=== PATIENT | female | born 1960 | race Caucasian/White ===

== ENCOUNTER 2020-05-30 08:24 | Outpatient (REF) | payer OTHER, SELFPAY ==
[2020-05-30 09:14] LABS: MANUAL DIFF FLAG NO
[2020-05-30 09:27] LABS: Basophils Percent Auto 0.6 % (0-2); Eosinophils Absolute Auto 0.2 X10*3/uL (0.0-0.4); Eosinophils Percent Auto 2.7 % (0-4); Hematocrit 44.3 % (37-47); Hemoglobin 14.8 g/dl (12.0-16.0); Imm Gran Abs Auto 0.02 X10*3/uL (0.00-0.03); Imm Gran Pct Auto 0.3 % (0.0-0.4); Lymphocytes Absolute Auto 2.2 X10*3/uL (1.2-4.9); Lymphocytes Percent Auto 35.1 % (20-40); Mean Corpuscular HGB Conc 33.4 g/dl (31.0-35.0); Mean Corpuscular Hemoglobin 29.7 pg (27.0-33.0); Mean Corpuscular Volume 88.8 fL (80-98); Mean Platelet Volume 10.8 fL (9.4-12.3); Monocytes Absolute Auto 0.4 X10*3/uL (0.1-1.2); Neutrophils Absolute Auto 3.5 X10*3/uL (2.0-8.3); Neutrophils Percent Auto 55.3 % (45-73); Platelet Count 260 X10*3/uL (160-400); Red Blood Count 4.99 X10*6/uL (4.20-5.50); Red Cell Distribution Width 12.2 % (11.0-16.0); White Blood Count 6.3 X10*3/uL (4.8-10.8)
[2020-05-30 09:35] LABS: Alanine Aminotransferase 17 U/L (0-31); Albumin Level 3.8 g/dL (3.5-5.0); Alkaline Phosphatase 121 U/L (39-117); Aspartate Amino Transferase 17 U/L (5-31); Bilirubin Total 0.7 mg/dL (0.0-1.0); Blood Urea Nitrogen 22 mg/dL (9-16); Calcium 9.4 mg/dL (8.4-10.2); Cholesterol 226 mg/dL; Estimated Glomerular Filt Rate > 60; Glucose Fasting 83 mg/dL (60-99); HDL Cholesterol 49 mg/dL; LDL Cholesterol Calculated 157 mg/dl; Total Protein 6.2 g/dL (6.5-8.0); Triglycerides 101 mg/dL
[2020-05-30 09:48] LABS: Anion Gap 9 (12-20); Carbon Dioxide 29 mmol/L (22-29); Chloride 104 mmol/L (96-108); Potassium 3.9 mmol/l (3.3-5.1); Sodium 138 mmol/L (135-145)
[2020-05-30 09:51] LABS: Vitamin D 25-OH Total 22.7 ng/mL (>30)
[2020-05-30 10:09] LABS: Estimated Average Glucose 278 mg/dL; Hemoglobin A1c % 11.3 %
[2020-05-30 10:12] LABS: Creatinine Urine 108.69 mg/dL; Microalbum/Creatinine Ratio Ur 107.6 ug/mg cr
[2020-05-30 13:06] LABS: Reflex LDLD? No
== END 2020-05-30 08:25 | disposition home or self-care (01) ==
LOC: HO.LAB 08:24
PROVIDERS: PCP Internal Medicine; Visit Provider Internal Medicine
DX: Z00.00 Encounter for general adult medical examination without abnormal findings (principal); I10 Essential (primary) hypertension; E78.00 Pure hypercholesterolemia, unspecified; E11.9 Type 2 diabetes mellitus without complications; E55.9 Vitamin D deficiency, unspecified; D72.820 Lymphocytosis (symptomatic); F34.1 Dysthymic disorder; N95.8 Other specified menopausal and perimenopausal disorders
CPT/HCPCS: 36415; 80053; 80061; 82043; 82306; 83036; 85025

== ENCOUNTER 2020-09-05 07:41 | Outpatient (REF) | payer OTHER, SELFPAY ==
[2020-09-05 08:43] LABS: Estimated Average Glucose 341 mg/dL; Hemoglobin A1c % 13.5 %
[2020-09-05 09:05] LABS: Blood Urea Nitrogen 29 mg/dL (9-16); Glucose Fasting 136 mg/dL (60-99)
[2020-09-05 09:15] LABS: Vitamin D 25-OH Total 21.2 ng/mL (>30)
== END 2020-09-05 07:42 | disposition home or self-care (01) ==
LOC: HO.LAB 07:41
PROVIDERS: PCP Internal Medicine; Visit Provider Internal Medicine
DX: E11.9 Type 2 diabetes mellitus without complications (principal); R79.9 Abnormal finding of blood chemistry, unspecified; E55.9 Vitamin D deficiency, unspecified
CPT/HCPCS: 36415; 82306; 82947; 83036; 84520

== ENCOUNTER 2020-10-28 07:07 | Outpatient (REF) | payer OTHER, SELFPAY ==
[2020-10-28 08:16] LABS: Blood Urea Nitrogen 19 mg/dL (9-16); Estimated Glomerular Filt Rate > 60
== END 2020-10-28 07:08 | disposition home or self-care (01) ==
LOC: HO.LAB 07:07
PROVIDERS: PCP Internal Medicine; Visit Provider Internal Medicine
DX: R79.9 Abnormal finding of blood chemistry, unspecified (principal)
CPT/HCPCS: 36415; 82565; 84520

== ENCOUNTER 2020-12-02 11:27 | Outpatient (REF) | payer OTHER, SELFPAY ==
[2020-12-02 11:42] LABS: MANUAL DIFF FLAG NO
[2020-12-02 12:04] LABS: Basophils Absolute Auto 0.1 X10*3/uL (0.0-0.2); Eosinophils Absolute Auto 0.1 X10*3/uL (0.0-0.4); Eosinophils Percent Auto 2.3 % (0-4); Hemoglobin 15.9 g/dl (12.0-16.0); Imm Gran Abs Auto 0.01 X10*3/uL (0.00-0.03); Imm Gran Pct Auto 0.2 % (0.0-0.4); Lymphocytes Percent Auto 37.9 % (20-40); Mean Corpuscular HGB Conc 33.1 g/dl (31.0-35.0); Mean Corpuscular Hemoglobin 29.6 pg (27.0-33.0); Mean Corpuscular Volume 89.4 fL (80-98); Mean Platelet Volume 12.4 fL (9.4-12.3); Monocytes Absolute Auto 0.4 X10*3/uL (0.1-1.2); Monocytes Percent Auto 7.4 % (2-11); Neutrophils Absolute Auto 2.7 X10*3/uL (2.0-8.3); Neutrophils Percent Auto 51.2 % (45-73); Platelet Count 275 X10*3/uL (160-400); Red Blood Count 5.37 X10*6/uL (4.20-5.50); Red Cell Distribution Width 12.5 % (11.0-16.0); White Blood Count 5.2 X10*3/uL (4.8-10.8)
[2020-12-02 12:37] LABS: Glucose Urine UA >=1000 MG/DL (NEG); Leukocyte Esterase Urine NEG (NEG); Nitrite Urine NEG (NEG); PH 5.5 (5.0-8.0); Specific Gravity - Urine 1.025 (1.005-1.025); Urine Blood TRACE (NEG); Urine Ketones 15 MG/DL (NEG); Urine Protein NEG (NEG-TRACE)
[2020-12-02 12:40] LABS: Appearance Urine HAZY; Color Urine YELLOW
[2020-12-02 12:49] LABS: Alanine Aminotransferase 13 U/L (0-31); Albumin Level 4.2 g/dL (3.5-5.0); Alkaline Phosphatase 91 U/L (39-117); Anion Gap 18 (12-20); Aspartate Amino Transferase 14 U/L (5-31); Bilirubin Total 1.6 mg/dL (0.0-1.0); Blood Urea Nitrogen 35 mg/dL (9-16); Calcium 10.2 mg/dL (8.4-10.2); Carbon Dioxide 27 mmol/L (22-29); Chloride 97 mmol/L (96-108); Cholesterol 293 mg/dL; Estimated Glomerular Filt Rate > 60; Glucose Fasting 345 mg/dL (60-99); HDL Cholesterol 49 mg/dL; LDL Cholesterol Calculated 220 mg/dl; Sodium 138 mmol/L (135-145); Triglycerides 121 mg/dL
[2020-12-02 12:53] LABS: Vitamin D 25-OH Total 41.6 ng/mL (>30)
[2020-12-02 13:01] LABS: Microalbum/Creatinine Ratio Ur 79.4 ug/mg cr
[2020-12-02 13:03] LABS: Reflex LDLD? No
[2020-12-02 13:11] LABS: Bacteria Urine 3+ /LPF; RBC Urine 0 /HPF (0); Squamous Epithelial Cell Urine 3+ /LPF
[2020-12-02 13:14] LABS: Estimated Average Glucose 232 mg/dL; Hemoglobin A1c % 9.7 %
== END 2020-12-02 11:28 | disposition home or self-care (01) ==
LOC: HO.LNP 11:27
PROVIDERS: Visit Provider Internal Medicine
DX: Z00.00 Encounter for general adult medical examination without abnormal findings (principal); E11.9 Type 2 diabetes mellitus without complications; I10 Essential (primary) hypertension; E78.00 Pure hypercholesterolemia, unspecified; R79.9 Abnormal finding of blood chemistry, unspecified; E55.9 Vitamin D deficiency, unspecified; D72.820 Lymphocytosis (symptomatic)
CPT/HCPCS: 80053; 80061; 81001; 81003; 82043; 82306; 83036; 85025

== ENCOUNTER 2020-12-11 18:51 | Emergency (ER) | payer OTHER, SELFPAY ==
--- NOTE | ~2020-12-11 | CT_ITS ---
EXAMINATION: CT ABDOMEN AND PELVIS WITHOUT CONTRAST CLINICAL INFORMATION: Left flank pain. COMPARISON: 10/13/2019. TECHNIQUE: Contiguous axial thin section helical images of the abdomen and pelvis were performed without oral or IV contrast. The data set was reformatted in the coronal and sagittal planes and reviewed on an independent workstation. DLP: 616 mGy-cm. FINDINGS: The visualized lung bases are clear. The visualized portions of the heart are unremarkable. The liver is of normal size and attenuation without focal lesions nor intrahepatic biliary ductal dilation. A normal gallbladder is identified. There is no wall thickening or discernible pericholecystic fluid. The spleen, pancreas, adrenal glands are unremarkable. Both kidneys are of normal size and attenuation without hydronephrosis or nephrolithiasis. There is no abdominal free fluid. There is neither mesenteric nor retroperitoneal lymphadenopathy. There is sigmoid diverticulosis without evidence of diverticulitis; otherwise, unremarkable unopacified loops of small and large bowel are identified. A normal appendix is identified. There is no pelvic free fluid. The urinary bladder is unremarkable. There is neither pelvic nor inguinal lymphadenopathy. Bone windows: Neither sclerotic nor lytic bone lesions are identified. CT/CT abdomen pelvis wo con IMPRESSION: Neither hydronephrosis nor nephrolithiasis. No acute abdominal or pelvic inflammatory or infectious processes. Sigmoid diverticulosis without evidence of diverticulitis. Automated exposure control (Care Dose) Adjustment of the mA and/or kv according to patient size (this includes techniques or standardized protocols for targeted exams where dose is matched to indication / reason for exam; i.e. extremities or head).
[2020-12-11 19:54] VITALS: BP 202/76; PULSE 84; RESP 18; O2SAT 96; BMI 32.5
[2020-12-11 20:11] LABS: MANUAL DIFF FLAG NO
[2020-12-11 20:14] LABS: Glucose Urine UA >=1000 MG/DL (NEG); Leukocyte Esterase Urine NEG (NEG); Nitrite Urine NEG (NEG); PH 5.5 (5.0-8.0); Urine Blood NEG (NEG); Urine Ketones 15 MG/DL (NEG); Urine Protein 1+ MG/DL (NEG-TRACE)
[2020-12-11 20:16] LABS: Appearance Urine HAZY; Color Urine YELLOW
[2020-12-11 20:25] LABS: Basophils Absolute Auto 0.1 X10*3/uL (0.0-0.2); Eosinophils Absolute Auto 0.1 X10*3/uL (0.0-0.4); Eosinophils Percent Auto 1.6 % (0-4); Hematocrit 47.4 % (37-47); Hemoglobin 15.7 g/dl (12.0-16.0); Imm Gran Abs Auto 0.03 X10*3/uL (0.00-0.03); Imm Gran Pct Auto 0.5 % (0.0-0.4); Lymphocytes Absolute Auto 1.9 X10*3/uL (1.2-4.9); Lymphocytes Percent Auto 30.8 % (20-40); Mean Corpuscular HGB Conc 33.1 g/dl (31.0-35.0); Mean Corpuscular Hemoglobin 29.1 pg (27.0-33.0); Mean Corpuscular Volume 87.9 fL (80-98); Mean Platelet Volume 11.4 fL (9.4-12.3); Monocytes Absolute Auto 0.4 X10*3/uL (0.1-1.2); Monocytes Percent Auto 7.1 % (2-11); Neutrophils Absolute Auto 3.7 X10*3/uL (2.0-8.3); Platelet Count 273 X10*3/uL (160-400); Red Blood Count 5.39 X10*6/uL (4.20-5.50); Red Cell Distribution Width 12.1 % (11.0-16.0); White Blood Count 6.2 X10*3/uL (4.8-10.8)
[2020-12-11 20:32] LABS: Bacteria Urine TRACE /LPF; Squamous Epithelial Cell Urine 2+ /LPF; UACC CULT YES
[2020-12-11 20:47] LABS: Anion Gap 14 (12-20); Blood Urea Nitrogen 9 mg/dL (9-16); Calcium 9.6 mg/dL (8.4-10.2); Carbon Dioxide 29 mmol/L (22-29); Chloride 101 mmol/L (96-108); Creatinine Clr Calc Pharmacy 79.5; Estimated Glomerular Filt Rate > 60; Glucose Random 302 mg/dL (60-115); Potassium 4.4 mmol/L (3.3-5.1); Sodium 140 mmol/L (135-145)
[2020-12-12] VITALS: RESP 16
--- NOTE | 2020-12-12 00:03 | ED_ITS ---
HPI - General Adult General Chief complaint: Abdominal Pain Stated complaint: Flank Pain Time Seen by Provider: 12/11/20 23:31 Source: patient Mode of arrival: ambulatory Limitations: no limitations History of Present Illness HPI narrative: Patient comes emergency room complaining of left flank pain. Started yesterday, denies any injury. Patient has history of kidney stones, states that usually she is able to pass them. Patient states that the pain is 8/10, radiating towards the groin area, constant mild pain but occasionally gets very painful. Patient denies dysuria or hematuria, no abdominal pain MD complaint: Flank pain Related Data Previous Rx's Medication Instructions Recorded baclofen 10 mg PO BID #10 tab 12/12/20 tramadol 50 mg PO BID PRN #6 tab 12/12/20 Allergies Allergy/AdvReac Type Severity Reaction Status Date / Time Penicillins [PENICILLINS] Allergy Severe RASH Unverified 05/16/20 18:43 Sulfa (Sulfonamide Allergy Severe THROMBOCYTOPENIA, Unverified 05/16/20 18:43 Antibiotics) severe [SULFA (SULFONAMIDE ANTIBIOTICS)] penicillin V Allergy Unknown rash Verified 01/17/20 00:00 Review of Systems Review of Systems: Constitutional : No Weight loss, No Fever, No Chills, No Night Sweats, No Fatigue, No Malaise ENT/Mouth : No Hearing loss, No Ear Pain, No Nasal Congestion, No Sinus Pain, No Hoarseness, No sore throat, No Rhinorrhea, No Swallowing Difficulty Eyes: No Eye Pain, No Swelling, No Redness, No Foreign Body, No Discharge, No Vision Changes Cardiovascular : No Chest Pain, No SOB, No Dyspnea on Exertion, No Orthopnea, No Edema, No Palpitations Respiratory : No Cough, No Sputum, No Wheezing, No Smoke Exposure, No Dyspnea Gastrointestinal : No Nausea, No Vomiting, No Diarrhea, No Constipation, No abdominal Pain, No Hematochezia, No Melena Genitourinary : no irregular bleeding, No Dysuria, No Urinary Frequency, No Hematuria, No Urinary Incontinence, No Urgency, No Flank Pain, No Urinary Flow Changes, No Hesitancy Back: Complaining of left flank pain Musculoskeletal : No joint pain, No Myalgias, No Joint Swelling Skin : No Skin Lesions, No rash Neuro : No Weakness, No Numbness, No Paresthesias, No Loss of Consciousness, No Dizziness, No Headache Psych : No Anxiety/Panic, No Depression, No SI/HI/AH/VH, No Social Issues, Heme/Lymph: No Bruising, No Bleeding,No Lymphadenopathy Endocrine : No Polyuria, No Polydipsia, No Temperature Intolerance [facility] Past Medical History Medical History (Updated 12/12/20 @ 01:56 by Savanah Davis MD) Diabetes Nephrolithiasis Social History Social History Alcohol intake: never Smoking Status: Never smoker Advance Directives: No Physical Exam Vital Signs: Vital Signs: Last Vital Signs Pulse 84 12/11/20 19:54 Resp 16 12/12/20 00:00 BP 202/76 H 12/11/20 19:54 Pulse Ox 96 12/11/20 19:54 Body Mass Index 32.5 Appearance: Alert. Oriented X3. No acute distress. Eyes: Pupils equal, round and reactive to light. ENT: Pharynx normal. Neck: Normal inspection. Neck supple. No lymph nodes noted. No crepitus CVS: Normal heart rate and rhythm. Pulses normal. Normal S1 and S2 Respiratory: No respiratory distress. Breath sounds normal. No Wheezing. No rales Abdomen: Soft and nontender. No rigidity. No distention. Back: Positive flank pain left side Skin: Skin warm and dry. Normal skin color. Normal skin turgor. Extremities: No lower extremity edema. No lower extremity edema. No Lacerations. No Rash Neuro: Oriented X 3. No motor deficit. No sensory deficit. Moving all extermities. No slurred speech. Course Course Course Narrative: I discussed the labs and imaging with the patient, patient does not have nephrolithiasis. Patient states that she feels a lot of muscles reno in the back. Patient will be given 1 dose p.o. Valium and then we will re-evaluate Patient states that she feels much better now, states that she feels a bit sort but the intense pain resolved. Patient's pain likely secondary to muscle spasms Medical Decision Making Lab Data Result diagrams: 12/11/20 20:04 12/11/20 20:04 Labs: Lab Results 12/11/20 12/11/20 12/11/20 Range/Units 20:04 20:04 20:04 WBC 6.2 (4.8-10.8) X10*3/uL RBC 5.39 (4.20-5.50) X10*6/uL Hgb 15.7 (12.0-16.0) g/dl Hct 47.4 H (37-47) % MCV 87.9 (80-98) fL MCH 29.1 (27.0-33.0) pg MCHC 33.1 (31.0-35.0) g/dl RDW 12.1 (11.0-16.0) % Plt Count 273 (160-400) X10*3/uL MPV 11.4 (9.4-12.3) fL Immature Gran % (Auto) 0.5 H (0.0-0.4) % Neut % (Auto) 59.0 (45-73) % Lymph % (Auto) 30.8 (20-40) % [place] % (Auto) 7.1 (2-11) % Eos % (Auto) 1.6 (0-4) % Baso % (Auto) 1.0 (0-2) % Lymph # (Auto) 1.9 (1.2-4.9) X10*3/uL [place] # (Auto) 0.4 (0.1-1.2) X10*3/uL Eos # (Auto) 0.1 (0.0-0.4) X10*3/uL Baso # (Auto) 0.1 (0.0-0.2) X10*3/uL Abs Immat Gran (auto) 0.03 (0.00-0.03) X10*3/uL Absolute Neuts (auto) 3.7 (2.0-8.3) X10*3/uL Absolute Nucleated RBC 0.000 (0.0-0.012) X10*3/uL Nucleated RBC % (auto) 0.0 (0.0-0.2) /100WBC Sodium 140 (135-145) mmol/L Potassium 4.4 (3.3-5.1) mmol/L Chloride 101 (96-108) mmol/L Carbon Dioxide 29 (22-29) mmol/L Anion Gap 14 (12-20) BUN 9 D (9-16) mg/dL Creatinine 0.76 (0.5-1.4) mg/dL Estim Creat Clear Calc 79.5 Estimated GFR > 60 Random Glucose 302 H (60-115) mg/dL Calcium 9.6 (8.4-10.2) mg/dL Urine Color YELLOW Urine Appearance HAZY Urine pH 5.5 (5.0-8.0) Ur Specific [place] 1.020 (1.005-1.025) Urine Protein 1+ H (NEG-TRACE) MG/DL Urine Glucose (UA) >=1000 H (NEG) MG/DL Urine Ketones 15 (NEG) MG/DL Urine Blood NEG (NEG) Urine Nitrite NEG (NEG) Ur Leukocyte Esterase NEG (NEG) Urine RBC 1-4 (0) /HPF Urine WBC 15-29 H (0-4) /HPF Ur Squamous Epith Cells 2+ /LPF Urine Bacteria TRACE /LPF Urine Yeast 1+ /HPF Imaging Data CT scan - abdomen: Radiologist's impression: FINDINGS: The visualized lung bases are clear. The visualized portions of the heart are unremarkable. The liver is of normal size and attenuation without focal lesions nor intrahepatic biliary ductal dilation. A normal gallbladder is identified. There is no wall thickening or discernible pericholecystic fluid. The spleen, pancreas, adrenal glands are unremarkable. Both kidneys are of normal size and attenuation without hydronephrosis or nephrolithiasis. There is no abdominal free fluid. There is neither mesenteric nor retroperitoneal lymphadenopathy. There is sigmoid diverticulosis without evidence of diverticulitis; otherwise, unremarkable unopacified loops of small and large bowel are identified. A normal appendix is identified. There is no pelvic free fluid. The urinary bladder is unremarkable. There is neither pelvic nor inguinal lymphadenopathy. Bone windows: Neither sclerotic nor lytic bone lesions are identified. CT/CT abdomen pelvis wo con IMPRESSION: Neither hydronephrosis nor nephrolithiasis. No acute abdominal or pelvic inflammatory or infectious processes. Sigmoid diverticulosis without evidence of diverticulitis. Automated exposure control (Care Dose) Adjustment of the mA and/or kv according to patient size (this includes techniques or standardized protocols for targeted exams where dose is matched to indication / reason for exam; i.e. extremities or head). Discharge Plan Discharge Clinical Impression: Spasm of back muscles Patient Disposition: Home, Self-Care Instructions: Muscle Spasm (ED) Additional Instructions: Please follow-up with your primary care physician tomorrow. If you have any worsening or new symptoms, please return to the emergency room or call 911 Prescriptions: New baclofen 10 mg tablet 10 mg PO BID Qty: 10 RF: 0 tramadol 50 mg tablet 50 mg PO BID PRN (Reason: pain) Qty: 6 RF: 0
--- NOTE | 2020-12-12 00:06 | PC.NURSE ---
PT OFF FLOOR TO CT.
[2020-12-12] MEDS: 0.9 % Sodium Chloride 1,000 ML 999 ML IVCONT (00:50)
[2020-12-12] MEDS: Ketorolac Tromethamine 30 MG/ML VIAL IVPUSH (00:50)
[2020-12-12] MEDS: ondansetron HCL 4 MG/2 ML VIAL IVPUSH (00:50)
[2020-12-12] MEDS: diazePAM 5 MG TABLET PO (01:01)
[2020-12-12] MEDS: Morphine Sulfate 2 MG/ML CARTRIDGE IVPUSH (01:01)
== END 2020-12-12 02:26 | disposition home or self-care (01) ==
PROVIDERS: Emergency Provider Emergency Medicine; PCP Internal Medicine
DX: M62.830 Muscle spasm of back (principal); R10.9 Unspecified abdominal pain; Z79.899 Other long term (current) drug therapy
CPT/HCPCS: 36415; 74176; 80048; 81001; 85025; 87086; 96365; 96374; 96375; 99284; J1885; J2270; J2405

== ENCOUNTER 2020-12-31 10:32 | Outpatient (REF) | payer OTHER, SELFPAY ==
[2020-12-31 11:50] LABS: Blood Urea Nitrogen 14 mg/dL (9-16)
== END 2020-12-31 10:33 | disposition home or self-care (01) ==
LOC: HO.LNP 10:32
PROVIDERS: Visit Provider Internal Medicine
DX: R79.89 Other specified abnormal findings of blood chemistry (principal)
CPT/HCPCS: 84520

== ENCOUNTER 2021-03-06 10:20 | Outpatient (REF) | payer OTHER, SELFPAY ==
[2021-03-06 11:41] LABS: Alanine Aminotransferase 14 U/L (0-31); Albumin Level 3.8 g/dL (3.5-5.0); Alkaline Phosphatase 91 U/L (39-117); Aspartate Amino Transferase 20 U/L (5-31); Bilirubin Direct 0.5 mg/dL (0.0-0.5); Bilirubin Total 1.6 mg/dL (0.0-1.0); Cholesterol 238 mg/dL; HDL Cholesterol 47 mg/dL; LDL Cholesterol Calculated 163 mg/dl; Total Protein 6.4 g/dL (6.5-8.0); Triglycerides 144 mg/dL
[2021-03-06 11:42] LABS: Reflex LDLD? No
== END 2021-03-06 10:21 | disposition home or self-care (01) ==
LOC: HO.LNP 10:20
PROVIDERS: Visit Provider Internal Medicine
DX: E78.00 Pure hypercholesterolemia, unspecified (principal)
CPT/HCPCS: 80061; 80076

== ENCOUNTER → 2021-06-13 11:21 | Outpatient (BNVA) | payer SELFPAY | PROVIDERS: PCP Internal Medicine | DX: R76.11 Nonspecific reaction to tuberculin skin test without active tuberculosis (principal) ==

== ENCOUNTER 2021-12-05 19:39 | Inpatient (IN) | payer OTHER, SELFPAY ==
--- NOTE | 2021-12-05 | ECG_ITS ---
Test Reason : DYSPNEA Blood Pressure : / mmHG Vent. Rate : 128 BPM Atrial Rate : 128 BPM P-R Int : 192 ms QRS Dur : 066 ms QT Int : 266 ms P-R-T Axes : 074 050 195 degrees QTc Int : 388 ms Sinus tachycardia Left atrial enlargement ST & T wave abnormality, consider inferolateral ischemia Abnormal ECG No previous ECGs available Referred By: Generic ED Physician Electronically Signed By:CHRISTINA MCKEON MD
--- NOTE | ~2021-12-05 | XR_ITS ---
EXAMINATION: XR CHEST CLINICAL INFORMATION: 61-year-old female with shortness of breath COMPARISON: 10/09/2019 TECHNIQUE: Frontal view of the chest was obtained. FINDINGS: Allowing for difference in position and technique. There is no interval change in appearance of clear lungs and normal cardiomediastinal silhouette. XR/XR chest 1V IMPRESSION: No interval change and no acute abnormalities
[2021-12-05 20:02] VITALS: BP 200/104; PULSE 139; RESP 40; TEMP 37.2; O2SAT 98; BMI 23.5
[2021-12-05 20:07] LABS: Glucose, Whole Blood 462 mg/dL (60-115)
[2021-12-05 20:09] LABS: MANUAL DIFF FLAG NO
[2021-12-05 20:11] LABS: Basophils Absolute Auto 0.1 X10*3/uL (0.0-0.2); Basophils Percent Auto 0.7 % (0-2); Eosinophils Percent Auto 0.1 % (0-4); Hematocrit 54.1 % (37.0-47.0); Hemoglobin 17.4 g/dl (12.0-16.0); Imm Gran Abs Auto 0.37 X10*3/uL (0.00-0.03); Imm Gran Pct Auto 2.8 % (0.0-0.4); Lymphocytes Absolute Auto 3.7 X10*3/uL (1.2-4.9); Lymphocytes Percent Auto 27.8 % (20-40); Mean Corpuscular HGB Conc 32.2 g/dl (31.0-35.0); Mean Corpuscular Hemoglobin 29.9 pg (27.0-33.0); Mean Platelet Volume 10.7 fL (9.4-12.3); Monocytes Percent Auto 7.2 % (2-11); Neutrophils Absolute Auto 8.2 x10*3/uL (2.0-8.3); Neutrophils Percent Auto 61.4 % (45-73); Platelet Count 376 X10*3/uL (160-400); Red Blood Count 5.82 X10*6/uL (4.20-5.50); White Blood Count 13.4 X10*3/uL (4.8-10.8)
[2021-12-05 20:12] VITALS: BP 158/93; PULSE 126; RESP 30; O2SAT 99
[2021-12-05 20:17] LABS: Venous Blood Gas Refer to POC result
[2021-12-05 20:18] LABS: VBG Base Excess -28.1 mmol/L; VBG HCO3 3 mmol/L (22-26); VBG pCO2 16 mmHg; VBG pO2 65 mmHg
--- NOTE | 2021-12-05 20:22 | ED.SOB ---
HPI - SOB/Dyspnea General Chief Complaint: Dyspnea Stated Complaint: SoB, general faitgue Time Seen by Provider: 12/05/21 20:16 Source: patient Mode of arrival: ambulatory Limitations: no limitations History of Present Illness HPI Narrative: 61 years old female came in for evaluation of shortness of breath. insulin-dependent diabetes came in for shortness of breath for 1 day, patient has been compliant with her Humalog used as sliding scale and 70/30 insulin take 60 units in the morning, patient declined any fever or chills or sign of infection in particular no urinary symptoms except for polyuria and polydipsia, no abdominal pain. Patient never had complicated diabetes issue in the past. Related Data Home Medications Medication Instructions Recorded Confirmed albuterol sulfate 90 mcg/actuation 2 puff INHALATION Q4H PRN 12/05/21 12/05/21 aerosol inhaler amlodipine 5 mg tablet 1 tab PO DAILY 12/05/21 12/05/21 atorvastatin 80 mg tablet 1 tab PO DAILY 12/05/21 12/05/21 insulin NPH-regular 70-30 U-100 60 unit SUBCUT DAILY 12/05/21 insulin 100 unit/mL subcutaneous pen insulin lispro 100 unit/mL 1 sliding scale dose SUBCUT 12/05/21 12/05/21 subcutaneous pen (Humalog KwikPen USEASDIRECTD (U-100) Insulin) lisinopril 20 1 tab PO DAILY 12/05/21 12/05/21 mg-hydrochlorothiazide 25 mg tablet metformin 1,000 mg tablet 1 tab PO BID 12/05/21 12/05/21 sertraline 100 mg tablet 1 tab PO DAILY 12/05/21 12/05/21 Allergies Allergy/AdvReac Type Severity Reaction Status Date / Time Penicillins [PENICILLINS] Allergy Severe RASH Verified 12/05/21 20:04 Sulfa (Sulfonamide Allergy Severe THROMBOCYTOPENIA, Verified 12/05/21 20:04 Antibiotics) severe [SULFA (SULFONAMIDE ANTIBIOTICS)] penicillin V Allergy Unknown rash Verified 12/05/21 20:04 Review of Systems Review of Systems: All other systems are reviewed and are negative Constitutional: Reports as per HPI and Reports no additional constitutional complaints Eyes: Reports as per HPI and Reports no additional eye complaints Reports system reviewed and no additional complaints, except as documented Cardiovascular: Reports as per HPI and Reports no additional cardiovascular complaints Respiratory: Reports as per HPI and Reports no additional respiratory complaints Gastrointestinal: Reports as per HPI and Reports no additional gastrointestinal complaints Genitourinary: Reports no additional female genitourinary complaints Musculoskeletal: Reports no additional musculoskeletal complaints Skin/Breast: Reports system reviewed and no additional complaints, except as docu Psychiatric: Reports no additional psychiatric complaints Endocrine: Reports no additional endocrine complaints Hematologic/Lymphatic: Reports no additional hematologic/lymphatic complaints Allergic/Immunologic: Reports no additional allergic/immunologic complaints Reports system reviewed and no additional complaints, except as documented and Reports Abnormal speech present [facility] Past Medical History Medical History Diabetes Nephrolithiasis Social History Social History Alcohol intake: never Advance Directives: No Advance Directives Information Provided: No Physical Exam Vital Signs: Vital Signs: Last Vital Signs Temp 99 F 12/05/21 20:02 Pulse 122 H 12/05/21 21:26 Resp 28 H 12/05/21 21:26 BP 192/90 H 12/05/21 21:26 Pulse Ox 97 12/05/21 21:26 BMI result Body Mass Index 23.5 vital signs have been reviewed as appeared to be correct. Blood pressure normal. Heart rate elevated. Respiration rate elevated. Temperature normal. Oxygen saturation normal. Appearance: Alert. appear in acute distress due to tachypnea. Head: Normal external exam. Normocephalic. Atraumatic. No Morton signs noted. No raccoon eyes noted Eyes: PERRLA. EOMI. Conjunctiva and sclera normal. Eyelids normal. ENT: TM's Normal. Pharynx normal. Uvula midline. Dry mucous membranes. No trismus noted. No drooling noted. No muffled voice noted. Neck: Normal inspection. Neck supple. FROM. No adenopathy. Thyroid Normal. No meningeal signs. No neck mass noted. CVS: Normal heart rate and rhythm. Heart sound normal. No murmurs noted. Pulses normal throughout. Respiratory: . Painless inspiration. Breath sounds normal. No wheezes/rales/rhonchi noted. Chest nontender. No accessory muscle usage noted or decreased air movement noted. Abdomen: Soft and nontender. Bowel sounds normal in all 4 quadrants. No distention noted. No organomegaly noted. No visible injury noted. Back: No CVA tenderness. Full range of motion noted. Skin: Diffuse skin mottling. Extremities: No lower extremity edema. Extremities exhibit normal range of motion. Extremities nontender. Neuro: Oriented X 3. Cranial nerve exam: II-XII are grossly intact No motor deficit. No sensory deficit. Reflexes normal. Course Course Course Narrative: Assessment and plan. 61-year-old female in history of insulin diabetes type 1, came in with DKA of unclear underlying etiology, patient is dehydrated, patient is not producing urine yet, patient received 2 L of normal saline and started on insulin drip as per protocol. Reevaluation(s) Reevaluation #1: patient finished the 2 L of normal saline feeling subjectively better, however patient still tachypneic and tachycardic and appear dehydrated, repeat labs showed almost unchanged severe acidosis and very low bicarb. Will replete potassium IV, will give the patient bicarb replacement, continue with the insulin drip, broad-spectrum antibiotic for empirical coverage,cautiously continue IV hydration. Time: 11:00 Reevaluation #2: Patient feeling better, look more hydrated, breathing is feeling better, admit patient to ICU the case discussed with Dr. Rizzo. Time: 23:33 MDM - SOB/Dyspnea Medical Records Attestation: I reviewed the patient's medical records. Lab Data Attestation: I reviewed the patient's lab results. Result diagrams: 12/05/21 20:00 12/05/21 22:29 Labs: Lab Results 12/05/21 12/05/21 12/05/21 Range/Units 19:49 20:00 20:00 WBC 13.4 H (4.8-10.8) X10*3/uL RBC 5.82 H (4.20-5.50) X10*6/uL Hgb 17.4 H (12.0-16.0) g/dl Hct 54.1 H (37.0-47.0) % MCV 93.0 (80.0-98.0) fL MCH 29.9 (27.0-33.0) pg MCHC 32.2 (31.0-35.0) g/dl RDW 12.0 (11.0-16.0) % Plt Count 376 (160-400) X10*3/uL MPV 10.7 (9.4-12.3) fL Immature Gran % (Auto) 2.8 H (0.0-0.4) % Neut % (Auto) 61.4 (45-73) % Lymph % (Auto) 27.8 (20-40) % [place] % (Auto) 7.2 (2-11) % Eos % (Auto) 0.1 (0-4) % Baso % (Auto) 0.7 (0-2) % Lymph # (Auto) 3.7 (1.2-4.9) X10*3/uL [place] # (Auto) 1.0 (0.1-1.2) X10*3/uL Eos # (Auto) 0.0 (0.0-0.4) X10*3/uL Baso # (Auto) 0.1 (0.0-0.2) X10*3/uL Abs Immat Gran (auto) 0.37 H (0.00-0.03) X10*3/uL Absolute Neuts (auto) 8.2 (2.0-8.3) x10*3/uL Absolute Nucleated RBC 0.000 (0.0-0.012) X10*3/uL Nucleated RBC % (auto) 0.0 (0.0-0.2) /100WBC VBG pH (7.32-7.43) VBG pCO2 mmHg VBG pO2 mmHg VBG HCO3 (22-26) mmol/L VBG O2 Saturation % VBG Base Excess mmol/L Sodium 134 L (135-145) mmol/L Potassium 3.8 (3.3-5.1) mmol/L Chloride 101 (96-108) mmol/L Carbon Dioxide 5 L* D (22-29) mmol/L Anion Gap 32 H (12-20) BUN 17 H (9-16) mg/dL Creatinine 1.76 H (0.5-1.4) mg/dL Estim Creat Clear Calc 32.2 Estimated GFR 29 POC Glucose 462 H* (60-115) mg/dL Random Glucose 512 H* (60-115) mg/dL Osmolality (281-305) mosm/kg Lactic Acid (0.5-2.0) mmol/L Lactic Acid F/U @ 2Hr (0.5-2.0) mmol/L Calcium 10.5 H D (8.4-10.2) mg/dL Phosphorus (2.7-4.5) mg/dL Magnesium (1.6-2.6) mg/dL Total Bilirubin 0.4 (0.0-1.0) mg/dL AST 20 (5-31) U/L ALT 20 (0-31) U/L Alkaline Phosphatase 151 H D (39-117) U/L Troponin I High Sens (<3.5-17.0) ng/L Total Protein 7.9 D (6.5-8.0) g/dL Albumin 4.5 (3.5-5.0) g/dL Triglycerides mg/dL Lipase (8-78) U/L Salicylates (15-30) mg/dL Acetaminophen (<30) mcg/mL Ethyl Alcohol mg/dL Acetone, Qual (Negative) COVID-19 ([facility]) (Negative) COVID-19 Clin Com 12/05/21 12/05/21 12/05/21 Range/Units 20:00 20:00 20:07 WBC (4.8-10.8) X10*3/uL RBC (4.20-5.50) X10*6/uL Hgb (12.0-16.0) g/dl Hct (37.0-47.0) % MCV (80.0-98.0) fL MCH (27.0-33.0) pg MCHC (31.0-35.0) g/dl RDW (11.0-16.0) % Plt Count (160-400) X10*3/uL MPV (9.4-12.3) fL Immature Gran % (Auto) (0.0-0.4) % Neut % (Auto) (45-73) % Lymph % (Auto) (20-40) % [place] % (Auto) (2-11) % Eos % (Auto) (0-4) % Baso % (Auto) (0-2) % Lymph # (Auto) (1.2-4.9) X10*3/uL [place] # (Auto) (0.1-1.2) X10*3/uL Eos # (Auto) (0.0-0.4) X10*3/uL Baso # (Auto) (0.0-0.2) X10*3/uL Abs Immat Gran (auto) (0.00-0.03) X10*3/uL Absolute Neuts (auto) (2.0-8.3) x10*3/uL Absolute Nucleated RBC (0.0-0.012) X10*3/uL Nucleated RBC % (auto) (0.0-0.2) /100WBC VBG pH 6.90 L* (7.32-7.43) VBG pCO2 16 mmHg VBG pO2 65 mmHg VBG HCO3 3 L (22-26) mmol/L VBG O2 Saturation 86.0 % VBG Base Excess -28.1 mmol/L Sodium (135-145) mmol/L Potassium (3.3-5.1) mmol/L Chloride (96-108) mmol/L Carbon Dioxide (22-29) mmol/L Anion Gap (12-20) BUN (9-16) mg/dL Creatinine (0.5-1.4) mg/dL Estim Creat Clear Calc Estimated GFR POC Glucose (60-115) mg/dL Random Glucose (60-115) mg/dL Osmolality (281-305) mosm/kg Lactic Acid 2.9 H* (0.5-2.0) mmol/L Lactic Acid F/U @ 2Hr (0.5-2.0) mmol/L Calcium (8.4-10.2) mg/dL Phosphorus (2.7-4.5) mg/dL Magnesium (1.6-2.6) mg/dL Total Bilirubin (0.0-1.0) mg/dL AST (5-31) U/L ALT (0-31) U/L Alkaline Phosphatase (39-117) U/L Troponin I High Sens 13.1 (<3.5-17.0) ng/L Total Protein (6.5-8.0) g/dL Albumin (3.5-5.0) g/dL Triglycerides mg/dL Lipase (8-78) U/L Salicylates (15-30) mg/dL Acetaminophen (<30) mcg/mL Ethyl Alcohol mg/dL Acetone, Qual (Negative) COVID-19 ([facility]) (Negative) COVID-19 Clin Com 12/05/21 12/05/21 12/05/21 Range/Units 22:04 22:08 22:29 WBC (4.8-10.8) X10*3/uL RBC (4.20-5.50) X10*6/uL Hgb (12.0-16.0) g/dl Hct (37.0-47.0) % MCV (80.0-98.0) fL MCH (27.0-33.0) pg MCHC (31.0-35.0) g/dl RDW (11.0-16.0) % Plt Count (160-400) X10*3/uL MPV (9.4-12.3) fL Immature Gran % (Auto) (0.0-0.4) % Neut % (Auto) (45-73) % Lymph % (Auto) (20-40) % [place] % (Auto) (2-11) % Eos % (Auto) (0-4) % Baso % (Auto) (0-2) % Lymph # (Auto) (1.2-4.9) X10*3/uL [place] # (Auto) (0.1-1.2) X10*3/uL Eos # (Auto) (0.0-0.4) X10*3/uL Baso # (Auto) (0.0-0.2) X10*3/uL Abs Immat Gran (auto) (0.00-0.03) X10*3/uL Absolute Neuts (auto) (2.0-8.3) x10*3/uL Absolute Nucleated RBC (0.0-0.012) X10*3/uL Nucleated RBC % (auto) (0.0-0.2) /100WBC VBG pH (7.32-7.43) VBG pCO2 mmHg VBG pO2 mmHg VBG HCO3 (22-26) mmol/L VBG O2 Saturation % VBG Base Excess mmol/L Sodium (135-145) mmol/L Potassium (3.3-5.1) mmol/L Chloride (96-108) mmol/L Carbon Dioxide (22-29) mmol/L Anion Gap (12-20) BUN (9-16) mg/dL Creatinine (0.5-1.4) mg/dL Estim Creat Clear Calc Estimated GFR POC Glucose 398 H* (60-115) mg/dL Random Glucose (60-115) mg/dL Osmolality 325 H (281-305) mosm/kg Lactic Acid (0.5-2.0) mmol/L Lactic Acid F/U @ 2Hr (0.5-2.0) mmol/L Calcium (8.4-10.2) mg/dL Phosphorus (2.7-4.5) mg/dL Magnesium (1.6-2.6) mg/dL Total Bilirubin (0.0-1.0) mg/dL AST (5-31) U/L ALT (0-31) U/L Alkaline Phosphatase (39-117) U/L Troponin I High Sens (<3.5-17.0) ng/L Total Protein (6.5-8.0) g/dL Albumin (3.5-5.0) g/dL Triglycerides mg/dL Lipase (8-78) U/L Salicylates (15-30) mg/dL Acetaminophen (<30) mcg/mL Ethyl Alcohol < 10 mg/dL Acetone, Qual (Negative) COVID-19 ([facility]) (Negative) COVID-19 Clin Com 12/05/21 12/05/21 12/05/21 Range/Units 22:29 22:29 22:29 WBC (4.8-10.8) X10*3/uL RBC (4.20-5.50) X10*6/uL Hgb (12.0-16.0) g/dl Hct (37.0-47.0) % MCV (80.0-98.0) fL MCH (27.0-33.0) pg MCHC (31.0-35.0) g/dl RDW (11.0-16.0) % Plt Count (160-400) X10*3/uL MPV (9.4-12.3) fL Immature Gran % (Auto) (0.0-0.4) % Neut % (Auto) (45-73) % Lymph % (Auto) (20-40) % [place] % (Auto) (2-11) % Eos % (Auto) (0-4) % Baso % (Auto) (0-2) % Lymph # (Auto) (1.2-4.9) X10*3/uL [place] # (Auto) (0.1-1.2) X10*3/uL Eos # (Auto) (0.0-0.4) X10*3/uL Baso # (Auto) (0.0-0.2) X10*3/uL Abs Immat Gran (auto) (0.00-0.03) X10*3/uL Absolute Neuts (auto) (2.0-8.3) x10*3/uL Absolute Nucleated RBC (0.0-0.012) X10*3/uL Nucleated RBC % (auto) (0.0-0.2) /100WBC VBG pH (7.32-7.43) VBG pCO2 mmHg VBG pO2 mmHg VBG HCO3 (22-26) mmol/L VBG O2 Saturation % VBG Base Excess mmol/L Sodium (135-145) mmol/L Potassium (3.3-5.1) mmol/L Chloride (96-108) mmol/L Carbon Dioxide (22-29) mmol/L Anion Gap (12-20) BUN (9-16) mg/dL Creatinine (0.5-1.4) mg/dL Estim Creat Clear Calc Estimated GFR POC Glucose (60-115) mg/dL Random Glucose (60-115) mg/dL Osmolality (281-305) mosm/kg Lactic Acid (0.5-2.0) mmol/L Lactic Acid F/U @ 2Hr 2.9 H* (0.5-2.0) mmol/L Calcium (8.4-10.2) mg/dL Phosphorus (2.7-4.5) mg/dL Magnesium (1.6-2.6) mg/dL Total Bilirubin (0.0-1.0) mg/dL AST (5-31) U/L ALT (0-31) U/L Alkaline Phosphatase (39-117) U/L Troponin I High Sens (<3.5-17.0) ng/L Total Protein (6.5-8.0) g/dL Albumin (3.5-5.0) g/dL Triglycerides 576 mg/dL Lipase 75 (8-78) U/L Salicylates 6.2 L (15-30) mg/dL Acetaminophen < 1 (<30) mcg/mL Ethyl Alcohol mg/dL Acetone, Qual Large H (Negative) COVID-19 ([facility]) (Negative) COVID-19 Clin Com 12/05/21 12/05/21 12/05/21 Range/Units 22:29 22:29 22:30 WBC (4.8-10.8) X10*3/uL RBC (4.20-5.50) X10*6/uL Hgb (12.0-16.0) g/dl Hct (37.0-47.0) % MCV (80.0-98.0) fL MCH (27.0-33.0) pg MCHC (31.0-35.0) g/dl RDW (11.0-16.0) % Plt Count (160-400) X10*3/uL MPV (9.4-12.3) fL Immature Gran % (Auto) (0.0-0.4) % Neut % (Auto) (45-73) % Lymph % (Auto) (20-40) % [place] % (Auto) (2-11) % Eos % (Auto) (0-4) % Baso % (Auto) (0-2) % Lymph # (Auto) (1.2-4.9) X10*3/uL [place] # (Auto) (0.1-1.2) X10*3/uL Eos # (Auto) (0.0-0.4) X10*3/uL Baso # (Auto) (0.0-0.2) X10*3/uL Abs Immat Gran (auto) (0.00-0.03) X10*3/uL Absolute Neuts (auto) (2.0-8.3) x10*3/uL Absolute Nucleated RBC (0.0-0.012) X10*3/uL Nucleated RBC % (auto) (0.0-0.2) /100WBC VBG pH (7.32-7.43) VBG pCO2 mmHg VBG pO2 mmHg VBG HCO3 (22-26) mmol/L VBG O2 Saturation % VBG Base Excess mmol/L Sodium 137 (135-145) mmol/L Potassium 3.8 (3.3-5.1) mmol/L Chloride 107 (96-108) mmol/L Carbon Dioxide < 5 L* (22-29) mmol/L Anion Gap TNP (12-20) BUN 18 H (9-16) mg/dL Creatinine 1.56 H (0.5-1.4) mg/dL Estim Creat Clear Calc 36.3 Estimated GFR 34 POC Glucose (60-115) mg/dL Random Glucose 420 H* (60-115) mg/dL Osmolality (281-305) mosm/kg Lactic Acid (0.5-2.0) mmol/L Lactic Acid F/U @ 2Hr (0.5-2.0) mmol/L Calcium 9.6 D 9.7 (8.4-10.2) mg/dL Phosphorus 4.4 (2.7-4.5) mg/dL Magnesium 2.2 (1.6-2.6) mg/dL Total Bilirubin (0.0-1.0) mg/dL AST (5-31) U/L ALT (0-31) U/L Alkaline Phosphatase (39-117) U/L Troponin I High Sens (<3.5-17.0) ng/L Total Protein (6.5-8.0) g/dL Albumin (3.5-5.0) g/dL Triglycerides mg/dL Lipase (8-78) U/L Salicylates (15-30) mg/dL Acetaminophen (<30) mcg/mL Ethyl Alcohol mg/dL Acetone, Qual (Negative) COVID-19 ([facility]) Negative (Negative) COVID-19 Clin Com See Note 12/05/21 Range/Units 22:33 WBC (4.8-10.8) X10*3/uL RBC (4.20-5.50) X10*6/uL Hgb (12.0-16.0) g/dl Hct (37.0-47.0) % MCV (80.0-98.0) fL MCH (27.0-33.0) pg MCHC (31.0-35.0) g/dl RDW (11.0-16.0) % Plt Count (160-400) X10*3/uL MPV (9.4-12.3) fL Immature Gran % (Auto) (0.0-0.4) % Neut % (Auto) (45-73) % Lymph % (Auto) (20-40) % [place] % (Auto) (2-11) % Eos % (Auto) (0-4) % Baso % (Auto) (0-2) % Lymph # (Auto) (1.2-4.9) X10*3/uL [place] # (Auto) (0.1-1.2) X10*3/uL Eos # (Auto) (0.0-0.4) X10*3/uL Baso # (Auto) (0.0-0.2) X10*3/uL Abs Immat Gran (auto) (0.00-0.03) X10*3/uL Absolute Neuts (auto) (2.0-8.3) x10*3/uL Absolute Nucleated RBC (0.0-0.012) X10*3/uL Nucleated RBC % (auto) (0.0-0.2) /100WBC VBG pH 6.88 L* (7.32-7.43) VBG pCO2 19 mmHg VBG pO2 51 mmHg VBG HCO3 4 L (22-26) mmol/L VBG O2 Saturation 76.0 % VBG Base Excess -28.2 mmol/L Sodium (135-145) mmol/L Potassium (3.3-5.1) mmol/L Chloride (96-108) mmol/L Carbon Dioxide (22-29) mmol/L Anion Gap (12-20) BUN (9-16) mg/dL Creatinine (0.5-1.4) mg/dL Estim Creat Clear Calc Estimated GFR POC Glucose (60-115) mg/dL Random Glucose (60-115) mg/dL Osmolality (281-305) mosm/kg Lactic Acid (0.5-2.0) mmol/L Lactic Acid F/U @ 2Hr (0.5-2.0) mmol/L Calcium (8.4-10.2) mg/dL Phosphorus (2.7-4.5) mg/dL Magnesium (1.6-2.6) mg/dL Total Bilirubin (0.0-1.0) mg/dL AST (5-31) U/L ALT (0-31) U/L Alkaline Phosphatase (39-117) U/L Troponin I High Sens (<3.5-17.0) ng/L Total Protein (6.5-8.0) g/dL Albumin (3.5-5.0) g/dL Triglycerides mg/dL Lipase (8-78) U/L Salicylates (15-30) mg/dL Acetaminophen (<30) mcg/mL Ethyl Alcohol mg/dL Acetone, Qual (Negative) COVID-19 ([facility]) (Negative) COVID-19 Clin Com Critical Care Time Critical Care Time Critical Care Time: Yes Total Critical Care Time: 60 Attestation: I spent 60 minutes providing critical care service to the patient, this including time spent at the bedside to evaluate the patient, reassess the patient, monitoring vital signs, review labs, and radiographic studies, counseling the patient/family, discussing the case with consultants, disposition the patient. Discharge Plan Discharge Clinical Impression: DKA (diabetic ketoacidosis) Patient Disposition: Admitted As Inpatient
[2021-12-05] MEDS: 0.9 % Sodium Chloride 1,000 ML 999 ML IV ×2 (20:28→22:07)
[2021-12-05 20:29] LABS: Lactic Acid 2.9 mmol/L (0.5-2.0)
[2021-12-05 20:35] LABS: Troponin-I High Sensitivity 13.1 ng/L (<3.5-17.0)
[2021-12-05 20:38] LABS: Glucose Random 512 mg/dL (60-115)
[2021-12-05 20:47] LABS: Alanine Aminotransferase 20 U/L (0-31); Albumin Level 4.5 g/dL (3.5-5.0); Alkaline Phosphatase 151 U/L (39-117); Aspartate Amino Transferase 20 U/L (5-31); Bilirubin Total 0.4 mg/dL (0.0-1.0); Blood Urea Nitrogen 17 mg/dL (9-16); Calcium 10.5 mg/dL (8.4-10.2); Carbon Dioxide 5 mmol/L (22-29); Chloride 101 mmol/L (96-108); Creatinine Clr Calc Pharmacy 32.2; Estimated Glomerular Filt Rate 29; Potassium 3.8 mmol/L (3.3-5.1); Sodium 134 mmol/L (135-145); Total Protein 7.9 g/dL (6.5-8.0)
[2021-12-05 20:48] LABS: Anion Gap 32 (12-20)
[2021-12-05] MEDS: Insulin Regular/NS 100 UNIT/100 ML PLAST..BAG IVCONT ×3 (21:07→23:15)
--- NOTE | 2021-12-05 21:11 | PC.NURSE ---
Pt bolus with 10u insulin per protocol with edward quiros rn at bedside for verification before beginning gtt at 5u/hr
[2021-12-05 21:26] VITALS: BP 192/90; PULSE 122; RESP 28; O2SAT 97
[2021-12-05 22:05] LABS: Reflex Lactate? Lactic Acid Added
[2021-12-05 22:09] LABS: Glucose, Whole Blood 398 mg/dL (60-115)
--- NOTE | 2021-12-05 22:13 | PC.NURSE ---
Georgina BALTAZAR to bedside, aware of difficulty with lab draw. Pt with mottling to arms and legs. Pt remains on bedside radiation monitor. This RN asks Dr Kern and then Georgina BALTAZAR if they would like potassium repletion which they say no to at this time. K pending repeat BMP.
--- NOTE | 2021-12-05 22:23 | PHA.MEDREC ---
Pharmacy Consult ? Medication Reconciliation Pharmacy has completed the medication reconciliation. Pt states she takes humalog sliding scale and 70/30 60 units daily She also states taking metformin, lisinopril/hctz, atorvastatin, sertraline, amlodipine, and albuterol. Her last fill for these was 06/10/2021. There is no recent fill history for insulins and the pharmacy she uses is closed for the night. Will leave a note for [facility] to follow up with Lisa
[2021-12-05 22:29] LABS: Ethanol < 10 mg/dL
[2021-12-05 22:40] LABS: Venous Blood Gas Refer to POC result
[2021-12-05 22:41] LABS: VBG Base Excess -28.2 mmol/L; VBG HCO3 4 mmol/L (22-26); VBG pCO2 19 mmHg; VBG pH 6.88 (7.32-7.43); VBG pO2 51 mmHg
[2021-12-05 22:46] LABS: Acetone, serum QL Large (Negative)
[2021-12-05 22:51] LABS: Osmolality, Serum 325 mosm/kg (281-305)
[2021-12-05 22:53] LABS: COVID-19 Test Negative (Negative); IDNOW Serial# 55D5AD1C
[2021-12-05 22:54] LABS: Calcium 9.7 mg/dL (8.4-10.2); Magnesium 2.2 mg/dL (1.6-2.6); Phosphorus 4.4 mg/dL (2.7-4.5)
--- NOTE | 2021-12-05 22:54 | P.HPCC_ITS ---
History of Present Illness Date of Service: 12/05/21 <Demetria Rose PA-C - Last Filed: 12/06/21 05:55> Attending physician on admission: Jim Rizzo <Demetria Rose PA-C - Last Filed: 12/06/21 05:55> Chief Complaint: DKA <Demetria Rose PA-C - Last Filed: 12/06/21 05:55> Patient is a 61-year-old female with a past medical history of type 1 diabetes, HTN, HLD, kidney stones and asthma who came into the emergency department earlier today stating she was short of breath since yesterday. Patient states she last used her 60U of 70-30 insulin yesterday morning but did not take it this morning. Patient traveled by plane from [place] this morning and waited to go to the ED until she was back home. Patient denies any nausea, vomiting, chest pain, cough, abdominal pain, fever or chills. She does admit to excessive thirst and not eating for the past 2 days. Patient states this is never happened to her before and she has had Type 1 diabetes since she was 29 years old. Patient's vital signs during my exam were as follows, temp 99 degrees F, sinus tach 128BPM, respirations 28, blood pressure 192/90, pulse X 97% on room air. PE remarkable for Kussmaul breathing and olayinka mottling on bilateral upper and lowe r extremities. Labs in the ED were remarkable for WBC 13.4, serum bicarb 5, anion gap 32, BUN 17, creatinine 1.76, glucose 512, pH 6.9, pCO2 16, PO2 65, bicarb 3, O2 sat 86%, base excess -28.1, lactic acid 2.9. Chest x-ray negative for acute processes, CT of the abdomen and pelvis negative for acute process. Patient was started on insulin drip and given 2 L of normal saline in the ED. UA pending, COVID pending, U tox pending, sed rate pending, lupus panel pending, VARUN pending, Anca pending, 2nd set of VBG and BMP as well as acetaminophen, triglycerides, salicylate, calcium, magnesium, phosphorus, lipase all pending. Spoke with Dr. Rizzo, he agreed with assessment and plan, patient will be brought to the ICU for monitoring and treatment of her DKA. <Demetria Rose PA-C - Last Filed: 12/06/21 05:55> Review of Systems Review of Systems: Yes all other systems are reviewed and are negative <Demetria Rose PA-C - Last Filed: 12/06/21 05:55> [facility], LAT[facility] Past Medical History Medical History: Medical History (Updated 12/06/21 @ 10:21 by Jim Rizzo MD) Asthma Diabetes HLD (hyperlipidemia) Hypertension Nephrolithiasis <Demetria Rose PA-C - Last Filed: 12/06/21 05:55> Social History Social History: Social History Household Members: Spouse Housing: House Do you presently have visiting nurse or other home services: No Unable to assess alcohol history related to: Unknown Alcohol intake: never Patient Tobacco Use Status: Tobacco use Unknown Currently Displaying Signs/Symptoms of Drug Intoxication Withdrawal: No Advance Directives: No Advance Directives Information Provided: No Do you have thoughts of harming others: None Recently lost weight without trying: Unsure Patient : No : No Poor oral hygiene: No <Demetria Rose PA-C - Last Filed: 12/06/21 05:55> Meds Allergies/Adverse reactions: Allergies Allergy/AdvReac Type Severity Reaction Status Date / Time Penicillins [PENICILLINS] Allergy Severe RASH Verified 12/05/21 20:04 Sulfa (Sulfonamide Allergy Severe THROMBOCYTOPENIA, Verified 12/05/21 20:04 Antibiotics) severe [SULFA (SULFONAMIDE ANTIBIOTICS)] penicillin V Allergy Unknown rash Verified 12/05/21 20:04 <Demetria Rose PA-C - Last Filed: 12/06/21 05:55> Active Medications: Current Medications Dextrose (Dextrose 50 % 25 Gm/50 Ml Syringe) 25 gm IVPUSH Q30M PRN PRN Reason: Nursing Actions in Insulin Infusion Protocol Heparin Sodium (Porcine) (Heparin Sodium,Porcine 5,000 Unit/Ml Vial) 5,000 unit SUBCUT Q8H [facility] Insulin Human Regular (Myxredlin) 100 unit in 100 mls @ 0 mls/hr IVCONT .Q0M JUANITA; Protocol Last Admin: 12/05/21 22:13 Dose: 4 unit/hr, 4 mls/hr Documented by: Doxycycline Hyclate 100 mg/ (Sodium Chloride) 250 mls @ 166.67 mls/hr IV ONCE ONE Stop: 12/06/21 00:16 Vancomycin HCl 1,000 mg/ (Sodium Chloride) 270 mls @ 270 mls/hr IV ONCE ONE Stop: 12/05/21 23:46 Pharmacy Consult (Consult Rx Perform Med Rec) 1 each MISCELLANE ONCE PRN PRN Reason: Consult order <Demetria Rose PA-C - Last Filed: 12/06/21 05:55> Home medications: Home Medications Medication Instructions Recorded Confirmed Last Taken Type albuterol sulfate 90 mcg/actuation 2 puff INHALATION Q4H PRN 12/05/21 12/05/21 Unknown History aerosol inhaler amlodipine 5 mg tablet 1 tab PO DAILY 12/05/21 12/05/21 Unknown History atorvastatin 80 mg tablet 1 tab PO DAILY 12/05/21 12/05/21 Unknown History insulin NPH-regular 70-30 U-100 60 unit SUBCUT DAILY 12/05/21 Unknown History insulin 100 unit/mL subcutaneous pen insulin lispro 100 unit/mL 1 sliding scale dose SUBCUT 12/05/21 12/05/21 Unknown History subcutaneous pen (Humalog KwikPen USEASDIRECTD (U-100) Insulin) lisinopril 20 1 tab PO DAILY 12/05/21 12/05/21 Unknown History mg-hydrochlorothiazide 25 mg tablet metformin 1,000 mg tablet 1 tab PO BID 12/05/21 12/05/21 Unknown History sertraline 100 mg tablet 1 tab PO DAILY 12/05/21 12/05/21 Unknown History <Demetria Rose PA-C - Last Filed: 12/06/21 05:55> Physical Exam Vital Signs: Vital Signs: Last Vital Signs Temp 99 F 12/05/21 20:02 Pulse 122 H 12/05/21 21:26 Resp 28 H 12/05/21 21:26 BP 192/90 H 12/05/21 21:26 Pulse Ox 97 12/05/21 21:26 BMI result Body Mass Index 23.5 <STACIE Conner Last Filed: 12/06/21 05:55> Const: General: cooperative, acute distress respiratory (tachypneic) and tired appearing <Demetria Rose PA-C - Last Filed: 12/06/21 05:55> Nutritional Appearance: average body habitus <Demetria Rose PA-C - Last Filed: 12/06/21 05:55> Orientation/consciousness: patient oriented x3 <Demetria Rose PA-C - Last Filed: 12/06/21 05:55> HEENT: Head: Yes normal to inspection, Yes No palpable skull fracture present, Yes normocephalic and Yes atraumatic <Demetria Rose PA-C - Last Filed: 12/06/21 05:55> Face and sinus: Yes normal facial exam <Demetria Rose PA-C - Last Filed: 12/06/21 05:55> Eyes: General: appearance normal, both eyes and all related structures <Demetria Rose PA-C - Last Filed: 12/06/21 05:55> Pupils: Equal, round and reactive pupils present <Demetria Rose PA-C - Last Filed: 12/06/21 05:55> EOM: EOMs intact bilaterally <Demetria Rose PA-C - Last Filed: 12/06/21 05:55> Neck: Neck: Yes normal visual inspection, Yes full ROM, Yes trachea midline and Yes supple <Demetria Rose PA-C - Last Filed: 12/06/21 05:55> Resp: Effort & Inspection: tachypneic <Demetria Rose PA-C - Last Filed: 12/06/21 05:55> Auscultation: clear to auscultation bilaterally <Demetria Rose PA-C Keaton Row Last Filed: 12/06/21 05:55> Cardio: Jugular venous distension: no JVD <Demetria Rose PA-C Keaton Row Last Filed: 12/06/21 05:55> Rate: tachycardic <Demetria Rose PA-C Keaton Row Last Filed: 12/06/21 05:55> Rhythm: regular rhythm <Demetria Rose PA-C Keaton Row Last Filed: 12/06/21 05:55> Heart sounds: normal S1 and S2 <Demetria Rose PA-C - Last Filed: 12/06/21 05:55> GI: Inspection: Yes normal to inspection <Demetria Rose PA-C - Last Filed: 12/06/21 05:55> Palpation (GI): Soft to palpation and nontender <Demetria Rose PA-C - Last Filed: 12/06/21 05:55> Skin: General skin exam: mottling ( bilateral upper and lower extremities, olayinka pattern) <Demetria Rose PA-C - Last Filed: 12/06/21 05:55> Neuro: General: patient oriented x3 <Demetria Rose PA-C - Last Filed: 12/06/21 05:55> Cranial nerves: Yes Equal, round and reactive pupils present <Demetria Rose PA-C - Last Filed: 12/06/21 05:55> Cognition (Neuro): normal cognition <Demetria Rose PA-C - Last Filed: 12/06/21 05:55> Extrem: General: Yes full ROM and Yes no pedal edema <Demetria Rose PA-C - Last Filed: 12/06/21 05:55> Results Labs CBC and Chem 7: : 12/06/21 04:18 12/06/21 06:53 <Demetria Rose PA-C - Last Filed: 12/06/21 05:55> Labs: Laboratory Results - last 24 hr 12/05/21 12/05/21 12/05/21 19:49 20:00 20:00 MCV 93.0 MCH 29.9 MCHC 32.2 RDW 12.0 Plt Count 376 MPV 10.7 Immature Gran % (Auto) 2.8 H Neut % (Auto) 61.4 Lymph % (Auto) 27.8 Gila % (Auto) 7.2 Eos % (Auto) 0.1 Baso % (Auto) 0.7 Lymph # (Auto) 3.7 Gila # (Auto) 1.0 Eos # (Auto) 0.0 Baso # (Auto) 0.1 Abs Immat Gran (auto) 0.37 H Absolute Neuts (auto) 8.2 Absolute Nucleated RBC 0.000 Nucleated RBC % (auto) 0.0 VBG pH VBG pCO2 VBG pO2 VBG HCO3 VBG O2 Saturation VBG Base Excess Anion Gap 32 H Estim Creat Clear Calc 32.2 Estimated GFR 29 POC Glucose 462 H* Random Glucose 512 H* Osmolality Lactic Acid Calcium 10.5 H D Phosphorus Magnesium Total Bilirubin 0.4 AST 20 ALT 20 Alkaline Phosphatase 151 H D Troponin I High Sens Total Protein 7.9 D Albumin 4.5 Ethyl Alcohol Acetone, Qual COVID-19 ([facility]) COVID-19 [place] 12/05/21 12/05/21 12/05/21 20:00 20:00 20:07 MCV MCH MCHC RDW Plt Count MPV Immature Gran % (Auto) Neut % (Auto) Lymph % (Auto) Gila % (Auto) Eos % (Auto) Baso % (Auto) Lymph # (Auto) Gila # (Auto) Eos # (Auto) Baso # (Auto) Abs Immat Gran (auto) Absolute Neuts (auto) Absolute Nucleated RBC Nucleated RBC % (auto) VBG pH 6.90 L* VBG pCO2 16 VBG pO2 65 VBG HCO3 3 L VBG O2 Saturation 86.0 VBG Base Excess -28.1 Anion Gap Estim Creat Clear Calc Estimated GFR POC Glucose Random Glucose Osmolality Lactic Acid 2.9 H* Calcium Phosphorus Magnesium Total Bilirubin AST ALT Alkaline Phosphatase Troponin I High Sens 13.1 Total Protein Albumin Ethyl Alcohol Acetone, Qual COVID-19 ([facility]) COVID-Beep 12/05/21 12/05/21 12/05/21 22:04 22:08 22:29 MCV MCH MCHC RDW Plt Count MPV Immature Gran % (Auto) Neut % (Auto) Lymph % (Auto) Gila % (Auto) Eos % (Auto) Baso % (Auto) Lymph # (Auto) Gila # (Auto) Eos # (Auto) Baso # (Auto) Abs Immat Gran (auto) Absolute Neuts (auto) Absolute Nucleated RBC Nucleated RBC % (auto) VBG pH VBG pCO2 VBG pO2 VBG HCO3 VBG O2 Saturation VBG Base Excess Anion Gap Estim Creat Clear Calc Estimated GFR POC Glucose 398 H* Random Glucose Osmolality 325 H Lactic Acid Calcium Phosphorus Magnesium Total Bilirubin AST ALT Alkaline Phosphatase Troponin I High Sens Total Protein Albumin Ethyl Alcohol < 10 Acetone, Qual COVID-19 ([facility]) COVID-19 Jamalon 12/05/21 12/05/21 12/05/21 22:29 22:29 22:30 MCV MCH MCHC RDW Plt Count MPV Immature Gran % (Auto) Neut % (Auto) Lymph % (Auto) Gila % (Auto) Eos % (Auto) Baso % (Auto) Lymph # (Auto) Gila # (Auto) Eos # (Auto) Baso # (Auto) Abs Immat Gran (auto) Absolute Neuts (auto) Absolute Nucleated RBC Nucleated RBC % (auto) VBG pH VBG pCO2 VBG pO2 VBG HCO3 VBG O2 Saturation VBG Base Excess Anion Gap Estim Creat Clear Calc Estimated GFR POC Glucose Random Glucose Osmolality Lactic Acid Calcium 9.7 D Phosphorus 4.4 Magnesium 2.2 Total Bilirubin AST ALT Alkaline Phosphatase Troponin I High Sens Total Protein Albumin Ethyl Alcohol Acetone, Qual Large H COVID-19 ([facility]) Negative COVID-19 Clin Com See Note 12/05/21 22:33 MCV MCH MCHC RDW Plt Count MPV Immature Gran % (Auto) Neut % (Auto) Lymph % (Auto) Gila % (Auto) Eos % (Auto) Baso % (Auto) Lymph # (Auto) Gila # (Auto) Eos # (Auto) Baso # (Auto) Abs Immat Gran (auto) Absolute Neuts (auto) Absolute Nucleated RBC Nucleated RBC % (auto) VBG pH 6.88 L* VBG pCO2 19 VBG pO2 51 VBG HCO3 4 L VBG O2 Saturation 76.0 VBG Base Excess -28.2 Anion Gap Estim Creat Clear Calc Estimated GFR POC Glucose Random Glucose Osmolality Lactic Acid Calcium Phosphorus Magnesium Total Bilirubin AST ALT Alkaline Phosphatase Troponin I High Sens Total Protein Albumin Ethyl Alcohol Acetone, Qual COVID-19 ([facility]) COVID-19 Clin Com <Demetria Rose PA-C - Last Filed: 12/06/21 05:55> Imaging Radiologist's Impressions: Impressions Chest X-Ray 12/05/21 20:33 IMPRESSION: No interval change and no acute abnormalities CT/CT abdomen pelvis wo con IMPRESSION: ? Neither hydronephrosis nor nephrolithiasis. No acute abdominal or pelvic inflammatory or infectious processes. ? Sigmoid diverticulosis without evidence of diverticulitis. <STACIE Conner Last Filed: 12/06/21 05:55> Assessment and Plan (1) DKA (diabetic ketoacidosis): Status: Acute <Demetria Rose PA-C - Last Filed: 12/06/21 05:55> Continue IVF, insulin gtt, POC hourly, BMP & VBG Q3H and follow LA, replete electrolytes as needed, monitor breathing <Demetria Rose PA-C - Last Filed: 12/06/21 05:55> (2) High triglycerides: Status: Acute <Demetria Rose PA-C - Last Filed: 12/06/21 05:55> (3) BART (acute kidney injury): Status: Acute <Demetria Rose PA-C - Last Filed: 12/06/21 05:55> 2/2 dehydration, IVF and follow renal indices <Demetria Rose PA-C - Last Filed: 12/06/21 05:55> Plan History and physical reviewed and discussed with mid level and agree with the plan fluid management clearly needs to be more aggressive in addition to being tailored for electrolyte repletion and and a further exhaustive look into precipitating reason namely infection versus unstable hemodynamic issue etc. <Jim Rizzo MD - Last Filed: 12/06/21 10:52> Critical Care Time Critical Care Time (minutes): 60 <Demetria Rose PA-C - Last Filed: 12/06/21 05:55>
[2021-12-05 22:56] LABS: Acetaminophen LAB < 1 mcg/mL (<30); Blood Urea Nitrogen 18 mg/dL (9-16); Calcium 9.6 mg/dL (8.4-10.2); Carbon Dioxide < 5 mmol/L (22-29); Chloride 107 mmol/L (96-108); Creatinine Clr Calc Pharmacy 36.3; Estimated Glomerular Filt Rate 34; Glucose Random 420 mg/dL (60-115); Lipase 75 U/L (8-78); Potassium 3.8 mmol/L (3.3-5.1); Salicylate 6.2 mg/dL (15-30); Sodium 137 mmol/L (135-145); Triglycerides 576 mg/dL; ~Lactic Acid-LAB USE ONLY 2.9 mmol/L (0.5-2.0)
--- NOTE | 2021-12-05 22:58 | PC.NURSE ---
Dr Kern aware of pt's critical labs (glucose, lactic, and bicarb) This RN asks Dr Kern if he would like to give bicarb and potassium. Erlin states he will add orders.
--- NOTE | 2021-12-05 23:06 | PC.NURSE ---
this rn called pharmacy to verify the cefepime dosing as two orders are active; 1 for 1g and 1 for 2g. Per pharmacy, pharm to cancel 1g cefepime and keep 2g cefepime as ordered.
[2021-12-05 23:09] LABS: Glucose, Whole Blood 384 mg/dL (60-115)
[2021-12-05] MEDS: Sodium Bicarbonate 8.4% 50 MEQ/50 ML SYRINGE IVPUSH (23:18)
[2021-12-05] MEDS: Potassium Chloride/H20 10 MEQ/100 ML PIGGYBACK 100 MEQ IV (23:26)
[2021-12-05] MEDS: Heparin Sodium,Porcine 5,000 UNIT/ML VIAL 5000 UNIT SUBCUT (23:30)
[2021-12-05] MEDS: Lactated Ringers 1,000 ML 999 ML IV (23:35)
[2021-12-05 23:39] VITALS: BP 157/79; PULSE 122; RESP 24; O2SAT 100
[2021-12-05 23:49] LABS: Appearance Urine HAZY; Color Urine YELLOW; Glucose Urine UA 500 MG/DL (NEG); Leukocyte Esterase Urine NEG (NEG); Nitrite Urine NEG (NEG); PH 5.5 (5.0-8.0); Specific Gravity - Urine >= 1.030 (1.005-1.025); UACC Culture Trigger NO; Urine Blood 2+ (NEG); Urine Ketones >=80 MG/DL (NEG); Urine Protein 2+ MG/DL (NEG-TRACE)
[2021-12-05 23:58] LABS: Erythrocyte Sedimentation Rate 18 MM/HR (0-20)
[2021-12-05 23:58] LABS: Bacteria Urine TRACE /LPF; WBC Urine 0 /HPF (0-4)
[2021-12-06] VITALS (24 sets, daily range): BP systolic 95–166; BP diastolic 56–89; PULSE 97–121; RESP 15–28; TEMP 36.7–38.2; O2SAT 93–100; BMI 24.3
[2021-12-06 00:02] LABS: Amphetamine Screen Urine Not Detected (Not Detect); Barbiturates, Urine Not Detected (Not Detect); Benzodiazepines Screen Urine Not Detected (Not Detect); Cannabinoid Screen Urine Not Detected (Not Detect); Cocaine Screen Urine Not Detected (Not Detect); Fentanyl, urine Not Detected (Not Detect); Opiate Screen Urine Not Detected (Not Detect); Phencyclidine Screen Urine Not Detected (Not Detect)
[2021-12-06 00:23] LABS: Glucose, Whole Blood 310 mg/dL (60-115)
[2021-12-06 00:37] LABS: Reflex Lactate? 2 Y
[2021-12-06] MEDS: Doxycycline Hyclate 100 MG in 0.9 % Sodium Chloride 250 ML 166.67 MG IV (00:38)
[2021-12-06] MEDS: 0.9 % Sodium Chloride 1,000 ML 999 ML IV ×2 (00:39→01:39)
[2021-12-06 01:02] LABS: Glucose, Whole Blood 268 mg/dL (60-115)
[2021-12-06] MEDS: Sodium Bicarbonate 8.4% 50 MEQ/50 ML SYRINGE IVPUSH (01:11)
[2021-12-06 01:19] LABS: VBG Base Excess -22.8 mmol/L; VBG HCO3 4 mmol/L (22-26); VBG pCO2 14 mmHg; VBG pH 7.08 (7.32-7.43); VBG pO2 39 mmHg
[2021-12-06 01:33] LABS: Venous Blood Gas Refer to POC result
[2021-12-06] MEDS: Labetalol HCL 100 MG/20 ML VIAL 10 MG IVPUSH (01:41)
[2021-12-06 01:44] LABS: Anion Gap 24 (12-20); Blood Urea Nitrogen 17 mg/dL (9-16); Calcium 9.1 mg/dL (8.4-10.2); Carbon Dioxide 6 mmol/L (22-29); Chloride 111 mmol/L (96-108); Creatinine Clr Calc Pharmacy 45.7; Estimated Glomerular Filt Rate 44; Glucose Random 301 mg/dL (60-115); Potassium 3.3 mmol/L (3.3-5.1); Sodium 138 mmol/L (135-145); ~Lactic Acid-LAB USE ONLY 2.2 mmol/L (0.5-2.0)
[2021-12-06 01:58] LABS: Glucose, Whole Blood 217 mg/dL (60-115)
[2021-12-06] MEDS: Potassium Chloride/H20 10 MEQ/100 ML PIGGYBACK 100 MEQ IV ×8 (02:13→18:20)
[2021-12-06] MEDS: Dextrose 5 % and Lactated Ring 1,000 ML 999 ML IVCONT (02:20)
[2021-12-06 03:05] LABS: Glucose, Whole Blood 251 mg/dL (60-115)
[2021-12-06] MEDS: Dextrose 5 % and Lactated Ring 1,000 ML 125 ML IVCONT (03:44)
[2021-12-06 03:56] LABS: Glucose, Whole Blood 345 mg/dL (60-115)
[2021-12-06 04:26] LABS: VBG Base Excess -15.9 mmol/L; VBG HCO3 9 mmol/L (22-26); VBG pCO2 20 mmHg; VBG pH 7.23 (7.32-7.43); VBG pO2 32 mmHg
[2021-12-06 04:27] LABS: MANUAL DIFF FLAG NO
[2021-12-06 04:33] LABS: Basophils Percent Auto 0.5 % (0-2); Eosinophils Absolute Auto 0.1 X10*3/uL (0.0-0.4); Eosinophils Percent Auto 1.1 % (0-4); Hematocrit 48.2 % (37.0-47.0); Hemoglobin 16.4 g/dl (12.0-16.0); Imm Gran Abs Auto 0.11 X10*3/uL (0.00-0.03); Imm Gran Pct Auto 1.4 % (0.0-0.4); Mean Corpuscular Hemoglobin 29.9 pg (27.0-33.0); Mean Platelet Volume 10.1 fL (9.4-12.3); Monocytes Absolute Auto 0.7 X10*3/uL (0.1-1.2); Monocytes Percent Auto 8.7 % (2-11); Neutrophils Absolute Auto 5.1 x10*3/uL (2.0-8.3); Neutrophils Percent Auto 63.3 % (45-73); Platelet Count 262 X10*3/uL (160-400); Red Blood Count 5.48 X10*6/uL (4.20-5.50); Red Cell Distribution Width 11.8 % (11.0-16.0)
[2021-12-06 04:51] LABS: Venous Blood Gas Refer to POC result
[2021-12-06 04:59] LABS: Anion Gap 22 (12-20); Blood Urea Nitrogen 15 mg/dL (9-16); Calcium 8.8 mg/dL (8.4-10.2); Carbon Dioxide 9 mmol/L (22-29); Chloride 112 mmol/L (96-108); Creatinine Clr Calc Pharmacy 50.2; Estimated Glomerular Filt Rate 49; Glucose Random 329 mg/dL (60-115); Magnesium 1.5 mg/dL (1.6-2.6); Phosphorus 1.4 mg/dL (2.7-4.5); Potassium 3.1 mmol/L (3.3-5.1); Sodium 140 mmol/L (135-145)
[2021-12-06 05:33] LABS: Glucose, Whole Blood 289 mg/dL (60-115)
[2021-12-06] MEDS: ondansetron HCL 4 MG/2 ML VIAL IVPUSH (05:33)
[2021-12-06] MEDS: Potassium Phosphate/NS 15 MMOL/250 ML PLAST..BAG 62.5 MMOL IV ×3 (05:37→22:50)
[2021-12-06] MEDS: Magnesium Sulfate/D5W 1 GM/100 ML PIGGYBACK IV ×2 (05:37→16:16)
[2021-12-06 06:04] LABS: Glucose, Whole Blood 278 mg/dL (60-115)
--- NOTE | 2021-12-06 06:11 | PC.NURSE ---
upon intial contact time 0000 pt was alert and oriented, sinus tach, LS clear, no SOB, ABD soft non-tender. Mix placed at approximately 0030. Pt has had out put of dilute urine 400-600 an hour. Lower ext mottled with slight mottling on the upper ext. At approximately 0500 pt had an episode of N/V/D. It was noted mottling had improved and skin returned to normal. Pt remains alert and oriented with improvement in skin and urine is slowly becoming more concentrated. PT is on insulin drip for DKA protocol currently @ 5 units an hour.
--- NOTE | 2021-12-06 06:28 | ECG_ITS ---
Test Reason : cp Blood Pressure : / mmHG Vent. Rate : 108 BPM Atrial Rate : 108 BPM P-R Int : 244 ms QRS Dur : 066 ms QT Int : 338 ms P-R-T Axes : 053 023 219 degrees QTc Int : 452 ms Sinus tachycardia with 1st degree A-V block Possible Left atrial enlargement Septal infarct , age undetermined T wave abnormality, consider inferolateral ischemia Abnormal ECG When compared with ECG of 05-DEC-2021 19:52, VA interval has increased Inverted T waves have replaced nonspecific T wave abnormality in Inferior leads Inverted T waves have replaced nonspecific T wave abnormality in Lateral leads Referred By: Demetria Rose Electronically Signed By:Boogie Pickett
[2021-12-06 07:00] LABS: VBG Base Excess -10.2 mmol/L; VBG HCO3 12 mmol/L (22-26); VBG pCO2 21 mmHg; VBG pH 7.37 (7.32-7.43); VBG pO2 68 mmHg
[2021-12-06 07:02] LABS: Glucose, Whole Blood 271 mg/dL (60-115)
[2021-12-06 07:22] LABS: Lactic Acid 1.1 mmol/L (0.5-2.0)
[2021-12-06 07:38] LABS: Blood Urea Nitrogen 13 mg/dL (9-16); Calcium 8.3 mg/dL (8.4-10.2); Creatinine Clr Calc Pharmacy 57.3; Estimated Glomerular Filt Rate 57; Glucose Random 286 mg/dL (60-115)
[2021-12-06 07:47] LABS: Anion Gap 14 (12-20); Carbon Dioxide 12 mmol/L (22-29); Chloride 116 mmol/L (96-108); Potassium 2.8 mmol/L (3.3-5.1); Sodium 139 mmol/L (135-145)
[2021-12-06 07:50] LABS: Troponin-I High Sensitivity 57.4 ng/L (<3.5-17.0)
[2021-12-06 08:08] LABS: Glucose, Whole Blood 254 mg/dL (60-115)
[2021-12-06] MEDS: Heparin Sodium,Porcine 5,000 UNIT/ML VIAL 5000 UNIT SUBCUT ×3 (08:10→22:49)
[2021-12-06] MEDS: Sertraline HCL 100 MG TABLET PO (08:11)
[2021-12-06] MEDS: lisinopriL 20 MG TABLET PO (08:11)
[2021-12-06] MEDS: amLODIPine Besylate 5 MG TABLET PO (08:11)
[2021-12-06] MEDS: Atorvastatin Calcium 80 MG TABLET PO (08:11)
[2021-12-06 09:02] LABS: Glucose, Whole Blood 227 mg/dL (60-115)
[2021-12-06] MEDS: Insulin Regular/NS 100 UNIT/100 ML PLAST..BAG 6 UNIT IVCONT (09:42)
[2021-12-06 10:01] LABS: Glucose, Whole Blood 205 mg/dL (60-115)
--- NOTE | 2021-12-06 10:15 | P.PNCC_ITS ---
Subjective Subjective Date of Service: 12/06/21 Interval History: 61-year-old female type 2 diabetic presents with profound diabetic ketoacidosis without an apparent precipitating reason and pH of 6.9 and serum bicarb is low is 3 and obviously the nope pretty profound hypophosphatemia hypokalemia as expected but no evidence of pancreatitis no bleed no acute cardiovascular issue no apparent infectious source and no evidence of apparent medication contribution either She is insulin dependent and also takes metformin and she is a hyperlipidemic and hypertensive by history as well with no history of cardiac issues Bedside echo reveals normal LV in our V function without wall motion abnormality despite the EKG that shows normal sinus rhythm and diffuse nonspecific ST-T changes but the potentially some pro a progression of T-wave inversion noticed almost globally but again troponins negative and there is no wall motion abnormality so most likely to be metabolic in origin Also hypomagnesemic Currently awake and able to talk with gradually repairing negative base excess as well as pH and the secondary symptoms of abdominal discomfort etc. oral subsiding Critical Care Time (minutes): 60 Physical Exam Vital Signs: Vital Signs: Last Vital Signs Temp 99.7 F 12/06/21 09:00 Pulse 109 H 12/06/21 09:00 Resp 15 12/06/21 09:00 BP 157/83 H 12/06/21 09:00 Pulse Ox 99 12/06/21 09:00 BMI result Body Mass Index 24.3 Good cognitive function and nonfocal neurologically Bedside echo with normal cardiac function and normal on IVC diameter with good inspiratory collapse so she is euvolemic Chest is clear to chest x-ray and exam Abdomen benign no again a megaly Skin intact with no edema no acrocyanosis Objective Data Labs CBC & Chem 7: 12/06/21 04:18 12/06/21 06:53 Labs: Laboratory Results - last 24 hr 12/05/21 12/05/21 12/05/21 19:49 20:00 20:00 WBC 13.4 H RBC 5.82 H Hgb 17.4 H Hct 54.1 H MCV 93.0 MCH 29.9 MCHC 32.2 RDW 12.0 Plt Count 376 MPV 10.7 Immature Gran % (Auto) 2.8 H Neut % (Auto) 61.4 Lymph % (Auto) 27.8 Patrick % (Auto) 7.2 Eos % (Auto) 0.1 Baso % (Auto) 0.7 Lymph # (Auto) 3.7 Patrick # (Auto) 1.0 Eos # (Auto) 0.0 Baso # (Auto) 0.1 Abs Immat Gran (auto) 0.37 H Absolute Neuts (auto) 8.2 Absolute Nucleated RBC 0.000 Nucleated RBC % (auto) 0.0 ESR VBG pH VBG pCO2 VBG pO2 VBG HCO3 VBG O2 Saturation VBG Base Excess Sodium 134 L Potassium 3.8 Chloride 101 Carbon Dioxide 5 L* D Anion Gap 32 H BUN 17 H Creatinine 1.76 H Estim Creat Clear Calc 32.2 Estimated GFR 29 POC Glucose 462 H* Random Glucose 512 H* Osmolality Lactic Acid Lactic Acid F/U @ 2Hr Lactic Acid F/U @ 4Hr Calcium 10.5 H D Phosphorus Magnesium Total Bilirubin 0.4 AST 20 ALT 20 Alkaline Phosphatase 151 H D Troponin I High Sens Total Protein 7.9 D Albumin 4.5 Triglycerides Lipase Urine Color Urine Appearance Urine pH Ur Specific [place] Urine Protein Urine Glucose (UA) Urine Ketones Urine Blood Urine Nitrite Ur Leukocyte Esterase Urine RBC Urine WBC Ur Squamous Epith Cells Urine Bacteria Granular Casts Salicylates Urine Opiates Screen Urine Fentanyl Screen Acetaminophen Ur Barbiturates Screen Ur Phencyclidine Scrn Ur Amphetamines Screen U Benzodiazepines Scrn Urine Cocaine Screen U Marijuana (THC) Screen Ethyl Alcohol Acetone, Qual COVID-19 ([facility]) COVID-19 Clin Com 12/05/21 12/05/21 12/05/21 20:00 20:00 20:00 WBC RBC Hgb Hct MCV MCH MCHC RDW Plt Count MPV Immature Gran % (Auto) Neut % (Auto) Lymph % (Auto) Patrick % (Auto) Eos % (Auto) Baso % (Auto) Lymph # (Auto) Patrick # (Auto) Eos # (Auto) Baso # (Auto) Abs Immat Gran (auto) Absolute Neuts (auto) Absolute Nucleated RBC Nucleated RBC % (auto) ESR 18 VBG pH VBG pCO2 VBG pO2 VBG HCO3 VBG O2 Saturation VBG Base Excess Sodium Potassium Chloride Carbon Dioxide Anion Gap BUN Creatinine Estim Creat Clear Calc Estimated GFR POC Glucose Random Glucose Osmolality Lactic Acid 2.9 H* Lactic Acid F/U @ 2Hr Lactic Acid F/U @ 4Hr Calcium Phosphorus Magnesium Total Bilirubin AST ALT Alkaline Phosphatase Troponin I High Sens 13.1 Total Protein Albumin Triglycerides Lipase Urine Color Urine Appearance Urine pH Ur Specific [place] Urine Protein Urine Glucose (UA) Urine Ketones Urine Blood Urine Nitrite Ur Leukocyte Esterase Urine RBC Urine WBC Ur Squamous Epith Cells Urine Bacteria Granular Casts Salicylates Urine Opiates Screen Urine Fentanyl Screen Acetaminophen Ur Barbiturates Screen Ur Phencyclidine Scrn Ur Amphetamines Screen U Benzodiazepines Scrn Urine Cocaine Screen U Marijuana (THC) Screen Ethyl Alcohol Acetone, Qual COVID-19 ([facility]) COVID-19 [facility] Com 12/05/21 12/05/21 12/05/21 20:07 22:04 22:08 WBC RBC Hgb Hct MCV MCH MCHC RDW Plt Count MPV Immature Gran % (Auto) Neut % (Auto) Lymph % (Auto) Patrick % (Auto) Eos % (Auto) Baso % (Auto) Lymph # (Auto) Patrick # (Auto) Eos # (Auto) Baso # (Auto) Abs Immat Gran (auto) Absolute Neuts (auto) Absolute Nucleated RBC Nucleated RBC % (auto) ESR VBG pH 6.90 L* VBG pCO2 16 VBG pO2 65 VBG HCO3 3 L VBG O2 Saturation 86.0 VBG Base Excess -28.1 Sodium Potassium Chloride Carbon Dioxide Anion Gap BUN Creatinine Estim Creat Clear Calc Estimated GFR POC Glucose 398 H* Random Glucose Osmolality Lactic Acid Lactic Acid F/U @ 2Hr Lactic Acid F/U @ 4Hr Calcium Phosphorus Magnesium Total Bilirubin AST ALT Alkaline Phosphatase Troponin I High Sens Total Protein Albumin Triglycerides Lipase Urine Color Urine Appearance Urine pH Ur Specific [place] Urine Protein Urine Glucose (UA) Urine Ketones Urine Blood Urine Nitrite Ur Leukocyte Esterase Urine RBC Urine WBC Ur Squamous Epith Cells Urine Bacteria Granular Casts Salicylates Urine Opiates Screen Urine Fentanyl Screen Acetaminophen Ur Barbiturates Screen Ur Phencyclidine Scrn Ur Amphetamines Screen U Benzodiazepines Scrn Urine Cocaine Screen U Marijuana (THC) Screen Ethyl Alcohol < 10 Acetone, Qual COVID-19 ([facility]) COVID-19 Clin Com 12/05/21 12/05/21 12/05/21 22:29 22:29 22:29 WBC RBC Hgb Hct MCV MCH MCHC RDW Plt Count MPV Immature Gran % (Auto) Neut % (Auto) Lymph % (Auto) Patrick % (Auto) Eos % (Auto) Baso % (Auto) Lymph # (Auto) Patrick # (Auto) Eos # (Auto) Baso # (Auto) Abs Immat Gran (auto) Absolute Neuts (auto) Absolute Nucleated RBC Nucleated RBC % (auto) ESR VBG pH VBG pCO2 VBG pO2 VBG HCO3 VBG O2 Saturation VBG Base Excess Sodium Potassium Chloride Carbon Dioxide Anion Gap BUN Creatinine Estim Creat Clear Calc Estimated GFR POC Glucose Random Glucose Osmolality 325 H Lactic Acid Lactic Acid F/U @ 2Hr Lactic Acid F/U @ 4Hr Calcium Phosphorus Magnesium Total Bilirubin AST ALT Alkaline Phosphatase Troponin I High Sens Total Protein Albumin Triglycerides 576 Lipase 75 Urine Color Urine Appearance Urine pH Ur Specific [place] Urine Protein Urine Glucose (UA) Urine Ketones Urine Blood Urine Nitrite Ur Leukocyte Esterase Urine RBC Urine WBC Ur Squamous Epith Cells Urine Bacteria Granular Casts Salicylates 6.2 L Urine Opiates Screen Urine Fentanyl Screen Acetaminophen < 1 Ur Barbiturates Screen Ur Phencyclidine Scrn Ur Amphetamines Screen U Benzodiazepines Scrn Urine Cocaine Screen U Marijuana (THC) Screen Ethyl Alcohol Acetone, Qual Large H COVID-19 ([facility]) COVID-19 Clin [facility] 12/05/21 12/05/21 12/05/21 22:29 22:29 22:29 WBC RBC Hgb Hct MCV MCH MCHC RDW Plt Count MPV Immature Gran % (Auto) Neut % (Auto) Lymph % (Auto) Patrick % (Auto) Eos % (Auto) Baso % (Auto) Lymph # (Auto) Patrick # (Auto) Eos # (Auto) Baso # (Auto) Abs Immat Gran (auto) Absolute Neuts (auto) Absolute Nucleated RBC Nucleated RBC % (auto) ESR VBG pH VBG pCO2 VBG pO2 VBG HCO3 VBG O2 Saturation VBG Base Excess Sodium 137 Potassium 3.8 Chloride 107 Carbon Dioxide < 5 L* Anion Gap TNP BUN 18 H Creatinine 1.56 H Estim Creat Clear Calc 36.3 Estimated GFR 34 POC Glucose Random Glucose 420 H* Osmolality Lactic Acid Lactic Acid F/U @ 2Hr 2.9 H* Lactic Acid F/U @ 4Hr Calcium 9.6 D Phosphorus Magnesium Total Bilirubin AST ALT Alkaline Phosphatase Troponin I High Sens Total Protein Albumin Triglycerides Lipase Urine Color Urine Appearance Urine pH Ur Specific [place] Urine Protein Urine Glucose (UA) Urine Ketones Urine Blood Urine Nitrite Ur Leukocyte Esterase Urine RBC Urine WBC Ur Squamous Epith Cells Urine Bacteria Granular Casts Salicylates Urine Opiates Screen Urine Fentanyl Screen Acetaminophen Ur Barbiturates Screen Ur Phencyclidine Scrn Ur Amphetamines Screen U Benzodiazepines Scrn Urine Cocaine Screen U Marijuana (THC) Screen Ethyl Alcohol Acetone, Qual COVID-19 ([facility]) Negative COVID-19 [facility] Com See Note 12/05/21 12/05/21 12/05/21 22:30 22:33 23:05 WBC RBC Hgb Hct MCV MCH MCHC RDW Plt Count MPV Immature Gran % (Auto) Neut % (Auto) Lymph % (Auto) Patrick % (Auto) Eos % (Auto) Baso % (Auto) Lymph # (Auto) Patrick # (Auto) Eos # (Auto) Baso # (Auto) Abs Immat Gran (auto) Absolute Neuts (auto) Absolute Nucleated RBC Nucleated RBC % (auto) ESR VBG pH 6.88 L* VBG pCO2 19 VBG pO2 51 VBG HCO3 4 L VBG O2 Saturation 76.0 VBG Base Excess -28.2 Sodium Potassium Chloride Carbon Dioxide Anion Gap BUN Creatinine Estim Creat Clear Calc Estimated GFR POC Glucose 384 H* Random Glucose Osmolality Lactic Acid Lactic Acid F/U @ 2Hr Lactic Acid F/U @ 4Hr Calcium 9.7 Phosphorus 4.4 Magnesium 2.2 Total Bilirubin AST ALT Alkaline Phosphatase Troponin I High Sens Total Protein Albumin Triglycerides Lipase Urine Color Urine Appearance Urine pH Ur Specific [place] Urine Protein Urine Glucose (UA) Urine Ketones Urine Blood Urine Nitrite Ur Leukocyte Esterase Urine RBC Urine WBC Ur Squamous Epith Cells Urine Bacteria Granular Casts Salicylates Urine Opiates Screen Urine Fentanyl Screen Acetaminophen Ur Barbiturates Screen Ur Phencyclidine Scrn Ur Amphetamines Screen U Benzodiazepines Scrn Urine Cocaine Screen U Marijuana (THC) Screen Ethyl Alcohol Acetone, Qual COVID-19 ([facility]) COVID-19 [facility] 12/05/21 12/05/21 12/06/21 23:42 23:42 00:19 WBC RBC Hgb Hct MCV MCH MCHC RDW Plt Count MPV Immature Gran % (Auto) Neut % (Auto) Lymph % (Auto) Patrick % (Auto) Eos % (Auto) Baso % (Auto) Lymph # (Auto) Patrick # (Auto) Eos # (Auto) Baso # (Auto) Abs Immat Gran (auto) Absolute Neuts (auto) Absolute Nucleated RBC Nucleated RBC % (auto) ESR VBG pH VBG pCO2 VBG pO2 VBG HCO3 VBG O2 Saturation VBG Base Excess Sodium Potassium Chloride Carbon Dioxide Anion Gap BUN Creatinine Estim Creat Clear Calc Estimated GFR POC Glucose 310 H Random Glucose Osmolality Lactic Acid Lactic Acid F/U @ 2Hr Lactic Acid F/U @ 4Hr Calcium Phosphorus Magnesium Total Bilirubin AST ALT Alkaline Phosphatase Troponin I High Sens Total Protein Albumin Triglycerides Lipase Urine Color YELLOW Urine Appearance HAZY Urine pH 5.5 Ur Specific [place] >= 1.030 H Urine Protein 2+ H Urine Glucose (UA) 500 H Urine Ketones >=80 Urine Blood 2+ H Urine Nitrite NEG Ur Leukocyte Esterase NEG Urine RBC 10-14 H Urine WBC 0 Ur Squamous Epith Cells NONE Urine Bacteria TRACE Granular Casts 1-4 Salicylates Urine Opiates Screen Not Detected Urine Fentanyl Screen Not Detected Acetaminophen Ur Barbiturates Screen Not Detected Ur Phencyclidine Scrn Not Detected Ur Amphetamines Screen Not Detected U Benzodiazepines Scrn Not Detected Urine Cocaine Screen Not Detected U Marijuana (THC) Screen Not Detected Ethyl Alcohol Acetone, Qual COVID-19 ([facility]) COVID-19 [facility] Com 12/06/21 12/06/21 12/06/21 00:53 01:08 01:21 WBC RBC Hgb Hct MCV MCH MCHC RDW Plt Count MPV Immature Gran % (Auto) Neut % (Auto) Lymph % (Auto) Patrick % (Auto) Eos % (Auto) Baso % (Auto) Lymph # (Auto) Patrick # (Auto) Eos # (Auto) Baso # (Auto) Abs Immat Gran (auto) Absolute Neuts (auto) Absolute Nucleated RBC Nucleated RBC % (auto) ESR VBG pH 7.08 L* VBG pCO2 14 VBG pO2 39 VBG HCO3 4 L VBG O2 Saturation 74.0 VBG Base Excess -22.8 Sodium Potassium Chloride Carbon Dioxide Anion Gap BUN Creatinine Estim Creat Clear Calc Estimated GFR POC Glucose 268 H Random Glucose Osmolality Lactic Acid Lactic Acid F/U @ 2Hr Lactic Acid F/U @ 4Hr 2.2 H* Calcium Phosphorus Magnesium Total Bilirubin AST ALT Alkaline Phosphatase Troponin I High Sens Total Protein Albumin Triglycerides Lipase Urine Color Urine Appearance Urine pH Ur Specific [place] Urine Protein Urine Glucose (UA) Urine Ketones Urine Blood Urine Nitrite Ur Leukocyte Esterase Urine RBC Urine WBC Ur Squamous Epith Cells Urine Bacteria Granular Casts Salicylates Urine Opiates Screen Urine Fentanyl Screen Acetaminophen Ur Barbiturates Screen Ur Phencyclidine Scrn Ur Amphetamines Screen U Benzodiazepines Scrn Urine Cocaine Screen U Marijuana (THC) Screen Ethyl Alcohol Acetone, Qual COVID-19 ([facility]) COVID-19 Clin Com 12/06/21 12/06/21 12/06/21 01:21 01:54 03:00 WBC RBC Hgb Hct MCV MCH MCHC RDW Plt Count MPV Immature Gran % (Auto) Neut % (Auto) Lymph % (Auto) Patrick % (Auto) Eos % (Auto) Baso % (Auto) Lymph # (Auto) Patrick # (Auto) Eos # (Auto) Baso # (Auto) Abs Immat Gran (auto) Absolute Neuts (auto) Absolute Nucleated RBC Nucleated RBC % (auto) ESR VBG pH VBG pCO2 VBG pO2 VBG HCO3 VBG O2 Saturation VBG Base Excess Sodium 138 Potassium 3.3 Chloride 111 H Carbon Dioxide 6 L* D Anion Gap 24 H BUN 17 H Creatinine 1.24 Estim Creat Clear Calc 45.7 Estimated GFR 44 POC Glucose 217 H 251 H Random Glucose 301 H Osmolality Lactic Acid Lactic Acid F/U @ 2Hr Lactic Acid F/U @ 4Hr Calcium 9.1 D Phosphorus Magnesium Total Bilirubin AST ALT Alkaline Phosphatase Troponin I High Sens Total Protein Albumin Triglycerides Lipase Urine Color Urine Appearance Urine pH Ur Specific [place] Urine Protein Urine Glucose (UA) Urine Ketones Urine Blood Urine Nitrite Ur Leukocyte Esterase Urine RBC Urine WBC Ur Squamous Epith Cells Urine Bacteria Granular Casts Salicylates Urine Opiates Screen Urine Fentanyl Screen Acetaminophen Ur Barbiturates Screen Ur Phencyclidine Scrn Ur Amphetamines Screen U Benzodiazepines Scrn Urine Cocaine Screen U Marijuana (THC) Screen Ethyl Alcohol Acetone, Qual COVID-19 ([facility]) COVID-19 Clin Com 12/06/21 12/06/21 12/06/21 03:52 04:18 04:18 WBC 8.0 RBC 5.48 Hgb 16.4 H Hct 48.2 H MCV 88.0 D MCH 29.9 MCHC 34.0 RDW 11.8 Plt Count 262 D MPV 10.1 Immature Gran % (Auto) 1.4 H Neut % (Auto) 63.3 Lymph % (Auto) 25.0 Patrick % (Auto) 8.7 Eos % (Auto) 1.1 Baso % (Auto) 0.5 Lymph # (Auto) 2.0 Patrick # (Auto) 0.7 Eos # (Auto) 0.1 Baso # (Auto) 0.0 Abs Immat Gran (auto) 0.11 H Absolute Neuts (auto) 5.1 Absolute Nucleated RBC 0.000 Nucleated RBC % (auto) 0.0 ESR VBG pH VBG pCO2 VBG pO2 VBG HCO3 VBG O2 Saturation VBG Base Excess Sodium 140 Potassium 3.1 L Chloride 112 H Carbon Dioxide 9 L* D Anion Gap 22 H BUN 15 Creatinine 1.13 Estim Creat Clear Calc 50.2 Estimated GFR 49 POC Glucose 345 H Random Glucose 329 H Osmolality Lactic Acid Lactic Acid F/U @ 2Hr Lactic Acid F/U @ 4Hr Calcium 8.8 Phosphorus 1.4 L Magnesium 1.5 L Total Bilirubin AST ALT Alkaline Phosphatase Troponin I High Sens Total Protein Albumin Triglycerides Lipase Urine Color Urine Appearance Urine pH Ur Specific [place] Urine Protein Urine Glucose (UA) Urine Ketones Urine Blood Urine Nitrite Ur Leukocyte Esterase Urine RBC Urine WBC Ur Squamous Epith Cells Urine Bacteria Granular Casts Salicylates Urine Opiates Screen Urine Fentanyl Screen Acetaminophen Ur Barbiturates Screen Ur Phencyclidine Scrn Ur Amphetamines Screen U Benzodiazepines Scrn Urine Cocaine Screen U Marijuana (THC) Screen Ethyl Alcohol Acetone, Qual COVID-19 ([facility]) COVID-19 Clin Com 12/06/21 12/06/21 12/06/21 04:18 04:57 06:00 WBC RBC Hgb Hct MCV MCH MCHC RDW Plt Count MPV Immature Gran % (Auto) Neut % (Auto) Lymph % (Auto) Patrick % (Auto) Eos % (Auto) Baso % (Auto) Lymph # (Auto) Patrick # (Auto) Eos # (Auto) Baso # (Auto) Abs Immat Gran (auto) Absolute Neuts (auto) Absolute Nucleated RBC Nucleated RBC % (auto) ESR VBG pH 7.23 L VBG pCO2 20 VBG pO2 32 VBG HCO3 9 L VBG O2 Saturation 64.0 VBG Base Excess -15.9 Sodium Potassium Chloride Carbon Dioxide Anion Gap BUN Creatinine Estim Creat Clear Calc Estimated GFR POC Glucose 289 H 278 H Random Glucose Osmolality Lactic Acid Lactic Acid F/U @ 2Hr Lactic Acid F/U @ 4Hr Calcium Phosphorus Magnesium Total Bilirubin AST ALT Alkaline Phosphatase Troponin I High Sens Total Protein Albumin Triglycerides Lipase Urine Color Urine Appearance Urine pH Ur Specific [place] Urine Protein Urine Glucose (UA) Urine Ketones Urine Blood Urine Nitrite Ur Leukocyte Esterase Urine RBC Urine WBC Ur Squamous Epith Cells Urine Bacteria Granular Casts Salicylates Urine Opiates Screen Urine Fentanyl Screen Acetaminophen Ur Barbiturates Screen Ur Phencyclidine Scrn Ur Amphetamines Screen U Benzodiazepines Scrn Urine Cocaine Screen U Marijuana (THC) Screen Ethyl Alcohol Acetone, Qual COVID-19 ([facility]) COVID-19 [facility] 12/06/21 12/06/21 12/06/21 06:51 06:53 06:53 WBC RBC Hgb Hct MCV MCH MCHC RDW Plt Count MPV Immature Gran % (Auto) Neut % (Auto) Lymph % (Auto) Patrick % (Auto) Eos % (Auto) Baso % (Auto) Lymph # (Auto) Patrick # (Auto) Eos # (Auto) Baso # (Auto) Abs Immat Gran (auto) Absolute Neuts (auto) Absolute Nucleated RBC Nucleated RBC % (auto) ESR VBG pH 7.37 VBG pCO2 21 VBG pO2 68 VBG HCO3 12 L VBG O2 Saturation 96.0 VBG Base Excess -10.2 Sodium 139 Potassium 2.8 L Chloride 116 H Carbon Dioxide 12 L Anion Gap 14 BUN 13 Creatinine 0.99 Estim Creat Clear Calc 57.3 Estimated GFR 57 POC Glucose Random Glucose 286 H Osmolality Lactic Acid 1.1 Lactic Acid F/U @ 2Hr Lactic Acid F/U @ 4Hr Calcium 8.3 L Phosphorus Magnesium Total Bilirubin AST ALT Alkaline Phosphatase Troponin I High Sens Total Protein Albumin Triglycerides Lipase Urine Color Urine Appearance Urine pH Ur Specific [place] Urine Protein Urine Glucose (UA) Urine Ketones Urine Blood Urine Nitrite Ur Leukocyte Esterase Urine RBC Urine WBC Ur Squamous Epith Cells Urine Bacteria Granular Casts Salicylates Urine Opiates Screen Urine Fentanyl Screen Acetaminophen Ur Barbiturates Screen Ur Phencyclidine Scrn Ur Amphetamines Screen U Benzodiazepines Scrn Urine Cocaine Screen U Marijuana (THC) Screen Ethyl Alcohol Acetone, Qual COVID-19 ([facility]) COVID-19 [facility] 12/06/21 12/06/21 12/06/21 06:53 06:57 08:04 WBC RBC Hgb Hct MCV MCH MCHC RDW Plt Count MPV Immature Gran % (Auto) Neut % (Auto) Lymph % (Auto) Patrick % (Auto) Eos % (Auto) Baso % (Auto) Lymph # (Auto) Patrick # (Auto) Eos # (Auto) Baso # (Auto) Abs Immat Gran (auto) Absolute Neuts (auto) Absolute Nucleated RBC Nucleated RBC % (auto) ESR VBG pH VBG pCO2 VBG pO2 VBG HCO3 VBG O2 Saturation VBG Base Excess Sodium Potassium Chloride Carbon Dioxide Anion Gap BUN Creatinine Estim Creat Clear Calc Estimated GFR POC Glucose 271 H 254 H Random Glucose Osmolality Lactic Acid Lactic Acid F/U @ 2Hr Lactic Acid F/U @ 4Hr Calcium Phosphorus Magnesium Total Bilirubin AST ALT Alkaline Phosphatase Troponin I High Sens 57.4 H* D Total Protein Albumin Triglycerides Lipase Urine Color Urine Appearance Urine pH Ur Specific [place] Urine Protein Urine Glucose (UA) Urine Ketones Urine Blood Urine Nitrite Ur Leukocyte Esterase Urine RBC Urine WBC Ur Squamous Epith Cells Urine Bacteria Granular Casts Salicylates Urine Opiates Screen Urine Fentanyl Screen Acetaminophen Ur Barbiturates Screen Ur Phencyclidine Scrn Ur Amphetamines Screen U Benzodiazepines Scrn Urine Cocaine Screen U Marijuana (THC) Screen Ethyl Alcohol Acetone, Qual COVID-19 ([facility]) [facility]-[employer] 12/06/21 12/06/21 08:56 09:56 WBC RBC Hgb Hct MCV MCH MCHC RDW Plt Count MPV Immature Gran % (Auto) Neut % (Auto) Lymph % (Auto) Patrick % (Auto) Eos % (Auto) Baso % (Auto) Lymph # (Auto) Patrick # (Auto) Eos # (Auto) Baso # (Auto) Abs Immat Gran (auto) Absolute Neuts (auto) Absolute Nucleated RBC Nucleated RBC % (auto) ESR VBG pH VBG pCO2 VBG pO2 VBG HCO3 VBG O2 Saturation VBG Base Excess Sodium Potassium Chloride Carbon Dioxide Anion Gap BUN Creatinine Estim Creat Clear Calc Estimated GFR POC Glucose 227 H 205 H Random Glucose Osmolality Lactic Acid Lactic Acid F/U @ 2Hr Lactic Acid F/U @ 4Hr Calcium Phosphorus Magnesium Total Bilirubin AST ALT Alkaline Phosphatase Troponin I High Sens Total Protein Albumin Triglycerides Lipase Urine Color Urine Appearance Urine pH Ur Specific [place] Urine Protein Urine Glucose (UA) Urine Ketones Urine Blood Urine Nitrite Ur Leukocyte Esterase Urine RBC Urine WBC Ur Squamous Epith Cells Urine Bacteria Granular Casts Salicylates Urine Opiates Screen Urine Fentanyl Screen Acetaminophen Ur Barbiturates Screen Ur Phencyclidine Scrn Ur Amphetamines Screen U Benzodiazepines Scrn Urine Cocaine Screen U Marijuana (THC) Screen Ethyl Alcohol Acetone, Qual COVID-19 ([facility]) COVID-19 [facility] Progress Note: A&P Assessment and plan (1) Hypokalemia with shifts of fluid from extracellular to intracellular space: Status: Acute (2) Hypomagnesemia syndrome: Status: Acute (3) Hypophosphatemia: Status: Acute (4) BART (acute kidney injury): Status: Acute (5) High triglycerides: Status: Acute (6) DKA (diabetic ketoacidosis): Status: Acute Plan So the plan at this point is to change fluid to a lower chloride level from Ringer's lactate half normal with potassium repletion and separately magnesium and phosphorus repletion continue IV insulin Quality Stroke Does the patient have a stroke diagnosis?: No VTE Prior VTE?: No VTE Risk Level:: Medical - low VTE Device Contraindication: N/A - Device Ordered VTE Drug Contraindication: N/A - Med Ordered
[2021-12-06] MEDS: KCl 40 mEq in 5% Dex/0.45% Sod 40 MEQ/1,000 ML IV.SOLN 100 MEQ IVCONT ×2 (10:46→19:43)
[2021-12-06 11:07] LABS: Anion Gap 12 (12-20); Blood Urea Nitrogen 11 mg/dL (9-16); Calcium 8.4 mg/dL (8.4-10.2); Carbon Dioxide 14 mmol/L (22-29); Chloride 117 mmol/L (96-108); Creatinine Clr Calc Pharmacy 59.1; Estimated Glomerular Filt Rate 59; Glucose Random 226 mg/dL (60-115); Potassium 2.7 mmol/L (3.3-5.1); Sodium 140 mmol/L (135-145)
[2021-12-06 11:07] LABS: Glucose, Whole Blood 223 mg/dL (60-115)
--- NOTE | 2021-12-06 11:52 | HE.PHANOTE ---
RE Insulin Called [facility]. Patient has never filled any insulin with them, and the refill history suggests poor adherence. Spoke to patient in the ICU this AM. She endorses sliding scale insulin and 70/30 mixed insulin @ 60 units a day, but admits she has not taken it in a while. She could have been buying them OTC (hence no records), but patient is adament she has a prescription.
[2021-12-06 12:04] LABS: Glucose, Whole Blood 185 mg/dL (60-115)
[2021-12-06 13:00] LABS: Glucose, Whole Blood 194 mg/dL (60-115)
[2021-12-06 13:25] LABS: Venous Blood Gas Refer to POC result
--- NOTE | 2021-12-06 13:26 | MHC.CM.PN ---
Met with pt to review d/c planning: pt resides alone, is independent with all care needs and has no services: Pt has working diabetic equipment, drives and will call her son for transportation home. Vax x 3 with Jese
[2021-12-06 13:58] LABS: Anion Gap 12 (12-20); Blood Urea Nitrogen 11 mg/dL (9-16); Calcium 8.7 mg/dL (8.4-10.2); Carbon Dioxide 15 mmol/L (22-29); Chloride 117 mmol/L (96-108); Creatinine Clr Calc Pharmacy 63.7; Estimated Glomerular Filt Rate > 60; Glucose Random 198 mg/dL (60-115); Potassium 2.8 mmol/L (3.3-5.1); Sodium 141 mmol/L (135-145)
[2021-12-06 14:14] LABS: Glucose, Whole Blood 158 mg/dL (60-115)
[2021-12-06 15:04] LABS: Glucose, Whole Blood 146 mg/dL (60-115)
[2021-12-06] MEDS: Potassium Chloride Packet 20 MEQ PACKET 40 MEQ PO (15:05)
[2021-12-06 15:33] LABS: Venous Blood Gas Refer to POC result
[2021-12-06 15:33] LABS: Venous Blood Gas Refer to POC result
[2021-12-06 15:52] LABS: Magnesium 1.6 mg/dL (1.6-2.6)
[2021-12-06 16:04] LABS: VBG Base Excess -10.7 mmol/L; VBG HCO3 12 mmol/L (22-26); VBG pCO2 20 mmHg; VBG pH 7.36 (7.32-7.43); VBG pO2 59 mmHg
[2021-12-06 16:04] LABS: Glucose, Whole Blood 146 mg/dL (60-115)
[2021-12-06 16:06] LABS: VBG Base Excess -10.6 mmol/L; VBG HCO3 11 mmol/L (22-26); VBG pCO2 19 mmHg; VBG pH 7.38 (7.32-7.43); VBG pO2 51 mmHg
[2021-12-06 17:06] LABS: Glucose, Whole Blood 165 mg/dL (60-115)
[2021-12-06 18:02] LABS: Glucose, Whole Blood 147 mg/dL (60-115)
[2021-12-06 18:06] LABS: VBG HCO3 12 mmol/L (22-26); VBG pCO2 19 mmHg; VBG pO2 57 mmHg
[2021-12-06 18:39] LABS: Anion Gap 13 (12-20); Blood Urea Nitrogen 9 mg/dL (9-16); Calcium 8.8 mg/dL (8.4-10.2); Carbon Dioxide 15 mmol/L (22-29); Chloride 116 mmol/L (96-108); Creatinine Clr Calc Pharmacy 70.9; Estimated Glomerular Filt Rate > 60; Glucose Random 168 mg/dL (60-115); Magnesium 1.9 mg/dL (1.6-2.6); Potassium 3.5 mmol/L (3.3-5.1); Sodium 140 mmol/L (135-145)
[2021-12-06 18:55] LABS: Glucose, Whole Blood 148 mg/dL (60-115)
[2021-12-06] MEDS: Acetaminophen 325 MG TABLET 975 MG PO (19:56)
[2021-12-06 19:59] LABS: Glucose, Whole Blood 135 mg/dL (60-115)
[2021-12-06 20:19] LABS: Appearance Urine CLOUDY; Color Urine YELLOW; Glucose Urine UA 250 MG/DL (NEG); Leukocyte Esterase Urine NEG (NEG); Nitrite Urine NEG (NEG); Specific Gravity - Urine >= 1.030 (1.005-1.025); UACC Culture Trigger NO; Urine Blood 2+ (NEG); Urine Ketones 5 MG/DL (NEG); Urine Protein 2+ MG/DL (NEG-TRACE)
[2021-12-06 20:30] LABS: Amorphous Sediment Urine 2+ /LPF; Bacteria Urine TRACE /LPF; Squamous Epithelial Cell Urine TRACE /LPF; WBC Urine 0-2 /HPF (0-4)
[2021-12-06 20:57] LABS: Glucose, Whole Blood 137 mg/dL (60-115)
[2021-12-06 21:53] LABS: Glucose, Whole Blood 134 mg/dL (60-115)
[2021-12-06 21:53] LABS: Venous Blood Gas Refer to POC result
[2021-12-06 21:56] LABS: VBG HCO3 15 mmol/L (22-26); VBG pCO2 23 mmHg; VBG pH 7.41 (7.32-7.43); VBG pO2 104 mmHg
[2021-12-06 22:18] LABS: Anion Gap 9 (12-20); Blood Urea Nitrogen 9 mg/dL (9-16); Calcium 8.5 mg/dL (8.4-10.2); Carbon Dioxide 15 mmol/L (22-29); Chloride 118 mmol/L (96-108); Creatinine Clr Calc Pharmacy 76.6; Estimated Glomerular Filt Rate > 60; Glucose Random 146 mg/dL (60-115); Magnesium 1.9 mg/dL (1.6-2.6); Phosphorus 0.9 mg/dL (2.7-4.5); Potassium 3.3 mmol/L (3.3-5.1); Sodium 139 mmol/L (135-145)
[2021-12-06 22:54] LABS: Glucose, Whole Blood 121 mg/dL (60-115)
[2021-12-06 23:58] LABS: Glucose, Whole Blood 140 mg/dL (60-115)
[2021-12-07] VITALS (25 sets, daily range): BP systolic 145–199; BP diastolic 71–116; PULSE 101–117; RESP 17–26; TEMP 37.2–38.1; O2SAT 94–98; BMI 24.4
[2021-12-07 00:58] LABS: Glucose, Whole Blood 140 mg/dL (60-115)
[2021-12-07 02:02] LABS: Glucose, Whole Blood 141 mg/dL (60-115)
[2021-12-07 02:29] LABS: Anion Gap 13 (12-20); Blood Urea Nitrogen 9 mg/dL (9-16); Calcium 8.8 mg/dL (8.4-10.2); Carbon Dioxide 14 mmol/L (22-29); Chloride 117 mmol/L (96-108); Creatinine Clr Calc Pharmacy 78.7; Estimated Glomerular Filt Rate > 60; Glucose Random 147 mg/dL (60-115); Magnesium 1.9 mg/dL (1.6-2.6); Potassium 3.5 mmol/L (3.3-5.1); Sodium 140 mmol/L (135-145)
[2021-12-07 02:40] LABS: Phosphorus 1.9 mg/dL (2.7-4.5)
[2021-12-07] MEDS: Potassium Phosphate/NS 15 MMOL/250 ML PLAST..BAG 62.5 MMOL IV ×4 (03:02→21:36)
[2021-12-07 03:11] LABS: Glucose, Whole Blood 145 mg/dL (60-115)
[2021-12-07 04:01] LABS: Glucose, Whole Blood 145 mg/dL (60-115)
[2021-12-07 05:04] LABS: Venous Blood Gas Refer to POC result
--- NOTE | 2021-12-07 05:05 | PC.NURSE ---
Initial contact: pt main complaints are weakness and tiredness. denies pain. LS clear, no edema skin is good. Pt abd soft non-tender. Pt did have one episode of N/V. pt was on insulin and was titrated according to protocol until pt was 121 POC. PA stated to cut units in half to 2 per hour. Pt recheck was then 140, PA advised to give 3 units/hr and as long as sugars remain stable she can stay at that rate. Pt sugars have maintained in the 140s since.
[2021-12-07 05:06] LABS: Glucose, Whole Blood 148 mg/dL (60-115)
[2021-12-07] MEDS: KCl 40 mEq in 5% Dex/0.45% Sod 40 MEQ/1,000 ML IV.SOLN 100 MEQ IVCONT (05:11)
[2021-12-07 05:12] LABS: VBG Base Excess -11.6 mmol/L; VBG HCO3 9 mmol/L (22-26); VBG pCO2 14 mmHg; VBG pH 7.41 (7.32-7.43); VBG pO2 67 mmHg
[2021-12-07] MEDS: ondansetron HCL 4 MG/2 ML VIAL IVPUSH (05:15)
[2021-12-07 05:47] LABS: Phosphorus 2.5 mg/dL (2.7-4.5)
[2021-12-07 05:53] LABS: Anion Gap 11 (12-20); Blood Urea Nitrogen 8 mg/dL (9-16); Calcium 8.7 mg/dL (8.4-10.2); Carbon Dioxide 15 mmol/L (22-29); Chloride 118 mmol/L (96-108); Creatinine Clr Calc Pharmacy 85.9; Estimated Glomerular Filt Rate > 60; Glucose Random 151 mg/dL (60-115); Magnesium 1.9 mg/dL (1.6-2.6); Potassium 3.7 mmol/L (3.3-5.1); Sodium 140 mmol/L (135-145)
[2021-12-07 06:06] LABS: Glucose, Whole Blood 128 mg/dL (60-115)
[2021-12-07 06:11] LABS: Venous Blood Gas Refer to POC result
--- NOTE | 2021-12-07 06:26 | PC.NURSE ---
MD and PA aware of high BP's
[2021-12-07 07:07] LABS: Glucose, Whole Blood 157 mg/dL (60-115)
[2021-12-07] MEDS: Heparin Sodium,Porcine 5,000 UNIT/ML VIAL 5000 UNIT SUBCUT ×3 (07:32→22:08)
[2021-12-07] MEDS: lisinopriL 20 MG TABLET PO (07:32)
[2021-12-07 08:03] LABS: VBG Base Excess -10.4 mmol/L; VBG HCO3 11 mmol/L (22-26); VBG pCO2 17 mmHg; VBG pH 7.41 (7.32-7.43); VBG pO2 124 mmHg
[2021-12-07 08:05] LABS: Glucose, Whole Blood 165 mg/dL (60-115)
[2021-12-07] MEDS: Sodium Bicarbonate 8.4% 100 MEQ in Dextrose 5 % 900 ML 50 MEQ IV (08:14)
[2021-12-07 08:16] LABS: Venous Blood Gas Refer to POC result
[2021-12-07 08:47] LABS: Phosphorus 2.3 mg/dL (2.7-4.5)
[2021-12-07 09:01] LABS: Glucose, Whole Blood 159 mg/dL (60-115)
[2021-12-07] MEDS: Insulin Regular/NS 100 UNIT/100 ML PLAST..BAG IVCONT (10:00)
[2021-12-07 10:31] LABS: Glucose, Whole Blood 143 mg/dL (60-115)
[2021-12-07 11:06] LABS: VBG Base Excess -6.6 mmol/L; VBG HCO3 15 mmol/L (22-26); VBG pCO2 23 mmHg; VBG pH 7.42 (7.32-7.43); VBG pO2 119 mmHg
[2021-12-07 11:06] LABS: Venous Blood Gas Refer to POC result
[2021-12-07 11:25] LABS: Anion Gap 9 (12-20); Blood Urea Nitrogen 7 mg/dL (9-16); Calcium 8.3 mg/dL (8.4-10.2); Carbon Dioxide 16 mmol/L (22-29); Chloride 118 mmol/L (96-108); Creatinine Clr Calc Pharmacy 96.1; Estimated Glomerular Filt Rate > 60; Glucose Random 122 mg/dL (60-115); Magnesium 1.8 mg/dL (1.6-2.6); Phosphorus 1.8 mg/dL (2.7-4.5); Potassium 3.3 mmol/L (3.3-5.1); Sodium 140 mmol/L (135-145)
[2021-12-07 11:36] LABS: Glucose, Whole Blood 115 mg/dL (60-115)
--- NOTE | 2021-12-07 12:59 | P.PNCC_ITS ---
Subjective Subjective Date of Service: 12/07/21 Interval History: 61-year-old female who in talking further has a an acute component of her presentation as well as a maybe 2 phase subacute component she presented feeling very sick right from the airport where she flew in from [place] which she had driven down in dropped off a car and the no the nausea abdominal discomfort etc. who was very significant and this was the presentation diabetic ketoacidosis even though she is at a type 2 diabetic although and insulin-dependent clearly had been either diminishing or stopping the insulin intermittently because she realized her appetite and intake was poor and she notes that she has lost 80 lb at least in this last 6 months to year and there was a time back in the fall when she thought she had a tick that she had picked off nothing was really done about that she never had a rash no distinct arthralgias are any specific symptoms at that time and all of her issues began a year ago when she had shingles and was treated with acyclovir and that is when the weight loss seems to have started currently the anion gap metabolic acidosis seems to have repaired but her serum bicarb is still very low in intractable but apparently she has had significant diarrhea with frequent stooling in the last 24 hours and with a low-grade temperature and persistent nausea and at this point she has a hyperchloremic non-anion gap metabolic acidosis and so I have switch my fluids once again and now at a bicarb drip so as to repair this hyperchloremia. In terms of her needs for potassium magnesium and phosphorus she is almost behaving like a re-feed Ng syndrome with fairly large requirements that we continue to satisfy and I sent off of the workup veno for tick-borne disease all of which is outstanding and pending in her sed rate is within normal limits Critical Care Time (minutes): 60 Physical Exam Vital Signs: Vital Signs: Last Vital Signs Temp 99.7 F 12/07/21 12:00 Pulse 110 H 12/07/21 12:00 Resp 21 H 12/07/21 12:00 BP 163/93 H 12/07/21 12:00 Pulse Ox 98 12/07/21 12:00 BMI result Body Mass Index 24.4 awake alert oriented and nonfocal neurologically she seems to have had a low-grade temperature last night today just persistent sinus tachycardia and increasing hypertension and based upon that constellation of findings in knowing that there was no unusual ingestion of anything in given the entire history I so sent off a chemical workup to rule out the pheochromocytoma to rule out carcinoid the no syndrome etc. all that is outstanding and pending and tomorrow when the 24 hour collections are complete in a we might be able to treat her with a gentle introduction of a combined alpha beta judy abdomen is soft no organomegaly chest is clear cardiovascular normal by bedside echo no skin lesions Objective Data Labs CBC & Chem 7: 12/06/21 04:18 12/07/21 10:53 Labs: Laboratory Results - last 24 hr 12/06/21 12/06/21 12/06/21 10:21 12:56 13:05 VBG pH 7.36 7.38 VBG pCO2 20 19 VBG pO2 59 51 VBG HCO3 12 L 11 L VBG O2 Saturation 93.0 89.0 VBG Base Excess -10.7 -10.6 Sodium Potassium Chloride Carbon Dioxide Anion Gap BUN Creatinine Estim Creat Clear Calc Estimated GFR POC Glucose 194 H Random Glucose Calcium Phosphorus Magnesium Carcinoembryonic Ag Urine Color Urine Appearance Urine pH Ur Specific [place] Urine Protein Urine Glucose (UA) Urine Ketones Urine Blood Urine Nitrite Ur Leukocyte Esterase Urine RBC Urine WBC Ur Squamous Epith Cells Amorphous Sediment Urine Bacteria 12/06/21 12/06/21 12/06/21 13:06 14:10 14:59 VBG pH VBG pCO2 VBG pO2 VBG HCO3 VBG O2 Saturation VBG Base Excess Sodium 141 Potassium 2.8 L Chloride 117 H Carbon Dioxide 15 L Anion Gap 12 BUN 11 Creatinine 0.89 Estim Creat Clear Calc 63.7 Estimated GFR > 60 POC Glucose 158 H 146 H Random Glucose 198 H Calcium 8.7 Phosphorus Magnesium 1.6 Carcinoembryonic Ag Urine Color Urine Appearance Urine pH Ur Specific [place] Urine Protein Urine Glucose (UA) Urine Ketones Urine Blood Urine Nitrite Ur Leukocyte Esterase Urine RBC Urine WBC Ur Squamous Epith Cells Amorphous Sediment Urine Bacteria 12/06/21 12/06/21 12/06/21 16:01 17:01 17:58 VBG pH VBG pCO2 VBG pO2 VBG HCO3 VBG O2 Saturation VBG Base Excess Sodium Potassium Chloride Carbon Dioxide Anion Gap BUN Creatinine Estim Creat Clear Calc Estimated GFR POC Glucose 146 H 165 H 147 H Random Glucose Calcium Phosphorus Magnesium Carcinoembryonic Ag Urine Color Urine Appearance Urine pH Ur Specific [place] Urine Protein Urine Glucose (UA) Urine Ketones Urine Blood Urine Nitrite Ur Leukocyte Esterase Urine RBC Urine WBC Ur Squamous Epith Cells Amorphous Sediment Urine Bacteria 12/06/21 12/06/21 12/06/21 17:59 18:01 18:51 VBG pH 7.40 VBG pCO2 19 VBG pO2 57 VBG HCO3 12 L VBG O2 Saturation 91.0 VBG Base Excess -10.0 Sodium 140 Potassium 3.5 D Chloride 116 H Carbon Dioxide 15 L Anion Gap 13 BUN 9 Creatinine 0.80 Estim Creat Clear Calc 70.9 Estimated GFR > 60 POC Glucose 148 H Random Glucose 168 H Calcium 8.8 Phosphorus Magnesium 1.9 Carcinoembryonic Ag Urine Color Urine Appearance Urine pH Ur Specific [place] Urine Protein Urine Glucose (UA) Urine Ketones Urine Blood Urine Nitrite Ur Leukocyte Esterase Urine RBC Urine WBC Ur Squamous Epith Cells Amorphous Sediment Urine Bacteria 12/06/21 12/06/21 12/06/21 19:55 20:09 20:53 VBG pH VBG pCO2 VBG pO2 VBG HCO3 VBG O2 Saturation VBG Base Excess Sodium Potassium Chloride Carbon Dioxide Anion Gap BUN Creatinine Estim Creat Clear Calc Estimated GFR POC Glucose 135 H 137 H Random Glucose Calcium Phosphorus Magnesium Carcinoembryonic Ag Urine Color YELLOW Urine Appearance CLOUDY Urine pH 6.0 Ur Specific [place] >= 1.030 H Urine Protein 2+ H Urine Glucose (UA) 250 H Urine Ketones 5 Urine Blood 2+ H Urine Nitrite NEG Ur Leukocyte Esterase NEG Urine RBC 1-4 Urine WBC 0-2 Ur Squamous Epith Cells TRACE Amorphous Sediment 2+ Urine Bacteria TRACE 12/06/21 12/06/21 12/06/21 21:47 21:49 21:50 VBG pH 7.41 VBG pCO2 23 VBG pO2 104 VBG HCO3 15 L VBG O2 Saturation 99.0 VBG Base Excess -7.0 Sodium 139 Potassium 3.3 Chloride 118 H Carbon Dioxide 15 L Anion Gap 9 L BUN 9 Creatinine 0.74 Estim Creat Clear Calc 76.6 Estimated GFR > 60 POC Glucose 134 H Random Glucose 146 H Calcium 8.5 Phosphorus 0.9 L* Magnesium 1.9 Carcinoembryonic Ag Urine Color Urine Appearance Urine pH Ur Specific [place] Urine Protein Urine Glucose (UA) Urine Ketones Urine Blood Urine Nitrite Ur Leukocyte Esterase Urine RBC Urine WBC Ur Squamous Epith Cells Amorphous Sediment Urine Bacteria 12/06/21 12/06/21 12/07/21 22:50 23:54 00:54 VBG pH VBG pCO2 VBG pO2 VBG HCO3 VBG O2 Saturation VBG Base Excess Sodium Potassium Chloride Carbon Dioxide Anion Gap BUN Creatinine Estim Creat Clear Calc Estimated GFR POC Glucose 121 H 140 H 140 H Random Glucose Calcium Phosphorus Magnesium Carcinoembryonic Ag Urine Color Urine Appearance Urine pH Ur Specific [place] Urine Protein Urine Glucose (UA) Urine Ketones Urine Blood Urine Nitrite Ur Leukocyte Esterase Urine RBC Urine WBC Ur Squamous Epith Cells Amorphous Sediment Urine Bacteria 12/07/21 12/07/21 12/07/21 01:41 01:59 03:07 VBG pH VBG pCO2 VBG pO2 VBG HCO3 VBG O2 Saturation VBG Base Excess Sodium 140 Potassium 3.5 Chloride 117 H Carbon Dioxide 14 L Anion Gap 13 BUN 9 Creatinine 0.72 Estim Creat Clear Calc 78.7 Estimated GFR > 60 POC Glucose 141 H 145 H Random Glucose 147 H Calcium 8.8 Phosphorus 1.9 L Magnesium 1.9 Carcinoembryonic Ag Urine Color Urine Appearance Urine pH Ur Specific [place] Urine Protein Urine Glucose (UA) Urine Ketones Urine Blood Urine Nitrite Ur Leukocyte Esterase Urine RBC Urine WBC Ur Squamous Epith Cells Amorphous Sediment Urine Bacteria 12/07/21 12/07/21 12/07/21 03:56 05:02 05:04 VBG pH VBG pCO2 VBG pO2 VBG HCO3 VBG O2 Saturation VBG Base Excess Sodium 140 Potassium 3.7 Chloride 118 H Carbon Dioxide 15 L Anion Gap 11 L BUN 8 L Creatinine 0.66 Estim Creat Clear Calc 85.9 Estimated GFR > 60 POC Glucose 145 H 148 H Random Glucose 151 H Calcium 8.7 Phosphorus Magnesium 1.9 Carcinoembryonic Ag Urine Color Urine Appearance Urine pH Ur Specific [place] Urine Protein Urine Glucose (UA) Urine Ketones Urine Blood Urine Nitrite Ur Leukocyte Esterase Urine RBC Urine WBC Ur Squamous Epith Cells Amorphous Sediment Urine Bacteria 12/07/21 12/07/21 12/07/21 05:04 05:05 06:01 VBG pH 7.41 VBG pCO2 14 VBG pO2 67 VBG HCO3 9 L VBG O2 Saturation 94.0 VBG Base Excess -11.6 Sodium Potassium Chloride Carbon Dioxide Anion Gap BUN Creatinine Estim Creat Clear Calc Estimated GFR POC Glucose 128 H Random Glucose Calcium Phosphorus 2.5 L Magnesium Carcinoembryonic Ag Urine Color Urine Appearance Urine pH Ur Specific [place] Urine Protein Urine Glucose (UA) Urine Ketones Urine Blood Urine Nitrite Ur Leukocyte Esterase Urine RBC Urine WBC Ur Squamous Epith Cells Amorphous Sediment Urine Bacteria 12/07/21 12/07/21 12/07/21 07:02 07:53 07:56 VBG pH 7.41 VBG pCO2 17 VBG pO2 124 VBG HCO3 11 L VBG O2 Saturation 99.0 VBG Base Excess -10.4 Sodium Potassium Chloride Carbon Dioxide Anion Gap BUN Creatinine Estim Creat Clear Calc Estimated GFR POC Glucose 157 H Random Glucose Calcium Phosphorus 2.3 L Magnesium Carcinoembryonic Ag Urine Color Urine Appearance Urine pH Ur Specific [place] Urine Protein Urine Glucose (UA) Urine Ketones Urine Blood Urine Nitrite Ur Leukocyte Esterase Urine RBC Urine WBC Ur Squamous Epith Cells Amorphous Sediment Urine Bacteria 12/07/21 12/07/21 12/07/21 08:01 08:56 10:00 VBG pH VBG pCO2 VBG pO2 VBG HCO3 VBG O2 Saturation VBG Base Excess Sodium Potassium Chloride Carbon Dioxide Anion Gap BUN Creatinine Estim Creat Clear Calc Estimated GFR POC Glucose 165 H 159 H 143 H Random Glucose Calcium Phosphorus Magnesium Carcinoembryonic Ag Urine Color Urine Appearance Urine pH Ur Specific [place] Urine Protein Urine Glucose (UA) Urine Ketones Urine Blood Urine Nitrite Ur Leukocyte Esterase Urine RBC Urine WBC Ur Squamous Epith Cells Amorphous Sediment Urine Bacteria 12/07/21 12/07/21 12/07/21 10:53 10:53 11:00 VBG pH 7.42 VBG pCO2 23 VBG pO2 119 VBG HCO3 15 L VBG O2 Saturation 99.0 VBG Base Excess -6.6 Sodium 140 Potassium 3.3 Chloride 118 H Carbon Dioxide 16 L Anion Gap 9 L BUN 7 L Creatinine 0.59 Estim Creat Clear Calc 96.1 Estimated GFR > 60 POC Glucose Random Glucose 122 H Calcium 8.3 L Phosphorus 1.8 L Magnesium 1.8 Carcinoembryonic Ag 4.00 Urine Color Urine Appearance Urine pH Ur Specific [place] Urine Protein Urine Glucose (UA) Urine Ketones Urine Blood Urine Nitrite Ur Leukocyte Esterase Urine RBC Urine WBC Ur Squamous Epith Cells Amorphous Sediment Urine Bacteria 12/07/21 11:08 VBG pH VBG pCO2 VBG pO2 VBG HCO3 VBG O2 Saturation VBG Base Excess Sodium Potassium Chloride Carbon Dioxide Anion Gap BUN Creatinine Estim Creat Clear Calc Estimated GFR POC Glucose 115 Random Glucose Calcium Phosphorus Magnesium Carcinoembryonic Ag Urine Color Urine Appearance Urine pH Ur Specific [place] Urine Protein Urine Glucose (UA) Urine Ketones Urine Blood Urine Nitrite Ur Leukocyte Esterase Urine RBC Urine WBC Ur Squamous Epith Cells Amorphous Sediment Urine Bacteria Microbiology Microbiology Results: Microbiology 12/05/21 23:42 Urine clean catch - Clean Catch Midstream Urine Culture - Final 12/05/21 22:08 Blood - Venous Blood Culture - Preliminary No growth after 24 hours. 12/05/21 21:57 Blood - Venous Blood Culture - Preliminary No growth after 24 hours. Progress Note: A&P Assessment and plan (1) Hypophosphatemia: Status: Acute (2) Hypomagnesemia syndrome: Status: Acute (3) Hypokalemia with shifts of fluid from extracellular to intracellular space: Status: Acute (4) BART (acute kidney injury): Status: Acute (5) High triglycerides: Status: Acute (6) DKA (diabetic ketoacidosis): Status: Acute Plan so the plan is to workup as we see dimension for tick-borne disease ruling out entity such as pheochromocytoma and carcinoid syndrome etc. she will probably need more extensive imaging now that she is more stable and in addition I am hoping that she will have and and improvement in her serum bicarb and reduction in her current chloride elevation and and now that her volume is replaced and once the 24 hour collections are complete we we could start her on an alpha beta judy like labetalol more Coreg just gently the no to control the hypertension did when tachycardia symptoms Quality Stroke Does the patient have a stroke diagnosis?: No VTE Prior VTE?: No VTE Risk Level:: Medical - low VTE Device Contraindication: N/A - Device Ordered VTE Drug Contraindication: N/A - Med Ordered
[2021-12-07 13:06] LABS: Glucose, Whole Blood 185 mg/dL (60-115)
[2021-12-07] MEDS: Doxycycline Hyclate 100 MG in 0.9 % Sodium Chloride 250 ML 166.67 MG IV (13:30)
[2021-12-07 14:11] LABS: Glucose, Whole Blood 193 mg/dL (60-115)
[2021-12-07 15:08] LABS: Glucose, Whole Blood 166 mg/dL (60-115)
[2021-12-07 16:31] LABS: Glucose, Whole Blood 155 mg/dL (60-115)
[2021-12-07 17:06] LABS: Glucose, Whole Blood 154 mg/dL (60-115)
[2021-12-07 18:15] LABS: Glucose, Whole Blood 120 mg/dL (60-115)
[2021-12-07 19:11] LABS: Glucose, Whole Blood 160 mg/dL (60-115)
[2021-12-07 19:23] LABS: VBG Base Excess -4.1 mmol/L; VBG HCO3 18 mmol/L (22-26); VBG pCO2 26 mmHg; VBG pH 7.44 (7.32-7.43); VBG pO2 61 mmHg
[2021-12-07 19:27] LABS: Venous Blood Gas Refer to POC result
[2021-12-07 19:37] LABS: Anion Gap 12 (12-20); Blood Urea Nitrogen 5 mg/dL (9-16); Calcium 8.1 mg/dL (8.4-10.2); Carbon Dioxide 18 mmol/L (22-29); Chloride 113 mmol/L (96-108); Creatinine Clr Calc Pharmacy 96.1; Estimated Glomerular Filt Rate > 60; Glucose Random 166 mg/dL (60-115); Magnesium 1.7 mg/dL (1.6-2.6); Phosphorus 2.6 mg/dL (2.7-4.5); Potassium 3.3 mmol/L (3.3-5.1); Sodium 140 mmol/L (135-145)
[2021-12-07 20:08] LABS: Glucose, Whole Blood 150 mg/dL (60-115)
[2021-12-07] MEDS: Acetaminophen 325 MG TABLET 975 MG PO (20:22)
[2021-12-07 21:07] LABS: Glucose, Whole Blood 153 mg/dL (60-115)
[2021-12-07 21:36] LABS: Leukocytes Stool Qualitative NEGATIVE (NEGATIVE)
[2021-12-07 21:45] LABS: CDiff Gene PCR NEGATIVE (Negative)
[2021-12-07 22:15] LABS: Glucose, Whole Blood 195 mg/dL (60-115)
[2021-12-07 23:22] LABS: VBG Base Excess -7.3 mmol/L; VBG HCO3 13 mmol/L (22-26); VBG pCO2 17 mmHg; VBG pH 7.49 (7.32-7.43); VBG pO2 88 mmHg
[2021-12-07 23:49] LABS: Anion Gap 11 (12-20); Blood Urea Nitrogen 4 mg/dL (9-16); Carbon Dioxide 20 mmol/L (22-29); Chloride 112 mmol/L (96-108); Creatinine Clr Calc Pharmacy 99.5; Estimated Glomerular Filt Rate > 60; Glucose Random 180 mg/dL (60-115); Magnesium 1.6 mg/dL (1.6-2.6); Phosphorus 3.2 mg/dL (2.7-4.5); Potassium 3.2 mmol/L (3.3-5.1); Sodium 140 mmol/L (135-145)
[2021-12-08] VITALS (17 sets, daily range): BP systolic 139–192; BP diastolic 70–112; PULSE 82–108; RESP 14–22; TEMP 36.6–37.7; O2SAT 93–98; BMI 24.3
[2021-12-08] MEDS: Doxycycline Hyclate 100 MG in 0.9 % Sodium Chloride 250 ML 166.67 MG IV (00:03)
[2021-12-08 00:12] LABS: Glucose, Whole Blood 166 mg/dL (60-115)
[2021-12-08 00:52] LABS: Venous Blood Gas Refer to POC result
[2021-12-08] MEDS: Potassium Phosphate/NS 15 MMOL/250 ML PLAST..BAG 62.5 MMOL IV (01:46)
[2021-12-08 02:04] LABS: Glucose, Whole Blood 164 mg/dL (60-115)
[2021-12-08 03:20] LABS: VBG Base Excess -3.5 mmol/L; VBG HCO3 14 mmol/L (22-26); VBG pCO2 13 mmHg; VBG pH 7.63 (7.32-7.43); VBG pO2 138 mmHg
[2021-12-08 03:21] LABS: Venous Blood Gas Refer to POC result
[2021-12-08 03:32] LABS: Anion Gap 10 (12-20); Blood Urea Nitrogen 3 mg/dL (9-16); Calcium 7.7 mg/dL (8.4-10.2); Carbon Dioxide 20 mmol/L (22-29); Chloride 113 mmol/L (96-108); Creatinine Clr Calc Pharmacy 103.1; Estimated Glomerular Filt Rate > 60; Glucose Random 153 mg/dL (60-115); Magnesium 1.5 mg/dL (1.6-2.6); Phosphorus 3.3 mg/dL (2.7-4.5); Potassium 3.4 mmol/L (3.3-5.1); Sodium 140 mmol/L (135-145)
[2021-12-08] MEDS: Sodium Bicarbonate 8.4% 100 MEQ in Dextrose 5 % 900 ML 50 MEQ IV (03:37)
[2021-12-08 04:06] LABS: Glucose, Whole Blood 163 mg/dL (60-115)
[2021-12-08] MEDS: Labetalol HCL 100 MG/20 ML VIAL 10 MG IVPUSH (05:20)
[2021-12-08 05:52] LABS: Glucose, Whole Blood 182 mg/dL (60-115)
[2021-12-08] MEDS: Heparin Sodium,Porcine 5,000 UNIT/ML VIAL 5000 UNIT SUBCUT ×3 (06:41→23:09)
[2021-12-08 07:04] LABS: Glucose, Whole Blood 198 mg/dL (60-115)
[2021-12-08 07:40] LABS: VBG Base Excess -1.1 mmol/L; VBG HCO3 19 mmol/L (22-26); VBG pCO2 24 mmHg; VBG pH 7.52 (7.32-7.43); VBG pO2 73 mmHg
[2021-12-08 07:46] LABS: Venous Blood Gas Refer to POC result
[2021-12-08 07:55] LABS: Anion Gap 10 (12-20); Blood Urea Nitrogen 4 mg/dL (9-16); Calcium 7.9 mg/dL (8.4-10.2); Carbon Dioxide 23 mmol/L (22-29); Chloride 110 mmol/L (96-108); Creatinine Clr Calc Pharmacy 101.2; Estimated Glomerular Filt Rate > 60; Glucose Random 191 mg/dL (60-115); Magnesium 1.5 mg/dL (1.6-2.6); Phosphorus 2.7 mg/dL (2.7-4.5); Sodium 140 mmol/L (135-145)
[2021-12-08 07:55] LABS: Glucose, Whole Blood 168 mg/dL (60-115)
[2021-12-08] MEDS: Potassium Chloride Packet 20 MEQ PACKET 60 MEQ PO (08:34)
[2021-12-08] MEDS: Magnesium Sulfate/H2O 2 GM/50 ML PIGGYBACK IV (08:34)
[2021-12-08] MEDS: Insulin Glargine,Hum.rec.anlog 100 UNIT/ML 10 ML VIAL 40 UNIT SUBCUT (08:34)
[2021-12-08] MEDS: lisinopriL 20 MG TABLET PO ×2 (08:34→11:22)
[2021-12-08 09:03] LABS: Glucose, Whole Blood 243 mg/dL (60-115)
--- NOTE | 2021-12-08 10:45 | PM.CCPN ---
Subjective Subjective Date of Service: 12/08/21 Interval History: 61-year-old lady with underlying history of type 1 diabetes mellitus, hypertension, kidney stones, asthma, poor medication compliance admitted on 12/05/2021 with diabetic ketoacidosis. Patient has been started on insulin drip and IV fluid resuscitation and admitted to intensive care unit. No events overnight. Titrated off insulin drip. Critical Care Time (minutes): 0 Physical Exam Vital Signs: Vital Signs: Last Vital Signs Temp 99.7 F 12/08/21 09:00 Pulse 105 H 12/08/21 10:00 Resp 19 12/08/21 10:00 BP 159/85 H 12/08/21 10:00 Pulse Ox 98 12/08/21 10:00 BMI result Body Mass Index 24.3 Const: General: no acute distress, alert and awake Eyes: Sclerae: sclerae normal EOM: EOMs intact bilaterally Neck: Neck: Yes no lymphadenopathy, Yes trachea midline and Yes supple Resp: Effort & Inspection: normal respiratory effort and no respiratory distress Auscultation: clear to auscultation bilaterally Cardio: Rate: tachycardic Rhythm: regular rhythm Heart sounds: no gallops, no murmurs and no rubs GI: Palpation (GI): Soft to palpation and Other GI palpation findings present ( Nontender) Auscultation: normal bowel sounds Extrem: General: Yes no pedal edema, No clubbing and No cyanosis Objective Data Labs CBC & Chem 7: 12/06/21 04:18 12/08/21 12:00 Labs: Laboratory Results - last 24 hr 12/07/21 12/07/21 12/07/21 10:53 10:53 11:00 VBG pH 7.42 VBG pCO2 23 VBG pO2 119 VBG HCO3 15 L VBG O2 Saturation 99.0 VBG Base Excess -6.6 Sodium 140 Potassium 3.3 Chloride 118 H Carbon Dioxide 16 L Anion Gap 9 L BUN 7 L Creatinine 0.59 Estim Creat Clear Calc 96.1 Estimated GFR > 60 POC Glucose Random Glucose 122 H Calcium 8.3 L Phosphorus 1.8 L Magnesium 1.8 Carcinoembryonic Ag 4.00 Stool Leukocytes, Qual C. difficile Tox B Gene 12/07/21 12/07/21 12/07/21 11:08 13:01 14:06 VBG pH VBG pCO2 VBG pO2 VBG HCO3 VBG O2 Saturation VBG Base Excess Sodium Potassium Chloride Carbon Dioxide Anion Gap BUN Creatinine Estim Creat Clear Calc Estimated GFR POC Glucose 115 185 H 193 H Random Glucose Calcium Phosphorus Magnesium Carcinoembryonic Ag Stool Leukocytes, Qual C. difficile Tox B Gene 12/07/21 12/07/21 12/07/21 15:04 16:09 17:02 VBG pH VBG pCO2 VBG pO2 VBG HCO3 VBG O2 Saturation VBG Base Excess Sodium Potassium Chloride Carbon Dioxide Anion Gap BUN Creatinine Estim Creat Clear Calc Estimated GFR POC Glucose 166 H 155 H 154 H Random Glucose Calcium Phosphorus Magnesium Carcinoembryonic Ag Stool Leukocytes, Qual C. difficile Tox B Gene 12/07/21 12/07/21 12/07/21 18:06 19:06 19:13 VBG pH VBG pCO2 VBG pO2 VBG HCO3 VBG O2 Saturation VBG Base Excess Sodium 140 Potassium 3.3 Chloride 113 H Carbon Dioxide 18 L Anion Gap 12 BUN 5 L Creatinine 0.59 Estim Creat Clear Calc 96.1 Estimated GFR > 60 POC Glucose 120 H 160 H Random Glucose 166 H Calcium 8.1 L Phosphorus 2.6 L Magnesium 1.7 Carcinoembryonic Ag Stool Leukocytes, Qual C. difficile Tox B Gene 12/07/21 12/07/21 12/07/21 19:15 20:05 20:31 VBG pH 7.44 H VBG pCO2 26 VBG pO2 61 VBG HCO3 18 L VBG O2 Saturation 92.0 VBG Base Excess -4.1 Sodium Potassium Chloride Carbon Dioxide Anion Gap BUN Creatinine Estim Creat Clear Calc Estimated GFR POC Glucose 150 H Random Glucose Calcium Phosphorus Magnesium Carcinoembryonic Ag Stool Leukocytes, Qual NEGATIVE C. difficile Tox B Gene 12/07/21 12/07/21 12/07/21 20:31 21:04 22:07 VBG pH VBG pCO2 VBG pO2 VBG HCO3 VBG O2 Saturation VBG Base Excess Sodium Potassium Chloride Carbon Dioxide Anion Gap BUN Creatinine Estim Creat Clear Calc Estimated GFR POC Glucose 153 H 195 H Random Glucose Calcium Phosphorus Magnesium Carcinoembryonic Ag Stool Leukocytes, Qual C. difficile Tox B Gene NEGATIVE 12/07/21 12/07/21 12/08/21 23:13 23:14 00:03 VBG pH 7.49 H VBG pCO2 17 VBG pO2 88 VBG HCO3 13 L VBG O2 Saturation 98.0 VBG Base Excess -7.3 Sodium 140 Potassium 3.2 L Chloride 112 H Carbon Dioxide 20 L Anion Gap 11 L BUN 4 L Creatinine 0.57 Estim Creat Clear Calc 99.5 Estimated GFR > 60 POC Glucose 166 H Random Glucose 180 H Calcium 8.0 L Phosphorus 3.2 Magnesium 1.6 Carcinoembryonic Ag Stool Leukocytes, Qual C. difficile Tox B Gene 12/08/21 12/08/21 12/08/21 01:59 03:01 03:05 VBG pH 7.63 H* VBG pCO2 13 VBG pO2 138 VBG HCO3 14 L VBG O2 Saturation 99.0 VBG Base Excess -3.5 Sodium 140 Potassium 3.4 Chloride 113 H Carbon Dioxide 20 L Anion Gap 10 L BUN 3 L Creatinine 0.55 Estim Creat Clear Calc 103.1 Estimated GFR > 60 POC Glucose 164 H Random Glucose 153 H Calcium 7.7 L Phosphorus 3.3 Magnesium 1.5 L Carcinoembryonic Ag Stool Leukocytes, Qual C. difficile Tox B Gene 12/08/21 12/08/21 12/08/21 04:02 05:48 07:00 VBG pH VBG pCO2 VBG pO2 VBG HCO3 VBG O2 Saturation VBG Base Excess Sodium Potassium Chloride Carbon Dioxide Anion Gap BUN Creatinine Estim Creat Clear Calc Estimated GFR POC Glucose 163 H 182 H 198 H Random Glucose Calcium Phosphorus Magnesium Carcinoembryonic Ag Stool Leukocytes, Qual C. difficile Tox B Gene 12/08/21 12/08/21 12/08/21 07:29 07:32 07:51 VBG pH 7.52 H VBG pCO2 24 VBG pO2 73 VBG HCO3 19 L VBG O2 Saturation 96.0 VBG Base Excess -1.1 Sodium 140 Potassium 3.0 L Chloride 110 H Carbon Dioxide 23 Anion Gap 10 L BUN 4 L Creatinine 0.56 Estim Creat Clear Calc 101.2 Estimated GFR > 60 POC Glucose 168 H Random Glucose 191 H Calcium 7.9 L Phosphorus 2.7 Magnesium 1.5 L Carcinoembryonic Ag Stool Leukocytes, Qual C. difficile Tox B Gene 12/08/21 08:59 VBG pH VBG pCO2 VBG pO2 VBG HCO3 VBG O2 Saturation VBG Base Excess Sodium Potassium Chloride Carbon Dioxide Anion Gap BUN Creatinine Estim Creat Clear Calc Estimated GFR POC Glucose 243 H Random Glucose Calcium Phosphorus Magnesium Carcinoembryonic Ag Stool Leukocytes, Qual C. difficile Tox B Gene Microbiology Microbiology Results: Microbiology 12/07/21 20:31 Stool Stool Culture - Preliminary Normal so far. 12/05/21 22:08 Blood - Venous Blood Culture - Preliminary No growth after 48 hours. 12/05/21 21:57 Blood - Venous Blood Culture - Preliminary No growth after 48 hours. 12/05/21 23:42 Urine clean catch - Clean Catch Midstream Urine Culture - Final Progress Note: A&P Assessment and plan (1) DKA (diabetic ketoacidosis): Status: Acute Plan Assessment: 61-year-old lady with underlying type 1 diabetes mellitus and supposed poor compliance with treatment admitted with diabetic ketoacidosis Plan: Neuro: No acute issues. Cardiac: No acute issues. Underlying hypertension. Continue antihypertensive regimen. Pulmonary: No acute issues. Renal: acute renal failure, secondary to DKA, resolved. Endo: Diabetic ketoacidosis, resolved, titrated off insulin drip. Continue subcutaneous insulin. GI: No acute issues. ID: No acute issues Heme/Onc: No acute issues. Psych: No acute issues. Miscellaneous: No acute issues. Prophylaxis: Heparin Diet: diabetic Quality Stroke Does the patient have a stroke diagnosis?: No VTE Prior VTE?: No VTE Risk Level:: Medical - low VTE Device Contraindication: N/A - Device Ordered VTE Drug Contraindication: N/A - Med Ordered
[2021-12-08 11:36] LABS: Glucose, Whole Blood 227 mg/dL (60-115)
[2021-12-08] MEDS: Insulin Lispro 100 UNIT/ML 3 ML VIAL SUBCUT ×2 (12:08→21:30)
[2021-12-08 12:26] LABS: Anion Gap 11 (12-20); Blood Urea Nitrogen 4 mg/dL (9-16); Calcium 8.4 mg/dL (8.4-10.2); Carbon Dioxide 23 mmol/L (22-29); Chloride 108 mmol/L (96-108); Creatinine Clr Calc Pharmacy 96.1; Estimated Glomerular Filt Rate > 60; Glucose Random 223 mg/dL (60-115); Potassium 3.4 mmol/L (3.3-5.1); Sodium 139 mmol/L (135-145)
[2021-12-08 12:37] LABS: Myeloperoxidase Antibody <1.0 AI; Proteinase 3 PR3 Antibodies <1.0 AI
[2021-12-08 13:20] LABS: PTT (LAC) Screen 25 sec (< OR = 40)
--- NOTE | 2021-12-08 16:40 | PM.EVENT ---
Event Note Date of Service: 12/09/21 Event Note: patient admitted to ICU because of DKA, receiving IV insulin and hydration seems improving physio: see ICU note from today unchanged assessment and plan coordinated in the ICU today discussed with ICU attending in detail. Patient is probably DKA due to non compliance withdm meds
[2021-12-08] MEDS: ondansetron HCL 4 MG/2 ML VIAL IVPUSH (16:44)
[2021-12-08 16:47] LABS: Glucose, Whole Blood 124 mg/dL (60-115)
--- NOTE | 2021-12-08 17:00 | PC.NURSE ---
Assumed care at 15:00. Patient alert and oriented. Breathing easy and regular on room air. No signs or symptoms of hypo or hyperglycemia. POC 124, no coverage for 16:30. Patient is hungry, and dinner order taken by kitchen staff. Patient was mildly nauseous with standing OOB and transferring to wheelchair in preparation for transfer to [facility], room 369, and IV zofran 4 mg was given PRN with good effect. Patient is otherwise largely wighout complaint. Mild headache, refused tylanol at this time. Patient with Clear lung sounds, dim bases to auscultation. Breathing easily on room air. Sinus tachycardia on monitor with no ectopy, S1, S2, no murmurs. No appreciable edema. Skin intact. Rash on left lower back apparently a scar from history of shingles. Bruising to left hand dorsum associated with a history of infiltrated IV. Patient is voiding without incident since removal of sorenson catheter, and purewick external urinary catheter also removed, as patient is not incontinent,
--- NOTE | 2021-12-08 17:56 | PC.NURSE ---
Pt arrived to the unit via wheelchair. A/O. Offers no complaints at this time. Tolerating dinner well.
[2021-12-08 20:52] LABS: Glucose, Whole Blood 178 mg/dL (60-115)
[2021-12-08 21:12] LABS: Lyme Abs Screen <0.90 index
[2021-12-08 22:26] LABS: A. Phagocytphilium DNA,RT-PCR NOT DETECTED (NOT DETECTED); Babesia Microti DNA, RT-PCR NOT DETECTED (NOT DETECTED); Borrelia Miyamotoi,DNA RT-PCR NOT DETECTED (NOT DETECTED); E.Chaffeensis DNA RT-PCR NOT DETECTED (NOT DETECTED); Lyme(Borrelia ssp)DNA RT-PCR NOT DETECTED (NOT DETECTED); Source-Tick borne disease NOT GIVEN
[2021-12-09 02:59] VITALS: BP 176/82; PULSE 89; RESP 16; TEMP 37.2; O2SAT 97
[2021-12-09 06:02] LABS: MANUAL DIFF FLAG NO
[2021-12-09 06:05] LABS: Basophils Percent Auto 0.5 % (0-2); Eosinophils Absolute Auto 0.1 X10*3/uL (0.0-0.4); Eosinophils Percent Auto 1.2 % (0-4); Hematocrit 39.1 % (37.0-47.0); Hemoglobin 13.6 g/dl (12.0-16.0); Imm Gran Abs Auto 0.02 X10*3/uL (0.00-0.03); Imm Gran Pct Auto 0.3 % (0.0-0.4); Lymphocytes Absolute Auto 2.3 X10*3/uL (1.2-4.9); Lymphocytes Percent Auto 39.6 % (20-40); Mean Corpuscular HGB Conc 34.8 g/dl (31.0-35.0); Mean Corpuscular Hemoglobin 30.3 pg (27.0-33.0); Mean Corpuscular Volume 87.1 fL (80.0-98.0); Mean Platelet Volume 10.2 fL (9.4-12.3); Monocytes Absolute Auto 0.5 X10*3/uL (0.1-1.2); Monocytes Percent Auto 8.6 % (2-11); Neutrophils Absolute Auto 2.9 x10*3/uL (2.0-8.3); Neutrophils Percent Auto 49.8 % (45-73); Platelet Count 219 X10*3/uL (160-400); Red Blood Count 4.49 X10*6/uL (4.20-5.50); Red Cell Distribution Width 12.8 % (11.0-16.0); White Blood Count 5.7 X10*3/uL (4.8-10.8)
[2021-12-09 06:28] LABS: Albumin Level 2.6 g/dL (3.5-5.0); Anion Gap 12 (12-20); Blood Urea Nitrogen 6 mg/dL (9-16); Calcium 8.5 mg/dL (8.4-10.2); Carbon Dioxide 25 mmol/L (22-29); Chloride 107 mmol/L (96-108); Creatinine Clr Calc Pharmacy 97.8; Estimated Glomerular Filt Rate > 60; Glucose Random 182 mg/dL (60-115); Phosphorus 2.5 mg/dL (2.7-4.5); Potassium 3.5 mmol/L (3.3-5.1); Sodium 140 mmol/L (135-145)
[2021-12-09 07:23] VITALS: BP 165/88; PULSE 90; RESP 17; TEMP 36.7; O2SAT 95
[2021-12-09 07:29] LABS: Glucose, Whole Blood 180 mg/dL (60-115)
[2021-12-09] MEDS: Atorvastatin Calcium 80 MG TABLET PO (07:42)
[2021-12-09] MEDS: Sertraline HCL 100 MG TABLET PO (07:42)
[2021-12-09] MEDS: Insulin Glargine,Hum.rec.anlog 100 UNIT/ML 10 ML VIAL 40 UNIT SUBCUT (07:42)
[2021-12-09] MEDS: Insulin Lispro 100 UNIT/ML 3 ML VIAL SUBCUT ×2 (07:42→11:33)
[2021-12-09] MEDS: lisinopriL 40 MG TABLET PO (07:42)
[2021-12-09] MEDS: Heparin Sodium,Porcine 5,000 UNIT/ML VIAL 5000 UNIT SUBCUT ×2 (07:43→14:45)
[2021-12-09] MEDS: Sodium,Potassium Phosphates POWD.PACK 1 PACKET PO ×2 (07:43→12:17)
[2021-12-09 11:14] VITALS: BP 172/85; PULSE 94; RESP 18; TEMP 36.9; O2SAT 96
[2021-12-09 11:31] LABS: Glucose, Whole Blood 268 mg/dL (60-115)
--- NOTE | 2021-12-09 11:47 | P.PNIM_ITS ---
Subjective Subjective Date of Service: 12/09/21 Interval History: dka , tick bite , dirrhae Physical Exam Vital Signs: Vital Signs: Last Vital Signs Temp 98.5 F 12/09/21 11:14 Pulse 94 12/09/21 11:14 Resp 18 12/09/21 11:14 BP 172/85 H 12/09/21 11:14 Pulse Ox 96 12/09/21 11:14 BMI result Body Mass Index 24.3 Objective Data Active Medications Albuterol Sulfate (Albuterol Sulfate 90 Mcg 8 Gm Inhaler) 2 puff INHALE Q4H PRN PRN Reason: Shortness Of Breath Amlodipine Besylate (Amlodipine Besylate 2.5 Mg Tablet) 2.5 mg PO ONCE ONE; Protocol Stop: 12/09/21 11:47 Atorvastatin Calcium (Atorvastatin Calcium 80 Mg Tablet) 80 mg PO DAILY [facility] Last Admin: 12/09/21 07:42 Dose: 80 mg Documented by: JUANJO Dextrose (Dextrose 50 % 25 Gm/50 Ml Syringe) 25 gm IVPUSH Q30M PRN PRN Reason: Nursing Actions in Insulin Infusion Protocol Heparin Sodium (Porcine) (Heparin Sodium,Porcine 5,000 Unit/Ml Vial) 5,000 unit SUBCUT Q8H [facility] Last Admin: 12/09/21 07:43 Dose: 5,000 unit Documented by: JUANJO Insulin Glargine (Insulin Glargine,Hum.Rec.Anlog 100 Unit/Ml 10 Ml Vial) 40 unit SUBCUT DAILY [facility] Last Admin: 12/09/21 07:42 Dose: 40 unit Documented by: JUANJO Insulin Human Lispro (Insulin Lispro 100 Unit/Ml 3 Ml Vial) 0 unit SUBCUT QIDACHS [facility]; Protocol Last Admin: 12/09/21 11:33 Dose: 6 unit Documented by: JUANJO Lisinopril (Lisinopril 40 Mg Tablet) 40 mg PO DAILY [facility]; Protocol Last Admin: 12/09/21 07:42 Dose: 40 mg Documented by: JUANJO Ondansetron HCl (Ondansetron Hcl 4 Mg/2 Ml Vial) 4 mg IVPUSH Q4H PRN PRN Reason: nausea Last Admin: 12/08/21 16:44 Dose: 4 mg Documented by: ELIZABETH Pharmacy Consult (Consult Rx Perform Med Rec) 1 each MISCELLANE ONCE PRN PRN Reason: Consult order Potassium Phos/Sodium Phos (Sodium,Potassium Phosphates Powd.Pack) 1 packet PO QID [facility] Last Admin: 12/09/21 07:43 Dose: 1 packet Documented by: JUANJO Sertraline HCl (Sertraline Hcl 100 Mg Tablet) 100 mg PO DAILY [facility] Last Admin: 12/09/21 07:42 Dose: 100 mg Documented by: JUANJO Labs CBC & Chem 7: 12/09/21 05:34 12/09/21 05:34 Labs: Laboratory Results - last 24 hr 12/05/21 12/05/21 12/07/21 23:53 23:53 07:53 MCV MCH MCHC RDW Plt Count MPV Immature Gran % (Auto) Neut % (Auto) Lymph % (Auto) [place] % (Auto) Eos % (Auto) Baso % (Auto) Lymph # (Auto) [place] # (Auto) Eos # (Auto) Baso # (Auto) Abs Immat Gran (auto) Absolute Neuts (auto) Absolute Nucleated RBC Nucleated RBC % (auto) LA PTT Screen 25 LA Thrombin Time TNP dRVV Screen 30 dRVVT Confirm Interp TNP dRVVT Mixing Study TNP dRVVT Mix Interpret TNP Hexagon Phase Neutraliz TNP Lupus Anticoag Interp SEE NOTE Anion Gap Estim Creat Clear Calc Estimated GFR POC Glucose Random Glucose Calcium Phosphorus Magnesium Albumin Proteinase 3 (PR3) Ab <1.0 Myeloperoxidase Ab <1.0 A.phagocytophil DNA PCR Babesia microti DNA PCR Borrelia sp DNA (PCR) Lyme Screen IgG & IgM <0.90 Borrelia miyamotoi (PCR) E.chaffeensis DNA (PCR) Tick-borne Disease PCR 12/07/21 12/08/21 12/08/21 07:53 12:00 16:43 MCV MCH MCHC RDW Plt Count MPV Immature Gran % (Auto) Neut % (Auto) Lymph % (Auto) Hardeman % (Auto) Eos % (Auto) Baso % (Auto) Lymph # (Auto) [place]eman # (Auto) Eos # (Auto) Baso # (Auto) Abs Immat Gran (auto) Absolute Neuts (auto) Absolute Nucleated RBC Nucleated RBC % (auto) LA PTT Screen LA Thrombin Time dRVV Screen dRVVT Confirm Interp dRVVT Mixing Study dRVVT Mix Interpret Hexagon Phase Neutraliz Lupus Anticoag Interp Anion Gap 11 L Estim Creat Clear Calc 96.1 Estimated GFR > 60 POC Glucose 124 H Random Glucose 223 H Calcium 8.4 D Phosphorus Magnesium Albumin Proteinase 3 (PR3) Ab Myeloperoxidase Ab A.phagocytophil DNA PCR NOT DETECTED Babesia microti DNA PCR NOT DETECTED Borrelia sp DNA (PCR) NOT DETECTED Lyme Screen IgG & IgM Borrelia miyamotoi (PCR) NOT DETECTED E.chaffeensis DNA (PCR) NOT DETECTED Tick-borne Disease PCR NOT GIVEN 12/08/21 12/09/21 12/09/21 20:45 05:34 05:34 MCV 87.1 MCH 30.3 MCHC 34.8 RDW 12.8 Plt Count 219 MPV 10.2 Immature Gran % (Auto) 0.3 Neut % (Auto) 49.8 Lymph % (Auto) 39.6 Hardeman % (Auto) 8.6 Eos % (Auto) 1.2 Baso % (Auto) 0.5 Lymph # (Auto) 2.3 Hardeman # (Auto) 0.5 Eos # (Auto) 0.1 Baso # (Auto) 0.0 Abs Immat Gran (auto) 0.02 Absolute Neuts (auto) 2.9 Absolute Nucleated RBC 0.000 Nucleated RBC % (auto) 0.0 LA PTT Screen LA Thrombin Time dRVV Screen dRVVT Confirm Interp dRVVT Mixing Study dRVVT Mix Interpret Hexagon Phase Neutraliz Lupus Anticoag Interp Anion Gap 12 Estim Creat Clear Calc 97.8 Estimated GFR > 60 POC Glucose 178 H Random Glucose 182 H Calcium 8.5 Phosphorus 2.5 L Magnesium 2.0 Albumin 2.6 L D Proteinase 3 (PR3) Ab Myeloperoxidase Ab A.phagocytophil DNA PCR Babesia microti DNA PCR Borrelia sp DNA (PCR) Lyme Screen IgG & IgM Borrelia miyamotoi (PCR) E.chaffeensis DNA (PCR) Tick-borne Disease PCR 12/09/21 12/09/21 07:16 11:13 MCV MCH MCHC RDW Plt Count MPV Immature Gran % (Auto) Neut % (Auto) Lymph % (Auto) Hardeman % (Auto) Eos % (Auto) Baso % (Auto) Lymph # (Auto) Hardeman # (Auto) Eos # (Auto) Baso # (Auto) Abs Immat Gran (auto) Absolute Neuts (auto) Absolute Nucleated RBC Nucleated RBC % (auto) LA PTT Screen LA Thrombin Time dRVV Screen dRVVT Confirm Interp dRVVT Mixing Study dRVVT Mix Interpret Hexagon Phase Neutraliz Lupus Anticoag Interp Anion Gap Estim Creat Clear Calc Estimated GFR POC Glucose 180 H 268 H Random Glucose Calcium Phosphorus Magnesium Albumin Proteinase 3 (PR3) Ab Myeloperoxidase Ab A.phagocytophil DNA PCR Babesia microti DNA PCR Borrelia sp DNA (PCR) Lyme Screen IgG & IgM Borrelia miyamotoi (PCR) E.chaffeensis DNA (PCR) Tick-borne Disease PCR Microbiology Microbiology Results: Microbiology 12/07/21 20:31 Stool Culture - Preliminary Stool Normal so far. Quality Stroke Does the patient have a stroke diagnosis?: No VTE Prior VTE?: No VTE Risk Level:: Medical - low VTE Device Contraindication: N/A - Device Ordered VTE Drug Contraindication: N/A - Med Ordered
[2021-12-09] MEDS: amLODIPine Besylate 2.5 MG TABLET PO (12:17)
[2021-12-09 13:47] LABS: Anti Nuclear Antibody Pattern Nuclear, Nucleolar; Anti Nuclear Antibody Screen POSITIVE (NEGATIVE); Anti Nuclear Antibody Titer 1:40 titer
[2021-12-09 13:49] LABS: Leukocytes Stool Qualitative NEGATIVE (NEGATIVE)
--- NOTE | 2021-12-09 14:27 | MHC.CM.PN ---
Addendum entered by Erinn Chamberlain 12/09/21 14:39: PATIENT HAS A FAMILY MEMBER (IN ROOM) WHO STATES THAT THEY ARE GOING TO STAY AROUND THE AREA AND HELP TO TAKE CARE OF PATIENT. Original Note: PATIENT IS DISCHARGED HOME - SELF CARE. SHE WILL NEED DM MEDICATION ADMINISTRATION TEACHING PRIOR TO DC
--- NOTE | 2021-12-09 14:42 | PM.DS ---
DS: Providers Provider Date of Service: 12/09/21 Date of admission: 12/05/21 22:44 Primary care physician: Unknown Physician Consults: 12/09/21 11:15 Consult to Infectious Diseases Routine Consulting Provider: Rehana Mace Reason for consultation: ? tick bite , chronic diarrahe ,multiple nonspecific symptoms Has provider been notified: No DS: Diagnosis Discharge Diagnosis (1) DKA (diabetic ketoacidosis): Status: Acute DS: Summary Hospital Course Hospital Course: 61-year-old female with a past medical history of type 1 diabetes, HTN, HLD, kidney stones and asthma? who came into the emergency department earlier today stating she was short of breath since yesterday.? Patient states she last used her 60U of 70-30 insulin yesterday morning but did not take it this morning. Patient traveled by plane from [place] this morning and waited to go to the ED until she was back home.? Patient denies any nausea, vomiting, chest pain, cough,? abdominal pain, fever or chills.? She does admit to excessive thirst and not eating for the past 2 days. Patient states this is never happened to her before and she has had Type 1 diabetes since she was 29 years old. Patient's vital signs during my exam were as follows, temp 99 degrees F, sinus tach 128BPM, respirations 28, blood pressure 192/90, pulse X 97% on room air. PE remarkable for Kussmaul breathing and olayinka mottling on bilateral upper and lower extremities. Labs in the ED were remarkable for WBC 13.4, serum bicarb 5, anion gap 32, BUN 17, creatinine 1.76, glucose 512,? pH 6.9, pCO2 16, PO2 65, bicarb 3, O2 sat 86%,? base excess -28.1, lactic acid 2.9. Chest x-ray negative for acute processes, CT of the abdomen and pelvis negative for acute process. Patient was started on insulin drip and given 2 L of normal saline in the ED. UA pending, COVID pending, U tox pending,? sed rate pending, lupus panel pending, VARUN pending, Anca pending,? 2nd set of VBG and BMP as well as acetaminophen, triglycerides, salicylate, calcium, magnesium, phosphorus, lipase all pending. Hospital course: Patient came to hospital because of DKA: probably related to medication noncompliance: Started on IV insulin and hydration seems to be improved, electrolytes repleted, also had l low phosphate currently near normal levels, added p.o. replacement upon discharge. Patient was started on Lantus which she is tolerating well at this is admission. advise strongly for diabetic medication compliance and diabetic diet, diabetic education was given. patient has chronic diarrhea: no abdominal pain, tolerating diet fine, C diff earlier and stool for WBC negative repeat C diff ordered but less likely to be infectious diarrhea. discussed with the staff had to bowel movement since yesterday so improving diarrhea - further management out patiently with PCP. History of tick bites 6 months ago: Lyme screen IgG and IgM is fine, multiple serologies including A phagocytophilum ,E . chaffeensis and immunologies (VARUN) in addition urine metanephrine , normetanephrine, catecholamine are pending patient currently denies any new symptoms or fever or elevated WBC. discussed with infectious disease - no antibiotic currently, follow-up above workup with PCP outpatient and further management outpatient as per PCP. Above management discussed with the patient in detail length she understand and in agreement with above plan. Time Spent with Patient Time attestation: Total time spent providing and/or coordinating discharge services: Discharge coordination time: Greater than 30 minutes Quality: Safe Use of Opioids Does Pt have an Active Cancer Diagnosis on the Problem List?: No Quality: Stroke Does the patient have a stroke diagnosis?: No Physical Exam Vital Signs: Vital Signs: Last Vital Signs Temp 98.5 F 12/09/21 11:14 Pulse 94 12/09/21 11:14 Resp 18 12/09/21 11:14 BP 172/85 H 12/09/21 11:14 Pulse Ox 96 12/09/21 11:14 BMI result Body Mass Index 24.3 Appearance: Alert.? Oriented X3.? not in distress.? Eyes: Pupils equal, round and reactive to light.? Sclera nonicteric.? ENT: Pharynx normal.? Moist mucous membranes. cvs: rrr, [id number] , no murmur res: clear to auscultation ,no rhonchii or wheezing abd: no rebound or guarding ,nt, bs present. ext pulses present , no cyanosis . neuro: axo3 , nonfocal. DS: Data Data Completed and Pending Labs on day of discharge: Laboratory Results - last 24 hr 12/05/21 12/05/21 12/07/21 23:53 23:53 07:53 WBC RBC Hgb Hct MCV MCH MCHC RDW Plt Count MPV Immature Gran % (Auto) Neut % (Auto) Lymph % (Auto) [place]eson % (Auto) Eos % (Auto) Baso % (Auto) Lymph # (Auto) [place] # (Auto) Eos # (Auto) Baso # (Auto) Abs Immat Gran (auto) Absolute Neuts (auto) Absolute Nucleated RBC Nucleated RBC % (auto) LA Thrombin Time TNP dRVVT Confirm Interp TNP dRVVT Mixing Study TNP dRVVT Mix Interpret TNP Hexagon Phase Neutraliz TNP Sodium Potassium Chloride Carbon Dioxide Anion Gap BUN Creatinine Estim Creat Clear Calc Estimated GFR POC Glucose Random Glucose Calcium Phosphorus Magnesium Albumin Stool Leukocytes, Qual VARUN Screen POSITIVE A VARUN Titer 1:40 H VARUN Titer 2 1:80 H VARUN Pattern Nuclear, Nucleolar A VARUN Pattern 2 A A.phagocytophil DNA PCR Babesia microti DNA PCR Borrelia sp DNA (PCR) Lyme Screen IgG & IgM <0.90 Borrelia miyamotoi (PCR) E.chaffeensis DNA (PCR) Tick-borne Disease PCR 12/07/21 12/08/21 12/08/21 07:53 16:43 20:45 WBC RBC Hgb Hct MCV MCH MCHC RDW Plt Count MPV Immature Gran % (Auto) Neut % (Auto) Lymph % (Auto) Robeson % (Auto) Eos % (Auto) Baso % (Auto) Lymph # (Auto) [place]eson # (Auto) Eos # (Auto) Baso # (Auto) Abs Immat Gran (auto) Absolute Neuts (auto) Absolute Nucleated RBC Nucleated RBC % (auto) LA Thrombin Time dRVVT Confirm Interp dRVVT Mixing Study dRVVT Mix Interpret Hexagon Phase Neutraliz Sodium Potassium Chloride Carbon Dioxide Anion Gap BUN Creatinine Estim Creat Clear Calc Estimated GFR POC Glucose 124 H 178 H Random Glucose Calcium Phosphorus Magnesium Albumin Stool Leukocytes, Qual VARUN Screen VARUN Titer VARUN Titer 2 VARUN Pattern VARUN Pattern 2 A.phagocytophil DNA PCR NOT DETECTED Babesia microti DNA PCR NOT DETECTED Borrelia sp DNA (PCR) NOT DETECTED Lyme Screen IgG & IgM Borrelia miyamotoi (PCR) NOT DETECTED E.chaffeensis DNA (PCR) NOT DETECTED Tick-borne Disease PCR NOT GIVEN 12/09/21 12/09/21 12/09/21 05:34 05:34 07:16 WBC 5.7 RBC 4.49 Hgb 13.6 Hct 39.1 MCV 87.1 MCH 30.3 MCHC 34.8 RDW 12.8 Plt Count 219 MPV 10.2 Immature Gran % (Auto) 0.3 Neut % (Auto) 49.8 Lymph % (Auto) 39.6 Robeson % (Auto) 8.6 Eos % (Auto) 1.2 Baso % (Auto) 0.5 Lymph # (Auto) 2.3 Robeson # (Auto) 0.5 Eos # (Auto) 0.1 Baso # (Auto) 0.0 Abs Immat Gran (auto) 0.02 Absolute Neuts (auto) 2.9 Absolute Nucleated RBC 0.000 Nucleated RBC % (auto) 0.0 LA Thrombin Time dRVVT Confirm Interp dRVVT Mixing Study dRVVT Mix Interpret Hexagon Phase Neutraliz Sodium 140 Potassium 3.5 Chloride 107 Carbon Dioxide 25 Anion Gap 12 BUN 6 L Creatinine 0.58 Estim Creat Clear Calc 97.8 Estimated GFR > 60 POC Glucose 180 H Random Glucose 182 H Calcium 8.5 Phosphorus 2.5 L Magnesium 2.0 Albumin 2.6 L D Stool Leukocytes, Qual VARUN Screen VARUN Titer VARUN Titer 2 VARUN Pattern VARUN Pattern 2 A.phagocytophil DNA PCR Babesia microti DNA PCR Borrelia sp DNA (PCR) Lyme Screen IgG & IgM Borrelia miyamotoi (PCR) E.chaffeensis DNA (PCR) Tick-borne Disease PCR 12/09/21 12/09/21 11:13 12:45 WBC RBC Hgb Hct MCV MCH MCHC RDW Plt Count MPV Immature Gran % (Auto) Neut % (Auto) Lymph % (Auto) Robeson % (Auto) Eos % (Auto) Baso % (Auto) Lymph # (Auto) [place]eson # (Auto) Eos # (Auto) Baso # (Auto) Abs Immat Gran (auto) Absolute Neuts (auto) Absolute Nucleated RBC Nucleated RBC % (auto) LA Thrombin Time dRVVT Confirm Interp dRVVT Mixing Study dRVVT Mix Interpret Hexagon Phase Neutraliz Sodium Potassium Chloride Carbon Dioxide Anion Gap BUN Creatinine Estim Creat Clear Calc Estimated GFR POC Glucose 268 H Random Glucose Calcium Phosphorus Magnesium Albumin Stool Leukocytes, Qual NEGATIVE VARUN Screen VARUN Titer VARUN Titer 2 VARUN Pattern VARUN Pattern 2 A.phagocytophil DNA PCR Babesia microti DNA PCR Borrelia sp DNA (PCR) Lyme Screen IgG & IgM Borrelia miyamotoi (PCR) E.chaffeensis DNA (PCR) Tick-borne Disease PCR Preliminary micro results at discharge 12/07/21 20:31 Stool Culture - Preliminary Stool Normal so far. 12/05/21 22:08 Blood Culture - Preliminary Blood - Venous No growth after 48 hours. 12/05/21 21:57 Blood Culture - Preliminary Blood - Venous No growth after 48 hours. Discharge Plan Discharge Patient Disposition: Home, Self-Care Discharge Diagnosis: DKA, hypophosphatemia, chronic diarrhea. Referrals: Ilir Hodge MD [Physician] - 1 Week Physician,Radha Garcia [Primary Care Provider] - 1 Week Discharge Medications: New Lantus U-100 Insulin 100 unit/mL Solution 40 unit subcut DAILY Qty: 10 0RF potassium, sodium phosphates [Phos-NaK] 280-160-250 mg Powder In Packet 1 packet PO QID Qty: 10 0RF Continued atorvastatin 80 mg tablet 1 tab PO DAILY 0RF sertraline 100 mg tablet 1 tab PO DAILY 0RF amlodipine 5 mg tablet 1 tab PO DAILY 0RF metformin 1,000 mg tablet 1 tab PO BID 0RF lisinopril-hydrochlorothiazide 20-25 mg tablet 1 tab PO DAILY 0RF albuterol sulfate 90 mcg/actuation HFA aerosol inhaler 2 puff inhalation Q4H PRN (Reason: Shortness Of Breath) 0RF insulin lispro [Humalog KwikPen Insulin] 100 unit/mL Insulin Pen 1 sliding scale dose SUBCUT USEASDIRECTD 0RF Discontinued insulin NPH and regular human 100 unit/mL (70-30) Insulin Pen 60 unit SUBCUT DAILY 0RF Discharge Orders: Discharge Order (Routine); Ordered 12/09/21 Ordered By: Diego Jung Diet: advance to usual diet Activity on Discharge: As tolerated Stand Alone Forms: Patient Portal Discharge page Care Plan Goals: Patient came to hospital because of DKA: probably related to medication noncompliance: Started on IV insulin and hydration seems to be improved, electrolytes repleted, also had l low phosphate currently near normal levels, added p.o. replacement upon discharge. Patient was started on Lantus which she is tolerating well at this is admission. advise strongly for diabetic medication compliance and diabetic diet, diabetic education was given. patient has chronic diarrhea: no abdominal pain, tolerating diet fine, C diff earlier and stool for WBC negative repeat C diff ordered but less likely to be infectious diarrhea. discussed with the staff had to bowel movement since yesterday so improving diarrhea - further management out patiently with PCP. History of tick bites 6 months ago: Lyme screen IgG and IgM is fine, multiple serologies including A phagocytophilum ,E . chaffeensis and immunologies (VARUN) in addition urine metanephrine , normetanephrine, catecholamine are pending please follow up bmp and above labs with Pcp. patient currently denies any new symptoms or fever or elevated WBC. discussed with infectious disease - no antibiotic currently, follow-up above workup with PCP outpatient and further management outpatient as per PCP. Above management discussed with the patient in detail length she understand and in agreement with above plan. Health Concerns: As above. Plan of Treatment: As above. Assessment: As above.
[2021-12-09] MEDS: ondansetron HCL 4 MG/2 ML VIAL IVPUSH (14:59)
--- NOTE | 2021-12-09 15:26 | P.CNID_ITS ---
History of Present Illness Data of Consult Service Date: 12/09/21 Requesting physician: Diego Jung Primary Care Provider: Unknown Physician HPI Reason for consult: possible infection She presents with fatigue and weakness. She has not taken insulin for a month. She has no fever or chills. She has old scab on left shoulder she says from tick bite six months ago. Review of Systems Review of Systems: Yes all other systems are reviewed and are negative [facility] Past Medical History Medical History Asthma Diabetes HLD (hyperlipidemia) Hypertension Nephrolithiasis Family History Family history: reviewed and not pertinent Social History Social History Household Members: Spouse Housing: House Do you presently have visiting nurse or other home services: No Unable to assess alcohol history related to: Unknown Alcohol intake: never Patient Tobacco Use Status: Tobacco use Unknown service: No Current occupational status: disabled Meds Allergies Allergy/AdvReac Type Severity Reaction Status Date / Time Penicillins [PENICILLINS] Allergy Severe RASH Verified 12/05/21 20:04 Sulfa (Sulfonamide Allergy Severe THROMBOCYTOPENIA, Verified 12/05/21 20:04 Antibiotics) severe [SULFA (SULFONAMIDE ANTIBIOTICS)] penicillin V Allergy Unknown rash Verified 12/05/21 20:04 Active Medications: Current Medications Albuterol Sulfate (Albuterol Sulfate 90 Mcg 8 Gm Inhaler) 2 puff INHALE Q4H PRN PRN Reason: Shortness Of Breath Atorvastatin Calcium (Atorvastatin Calcium 80 Mg Tablet) 80 mg PO DAILY [facility] Last Admin: 12/09/21 07:42 Dose: 80 mg Documented by: Dextrose (Dextrose 50 % 25 Gm/50 Ml Syringe) 25 gm IVPUSH Q30M PRN PRN Reason: Nursing Actions in Insulin Infusion Protocol Heparin Sodium (Porcine) (Heparin Sodium,Porcine 5,000 Unit/Ml Vial) 5,000 unit SUBCUT Q8H [facility] Last Admin: 12/09/21 14:45 Dose: 5,000 unit Documented by: Insulin Glargine (Insulin Glargine,Hum.Rec.Anlog 100 Unit/Ml 10 Ml Vial) 40 unit SUBCUT DAILY [facility] Last Admin: 12/09/21 07:42 Dose: 40 unit Documented by: Insulin Human Lispro (Insulin Lispro 100 Unit/Ml 3 Ml Vial) 0 unit SUBCUT QIDACHS [facility]; Protocol Last Admin: 12/09/21 11:33 Dose: 6 unit Documented by: Lisinopril (Lisinopril 40 Mg Tablet) 40 mg PO DAILY [facility]; Protocol Last Admin: 12/09/21 07:42 Dose: 40 mg Documented by: Ondansetron HCl (Ondansetron Hcl 4 Mg/2 Ml Vial) 4 mg IVPUSH Q4H PRN PRN Reason: nausea Last Admin: 12/09/21 14:59 Dose: 4 mg Documented by: Pharmacy Consult (Consult Rx Perform Med Rec) 1 each MISCELLANE ONCE PRN PRN Reason: Consult order Potassium Phos/Sodium Phos (Sodium,Potassium Phosphates Powd.Pack) 1 packet PO QID [facility] Last Admin: 12/09/21 12:17 Dose: 1 packet Documented by: Sertraline HCl (Sertraline Hcl 100 Mg Tablet) 100 mg PO DAILY [facility] Last Admin: 12/09/21 07:42 Dose: 100 mg Documented by: Home Medications Medication Instructions Recorded Confirmed Last Taken Type albuterol sulfate 90 mcg/actuation 2 puff INHALATION Q4H PRN 12/05/21 12/05/21 Unknown History aerosol inhaler amlodipine 5 mg tablet 1 tab PO DAILY 12/05/21 12/05/21 Unknown History atorvastatin 80 mg tablet 1 tab PO DAILY 12/05/21 12/05/21 Unknown History insulin lispro 100 unit/mL 1 sliding scale dose SUBCUT 12/05/21 12/05/21 Unknown History subcutaneous pen (Humalog KwikPen USEASDIRECTD (U-100) Insulin) lisinopril 20 1 tab PO DAILY 12/05/21 12/05/21 Unknown History mg-hydrochlorothiazide 25 mg tablet metformin 1,000 mg tablet 1 tab PO BID 12/05/21 12/05/21 Unknown History sertraline 100 mg tablet 1 tab PO DAILY 12/05/21 12/05/21 Unknown History Physical Exam Vital Signs: Vital Signs: Last Vital Signs Temp 98.5 F 12/09/21 11:14 Pulse 94 12/09/21 11:14 Resp 18 12/09/21 11:14 BP 172/85 H 12/09/21 11:14 Pulse Ox 96 12/09/21 11:14 BMI result Body Mass Index 24.3 Const: General: cooperative HEENT: Head: Yes normal to inspection Mouth: Normal oral and palatal mucosa present Resp: Effort & Inspection: normal respiratory effort Cardio: Rate: regular rate Rhythm: regular rhythm GI: Palpation (GI): Soft to palpation and nontender Skin: Other: scab with no cellulitis right shoulder Results Labs CBC & Chem 7: 12/09/21 05:34 12/09/21 05:34 Labs: Short CBC 12/09/21 Range/Units 05:34 WBC 5.7 (4.8-10.8) X10*3/uL Hgb 13.6 (12.0-16.0) g/dl Hct 39.1 (37.0-47.0) % Plt Count 219 (160-400) X10*3/uL BMP 12/09/21 05:34 Sodium 140 Potassium 3.5 Chloride 107 Carbon Dioxide 25 BUN 6 L Creatinine 0.58 Calcium 8.5 Liver Function 12/09/21 Range/Units 05:34 Albumin 2.6 L D (3.5-5.0) g/dL Microbiology Microbiology Results: Microbiology 12/07/21 20:31 Stool Stool Culture - Preliminary Normal so far. 12/05/21 22:08 Blood - Venous Blood Culture - Preliminary No growth after 48 hours. 12/05/21 21:57 Blood - Venous Blood Culture - Preliminary No growth after 48 hours. 12/05/21 23:42 Urine clean catch - Clean Catch Midstream Urine Culture - Final Assessment and Plan (1) DKA (diabetic ketoacidosis): Status: Acute There are no signs of infection seen leading to DKA. Tick bite was six months ago and not leading to infection now and patient no fever or rash DKA likely due to patient not taking diabetic medications for a month as she says Plan No antibiotics at this time
[2021-12-09 15:31] LABS: CDiff Gene PCR NEGATIVE (Negative)
[2021-12-11 12:47] LABS: Creatinine Random Urine 45 mg/dL (20-275); Metanephrine, Free Rand Ur 140 mcg/g cr (21-153); Normetanephrine, Free Rand Ur 602 mcg/g cr (108-524); Total Metanephrine, Free RU 742 mcg/g cr (149-603)
[2021-12-11 15:31] LABS: A. Phagocytophilum Ab IgG <1:64 (<1:64); A. Phagocytophilum Ab IgM <1:20 (<1:20); E. Chaffeensis Ab IgG <1:64 (<1:64); E. Chaffeensis Ab IgM <1:20 (<1:20)
[2021-12-12 12:42] LABS: Serotonin - Serum 207 ng/mL (56-244)
[2021-12-12 18:21] LABS: Catecholamine,Calc Tot.(E+NE) 64 mcg/g cr (9-74); Creatinine, Random Urine 44 mg/dL (20-275); Dopamine, Random Urine 143 mcg/g cr (40-390); Norepinephrine, Random Urine 64 mcg/g cr (7-65)
[2021-12-13 12:17] LABS: Histamine Plasma <1.5 ng/mL (< OR = 1.8)
[2021-12-14 11:57] LABS: Metanephrine, Free 24U 101 mcg/24 h (90-315); Normetanephrine, Free 24U 391 mcg/24 h (122-676); Total Metanephrine, Free 24U 492 mcg/24 h (224-832); Total Volume 24U 2625 mL
[2021-12-15 11:11] LABS: CATF, 24 Ur Volume 2625 mL; CATF-24Ur Creatinine 0.77 g/24 h (0.50-2.15); Catecholamines,Tot. (E+NE) 24U 55 mcg/24 h (26-121); Dopamine, 24 Ur 139 mcg/24 h (52-480); Norepinephrine, 24 Ur 55 mcg/24 h (15-100)
== END 2021-12-09 15:31 | disposition home or self-care (01) | DRG 420 ==
LOC: HO.ED 20:16 → HO.EDOVER 23:26 → HO.ICU 23:29 → HO.S3 12-08 15:30
PROVIDERS: Internal Medicine Cardiovascular Disease; Internal Medicine Pulmonary Disease; Admitting Provider Physician Assistant; Emergency Provider Emergency Medicine; Visit Provider Internal Medicine
DX: E10.10 Type 1 diabetes mellitus with ketoacidosis without coma (principal); N17.9 Acute kidney failure, unspecified; E83.39 Other disorders of phosphorus metabolism; E78.5 Hyperlipidemia, unspecified; E87.6 Hypokalemia; J45.909 Unspecified asthma, uncomplicated; E78.1 Pure hyperglyceridemia; E83.42 Hypomagnesemia; Z87.442 Personal history of urinary calculi; Z20.822 Contact with and (suspected) exposure to COVID-19; Z91.19 Patient's noncompliance with other medical treatment and regimen; Z88.0 Allergy status to penicillin; Z88.2 Allergy status to sulfonamides; Z79.4 Long term (current) use of insulin; Z79.84 Long term (current) use of oral hypoglycemic drugs; Z79.899 Other long term (current) drug therapy
CPT/HCPCS: 36415; 71045; 80048; 80053; 80143; 80179; 80307; 81001; 82009; 82040; 82077; 82310; 82378; 82384; 82803; 82947; 83088; 83605; 83690; 83735; 83835; 83930; 84100; 84260; 84478; 84484; 85025; 85597; 85613; 85652; 85730; 86021; 86038; 86039; 86617; 86618; 86666; 87040; 87045; 87046; 87086; 87493; 87635; 87798; 87801; 89055; 93005; 96361; 96365; 96375; 99285; 99291; C1758; J2405; J3475

== ENCOUNTER → 2021-12-24 09:53 | Outpatient (BNVA) | payer OTHER, SELFPAY | PROVIDERS: PCP Internal Medicine; Visit Provider Nurse Practitioner Gerontology | DX: E11.9 Type 2 diabetes mellitus without complications (principal); E78.5 Hyperlipidemia, unspecified; I10 Essential (primary) hypertension; Z79.4 Long term (current) use of insulin; Z79.84 Long term (current) use of oral hypoglycemic drugs | CPT/HCPCS: 82947; 96372 ==

== ENCOUNTER 2021-12-26 10:22 | Outpatient (REF) | payer OTHER, SELFPAY ==
[2021-12-26 10:29] LABS: MANUAL DIFF FLAG NO
[2021-12-26 10:56] LABS: Appearance Urine CLEAR; Basophils Absolute Auto 0.1 X10*3/uL (0.0-0.2); Basophils Percent Auto 1.3 % (0-2); Color Urine YELLOW; Eosinophils Absolute Auto 0.1 X10*3/uL (0.0-0.4); Eosinophils Percent Auto 1.8 % (0-4); Glucose Urine UA 250 MG/DL (NEG); Hematocrit 40.6 % (37.0-47.0); Hemoglobin 13.2 g/dl (12.0-16.0); Imm Gran Abs Auto 0.01 X10*3/uL (0.00-0.03); Imm Gran Pct Auto 0.2 % (0.0-0.4); Leukocyte Esterase Urine NEG (NEG); Lymphocytes Absolute Auto 1.9 X10*3/uL (1.2-4.9); Lymphocytes Percent Auto 41.2 % (20-40); Mean Corpuscular HGB Conc 32.5 g/dl (31.0-35.0); Mean Corpuscular Hemoglobin 29.9 pg (27.0-33.0); Mean Corpuscular Volume 92.1 fL (80.0-98.0); Mean Platelet Volume 10.5 fL (9.4-12.3); Monocytes Absolute Auto 0.4 X10*3/uL (0.1-1.2); Monocytes Percent Auto 7.7 % (2-11); Neutrophils Absolute Auto 2.2 x10*3/uL (2.0-8.3); Neutrophils Percent Auto 47.8 % (45-73); Nitrite Urine NEG (NEG); Platelet Count 304 X10*3/uL (160-400); Red Blood Count 4.41 X10*6/uL (4.20-5.50); Red Cell Distribution Width 12.5 % (11.0-16.0); Specific Gravity - Urine >= 1.030 (1.005-1.025); Urine Blood NEG (NEG); Urine Ketones NEG (NEG); Urine Protein 1+ MG/DL (NEG-TRACE); White Blood Count 4.5 X10*3/uL (4.8-10.8)
[2021-12-26 11:10] LABS: Renal Epithelial Cells Urine TRACE /LPF; Squamous Epithelial Cell Urine 1+ /LPF
[2021-12-26 11:11] LABS: Bacteria Urine TRACE /LPF; RBC Urine 0-2 /HPF (0)
[2021-12-26 11:14] LABS: Alanine Aminotransferase 14 U/L (0-31); Albumin Level 3.5 g/dL (3.5-5.0); Alkaline Phosphatase 88 U/L (39-117); Anion Gap 9 (12-20); Aspartate Amino Transferase 19 U/L (5-31); Bilirubin Total 1.3 mg/dL (0.0-1.0); Blood Urea Nitrogen 9 mg/dL (9-16); Calcium 9.6 mg/dL (8.4-10.2); Carbon Dioxide 30 mmol/L (22-29); Chloride 102 mmol/L (96-108); Cholesterol 242 mg/dL; Estimated Glomerular Filt Rate > 60; Glucose Fasting 181 mg/dL (60-99); HDL Cholesterol 47 mg/dL; LDL Cholesterol Calculated 160 mg/dl; Potassium 4.2 mmol/L (3.3-5.1); Sodium 137 mmol/L (135-145); Triglycerides 177 mg/dL
[2021-12-26 11:16] LABS: Creatinine Urine 95.59 mg/dL
[2021-12-26 11:19] LABS: Vitamin D 25-OH Total 22.5 ng/mL (>30)
[2021-12-26 11:31] LABS: Estimated Average Glucose 341 mg/dL; Hemoglobin A1c % 13.5 %
== END 2021-12-26 10:23 | disposition home or self-care (01) ==
LOC: HO.LNP 10:22
PROVIDERS: Visit Provider Internal Medicine
DX: Z00.00 Encounter for general adult medical examination without abnormal findings (principal); I10 Essential (primary) hypertension; E78.00 Pure hypercholesterolemia, unspecified; E11.9 Type 2 diabetes mellitus without complications; E55.9 Vitamin D deficiency, unspecified; D72.820 Lymphocytosis (symptomatic)
CPT/HCPCS: 80053; 80061; 81001; 82043; 82306; 83036; 85025

== ENCOUNTER 2021-12-29 07:27 | Outpatient (REF) | payer OTHER, SELFPAY ==
[2021-12-29 08:29] LABS: Creatinine Urine 100.23 mg/dL; Microalbum/Creatinine Ratio Ur 373.1 ug/mg cr
[2021-12-29 08:35] LABS: Alanine Aminotransferase 21 U/L (0-31); Albumin Level 3.5 g/dL (3.5-5.0); Alkaline Phosphatase 79 U/L (39-117); Anion Gap 12 (12-20); Aspartate Amino Transferase 23 U/L (5-31); Bilirubin Total 1.2 mg/dL (0.0-1.0); Blood Urea Nitrogen 12 mg/dL (9-16); Calcium 9.4 mg/dL (8.4-10.2); Carbon Dioxide 27 mmol/L (22-29); Chloride 106 mmol/L (96-108); Cholesterol 207 mg/dL; Estimated Glomerular Filt Rate > 60; Glucose Random 128 mg/dL (60-115); HDL Cholesterol 44 mg/dL; LDL Cholesterol Calculated 135 mg/dl; Potassium 4.3 mmol/L (3.3-5.1); Sodium 141 mmol/L (135-145); Triglycerides 143 mg/dL
[2021-12-31 07:32] LABS: LDL Cholesterol Direct 128 mg/dL (<100)
[2022-01-02 21:15] LABS: Glutamic acid decarboxylase Ab <5 IU/mL (<5)
[2022-01-09 00:32] LABS: Islet Cell Antibody Screen NEGATIVE (NEGATIVE)
== END 2021-12-29 07:28 | disposition home or self-care (01) ==
LOC: HO.LAB 07:27
PROVIDERS: PCP Internal Medicine; Visit Provider Nurse Practitioner Gerontology
DX: E11.9 Type 2 diabetes mellitus without complications (principal)
CPT/HCPCS: 36415; 80053; 80061; 82043; 83721; 86255; 86341

== ENCOUNTER 2022-02-05 07:24 | Outpatient (REF) | payer OTHER, SELFPAY ==
--- NOTE | ~2022-02-05 | XR_ITS ---
EXAMINATION: XR SHOULDER, LEFT CLINICAL INFORMATION: Pain in the left shoulder. COMPARISON: No similar prior. TECHNIQUE: Three views of the left shoulder. FINDINGS: No evidence of acute fracture or malalignment. The humeral head is well-seated in the glenoid. Mild degenerative osteoarthritis of the acromioclavicular joint with osteophytes. No abnormal soft tissue calcification. The imaged left lung is within normal limits. XR/XR shoulder LT min 2V IMPRESSION: No acute fracture or malalignment. 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
== END 2022-02-05 07:25 | disposition home or self-care (01) ==
LOC: HO.HOSX 07:24
PROVIDERS: Visit Provider Physician Assistant
DX: M19.012 Primary osteoarthritis, left shoulder (principal); M75.42 Impingement syndrome of left shoulder
CPT/HCPCS: 20610; 73030; J1020

== ENCOUNTER → 2022-02-24 08:19 | Outpatient (BNVA) | payer OTHER, SELFPAY | PROVIDERS: PCP Internal Medicine; Visit Provider Nurse Practitioner Gerontology | DX: E10.29 Type 1 diabetes mellitus with other diabetic kidney complication (principal); E16.2 Hypoglycemia, unspecified; E78.5 Hyperlipidemia, unspecified; I10 Essential (primary) hypertension; Z79.4 Long term (current) use of insulin | CPT/HCPCS: 82947 ==

== ENCOUNTER 2022-02-25 06:55 | Outpatient (REF) | payer OTHER, SELFPAY ==
[2022-02-25 08:44] LABS: Anion Gap 12 (12-20); Blood Urea Nitrogen 12 mg/dL (9-16); Calcium 9.7 mg/dL (8.4-10.2); Carbon Dioxide 32 mmol/L (22-29); Chloride 103 mmol/L (96-108); Estimated Glomerular Filt Rate > 60; Glucose Fasting 95 mg/dL (60-99); Potassium 4.3 mmol/L (3.3-5.1); Sodium 143 mmol/L (135-145)
[2022-02-27 01:52] LABS: C Peptide 0.26 ng/mL (0.80-3.85)
== END 2022-02-25 06:56 | disposition home or self-care (01) ==
LOC: HO.LAB 06:55
PROVIDERS: PCP Internal Medicine; Visit Provider Nurse Practitioner Gerontology
DX: E10.9 Type 1 diabetes mellitus without complications (principal)
CPT/HCPCS: 36415; 80048; 84681

== ENCOUNTER → 2022-05-27 07:57 | Outpatient (BNVA) | payer OTHER, SELFPAY | PROVIDERS: PCP Internal Medicine; Visit Provider Internal Medicine Endocrinology, Diabetes & Metabolism | DX: E13.9 Other specified diabetes mellitus without complications (principal); S36.209S Unspecified injury of unspecified part of pancreas, sequela | CPT/HCPCS: 82947 ==

== ENCOUNTER 2022-08-26 10:11 | Outpatient (REF) | payer OTHER, SELFPAY ==
[2022-08-26 12:20] LABS: Cholesterol 188 mg/dL; Ferritin 232 ng/mL (10-250); HDL Cholesterol 43 mg/dL; LDL Cholesterol Calculated 114 mg/dl; Triglycerides 159 mg/dL
== END 2022-08-26 10:12 | disposition home or self-care (01) ==
LOC: HO.LAB 10:11
PROVIDERS: PCP Internal Medicine; Visit Provider Internal Medicine Endocrinology, Diabetes & Metabolism
DX: S36.209S Unspecified injury of unspecified part of pancreas, sequela (principal); E13.9 Other specified diabetes mellitus without complications
CPT/HCPCS: 36415; 80061; 82728

== ENCOUNTER → 2022-08-27 07:51 | Outpatient (BNVA) | payer OTHER, SELFPAY | PROVIDERS: PCP Internal Medicine; Visit Provider Internal Medicine Endocrinology, Diabetes & Metabolism | DX: K85.90 Acute pancreatitis without necrosis or infection, unspecified (principal); E08.9 Diabetes mellitus due to underlying condition without complications; I10 Essential (primary) hypertension; E78.5 Hyperlipidemia, unspecified; Z79.4 Long term (current) use of insulin; Z96.41 Presence of insulin pump (external) (internal) | CPT/HCPCS: 82947; 83036 ==

== ENCOUNTER → 2022-09-02 08:53 | Outpatient (BNVA) | payer OTHER, SELFPAY | PROVIDERS: PCP Internal Medicine; Visit Provider Dietitian, Registered | DX: E13.9 Other specified diabetes mellitus without complications (principal); S36.209S Unspecified injury of unspecified part of pancreas, sequela | CPT/HCPCS: 97802 ==

== ENCOUNTER → 2022-09-18 08:40 | Outpatient (BNVA) | payer OTHER, SELFPAY | PROVIDERS: PCP Internal Medicine; Visit Provider Registered Nurse Diabetes Educator | DX: Z13.89 Encounter for screening for other disorder (principal) ==

== ENCOUNTER 2022-10-12 10:27 | Outpatient (REF) | payer OTHER, SELFPAY ==
[2022-10-12 10:52] LABS: Estimated Average Glucose 169 mg/dL; Hemoglobin A1c % 7.5 %
[2022-10-12 10:55] LABS: Alanine Aminotransferase 16 U/L (0-31); Albumin Level 3.8 g/dL (3.5-5.0); Alkaline Phosphatase 81 U/L (39-117); Aspartate Amino Transferase 20 U/L (5-31); Bilirubin Direct 0.4 mg/dL (0.0-0.5); Bilirubin Total 1.7 mg/dL (0.0-1.0); Cholesterol 139 mg/dL; Glucose Fasting 119 mg/dL (60-99); HDL Cholesterol 50 mg/dL; LDL Cholesterol Calculated 74 mg/dl; Total Protein 5.9 g/dL (6.5-8.0); Triglycerides 77 mg/dL
[2022-10-12 15:00] LABS: Reflex LDLD? No
== END 2022-10-12 10:28 | disposition home or self-care (01) ==
LOC: HO.LNP 10:27
PROVIDERS: Visit Provider Internal Medicine
DX: E78.00 Pure hypercholesterolemia, unspecified (principal); E11.9 Type 2 diabetes mellitus without complications
CPT/HCPCS: 80061; 80076; 82947; 83036

== ENCOUNTER → 2022-10-26 09:49 | Outpatient (BNVA) | payer OTHER, SELFPAY | PROVIDERS: PCP Internal Medicine; Visit Provider Physician Assistant | DX: M75.42 Impingement syndrome of left shoulder (principal); M19.019 Primary osteoarthritis, unspecified shoulder | CPT/HCPCS: 20610; J1020 ==

== ENCOUNTER 2022-10-30 11:21 | Outpatient (REF) | payer OTHER, SELFPAY ==
--- NOTE | ~2022-10-30 | CT_ITS ---
EXAMINATION: CT ABDOMEN AND PELVIS WITHOUT CONTRAST CLINICAL INFORMATION: Left flank pain COMPARISON: 12/12/2020 TECHNIQUE: Multidetector volumetric imaging was performed from the superior aspect of the liver through the pubic symphysis. Sagittal and coronal reformatted images were obtained on the technologist's workstation. This CT examination was performed using dose optimization techniques as appropriate, variously including the following: *Automated exposure control *Adjustment of mA and/or kV according to patient size (this includes techniques or standardized protocols for targeted exams where dose is matched to indication/reason for exam; i.e. extremities or head) *Use of iterative reconstruction technique DLP: 594 mGy-cm FINDINGS: LUNG BASES: The visualized lung bases are unremarkable. LIVER, GALLBLADDER, AND BILIARY TREE: The liver is normal in size, shape, and attenuation. No focal hepatic lesion or biliary ductal dilatation is present. The gallbladder is unremarkable with no evidence of radiopaque gallstones, gallbladder wall thickening, or obvious pericholecystic inflammatory changes. PANCREAS: Unremarkable. SPLEEN: Unremarkable. ADRENAL GLANDS: Unremarkable. KIDNEYS AND URETERS: The kidneys are normal in size, shape, and attenuation. No hydronephrosis, hydroureter, or calculi seen. No perinephric stranding. Bilateral simple renal cysts. No specific follow-up recommended. The largest is seen at the left lower pole measuring 4.4 cm. BLADDER: Unremarkable. GASTROINTESTINAL TRACT: The stomach is unremarkable. Normal caliber small bowel. No obstruction. Normal appendix. There is diverticulosis which is greatest at the sigmoid colon. There is mild inflammation seen adjacent to the sigmoid colon, series 6 image 49. This could represent very mild diverticulitis. No additional colonic wall thickening.. ABDOMINAL WALL: No significant hernia is appreciated. LYMPH NODES: Normal. VASCULAR: Normal caliber aorta with mild atherosclerotic calcification. PELVIC VISCERA: The uterus and adnexa are unremarkable. OSSEOUS STRUCTURES: No acute or suspicious osseous abnormality. Mild degenerative change throughout the spine and of both hips. CT/CT abdomen pelvis wo IV con IMPRESSION: 1. Colonic diverticulosis. Mild inflammation adjacent to the sigmoid colon could represent very mild diverticulitis. 2. No hydronephrosis or nephrolithiasis. Fleischner guidelines were followed.
[2022-10-30 16:32] LABS: Appearance Urine Turbid; Color Urine Yellow; Glucose Urine UA Negative (Negative); Leukocyte Esterase Urine Moderate (2+) (Negative); Nitrite Urine Negative (Negative); PH 5.5 (5.0-9.0); Specific Gravity - Urine 1.025 (1.005-1.025); UMIC TRIGGER UACC YES; Urine Blood Negative (Negative); Urine Ketones Trace mg/dL (Negative); Urine Protein 100 (2+) mg/dL (Neg-Trace)
[2022-10-30 16:47] LABS: Bacteria Urine None Seen (None Seen); Squamous Epithelial Cell Urine >20 /HPF (0-2); UACC Culture Trigger YES; WBC Urine >50 /HPF (0-5)
== END 2022-10-30 11:22 | disposition home or self-care (01) ==
LOC: HO.CT 11:21
PROVIDERS: PCP Internal Medicine; Visit Provider Internal Medicine
DX: N20.0 Calculus of kidney (principal)
CPT/HCPCS: 74176; 81001; 87086; 87088; 87186

== ENCOUNTER 2022-11-13 10:52 | Outpatient (REF) | payer OTHER, SELFPAY ==
[2022-11-13 11:37] LABS: Appearance Urine Clear; Color Urine Yellow; Glucose Urine UA >=1000 mg/dL (Negative); Leukocyte Esterase Urine Negative (Negative); Nitrite Urine Negative (Negative); PH 5.5 (5.0-9.0); Specific Gravity - Urine >= 1.030 (1.005-1.025); UMIC TRIGGER UACC YES; Urine Blood Negative (Negative); Urine Ketones 15 mg/dL (Negative); Urine Protein Trace mg/dL (Neg-Trace)
[2022-11-13 11:42] LABS: Bacteria Urine None Seen (None Seen); Hyaline Casts Urine 0-2 /LPF (0-2); RBC Urine 0-2 /HPF (0-2); Squamous Epithelial Cell Urine 0-2 /HPF (0-2); WBC Urine 0-5 /HPF (0-5)
== END 2022-11-13 10:53 | disposition home or self-care (01) ==
LOC: HO.LNP 10:52
PROVIDERS: Visit Provider Internal Medicine
DX: N39.0 Urinary tract infection, site not specified (principal)
CPT/HCPCS: 81001

== ENCOUNTER 2022-12-29 11:45 | Outpatient (REF) | payer OTHER, SELFPAY ==
[2022-12-29 11:50] LABS: MANUAL DIFF FLAG NO
[2022-12-29 12:17] LABS: Basophils Absolute Auto 0.1 X10*3/uL (0.0-0.2); Basophils Percent Auto 0.8 % (0-2); Eosinophils Absolute Auto 0.1 X10*3/uL (0.0-0.4); Eosinophils Percent Auto 2.2 % (0-4); Hemoglobin 14.7 g/dl (12.0-16.0); Imm Gran Abs Auto 0.02 X10*3/uL (0.00-0.03); Imm Gran Pct Auto 0.3 % (0.0-0.4); Lymphocytes Absolute Auto 2.2 X10*3/uL (1.2-4.9); Lymphocytes Percent Auto 35.3 % (20-40); Mean Corpuscular HGB Conc 32.7 g/dl (31.0-35.0); Mean Corpuscular Hemoglobin 28.8 pg (27.0-33.0); Mean Corpuscular Volume 88.1 fL (80.0-98.0); Mean Platelet Volume 10.5 fL (9.4-12.3); Monocytes Absolute Auto 0.3 X10*3/uL (0.1-1.2); Monocytes Percent Auto 5.2 % (2-11); Neutrophils Absolute Auto 3.6 x10*3/uL (2.0-8.3); Neutrophils Percent Auto 56.2 % (45-73); Platelet Count 324 X10*3/uL (160-400); Red Blood Count 5.11 X10*6/uL (4.20-5.50); Red Cell Distribution Width 12.4 % (11.0-16.0); White Blood Count 6.4 X10*3/uL (4.8-10.8)
[2022-12-29 12:25] LABS: Appearance Urine Cloudy; Color Urine Yellow; Glucose Urine UA 100 mg/dL (Negative); Leukocyte Esterase Urine Small (1+) (Negative); Nitrite Urine Negative (Negative); Specific Gravity - Urine 1.025 (1.005-1.025); UMIC TRIGGER UACC YES; Urine Blood Negative (Negative); Urine Ketones Negative (Negative); Urine Protein 100 (2+) mg/dL (Neg-Trace)
[2022-12-29 12:36] LABS: Estimated Average Glucose 200 mg/dL; Hemoglobin A1c % 8.6 %
[2022-12-29 12:44] LABS: Bacteria Urine 1+ (None Seen); Calcium Oxalate Crystals Urine Present; Hyaline Casts Urine 0-2 /LPF (0-2); Squamous Epithelial Cell Urine >20 /HPF (0-2); UACC Culture Trigger YES; WBC Clumps Urine Present; WBC Urine 21-50 /HPF (0-5)
[2022-12-29 12:57] LABS: Alanine Aminotransferase 16 U/L (0-31); Albumin Level 3.9 g/dL (3.5-5.0); Alkaline Phosphatase 95 U/L (39-117); Anion Gap 12 (12-20); Aspartate Amino Transferase 20 U/L (5-31); Bilirubin Total 1.3 mg/dL (0.0-1.0); Blood Urea Nitrogen 18 mg/dL (9-16); Calcium 9.7 mg/dL (8.4-10.2); Carbon Dioxide 27 mmol/L (22-29); Chloride 106 mmol/L (96-108); Cholesterol 193 mg/dL; Estimated Glomerular Filt Rate > 60; Glucose Fasting 173 mg/dL (60-99); HDL Cholesterol 56 mg/dL; LDL Cholesterol Calculated 125 mg/dl; Potassium 4.6 mmol/L (3.3-5.1); Sodium 140 mmol/L (135-145); Total Protein 6.4 g/dL (6.5-8.0); Triglycerides 64 mg/dL; Vitamin D 25-OH Total 22.8 ng/mL (>30)
[2022-12-29 13:08] LABS: Microalbum/Creatinine Ratio Ur 340.1 ug/mg cr
== END 2022-12-29 11:46 | disposition home or self-care (01) ==
LOC: HO.LNP 11:45
PROVIDERS: Visit Provider Internal Medicine
DX: Z00.00 Encounter for general adult medical examination without abnormal findings (principal); I10 Essential (primary) hypertension; E78.00 Pure hypercholesterolemia, unspecified; E11.9 Type 2 diabetes mellitus without complications; E55.9 Vitamin D deficiency, unspecified; D72.820 Lymphocytosis (symptomatic); R82.90 Unspecified abnormal findings in urine
CPT/HCPCS: 80053; 80061; 81001; 82043; 82306; 83036; 85025; 87086

== ENCOUNTER 2023-01-11 10:58 | Emergency (ER) | payer OTHER, SELFPAY ==
--- NOTE | ~2023-01-11 | XR_ITS ---
EXAMINATION: XR SACRUM AND COCCYX CLINICAL INFORMATION: Fall, pain COMPARISON: None available. TECHNIQUE: 2 views of the sacrum and 2 views of the coccyx were obtained. FINDINGS: There are no fractures. No bone, joint or soft tissue abnormality is demonstrated. XR/XR sacrum coccyx min 2V IMPRESSION: Unremarkable examination.
--- NOTE | 2023-01-11 12:29 | ED.FALL ---
HPI - Fall General Chief Complaint: Fall <Sejal Marinelli NP - Last Filed: 01/11/23 12:36> Stated Complaint: Fall/Fx tailbone? <Sejal Marinelli NP - Last Filed: 01/11/23 12:36> Time Seen by Provider: 01/11/23 12:41 <Sejal Marinelli NP - Last Filed: 01/11/23 12:36> Source: patient <GIOVANNY Brewster - Last Filed: 01/11/23 13:50> Mode of arrival: ambulatory <GIOVANNY Brewster - Last Filed: 01/11/23 13:50> Limitations: no limitations <GIOVANNY Brewster Last Filed: 01/11/23 13:50> History of Present Illness HPI Narrative: Patient is a 62 year old assigned female at with a history of diabetes presenting to the emergency department today with low back pain. Patient states that she had a mechanical fall yesterday landing on her buttocks. Patient denies any loss of consciousness, head strike, dizziness, lightheadedness, abdominal pain, nausea, vomiting, fever, chills, blurry vision, double vision, loss of vision, chest pain, difficulty breathing, shortness of breath, back pain, night sweats, pain with urination, increased urinary frequency, increased urinary urgency, blood in her urine or stool, syncope or a near syncopal episode, bowel incontinence, bladder incontinence, bowel retention, bladder retention, or any other complaints at this time. <GIOVANNY Brewster - Last Filed: 01/11/23 13:50> MD complaint: fall <GIOVANNY Brewster Last Filed: 01/11/23 13:50> Onset (ago): day(s) (1) <GIOVANNY Brewster - Last Filed: 01/11/23 13:50> Fall from: standing <GIOVANNY Brewster Last Filed: 01/11/23 13:50> Place fall occurred: home <GIOVANNY Brewster Last Filed: 01/11/23 13:50> Loss of consciousness: none <GIOVANNY Brewster Last Filed: 01/11/23 13:50> Location of injury: buttocks <GIOVANNY Brewster Last Filed: 01/11/23 13:50> Related Data Home Medications: Home Medications Medication Instructions Recorded Confirmed albuterol sulfate 90 mcg/actuation 2 puff inhalation Q4H PRN 12/05/21 12/24/21 aerosol inhaler Shortness Of Breath amlodipine 5 mg tablet 1 tab PO DAILY 12/05/21 02/24/22 sertraline 100 mg tablet 1 tab PO DAILY 12/05/21 12/24/21 blood sugar diagnostic (Contour 05/27/22 Next Test Strips) blood-glucose meter (Contour Next 05/27/22 Meter) insulin glargine 100 unit/mL (3 40 unit subcut QPM 05/27/22 mL) subcutaneous pen (Lantus Solostar U-100 Insulin) Previous Rx's Medication Instructions Recorded pen needle, diabetic 32 gauge x #125 ea 12/24/21 532 (BD Ultra-Fine Tammy Pen Needle) pen needle, diabetic 32 gauge x #150 ea 12/25/21 532 (BD Ultra-Fine Tammy Pen Needle) glucagon 3 mg/actuation nasal 3 mg intranasal ONCE severe 02/24/22 spray (Baqsimi) hypoglycemia 30 days #2 ea lisinopril 20 1 tab PO BID 90 days #180 tabs 02/24/22 mg-hydrochlorothiazide 25 mg tablet pen needle, diabetic 31 gauge x #150 ea 02/24/22 3/16 (BD Ultra-Fine Mini Pen Needle) rosuvastatin 40 mg tablet 40 mg PO DAILY #90 tabs 02/24/22 Humalog KwikPen Insulin 100 10 - 22 unit (0.1 - 0.22 mL) 06/01/22 unit/mL subcutaneous (insulin subcut TID 25 days #15 mL lispro) insulin pump cartridge,automated #1 ea 06/29/22 dose,BT with controller subcutaneous (Omnipod 5 G6 Intro Kit (Gen 5) subcutaneous cartridge with controller) insulin pump cartridge,automated #1 ea 07/08/22 dose,BT with controller subcutaneous (Omnipod 5 G6 Intro Kit (Gen 5) subcutaneous cartridge with controller) blood-glucose sensor (Dexcom G6 #3 ea 07/13/22 Sensor device) blood-glucose transmitter (Dexcom #1 ea 07/13/22 G6 Transmitter device) ezetimibe 10 mg tablet (Zetia) 10 mg PO DAILY #30 tabs 08/26/22 <Sejal Marinelli NP - Last Filed: 01/11/23 12:36> Allergies/Adverse Reactions: Allergies Allergy/AdvReac Type Severity Reaction Status Date / Time Penicillins [PENICILLINS] Allergy Severe RASH Verified 01/11/23 12:30 Sulfa (Sulfonamide Allergy Severe THROMBOCYTOPENIA, Verified 08/27/22 08:02 Antibiotics) severe [SULFA (SULFONAMIDE ANTIBIOTICS)] penicillin V Allergy Unknown rash Verified 01/11/23 12:30 <Sejal Marinelli NP - Last Filed: 01/11/23 12:36> Review of Systems Constitutional: Constitutional: Reports no additional constitutional complaints, Denies chills, Denies fever(s) and Denies night sweats <GIOVANNY Brewster - Last Filed: 01/11/23 13:50> Eyes: Eyes: Reports no additional eye complaints, Denies blurry vision, Denies change in vision, Denies diplopia, Denies eye discharge, Denies loss of vision and Denies eye pain <GIOVANNY Brewster - Last Filed: 01/11/23 13:50> ENT: Denies dizziness <GIOVANNY Brewster - Last Filed: 01/11/23 13:50> Cardiovascular: Cardiovascular: Reports no additional cardiovascular complaints, Denies chest pain, Denies lightheadedness, Denies Loss of Consciousness and Denies dyspnea <GIOVANNY Brewster - Last Filed: 01/11/23 13:50> Respiratory: Respiratory: Reports no additional respiratory complaints and Denies dyspnea <GIOVANNY Brewster - Last Filed: 01/11/23 13:50> Gastrointestinal: Gastrointestinal: Reports no additional gastrointestinal complaints, Denies abdominal pain, Denies melena, Denies hematochezia, Denies change in bowel habits and Denies change in stool character <GIOVANNY Brewster - Last Filed: 01/11/23 13:50> Genitourinary: Genitourinary: Denies hematuria, Denies urinary frequency, Denies dysuria, Denies urinary incontinence, Denies urinary hesitancy and Denies urinary urgency <GIOVANNY Brewster Last Filed: 01/11/23 13:50> Musculoskeletal: Musculoskeletal: Reports no additional musculoskeletal complaints, Denies numbness and Denies tingling <GIOVANNY Brewster - Last Filed: 01/11/23 13:50> Comments: buttock pain <GIOVANNY Brewster - Last Filed: 01/11/23 13:50> Neurologic: Denies dizziness, Denies loss of vision, Denies numbness and Denies tingling <GIOVANNY Brewster - Last Filed: 01/11/23 13:50> Psychiatric: Psychiatric: Reports no additional psychiatric complaints <GIOVANNY Brewster - Last Filed: 01/11/23 13:50> Endocrine: Endocrine: Reports no additional endocrine complaints <GIOVANNY Brewster - Last Filed: 01/11/23 13:50> Hematologic/Lymphatic: Hematologic/Lymphatic: Reports no additional hematologic/lymphatic complaints <GIOVANNY Brewster - Last Filed: 01/11/23 13:50> Allergic/Immunologic: Allergic/Immunologic: Reports no additional allergic/immunologic complaints <GIOVANNY Brewster - Last Filed: 01/11/23 13:50> PMFSH Past Medical History Attestation statement: The following information was validated with the patient. 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 HLD (hyperlipidemia) Hypertension Nephrolithiasis <Sejal Marinelli NP - Last Filed: 01/11/23 12:36> Surgical History: Surgical History History of knee replacement <Sejal Marinelli NP - Last Filed: 01/11/23 12:36> Family History Family History: Family History Family/Other No known health problems <Sejal Marinelli NP - Last Filed: 01/11/23 12:36> Social History Social History: Social History Household Members: Spouse Housing: House Do you presently have visiting nurse or other home services: No Unable to assess alcohol history related to: Unknown Alcohol intake: never Patient Tobacco Use Status: Never used Tobacco Advance Directives: No Advance Directives Information Provided: Yes service: No Current occupational status: disabled <Sejal Marinelli NP - Last Filed: 01/11/23 12:36> Physical Exam Vital Signs: Vital Signs: Last Vital Signs Temp 98.0 F 01/11/23 12:30 Pulse 94 01/11/23 12:30 Resp 18 01/11/23 12:30 BP 190/110 H 01/11/23 12:30 Pulse Ox 99 01/11/23 12:30 O2 Del Method Room Air 01/11/23 12:30 BMI result Body Mass Index 34.8 <Sejal Marinelli NP - Last Filed: 01/11/23 12:36> Vital Signs: Last Vital Signs Temp 98.0 F 01/11/23 12:30 Pulse 94 01/11/23 12:30 Resp 18 01/11/23 12:30 BP 190/110 H 01/11/23 12:30 Pulse Ox 99 01/11/23 12:30 O2 Del Method Room Air 01/11/23 12:30 BMI result Body Mass Index 34.8 <GIOVANNY Brewster - Last Filed: 01/11/23 13:50> Const: General: cooperative, no acute distress, alert and awake <GIOVANNY Brewster - Last Filed: 01/11/23 13:50> Nutritional Appearance: well nourished <GIOVANNY Brewster - Last Filed: 01/11/23 13:50> Orientation/consciousness: patient oriented x3 <GIOVANNY Brewster - Last Filed: 01/11/23 13:50> Limitations: no limitations <GIOVANNY Brewster - Last Filed: 01/11/23 13:50> HEENT: Head: Yes normal to inspection and Yes atraumatic <GIOVANNY Brewster - Last Filed: 01/11/23 13:50> Ears: hearing grossly normal bilaterally and external ears normal <GIOVANNY Brewster Last Filed: 01/11/23 13:50> General nose exam: Normal external nose present, no nasal discharge noted and no epistaxis <Shanta Osorio [facility] Last Filed: 01/11/23 13:50> Face and sinus: Yes normal facial exam, No abrasion and No laceration <Shanta Chamberlaintara [facility] Last Filed: 01/11/23 13:50> Mouth: Normal oral and palatal mucosa present, no drooling and no muffled voice <Shanta Chamberlaintara [place] - Last Filed: 01/11/23 13:50> Eyes: General: appearance normal, both eyes and all related structures <Shanta Osorio [facility] Last Filed: 01/11/23 13:50> Periorbital: periorbital findings normal <Shanta Chamberlaintara [place] - Last Filed: 01/11/23 13:50> Eyelids: Yes eyelids normal <Shanta Chamberlaintara [facility] Last Filed: 01/11/23 13:50> Conjunctivae: conjunctivae normal <Shanta Chamberlaintara [place] - Last Filed: 01/11/23 13:50> Pupils: Equal, round and reactive pupils present <Shanta Chamberlaintara [facility] Last Filed: 01/11/23 13:50> EOM: EOMs intact bilaterally <Shanta Chamberlaintara [facility] Last Filed: 01/11/23 13:50> Neck: Neck: Yes normal visual inspection, Yes full ROM and Yes no lymphadenopathy <Shanta Chamberlaintara [facility] Last Filed: 01/11/23 13:50> Chest: Chest palpation & inspection: normal inspection of the chest <Shantaabdirizak Chamberlaintara [facility] Last Filed: 01/11/23 13:50> Resp: Effort & Inspection: normal respiratory effort and able to speak in complete sentences <Shanta Chamberlaintara [facility] Last Filed: 01/11/23 13:50> Auscultation: clear to auscultation bilaterally <Shantaabdirizak Chamberlaintara [facility] Last Filed: 01/11/23 13:50> Cardio: Rate: regular rate <Shantaabdirizak Chamberlaintara [facility] Last Filed: 01/11/23 13:50> Rhythm: regular rhythm <Shantaabdirizak Chamberlaintara [facility] Last Filed: 01/11/23 13:50> GI: Inspection: Yes normal to inspection <Shanta Osorio [place] - Last Filed: 01/11/23 13:50> : General: Yes no CVA tenderness <Shanta Osorio [place] - Last Filed: 01/11/23 13:50> Back/Spine/Pelvis: Back: no CVA tenderness <Shanta Osorio [place] - Last Filed: 01/11/23 13:50> Cervical Spine: normal cervical lordosis and cervical ROM normal <Shanta Osorio [place] - Last Filed: 01/11/23 13:50> Thoracic/Lumbar Spine: thoracic and lumbar spine normal to inspection and thoraco-lumbar ROM normal <Shanta Osorio [place] - Last Filed: 01/11/23 13:50> Pelvis: no pain with anterior-posterior compression <Shanta Chamberlaintara [place] - Last Filed: 01/11/23 13:50> Neuro: General: patient oriented x3 and moves all extremities <Shanta Osorio [place] - Last Filed: 01/11/23 13:50> Cranial nerves: Yes Equal, round and reactive pupils present <Shanta Chamberlaintara [place] - Last Filed: 01/11/23 13:50> Cognition (Neuro): normal cognition <Shanta Osorio [place] - Last Filed: 01/11/23 13:50> Motor exam (neuro): 5/5 motor strength present throughout <Shanta Chamberlaintara [place] - Last Filed: 01/11/23 13:50> Sensory Exam: Normal double simultaneous stimulation for sensation <Shanta Osorio [place] - Last Filed: 01/11/23 13:50> Coordination: oxzdsr-[id number] test normal <Shanta Chamberlaintara [place] - Last Filed: 01/11/23 13:50> Extrem: General: Yes normal to inspection, Yes full ROM and Yes capillary refill normal <Shanta Chamberlaintara [place] - Last Filed: 01/11/23 13:50> Psych: Appearance: grossly normal <Shantaabdirizak Chamberlaintara [place] - Last Filed: 01/11/23 13:50> Mental Status: mental status grossly normal <Shanta ChamberlainGIOVANNY pacheco - Last Filed: 01/11/23 13:50> Affect: normal affect <Shanta ChamberlainGIOVANNY pacheco - Last Filed: 01/11/23 13:50> Attitude: cooperative <Shantaabdirizak Chamberlaintara [place] - Last Filed: 01/11/23 13:50> Thought process: Normal thought process present <GIOVANNY Brewster - Last Filed: 01/11/23 13:50> Thought content: Normal thought content present <GIOVANNY Brewster - Last Filed: 01/11/23 13:50> Insight: Good insight present (Psych) <GIOVANNY Brewster - Last Filed: 01/11/23 13:50> Course Course Course Narrative: This is a rapid medical exam. Deferred additional HPI, ROS, PE to primary provider. 62 yo female with history of DM, HTN here with mechanical fall landing on her buttocks here with pain in her coccyx. No hitting of the head or LOC. Will check x-ray. Hypertensive in triage. Did not take any of her home medications this morning <Sejal Marinelli NP - Last Filed: 01/11/23 12:36> Medical Decision Making Medical Decision Making MDM Narrative: Patient is a 62 year old assigned female at with a history of DM presenting to the emergency department today with buttock pain. Patient's physical exam was unremarkable. Patient's sacrum/coccyx x-ray showed no acute process. I explained my physical exam findings as well as all test results to the patient. I answered all questions asked by the patient. I stressed the importance of the patient taking her medication as prescribed. I stressed the importance of the patient following up with her primary care provider. I stressed the importance of the patient returning to the emergency department immediately if her symptoms were to worsen or if she were to develop any dizziness, shortness of breath, difficulty breathing, chest pain, blurry vision, loss of vision, nausea, vomiting, abdominal pain, fever, chills, back pain, or any other complaints. Patient verbalized agreement and understanding with this treatment plan and discharge. <GIOVANNY Brewster - Last Filed: 01/11/23 13:50> Differential Diagnosis Differential Diagnoses: The differential diagnosis associated with the presentation includes <GIOVANNY Brewster - Last Filed: 01/11/23 13:50> contusion of the coccyx <GIOVANNY Brewster - Last Filed: 01/11/23 13:50> Independent Interpretation I performed an independent interpretation of an: Plain X-Ray <GIOVANNY Brewster - Last Filed: 01/11/23 13:50> Interpretation: My interpretation is in agreement with the radiologist's impression of this imaging study. EXAMINATION: XR SACRUM AND COCCYX CLINICAL INFORMATION: Fall, pain COMPARISON: None available. TECHNIQUE: 2 views of the sacrum and 2 views of the coccyx were obtained. FINDINGS: There are no fractures. No bone, joint or soft tissue abnormality is demonstrated. XR/XR sacrum coccyx min 2V IMPRESSION: Unremarkable examination. Dictated By: Chon Garcia MD Signed By: Electronically signed by Chon Garcia MD 01/11/23 8502 <GIOVANNY Brewster - Last Filed: 01/11/23 13:50> Discharge Plan Discharge Clinical Impression: Coccyx contusion <Sejal Marinelli NP - Last Filed: 01/11/23 12:36> Patient Disposition: Home, Self-Care <Sejal Marinelli NP - Last Filed: 01/11/23 12:36> Instructions: Contusion in Adults (ED) <Sejal Marinelli NP - Last Filed: 01/11/23 12:36> Additional Instructions: Follow up with your primary care provider. Return to the emergency department immediately if your symptoms worsen or if you develop any dizziness, shortness of breath, difficulty breathing, chest pain, blurry vision, loss of vision, nausea, vomiting, abdominal pain, fever, chills, back pain, or any other complaints. <Sejal Marinelli NP - Last Filed: 01/11/23 12:36> Prescriptions: No Action (DME) pen needle, diabetic [BD Ultra-Fine Tammy Pen Needle] 32 gauge x 5/32 needle See Rx Instructions .ROUTE .MEDSUPPLY Qty: 150 11RF Rx Instructions: As directed five times a day insulin lispro [Humalog KwikPen Insulin] 100 unit/mL insulin pen 10 - 22 unit SUBCUT TID 25 Days Qty: 15 6RF (DME) Omnipod 5 G6 Intro Kit (Gen 5) Cartridge See Rx Instructions .Route Qty: 1 4RF Rx Instructions: As directed (DME) Omnipod 5 G6 Intro Kit (Gen 5) Cartridge See Rx Instructions .Route Qty: 1 0RF Rx Instructions: As directed (DME) Dexcom G6 Sensor Device See Rx Instructions .Route Qty: 3 4RF Rx Instructions: As directed (DME) Dexcom G6 Transmitter Device See Rx Instructions .Route Qty: 1 4RF Rx Instructions: As directed ezetimibe [Zetia] 10 mg tablet 10 mg PO DAILY Qty: 30 4RF sertraline 100 mg tablet 1 tab PO DAILY amlodipine 5 mg tablet 1 tab PO DAILY albuterol sulfate 90 mcg/actuation HFA aerosol inhaler 2 puff inhalation Q4H PRN (Reason: Shortness Of Breath) (DME) pen needle, diabetic [BD Ultra-Fine Tammy Pen Needle] 32 gauge x 5/32 needle See Rx Instructions .ROUTE .MEDSUPPLY Qty: 125 12RF Rx Instructions: As directed four times a day Baqsimi 3 mg/actuation spray,non-aerosol 3 mg intranasal ONCE 30 Days Qty: 2 6RF Rx Instructions: [place] once for severe hypoglycemia when patient cannot self-treat with glucose. Afterwards turn on side. May repeat after 15 minutes if patient does not respond. (DME) pen needle, diabetic [BD Ultra-Fine Mini Pen Needle] 31 gauge x 3/16 needle See Rx Instructions .Route Qty: 150 3RF Rx Instructions: As directed 4 times a day lisinopril-hydrochlorothiazide 20-25 mg tablet 1 tab PO BID 90 Days Qty: 180 1RF rosuvastatin 40 mg tablet 40 mg PO DAILY Qty: 90 1RF Lantus Solostar U-100 Insulin 100 unit/mL (3 mL) insulin pen 40 unit subcut QPM Rx Instructions: (give in 2 injections of 25 units) (DME) blood-glucose meter [Contour Next Meter] Misc See Rx Instructions .Route Rx Instructions: As directed (DME) Contour Next Test Strips Strip See Rx Instructions .Route Rx Instructions: As directed <Sejal Marinelli NP - Last Filed: 01/11/23 12:36> Referrals: Ilir Hodge MD [Primary Care Provider] - <Sejal Marinelli NP - Last Filed: 01/11/23 12:36> Print Language: Egyptian <Sejal Marinelli NP - Last Filed: 01/11/23 12:36>
[2023-01-11 12:30] VITALS: BP 190/110; PULSE 94; RESP 18; TEMP 36.7; O2SAT 99; BMI 34.8
== END 2023-01-11 13:52 | disposition home or self-care (01) ==
PROVIDERS: Emergency Provider Student in an Organized Health Care Education/Training Program; PCP Internal Medicine
DX: S30.0XXA Contusion of lower back and pelvis, initial encounter (principal); M54.50 Low back pain, unspecified; M53.3 Sacrococcygeal disorders, not elsewhere classified; W01.0XXA Fall on same level from slipping, tripping and stumbling without subsequent striking against object, initial encounter; Y93.9 Activity, unspecified; Y92.9 Unspecified place or not applicable; Y99.9 Unspecified external cause status; Z79.899 Other long term (current) drug therapy
CPT/HCPCS: 72220; 99282; 99283

== ENCOUNTER → 2023-01-20 09:35 | Outpatient (BNVA) | payer OTHER, SELFPAY | PROVIDERS: PCP Internal Medicine; Visit Provider Physician Assistant ==

== ENCOUNTER 2023-02-22 19:11 | Outpatient (REF) | payer OTHER, SELFPAY ==
--- NOTE | ~2023-02-22 | MR_ITS ---
EXAMINATION: MRI RIGHT SHOULDER WITHOUT CONTRAST CLINICAL INFORMATION: Injury. COMPARISON: X-ray the left shoulder 01/2022. TECHNIQUE: MRI of the left shoulder was performed on a high-field 1.5 Chantelle MRI scanner. FINDINGS: ROTATOR CUFF: SUPRASPINATUS: There is a focal insertional partial tear of the anterior supraspinatus tendon. The tear involves over 50% of tendon thickness either intrasubstance or bursal-sided. This measures 6 mm transverse and 5 mm AP. There is some additional heterogeneity throughout the remaining tendon, compatible with tendinosis and perhaps additional small areas of partial tearing, but no measurable defect or tendon retraction. Minimal cystic change is also present at the musculotendinous junction, likely a consequence of minimal partial tearing. There is no atrophy or fatty infiltration of the muscle. The remaining rotator cuff muscles and tendons are normal. BICEPS TENDON: Normal. CORACOACROMIAL ARCH: There is ropt-vm-afozfyus hypertrophic osteoarthritis of the acromioclavicular joint. BURSA: Trace fluid in subacromial subdeltoid bursa. LABRUM/CAPSULE: Normal. GLENOHUMERAL JOINT: There are marginal osteophytes along the inferior aspect of the humeral head and glenoid. There is subchondral cystic change along the posterior lower quadrant of the glenoid. Mild scattered cartilage heterogeneity in the glenoid. There is a focal area of up to high-grade cartilage loss in the superior medial aspect of the humeral head extending over 2 cm transverse and at least 1 cm AP. Overall [id number] arthrosis. There is a mild joint effusion and synovitis. MR/MR shoulder LT wo con IMPRESSION: 1. Small insertional partial tear of the anterior supraspinatus tendon. Additional scattered supraspinatus tendinosis and perhaps additional small areas of partial tearing but no measurable defect or tendon retraction. 2. Ylnl-pf-zotfzuya arthrosis of the acromioclavicular joint. 3. Qqmt-yq-ltzwwgok arthrosis of the glenohumeral joint. Mild joint effusion and synovitis.
== END 2023-02-22 19:12 | disposition home or self-care (01) ==
LOC: HO.MRI 19:11
PROVIDERS: PCP Internal Medicine; Visit Provider Physician Assistant
DX: S46.002A Unspecified injury of muscle(s) and tendon(s) of the rotator cuff of left shoulder, initial encounter (principal)
CPT/HCPCS: 73221

== ENCOUNTER 2023-03-16 09:07 | Emergency (ER) | payer OTHER, SELFPAY ==
--- NOTE | ~2023-03-16 | CT_ITS ---
EXAMINATION: CT CERVICAL SPINE WITHOUT CONTRAST CLINICAL INFORMATION: Posterior neck pain. COMPARISON: None. TECHNIQUE: Contiguous helical images of the cervical spine were obtained without IV contrast. Multiplanar reconstructions were performed. This CT examination was performed using dose optimization techniques as appropriate, variously including the following: *Automated exposure control *Adjustment of mA and/or kV according to patient size (this includes techniques or standardized protocols for targeted exams where dose is matched to indication/reason for exam; i.e. extremities or head) *Use of iterative reconstruction technique DLP: 534 mGy-cm FINDINGS: There is anatomic alignment of the vertebral bodies and posterior elements. The atlantoaxial and atlantooccipital articulations are intact. Vertebral body heights are maintained. There is multilevel intervertebral disc space narrowing with endplate osteophyte formation and facet arthropathy. Ossification along the posterior longitudinal ligament. There is also calcification of the ligamentum flavum diffusely. Bilateral bony neuroforaminal narrowing at the C5-C6 level. No evidence of acute fracture. No prevertebral soft tissue swelling. There is no cervical lymphadenopathy. The visualized thyroid gland is unremarkable. The visualized base of the brain is unremarkable. The visualized lung apices are clear. CT/CT cervical spine wo IV con IMPRESSION: No evidence for acute injury to the cervical spine. Moderate degenerative changes throughout the cervical spine.
[2023-03-16 09:18] VITALS: BP 194/114; PULSE 89; RESP 18; TEMP 36.3; O2SAT 94; BMI 33.7
[2023-03-16] MEDS: predniSONE 20 MG TABLET 60 MG PO (12:38)
[2023-03-16] MEDS: Ketorolac Tromethamine 30 MG/ML VIAL IM (12:38)
--- NOTE | 2023-03-16 12:38 | ED_ITS ---
HPI - General Adult General Chief complaint: Neck Pain/Injury Stated complaint: Back pain Time Seen by Provider: 03/16/23 12:13 Source: patient Mode of arrival: ambulatory Limitations: no limitations History of Present Illness HPI narrative: 62 yold female presents to the ED for posterior neck pain for the past 3 weeks. Patient states posterior neck pain is worse on movement. patient denies any headache, fever, chills, nausea, vomtting, photophobia, or recent trauma. patient denies any IV drug use or urinary/bowel incontience. patient denies any upper extremities paralysis. patient did not take her blood pressure meds this morning. patient denies any recent chiropractor work on neck. Denies any slurred speech, loss of vision, facial droop, paralysis of extremity, dizziness, nausea, or vomiting. Related Data Home Medications Medication Instructions Recorded Confirmed albuterol sulfate 90 mcg/actuation 2 puff inhalation Q4H PRN 12/05/21 01/20/23 aerosol inhaler Shortness Of Breath amlodipine 5 mg tablet 1 tab PO DAILY 12/05/21 01/20/23 sertraline 100 mg tablet 1 tab PO DAILY 12/05/21 01/20/23 blood sugar diagnostic (Contour 05/27/22 01/20/23 Next Test Strips) blood-glucose meter (Contour Next 05/27/22 01/20/23 Meter) insulin glargine 100 unit/mL (3 40 unit subcut QPM 05/27/22 01/20/23 mL) subcutaneous pen (Lantus Solostar U-100 Insulin) Previous Rx's Medication Instructions Recorded pen needle, diabetic 32 gauge x #125 ea 12/24/21 (BD Ultra-Fine Tammy Pen Needle) pen needle, diabetic 32 gauge x #150 ea 12/25/21 (BD Ultra-Fine Tammy Pen Needle) glucagon 3 mg/actuation nasal 3 mg intranasal ONCE severe 02/24/22 spray (Baqsimi) hypoglycemia 30 days #2 ea lisinopril 20 1 tab PO BID 90 days #180 tabs 02/24/22 mg-hydrochlorothiazide 25 mg tablet pen needle, diabetic 31 gauge x #150 ea 02/24/22 3/16 (BD Ultra-Fine Mini Pen Needle) rosuvastatin 40 mg tablet 40 mg PO DAILY #90 tabs 02/24/22 Humalog KwikPen Insulin 100 10 - 22 unit (0.1 - 0.22 mL) 06/01/22 unit/mL subcutaneous (insulin subcut TID 25 days #15 mL lispro) insulin pump cartridge,automated #1 ea 06/29/22 dose,BT with controller subcutaneous (Omnipod 5 G6 Intro Kit (Gen 5) subcutaneous cartridge with controller) insulin pump cartridge,automated #1 ea 07/08/22 dose,BT with controller subcutaneous (Omnipod 5 G6 Intro Kit (Gen 5) subcutaneous cartridge with controller) ezetimibe 10 mg tablet (Zetia) 10 mg PO DAILY #30 tabs 08/26/22 blood-glucose sensor (Dexcom G6 #3 ea 01/28/23 Sensor device) blood-glucose transmitter (Dexcom #1 ea 01/28/23 G6 Transmitter device) ketorolac 10 mg tablet 10 mg PO QID PRN pain 5 days #20 03/16/23 tabs prednisone 20 mg tablet 40 mg PO DAILY 5 days #10 tabs 03/16/23 Allergies Allergy/AdvReac Type Severity Reaction Status Date / Time Penicillins [PENICILLINS] Allergy Severe RASH Verified 01/20/23 09:42 Sulfa (Sulfonamide Allergy Severe THROMBOCYTOPENIA, Verified 01/20/23 09:42 Antibiotics) severe [SULFA (SULFONAMIDE ANTIBIOTICS)] penicillin V Allergy Unknown rash Verified 01/20/23 09:42 Review of Systems Review of Systems: posterior neck pain Yes all other systems are reviewed and are negative [facility] Past Medical History Medical History Asthma Diabetes 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 HLD (hyperlipidemia) Hypertension Nephrolithiasis Surgical History History of knee replacement Family History Family History Family/Other No known health problems Social History Social History Household Members: Spouse Housing: House Do you presently have visiting nurse or other home services: No Unable to assess alcohol history related to: Unknown Alcohol intake: never Patient Tobacco Use Status: Never used Tobacco Advance Directives: No Advance Directives Information Provided: Yes service: No Current occupational status: disabled Physical Exam ED Vital Signs: Vital Signs - 24 hr 03/16/23 09:18 03/16/23 14:27 03/16/23 14:31 Temperature 97.4 F 98.7 F Pulse Rate 89 120 H 121 H Respiratory Rate 18 16 Blood Pressure 194/114 H 208/89 H 198/82 H Pulse Oximetry 94 95 Oxygen Delivery Method Room Air Room Air 03/16/23 15:33 03/16/23 17:38 Temperature Pulse Rate 74 Respiratory Rate 16 Blood Pressure 218/107 H 149/74 H Pulse Oximetry 98 Oxygen Delivery Method Room Air BMI result Body Mass Index 33.7 Const General: cooperative, healthy appearing, comfortable, no acute distress, well developed, alert, awake and Physically active Orientation/consciousness: oriented to person, oriented to place, oriented to time and patient oriented x3 HENMT Head: Yes normal to inspection, Yes No palpable skull fracture present, Yes normocephalic and Yes atraumatic Ears: hearing grossly normal bilaterally, external ears normal, TM's normal bilaterally, TM normal on the right, TM normal on the left, EAC's normal, mastoids normal and no periauricular adenopathy Eyes General: appearance normal, both eyes and all related structures Neck Neck: Yes normal visual inspection, Yes full ROM, Yes no lymphadenopathy, Yes no meningeal signs, Yes trachea midline, Yes supple, No anterior neck swelling and Yes tender (posterior cervical spine tenderness.) Chest Chest palpation & inspection: normal inspection of the chest and normal palpation of entire chest wall Resp Effort & Inspection: normal respiratory effort and able to speak in complete sentences Auscultation: clear to auscultation bilaterally Cardio Jugular venous distension: no JVD Heart sounds: S1 normal heart sound present and S2 normal heart sound present GI Inspection: Yes normal to inspection and No abdominal wall ecchymosis Palpation (GI): Soft to palpation, not firm, nontender, no guarding and not rigid General: No CVA tenderness and Yes no CVA tenderness Back/Spine/Pelvis Back: no CVA tenderness, No CVA tenderness and No back tenderness Skin General skin exam: no rashes or lesions noted and elasticity normal Neuro General: oriented to person, oriented to place, oriented to time, patient oriented x3, gait normal, tone normal, moves all extremities, Normal light touch and pain sensation, no meningeal signs, no focal motor deficits and CN's II-XI intact bilaterally Extrem General: Yes normal to inspection and Yes full ROM Psych Appearance: grossly normal, well kempt and not disheveled Medications Administered Discontinued Medications Generic Name Dose Route Start Last Admin Trade Name Vicente PRN Reason Stop Dose Admin Clonidine HCl 0.1 mg 03/16/23 14:35 03/16/23 14:39 Clonidine Hcl 0.1 Mg Tablet PO 03/16/23 14:36 0.1 mg ONCE ONE Administration Protocol Ketorolac Tromethamine 30 mg 03/16/23 12:29 03/16/23 12:38 Ketorolac Tromethamine 30 Mg/Ml Vial IM 03/16/23 12:30 30 mg ONCE ONE Administration Labetalol HCl 20 mg 03/16/23 15:46 03/16/23 15:58 Labetalol Hcl 100 Mg/20 Ml Vial IVPUSH 03/16/23 15:47 20 mg ONCE ONE Administration Lisinopril 40 mg 03/16/23 12:30 03/16/23 12:39 Lisinopril 40 Mg Tablet PO 03/16/23 12:31 40 mg ONCE ONE Administration Protocol Morphine Sulfate 4 mg 03/16/23 15:46 03/16/23 15:57 Morphine Sulfate 4 Mg/Ml Cartridge IVPUSH 03/16/23 15:47 4 mg ONCE ONE Administration Protocol Prednisone 60 mg 03/16/23 12:29 03/16/23 12:38 Prednisone 20 Mg Tablet PO 03/16/23 12:30 60 mg ONCE ONE Administration Medical Decision Making Medical Decision Making MDM Narrative: 61-year-old female presents to ED for posterior neck pain for 3 weeks worse on movement. Patient denies any trauma, photophobia, headache, nausea vomiting, fever, or chills. Patient denies any paralysis of extremities, slurred speech, facial droop, or visual changes. patient did not take her blood pressure meds this morning. O2 saturation before discharge 96%. 6:36pm: Patient still had elevated BLood pressure due to neck pain and non- compliance with HTN meds. After being given morphine and labetolol, patient's blood pressure and posterior neck pain improved. Negative for any neuro deficits. patient denies any headache. Patient denies ever having lateral neck pain. patient denies visual changes. Head CT scan not ordered. patient educated to be complaint with HTN meds and explained risks of stroke, [place], and Renal Failure. Differential Diagnosis Differential Diagnoses: The differential diagnosis associated with the presentation includes ( Meningitis, cervical fracture, cervical spine dislocation, spinal epidural abscess, cord compression, carotid dissection/occlussion) Admission/Observation Consideration of admission/observation: Escalation of care including admission/observation considered Lab Data 03/16/23 15:53 03/16/23 15:53 Labs: Lab Results 03/16/23 03/16/23 03/16/23 Range/Units 15:53 15:53 15:53 WBC 7.3 (4.8-10.8) X10*3/uL RBC 5.29 (4.20-5.50) X10*6/uL Hgb 15.4 (12.0-16.0) g/dl Hct 47.0 (37.0-47.0) % MCV 88.8 (80.0-98.0) fL MCH 29.1 (27.0-33.0) pg MCHC 32.8 (31.0-35.0) g/dl RDW 12.5 (11.0-16.0) % Plt Count 291 (160-400) X10*3/uL MPV 10.1 (9.4-12.3) fL Immature Gran % (Auto) 0.3 (0.0-0.4) % Neut % (Auto) 79.3 H (45-73) % Lymph % (Auto) 16.9 L (20-40) % [place] % (Auto) 2.5 (2-11) % Eos % (Auto) 0.5 (0-4) % Baso % (Auto) 0.5 (0-2) % Lymph # (Auto) 1.2 (1.2-4.9) X10*3/uL [place] # (Auto) 0.2 (0.1-1.2) X10*3/uL Eos # (Auto) 0.0 (0.0-0.4) X10*3/uL Baso # (Auto) 0.0 (0.0-0.2) X10*3/uL Abs Immat Gran (auto) 0.02 (0.00-0.03) X10*3/uL Absolute Neuts (auto) 5.8 (2.0-8.3) x10*3/uL Absolute Nucleated RBC 0.000 (0.0-0.012) X10*3/uL Nucleated RBC % (auto) 0.0 (0.0-0.2) /100WBC PT 9.9 L (10.0-13.1) SEC INR 0.9 (0.9-1.1) APTT 26.2 (26.0-36.4) SEC Sodium 139 (135-145) mmol/L Potassium 4.4 (3.3-5.1) mmol/L Chloride 101 (96-108) mmol/L Carbon Dioxide 29 (22-29) mmol/L Anion Gap 13 (12-20) BUN 13 (9-16) mg/dL Creatinine 0.77 (0.5-1.4) mg/dL Estim Creat Clear Calc 77.8 Estimated GFR > 60 Random Glucose 195 H (60-115) mg/dL Calcium 10.2 (8.4-10.2) mg/dL Total Bilirubin 1.3 H (0.0-1.0) mg/dL AST 26 (5-31) U/L ALT 18 (0-31) U/L Alkaline Phosphatase 94 (39-117) U/L Troponin I High Sens (<3.5-17.0) ng/L Total Protein 7.4 (6.5-8.0) g/dL Albumin 4.1 (3.5-5.0) g/dL 03/16/23 03/16/23 Range/Units 15:53 17:52 WBC (4.8-10.8) X10*3/uL RBC (4.20-5.50) X10*6/uL Hgb (12.0-16.0) g/dl Hct (37.0-47.0) % MCV (80.0-98.0) fL MCH (27.0-33.0) pg MCHC (31.0-35.0) g/dl RDW (11.0-16.0) % Plt Count (160-400) X10*3/uL MPV (9.4-12.3) fL Immature Gran % (Auto) (0.0-0.4) % Neut % (Auto) (45-73) % Lymph % (Auto) (20-40) % [place] % (Auto) (2-11) % Eos % (Auto) (0-4) % Baso % (Auto) (0-2) % Lymph # (Auto) (1.2-4.9) X10*3/uL [place] # (Auto) (0.1-1.2) X10*3/uL Eos # (Auto) (0.0-0.4) X10*3/uL Baso # (Auto) (0.0-0.2) X10*3/uL Abs Immat Gran (auto) (0.00-0.03) X10*3/uL Absolute Neuts (auto) (2.0-8.3) x10*3/uL Absolute Nucleated RBC (0.0-0.012) X10*3/uL Nucleated RBC % (auto) (0.0-0.2) /100WBC PT (10.0-13.1) SEC INR (0.9-1.1) APTT (26.0-36.4) SEC Sodium (135-145) mmol/L Potassium (3.3-5.1) mmol/L Chloride (96-108) mmol/L Carbon Dioxide (22-29) mmol/L Anion Gap (12-20) BUN (9-16) mg/dL Creatinine (0.5-1.4) mg/dL Estim Creat Clear Calc Estimated GFR Random Glucose (60-115) mg/dL Calcium (8.4-10.2) mg/dL Total Bilirubin (0.0-1.0) mg/dL AST (5-31) U/L ALT (0-31) U/L Alkaline Phosphatase (39-117) U/L Troponin I High Sens 8.6 8.2 (<3.5-17.0) ng/L Total Protein (6.5-8.0) g/dL Albumin (3.5-5.0) g/dL Independent Interpretation I performed an independent interpretation of an: EKG ( normal sinus rhythm. Ventricular rate 67. [place] interval 182. QRS 70. QTC 414. Negative STEMI) and CT Scan Radiology Impression Discussion of test interpretation with radiology: I have reviewed the radiologist's reading. External Record Review External record reviewed: Other (Prior ED visits) Tests considered The following testing was considered but not selected: head CT, LP Discharge Plan Discharge Clinical Impression: Cervical radiculopathy, Hypertension Patient Disposition: Home, Self-Care Instructions: Cervical Radiculopathy (ED), Hypertension (ED) Additional Instructions: please follow-up with the primary care provider for cervical radiculopathy. You may need MRI as follow-up. Return to the ED for any paralysis of extremities, severe neck pain, headache, photophobia, fever, chills, rash, nausea, vomiting, facial droop, slurred speech, loss of vision, or any other concerning symptoms. Please compliant with your HTN meds. Prescriptions: New prednisone 20 mg tablet 40 mg PO DAILY 5 Days Qty: 10 0RF ketorolac 10 mg tablet 10 mg PO QID PRN (Reason: pain) 5 Days Qty: 20 0RF Rx Instructions: Received 30mg IM toradol in the ED No Action (DME) pen needle, diabetic [BD Ultra-Fine Tammy Pen Needle] 32 gauge x 5/32 needle See Rx Instructions .ROUTE .MEDSUPPLY Qty: 150 11RF Rx Instructions: As directed five times a day insulin lispro [Humalog KwikPen Insulin] 100 unit/mL insulin pen 10 - 22 unit SUBCUT TID 25 Days Qty: 15 6RF (DME) Omnipod 5 G6 Intro Kit (Gen 5) Cartridge See Rx Instructions .Route Qty: 1 4RF Rx Instructions: As directed (DME) Omnipod 5 G6 Intro Kit (Gen 5) Cartridge See Rx Instructions .Route Qty: 1 0RF Rx Instructions: As directed ezetimibe [Zetia] 10 mg tablet 10 mg PO DAILY Qty: 30 4RF (DME) Dexcom G6 Sensor Device See Rx Instructions .Route Qty: 3 4RF Rx Instructions: As directed (DME) Dexcom G6 Transmitter Device See Rx Instructions .Route Qty: 1 4RF Rx Instructions: As directed sertraline 100 mg tablet 1 tab PO DAILY amlodipine 5 mg tablet 1 tab PO DAILY albuterol sulfate 90 mcg/actuation HFA aerosol inhaler 2 puff inhalation Q4H PRN (Reason: Shortness Of Breath) (DME) pen needle, diabetic [BD Ultra-Fine Tammy Pen Needle] 32 gauge x 5/32 needle See Rx Instructions .ROUTE .MEDSUPPLY Qty: 125 12RF Rx Instructions: As directed four times a day Baqsimi 3 mg/actuation spray,non-aerosol 3 mg intranasal ONCE 30 Days Qty: 2 6RF Rx Instructions: [place] once for severe hypoglycemia when patient cannot self-treat with glucose. Afterwards turn on side. May repeat after 15 minutes if patient does not respond. (DME) pen needle, diabetic [BD Ultra-Fine Mini Pen Needle] 31 gauge x 3/16 needle See Rx Instructions .Route Qty: 150 3RF Rx Instructions: As directed 4 times a day lisinopril-hydrochlorothiazide 20-25 mg tablet 1 tab PO BID 90 Days Qty: 180 1RF rosuvastatin 40 mg tablet 40 mg PO DAILY Qty: 90 1RF Lantus Solostar U-100 Insulin 100 unit/mL (3 mL) insulin pen 40 unit subcut QPM Rx Instructions: (give in 2 injections of 25 units) (DME) blood-glucose meter [Contour Next Meter] Misc See Rx Instructions .Route Rx Instructions: As directed (DME) Contour Next Test Strips Strip See Rx Instructions .Route Rx Instructions: As directed Stand Alone Forms: Work/School Release Interventions: ED Discharge Assessment Last Done: 03/16/23 18:58 Discharge Date/Time: 03/16/23 18:59 Print Language: Kazakh
[2023-03-16] MEDS: lisinopriL 40 MG TABLET PO (12:39)
[2023-03-16 14:27] VITALS: BP 208/89; PULSE 120; RESP 16; TEMP 37.1; O2SAT 95
[2023-03-16 14:31] VITALS: BP 198/82; PULSE 121
[2023-03-16] MEDS: cloNIDine HCL 0.1 MG TABLET PO (14:39)
[2023-03-16 15:33] VITALS: BP 218/107
--- NOTE | 2023-03-16 15:45 | ECG_ITS ---
Test Reason : HYPERTENTION Blood Pressure : / mmHG Vent. Rate : 067 BPM Atrial Rate : 067 BPM P-R Int : 182 ms QRS Dur : 070 ms QT Int : 392 ms P-R-T Axes : 052 -01 079 degrees QTc Int : 414 ms Normal sinus rhythm Possible Left atrial enlargement Low voltage QRS Septal infarct (cited on or before 06-DEC-2021) Abnormal ECG When compared with ECG of 06-DEC-2021 06:31, MO interval has decreased Vent. rate has decreased BY 41 BPM T wave inversion no longer evident in Inferior leads T wave inversion less evident in Anterolateral leads Referred By: Riley Cummings Electronically Signed By:Boogie Pickett
[2023-03-16] MEDS: Morphine Sulfate 4 MG/ML CARTRIDGE IVPUSH (15:57)
[2023-03-16 15:58] LABS: MANUAL DIFF FLAG NO
[2023-03-16] MEDS: Labetalol HCL 100 MG/20 ML VIAL 20 MG IVPUSH (15:58)
[2023-03-16 16:01] LABS: Basophils Percent Auto 0.5 % (0-2); Eosinophils Percent Auto 0.5 % (0-4); Hemoglobin 15.4 g/dl (12.0-16.0); Imm Gran Abs Auto 0.02 X10*3/uL (0.00-0.03); Imm Gran Pct Auto 0.3 % (0.0-0.4); Lymphocytes Absolute Auto 1.2 X10*3/uL (1.2-4.9); Lymphocytes Percent Auto 16.9 % (20-40); Mean Corpuscular HGB Conc 32.8 g/dl (31.0-35.0); Mean Corpuscular Hemoglobin 29.1 pg (27.0-33.0); Mean Corpuscular Volume 88.8 fL (80.0-98.0); Mean Platelet Volume 10.1 fL (9.4-12.3); Monocytes Absolute Auto 0.2 X10*3/uL (0.1-1.2); Monocytes Percent Auto 2.5 % (2-11); Neutrophils Absolute Auto 5.8 x10*3/uL (2.0-8.3); Neutrophils Percent Auto 79.3 % (45-73); Platelet Count 291 X10*3/uL (160-400); Red Blood Count 5.29 X10*6/uL (4.20-5.50); Red Cell Distribution Width 12.5 % (11.0-16.0); White Blood Count 7.3 X10*3/uL (4.8-10.8)
--- NOTE | 2023-03-16 16:02 | PC.NURSE ---
pt continues to be hypertensive, iv established labs drawn and sent. medicated per the mar for neck pain and htn. ekg obtained
[2023-03-16 16:10] LABS: INTERNATIONAL NORM RATIO 0.9 (0.9-1.1); Prothrombin Time 9.9 SEC (10.0-13.1)
[2023-03-16 16:13] LABS: Partial Thromboplastin Time 26.2 SEC (26.0-36.4)
[2023-03-16 16:19] LABS: Alanine Aminotransferase 18 U/L (0-31); Albumin Level 4.1 g/dL (3.5-5.0); Alkaline Phosphatase 94 U/L (39-117); Anion Gap 13 (12-20); Aspartate Amino Transferase 26 U/L (5-31); Bilirubin Total 1.3 mg/dL (0.0-1.0); Blood Urea Nitrogen 13 mg/dL (9-16); Calcium 10.2 mg/dL (8.4-10.2); Carbon Dioxide 29 mmol/L (22-29); Chloride 101 mmol/L (96-108); Creatinine Clr Calc Pharmacy 77.8; Estimated Glomerular Filt Rate > 60; Glucose Random 195 mg/dL (60-115); Potassium 4.4 mmol/L (3.3-5.1); Sodium 139 mmol/L (135-145); Total Protein 7.4 g/dL (6.5-8.0)
[2023-03-16 16:26] LABS: Troponin-I High Sensitivity 8.6 ng/L (<3.5-17.0)
[2023-03-16 17:38] VITALS: BP 149/74; PULSE 74; RESP 16; O2SAT 98
[2023-03-16 18:16] LABS: Troponin-I High Sensitivity 8.2 ng/L (<3.5-17.0)
== END 2023-03-16 18:59 | disposition home or self-care (01) ==
PROVIDERS: Physician Assistant; Emergency Provider Emergency Medicine; PCP Internal Medicine
DX: M54.12 Radiculopathy, cervical region (principal); I10 Essential (primary) hypertension; R94.31 Abnormal electrocardiogram [ECG] [EKG]; Z79.899 Other long term (current) drug therapy
CPT/HCPCS: 36415; 72125; 80053; 84484; 85025; 85610; 85730; 93005; 96372; 96374; 96375; 99284; J1885; J2270

== ENCOUNTER → 2023-03-16 15:45 | Outpatient (BNV) | payer OTHER, SELFPAY | PROVIDERS: Emergency Provider Emergency Medicine; PCP Internal Medicine; Visit Provider Internal Medicine Cardiovascular Disease | DX: R94.31 Abnormal electrocardiogram [ECG] [EKG] (principal) | CPT/HCPCS: 93010 ==

== ENCOUNTER 2023-03-25 09:29 | Outpatient (AMB) | payer OTHER, SELFPAY ==
--- NOTE | 2023-03-25 09:52 | MHC.OFFVIS ---
Intake Intake Visit Reasons: ov-INJURY OF LEFT SHOULDER MRI follow up Intake Note: Radha is a 62 year old right hand dominant female who presents today for a follow up of her left shoulder s/p MRI. Allergies Penicillins [PENICILLINS] Allergy (Severe, Verified 01/20/23 09:42) RASH Sulfa (Sulfonamide Antibiotics) [SULFA (SULFONAMIDE ANTIBIOTICS)] Allergy (Severe, Verified 01/20/23 09:42) THROMBOCYTOPENIA, severe penicillin V Allergy (Unknown, Verified 01/20/23 09:42) rash HPI ov-INJURY OF LEFT SHOULDER MRI follow up HPI Details Radha is a 62 year old Diabetic woman who presents for an MRI review for her left shoulder pain. She complains of pain with daily activity. She says this also occurs when she is at rest, without provocation. She also complains of clicking and popping sensations in her shoulder. 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 She reports good relief from her first shoulder injection, but no relief from her second injection. She says PT has not been helpful at all. She says she experienced some claustrophobia when getting her MRI. She thinks she injured her neck and has had ~1 month of pain in the posterior of her neck. She was seen in the ED on 03/16/23 and given a 5-day course of Prednisone, which gave her some relief, but her pain has returned. She says her Diabetes is well-controlled and she has been monitoring her levels since she took the Prednisone. 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 HLD (hyperlipidemia) Hypertension Nephrolithiasis Surgical History History of knee replacement Family History Family/Other No known health problems Social History Household Members: Spouse Housing: House Do you presently have visiting nurse or other home services: No Unable to assess alcohol history related to: Unknown Alcohol intake: never Patient Tobacco Use Status: Never used Tobacco service: No Current occupational status: disabled Review of Systems Const All systems reviewed & are unremarkable except as noted in HPI and below Physical Exam Const General: no acute distress, alert and awake Orientation/consciousness: patient oriented x3 HEENT Head: Yes normocephalic and Yes atraumatic Eyes EOM: EOMs intact bilaterally Resp Effort & Inspection: normal respiratory effort and able to speak in complete sentences Cardio Jugular venous distension: no JVD Skin General skin exam: turgor normal Rashes: no rashes Neuro General: patient oriented x3 Extrem Other: Left Shoulder: 5/5 strength with empty can testing + H&N Full ROM Psych Appearance: grossly normal Affect: normal affect Attitude: cooperative Office Procedures Joint Injection/Drain Joint Injection/Drain Details: Injected 1 mL of Decadron and 3 mL 1% lidocaine and 3 mL of 0.25% Marcaine. Site was prepped using aseptic technique. Patient tolerated the procedure well. Primary Site: left shoulder Approach Used: posterolateral Coding 12556 - Glenohumeral/Tronchanteric Bursa/Intraarticular Procedure code (CPT) selection complete Results Reviewed Results Reviewed: 03/25/23 10:09 BUPivacaine MPF 0.25 % [Sensorcaine-MPF 0.25% 10 ML] 10 ml .ROUTE .STK-MED ONE Lidocaine HCl 2 % MPF [Xylocaine 2 % MPF] 5 ml .ROUTE .STK-MED ONE dexAMETHasone sod phosphate [Decadron] 4 mg .ROUTE .STK-MED ONE I personally reviewed relevant MR images 1.? Small insertional partial tear of the anterior supraspinatus tendon. Additional scattered supraspinatus tendinosis and perhaps additional small areas of partial tearing but no measurable defect or tendon retraction. ? 2.? [id number] arthrosis of the acromioclavicular joint. ? 3.? [id number]-[id number] arthrosis of the glenohumeral joint. Mild joint effusion and synovitis. Assessment & Plan Assessment & Plan (1) Impingement syndrome of left shoulder region: Code(s): M75.42 - Impingement syndrome of left shoulder Plan: This is a 62 year old woman with left shoulder impingement and ~1 month of cervicalgia. She has pain with daily activity, and when at rest, with no provocative actions. She had mixed relief from steroid injections, and PT has not helped her. I discussed her diagnosis and treatment options. No surgical intervention indicated at this time. I injected her left shoulder today, which she tolerated well, and referred her to Dr. Machado in Pain Management. She can follow up prn. (2) DM2 (diabetes mellitus, type 2): Code(s): E11.9 - Type 2 diabetes mellitus without complications Plan: I discussed the hyperglycemic effects of steroid injections. (3) Cervicalgia: Code(s): M54.2 - Cervicalgia (4) Partial tear of left rotator cuff: Code(s): M75.112 - Incomplete rotator cuff tear or rupture of left shoulder, not specified as traumatic Plan: Small partial thickness tear anterior supraspinatus with good motion and strength. Surgery not indicated Plan Scribed for Moises Toledo MD by Luis Alberto Pruett, pediatrician/medical doctor, on 03/25/23 at 10:05 AM, EST. Orders: Referrals Pain Management Referral M54.2 - Cervicalgia, M75.42 - Impingement syndrome of left shoulder Coding Level of Care Code Est Pt Level 4 (18461) Diagnoses Impingement syndrome of left shoulder region M75.42 DM2 (diabetes mellitus, type 2) E11.9 Cervicalgia M54.2 Partial tear of left rotator cuff M75.112 CPT Codes Coding - Joint 7: 50972 - Glenohumeral/Tronchanteric Bursa/Intraarticular ([id number])
== END 2023-03-25 10:31 | disposition home or self-care (01) ==
PROVIDERS: PCP Internal Medicine; Visit Provider Orthopaedic Surgery
DX: M75.42 Impingement syndrome of left shoulder (principal); M75.112 Incomplete rotator cuff tear or rupture of left shoulder, not specified as traumatic; E11.9 Type 2 diabetes mellitus without complications; M54.2 Cervicalgia
CPT/HCPCS: 20610; 99214

== ENCOUNTER → 2023-03-25 09:29 | Outpatient (BNVA) | payer OTHER, SELFPAY | PROVIDERS: PCP Internal Medicine; Visit Provider Orthopaedic Surgery | DX: M75.42 Impingement syndrome of left shoulder (principal); E11.9 Type 2 diabetes mellitus without complications; M54.2 Cervicalgia; M75.112 Incomplete rotator cuff tear or rupture of left shoulder, not specified as traumatic | CPT/HCPCS: 20610; J1100 ==

== ENCOUNTER 2023-04-05 08:49 | Outpatient (AMB) | payer OTHER, SELFPAY ==
--- NOTE | 2023-04-05 08:50 | A.OFFVIS_ITS ---
Intake Vital Signs 04/05/23 08:57 Height 5 ft 3.5 in Weight 202 lb 8 oz BMI 35.3 BP 161/99 H Blood Pressure Location Rt brachial Position Sitting Pulse 78 Pulse Source Pulse Oximeter Pulse Oximetry (%) 98 Oxygen Delivery Method Room Air Intake Visit Reasons: LEFT SHOULDER AND NECK PAIN Intake Note: Pain today 11/06. Supplier Quality Specialist Required: No Accompanied by: Self / Same As Patient Allergies Penicillins [PENICILLINS] Allergy (Severe, Verified 04/05/23 08:55) RASH Sulfa (Sulfonamide Antibiotics) [SULFA (SULFONAMIDE ANTIBIOTICS)] Allergy (Severe, Verified 04/05/23 08:55) THROMBOCYTOPENIA, severe penicillin V Allergy (Unknown, Verified 04/05/23 08:55) rash HPI LEFT SHOULDER AND NECK PAIN HPI Details Patient is a pleasant 62 years old female with a history of diabetes, neck pain, partial tear of left rotator cuff, cervical degenerative disc disease and left shoulder arthritis presents today for initial evaluation of neck pain. Patient reports onset of neck pain in January while anxiously undergoing MRI and has experienced claustrophobia while getting MRI and was very stiff and thinks she injures her posterior neck. Pain was so unbearable that she seeked medical evaluation in the ED on 03/16/23 and was given a 5-day course of Prednisone with partial and temporary pain relief. She has been sent to us by Dr. Toledo who is managing her left shoulder pain. Patient is right hand dominant and works on the computer. Neck pain is mostly axial, easily reproducible with extension and left lateral bending or rotation. Stretching feels like a relief to her. Denies any weakness, numbness or tingling in left upper extremity but increased pain and fatigue with left arm use or putting on a bra causes her significant left shoulder pain. Denies significant pain with overhead reaches. Pain interferes with her daily activities and functions, mood, social interactions and sleep as she cannot find comfortable position for her neck and left shoulder. She has completed PT and received left shoulder cortisone injection with partial results. Her diabetes is well controlled with most recent A1C 7.5 per patient. Cervical pain is consistent with musculoskeletal and axial components. Cervical CT scan is noted for moderate degenerative changes throughout the cervical spine. She is interested in obtaining her own TENS unit and undergo a course of physical therapy. Denies any fever, dizziness, shortness of breaths, headaches, blurred vision, gait imbalance, bladder or bowel incontinence or saddle anesthesia. 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 HLD (hyperlipidemia) Hypertension Nephrolithiasis Surgical History History of knee replacement Family History Family/Other No known health problems Social History Household Members: Spouse Housing: House Do you presently have visiting nurse or other home services: No Alcohol intake: never Patient Tobacco Use Status: Never used Tobacco service: No Current occupational status: disabled Review of Systems Const All systems reviewed & are unremarkable except as noted in HPI and below ENT Reports Normal hearing present Neuro Reports Normal hearing present and Denies confusion Psych Denies confusion Physical Exam Vital Signs: Last Vital Signs Pulse 78 04/05/23 08:57 BP 161/99 H 04/05/23 08:57 Pulse Ox 98 04/05/23 08:57 Oxygen Delivery Method Room Air 04/05/23 08:57 BMI result Body Mass Index 35.3 Const General: cooperative, no acute distress, alert and awake; No confusion Nutritional Appearance: well nourished Orientation/consciousness: patient oriented x3 and No confusion Limitations: no limitations HEENT Head: Yes normal to inspection, Yes normocephalic and Yes atraumatic Ears: hearing grossly normal bilaterally and external ears normal General nose exam: Normal external nose present and No nasal discharge present Face and sinus: Yes normal facial exam Eyes General: appearance normal, both eyes and all related structures Visual Trammell: normal visual trammell by confrontation Pupils: Equal, round and reactive pupils present EOM: EOMs intact bilaterally Neck Other: Patient with decreased cervical ROM with left lateral rotation and bending. Reports increased pain with cervical extension and mild pain with flexion. Spurling compression test is negative. Pain is unchanged by Spurling maneuver with retraction. Elvey's tension test negative bilaterally. Lhermitte's test was negative. DTR intact, +2 and symmetrical. Patient demonstrated 5/5 right and 4/5 left motor strength of bilateral upper extremities. 2 + radial pulses. Significant tightness throughout left upper trapezius as well as TTP throughout bilateral upper trapezius muscles. Neck: Yes normal visual inspection, Yes full ROM, Yes no lymphadenopathy, Yes supple, No anterior neck swelling and Yes no JVD Resp Effort & Inspection: normal respiratory effort, no cough and no respiratory distress Cardio Jugular venous distension: no JVD Rate: regular rate Peripheral pulses: Peripheral pulses 2+ throughout and radial pulses present Back/Spine/Pelvis Cervical Spine: cervical muscular tenderness, pain with cervical ROM, No Cervical spine scars present, cervical spasm, No Cervical spine tenderness and No step off deformity Thoracic/Lumbar Spine: thoracic and lumbar spine normal to inspection, No Thoracic/lumbar spine scar(s), paraspinal muscle tenderness, No thoracic spinal tenderness and No lumbar spinal tenderness Skin General skin exam: no rashes or lesions noted Wounds: no wounds Neuro General: patient oriented x3, gait normal, moves all extremities, CN's II-XI intact bilaterally and No confusion Cranial nerves: Yes Equal, round and reactive pupils present and Yes Normal hearing present Coordination: Romberg test negative Extrem General: Yes capillary refill normal and Yes no clubbing, cyanosis or edema Left upper extremity: shoulder/upper arm (Limited pain with backside pocket reaches) Details: inspection abnormal and tenderness Location: of the A-C joint and over the subacromial bursa; no swelling, no ecchymosis, no crepitus and no unsual warmth Psych Appearance: grossly normal and well kempt Mental Status: mental status grossly normal Speech and movement: Normal speech and movement present and Clear speech present Affect: normal affect Attitude: cooperative Thought process: Normal thought process present Thought content: Normal thought content present Insight: Good insight present (Psych) Judgement: Good judgement present (Psych) Results Reviewed Results Reviewed: CT CERVICAL SPINE WITHOUT CONTRAST 03/16/23 CLINICAL INFORMATION: Posterior neck pain. FINDINGS: There is anatomic alignment of the vertebral bodies and posterior elements. The atlantoaxial and atlantooccipital articulations are intact. Vertebral body heights are maintained. There is multilevel intervertebral disc space narrowing with endplate osteophyte formation and facet arthropathy. Ossification along the posterior longitudinal ligament. There is also calcification of the ligamentum flavum diffusely. Bilateral bony neuroforaminal narrowing at the C5-C6 level. No evidence of acute fracture. No prevertebral soft tissue swelling. There is no cervical lymphadenopathy. The visualized thyroid gland is unremarkable. The visualized base of the brain is unremarkable. The visualized lung apices are clear. IMPRESSION: No evidence for acute injury to the cervical spine. Moderate degenerative changes throughout the cervical spine. Assessment & Plan Assessment & Plan (1) Cervical spondylosis: Code(s): M47.812 - Spondylosis without myelopathy or radiculopathy, cervical region (2) Disc disease, degenerative, cervical: Code(s): M50.30 - Other cervical disc degeneration, unspecified cervical region (3) Muscle spasm: Code(s): M62.838 - Other muscle spasm (4) Partial tear of left rotator cuff: Code(s): M75.112 - Incomplete rotator cuff tear or rupture of left shoulder, not specified as traumatic (5) Left shoulder pain: Code(s): M25.512 - Pain in left shoulder Plan 1. Continue follow up with [facility] for left shoulder pain as planned. 2. Recommend course of physical therapy for axial cervical pain with muscle spasms and tenderness. Script provided. 3. Script provided for cyclobenzaprine, side effects and precautions reviewed with patient. 4. Patient is interested in obtaining her own TENS unit, script faxed to [facility]. Informational pamphlet on TENS unit use and application provided. All questions and concerns have been answered and patient agreed with the plan. Follow up after PT and sooner if needed. Orders: Orders PT Evaluation and Treatment 04/05/23 M47.812 - Spondylosis without myelopathy or radiculopathy, cervical region, M50.30 - Other cervical disc degeneration, unspecified cervical region, M62.838 - Other muscle spasm Medications: New cyclobenzaprine 10 mg (2 x 5 mg) PO BEDTIME PRN 60 tabs 1RF muscle spasm M47.812 - Spondylosis without myelopathy or radiculopathy, cervical region, M62.838 - Other muscle spasm Coding Level of Care Code New Pt Level 4 (75636) Diagnoses Cervical spondylosis M47.812 Disc disease, degenerative, cervical M50.30 Muscle spasm M62.838 Partial tear of left rotator cuff M75.112 Left shoulder pain M25.512
[2023-04-05 08:57] VITALS: BP 161/99; PULSE 78; O2SAT 98; BMI 35.3
== END 2023-04-05 09:24 | disposition home or self-care (01) ==
PROVIDERS: PCP Internal Medicine; Visit Provider Nurse Practitioner Family
DX: M47.812 Spondylosis without myelopathy or radiculopathy, cervical region (principal); M50.30 Other cervical disc degeneration, unspecified cervical region; M62.838 Other muscle spasm; M75.112 Incomplete rotator cuff tear or rupture of left shoulder, not specified as traumatic; M25.512 Pain in left shoulder
CPT/HCPCS: 99204

== ENCOUNTER → 2023-04-05 08:49 | Outpatient (BNVA) | payer OTHER, SELFPAY | PROVIDERS: PCP Internal Medicine; Visit Provider Nurse Practitioner Family ==

== ENCOUNTER 2023-05-14 07:00 | Outpatient (RCR) | payer OTHER, SELFPAY ==
--- NOTE | 2023-04-30 08:59 | MHC.PT.EP ---
[facility] [place] Office [place] Office [place] Office [address] Eloy Cruz [address] [phone] F: [phone] F: [phone] F: [phone] F: [phone] Physical Therapy Plan of Care Date of Evaluation: Date of Surgery: Diagnosis: CERVICAL SPONDYLOSIS, MUSCLE SPASM Assessment: 62 YO FEMALE REF TO PT WITH EXACERBATION OF CERVICAL PAIN IN 01/2023 -> SHE HAS A H/O SARMAD SH PAIN/ RTC INVOLVEMENT. HER RECENT CERV CT SCAN 03/16/23 IN PART: There is multilevel intervertebral disc space narrowing with endplate osteophyte formation and facet arthropathy. Ossification along the posterior longitudinal ligament. There is also calcification of the ligamentum flavum diffusely. Bilateral bony neuroforaminal narrowing at the C5-C6 level. THE Pt HAS LIMITED ROM IN HER C-SPINE AND SARMAD SH; STRENGTH DEFICITS IN SARMAD POST RC/ SCAP/ MID BACK; DECR POSTURAL AWARENESS AITH MILD Rt THOR CURVE, NUMBNESS Rt THUMB TIP, AND (+) SOFT TISSUE IRRITABILITY IN SARMAD CERV-> UPPER/MID TRAPS. FUNCTIONALLY, THE Pt HAS DECR CAIO TO PROLONGED SITTING AT HER COMPUTER, SLEEPING, AND MORE PHYSICALLY DEMANDING ADLs. SHE WOULD BENEFIT FROM PT TO ADDRESS THE ABOVE SXS, DEV A HEP, IMPROVE POSTURAL/ POSITIONING TO REDUCE CERV STRESS, AND EDUC Pt RE SKILLS FOR FUTURE SX MGMT. Frequency and Duration: The patient will be seen 2 x WK x 4 WKS Short Term Goals: *EDUC Pt RE HOME TENS USAGE (PROVIDED THRU HER PAIN MGMT PROGRAM) *Pt INDEP W SELF-CORRECT OF HER POSTURE IN VARIED POSES/ TASKS *DECR CERV PAIN TO 2-3/10 AND Rt THUMB SXS REDUCED BY 75% * REDUCE TISSUE TENSION IN POST CERV INCREASE CERV ROTAT AND LAT FLEX SARMAD *INITIATE HEP-> POST RC/ SCAP/ MID BACK Wig Maker Goals: *Pt INDEP W HEP AND SELF-SX MGMT TECHN *IMPROVED SLEEP, ENHANCED SLEEPING POSTURES *Pt RESUME REG ADLs AND FITNESS EVIDENT WITH IMPROVED NPDI (1850 AT EVAL) *MID BACK/ SCAP STRENGTH IMPROVED BY 1/2-1 GRADE Treatment Plan: Modalities to reduce pain, spasms and effusion. Manual therapy to restore motion and function. Therapeutic exercise to improve strength and flexibility. Neuromuscular re-education for posture and balance. Therapeutic activities to return to functional activities of daily living. Electronically signed by: HAI BIRD PT Please sign and return to therapist. Thank you for your referral.
--- NOTE | 2023-06-08 07:11 | MHC.PT.DC ---
[facility] [place] Office [place] Office [place] Office [address] Eloy rCuz 140 [facility] [phone] F: [phone] F: [phone] F: [phone] F: [phone] Physical Therapy Discharge Report Diagnosis: CERVICAL SPONDYLOSIS, MUSCLE SPASM Date of Surgery: Date of Evaluation: 04/30/23 Date of Discharge: 06/08/23 Treatments to Date: 2 Cancellations to Date: 2 No Shows to Date: 2 Discharge Status: Improved Function Patient Elected to Stop Discharge Summary: AT LAST ATTENDED PT APPT THE Pt WAS PROGRESSING WELL WITH HER HEP AND HAD DECREASED FREQUENCY AND INTENSITY OF HER CERVICAL PAIN. SHE HAD CANC HER LAST FEW SCHED PT APPTS DUE TO OTHER MEDICAL CONCERNS AND, THEREFORE, A FORMAL REASSESSMENT WAS NOT PERFORMED. 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 SHE HAS MET SOME OF HER PT GOALS. Electronically signed by: HAI BIRD,PT Please sign and return to therapist. Thank you for your referral.
== END 2023-06-08 07:12 | disposition home or self-care (01) ==
LOC: HO.PT 07:00
PROVIDERS: PCP Internal Medicine; Visit Provider Nurse Practitioner Family
DX: M47.812 Spondylosis without myelopathy or radiculopathy, cervical region (principal); M50.30 Other cervical disc degeneration, unspecified cervical region; M62.838 Other muscle spasm
CPT/HCPCS: 97110; 97140; 97162; 97530

== ENCOUNTER 2023-05-22 09:17 | Outpatient (AMB) | payer OTHER, SELFPAY ==
[2023-05-22 09:24] VITALS: BP 142/90; PULSE 82; TEMP 37.1; O2SAT 97; BMI 35.2
--- NOTE | 2023-05-22 09:24 | MHC.OFFWIV ---
Intake Vital Signs 05/22/23 09:24 Height 5 ft 3.5 in Weight 202 lb BMI 35.2 BP 142/90 H Blood Pressure Location Lt brachial Position Sitting Pulse 82 Pulse Source Pulse Oximeter Temp 98.8 F Temp Source Temporal Artery Scan Pulse Oximetry (%) 97 Intake Visit Reasons: EST/sore throat headache/kiamni Intake Note: pt is here for c/o sore throat, headache, congestion. patient states she tested postive for covid yesterday Patient Tobacco Use Status: Never used Tobacco Allergies Penicillins [PENICILLINS] Allergy (Severe, Verified 05/22/23 09:25) RASH Sulfa (Sulfonamide Antibiotics) [SULFA (SULFONAMIDE ANTIBIOTICS)] Allergy (Severe, Verified 05/22/23 09:25) THROMBOCYTOPENIA, severe penicillin V Allergy (Unknown, Verified 05/22/23 09:25) rash Do you need a note to return to daycare/school/sports/work: Yes HPI EST/sore throat headache/kimani HPI Details pt is here for c/o sore throat, headache, congestion. 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 HLD (hyperlipidemia) Hypertension Asthma Nephrolithiasis Diabetes Surgical History History of knee replacement Family History Family/Other No known health problems Social History Household Members: Spouse Housing: House Do you presently have visiting nurse or other home services: No Alcohol intake: never Patient Tobacco Use Status: Never used Tobacco service: No Current occupational status: disabled Review of Systems Const All systems reviewed & are unremarkable except as noted in HPI and below Physical Exam Vital Signs: Last Vital Signs Temp 98.8 F 05/22/23 09:24 Pulse 82 05/22/23 09:24 BP 142/90 H 05/22/23 09:24 Pulse Ox 97 05/22/23 09:24 BMI result Body Mass Index 35.2 Const General: cooperative, comfortable, no acute distress, alert, awake, Physically active and well groomed; No anxious, diaphoretic, intoxicated appearing or poor hygiene Nutritional Appearance: average body habitus Orientation/consciousness: oriented to person Limitations: no limitations HEENT Head: Yes normal to inspection, Yes normocephalic and Yes atraumatic Ears: hearing grossly normal bilaterally, external ears normal, TM's normal bilaterally and EAC's normal General nose exam: Normal external nose present, Normal nares present, No nasal polyps present, Normal nasal mucous membranes and turbinates present, Normal septum present and No nasal discharge present Face and sinus: Yes normal facial exam, Yes sinuses nontender and Yes face symmetric Mouth: Normal oral and palatal mucosa present, lip normal and tongue normal Throat: Yes uvula midline, Yes abnormal tonsil (mildly erythematous bilaterally), No peritonsillar mass, Yes postnasal drainage (Clear), No uvular edema and No cobblestoning Eyes General: appearance normal, both eyes and all related structures Neck Neck: Yes normal visual inspection, Yes full ROM, Yes no lymphadenopathy, Yes trachea midline, Yes supple and No anterior neck swelling Chest Chest palpation & inspection: normal palpation of entire chest wall Resp Effort & Inspection: normal respiratory effort, able to speak in complete sentences, normal respiratory pattern, no audible wheezes, Actively coughing (Rare) Quality: dry, respiratory effort not decreased, no grunting, not labored, no nasal flaring, no pursed lip breathing, no retractions, not tachypneic, no tripod positioning, no use of accessory muscles and symmetric chest movement Auscultation: clear to auscultation bilaterally, no crackles, no rales, no rhonchi, no wheezes, lung sounds not diminished and No rub present Cardio Palpation: normal PMI Rate: regular rate Rhythm: regular rhythm Heart sounds: S1 normal heart sound present and S2 normal heart sound present Skin Other: Good color, warm and dry Neuro General: oriented to person Psych Appearance: grossly normal Mental Status: mental status grossly normal Speech and movement: Normal speech and movement present Affect: normal affect Attitude: cooperative Thought process: Normal thought process present Insight: Good insight present (Psych) Judgement: Good judgement present (Psych) Assessment & Plan Assessment & Plan (1) COVID: Code(s): U07.1 - COVID-19 Plan Patient is a 62-year-old female with a history of controlled insulin-dependent diabetes, who is a few days in with COVID. She has symptoms consistent with upper respiratory infection, and is overall stable, with only a mildly ill appearance. She requests Paxlovid, which is reasonable treatment option for her due to her immunosuppressed condition. She declined chest x-ray today, but she does not have any chest discomfort or significant cough or difficulty breathing. We discussed the possible side effects, and she was prescribed the antiviral today. She knows to follow up if symptoms persist or worsen, or go to the emergency department with any worrisome symptoms Medications: New nirmatrelvir-ritonavir 300 mg (150 mg x 2)-100 mg take TWO 150 mg tablets of nirmatrelvir with ONE 100 mg tablet of ritonavir twice daily for 5 days PO. 30 ea 0RF Coding Level of Care Code Est Pt Level 4 (98088) Diagnoses COVID U07.1
== END 2023-05-22 09:53 | disposition home or self-care (01) ==
PROVIDERS: PCP Internal Medicine; Visit Provider Physician Assistant Medical
DX: U07.1 COVID-19 (principal)
CPT/HCPCS: 99051; 99214

== ENCOUNTER 2023-06-10 14:26 | Outpatient (AMB) | payer OTHER, SELFPAY ==
--- NOTE | 2023-06-10 14:28 | A.OFFVIS_ITS ---
Intake Vital Signs 06/10/23 14:32 Weight 210 lb 15.718 oz BP 144/80 H Blood Pressure Location Lt brachial Position Sitting Pulse 84 Pulse Source Pulse Oximeter Intake Visit Reasons: f/u Pancreolytic diabetes Intake Note: Patient presents today to follow up on pancreolytic diabetes. Last Diabetic Eye exam: 02/2023 Last Podiatry Visit: None Random Glucose: 122 mg/dl HgA1C:7.6% Rehabilitation Engineer Required: No Accompanied by: Self / Same As Patient Allergies Penicillins [PENICILLINS] Allergy (Severe, Verified 06/10/23 14:42) RASH Sulfa (Sulfonamide Antibiotics) [SULFA (SULFONAMIDE ANTIBIOTICS)] Allergy (Severe, Verified 06/10/23 14:42) THROMBOCYTOPENIA, severe penicillin V Allergy (Unknown, Verified 06/10/23 14:42) rash HPI HPI Comments History of Present Illness Details Patient is 63 yo female with insulin deficent DM diagnosed about 30 years ago, who presents for management of diabetes. . . She did have negative antibodies. Past medical history: HTN, HLD, pancreatitis Micro and macrovascular complications: no known complications Diabetes medications: Lantus 30 units. She will also use Humalog 10 units for breakfast, and 14 units for lunch and dinner. She may add plus 2 units for blood sugar over 200 and for every 50 mg above 200 to a max of +8 units. She had pancreatitis with GLP-1 in past. Blood glucose monitoring: Dexcom download shows she is using the sensor 100% of the time. Average glucose is 179 with G mi of 7.6% in standard deviations 63. 54% range with 45% hyperglycemia and 1% hypoglycemia. And shows rise after lunch. Symptoms reported: denies numbness, tingling, cramping in lower extremities Hypoglycemia: rare Hyperglycemia: denies urinary frequency Blood glucose monitoring: Unfortunately did not bring logbook or glucometer to appt Exercise: . 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 Last optho: couple of mos ago has retinopathy Laboratory Tests she had been waiting to get it an Omnipod pump and Dexcom sensor 12/26/21 12/26/21 12/29/21 08:15 08:15 07:40 Creatinine Estimated GFR Hemoglobin A1c % 13.5 Triglycerides Cholesterol LDL Cholesterol Di rect LDL Cholesterol, C alc HDL Cholesterol 25-OH Vitamin D To florencio 22.5 Microalb/Creat Rat io 373.1 DORA Antibody 05/02/22 05/02/22 07:45 07:45 Creatinine 0.63 Estimated GFR > 60 Hemoglobin A1c % Triglycerides 143 Cholesterol 207 LDL Cholesterol Di rect 128 H LDL Cholesterol, C alc 135 HDL Cholesterol 44 25-OH Vitamin D To florencio Microalb/Creat Rat io DORA Antibody <5 12/29/21 07:45 Islet Cell Ab Scre en NEGATIVE Islet Cell Ab Tite r TNP [facility] Medical History 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 HLD (hyperlipidemia) Hypertension Asthma Nephrolithiasis Diabetes Surgical History History of knee replacement Family History Family/Other No known health problems Social History Household Members: Spouse Housing: House Do you presently have visiting nurse or other home services: No Alcohol intake: never Patient Tobacco Use Status: Never used Tobacco service: No Current occupational status: disabled Physical Exam Vital Signs: Last Vital Signs Pulse 84 06/10/23 14:32 BP 144/80 H 06/10/23 14:32 Results AMB Hemoglobin A1c AMB Hemoglobin A1c 7.6 % Last Edit by Ashley Miller on 06/10/23 15:08 Assessment & Plan Assessment & Plan (1) 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 macrovascular complications . Plan is increase the Humalog to 18 units particularly of high carbohydrate. 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 Told patient to decrease Lantus 26 units of experienced hypoglycemia overnight (2) HLD (hyperlipidemia): Code(s): E78.5 - Hyperlipidemia, unspecified Plan: Will recheck lipid profile Orders: Orders AMB Hemoglobin A1c Today E13.9 - Other specified diabetes mellitus without complications, S36.209S - Unspecified injury of unspecified part of pancreas, sequela Lipid Panel Today E13.9 - Other specified diabetes mellitus without complications, S36.209S - Unspecified injury of unspecified part of pancreas, sequela Referrals Nutrition/Dietitian Referral E13.9 - Other specified diabetes mellitus without complications, S36.209S - Unspecified injury of unspecified part of pancreas, sequela Medications: New insulin glargine (Lantus Solostar U-100 Insulin) (give in 2 injections of 25 units) 40 units (0.4 mL) subcut QPM 45 mL 4RF E10.29 - Type 1 diabetes mellitus with other diabetic kidney complication Refilled Humalog KwikPen Insulin (insulin lispro) 10 - 22 units (0.1 - 0.22 mL) subcut TI D 25 days 15 mL 6RF NS Coding Level of Care Code Est Pt Level 4 (77573) Diagnoses 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
[2023-06-10 14:32] VITALS: BP 144/80; PULSE 84
[2023-06-10 14:44] LABS: Glucose, Whole Blood 122 mg/dL (60-115)
== END 2023-06-10 15:00 | disposition home or self-care (01) ==
LOC: HO.ENCR 14:26
PROVIDERS: PCP Internal Medicine; Visit Provider Internal Medicine Endocrinology, Diabetes & Metabolism
DX: E13.9 Other specified diabetes mellitus without complications (principal); S36.209S Unspecified injury of unspecified part of pancreas, sequela; E78.5 Hyperlipidemia, unspecified
CPT/HCPCS: 99214

== ENCOUNTER → 2023-06-10 14:26 | Outpatient (BNVA) | payer OTHER, SELFPAY | PROVIDERS: PCP Internal Medicine; Visit Provider Internal Medicine Endocrinology, Diabetes & Metabolism | DX: E13.9 Other specified diabetes mellitus without complications (principal); S36.209S Unspecified injury of unspecified part of pancreas, sequela; E78.5 Hyperlipidemia, unspecified | CPT/HCPCS: 82947; 83036 ==

== ENCOUNTER 2023-07-08 11:49 | Outpatient (REF) | payer OTHER, SELFPAY ==
[2023-07-08 12:48] LABS: Alanine Aminotransferase 21 U/L (0-31); Albumin Level 3.9 g/dL (3.5-5.0); Alkaline Phosphatase 90 U/L (39-117); Aspartate Amino Transferase 24 U/L (5-31); Bilirubin Direct 0.3 mg/dL (0.0-0.5); Glucose Fasting 191 mg/dL (60-99); Total Protein 6.7 g/dL (6.5-8.0)
[2023-07-08 12:49] LABS: Cholesterol 145 mg/dL (<200); HDL Cholesterol 47 mg/dL (>40); LDL Cholesterol Calculated 82 mg/dL (<100); Triglycerides 81 mg/dL (<150)
[2023-07-08 13:09] LABS: Reflex LDLD? No
[2023-07-08 13:18] LABS: Estimated Average Glucose 157 mg/dL; Hemoglobin A1c % 7.1 % (<6.0)
== END 2023-07-08 11:50 | disposition home or self-care (01) ==
LOC: HO.LNP 11:49
PROVIDERS: Visit Provider Internal Medicine
DX: E78.00 Pure hypercholesterolemia, unspecified (principal); E11.9 Type 2 diabetes mellitus without complications
CPT/HCPCS: 80061; 80076; 82947; 83036

== ENCOUNTER 2023-09-14 10:25 | Outpatient (REF) | payer OTHER, SELFPAY ==
--- NOTE | ~2023-09-14 | MM_ITS ---
EXAMINATION: MM SCREENING DIGITAL BREAST TOMOSYNTHESIS, BILATERAL CLINICAL INFORMATION: Screening. Asymptomatic. COMPARISON: Mammography: This study is compared with prior exams dating back to 2016. There are no interval mammograms between 2018 and 2022, inclusive. TECHNIQUE: Digital breast tomosynthesis is performed in both the craniocaudal and mediolateral oblique views along with computer-aided detection (CAD). Synthesized 2D images are generated from the tomosynthesis. FINDINGS: There are scattered areas of fibroglandular density (ACR BI-RADS breast composition Category b). There are no significant masses, abnormal calcifications, or other abnormalities. There are a few, bilateral, small, coarse calcifications in each breast. These are benign. MM/MM tomosynthesis screening BI IMPRESSION: No mammographic evidence of malignancy. ASSESSMENT: BI-RADS BI-RADS 2 - Benign Findings RECOMMENDATION: Routine annual mammography screening. 1 year F/U This examination should not preclude the clinical evaluation of a suspicious palpable abnormality. This patient's information was entered into a reminder system with a target due date for their next mammogram.
--- NOTE | ~2023-09-14 | MM_ITS ---
EXAMINATION: BONE DENSITOMETRY CLINICAL INDICATION: Asymptomatic menopausal state. COMPARISON: Previous BD dated 08/01/2019 and baseline BD dated 07/19/2015. TECHNIQUE: Using a [employer] DXA System (software version: 13.1) manufactured by [employer], dual-energy x-ray absorptiometry was performed of the lumbar spine and left hip. The images are of good technical quality. Summary results are attached. FINDINGS: LEFT FEMUR, NECK: Current: BMD 0.771 g/cm2, Z-score -1.1, T-score -1.9, osteopenia. Prior: BMD 0.868 g/cm2. Baseline: BMD 0.917 g/cm2. LEFT FEMUR, TOTAL: Current: BMD 0.886 g/cm2, Z-score -0.4, T-score -1.0, normal, 10.6% decrease from previous, 13.7% decrease from baseline (<5% change is not significant). Prior: BMD 0.991 g/cm2. Baseline: BMD 1.027 g/cm2. AP SPINE L1-L4: Current: BMD 1.129 g/cm2, Z-score 0.2, T-score -0.4, normal, 2.6% increase from previous, 3.3% increase from baseline (<5% change is not significant). Prior: BMD 1.100 g/cm2. Baseline: BMD 1.093 g/cm2. IDENTIFIED RISK FACTORS: Menopause, secondary osteoporosis. HISTORY OF FRACTURE: None listed. MEDICATIONS: Calcium supplements or multivitamin, vitamin D. MM/XR DEXA axial skeleton IMPRESSION: 1. DIAGNOSIS: Osteopenia based on the lowest T-score value of -1.9 in the femoral neck applying World Health Organization criteria. 2. 10-YEAR FRACTURE RISK PREDICTION, FRAX: Major osteoporotic fracture (clinical spine, forearm, hip or shoulder) 9.5%. Hip fracture 1.3%. 3. Treatment Recommendations: NOF guidelines recommend consideration for treatment in postmenopausal women and men age 50 and older presenting with the following: -A hip or vertebral (clinical or morphometric) fracture. -T-score less than or equal to -2.5 at the femoral neck or spine after appropriate evaluation to exclude secondary causes. -Low bone mass at the hip or spine and a 10-year fracture probability by FRAX of greater than or equal to 3% for hip fracture or greater than or equal to 20% for major osteoporotic fracture based on the [place] adapted WHO algorithm. 4. Other Recommendations: All treatment decisions require clinical judgment and consideration of individual patient factors, including patient preferences, comorbidities, previous drug use, risk factors not captured in the FRAX model (e.g. frailty, falls, vitamin D deficiency, increased bone turnover, interval significant decline in bone density) and possible under or overestimation of fracture risk by FRAX. Additional medical evaluation for secondary cause of low bone mineral density may be appropriate. FUTURE SCAN RECOMMENDATION: People with diagnosed cases of osteoporosis or at high risk for fracture should have regular bone mineral density tests. For patients eligible for Medicare, routine testing is allowed once every 2 years. The testing frequency can be increased to one year for patients who have rapidly progressing disease, those who are receiving or discontinuing medical therapy to restore bone mass, or have additional risk factors.
== END 2023-09-14 10:26 | disposition home or self-care (01) ==
LOC: HO.MAMMO 10:25
PROVIDERS: PCP Internal Medicine; Visit Provider Internal Medicine
DX: Z12.31 Encounter for screening mammogram for malignant neoplasm of breast (principal); Z13.820 Encounter for screening for osteoporosis; Z78.0 Asymptomatic menopausal state
CPT/HCPCS: 77063; 77067; 77080

== ENCOUNTER → 2023-09-14 11:00 | Outpatient (BNV) | payer OTHER, SELFPAY | PROVIDERS: PCP Internal Medicine; Visit Provider Radiology Diagnostic Radiology | DX: Z12.31 Encounter for screening mammogram for malignant neoplasm of breast (principal) | CPT/HCPCS: 77063; 77067 ==

== ENCOUNTER 2023-10-11 15:20 | Outpatient (AMB) | payer OTHER, SELFPAY ==
[2023-10-11 15:39] VITALS: BP 160/80; PULSE 89; BMI 38.5
--- NOTE | 2023-10-11 15:39 | MHC.OFFVIS ---
Intake Vital Signs 10/11/23 15:39 Height 5 ft 3.5 in Weight 220 lb 10.923 oz BMI 38.5 BP 160/80 H Blood Pressure Location Lt brachial Position Sitting Pulse 89 Pulse Source Pulse Oximeter Intake Visit Reasons: f/u pancreolytic diabetes-lvm Intake Note: Patient presents today to follow up on Pancreolytic Diabetes. Last Diabetic Eye exam: 10/2022 Last Podiatry Visit: None Random Glucose: 173 mg/dl HgA1C: 8.0% Feed Inspection Supervisor Required: No Accompanied by: Self / Same As Patient Allergies Penicillins [PENICILLINS] Allergy (Severe, Verified 10/11/23 15:51) RASH Sulfa (Sulfonamide Antibiotics) [SULFA (SULFONAMIDE ANTIBIOTICS)] Allergy (Severe, Verified 10/11/23 15:51) THROMBOCYTOPENIA, severe penicillin V Allergy (Unknown, Verified 10/11/23 15:51) rash HPI HPI Comments History of Present Illness Details Patient is 63 yo female with insulin deficent DM diagnosed about 30 years ago, who presents for management of diabetes. . . She did have negative antibodies. Past medical history: HTN, HLD, pancreatitis Micro and macrovascular complications: no known complications Diabetes medications: Lantus 26 units. She will also use Humalog 10 units for breakfast, and 14 units for lunch and dinner. She may add plus 2 units for blood sugar over 200 and for every 50 mg above 200 to a max of +8 units. She had pancreatitis with GLP-1 in past. Blood glucose monitoring: Dexcom download shows she is using the sensor 100% of the time. Average glucose is 194 with G mi of 8.0% in standard deviations 64. 46% range with 53% hyperglycemia and 1% hypoglycemia. And shows rise after lunch. Symptoms reported: denies numbness, tingling, cramping in lower extremities Hypoglycemia: rare Hyperglycemia: denies urinary frequency Blood glucose monitoring: Unfortunately did not bring logbook or glucometer to appt Exercise: . 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 Last optho: 10/2023 has retinopathy - appt 11/2023 Laboratory Tests she had been waiting to get it an Omnipod pump and Dexcom sensor. Omnipod was denied by insurance 12/26/21 12/26/21 12/29/21 08:15 08:15 07:40 Creatinine Estimated GFR Hemoglobin A1c % 13.5 Triglycerides Cholesterol LDL Cholesterol Di rect LDL Cholesterol, C alc HDL Cholesterol 25-OH Vitamin D To florencio 22.5 Microalb/Creat Rat io 373.1 DORA Antibody 12/29/21 12/29/21 07:45 07:45 Creatinine 0.63 Estimated GFR > 60 Hemoglobin A1c % Triglycerides 143 Cholesterol 207 LDL Cholesterol Di rect 128 H LDL Cholesterol, C alc 135 HDL Cholesterol 44 25-OH Vitamin D To florencio Microalb/Creat Rat io DORA Antibody <5 12/29/21 07:45 Islet Cell Ab Scre en NEGATIVE Islet Cell Ab Tite r TNP [facility] Medical History 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 Absence of acromegalic features. Neck exam reveals nl size thyroid about 15 gms. No thyroid nodules palpable. No carotid bruits present. Lungs CTA. Heart S1 S2, Reg R/R. No M/R/ G. Skin exam reveals absence of vitiligo or acanthosis nigricans. Abdominal exam reveals Soft NT/ND with NA BS. No organomegaly present. skin is tanned around the lower extremity. Neck Other: . Extrem Other: Visual exam of foot performed. No ulcerations or open lesions. No onchomycosis, no callouses.Pulses 2 + distally Sensation intact to monofilament exam. 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 macrovascular complications . Plan is increase the Humalog by 4 units prior to breakfast and lunch. Will send patient to medication administration professional for learn carbohydrate counting. 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
[2023-10-11 15:52] LABS: Glucose, Whole Blood 173 mg/dL (60-115)
== END 2023-10-11 16:01 | disposition home or self-care (01) ==
PROVIDERS: PCP Internal Medicine; Visit Provider Internal Medicine Endocrinology, Diabetes & Metabolism
DX: E13.9 Other specified diabetes mellitus without complications (principal); S36.209S Unspecified injury of unspecified part of pancreas, sequela
CPT/HCPCS: 99214

== ENCOUNTER → 2023-10-11 15:20 | Outpatient (BNVA) | payer OTHER, SELFPAY | PROVIDERS: PCP Internal Medicine; Visit Provider Internal Medicine Endocrinology, Diabetes & Metabolism | DX: E13.9 Other specified diabetes mellitus without complications (principal); S36.209S Unspecified injury of unspecified part of pancreas, sequela | CPT/HCPCS: 82947; 83036 ==

== ENCOUNTER 2023-10-18 08:03 | Outpatient (AMB) | payer OTHER, SELFPAY ==
[2023-10-18 08:10] VITALS: BP 138/90; PULSE 97; TEMP 36.7; O2SAT 97; BMI 38.7
--- NOTE | 2023-10-18 08:10 | MHC.OFFWIV ---
Intake Vital Signs 10/18/23 08:10 Height 5 ft 3.5 in Weight 222 lb BMI 38.7 BP 138/90 H Blood Pressure Location Lt brachial Position Sitting Pulse 97 Pulse Source Pulse Oximeter Temp 98.0 F Temp Source Oral Pulse Oximetry (%) 97 Intake Visit Reasons: EP RT eye ?Infection Patient Tobacco Use Status: Current everyday Tobacco user Allergies Penicillins [PENICILLINS] Allergy (Severe, Verified 10/18/23 08:10) RASH Sulfa (Sulfonamide Antibiotics) [SULFA (SULFONAMIDE ANTIBIOTICS)] Allergy (Severe, Verified 10/18/23 08:10) THROMBOCYTOPENIA, severe penicillin V Allergy (Unknown, Verified 10/18/23 08:10) rash HPI HPI Comments History of Present Illness Details presents to the walkin today for irritation to the right eye for last 2 days. Patient states eye was crusted shut when she awoke this morning. Coworker had same last week Denies pain to the eye, denies vision changes, headache. Patient denies pain with eye movement. Denies fever, cough, sinus congestion, sore throat or ear ache. Denies trauma to the eye or foreign body sensation. 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 HLD (hyperlipidemia) Hypertension Asthma Nephrolithiasis Diabetes Surgical History History of knee replacement Family History Family/Other No known health problems Social History Household Members: Spouse Housing: House Do you presently have visiting nurse or other home services: No Alcohol intake: never Patient Tobacco Use Status: Current everyday Tobacco user service: No Current occupational status: disabled Review of Systems Const All systems reviewed & are unremarkable except as noted in HPI and below Physical Exam Vital Signs: Last Vital Signs Temp 98.0 F 10/18/23 08:10 Pulse 97 10/18/23 08:10 BP 138/90 H 10/18/23 08:10 Pulse Ox 97 10/18/23 08:10 BMI result Body Mass Index 38.7 General: awake, alert, oriented. Answers questions appropriately. Fully engaged in examination. Skin: warm, dry, intact HEENT: Normocephalic. Hearing intact. TMs intact bilaterally, without redness. posterior pharynx without erythema or exudate. right eye: + mucoid discharge, conjunctival injection Cardiac: External chest normal in appearance. Respiratory: No cough, audible wheezing or stridor. LSCTAB Abdomen: without gross distension. MS: No obvious swelling or deformities. Neurological: Oriented to person, place, time and situation. Thought process intact. Psychiatric: Appropriate mood and affect. Good judgment and insight. Assessment & Plan Assessment & Plan (1) Conjunctivitis: Code(s): H10.9 - Unspecified conjunctivitis Plan Patient presents to the [facility] for right eye irritation +mucoid discharge and conjunctival injection noted to right eye consistent with conjunctivitis. polymyxin B sulf-trimethoprim 10,000 unit- 1 mg/mL, 1 drop to eye four times daily. Avoid touching, rubbing the eyes. Do not use same area of facecloth to clean both eyes. Wash hands often. All questions and concerns were answered during the visit. Patient agrees with the plan. Follow up with pcp or return to [facility] for any new or worsening symptoms. Medications: New polymyxin B sulf-trimethoprim 10,000 unit- 1 mg/mL while awake; do not exceed 6 doses in 24 hours 1 drp ophthalmic (eye) QID 7 days 10 mL 0RF Coding Level of Care Code Est Pt Level 3 (85513) Diagnoses Conjunctivitis H10.9
== END 2023-10-18 10:35 | disposition home or self-care (01) ==
PROVIDERS: PCP Internal Medicine; Visit Provider Registered Nurse Emergency
DX: H10.9 Unspecified conjunctivitis (principal)
CPT/HCPCS: 99213

== ENCOUNTER 2023-10-25 15:23 | Outpatient (AMB) | payer OTHER, SELFPAY ==
--- NOTE | 2023-10-25 15:44 | A.OFFVIS_ITS ---
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 Required: No Accompanied by: Self / Same As Patient Allergies Penicillins [PENICILLINS] Allergy (Severe, Verified 10/18/23 08:10) RASH Sulfa (Sulfonamide Antibiotics) [SULFA (SULFONAMIDE ANTIBIOTICS)] Allergy (Severe, Verified 10/18/23 08:10) THROMBOCYTOPENIA, severe penicillin V Allergy (Unknown, Verified 10/18/23 08:10) rash HPI Comprehensive Diabetes Asmnt Most Recent Diabetes Results: Hemoglobin A1c > 14.0 % 05/22/19 Microalb/Creat Ratio 340.1 ug/mg cr 12/29/22 Cholesterol 145 mg/dL (<200) 07/08/23 HDL Cholesterol 47 mg/dL (>40) 07/08/23 Triglycerides 81 mg/dL (<150) 07/08/23 Creatinine 0.77 mg/dL (0.5-1.4) 03/16/23 Blood Urea Nitrogen 13 mg/dL (9-16) 03/16/23 Sodium 139 mmol/L (135-145) 03/16/23 Potassium 4.4 mmol/L (3.3-5.1) 03/16/23 Chloride 101 mmol/L (96-108) 03/16/23 Carbon Dioxide 29 mmol/L (22-29) 03/16/23 Calcium 10.2 mg/dL (8.4-10.2) 03/16/23 AST 24 U/L (5-31) 07/08/23 ALT 21 U/L (0-31) 07/08/23 Total Protein 6.7 g/dL (6.5-8.0) 07/08/23 Albumin 3.9 g/dL (3.5-5.0) 07/08/23 [facility] Medical History 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 HLD (hyperlipidemia) Hypertension Asthma Nephrolithiasis Diabetes Surgical History History of knee replacement Family History Family/Other No known health problems Social History Household Members: Spouse Housing: House Do you presently have visiting nurse or other home services: No Alcohol intake: never Patient Tobacco Use Status: Current everyday Tobacco user service: No Current occupational status: disabled Assessment & Plan Assessment & Plan (1) 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 Yes Patient's average glucose for the past 2 weeks to 252 mg/dL Patient above target 77% Patient at target 23% Patient below target 1% Patient? reports glycemic control as: Poor Most recent Hgb A1C: 8.0% 09/2023 Frequency of low B-3 times a week Frequency of high BG: daily Has pt been on a pump in the past? no Reviewed insulin pump basics today with Patient . Explained pros and cons of insulin pumps. Showed pt various pumps, infusion sets, and cgms currently available. Reviewed need to wear pump 24/ and need to change infusion set every 3 days. Also stressed importance of frequent BG checks, 4x daily minimum or use of CGM Patient demonstrated motivation for continued insulin pump education and understands the need to complete education prior to starting insulin pump for best outcome. 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
== END 2023-10-25 15:44 | disposition home or self-care (01) ==
LOC: HO.ENCR 15:30
PROVIDERS: PCP Internal Medicine; Visit Provider Registered Nurse Diabetes Educator
DX: E13.9 Other specified diabetes mellitus without complications (principal); S36.209S Unspecified injury of unspecified part of pancreas, sequela

== ENCOUNTER → 2023-10-25 15:23 | Outpatient (BNVA) | payer OTHER, SELFPAY | PROVIDERS: PCP Internal Medicine; Visit Provider Registered Nurse Diabetes Educator | DX: E13.9 Other specified diabetes mellitus without complications (principal); S36.209S Unspecified injury of unspecified part of pancreas, sequela | CPT/HCPCS: 99211 ==

== ENCOUNTER 2023-12-03 13:53 | Outpatient (AMB) | payer OTHER, SELFPAY ==
--- NOTE | 2023-12-03 13:55 | MHC.OFFWIV ---
Intake Vital Signs 12/03/23 13:56 Height 5 ft 3.5 in BP 160/94 H Blood Pressure Location Rt brachial Position Sitting Pulse 97 Pulse Source Pulse Oximeter Temp 98.4 F Temp Source Oral Pulse Oximetry (%) 99 Oxygen Delivery Method Room Air Intake Visit Reasons: EP bronchial cough (lobby) Intake Note: pt is here for a wheezing cough and has a headache and body ache pt says she has had the cough for about a week she denies congestion or fever Patient Tobacco Use Status: Current everyday Tobacco user Allergies Penicillins [PENICILLINS] Allergy (Severe, Verified 12/03/23 14:00) RASH Sulfa (Sulfonamide Antibiotics) [SULFA (SULFONAMIDE ANTIBIOTICS)] Allergy (Severe, Verified 12/03/23 14:00) THROMBOCYTOPENIA, severe penicillin V Allergy (Unknown, Verified 12/03/23 14:00) rash HPI HPI Comments History of Present Illness Details This is a 63-year-old female with past medical history significant for essential hypertension, hyperlipidemia, insulin-dependent diabetes mellitus who presented to the walk-in clinic complaining of a persistent dry cough x1 week. Patient states she has had a nagging/hacking dry cough for the past 1 week without sputum production and without fever/chills. She she has had some wheezing with the cough as well. She denies any chest pain or shortness of breath but does report some mild muscle soreness due to the cough. She otherwise denies any nasal/sinus congestion/rhinorrhea, sore throat, or other viral URI symptoms. 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 HLD (hyperlipidemia) Hypertension Asthma Nephrolithiasis Diabetes Surgical History History of knee replacement Family History Family/Other No known health problems Social History Household Members: Spouse Housing: House Do you presently have visiting nurse or other home services: No Alcohol intake: never Patient Tobacco Use Status: Current everyday Tobacco user service: No Current occupational status: disabled Review of Systems Const All systems reviewed & are unremarkable except as noted in HPI and below Reports no additional complaints Eyes Reports no additional complaints ENT Reports no additional complaints Card Reports no additional complaints Resp Reports no additional complaints GI Reports no additional complaints Reports no additional complaints Musc Reports no additional complaints Skin/Breast Reports system reviewed and no additional complaints, except as documented Neuro Reports no additional complaints Psych Reports no additional complaints Endo Reports no additional complaints Wero/Lymph Reports no additional complaints Aller/Immun Reports no additional complaints Physical Exam Const Other: Vital signs reviewed. Constitutional: Non-toxic appearing. No acute distress. Well-developed and well-nourished. HEENT: Normocephalic and atraumatic. Skin: Warm and dry. No rashes or lesions noted. Neck: Full and painless range of motion. No cervical lymphadenopathy. Cardio: Regular rate and rhythm. No murmurs, gallops, or rubs. No lower extremity edema. No JVD. Pulmonary: No respiratory distress. No accessory muscle usage. Clear to auscultation bilaterally without wheezing, crackles, or rhonchi although she does have some mild wheezing with coughing. Gastrointestinal: Soft, nontender, and nondistended in all 4 quadrants. Musculoskeletal: Normal range of motion in joints throughout the body. No deformity or other signs of injury. Neuro: Alert and oriented x4. Cranial nerves 2-12 grossly intact. No focal deficits appreciated. Psych: Normal mood and affect. Assessment & Plan Assessment & Plan (1) Acute cough: Code(s): R05.1 - Acute cough Plan: This is a 63-year-old female who presents to the office complaining of persistent dry cough x1 week. On physical examination, she has occasional wheezing with the cough. History physical appears to be most consistent with an acute bronchitis. Patient was given a prescription for p.o. prednisone 40 mg daily x5 days, p.o. azithromycin 500 mg today followed by 250 mg daily x4 days, and PO benzonatate 100 mg 3 times daily as needed for cough. Patient was advised to follow-up here or proceed to the emergency room if she were to develop any fever/chills, sputum production, or chest pain/shortness of breath. Patient verbalized understanding and she is in agreement with the plan. Patient was also made aware that steroids may increase her blood sugar so patient will continue to monitor her blood sugars closely. Medications: New prednisone 40 mg (2 x 20 mg) PO DAILY 10 tabs 0RF benzonatate 100 mg PO TID PRN 20 caps 0RF cough azithromycin For 250 mg dose pack: take 500 mg today (day 1), then 250 mg for 4 days (days 2-5) PO 6 tabs 0RF Coding Level of Care Code Est Pt Level 3 (45873) Diagnoses Acute cough R05.1
[2023-12-03 13:56] VITALS: BP 160/94; PULSE 97; TEMP 36.9; O2SAT 99
== END 2023-12-03 14:17 | disposition home or self-care (01) ==
PROVIDERS: PCP Internal Medicine; Visit Provider Physician Assistant Medical
DX: R05.1 Acute cough (principal)
CPT/HCPCS: 99213

== ENCOUNTER 2024-01-04 11:16 | Outpatient (REF) | payer OTHER, SELFPAY ==
[2024-01-04 11:41] LABS: MANUAL DIFF FLAG NO
[2024-01-04 11:56] LABS: Appearance Urine Cloudy; Color Urine Yellow; Glucose Urine UA Negative (Negative); Leukocyte Esterase Urine Moderate (2+) (Negative); Nitrite Urine Negative (Negative); UMIC TRIGGER UACC YES; Urine Blood Negative (Negative); Urine Ketones Negative (Negative); Urine Protein 300 (3+) mg/dL (Neg-Trace)
[2024-01-04 11:58] LABS: Basophils Percent Auto 0.7 % (0-2); Eosinophils Absolute Auto 0.2 X10*3/uL (0.0-0.4); Eosinophils Percent Auto 2.5 % (0-4); Hematocrit 46.9 % (37.0-47.0); Hemoglobin 15.2 g/dl (12.0-16.0); Imm Gran Abs Auto 0.02 X10*3/uL (0.00-0.03); Imm Gran Pct Auto 0.3 % (0.0-0.4); Lymphocytes Absolute Auto 1.9 X10*3/uL (1.2-4.9); Lymphocytes Percent Auto 31.3 % (20-40); Mean Corpuscular HGB Conc 32.4 g/dl (31.0-35.0); Mean Corpuscular Hemoglobin 28.8 pg (27.0-33.0); Mean Platelet Volume 11.1 fL (9.4-12.3); Monocytes Absolute Auto 0.3 X10*3/uL (0.1-1.2); Monocytes Percent Auto 5.4 % (2-11); Neutrophils Absolute Auto 3.6 x10*3/uL (2.0-8.3); Neutrophils Percent Auto 59.8 % (45-73); Platelet Count 314 X10*3/uL (160-400); Red Blood Count 5.27 X10*6/uL (4.20-5.50); Red Cell Distribution Width 12.6 % (11.0-16.0); White Blood Count 5.9 X10*3/uL (4.8-10.8)
[2024-01-04 11:59] LABS: Bacteria Urine 3+ (None Seen); Hyaline Casts Urine 0-2 /LPF (0-2); RBC Urine 0-2 /HPF (0-2)
[2024-01-04 12:03] LABS: UACC Culture Trigger YES
[2024-01-04 12:09] LABS: Estimated Average Glucose 229 mg/dL; Hemoglobin A1c % 9.6 % (<6.0)
[2024-01-04 12:16] LABS: Alanine Aminotransferase 20 U/L (0-31); Albumin Level 3.8 g/dL (3.5-5.0); Alkaline Phosphatase 97 U/L (39-117); Anion Gap 14 (12-20); Aspartate Amino Transferase 28 U/L (5-31); Bilirubin Total 1.2 mg/dL (0.0-1.0); Blood Urea Nitrogen 19 mg/dL (9-16); Calcium 9.6 mg/dL (8.4-10.2); Carbon Dioxide 28 mmol/L (22-29); Chloride 104 mmol/L (96-108); Cholesterol 212 mg/dL (<200); Estimated Glomerular Filt Rate > 60; Glucose Fasting 128 mg/dL (60-99); HDL Cholesterol 60 mg/dL (>40); LDL Cholesterol Calculated 131 mg/dL (<100); Potassium 4.2 mmol/L (3.3-5.1); Sodium 142 mmol/L (135-145); Total Protein 6.7 g/dL (6.5-8.0); Triglycerides 109 mg/dL (<150)
[2024-01-04 12:18] LABS: Vitamin D 25-OH Total 25.2 ng/mL (>30)
[2024-01-04 12:34] LABS: Creatinine Urine 113.61 mg/dL
[2024-01-04 12:58] LABS: Microalbum/Creatinine Ratio Ur 1356.3 ug/mg cr (<30)
== END 2024-01-04 11:17 | disposition home or self-care (01) ==
LOC: HO.LNP 11:16
PROVIDERS: Visit Provider Internal Medicine
DX: Z00.00 Encounter for general adult medical examination without abnormal findings (principal); E78.00 Pure hypercholesterolemia, unspecified; I10 Essential (primary) hypertension; E55.9 Vitamin D deficiency, unspecified; E11.9 Type 2 diabetes mellitus without complications; R82.90 Unspecified abnormal findings in urine
CPT/HCPCS: 80053; 80061; 81001; 82043; 82306; 82570; 83036; 85025; 87086

== ENCOUNTER 2024-02-09 14:14 | Outpatient (AMB) | payer OTHER, SELFPAY ==
--- NOTE | 2024-02-09 14:18 | A.OFFVIS_ITS ---
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 Required: No Accompanied by: Self / Same As Patient Allergies Penicillins [PENICILLINS] Allergy (Severe, Verified 02/09/24 14:24) RASH Sulfa (Sulfonamide Antibiotics) [SULFA (SULFONAMIDE ANTIBIOTICS)] Allergy (Severe, Verified 02/09/24 14:24) THROMBOCYTOPENIA, severe penicillin V Allergy (Unknown, Verified 02/09/24 14:24) rash Medication List - Last Reconciled 02/09/24 by Brandon Gomez MD albuterol sulfate 90 mcg/actuation 2 puffs inhalation Q4H PRN amlodipine 1 tab PO DAILY azithromycin For 250 mg dose pack: take 500 mg today (day 1), then 250 mg for 4 days (days 2-5) PO benzonatate 100 mg PO TID PRN blood sugar diagnostic (Contour Next Test Strips) As directed blood-glucose meter (Contour Next Meter) As directed blood-glucose sensor (Dexcom G7 Sensor device) As directed glucagon 3 mg/actuation (Baqsimi) 3 mg intranasal ONCE 30 days Humalog KwikPen Insulin (insulin lispro) 10 - 22 units (0.1 - 0.22 mL) subcut TID 25 days NS insulin glargine (Lantus Solostar U-100 Insulin) 26 units (0.26 mL) subcut QPM insulin pump cart,auto,BT-cntr (Omnipod 5 G6 Intro Kit (Gen 5) subcutaneous cartridge with controller) As directed insulin pump cart,auto,BT-cntr (Omnipod 5 G6 Intro Kit (Gen 5) subcutaneous cartridge with controller) As directed lisinopril-hydrochlorothiazide 20-25 mg 1 tab PO BID 90 days pen needle, diabetic (BD Ultra-Fine Tammy Pen Needle) As directed four times a day pen needle, diabetic (BD Ultra-Fine Mini Pen Needle) As directed 4 times a day pen needle, diabetic (BD Ultra-Fine Tammy Pen Needle) As directed five times a day prednisone 40 mg (2 x 20 mg) PO DAILY rosuvastatin 40 mg PO DAILY sertraline 1 tab PO DAILY HPI Comments Details: Patient is 63 yo female with insulin deficent DM diagnosed about 30 years ago, who presents for management of diabetes. . . She did have negative antibodies. Past medical history: HTN, HLD, pancreatitis Micro and macrovascular complications: no known complications Diabetes medications: Lantus 28 units. She will also use Humalog 14 units for breakfast, and 18 units for lunch and dinner. She may add plus 2 units for blood sugar over 200 and for every 50 mg above 200 to a max of +8 units. She had pancreatitis with GLP-1 in past. Blood glucose monitoring: Dexcom download shows she is using the sensor 64% of the time. Average glucose is 251 standard deviations 78. 19% range with 80% hyperglycemia and 1% hypoglycemia. And shows persistent hyperglycemia throughout the day with a post-breakfast rising glucose Symptoms reported: denies numbness, tingling, cramping in lower extremities Hypoglycemia: rare Hyperglycemia: denies urinary frequency Exercise: . 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 Last optho: has retinopathy - appt 11/2022 Laboratory Tests she had been waiting to get it an Omnipod pump and Dexcom sensor. Omnipod was denied by insurance 12/26/21 12/26/21 12/29/21 08:15 08:15 07:40 Creatinine Estimated GFR Hemoglobin A1c % 13.5 Triglycerides Cholesterol LDL Cholesterol Direct LDL Cholesterol, Calc HDL Cholesterol 25-OH Vitamin D Total 22.5 Microalb/Creat Ratio 373.1 DORA Antibody 12/29/21 12/29/21 07:45 07:45 Creatinine 0.63 Estimated GFR > 60 Hemoglobin A1c % Triglycerides 143 Cholesterol 207 LDL Cholesterol Direct 128 H LDL Cholesterol, Calc 135 HDL Cholesterol 44 25-OH Vitamin D Total Microalb/Creat Ratio DORA Antibody <5 12/29/21 07:45 Islet Cell Ab Screen NEGATIVE Islet Cell Ab Titer TNP [facility] Medical History 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 Absence of acromegalic features. Neck exam reveals nl size thyroid about 15 gms. No thyroid nodules palpable. No carotid bruits present. Lungs CTA. Heart S1 S2, Reg R/R. No M/R/ G. Skin exam reveals absence of vitiligo or acanthosis nigricans. Abdominal exam reveals Soft NT/ND with NA BS. No organomegaly present. skin is tanned around the lower extremity. Neck Other: . Extrem Other: Visual exam of foot performed. No ulcerations or open lesions. No onchomycosis, no callouses.Pulses 2 + distally Sensation intact to monofilament exam. 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 macrovascular complications . Plan is increase the Lantus to 30 units and possibly 32 units if continued a.m. hyperglycemia would also increase the a.m. Humalog to 16 units . She would also be a good candidate if not for the Omnipod for the iLet pump as she has frequent fluctuations in blood sugar and his insulin deficient due to pancreolytic diabetes. She is going to investigate further getting the iLet pump and will speak to the disability representative from the company again. She might be willing to pay [id number] of insurance does not cover (2) HLD (hyperlipidemia): Code(s): E78.5 - Hyperlipidemia, unspecified Category: Medical Plan: LDL not at goal at maximal doses of rosuvastatin . 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
[2024-02-09 14:19] VITALS: BP 168/90; PULSE 79; BMI 37.6
[2024-02-09 14:31] LABS: Glucose, Whole Blood 144 mg/dL (60-115)
== END 2024-02-09 15:02 | disposition home or self-care (01) ==
PROVIDERS: PCP Internal Medicine; Visit Provider Internal Medicine Endocrinology, Diabetes & Metabolism
DX: E13.9 Other specified diabetes mellitus without complications (principal); S36.209S Unspecified injury of unspecified part of pancreas, sequela; E78.5 Hyperlipidemia, unspecified
CPT/HCPCS: 99214

== ENCOUNTER → 2024-02-09 14:14 | Outpatient (BNVA) | payer OTHER, SELFPAY | PROVIDERS: PCP Internal Medicine; Visit Provider Internal Medicine Endocrinology, Diabetes & Metabolism | DX: E13.9 Other specified diabetes mellitus without complications (principal); S36.209S Unspecified injury of unspecified part of pancreas, sequela; E78.5 Hyperlipidemia, unspecified | CPT/HCPCS: 82947 ==

== ENCOUNTER 2024-02-17 07:20 | Outpatient (AMB) | payer OTHER, SELFPAY ==
--- NOTE | 2024-02-17 07:45 | A.OFFVIS_ITS ---
Intake Intake Visit Reasons: f/u pancreolytic diabetes/LVM Weld Inspector Required: No Accompanied by: Self / Same As Patient Allergies Penicillins [PENICILLINS] Allergy (Severe, Verified 02/09/24 14:24) RASH Sulfa (Sulfonamide Antibiotics) [SULFA (SULFONAMIDE ANTIBIOTICS)] Allergy (Severe, Verified 02/09/24 14:24) THROMBOCYTOPENIA, severe penicillin V Allergy (Unknown, Verified 02/09/24 14:24) rash HPI Comprehensive Diabetes Asmnt Most Recent Diabetes Results: Hemoglobin A1c > 14.0 % 05/22/19 Microalb/Creat Ratio 1356.3 ug/mg cr (<30) H 01/04/24 Cholesterol 212 mg/dL (<200) H 01/04/24 HDL Cholesterol 60 mg/dL (>40) 01/04/24 Triglycerides 109 mg/dL (<150) 01/04/24 Creatinine 0.76 mg/dL (0.5-1.4) 01/04/24 Blood Urea Nitrogen 19 mg/dL (9-16) H 01/04/24 Sodium 142 mmol/L (135-145) 01/04/24 Potassium 4.2 mmol/L (3.3-5.1) 01/04/24 Chloride 104 mmol/L (96-108) 01/04/24 Carbon Dioxide 28 mmol/L (22-29) 01/04/24 Calcium 9.6 mg/dL (8.4-10.2) 01/04/24 AST 28 U/L (5-31) 01/04/24 ALT 20 U/L (0-31) 01/04/24 Total Protein 6.7 g/dL (6.5-8.0) 01/04/24 Albumin 3.8 g/dL (3.5-5.0) 01/04/24 [facility] Medical History 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 HLD (hyperlipidemia) Hypertension Asthma Nephrolithiasis Diabetes Surgical History History of knee replacement Family History Family/Other No known health problems Social History Household Members: Spouse Housing: House Do you presently have visiting nurse or other home services: No Alcohol intake: never Patient Tobacco Use Status: Current everyday Tobacco user service: No Current occupational status: disabled Assessment & Plan Assessment & Plan (1) 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 0% Hyperglycemia:? 76% Time in Range:? 24% Average glucose for the last 2 weeks 251? mg/dL Patient's last A1c on 01/04/2024 9.6% Patient reports being frustrated with glucose control. At this time she has decided that she would like to submit order for iLet insulin pump to see if her insurance will cover it. In the meantime recommended patient change insulin to carb ratio from 1-6 to 1-5 Correction factor from 1-20 to 1-15 At last visit with Dr. Gomez he increased Lantus to 32 units, would not recommend increasing Lantus at this time patient has downward trend overnight put her greater risk for hypoglycemia Calculated patient's total daily dose at 68 units Reviewed how to interpret trend arrows Reminded patient that to check finger sticks if symptoms do not match sensor r eading. Discussed lag time between finger stick and sensor data.? Patient able to insert sensor independently at home without issue.? Portions of this note were created using voice recognition software, please excuse any words or phrases that may have been misinterpreted. Patient Instructions: If insulin pump is approved. 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
== END 2024-02-17 07:47 | disposition home or self-care (01) ==
PROVIDERS: PCP Internal Medicine; Visit Provider Registered Nurse Diabetes Educator
DX: E13.9 Other specified diabetes mellitus without complications (principal); S36.209S Unspecified injury of unspecified part of pancreas, sequela

== ENCOUNTER → 2024-02-17 07:20 | Outpatient (BNVA) | payer OTHER, SELFPAY | PROVIDERS: PCP Internal Medicine; Visit Provider Registered Nurse Diabetes Educator | DX: E13.9 Other specified diabetes mellitus without complications (principal); S36.209S Unspecified injury of unspecified part of pancreas, sequela | CPT/HCPCS: 99211 ==

== ENCOUNTER 2024-04-13 06:56 | Outpatient (AMB) | payer OTHER, SELFPAY ==
--- NOTE | 2024-04-13 08:12 | MHC.AMDMED ---
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 Required: No Accompanied by: Self / Same As Patient Allergies Penicillins [PENICILLINS] Allergy (Severe, Verified 02/09/24 14:24) RASH Sulfa (Sulfonamide Antibiotics) [SULFA (SULFONAMIDE ANTIBIOTICS)] Allergy (Severe, Verified 02/09/24 14:24) THROMBOCYTOPENIA, severe penicillin V Allergy (Unknown, Verified 02/09/24 14:24) rash HPI Comprehensive Diabetes Asmnt Most Recent Diabetes Results: Microalb/Creat Ratio 1356.3 ug/mg cr (<30) H 01/04/24 Cholesterol 212 mg/dL (<200) H 01/04/24 HDL Cholesterol 60 mg/dL (>40) 01/04/24 Triglycerides 109 mg/dL (<150) 01/04/24 Creatinine 0.76 mg/dL (0.5-1.4) 01/04/24 Blood Urea Nitrogen 19 mg/dL (9-16) H 01/04/24 Sodium 142 mmol/L (135-145) 01/04/24 Potassium 4.2 mmol/L (3.3-5.1) 01/04/24 Chloride 104 mmol/L (96-108) 01/04/24 Carbon Dioxide 28 mmol/L (22-29) 01/04/24 Calcium 9.6 mg/dL (8.4-10.2) 01/04/24 AST 28 U/L (5-31) 01/04/24 ALT 20 U/L (0-31) 01/04/24 Total Protein 6.7 g/dL (6.5-8.0) 01/04/24 Albumin 3.8 g/dL (3.5-5.0) 01/04/24 [facility] Medical History 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 HLD (hyperlipidemia) Hypertension Asthma Nephrolithiasis Diabetes Surgical History History of knee replacement Family History Family/Other No known health problems Social History Household Members: Spouse Housing: House Do you presently have visiting nurse or other home services: No Alcohol intake: never Patient Tobacco Use Status: Current everyday Tobacco user service: No Current occupational status: disabled Assessment & Plan Assessment & Plan (1) 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 The following topics were reviewed today: -Pump therapy basic concepts: Basal/bolus -Device settings: Bluetooth/mobile connection (if applicable), correct date and time, sound volume -CGM settings(if integrated system): CGM graft views and trend arrows, alerts and alarms, Start new sensor Insulin delivery settings Instructed patient to only use room temperature insulin, how to load cartridge or fill pod, with insulin. Fill tubing and cannula (if applicable) Inserting infusion set or starting pod Troubleshooting after starting new pod or inserting new insulin set: Occlusion, adhesive tape sensitivity, redness Check BG 2 hours after site change Safety information: Importance of a backup plan, for manual injections, proper prescriptions and emergency supplies ketone strips, and rules for testing for ketones Patient was able to insert insulin set today without difficulty. Patient understands the basic concepts of pump therapy, how to give insulin for meals and snacks, how to troubleshoot for hyper and hypoglycemia. Patient will follow up with [facility] as instructed Patient will contact [facility] with questions or concerns, patient given IT number to support in any technical issues related to insulin pump Portions of this note were created using voice recognition software, please excuse any words or phrases that may have been misinterpreted. 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
== END 2024-04-13 08:56 | disposition home or self-care (01) ==
PROVIDERS: PCP Internal Medicine; Visit Provider Registered Nurse Diabetes Educator
DX: E13.9 Other specified diabetes mellitus without complications (principal); S36.209S Unspecified injury of unspecified part of pancreas, sequela

== ENCOUNTER → 2024-04-13 06:56 | Outpatient (BNVA) | payer OTHER, SELFPAY | PROVIDERS: PCP Internal Medicine; Visit Provider Registered Nurse Diabetes Educator | DX: Z46.81 Encounter for fitting and adjustment of insulin pump (principal); E13.9 Other specified diabetes mellitus without complications; S36.209S Unspecified injury of unspecified part of pancreas, sequela | CPT/HCPCS: 99211 ==

== ENCOUNTER 2024-04-19 07:22 | Outpatient (AMB) | payer OTHER, SELFPAY ==
--- NOTE | 2024-04-19 07:45 | MHC.AMDMED ---
Intake Intake Visit Reasons: 30 min Holistic Specialist Required: No Accompanied by: Self / Same As Patient Allergies Penicillins [PENICILLINS] Allergy (Severe, Verified 02/09/24 14:24) RASH Sulfa (Sulfonamide Antibiotics) [SULFA (SULFONAMIDE ANTIBIOTICS)] Allergy (Severe, Verified 02/09/24 14:24) THROMBOCYTOPENIA, severe penicillin V Allergy (Unknown, Verified 02/09/24 14:24) rash HPI Comprehensive Diabetes Asmnt Most Recent Diabetes Results: Hemoglobin A1c > 14.0 % 05/22/19 Microalb/Creat Ratio 1356.3 ug/mg cr (<30) H 01/04/24 Cholesterol 212 mg/dL (<200) H 01/04/24 HDL Cholesterol 60 mg/dL (>40) 01/04/24 Triglycerides 109 mg/dL (<150) 01/04/24 Creatinine 0.76 mg/dL (0.5-1.4) 01/04/24 Blood Urea Nitrogen 19 mg/dL (9-16) H 01/04/24 Sodium 142 mmol/L (135-145) 01/04/24 Potassium 4.2 mmol/L (3.3-5.1) 01/04/24 Chloride 104 mmol/L (96-108) 01/04/24 Carbon Dioxide 28 mmol/L (22-29) 01/04/24 Calcium 9.6 mg/dL (8.4-10.2) 01/04/24 AST 28 U/L (5-31) 01/04/24 ALT 20 U/L (0-31) 01/04/24 Total Protein 6.7 g/dL (6.5-8.0) 01/04/24 Albumin 3.8 g/dL (3.5-5.0) 01/04/24 [facility] Medical History 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 HLD (hyperlipidemia) Hypertension Asthma Nephrolithiasis Diabetes Surgical History History of knee replacement Family History Family/Other No known health problems Social History Household Members: Spouse Housing: House Do you presently have visiting nurse or other home services: No Alcohol intake: never Patient Tobacco Use Status: Current everyday Tobacco user service: No Current occupational status: disabled Assessment & Plan Assessment & Plan (1) 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 The following topics were reviewed today: -Pump therapy basic concepts: Basal/bolus -Always dose 15 minutes prior to meals - Off pump backup insulin plan ??? High Alert: 300 mg/dl ??? Low Alert: 75 mg/dl CGM: Patient above target 22.6% Patient at target 69.4% Patient below target 0.4% Patient's average glucose for the past 7 days 159 mg/dL TDD:67.8 units Basal:36.6 units Patient reports she is started getting hives, for the last 3 days asked if could be related to insulin. Patient has been using Humalog via insulin pump, suggested to patient it may be infusion set. If she would like to try different infusion set I could get her a sample. Patient reports she will continue to use the same infusion set but if hives do not resolve within a few days she will contact life skills educator for different infusion sets Instructed patient to only use room temperature insulin, how to load cartridge or fill pod, with insulin. Fill tubing and cannula (if applicable) Troubleshooting after starting new pod or inserting new insulin set: Occlusion, adhesive tape sensitivity, redness Check BG 2 hours after site change Reviewed Safety information: Importance of a backup plan, for manual injections, proper prescriptions and emergency supplies ketone strips, and rules for testing for ketones Patient understands the basic concepts of pump therapy, how to give insulin for meals and snacks, how to troubleshoot for hyper and hypoglycemia. Patient will follow [facility] with [facility] as instructed Patient will contact [facility] with questions or concerns, patient given IT number to support in any technical issues related to insulin pump Portions of this note were created using voice recognition software, please excuse any words or phrases that may have been misinterpreted. 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
== END 2024-04-19 08:25 | disposition home or self-care (01) ==
PROVIDERS: PCP Internal Medicine; Visit Provider Registered Nurse Diabetes Educator
DX: E13.9 Other specified diabetes mellitus without complications (principal); S36.209S Unspecified injury of unspecified part of pancreas, sequela

== ENCOUNTER → 2024-04-19 07:22 | Outpatient (BNVA) | payer OTHER, SELFPAY | PROVIDERS: PCP Internal Medicine; Visit Provider Registered Nurse Diabetes Educator | DX: Z46.81 Encounter for fitting and adjustment of insulin pump (principal); E13.9 Other specified diabetes mellitus without complications; S36.209S Unspecified injury of unspecified part of pancreas, sequela | CPT/HCPCS: 99211 ==

== ENCOUNTER 2024-04-27 07:00 | Outpatient (AMB) | payer OTHER, SELFPAY ==
--- NOTE | 2024-04-27 07:14 | MHC.AMDMED ---
Intake Intake Visit Reasons: 60 min/LVM Deputy Attorney General Required: No Accompanied by: Self / Same As Patient Allergies Penicillins [PENICILLINS] Allergy (Severe, Verified 02/09/24 14:24) RASH Sulfa (Sulfonamide Antibiotics) [SULFA (SULFONAMIDE ANTIBIOTICS)] Allergy (Severe, Verified 02/09/24 14:24) THROMBOCYTOPENIA, severe penicillin V Allergy (Unknown, Verified 02/09/24 14:24) rash HPI Comprehensive Diabetes Asmnt Most Recent Diabetes Results: Microalb/Creat Ratio 1356.3 ug/mg cr (<30) H 01/04/24 Cholesterol 212 mg/dL (<200) H 01/04/24 HDL Cholesterol 60 mg/dL (>40) 01/04/24 Triglycerides 109 mg/dL (<150) 01/04/24 Creatinine 0.76 mg/dL (0.5-1.4) 01/04/24 Blood Urea Nitrogen 19 mg/dL (9-16) H 01/04/24 Sodium 142 mmol/L (135-145) 01/04/24 Potassium 4.2 mmol/L (3.3-5.1) 01/04/24 Chloride 104 mmol/L (96-108) 01/04/24 Carbon Dioxide 28 mmol/L (22-29) 01/04/24 Calcium 9.6 mg/dL (8.4-10.2) 01/04/24 AST 28 U/L (5-31) 01/04/24 ALT 20 U/L (0-31) 01/04/24 Total Protein 6.7 g/dL (6.5-8.0) 01/04/24 Albumin 3.8 g/dL (3.5-5.0) 01/04/24 [facility] Medical History 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 HLD (hyperlipidemia) Hypertension Asthma Nephrolithiasis Diabetes Surgical History History of knee replacement Family History Family/Other No known health problems Social History Household Members: Spouse Housing: House Do you presently have visiting nurse or other home services: No Alcohol intake: never Patient Tobacco Use Status: Current everyday Tobacco user service: No Current occupational status: disabled Assessment & Plan Assessment & Plan (1) 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 The following topics were reviewed today: -Pump therapy basic concepts: Basal/bolus -Always dose 15 minutes prior to meals iLet Alerts: ??? High Alert: 300 mg/dl ??? Low Alert: 75 mg/dl CGM: Above target:21.5% At target: 78.3% Below target: 0.2% Patient's average glucose for the past 14 days 153 mg/dL TDD: 67.5 units Basal: 33.6 units Since the initiation of pump therapy patient has been getting hives, that itch and are raised from her skin in turn red. She has been taking antihistamine to control the symptoms. Today we trialed an alternative insulin delivery set. With today's visit instructed patient how to use the Inset. Patient given 4 samples. If hives resolve patient will contact reliable Diabetes to switch over to the Inset. Patient stated she is very happy with glucose levels since initiating pump therapy, and would like to continue. Instructed patient to only use room temperature insulin, how to load cartridge or fill pod, with insulin. Fill tubing and cannula (if applicable) Troubleshooting after starting new pod or inserting new insulin set: Occlusion, adhesive tape sensitivity, redness Check BG 2 hours after site change Reviewed Safety information: Importance of a backup plan, for manual injections, proper prescriptions and emergency supplies ketone strips, and rules for testing for ketones Patient understands the basic concepts of pump therapy, how to give insulin for meals and snacks, how to troubleshoot for hyper and hypoglycemia. Patient will follow up with [facility] as instructed Patient will contact [facility] with questions or concerns, patient given IT number to support in any technical issues related to insulin pump Portions of this note were created using voice recognition software, please excuse any words or phrases that may have been misinterpreted. 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
== END 2024-04-27 08:18 | disposition home or self-care (01) ==
PROVIDERS: PCP Internal Medicine; Visit Provider Registered Nurse Diabetes Educator
DX: E13.9 Other specified diabetes mellitus without complications (principal); S36.209S Unspecified injury of unspecified part of pancreas, sequela

== ENCOUNTER → 2024-04-27 07:00 | Outpatient (BNVA) | payer OTHER, SELFPAY | PROVIDERS: PCP Internal Medicine; Visit Provider Registered Nurse Diabetes Educator | DX: Z46.81 Encounter for fitting and adjustment of insulin pump (principal); E13.9 Other specified diabetes mellitus without complications; S36.209S Unspecified injury of unspecified part of pancreas, sequela | CPT/HCPCS: 99211 ==

== ENCOUNTER 2024-06-13 07:38 | Outpatient (AMB) | payer OTHER, SELFPAY ==
--- NOTE | 2024-06-13 07:43 | MHC.OFFVIS ---
Vital Signs 06/13/24 07:44 Height 5 ft 3.5 in Weight 220 lb 3.869 oz BMI 38.4 BP 154/90 H Blood Pressure Location Lt brachial Position Sitting Pulse 86 Pulse Source Pulse Oximeter Intake Visit Reasons: f/u pancreolytic diabetes-lvm Intake Note: Patient presents today for Pancreolytic diabetes follow up visit. Last Diabetic Eye exam: 03/2024 Last Podiatry Visit: Doesn't have one Random Glucose: 139 mg/dl HgA1c: 7.6% Hydroelectric Operator Required: No Accompanied by: Self / Same As Patient Allergies Penicillins [PENICILLINS] Allergy (Severe, Verified 06/13/24 07:53) RASH Sulfa (Sulfonamide Antibiotics) [SULFA (SULFONAMIDE ANTIBIOTICS)] Allergy (Severe, Verified 06/13/24 07:53) THROMBOCYTOPENIA, severe penicillin V Allergy (Unknown, Verified 06/13/24 07:53) rash Medication List - Last Reconciled 06/13/24 by Brandon Gomez MD acetone (urine) test (Ketostix strips) As directed albuterol sulfate 90 mcg/actuation 2 puffs inhalation Q4H PRN amlodipine 1 tab PO DAILY azithromycin For 250 mg dose pack: take 500 mg today (day 1), then 250 mg for 4 days (days 2-5) PO benzonatate 100 mg PO TID PRN blood sugar diagnostic (Contour Next Test Strips) As directed blood-glucose meter (Contour Next Meter) As directed blood-glucose sensor (Dexcom G7 Sensor device) As directed ezetimibe (Zetia) 10 mg PO DAILY glucagon 3 mg/actuation (Baqsimi) 3 mg intranasal ONCE 30 days Humalog KwikPen Insulin (insulin lispro) 10 - 22 units (0.1 - 0.22 mL) subcut TID 25 days NS insulin glargine (Lantus Solostar U-100 Insulin) 26 units (0.26 mL) subcut QPM insulin lispro (Humalog U-100 Insulin) Infuse up to 110 units per day by insulin pump subcutaneously; insulin pump cart,auto,BT-cntr (Omnipod 5 G6 Intro Kit (Gen 5) subcutaneous cartridge with controller) As directed insulin pump cart,auto,BT-cntr (Omnipod 5 G6 Intro Kit (Gen 5) subcutaneous cartridge with controller) As directed lisinopril-hydrochlorothiazide 20-25 mg 1 tab PO BID 90 days pen needle, diabetic (BD Ultra-Fine Tammy Pen Needle) As directed four times a day pen needle, diabetic (BD Ultra-Fine Mini Pen Needle) As directed 4 times a day pen needle, diabetic (BD Ultra-Fine Tammy Pen Needle) As directed five times a day prednisone 40 mg (2 x 20 mg) PO DAILY rosuvastatin 40 mg PO DAILY sertraline 1 tab PO DAILY HPI Comments Details: Patient is 64 yo female with insulin deficent DM diagnosed about 30 years ago, who presents for management of diabetes. . . She did have negative antibodies. Past medical history: HTN, HLD, pancreatitis Micro and macrovascular complications: no known complications Diabetes medications: On an iLet pump . Meal announcements were 100% for breakfast, 89% usual for lunch and 91% usual for dinner with 11% less for lunch and 9% less for dinner. Total daily dose of insulin was 29.4 units for basal the total dose was 58.1. Dexcom download shows the sensor is being used 94.8% of the time. 75.4% range with 21.7% high and 1.6% very high and 1.3% very low. Average glucose is 148 with G mi of 6.9% and stent deviation 43.5 Rare hypoglycemia She had pancreatitis with GLP-1 in past. Blood glucose monitoring: Dexcom download shows she is using the sensor 64% of the time. Average glucose is 251 standard deviations 78. 19% range with 80% hyperglycemia and 1% hypoglycemia. And shows persistent hyperglycemia throughout the day with a post-breakfast rising glucose Symptoms reported: denies numbness, tingling, cramping in lower extremities Hypoglycemia: rare Hyperglycemia: denies urinary frequency Exercise: . 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 Last optho: has retinopathy - saw optho 2 mos ago Laboratory Tests Omnipod was denied by insurance 12/26/21 12/26/21 12/29/21 08:15 08:15 07:40 Creatinine Estimated GFR Hemoglobin A1c % 13.5 Triglycerides Cholesterol LDL Cholesterol Direct LDL Cholesterol, Calc HDL Cholesterol 25-OH Vitamin D Total 22.5 Microalb/Creat Ratio 373.1 DORA Antibody 12/29/21 12/29/21 07:45 07:45 Creatinine 0.63 Estimated GFR > 60 Hemoglobin A1c % Triglycerides 143 Cholesterol 207 LDL Cholesterol Direct 128 H LDL Cholesterol, Calc 135 HDL Cholesterol 44 25-OH Vitamin D Total Microalb/Creat Ratio DORA Antibody <5 12/29/21 07:45 Islet Cell Ab Screen NEGATIVE Islet Cell Ab Titer TNP Has uticaria since starting iLet . 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 Absence of acromegalic features. Neck exam reveals nl size thyroid about 15 gms. No thyroid nodules palpable. No carotid bruits present. Lungs CTA. Heart S1 S2, Reg R/R. No M/R/ G. Skin exam reveals absence of vitiligo or acanthosis nigricans. Abdominal exam reveals Soft NT/ND with NA BS. No organomegaly present. skin is tanned around the lower extremity. Neck Other: . Extrem Other: Visual exam of foot performed. No ulcerations or open lesions. No onchomycosis, no callouses.Pulses 2 + distally Sensation intact to monofilament exam. 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 macrovascular complications . Plan is continue the current management. We will check lipid profile microalbumin to creatinine ratio. Will have patient follow up with Mili Hart NP in 1 mos. Told patient to contact pump marine mammal trainer regarding the hives which could be a result of the infusion set. Continue with the antihistamine. If she experiences any anaphylactic symptoms which she has not up to now should go to the emergency room. Otherwise if we can not find a solution to the urticaria, patient referred to an tabular typist by her primary care provider (2) HLD (hyperlipidemia): Code(s): E78.5 - Hyperlipidemia, unspecified Category: Medical Plan: LDL not at goal at maximal doses of rosuvastatin . Will add ezetimibe 10 mg recheck lipid profile in 2 months Orders: Orders AMB Hemoglobin A1c Today E13.9 - Other specified diabetes mellitus without complications, S36.209S - Unspecified injury of unspecified part of pancreas, sequela, Z13.9 - Encounter for screening, unspecified Thyroid Stimulating Hormone Today E13.9 - Other specified diabetes mellitus without complications, S36.209S - Unspecified injury of unspecified part of pancreas, sequela Free T4 (Free Thyroxine) Today E13.9 - Other specified diabetes mellitus without complications, S36.209S - Unspecified injury of unspecified part of pancreas, sequela Coding Level of Care Code Est Pt Level 4 (87761) Complex EM visit Add On G2211 Diagnoses 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
[2024-06-13 07:44] VITALS: BP 154/90; PULSE 86; BMI 38.4
[2024-06-13 08:01] LABS: Glucose, Whole Blood 139 mg/dL (60-115)
== END 2024-06-13 08:21 | disposition home or self-care (01) ==
PROVIDERS: PCP Internal Medicine; Visit Provider Internal Medicine Endocrinology, Diabetes & Metabolism
DX: E13.9 Other specified diabetes mellitus without complications (principal); S36.209S Unspecified injury of unspecified part of pancreas, sequela; E78.5 Hyperlipidemia, unspecified; Z13.9 Encounter for screening, unspecified
CPT/HCPCS: 99214

== ENCOUNTER → 2024-06-13 07:38 | Outpatient (BNVA) | payer OTHER, SELFPAY | PROVIDERS: PCP Internal Medicine; Visit Provider Internal Medicine Endocrinology, Diabetes & Metabolism | DX: E13.9 Other specified diabetes mellitus without complications (principal); S36.209S Unspecified injury of unspecified part of pancreas, sequela; E78.5 Hyperlipidemia, unspecified | CPT/HCPCS: 82947; 83036 ==

== ENCOUNTER 2024-07-03 07:03 | Outpatient (REF) | payer MEDICARE, SELFPAY ==
[2024-07-03 08:41] LABS: Creatinine Urine 155.38 mg/dL; Microalbum/Creatinine Ratio Ur 297.3 ug/mg cr (<30)
[2024-07-03 08:49] LABS: Cholesterol 133 mg/dL (<200); HDL Cholesterol 45 mg/dL (>40); LDL Cholesterol Calculated 65 mg/dL (<100); Triglycerides 117 mg/dL (<150)
[2024-07-03 08:54] LABS: Free T4 (Free Thyroxine) 1.14 ng/dL (0.71-1.85)
== END 2024-07-03 07:04 | disposition home or self-care (01) ==
LOC: HO.LAB 07:03
PROVIDERS: PCP Internal Medicine; Visit Provider Internal Medicine Endocrinology, Diabetes & Metabolism
DX: E13.9 Other specified diabetes mellitus without complications (principal); S36.209S Unspecified injury of unspecified part of pancreas, sequela; E78.5 Hyperlipidemia, unspecified
CPT/HCPCS: 36415; 80061; 82043; 82570; 84439; 84443

== ENCOUNTER 2024-07-06 11:43 | Outpatient (REF) | payer MEDICARE, SELFPAY ==
[2024-07-06 12:24] LABS: Estimated Average Glucose 146 mg/dL; Hemoglobin A1C 189.0419 umol/L; Hemoglobin A1c % 6.7 % (<6.0); Total Hemoglobin (HGBA1C) 3786.7158 umol/L
[2024-07-06 12:32] LABS: Alanine Aminotransferase 23 U/L (0-31); Alkaline Phosphatase 80 U/L (39-117); Aspartate Amino Transferase 34 U/L (5-31); Bilirubin Direct 0.3 mg/dL (0.0-0.5); Cholesterol 173 mg/dL (<200); Glucose Fasting 103 mg/dL (60-99); HDL Cholesterol 51 mg/dL (>40); LDL Cholesterol Calculated 101 mg/dL (<100); Total Protein 7.1 g/dL (6.5-8.0); Triglycerides 105 mg/dL (<150)
[2024-07-06 14:07] LABS: Reflex LDLD? No
== END 2024-07-06 11:44 | disposition home or self-care (01) ==
LOC: HO.LNP 11:43
PROVIDERS: Visit Provider Internal Medicine
DX: E78.00 Pure hypercholesterolemia, unspecified (principal); E11.9 Type 2 diabetes mellitus without complications
CPT/HCPCS: 80061; 80076; 82947; 83036

== ENCOUNTER 2024-07-17 08:19 | Outpatient (AMB) | payer OTHER, SELFPAY ==
--- NOTE | 2024-07-17 08:38 | MHC.AMDMED ---
Intake Intake Visit Reasons: DM-confirmed Social Services Counselor Required: No Accompanied by: Self / Same As Patient Allergies Penicillins [PENICILLINS] Allergy (Severe, Verified 06/13/24 07:53) RASH Sulfa (Sulfonamide Antibiotics) [SULFA (SULFONAMIDE ANTIBIOTICS)] Allergy (Severe, Verified 06/13/24 07:53) THROMBOCYTOPENIA, severe penicillin V Allergy (Unknown, Verified 06/13/24 07:53) rash HPI Comprehensive Diabetes Asmnt Most Recent Diabetes Results: Hemoglobin A1c > 14.0 % 05/22/19 Microalb/Creat Ratio 297.3 ug/mg cr (<30) H 07/03/24 Cholesterol 173 mg/dL (<200) 07/06/24 HDL Cholesterol 51 mg/dL (>40) 07/06/24 Triglycerides 105 mg/dL (<150) 07/06/24 Creatinine 0.76 mg/dL (0.5-1.4) 01/04/24 Blood Urea Nitrogen 19 mg/dL (9-16) H 01/04/24 Sodium 142 mmol/L (135-145) 01/04/24 Potassium 4.2 mmol/L (3.3-5.1) 01/04/24 Chloride 104 mmol/L (96-108) 01/04/24 Carbon Dioxide 28 mmol/L (22-29) 01/04/24 Calcium 9.6 mg/dL (8.4-10.2) 01/04/24 AST 34 U/L (5-31) H 07/06/24 ALT 23 U/L (0-31) 07/06/24 Total Protein 7.1 g/dL (6.5-8.0) 07/06/24 Albumin 4.0 g/dL (3.5-5.0) 07/06/24 [facility] Medical History 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 HLD (hyperlipidemia) Hypertension Asthma Nephrolithiasis Diabetes Surgical History History of knee replacement Family History Family/Other No known health problems Social History Household Members: Spouse Housing: House Do you presently have visiting nurse or other home services: No Alcohol intake: never Patient Tobacco Use Status: Current everyday Tobacco user service: No Current occupational status: disabled Assessment & Plan Assessment & Plan (1) 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 The following topics were reviewed today: -Pump therapy basic concepts: Basal/bolus -For most effective glucose control bolus prior to meals - Off pump backup insulin plan iLet Alerts: ??? High Alert: 300 mg/dl ??? Low Alert: 75 mg/dl CGM: Above target:39.2% At target:59.1% Below target:1.1% Patient's average glucose for the past 14 days 170 mg/dL TDD:89.1 units Basal:37.8 units Patient's last A1c on 07/06/2024 6.7%, A1c down from 9.6% 12/2023. Discussed with patient the importance of bolusing to meals, and not taking extra mealtime bolus to try an resolve hyperglycemia, as this can lead to hypoglycemia. Patient is still experiencing reaction to contact detach surgical steel infusion sets. Patient does report that when she used the Rafael cannula infusion set symptoms resolved. Patient reports she is currently waiting on delivery for new infusion sets. Patient has follow-up appointment with BULL CHAIN OPERATOR 07/21/2024 Patient does report concern about weight gain since initiating insulin pump therapy. Encourage patient to increase physical activity. Reviewed with patient how insulin helps her body be more efficient at controlling glucose levels, however if there is excess intake this can lead to weight gain as body will store extra energy as fat. Denies overeating, does report decrease in physical activity Recommended to patient to discuss BULL CHAIN OPERATOR at next visit, consider setting up appointment registered dietitian Troubleshooting after starting new pod or inserting new insulin set: Occlusion, adhesive tape sensitivity, redness Check BG 2 hours after site change Patient understands the basic concepts of pump therapy, how to give insulin for meals and snacks, how to troubleshoot for hyper and hypoglycemia. Patient will follow up with [facility] as instructed Patient will contact [facility] with questions or concerns, patient given IT number to support in any technical issues related to insulin pump Portions of this note were created using voice recognition software, please excuse any words or phrases that may have been misinterpreted. 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
== END 2024-07-17 08:39 | disposition home or self-care (01) ==
PROVIDERS: PCP Internal Medicine; Visit Provider Registered Nurse Diabetes Educator
DX: E13.9 Other specified diabetes mellitus without complications (principal); S36.209S Unspecified injury of unspecified part of pancreas, sequela

== ENCOUNTER → 2024-07-17 08:19 | Outpatient (BNVA) | payer OTHER, SELFPAY | PROVIDERS: PCP Internal Medicine; Visit Provider Registered Nurse Diabetes Educator | DX: Z46.81 Encounter for fitting and adjustment of insulin pump (principal); E13.9 Other specified diabetes mellitus without complications; S36.209S Unspecified injury of unspecified part of pancreas, sequela | CPT/HCPCS: 99211 ==

== ENCOUNTER 2024-07-26 12:01 | Outpatient (AMB) | payer MEDICARE, SELFPAY ==
[2024-07-26 12:20] VITALS: PULSE 107; O2SAT 95; BMI 38.4
--- NOTE | 2024-07-26 12:20 | AM.OFFWIN_ITS ---
Intake Vital Signs 07/26/24 12:20 Height 5 ft 3.5 in Weight 220 lb BMI 38.4 Pulse 107 H Pulse Source Pulse Oximeter Pulse Oximetry (%) 95 Oxygen Delivery Method Room Air Intake Visit Reasons: EP Hives all over body(no sob/allergic reaction) Intake Note: Pt states she been having on going hives/ rashes for a few months now. Pt mentions she may be allergic to her insulin pump. Pt is unable to sleep and sugar levels been in the high 200s. Patient Tobacco Use Status: Current everyday Tobacco user Allergies Penicillins [PENICILLINS] Allergy (Severe, Verified 07/26/24 12:20) RASH Sulfa (Sulfonamide Antibiotics) [SULFA (SULFONAMIDE ANTIBIOTICS)] Allergy (Severe, Verified 07/26/24 12:20) THROMBOCYTOPENIA, severe penicillin V Allergy (Unknown, Verified 07/26/24 12:20) rash Do you need a note to return to daycare/school/sports/work: No HPI EP Hives all over body(no sob/allergic reaction) HPI Details This note is constructed using voice recognition software. While every effort has been made to ensure accuracy, tray drier errors may have been included. The patient is a 64 year old female who presents to the clinic today with hives for the past several months. She reports that she started having hives after starting her insulin pump. Her insulin pump has done a great job at controlling her glucose, however the hives started fairly soon after. She has carefully looked at all things that she is exposed to, and between her and her primary care provider they have identified that the needle source for the pump may be the culprit. She has a new needle type pending delivery to her home, and in the interim over the last few days she stopped using her pump, and instead has been injecting her insulin to help control her glucose. She has been taking Nury, which initially was helping the hives, however it has stopped being as effective. She has tried cool shower which has helped some. She denies fever, chills, shortness of breath, or any tightening sensation in her throat. She has tried Benadryl occasionally which has also helped the symptoms. 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 HLD (hyperlipidemia) Hypertension Asthma Nephrolithiasis Diabetes Surgical History History of knee replacement Family History Family/Other No known health problems Social History Household Members: Spouse Housing: House Do you presently have visiting nurse or other home services: No Alcohol intake: never Patient Tobacco Use Status: Current everyday Tobacco user service: No Current occupational status: disabled Review of Systems Const All systems reviewed & are unremarkable except as noted in HPI and below Physical Exam Vital Signs: Last Vital Signs Pulse 107 H 07/26/24 12:20 Pulse Ox 95 07/26/24 12:20 Oxygen Delivery Method Room Air 07/26/24 12:20 BMI result Body Mass Index 38.4 Const General: cooperative, healthy appearing, comfortable, no acute distress and well developed Orientation/consciousness: patient oriented x3 Limitations: no limitations Neck Neck: Yes normal visual inspection and Yes full ROM Resp Effort & Inspection: normal respiratory effort and able to speak in complete sentences Auscultation: clear to auscultation bilaterally Cardio Rate: regular rate Rhythm: regular rhythm Heart sounds: normal S1 and S2 Skin Other: Your urticarial rash over all extremities, chest and back. No signs of secondary bacterial infection. Neuro General: patient oriented x3 Assessment & Plan Assessment & Plan (1) Hives: Code(s): L50.9 - Urticaria, unspecified Plan: Reportedly related to insulin pump needles, where she is pending new type needle type. Advised 50 mg Benadryl daily, she may continue her Nury twice daily, and add famotidine 20 mg daily for the next 2 weeks. Advised to continue to follow with her primary care provider for identifying source. Advised ER with any dyspnea, or throat tightening. Discussed consideration of prednisone for itch, however given her diabetes and the potential to increase her glucose, declined at this time. She may require referral to academic program specialist with ongoing symptoms. Plan See above for full details and plan. Coding Level of Care Code Est Pt Level 3 (67722) Diagnoses Hives L50.9
== END 2024-07-26 13:25 | disposition home or self-care (01) ==
PROVIDERS: PCP Internal Medicine; Visit Provider Registered Nurse
DX: L50.9 Urticaria, unspecified (principal)

== ENCOUNTER → 2024-07-26 12:01 | Outpatient (BNVA) | payer MEDICARE, SELFPAY | PROVIDERS: PCP Internal Medicine; Visit Provider Registered Nurse | DX: L50.9 Urticaria, unspecified (principal) | CPT/HCPCS: 99212 ==

== ENCOUNTER 2024-08-14 12:08 | Emergency (ER) | payer MEDICARE, SELFPAY ==
--- NOTE | ~2024-08-14 | CT_ITS ---
EXAMINATION: CT HEAD WITHOUT CONTRAST CLINICAL INFORMATION: Hypertension COMPARISON: None available. TECHNIQUE: Contiguous axial imaging was performed from the skull base to vertex without intravenous administration of contrast. This CT examination was performed using dose optimization techniques as appropriate, variously including the following: *Automated exposure control *Adjustment of mA and/or kV according to patient size (this includes techniques or standardized protocols for targeted exams where dose is matched to indication/reason for exam; i.e. extremities or head) *Use of iterative reconstruction technique DLP: 542 mGy-cm FINDINGS: There is no evidence of acute intracranial hemorrhage or edematous large vessel territorial infarction. No abnormal mass effect or midline shift is seen. Tavarez to white matter differentiation is well preserved. No abnormal extra-axial fluid collections are identified. The ventricles are normal in size. No abnormal attenuation in the brain parenchyma. No acute calvarial fracture.. Paranasal sinuses and mastoid air cells are well-aerated. CT/CT head/brain wo IV con IMPRESSION: No CT evidence of acute intracranial hemorrhage or edematous territorial infarction.. Electronically signed by: Carlos Huitron MD 08/14/2024 05:48 PM [facility]
[2024-08-14 12:24] VITALS: BP 217/108; PULSE 91; RESP 16; TEMP 36; O2SAT 96; BMI 39.0
--- NOTE | 2024-08-14 12:26 | ED_ITS ---
HPI - General Adult General Chief complaint: General Medical Stated complaint: high bp sent in by pcp Time Seen by Provider: 08/14/24 15:13 Source: patient Mode of arrival: ambulatory Limitations: no limitations History of Present Illness ED Provider: Trev Cummings HPI narrative: 64 yold female with pmh of HTN presents to the ED asymptomatic elevated high blood pressure. Patient but follow-up by primary care provider for recurrent allergic rash since March and her blood pressure was elevated with systolics of 200s. Patient admits to not taking high blood pressure medications today. Patient denies any chest pain, shortness of breath, slurred speech, facial droop, dizziness, vomiting, headache, blurry vision, or paralysis of extremities. Related Data Home Medications ?Medication ?Instructions ?Recorded ?Confirmed albuterol sulfate 90 mcg/actuation 2 puff inhalation Q4H PRN 12/05/21 06/13/24 aerosol inhaler Shortness Of Breath amlodipine 5 mg tablet 1 tab PO DAILY 12/05/21 08/14/24 sertraline 100 mg tablet 1 tab PO DAILY 12/05/21 06/13/24 blood sugar diagnostic (Contour 05/27/22 06/13/24 Next Test Strips) blood-glucose meter (Contour Next 05/27/22 06/13/24 Meter) Previous Rx's ?Medication ?Instructions ?Recorded pen needle, diabetic 32 gauge x #125 ea 12/24/21 (BD Ultra-Fine Tammy Pen Needle) pen needle, diabetic 32 gauge x #150 ea 12/25/21 (BD Ultra-Fine Tammy Pen Needle) glucagon 3 mg/actuation nasal 3 mg intranasal ONCE severe 02/24/22 spray (Baqsimi) hypoglycemia 30 days #2 ea lisinopril 20 1 tab PO BID 90 days #180 tabs 02/24/22 mg-hydrochlorothiazide 25 mg tablet pen needle, diabetic 31 gauge x #150 ea 02/24/22 3/16 (BD Ultra-Fine Mini Pen Needle) rosuvastatin 40 mg tablet 40 mg PO DAILY #90 tabs 02/24/22 insulin pump cartridge,automated #1 ea 06/29/22 dose,BT with controller subcutaneous (Omnipod 5 G6 Intro Kit (Gen 5) subcutaneous cartridge with controller) insulin pump cartridge,automated #1 ea 07/08/22 dose,BT with controller subcutaneous (Omnipod 5 G6 Intro Kit (Gen 5) subcutaneous cartridge with controller) Humalog KwikPen Insulin 100 10 - 22 unit (0.1 - 0.22 mL) 06/10/23 unit/mL subcutaneous (insulin subcut TID 25 days #15 mL lispro) blood-glucose sensor (Dexcom G7 #3 ea 10/11/23 Sensor device) ezetimibe 10 mg tablet (Zetia) 10 mg PO DAILY #30 tabs 02/09/24 acetone (urine) test (Ketostix #100 ea 04/12/24 strips) insulin glargine 100 unit/mL (3 26 unit (0.26 mL) subcut QPM #45 mL 04/19/24 mL) subcutaneous pen (Lantus Solostar U-100 Insulin) insulin lispro 100 unit/mL See Rx Instructions subcut 04/19/24 subcutaneous solution (Humalog .COMPLEX #30 mL U-100 Insulin) prednisone 20 mg tablet 40 mg (2 x 20 mg) PO DAILY 5 days 08/14/24 #10 tabs Allergies Allergy/AdvReac Type Severity Reaction Status Date / Time Penicillins [PENICILLINS] Allergy Severe RASH Verified 08/14/24 12:27 Sulfa (Sulfonamide Allergy Severe THROMBOCYTOPENIA, Verified 08/14/24 12:27 Antibiotics) severe [SULFA (SULFONAMIDE ANTIBIOTICS)] penicillin V Allergy Unknown rash Verified 08/14/24 12:27 Review of Systems 2 Review of Systems: Allergic rash since March. 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 HLD (hyperlipidemia) Hypertension Asthma Nephrolithiasis Diabetes Surgical History History of knee replacement Family History Family History Family/Other No known health problems Social History Social History Household Members: Spouse Housing: House Do you presently have visiting nurse or other home services: No Alcohol intake: never Patient Tobacco Use Status: Current everyday Tobacco user Advance Directives: No Advance Directives Information Provided: Yes Do you have a plan to hurt others: No Plan service: No Current occupational status: disabled Physical Exam ED Vital Signs: Vital Signs - 24 hr 08/14/24 12:24 08/14/24 15:01 08/14/24 15:57 Temperature 96.8 F 98.8 F 98.8 F Pulse Rate 91 98 89 Respiratory Rate 16 18 20 Blood Pressure 217/108 H 228/100 H 193/91 H Pulse Oximetry 96 98 98 Oxygen Delivery Method Room Air Room Air Room Air 08/14/24 16:58 08/14/24 18:07 08/14/24 19:06 Temperature 97.2 F 97.9 F 97.9 F Pulse Rate 96 88 88 Respiratory Rate 16 18 18 Blood Pressure 184/84 H 164/82 H 164/82 H Pulse Oximetry 94 99 99 Oxygen Delivery Method Room Air Room Air Room Air BMI result Body Mass Index 39.0 Const General: cooperative, healthy appearing, comfortable, no acute distress, well developed, alert and awake Orientation/consciousness: patient oriented x3 HENMT Head: Yes normal to inspection, Yes No palpable skull fracture present, Yes normocephalic and Yes atraumatic Eyes General: appearance normal, both eyes and all related structures Neck Neck: Yes normal visual inspection, Yes full ROM, Yes no lymphadenopathy, Yes no meningeal signs, Yes trachea midline, Yes supple, No anterior neck swelling and No tender Chest Chest palpation & inspection: normal inspection of the chest and normal palpation of entire chest wall Resp Effort & Inspection: normal respiratory effort and able to speak in complete sentences Auscultation: clear to auscultation bilaterally Cardio Jugular venous distension: no JVD Heart sounds: S1 normal heart sound present and S2 normal heart sound present GI Inspection: Yes normal to inspection Palpation (GI): Soft to palpation, not firm, nontender, no guarding and not rigid General: Yes no CVA tenderness Back/Spine/Pelvis Back: no CVA tenderness and No back tenderness Skin Other: Positive for hives on extremities and torso Neuro General: patient oriented x3, gait normal, tone normal, moves all extremities, Normal light touch and pain sensation, no meningeal signs, no focal motor deficits, CN's II-XI intact bilaterally and normal sensation to monofilament Extrem General: Yes normal to inspection, Yes full ROM and Yes capillary refill normal Psych Appearance: grossly normal, well kempt and not disheveled NIH Stroke Scale Internal: Initial- Upon Arrival Level of Consciousness: Alert Level of Consciousness Questions: Answers both questions correctly Level of Consciousness Commands: Performs both tasks correctly Best Gaze: Normal Visual: No visual loss Facial Palsy: Normal Motor Arm (Right): No drift Motor Arm (Left): No drift Motor Leg (Right): No drift Motor Leg (Left): No drift Limb Ataxia: Absent Sensory: Normal Best Language: No aphasia Dysarthia: Normal Extinction and Inattention: No abnormality Score: 0 Course Course Course Narrative: This is an RME: Additional HPI, ROS, PE not included below will be deferred to primary provider. RME assessment and note performed by: Rhianna Grove PA-C This is a 18-fqac-eho-female, with a hx of HLD, HTN, asthma, diabetes, who presents to the ER with complaints of high blood pressure. Reports that she has had ongoing rash for the last several weeks ago. BP 217/108. No headache/dizziness. NO chest pain, endorsing feeling panicky . Did not take her BP meds this am. advised charge nurse to bring pt back [facility] Plan: labs, furth er eval needed Medications Administered Discontinued Medications Generic Name Dose Route Start Last Admin Trade Name Freq PRN Reason Stop Dose Admin Amlodipine Besylate 5 mg 08/14/24 15:14 08/14/24 15:19 Amlodipine Besylate 5 Mg Tablet PO 08/14/24 15:15 5 mg ONCE ONE Administration Protocol Hydrochlorothiazide 25 mg 08/14/24 15:14 08/14/24 15:19 Hydrochlorothiazide 25 Mg Tablet PO 08/14/24 15:15 25 mg ONCE ONE Administration Protocol Lisinopril 20 mg 08/14/24 15:14 08/14/24 15:19 Lisinopril 20 Mg Tablet PO 08/14/24 15:15 20 mg ONCE ONE Administration Protocol Medical Decision Making Medical Decision Making MDM Narrative: 64-year-old female presents to the ED for asymptomatic high blood pressure with systolic over 220. Patient also states allergic reaction off and on since March. NIH score is 0. Labs EKG head CT scan ordered 6:56pm: Blood pressure improved. Negative for any signs of stroke per head CT scan normal to troponin negative. EKG neck STEMI. Negative for signs of hypertensive emergency. Patient is not in anaphylaxis. Patient is already on Benadryl Pepcid and Nury. Patient will be discharged with prednisone. Patient explained worrisome signs and informed to return to the ED immediately. Differential Diagnosis Differential Diagnoses: The differential diagnosis associated with the presentation includes (Hypertension allergic reaction) Admission/Observation Consideration of admission/observation: Escalation of care including admission/observation considered Lab Data MDM Lab Attestation statement: I reviewed the patient's lab results. 08/14/24 12:53 08/14/24 12:53 Labs: Lab Results 08/14/24 08/14/24 Range/Units 12:53 15:53 WBC 7.2 (4.8-10.8) X10*3/uL RBC 4.79 (4.20-5.50) X10*6/uL Hgb 13.9 (12.0-16.0) g/dl Hct 41.8 (37.0-47.0) % MCV 87.3 (80.0-98.0) fL MCH 29.0 (27.0-33.0) pg MCHC 33.3 (31.0-35.0) g/dl RDW 12.1 (11.0-16.0) % Plt Count 324 (160-400) X10*3/uL MPV 9.9 (9.4-12.3) fL Immature Gran % (Auto) 0.4 (0.0-0.4) % Neut % (Auto) 63.4 (45-73) % Lymph % (Auto) 29.6 (20-40) % Nelson % (Auto) 5.2 (2-11) % Eos % (Auto) 1.3 (0-4) % Baso % (Auto) 0.1 (0-2) % Lymph # (Auto) 2.1 (1.2-4.9) X10*3/uL Nelson # (Auto) 0.4 (0.1-1.2) X10*3/uL Eos # (Auto) 0.1 (0.0-0.4) X10*3/uL Baso # (Auto) 0.0 (0.0-0.2) X10*3/uL Abs Immat Gran (auto) 0.03 (0.00-0.03) X10*3/uL Absolute Neuts (auto) 4.5 (2.0-8.3) x10*3/uL Absolute Nucleated RBC 0.000 (0.0-0.012) X10*3/uL Nucleated RBC % (auto) 0.0 (0.0-0.2) /100WBC Sodium 142 (135-145) mmol/L Potassium 4.3 (3.3-5.1) mmol/L Chloride 102 (96-108) mmol/L Carbon Dioxide 30 H (22-29) mmol/L Anion Gap 14 (12-20) BUN 21 H (9-16) mg/dL Creatinine 0.88 (0.5-1.4) mg/dL Estim Creat Clear Calc 71.7 Estimated GFR > 60 Random Glucose 137 H (60-115) mg/dL Calcium 9.3 (8.4-10.2) mg/dL Total Bilirubin 0.7 (0.0-1.0) mg/dL Direct Bilirubin 0.2 (0.0-0.5) mg/dL AST 27 (5-31) U/L ALT 25 (0-31) U/L Alkaline Phosphatase 110 (39-117) U/L Troponin I High Sens 6.1 8.8 (<3.5-17.0) ng/L Total Protein 7.1 (6.5-8.0) g/dL Albumin 4.0 (3.5-5.0) g/dL Independent Interpretation I performed an independent interpretation of an: EKG (Negative STEMI) and CT Scan Radiology Impression Discussion of test interpretation with radiology: I have reviewed the radiologist's reading. Independent Historian Clinical information obtained from an independent historian. History obtained from or confirmed by: Other (patient) External Record Review External record reviewed: Other (prior visits) Prescription Management I considered prescription management with: Other Discharge Plan Discharge Clinical Impression: Hypertension, Allergic reaction Patient Disposition: Home, Self-Care Instructions: Hypertension (ED), General Allergic Reaction (ED) Additional Instructions: Recommend follow-up with primary care provider. You will need referral to chronic condition nurse or primary care provider should recommend patch test. Continue using Benadryl Nury and Pepcid for itchiness or hives. You will be discharged with prednisone. Recommend being compliant with a hypertension medications. Uncontrolled high blood pressure can lead to stroke, kidney failure, and heart attack. Return to the ED immediately for any swelling of lips, swelling of tongue, shortness of breath, fever, chills, worsening rash, slurred speech, facial droop, paralysis of extremities, loss of vision, nausea, vomiting, or any other concerning symptoms. Prescriptions: New prednisone 20 mg tablet 40 mg PO DAILY 5 Days Qty: 10 0RF No Action (DME) pen needle, diabetic [BD Ultra-Fine Tammy Pen Needle] 32 gauge x 5/32 needle See Rx Instructions .ROUTE .MEDSUPPLY Qty: 150 11RF Rx Instructions: As directed five times a day (DME) Omnipod 5 G6 Intro Kit (Gen 5) Cartridge See Rx Instructions .Route Qty: 1 4RF Rx Instructions: As directed (DME) Omnipod 5 G6 Intro Kit (Gen 5) Cartridge See Rx Instructions .Route Qty: 1 0RF Rx Instructions: As directed (DME) Ketostix Strip See Rx Instructions .Route Qty: 100 4RF Rx Instructions: As directed insulin lispro [Humalog U-100 Insulin] 100 unit/mL solution See Rx Instructions subcut .COMPLEX Qty: 30 4RF Rx Instructions: Infuse up to 110 units per day by insulin pump subcutaneously; insulin glargine [Lantus Solostar U-100 Insulin] 100 unit/mL (3 mL) insulin pen 26 unit subcut QPM Qty: 45 4RF sertraline 100 mg tablet 1 tab PO DAILY amlodipine 5 mg tablet 1 tab PO DAILY albuterol sulfate 90 mcg/actuation HFA aerosol inhaler 2 puff inhalation Q4H PRN (Reason: Shortness Of Breath) (DME) pen needle, diabetic [BD Ultra-Fine Tammy Pen Needle] 32 gauge x 5/32 needle See Rx Instructions .ROUTE .MEDSUPPLY Qty: 125 12RF Rx Instructions: As directed four times a day Baqsimi 3 mg/actuation spray,non-aerosol 3 mg intranasal ONCE 30 Days Qty: 2 6RF Rx Instructions: [place] once for severe hypoglycemia when patient cannot self-treat with glucose. Afterwards turn on side. May repeat after 15 minutes if patient does not respond. (DME) pen needle, diabetic [BD Ultra-Fine Mini Pen Needle] 31 gauge x 3/16 needle See Rx Instructions .Route Qty: 150 3RF Rx Instructions: As directed 4 times a day lisinopril-hydrochlorothiazide 20-25 mg tablet 1 tab PO BID 90 Days Qty: 180 1RF rosuvastatin 40 mg tablet 40 mg PO DAILY Qty: 90 1RF (DME) blood-glucose meter [Contour Next Meter] Misc See Rx Instructions .Route Rx Instructions: As directed (DME) Contour Next Test Strips Strip See Rx Instructions .Route Rx Instructions: As directed insulin lispro [Humalog KwikPen Insulin] 100 unit/mL insulin pen 10 - 22 unit SUBCUT TID 25 Days Qty: 15 6RF (DME) Dexcom G7 Sensor Device See Rx Instructions .Route Qty: 3 5RF Rx Instructions: As directed ezetimibe [Zetia] 10 mg tablet 10 mg PO DAILY Qty: 30 4RF Stand Alone Forms: Work/School Release Interventions: ED Discharge Assessment Last Done: 08/14/24 19:06 Discharge Date/Time: 08/14/24 19:07 Print Language: French
--- NOTE | 2024-08-14 12:31 | ECG_ITS ---
Test Reason : high bp Blood Pressure : / mmHG Vent. Rate : 084 BPM Atrial Rate : 084 BPM P-R Int : 182 ms QRS Dur : 070 ms QT Int : 356 ms P-R-T Axes : 041 -15 014 degrees QTc Int : 420 ms Normal sinus rhythm Minimal voltage criteria for LVH, may be normal variant ( R in aVL ) Inferior infarct , age undetermined Anterior infarct (cited on or before 06-DEC-2021) Abnormal ECG When compared with ECG of 16-MAR-2023 15:52, No significant changes seen Referred By: Rhianna Grove Electronically Signed By:JT WINSLOW
[2024-08-14 12:57] LABS: MANUAL DIFF FLAG NO
[2024-08-14 13:01] LABS: Basophils Percent Auto 0.1 % (0-2); Eosinophils Absolute Auto 0.1 X10*3/uL (0.0-0.4); Eosinophils Percent Auto 1.3 % (0-4); Hematocrit 41.8 % (37.0-47.0); Hemoglobin 13.9 g/dl (12.0-16.0); Imm Gran Abs Auto 0.03 X10*3/uL (0.00-0.03); Imm Gran Pct Auto 0.4 % (0.0-0.4); Lymphocytes Absolute Auto 2.1 X10*3/uL (1.2-4.9); Lymphocytes Percent Auto 29.6 % (20-40); Mean Corpuscular HGB Conc 33.3 g/dl (31.0-35.0); Mean Corpuscular Volume 87.3 fL (80.0-98.0); Mean Platelet Volume 9.9 fL (9.4-12.3); Monocytes Absolute Auto 0.4 X10*3/uL (0.1-1.2); Monocytes Percent Auto 5.2 % (2-11); Neutrophils Absolute Auto 4.5 x10*3/uL (2.0-8.3); Neutrophils Percent Auto 63.4 % (45-73); Platelet Count 324 X10*3/uL (160-400); Red Blood Count 4.79 X10*6/uL (4.20-5.50); Red Cell Distribution Width 12.1 % (11.0-16.0); White Blood Count 7.2 X10*3/uL (4.8-10.8)
[2024-08-14 13:19] LABS: Troponin-I High Sensitivity 6.1 ng/L (<3.5-17.0)
[2024-08-14 13:22] LABS: Alanine Aminotransferase 25 U/L (0-31); Anion Gap 14 (12-20); Aspartate Amino Transferase 27 U/L (5-31); Blood Urea Nitrogen 21 mg/dL (9-16); Calcium 9.3 mg/dL (8.4-10.2); Carbon Dioxide 30 mmol/L (22-29); Chloride 102 mmol/L (96-108); Glucose Random 137 mg/dL (60-115); Potassium 4.3 mmol/L (3.3-5.1); Sodium 142 mmol/L (135-145); Total Protein 7.1 g/dL (6.5-8.0)
[2024-08-14 13:39] LABS: Alkaline Phosphatase 110 U/L (39-117); Bilirubin Direct 0.2 mg/dL (0.0-0.5); Bilirubin Total 0.7 mg/dL (0.0-1.0); Creatinine Clr Calc Pharmacy 71.7; Estimated Glomerular Filt Rate > 60
--- NOTE | 2024-08-14 15:00 | PC.NURSE ---
a&ox4. vss and up to date aside from being hypertensive. pt presents to the ED after being sent by PCP d/t hypertension. pt reports going to PCP d/t constant rash throughout entire body x march. pt reports sx have been worsening. rx antihistamines at last pcp visit a few weeks ago - represented to PCP today d/t increase in sx. upon PCP arrival - pt noted to be hypertensive - pt states she did not take her rx of amlodipine or lisinopril/hydrochlorothiazide this morning. pt denies any headache/dizziness/lightheadedness/change in vision. provider notified/aware of BP. on RA w/o difficulty - no sob/wob noted. respirations even/unlabored. plan of care ongoing. call magdaleno placed within reach.
[2024-08-14 15:01] VITALS: BP 228/100; PULSE 98; RESP 18; TEMP 37.1; O2SAT 98
[2024-08-14] MEDS: hydroCHLOROthiazide 25 MG TABLET PO (15:19)
[2024-08-14] MEDS: amLODIPine Besylate 5 MG TABLET PO (15:19)
[2024-08-14] MEDS: lisinopriL 20 MG TABLET PO (15:19)
--- NOTE | 2024-08-14 15:20 | PC.NURSE ---
pt remains hypertensive at this time. medication administered per provider order. effectiveness pending. will reassess.
[2024-08-14 15:57] VITALS: BP 193/91; PULSE 89; RESP 20; TEMP 37.1; O2SAT 98
[2024-08-14 16:31] LABS: Troponin-I High Sensitivity 8.8 ng/L (<3.5-17.0)
[2024-08-14 16:58] VITALS: BP 184/84; PULSE 96; RESP 16; TEMP 36.2; O2SAT 94
[2024-08-14 18:07] VITALS: BP 164/82; PULSE 88; RESP 18; TEMP 36.6; O2SAT 99
[2024-08-14 19:06] VITALS: BP 164/82; PULSE 88; RESP 18; TEMP 36.6; O2SAT 99
== END 2024-08-14 19:07 | disposition home or self-care (01) ==
PROVIDERS: Physician Assistant; Physician Assistant Medical; Emergency Provider Internal Medicine; PCP Internal Medicine
DX: L50.0 Allergic urticaria (principal); I10 Essential (primary) hypertension; R51.9 Headache, unspecified; E11.9 Type 2 diabetes mellitus without complications; R94.31 Abnormal electrocardiogram [ECG] [EKG]; Z79.4 Long term (current) use of insulin; Z79.899 Other long term (current) drug therapy
CPT/HCPCS: 36415; 70450; 80048; 80076; 84484; 85025; 93005; 99284

== ENCOUNTER → 2024-08-14 12:31 | Outpatient (BNV) | payer MEDICARE, SELFPAY | PROVIDERS: PCP Internal Medicine; Visit Provider Internal Medicine | DX: R94.31 Abnormal electrocardiogram [ECG] [EKG] (principal) | CPT/HCPCS: 93010 ==

== ENCOUNTER 2024-09-11 09:49 | Outpatient (AMB) | payer MEDICARE, SELFPAY ==
--- NOTE | 2024-09-11 09:51 | A.OFFVIS_ITS ---
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 Last Diabetic Eye exam: within 6 months Last Podiatry Visit: Does not see a Grain Elevator Agent Random Glucose: 139 mg/dl HgA1C: 6.7% 07/06/2024 Knotter Hand Required: No Accompanied by: Self / Same As Patient Allergies Penicillins [PENICILLINS] Allergy (Severe, Verified 09/11/24 09:58) RASH Sulfa (Sulfonamide Antibiotics) [SULFA (SULFONAMIDE ANTIBIOTICS)] Allergy (Severe, Verified 09/11/24 09:58) THROMBOCYTOPENIA, severe penicillin V Allergy (Unknown, Verified 09/11/24 09:58) rash HPI Comments Details: Patient is 64 yo female with insulin deficent DM diagnosed about 30 years ago, who presents for management of diabetes. . . She did have negative antibodies. Past medical history: HTN, HLD, pancreatitis Micro and macrovascular complications: no known complications Diabetes medications: On an iLet pump . Meal announcements were 100% for breakfast, 100% usual for lunch and 100% usual for dinner Total daily dose of insulin was 46.8 units for basal the total dose was 98.3. Dexcom download shows the sensor is being used 94.8% of the time. 75.4% range with 21.7% high and 1.6% very high and 1.3% very low. Average glucose is 148 with G mi of 6.9% and stent deviation 43.5 Rare hypoglycemia She had pancreatitis with GLP-1 in past. Blood glucose monitoring: Dexcom download shows she is using the sensor 64% of the time. Average glucose is 178 standard deviations 44. 59% range with 39% hyperglycemia and 1.7% hypoglycemia. And shows post-lunch and post-dinner hyperglycemia. It appears as though patient is announcing that meal after she starts eating Symptoms reported: denies numbness, tingling, cramping in lower extremities Hypoglycemia: rare Hyperglycemia: denies urinary frequency Exercise: . 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 Last optho: has retinopathy - saw optho 6 mo ago Laboratory Tests 12/26/21 12/26/21 12/29/21 08:15 08:15 07:40 Creatinine Estimated GFR Hemoglobin A1c % 13.5 Triglycerides Cholesterol LDL Cholesterol Direct LDL Cholesterol, Calc HDL Cholesterol 25-OH Vitamin D Total 22.5 Microalb/Creat Ratio 373.1 DORA Antibody 12/29/21 12/29/21 07:45 07:45 Creatinine 0.63 Estimated GFR > 60 Hemoglobin A1c % Triglycerides 143 Cholesterol 207 LDL Cholesterol Direct 128 H LDL Cholesterol, Calc 135 HDL Cholesterol 44 25-OH Vitamin D Total Microalb/Creat Ratio DORA Antibody <5 12/29/21 07:45 Islet Cell Ab Screen NEGATIVE Islet Cell Ab Titer TNP Was on predisone and caused hyperglycemia . 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 Absence of acromegalic features. Neck exam reveals nl size thyroid about 15 gms. No thyroid nodules palpable. No carotid bruits present. Lungs CTA. Heart S1 S2, Reg R/R. No M/R/ G. Skin exam reveals absence of vitiligo or acanthosis nigricans. Abdominal exam reveals Soft NT/ND with NA BS. No organomegaly present. skin is tanned around the lower extremity. Neck Other: . Extrem Other: Visual exam of foot performed. No ulcerations or open lesions. No onchomycosis, no callouses.Pulses 2 + distally Sensation intact to monofilament exam. 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 macrovascular complications . Plan is have the patient announced the meals prior to eating. Will have her follow up with Mili Hart NP in 3-4 wks . I also [facility] of urticaria (2) HLD (hyperlipidemia): Code(s): E78.5 - Hyperlipidemia, unspecified Category: Medical Plan: LDL not at goal at maximal doses of rosuvastatin . 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
[2024-09-11 09:53] VITALS: BP 128/74; PULSE 92; BMI 40.1
[2024-09-11 10:08] LABS: Glucose, Whole Blood 139 mg/dL (60-115)
== END 2024-09-11 10:32 | disposition home or self-care (01) ==
PROVIDERS: PCP Internal Medicine; Visit Provider Internal Medicine Endocrinology, Diabetes & Metabolism
DX: E13.9 Other specified diabetes mellitus without complications (principal); S36.209S Unspecified injury of unspecified part of pancreas, sequela; E78.5 Hyperlipidemia, unspecified
CPT/HCPCS: 99214; G2211

== ENCOUNTER → 2024-09-11 09:49 | Outpatient (BNVA) | payer MEDICARE, SELFPAY | PROVIDERS: PCP Internal Medicine; Visit Provider Internal Medicine Endocrinology, Diabetes & Metabolism | DX: E13.9 Other specified diabetes mellitus without complications (principal); E78.5 Hyperlipidemia, unspecified; S36.209S Unspecified injury of unspecified part of pancreas, sequela | CPT/HCPCS: 82947; 99212 ==

== ENCOUNTER 2024-09-20 10:17 | Outpatient (REF) | payer MEDICARE, OTHER, SELFPAY ==
--- OUTSIDE RECORDS SUMMARY | 2024-09-20 11:17 | XMS_ITS ---
Author Organization Ilir Hodge MD Address [address] [place] [phone] Care Team Providers Care Parquet Floor Layer Name Role Phone Ilir Hodge Primary Care Provider [phone] ALLERGIES Allergen (clinical drug ingredient) Drug/Non Drug Allergy documented on EMR Reaction Allergy Type Onset Date Status dulaglutide Trulicity pancreatitis Drug Allergy Ac tive Penicillin G Benzathine hives Drug Allergy Active sulfamethoxazole / trimethoprim Bactrim low platelets Drug Allergy Active REASON FOR VISIT 2 week MEDICATIONS Medication SIG (Take, Route, Frequency, Duration) Notes Start Date End Date Status Lisinopril-hydroCHLOROth iazide 20-12.5 MG take 2 tablet by mouth once daily for 90 days Orally Once a day Active HumaLOG KwikPen 100 UNIT/ML 60 units Subcutaneous Active Vitamin D3 50 MCG (2000 UT) 1 capsule Orally Once a day for 30 day(s) 01/01/2022 Not-Taking Paxlovid (300/100) 20 x 150 MG & 10 x 100MG 2 tabs of nirm and 1 tab sukhjinder Orally twice for 5 days 05/15/2022 Not-Taking amLODIPine Besylate 10 MG 1 tablet Orally Once a day for 90 days 10/24/2019 Active Rosuvastatin Calcium 40 MG 1 tablet Orally Once a day Active Vitamin D3 125 MCG (5000 UT) 1 tablet Orally Once a day 11/05/2017 Active Sertraline HCl 100MG take 1 tablet by [facility] once daily for 90 days Orally Once a day for 90 days Active Albuterol Sulfate HFA 108 (90 Base) MCG/ACT 2 puffs as needed Inhalation every 4 hrs for 30 days Active Ibuprofen 800 MG 1 tablet with food o r milk as needed Orally Three times a day 09/01/2019 Not-Taking Valtrex 1 GM 1 tablet Orally 3 ti mes a day for 7 days 12/17/2020 Not-Taking Clobetasol Propionate 0.05 % 1 application Externally Twice a day for 10 day(s) 03/10/2021 Active Aspir-Low 81 MG 1 tablet Orally Once a day for 30 day(s) Active VITAL SIGNS BMI 39.3 kg/m2 09/07/2024 Blood pressure systolic 138 mm Hg 09/07/19 25 Blood pressure diastolic 80 mm Hg 025 Height 64 in 09/07/2024 Weight 229 lbs 09/07/2024 Encounters Encounter Location Date Provider Diagnosis Ilir Hodge MD [address] [place] [address] [place] [phone] 09/07/2024 Ilir Hodge Type 2 diabetes mellitus without complications E11.9 and Hives of unknown origin L50.9 ASSESSMENTS Encounter Date Diagnosis Assessment Notes Treatment Notes Treatment Clinical Notes 09/07/2024 Type 2 diabetes mellitus without complications (ICD-10 - E11.9) stable, will continue current regiment 09/07/2024 Hives of unknown origin (ICD-10 - L50.9) is going to see vice president planning in one month. PLAN OF TREATMENT Medication Medication Name Sig Start Date Stop Date Notes HumaLOG KwikPen 100 UNIT/ML 60 units Subcutaneous Treatment Notes Assessment Notes Type 2 diabetes mellitus wit hout complications stable, will continue current regiment Hives of unknown origin is going to see vice president planning in one month. Next Appt Details Follow Up: 2 Months, Reason: Provider Name:Ilir alford, 11/06/2024 09:00:00 AM, [address] [place] [address], Suite [facility], [place], [place], [phone], Provider Name:Ilir alford, 01/08/2025 07:30:00 AM, [address] [place] [address], Suite [facility], [place], [place], [phone], Provider Name:Ilir alford, 01/15/2025 09:30:00 AM, [address] [place] [address], Suite [facility], [place], [place], [phone], Progress Notes * Examination Category Sub-Category Detail Notes General Examination GENERAL APPEARANCE: abnormal small hives on forearms. HEAD: normocephalic HEART: no murmurs, rubs, ga llops LUNGS: clear to auscultatio n bilaterally , good air movement , no wheezes, rales, rhonchi SKIN: good turgor
--- OUTSIDE RECORDS SUMMARY | 2024-09-20 11:18 | XMS_ITS ---
Author Organization Ilir Hodge MD Address [address] [place] [phone] Care Team Providers Care Configuration Management Specialist Name Role Phone Ilir Hodge Primary Care Provider ALLERGIES Allergen (clinical drug ingredient) Drug/Non Drug Allergy documented on EMR Reaction Allergy Type Onset Date Status dulaglutide Trulicity pancreatitis Drug Allergy Ac tive Penicillin G Benzathine hives Drug Allergy Active sulfamethoxazole / trimethoprim Bactrim low platelets Drug Allergy Active REASON FOR VISIT hives all over since March getting worse, BS is 86 MEDICATIONS Medication SIG (Take, Route, Frequency, Duration) Notes Start Date End Date Status amLODIPine Besylate 5 MG 1 tablet Orally Once a day 10/24/2019 Active Sertraline HCl 100MG take 1 tablet by mo ut once daily for 90 days Orally Once a day for 90 days Active predniSONE 20 MG 1 tablet Orally Once a day for 30 day(s) 08/14/2024 Active Lisinopril-hydroCHLOROth iazide 20-12.5 MG take 2 tablet by mouth once daily for 90 days Orally Once a day Active Vitamin D3 125 MCG (5000 UT) 1 tablet Orally Once a day 11/05/2017 Active Aspir-Low 81 MG 1 tablet Orally Once a day for 30 day(s) Active Clobetasol Propionate 0.05 % 1 application Externally Twice a day for 10 day(s) 03/10/2021 Active Valtrex 1 GM 1 tablet Orally 3 ti mes a day for 7 days 12/17/2020 Not-Taking Albuterol Sulfate HFA 108 (90 Base) MCG/ACT 2 puffs as needed Inhalation every 4 hrs for 30 days Active Ibuprofen 800 MG 1 tablet with food o r milk as needed Orally Three times a day 09/01/2019 Not-Taking HumaLOG KwikPen 100 UNIT/ML 60 units Subcutaneous Active Rosuvastatin Calcium 40 MG 1 tablet Orally Once a day Active Paxlovid (300/100) 20 x 150 MG & 10 x 100MG 2 tabs of nirm and 1 tab sukhjinder Orally twice for 5 days 05/15/2022 Not-Taking Vitamin D3 50 MCG (2000 UT) 1 capsule Orally Once a day for 30 day(s) 01/01/2022 Not-Taking PROBLEMS Problem Type ICD Code Onset Dates Problem Status W/U Status Risk SNOMED Code Notes Problem Hypertensive crisis (I16.9) Active confirmed [id number] VITAL SIGNS BMI 38.10 kg/m2 08/14/2024 Blood pressure systolic 212 mm Hg 08/14/20 24 Blood pressure diastolic 116 mm Hg 024 Height 64 in 08/14/2024 Weight 222 lbs 08/14/2024 Encounters Encounter Location Date Provider Diagnosis Ilir Hodge MD [address] [place] [address] [address] [place], [place] [phone] 08/14/2024 Ilir Hodge Type 2 diabetes mellitus without complications E11.9 ; Hypertensive crisis I16.9 and Hives of unknown origin L50.9 ASSESSMENTS Encounter Date Diagnosis Assessment Notes Treatment Notes Treatment Clinical Notes 08/14/2024 Type 2 diabetes mellitus without complications (ICD-10 - E11.9) doing well, will continue current regiment 08/14/2024 Hypertensive crisis (ICD-10 - I16.9) will send to the er 08/14/2024 Hives of unknown origin (ICD-10 - L50.9) will try a low dose of prednisone and watch sugars closely, patient verbalized understanding od medication and directions for use PLAN OF TREATMENT Medication Medication Name Sig Start Date Stop Date Notes amLODIPine Besylate 5 MG 1 tablet Orally Once a day 2019 predniSONE 20 MG 1 tablet Orally Once a day for 30 day(s) 08/14/2024 Lisinopril-hydroCHLOROthiazi de 20-12.5 MG take 2 tablet by mouth once daily for 90 days Orally Once a day HumaLOG KwikPen 100 UNIT/ML 60 units Subcutaneous Treatment Notes Assessment Notes Type 2 diabetes mellitus wit hout complications doing well, will continue current regime nt Hypertensive crisis will send to the er Hives of unknown origin will try a low d ose of prednisone and watch sugars closely, patient verbalized understanding od medication and directions for use Next Appt Details Provider Name:Ilir alford, 11/06/2024 09:00:00 AM, [address] [place] [address], [address], [phone], Provider Name:Ilir alford, 01/08/2025 07:30:00 AM, [address] [place] [address], [address], [phone], Provider Name:Ilir alford, 01/15/2025 09:30:00 AM, [address] [place] [address], [address], [phone], Progress Notes * Examination Category Sub-Category Detail Notes General Examination GENERAL APPEARANCE: well dev eloped, well nourished HEAD: normocephalic HEART: no murmurs, rubs, ga llops , regular rate and rhythm LUNGS: no wheezes, rales, r honchi , good air movement , clear to auscultation bilaterally SKIN: abnormal covered in hives a nd with sores on legs
--- OUTSIDE RECORDS SUMMARY | 2024-09-20 11:18 | XMS_ITS ---
Author Organization Ilir Hodge MD Address [address] [place] [phone] Care Team Providers Care Lpc Name Role Phone Ilir Hodge Primary Care Provider [phone] ALLERGIES Allergen (clinical drug ingredient) Drug/Non Drug Allergy documented on EMR Reaction Allergy Type Onset Date Status dulaglutide Trulicity pancreatitis Drug Allergy Ac tive Penicillin G Benzathine hives Drug Allergy Active sulfamethoxazole / trimethoprim Bactrim low platelets Drug Allergy Active REASON FOR REFERRAL Reason Hives of unknow orig in Diagnosis 1 Hives of unknown gregg gin (L50.9) Referral Organization Ilir Hodge MD Referring Provider First Name Ilir Referring Provider Last Name Ayesha Referring Provider Speciality Internal M edicine Referred Provider COREY CHAND Referred Provider Specialty Allergy/Immu nology General Notes Letty,Penny 11:58:48 AM EST > info faxed to the [facility] office [phone] they will call patient with an appt, Letty Penny 09/15/2024 02:42:20 PM > referral info mailed to patient Referral Priority Routine Referral Appointment Date 11/13/2024 REASON FOR VISIT 1 week, Blood sugar is 90 MEDICATIONS Medication SIG (Take, Route, Frequency, Duration) Notes Start Date End Date Status amLODIPine Besylate 10 MG 1 tablet Orally Once a day for 90 days 10/24/2019 Active Albuterol Sulfate HFA 108 (90 Base) MCG/ACT 2 puffs as needed Inhalation every 4 hrs for 30 days Active Ibuprofen 800 MG 1 tablet with food o r milk as needed Orally Three times a day 09/01/2019 Not-Taking Aspir-Low 81 MG 1 tablet Orally Once a day for 30 day(s) Active Clobetasol Propionate 0.05 % 1 application Externally Twice a day for 10 day(s) 03/10/2021 Active Lisinopril-hydroCHLOROth iazide 20-12.5 MG take 2 tablet by mouth once daily for 90 days Orally Once a day Active HumaLOG KwikPen 100 UNIT/ML 60 units Subcutaneous Active Paxlovid (300/100) 20 x 150 MG & 10 x 100MG 2 tabs of nirm and 1 tab sukhjinder Orally twice for 5 days 05/15/2022 Not-Taking Vitamin D3 50 MCG (2000 UT) 1 capsule Orally Once a day for 30 day(s) 01/01/2022 Not-Taking Valtrex 1 GM 1 tablet Orally 3 ti mes a day for 7 days 12/17/2020 Not-Taking predniSONE 20 MG 1 tablet Orally Once a day for 30 day(s) 08/14/2024 Active Vitamin D3 125 MCG (5000 UT) 1 tablet Orally Once a day 11/05/2017 Active Rosuvastatin Calcium 40 MG 1 tablet Orally Once a day Active Sertraline HCl 100MG take 1 tablet by mo ut once daily for 90 days Orally Once a day for 90 days Active VITAL SIGNS BMI 39.30 kg/m2 08/25/2024 Blood pressure systolic 192 mm Hg 08/25/20 24 Blood pressure diastolic 98 mm Hg 024 Height 64 in 08/25/2024 Weight 229 lbs 08/25/2024 weight is up 7 pounds since 08-14-24 Encounters Encounter Location Date Provider Diagnosis Ilir Hodge MD [address] [place] [address] Drive [address] [place] [phone] 08/25/2024 Ilir Hodge Type 2 diabetes mellitus without complications E11.9 ; Hives of unknown origin L50.9 and Essential hypertension I10 ASSESSMENTS Encounter Date Diagnosis Assessment Notes Treatment Notes Treatment Clinical Notes 08/25/2024 Type 2 diabetes mellitus without complications (ICD-10 - E11.9) doing well with the pump and even on the steroids 08/25/2024 Hives of unknown origin (ICD-10 - L50.9) referral to allergy 08/25/2024 Essential hypertension (ICD-10 - I10) running too high/ has been gaining a lot of weight. will increase her amlodipine to 10 mg and recheck bp in couple weeks PLAN OF TREATMENT Medication Medication Name Sig Start Date Stop Date Notes amLODIPine Besylate 10 MG 1 tablet Orall y Once a day for 90 days 10/24/2019 Treatment Notes Assessment Notes Type 2 diabetes mellitus wit hout complications doing well with the pump and even on the steroids Hives of unknown origin referral to [facility] Essential hypertension running too high/ has been gaining a lot of weight. will increase her amlodipine to 10 mg and recheck bp in couple weeks Referrals Referral Date Details 11/13/2024 11/13/2024, Hives of unknow origin , COREY CHAND Next Appt Details Follow Up: 2 Weeks, Reason: Provider Name:Ilir alford, 11/06/2024 09:00:00 AM, [address] [place] [address], Suite [facility], [place], [place], [phone], Provider Name:Ilir alford, 01/08/2025 07:30:00 AM, [address] [place] [address], Suite [facility], [place], [place], [phone], Provider Name:Ilir alford, 01/15/2025 09:30:00 AM, [address] [place] [address], Suite [facility], [place], [place], [phone], Progress Notes * Examination Category Sub-Category Detail Notes General Examination GENERAL APPEARANCE: well dev eloped, well nourished HEAD: normocephalic HEART: no murmurs, rubs, ga llops , regular rate and rhythm LUNGS: no wheezes, rales, r honchi , good air movement , clear to auscultation bilaterally SKIN: few hives on arms Consultation Request Notes Referral Date Referring Provider Referred Provider Not german 08/25/2024 Ilir Hodge JONATHAN Hives of unknow origin
== END 2024-09-20 10:18 | disposition home or self-care (01) ==
LOC: HO.MAMMO 10:17
PROVIDERS: PCP Internal Medicine; Visit Provider Internal Medicine
DX: Z12.31 Encounter for screening mammogram for malignant neoplasm of breast (principal)
CPT/HCPCS: 77063; 77067

== ENCOUNTER → 2024-09-20 10:30 | Outpatient (BNV) | payer MEDICARE, OTHER, SELFPAY | PROVIDERS: PCP Internal Medicine; Visit Provider Internal Medicine | DX: Z12.31 Encounter for screening mammogram for malignant neoplasm of breast (principal) | CPT/HCPCS: 77063; 77067 ==

== ENCOUNTER 2024-09-28 08:12 | Outpatient (AMB) | payer MEDICARE, OTHER, SELFPAY ==
--- NOTE | 2024-09-28 08:19 | AM.OFFWIN_ITS ---
Intake Vital Signs 09/28/24 08:20 Weight 219 lb BP 112/74 Blood Pressure Location Lt brachial Position Sitting Pulse 107 H Pulse Source Pulse Oximeter Temp 98.5 F Temp Source Oral Pulse Oximetry (%) 97 Oxygen Delivery Method Room Air Intake Visit Reasons: EP Hives Intake Note: Patient here for hives all over body that has been present for a while now. Patient Tobacco Use Status: Current everyday Tobacco user Allergies Penicillins [PENICILLINS] Allergy (Severe, Verified 09/28/24 08:20) RASH Sulfa (Sulfonamide Antibiotics) [SULFA (SULFONAMIDE ANTIBIOTICS)] Allergy (Severe, Verified 09/28/24 08:20) THROMBOCYTOPENIA, severe penicillin V Allergy (Unknown, Verified 09/28/24 08:20) rash Do you need a note to return to daycare/school/sports/work: No HPI HPI Comments History of Present Illness Details 64 y/o female patient who presents to [facility] walk in clinic with c/o whole body Hives. This is a chronic ongoing on issue that does not go away. She does have an appointment with an life insurance sales agent in October. 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 HLD (hyperlipidemia) Hypertension Asthma Nephrolithiasis Diabetes Surgical History History of knee replacement Family History Family/Other No known health problems Social History Household Members: Spouse Housing: House Do you presently have visiting nurse or other home services: No Alcohol intake: never Patient Tobacco Use Status: Current everyday Tobacco user service: No Current occupational status: disabled Review of Systems Const All systems reviewed & are unremarkable except as noted in HPI and below Physical Exam Vital Signs: Last Vital Signs Temp 98.5 F 09/28/24 08:20 Pulse 107 H 09/28/24 08:20 BP 112/74 09/28/24 08:20 Pulse Ox 97 09/28/24 08:20 Oxygen Delivery Method Room Air 09/28/24 08:20 Const General: comfortable Orientation/consciousness: patient oriented x3 Resp Effort & Inspection: normal respiratory effort Auscultation: clear to auscultation bilaterally Cardio Heart sounds: S1 normal heart sound present and S2 normal heart sound present Skin Other: Hives upper extremities, torso and lower extremities. Neuro General: patient oriented x3 Assessment & Plan Assessment & Plan (1) Hives: Code(s): L50.9 - Urticaria, unspecified Plan: Ordered Prednisone, Pt reports this usually works for her. F/U with Alergist as scheduled. Medications: New prednisone 20 mg PO DAILY 10 tabs 0RF L50.9 - Urticaria, unspecified Discontinued prednisone Discontinued Reason: Patient Completed Course 40 mg (2 x 20 mg) PO DAILY 5 days 10 tabs 0RF Coding Level of Care Code Est Pt Level 3 (57579) Diagnoses Hives L50.9 Time Spent (min) 15
[2024-09-28 08:20] VITALS: BP 112/74; PULSE 107; TEMP 36.9; O2SAT 97
--- OUTSIDE RECORDS SUMMARY | 2024-09-28 11:02 | XMS_ITS ---
Author Organization Ilir Hodge MD Address [address] [place] [phone] Care Team Providers Care Legger Press Operator Name Role Phone Ilir Hodge Primary Care Provider Allergies Allergen (clinical drug ingredient) Drug/Non Drug Allergy documented on EMR Reaction Allergy Type Onset Date Status dulaglutide Trulicity pancreatitis Drug Allergy Ac tive Penicillin G Benzathine hives Drug Allergy Active sulfamethoxazole / trimethoprim Bactrim low platelets Drug Allergy Active REASON FOR VISIT hives all over since March getting worse, BS is 86 Medications Medication SIG (Take, Route, Frequency, Duration) Notes [...] a day for 30 day(s) 01/01/2022 Not-Taking Problems Problem Type SNOMED Code ICD Code Onset Dates Problem Status W/U Status Risk Notes Problem [id number] Hypertensive crisis (I16.9) Active confirmed Vital Signs Blood pressure systolic 212 mm Hg 08/14/20 24 Blood pressure diastolic 116 mm Hg 024 Height 64 in 08/14/2024 Weight 222 lbs 08/14/2024 BMI 38.10 kg/m2 08/14/2024 Encounters Encounter Location Date Provider Diagnosis Ilir Hodge MD [address] [place] [address] [address] [place], [place] [phone] 08/14/2024 Ilir Hodge Type 2 diabetes mellitus without complications E11.9 ; Hypertensive crisis I16.9 and Hives of unknown origin L50.9 Assessments Encounter Date Diagnosis (ICD Code) Assessment Notes Treatment Notes Treatment Clinical Notes Section Notes 08/14/2024 Type 2 diabetes mellitus without complications (ICD-10 - E11.9) doing well, will continue current regiment 08/14/2024 Hypertensive crisis (ICD-10 - I16.9) will send to the er 08/14/2024 Hives of unknown origin (ICD-10 - L50.9) will try a low dose of prednisone and watch sugars closely, patient verbalized understanding od medication and directions for use Plan Of Treatment Medication Medication Name Sig Start Date Stop [...] Details Provider Name:Ilir alford, 11/06/2024 09:00:00 AM, [address] [place] [address], [address], [phone], Provider Name:Ilir alford, 01/08/2025 07:30:00 AM, [address] [place] [address], [address], [phone], Provider Name:Ilir alford, 01/15/2025 09:30:00 AM, [address] [place] [address], [address], [phone], Progress Notes * SAVANNAH SIFUENTES EDOB: (64 yo F)Acc No.[id number]:08/14/2024 Progress Notes Patient:?SAVANNAH SIFUENTES Provider:?Ilir Hodge MD :1960???Age:64 Y???Sex:Female D ate:08/14/2024 Address:[address] [place], [place] [address]jeremy ERNESTINE [id number] Subjective: * Chief Complaints: * ???hives all over since st getting worseBS is 86 * HPI: ???Symptom(s):? patient is a 64 yo female here with complaint of hives all over since March, has pump off for 2 weeks and no change. took cherelle and 20 minutes later is all gone. has dry cough so starting taking omeprazole and it calmed the cough. taking omeprazole daily for one week. * ROS:?General/Constitutional:?Denies?Chills.?Denies?Fatigue.?Denies?Fever.?Denies?Headache.?ENT:?Patient denies?decreased sense of smell , any loss of taste , sore throat.?Denies?Sore throat.?Respiratory:?Denies?Cough.?Denies?Shortness of breath at rest.?Denies?Shortness of breath with exertion.?Gastrointestinal:?Denies?Diarrhea.?Denies?Nausea.?Musculoskeletal:?Patient denies?muscle aches.?Peripheral Vascular:?Patient denies?red and blue toes.? * Medical History:? * Surgical History:? * Hospitalization/Major Diagno stic Procedure:? * Medications:?TakingAspir-Low 81 MG Tablet Delayed Release 1 tablet Orally Once a dayClobetasol Propionate 0.05 % Cream 1 application Externally Twice a dayAlbuterol Sulfate HFA 108 (90 Base) MCG/ACT Aerosol Solution 2 puffs as needed Inhalation every 4 hrsSertraline HCl 100MG Tablet take 1 tablet by mouth once daily for 90 days Orally Once a dayLisinopril-hydroCHLOROthiazide 20-12.5 MG Tablet take 2 tablet by mouth once daily for 90 days Orally Once a dayamLODIPine Besylate 5 MG Tablet 1 tablet Orally Once a dayVitamin D3 125 MCG (5000 UT) Capsule 1 tablet Orally Once a dayHumaLOG KwikPen 100 UNIT/ML Solution Pen-injector 60 units Subcutaneous Rosuvastatin Calcium 40 MG Tablet 1 tablet Orally Once a dayTaking Aspir-Low 81 MG Tablet Delayed Release 1 tablet Orally Once a dayTaking Clobetasol Propionate 0.05 % Cream 1 application Externally Twice a dayTaking Albuterol Sulfate HFA 108 (90 Base) MCG/ACT Aerosol Solution 2 puffs as needed Inhalation every 4 hrsTaking Sertraline HCl 100MG Tablet take 1 tablet by mouth once daily for 90 days Orally Once a dayTaking Lisinopril-hydroCHLOROthiazide 20-12.5 MG Tablet take 2 tablet by mouth once daily for 90 days Orally Once a dayTaking amLODIPine Besylate 5 MG Tablet 1 tablet Orally Once a dayTaking Vitamin D3 125 MCG (5000 UT) Capsule 1 tablet Orally Once a dayTaking HumaLOG KwikPen 100 UNIT/ML Solution Pen-injector 60 units Subcutaneous Taking Rosuvastatin Calcium 40 MG Tablet 1 tablet Orally Once a dayNot-Taking/PRNPaxlovid (300/100) 20 x 150 MG & 10 x 100MG Tablet Therapy Pack 2 tabs of nirm and 1 tab sukhjinder Orally twiceVitamin D3 50 MCG (2000 UT) Capsule 1 capsule Orally Once a dayValtrex 1 GM Tablet 1 tablet Orally 3 times a dayIbuprofen 800 MG Tablet 1 tablet with food or milk as needed Orally Three times a dayNot- Taking/PRN Paxlovid (300/100) 20 x 150 MG & 10 x 100MG Tablet Therapy Pack 2 tabs of nirm and 1 tab sukhjinder Orally twiceNot-Taking/PRN Vitamin D3 50 MCG (2000 UT) Capsule 1 capsule Orally Once a dayNot-Taking/PRN Valtrex 1 GM Tablet 1 tablet Orally 3 times a dayNot-Taking/PRN Ibuprofen 800 MG Tablet 1 tablet with food or milk as needed Orally Three times a dayDiscontinuedLantus SoloStar 100 UNIT/ML Solution Pen-injector 30 units once a day Medication List reviewed and reconciled with the patientDiscontinued Lantus SoloStar 100 UNIT/ML Solution Pen-injector 30 units once a day Medication List reviewed and reconciled with the patient * Allergies:?Bactrim: low plat eletsPenicillin G Benzathine: hivesTrulicity: pancreatitisyes[Allergies Verified] Objective: * Vitals:?Ht: 64, Wt:222, BMI: 38.10, BP:212/116, Repeat BP:230/115. * Examination: ???General Examination: ?GENERAL APPEARANCE:?well developed, well nourished.?HEAD:?normocephalic.?SKIN:?abnormal covered in hives a nd with sores on legs.?HEART:?no murmurs, rubs, gallops , regular rate and rhythm.?LUNGS:?no wheezes, rales, rhonchi , good air movement , clear to auscultation bilaterally.? Assessment: * Assessment: 1.?Type 2 diabetes mellitus without complications - E11.9 (Primary)?2.?Hypertensive crisis - I16.9?3.?Hives of unknown origin - L50.9? Plan: * Treatment: 2.?Hypertensive crisis? Continue Lisinopril-hydroCHLOROthiazide Tablet, 20-12.5 MG, take 2 tablet by mouth once daily for 90 days, Orally, Once a day;?Continue amLODIPine Besylate Tablet, 5 MG, 1 tablet, Orally, Once a day.?? Notes: will send to the er?? 3.?Hives of unknown origin? Start predniSONE Tablet, 20 MG, 1 tablet, Orally, Once a day, 30 day(s), 30.?? Notes: will try a low dose of prednisone and watch sugars closely, patient verbalized understanding od medication and directions for use?? * Procedure Codes:?G2211 Compl ex e/m visit add on * * Sign off status: Completed true * Provider:?Ilir Hodge MD Date:?1 10/15/2023 Generated for Valentin medina/Alexia/Amberitting on:?09/28/2024 11:02 AM EST History and Physical Notes * HPI (History of Present Illness) Category Sub-Category Detail Notes Category Not es Symptom(s) patient is a 64 yo female here with complaint of hives all over since March, has pump off for 2 weeks and no change. took cherelle and 20 minutes later is all gone. has dry cough so starting taking omeprazole and it calmed the cough. taking omeprazole daily for one week Examination Category Sub-Category Detail Notes Category Not es General Examination GENERAL APPEARANCE: well developed , well nourished HEAD: normocephalic HEART: no murmurs, rubs, ga llops , regular rate and rhythm LUNGS: no wheezes, rales, r honchi , good air movement , clear to auscultation bilaterally SKIN: abnormal covered in hives a nd with sores on legs
--- OUTSIDE RECORDS SUMMARY | 2024-09-28 11:02 | XMS_ITS ---
Author Organization Ilir Hodge MD Address [address] [place] [phone] Care Team Providers Care Mgmt Analyst Name Role Phone Ilir Hodge Primary Care Provider Allergies Allergen (clinical drug ingredient) Drug/Non Drug Allergy documented on EMR Reaction Allergy Type Onset Date Status dulaglutide Trulicity pancreatitis Drug Allergy Ac tive Penicillin G Benzathine hives Drug Allergy Active sulfamethoxazole / trimethoprim Bactrim low platelets Drug Allergy Active Reason For Referral Reason Hives of unknow orig in Diagnosis 1 Hives of unknown gregg gin (L50.9) Referral Organization Ilir Hodge MD Referring Provider First Name Ilir Referring Provider Last Name Ayesha Referring Provider Speciality Internal M edicine Referred Provider COREY CHAND Referred Provider Specialty Allergy/Immu nology General Notes Letty,Penny 11:58:48 AM EST > info faxed to the [facility] office [phone] they will call patient with an appt, Letty Penny 09/15/2024 02:42:20 PM > referral info mailed to patient Referral Priority Routine Referral Appointment Date 11/13/2024 REASON FOR VISIT 1 week, Blood sugar is 90 Medications Medication SIG (Take, Route, Frequency, Duration) [...] Once a day for 90 days Active Vital Signs Blood pressure systolic 192 mm Hg 08/25/20 24 Blood pressure diastolic 98 mm Hg 024 Height 64 in 08/25/2024 Weight 229 lbs 08/25/2024 BMI 39.30 kg/m2 08/25/2024 weight is up 7 pounds since 08-14-24 Encounters Encounter Location Date Provider Diagnosis Ilir Hodge MD [address] [place] [address] [place] [phone] 08/25/2024 Ilir Hodge Type 2 diabetes mellitus without complications E11.9 ; Hives of unknown origin L50.9 and Essential hypertension I10 Assessments Encounter Date Diagnosis (ICD Code) Assessment Notes Treatment Notes Treatment Clinical Notes Section Notes 08/25/2024 Type 2 diabetes mellitus without complications (ICD-10 - E11.9) doing well with the pump and even on the steroids 08/25/2024 Hives of unknown origin (ICD-10 - L50.9) referral to allergy 08/25/2024 Essential hypertension (ICD-10 - I10) running too high/ has been gaining a lot of weight. will increase her amlodipine to 10 mg and recheck bp in couple weeks Plan Of Treatment Medication Medication Name Sig Start Date Stop Date Notes amLODIPine Besylate 10 MG 1 tablet Orall y Once a day for 90 days 10/24/2019 Treatment Notes Assessment Notes Type 2 diabetes mellitus wit hout complications doing well with the pump and even on the steroids Hives of unknown origin referral to [facility] Essential hypertension running too high/ has been gaining a lot of weight. will increase her amlodipine to 10 mg and recheck bp in couple weeks Referrals Referral Date Details 08/25/2024 08/25/2024, Hives of unknow origin , COREY MANNIE Next Appt Details Follow Up: 2 Weeks, Reason: Provider Name:Ilir alford, 11/06/2024 09:00:00 AM, [address] [place] [address], Suite [facility], [place], [place], [phone], Provider Name:Ilir alford, 01/08/2025 07:30:00 AM, [address] [place] [address], [address] [place] [address], [phone], Provider Name:Ilir alford, 01/15/2025 09:30:00 AM, [address] [place] [address], [place] [address], [place], [place], [phone], Progress Notes * SAVANNAH SIFUENTES EDOB: (64 yo F)Acc No.[id number]:08/25/2024 Progress Notes Patient:?SAVANNAH SIFUENTES Provider:?Ilir Hodge MD :1960???Age:64 Y???Sex:Female D ate:08/25/2024 Address:[address] [place], [place] [id number] Subjective: * Chief Complaints: * ???1 weekBlood sugar is 90 * HPI: ???Symptom(s):? patient is a 64 yo female here for follow up visit, was seen in ER, bp was taken care of in er in 10 mins., treated for hives with prednisone 20 mg per day and still getting some. * ROS:?General/Constitutional:?Denies?Chills.?Denies?Fatigue.?Denies?Fever.?Denies?Headache.?ENT:?Patient denies?decreased sense of smell , any loss of taste , sore throat.?Denies?Sore throat.?Respiratory:?Denies?Cough.?Denies?Shortness of breath at rest.?Denies?Shortness of breath with exertion.?Gastrointestinal:?Denies?Diarrhea.?Denies?Nausea.?Musculoskeletal:?Patient denies?muscle aches.?Peripheral Vascular:?Patient denies?red and blue toes.?Skin:?Admits?Hives.? * Medical History:? * Surgical History:? * [...] daily for 90 days Orally Once a dayVitamin D3 125 MCG (5000 UT) Capsule 1 tablet Orally Once a dayRosuvastatin Calcium 40 MG Tablet 1 tablet Orally Once a daypredniSONE 20 MG Tablet 1 tablet Orally Once a dayLisinopril-hydroCHLOROthiazide 20-12.5 MG Tablet take 2 tablet by mouth once daily for 90 days Orally Once a dayamLODIPine Besylate 5 MG Tablet 1 tablet Orally Once a dayHumaLOG KwikPen 100 UNIT/ML Solution Pen-injector 60 units Subcutaneous Taking Aspir-Low 81 MG Tablet Delayed Release 1 tablet Orally Once a dayTaking Clobetasol Propionate 0.05 % Cream 1 application Externally Twice a dayTaking Albuterol Sulfate HFA 108 (90 Base) MCG/ACT Aerosol Solution 2 puffs as needed Inhalation every 4 hrsTaking Sertraline HCl 100MG Tablet take 1 tablet by mouth once daily for 90 days Orally Once a dayTaking Vitamin D3 125 MCG (5000 UT) Capsule 1 tablet Orally Once a dayTaking Rosuvastatin Calcium 40 MG Tablet 1 tablet Orally Once a dayTaking predniSONE 20 MG Tablet 1 tablet Orally Once a dayTaking Lisinopril-hydroCHLOROthiazide 20-12.5 MG Tablet take 2 tablet by mouth once daily for 90 days Orally Once a dayTaking amLODIPine Besylate 5 MG Tablet 1 tablet Orally Once a dayTaking HumaLOG KwikPen 100 UNIT/ML Solution Pen-injector 60 units Subcutaneous Not-Taking/PRNPaxlovid (300/100) 20 x 150 MG & 10 x 100MG Tablet Therapy Pack 2 tabs of nirm and 1 tab sukhjinder Orally twiceVitamin D3 50 MCG (2000 UT) Capsule 1 capsule Orally Once a dayValtrex 1 GM Tablet 1 tablet Orally 3 times a dayIbuprofen 800 MG Tablet 1 tablet with food or milk as needed Orally Three times a dayMedication List reviewed and reconciled with the patientNot-Taking/PRN Paxlovid (300/100) 20 x 150 MG & 10 x 100MG Tablet Therapy Pack 2 tabs of nirm and 1 tab sukhjinder Orally twiceNot-Taking/PRN Vitamin D3 50 MCG (2000 UT) Capsule 1 capsule Orally Once a dayNot-Taking/PRN Valtrex 1 GM Tablet 1 tablet Orally 3 times a dayNot- Taking/PRN Ibuprofen 800 MG Tablet 1 tablet with food or milk as needed Orally Three times a dayMedication List reviewed and reconciled with the patient * Allergies:?Bactrim: low plat eletsPenicillin G Benzathine: hivesTrulicity: pancreatitisyes[Allergies Verified] Objective: * Vitals:?Ht: 64, Wt:229, BMI: 39.30, BP:192/98, Repeat BP:185/100 weight is up 7 pounds since 08-14-24. * Examination: ???General Examination: ?GENERAL APPEARANCE:?well developed, well nourished.?HEAD:?normocephalic.?SKIN:?few hives on arms.?HEART:?no murmurs, rubs, gallops , regular rate and rhythm.?LUNGS:?no wheezes, rales, rhonchi , good air movement , clear to auscultation bilaterally.? Assessment: * Assessment: 1.?Type 2 diabetes mellitus without complications - E11.9?2.?Hives of unknown origin - L50.9?3.?Essential hypertension - I10? Plan: * Treatment: 2.?Hives of unknown origin? Notes: referral to allergy? Referral To:COREY CHAND??Allergy/Immunology ?Reason:Hives of unknow origin 3.?Essential hypertension? Notes: running too high/ has been gaining a lot of weight. will increase her amlodipine to 10 mg and recheck bp in couple weeks?? * Procedure Codes:? * Follow Up:?2 Weeks * * Sign off status: Completed true * Provider:?Ilir Hodge MD Date:?1 10/26/2023 Generated for Valentin medina/Alexia/eTyunielsmitting on:?09/28/2024 11:01 AM EST History and Physical Notes * HPI (History of Present Illness) Category Sub-Category Detail Notes Category Not es Symptom(s) patient is a 64 yo female here for follow up visit, was seen in ER, bp was taken care of in er in 10 mins., treated for hives with prednisone 20 mg per day and still getting some. Examination Category Sub-Category Detail Notes Category Not es General Examination GENERAL APPEARANCE: well developed , well nourished HEAD: normocephalic HEART: no murmurs, rubs, ga llops , regular rate and rhythm LUNGS: no wheezes, rales, r honchi , good air movement , clear to auscultation bilaterally SKIN: few hives on arms Consultation Request Notes Referral Date Referring Provider Referred Provider Not es 08/25/2024 Ilir Hodge JONATHAN Hives of unknow origin
--- OUTSIDE RECORDS SUMMARY | 2024-09-28 11:02 | XMS_ITS ---
Author Organization Ilir Hodge MD Address [address] [place] [phone] Care Team Providers Care Vp Genetic Name Role Phone Ilir Hodge Primary Care Provider Allergies Allergen (clinical drug ingredient) Drug/Non Drug Allergy documented on EMR Reaction Allergy Type Onset Date Status dulaglutide Trulicity pancreatitis Drug Allergy Ac tive Penicillin G Benzathine hives Drug Allergy Active sulfamethoxazole / trimethoprim Bactrim low platelets Drug Allergy Active REASON FOR VISIT 2 week Medications Medication SIG (Take, Route, Frequency, Duration) [...] Sertraline HCl 100MG take 1 tablet by [place] [facility] once daily for 90 days Orally Once [...] Once a day for 30 day(s) Active Vital Signs Blood pressure systolic 138 mm Hg 09/07/19 25 Blood pressure diastolic 80 mm Hg 025 Height 64 in 09/07/2024 Weight 229 lbs 09/07/2024 BMI 39.3 kg/m2 09/07/2024 Encounters Encounter Location Date Provider Diagnosis Ilir Hodge MD [address] [place] [address] [place] [phone] 09/07/2024 Ilir Hodge Type 2 diabetes mellitus without complications E11.9 and Hives of unknown origin L50.9 Assessments Encounter Date Diagnosis (ICD Code) Assessment Notes Treatment Notes Treatment Clinical Notes Section Notes 09/07/2024 Type 2 diabetes mellitus without complications (ICD-10 - E11.9) stable, will continue current regiment 09/07/2024 Hives of unknown origin (ICD-10 - L50.9) is going to see manager garage in one month. Plan Of Treatment Medication Medication Name Sig Start Date Stop Date Notes HumaLOG KwikPen 100 UNIT/ML 60 units Subcutaneous Treatment Notes Assessment Notes Type 2 diabetes mellitus wit hout complications stable, will continue current regiment Hives of unknown origin is going to see manager [facility] in one month. Next Appt Details Follow Up: 2 Months, Reason: Provider Name:Ilir Forrester ier, 11/06/2024 09:00:00 AM, [address] [facility], [address], [place], [place], [phone], Provider Name:Ilir Forrester ier, 01/08/2025 07:30:00 AM, [address] [place] [address], [address], [place], [place], [phone], Provider Name:Ilir Forrester ier, 01/15/2025 09:30:00 AM, [address] [place] [address], [address], [place], [place], [phone], Progress Notes * SAVANNAH SIFUENTES EDOB: (64 yo F)Acc No.[id number]:09/07/2024 Patient:?SAVANNAH SIFUENTES Provider:?Ilir Hodge MD :1960???Age:64 Y???Sex:Female D ate:09/07/2024 Address:[address] [place] [address] Subjective: * Chief Complaints: * ???2 week * HPI: ???Symptom(s):? patient is a 64 yo female here for 2 week follow upvisit, hives still presnt. has some this morning. off prednisone completely now. was on it for 35 days. sugar is fine. * ROS:?General/Constitutional:?Denies?Chills.?Denies?Fatigue.?Denies?Fever.?Denies?Headache.?ENT:?Patient denies?decreased sense of smell , any loss of taste , sore throat.?Denies?Sore throat.?Respiratory:?Denies?Cough.?Denies?Shortness of breath at rest.?Denies?Shortness of breath with exertion.?Cardiovascular:?Denies?Chest pain at rest.?Denies?Chest pain with exertion.?Denies?Dizziness.?Denies?Fluid accumulation in the legs.?Denies?Palpitations.?Denies?Shortness of breath.?Gastrointestinal:?Denies?Diarrhea.?Denies?Nausea.?Musculoskeletal:?Patient denies?muscle aches.?Peripheral Vascular:?Patient denies?red and blue toes.? [...] daily for 90 days Orally Once a dayHumaLOG KwikPen 100 UNIT/ML Solution Pen-injector 60 units Subcutaneous amLODIPine Besylate 10 MG Tablet 1 tablet Orally Once a [...] for 90 days Orally Once a dayTaking HumaLOG KwikPen 100 UNIT/ML Solution Pen-injector 60 units Subcutaneous Taking amLODIPine Besylate 10 MG Tablet 1 tablet Orally Once a [...] milk as needed Orally Three times a dayNot-Taking/PRN Paxlovid (300/100) 20 x 150 MG & [...] milk as needed Orally Three times a dayDiscontinuedpredniSONE 20 MG Tablet 1 tablet Orally Once a dayDiscontinued predniSONE 20 MG Tablet 1 tablet Orally Once a day * Allergies:?Bactrim: low plat eletsPenicillin G Benzathine: hivesTrulicity: pancreatitisyes[Allergies Verified] Objective: * Vitals:?Ht: 64, Wt: 229, BMI :39.3, BP:138/80, Wt-k.87. * Examination: ???General Examination: ?GENERAL APPEARANCE:?abnormal small hives on forearms..?HEAD:?normocephalic.?SKIN:?good turgor.?HEART:?no murmurs, rubs, gallops.?LUNGS:?clear to auscultation bilaterally , good air movement , no wheezes, rales, rhonchi.? Assessment: * Assessment: 1.?Type 2 diabetes mellitus without complications - E11.9?2.?Hives of unknown origin - L50.9? Plan: * Treatment: 2.?Hives of unknown origin? Notes: is going to see manager garage in one month. ?? * Procedure Codes:? * Follow Up:?2 Months * * Sign off status: Completed true * Provider:?Ilir oHdge MD Date:?0 09/07/2024 Generated for Valentin medina/Alexia/Amberitting on:?09/28/2024 11:02 AM EST History and Physical Notes * HPI (History of Present Illness) Category Sub-Category Detail Notes Category Not es Symptom(s) patient is a 64 yo female here for 2 week follow upvisit, hives still presnt. has some this morning. off prednisone completely now. was on it for 35 days. sugar is fine Examination Category Sub-Category Detail Notes Category Not es General Examination GENERAL APPEARANCE: abnormal small hives on forearms. HEAD: normocephalic HEART: no murmurs, rubs, ga llops LUNGS: clear to auscultatio n bilaterally , good air movement , no wheezes, rales, rhonchi SKIN: good turgor
== END 2024-09-28 08:45 | disposition home or self-care (01) ==
PROVIDERS: PCP Internal Medicine; Visit Provider Nurse Practitioner Family
DX: L50.9 Urticaria, unspecified (principal)

== ENCOUNTER 2024-10-12 12:02 | Outpatient (AMB) | payer MEDICARE, SELFPAY ==
--- NOTE | 2024-10-12 09:13 | A.OFFVIS_ITS ---
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 Intake Note: Patient presents today for a follow-up on Type 2 Diabetes Mellitus: Last Diabetic eye exam was on: Nilda the last year Last Podiatry exam was on: Patient does not see a Instructional Technology Instructor Most recent HbA1c: 10.5%, 10/12/2024 Random Glucose- 104 mg/dL, Today Locksmith Apprentice Required: No Accompanied by: Self / Same As Patient Allergies Penicillins [PENICILLINS] Allergy (Severe, Verified 10/12/24 12:37) RASH Sulfa (Sulfonamide Antibiotics) [SULFA (SULFONAMIDE ANTIBIOTICS)] Allergy (Severe, Verified 10/12/24 12:37) THROMBOCYTOPENIA, severe penicillin V Allergy (Unknown, Verified 10/12/24 12:37) rash HPI Comments Details: Patient is 64 yo female with insulin deficent DM diagnosed about 30 years ago who presents for management of diabetes. She was last seen 07/06/24. Hgb A1C 10/12/24 %, 07/06/24 6.7%. Down from pre pump of 9.7%. C-peptide 2021 0.26 negative esau D and negative islet cell antibody Diabetes medications: On an iLet pump . Meal announcements were 100% for breakfast, 100% usual for lunch and 100% usual for dinner Total daily dose of insulin was:. Dexcom average glucose: 188 14 day continuous glucose monitor report reviewed Glucose Managment indicator [ ] % Days with CGM data [ ] % TIme in ranges: Twenty % very high (above 250) 26.4 % high ?(181-250) 51.6 % in range ?(70-180] 2 % low (69-55) 0.2 % ?very low (below 54) Total daily dose of insulin 124 units basal 48 units weight in pump changed today Interpretation [in a 14 day. She entered in only 15 meals. She is having substantial postprandial excursions because of this ] Retinopathy: last eye exam Deniies neuropathy: Symptoms reported: denies numbness, tingling, cramping in lower extremities Has nephropathy: 08/14/2024 eGFR>60 07/03/24 462 Has HLD on statin and Zetia with most recent LDL 128 2021 Has hives with appointment with chestnut tanner coming up Exercise: Walks dogs for 1/2 hour on most days. 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 Absence of acromegalic features. Neck exam reveals nl size thyroid about 15 gms. No thyroid nodules palpable. No carotid bruits present. Lungs CTA. Heart S1 S2, Reg R/R. No M/R G. Skin exam reveals absence of vitiligo or acanthosis nigricans. No edema Visual exam of foot performed. No ulcerations or open lesions. No inter digit maceration or fissuring. No onychomycosis, no callouses. Sensation intact to monofilament exam. Vibratory sensation is normal with 128 Hz tuning fork. 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 Her numbers have declined because she is again stopped entering in her meals. Over 14 day. She entered in only 14 meals and she was advised that she will continue to have postprandial highs and higher A1c until she starts putting in her meals and announcing them with each meal. Her weight was change in the pump and this should give her slightly more insulin as well. She has been sick with a URI and plans to go to urgent care today She is aware that if she does not have a sensor pared with her pump that she needs to test her glucose every 4 hours with a glucometer in order to keep the pump functioning. The patient had an opportunity to ask questions regarding treatment plan. The patient expressed understanding and agreement with the above treatment plan. The patient is aware they should contact our office by phone for worsening glucose readings or for any low blood sugars which may warrant a change in di abetes medication. Compliance is encouraged with medications and any followup testing/consults which may have been ordered. Orders: Orders AMB Hemoglobin A1c Today E13.9 - Other specified diabetes mellitus without complications, S36.209S - Unspecified injury of unspecified part of pancreas, sequela AMB Glucose Monitoring Today E13.9 - Other specified diabetes mellitus without complications, S36.209S - Unspecified injury of unspecified part of pancreas, sequela Patient Instructions: Take 15 carb carbohydrate grams to treat a low sugar (3-4 glucose tablets, half a glass of juice or 15 carbohydrate grams of soft candy such as gummie snacks). Recheck your sugar in 15 minutes and re-treat again with 15 carbohydrate grams if low or still with symptoms. Do not drive a car or operate machinery if you do not know what your blood sugar is, if it is low or in excess of 300. Symptoms of DKA (diabetic ketoacidosis): early: frequent urination, dry mouth, fatigue, feeling ill, severe symptoms: ketones in the urine, abdominal pain, nausea, vomiting and weakness. It is important to hydrate with sugar free liquids every 15-30 minutes and bring the sugars down to normal levels. If you are moderate or severe with ketones or unable to bring glucose to less than 200, go to the emergency room. Troubleshooting after starting new pod or inserting new insulin set: Occlusion, adhesive tape sensitivity, redness Check BG 2 hours after site change Safety information: Importance of a backup plan, for manual injections, proper prescriptions and emergency supplies ketone strips, and rules for testing for ketones. Check your feet daily looking for any signs of infection, drainage, redness, ulceration and seek medical attention if this occurs. Break in shoes gradually and do not wear open-toed shoes or walk stocking footed or barefooted. The patient was counseled to achieve a target A1C of 7% (154 avg). Fasting blood sugars should be 90-130 in the morning and less than 180 two hours after meals. Reviewed the relationship between poor diabetic control and the development of complications. 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
[2024-10-12 12:35] VITALS: BP 180/100; PULSE 96; BMI 40.7
[2024-10-12 12:45] LABS: Glucose, Whole Blood 104 mg/dL (60-115)
== END 2024-10-12 13:49 | disposition home or self-care (01) ==
PROVIDERS: PCP Internal Medicine; Visit Provider Nurse Practitioner Adult Health
DX: E13.9 Other specified diabetes mellitus without complications (principal); S36.209S Unspecified injury of unspecified part of pancreas, sequela
CPT/HCPCS: 95251; 99215; G2211

== ENCOUNTER → 2024-10-12 12:02 | Outpatient (BNVA) | payer MEDICARE, SELFPAY | PROVIDERS: PCP Internal Medicine; Visit Provider Nurse Practitioner Adult Health | DX: E13.69 Other specified diabetes mellitus with other specified complication (principal); S36.209S Unspecified injury of unspecified part of pancreas, sequela; Z79.4 Long term (current) use of insulin; Z96.41 Presence of insulin pump (external) (internal) | CPT/HCPCS: 82947; 83036; 99212 ==

== ENCOUNTER 2024-11-06 09:21 | Outpatient (REF) | payer MEDICARE, SELFPAY ==
--- NOTE | ~2024-11-06 | XR_ITS ---
EXAMINATION: XR CHEST 2 VIEWS HISTORY: Asthma COMPARISON: Comparison is made with the prior examination dated 12/05/2021. FINDINGS: PA and lateral views of the chest are submitted. The lungs are expanded and clear. There is no pleural effusion, pneumothorax, or pulmonary vascular congestion. The heart is normal in size. There is mild degenerative disc disease of the spine. XR/XR chest 2V IMPRESSION: No acute cardiopulmonary abnormality. Electronically signed by: Brandon Parra MD 11/06/2024 03:57 PM EDT
--- OUTSIDE RECORDS SUMMARY | 2024-11-06 10:02 | XMS_ITS ---
Author Organization Ilir Hodge MD Address [address] [place] [phone] Care Team Providers Care Concrete Panel Installer Name Role Phone Ilir Hodge Primary Care Provider [phone] Allergies Allergen (clinical drug ingredient) Drug/Non Drug Allergy documented on EMR Reaction Allergy Type Onset Date Status dulaglutide Trulicity pancreatitis Drug Allergy Ac tive Penicillin G Benzathine hives Drug Allergy Active sulfamethoxazole / trimethoprim Bactrim low platelets Drug Allergy Active Results Component Value Reference Range Notes Hemoglobin A1c Reviewed date:11/06/2024 09:04:49 AM Interpretation: Performing Lab: Notes/Report: Hemoglobin A1c 8.9 Glucose, finger stick Reviewed date:11/06/2024 09:00:09 AM Interpretation: Performing Lab: Notes/Report: Value 90 REASON FOR VISIT 2 MO F/U c/o cough x 4 weeks Medications Medication SIG (Take, Route, Frequency, Duration) Notes Start Date End Date Status HumaLOG KwikPen 100 UNIT/ML 60 units Subcutaneous Active Albuterol Sulfate HFA 108 (90 Base) MCG/ACT 2 puffs as needed Inhalation every 4 hrs for 30 days Active Paxlovid (300/100) 20 x 150 MG & 10 x 100MG 2 tabs of nirm and 1 tab sukhjinder Orally twice for 5 days 05/15/2022 Not-Taking predniSONE 10 MG 1 tablet with food o r milk Orally 4 tabs for 3 days,3tabs for 3 days, 2 tabs for 3 days, and 1 tab for 3 days for 14 days 11/06/2024 Active Vitamin D3 50 MCG (1999 UT) 1 capsule Orally Once a day for 30 day(s) 01/01/2022 Not-Taking amLODIPine Besylate 10 MG 1 tablet Orally Once a day for 90 days 10/24/2019 Active Rosuvastatin Calcium 40 MG 1 tablet Orally Once a day Active Lisinopril-hydroCHLOROth iazide 20-12.5 MG take 2 tablet by mouth once daily for 90 days Orally Once a day Active Sertraline HCl 100MG take 1 tablet by fl ut once daily for 90 days Orally Once a day for 90 days Active Vitamin D3 125 MCG (5000 UT) 1 tablet Orally Once a day 11/05/2017 Active Aspir-Low 81 MG 1 tablet Orally Once a day for 30 day(s) Active Valtrex 1 GM 1 tablet Orally 3 ti mes a day for 7 days 12/17/2020 Not-Taking Clobetasol Propionate 0.05 % 1 application Externally Twice a day for 10 day(s) 03/10/2021 Active Ibuprofen 800 MG 1 tablet with food o r milk as needed Orally Three times a day 09/01/2019 Not-Taking Vital Signs Blood pressure systolic 132 mm Hg 11/07/19 25 Blood pressure diastolic 78 mm Hg 025 Height 64 in 11/06/2024 Weight 231 lbs 11/06/2024 BMI 39.65 kg/m2 11/06/2024 weight is up 2 pounds since 09-07-24 Encounters Encounter Location Date Provider Diagnosis Ilir Hodge MD [address] [place] [address] [place] [phone] 11/06/2024 Ilirana Hodge Type 2 diabetes mellitus without complications E11.9 and Mild intermittent asthma, uncomplicated J45.20 Assessments Encounter Date Diagnosis (ICD Code) Assessment Notes Treatment Notes Treatment Clinical Notes Section Notes 11/06/2024 Type 2 diabetes mellitus without complications (ICD-10 - E11.9) order given to patient/ is aware that the prednisone will effect her sugars but hopefully the pump will make the necessary adjustments, will conointue current regiment but will also monitor blood sugars 11/06/2024 Mild intermittent asthma, uncomplicated (ICD-10 - J45.20) patient verbalized understanding of medication and directions for use Plan Of Treatment Medication Medication Name Sig Start Date Stop Date Notes Albuterol Sulfate HFA 108 (9 0 Base) MCG/ACT 2 puffs as needed Inhalation every 4 hrs for 30 days predniSONE 10 MG 1 tablet with food o r milk Orally 4 tabs for 3 days,3tabs for 3 days, 2 tabs for 3 days, and 1 tab for 3 days for 14 days 11/06/2024 Treatment Notes Assessment Notes Type 2 diabetes mellitus wit hout complications order given to patient/ is aware that th e prednisone will effect her sugars but hopefully the pump will make the necessary adjustments, will conointue current regiment but will also monitor blood sugars Mild intermittent asthma, uncomplicated patient verbalized understanding of medication and directions for use Pending Test Test Name Order Date XR CHEST 2 VIEW PA & LAT 11/06/2024 Next Appt Details Follow Up: 1 Week, Reason: Provider Name:Ilir alford, 11/13/2024 08:15:00 AM, [address] [place] [address], [address] [place] [address], [phone], Provider Name:Ilir alford, 01/08/2025 07:30:00 AM, [address] [place] [address], [address] [place] [address], [phone], Provider Name:Ilir alford, 01/15/2025 09:30:00 AM, [address] [place] [address], [address] [place] [address], [phone], Progress Notes * SAVANNAH SIFUENTES EDOB: [birth year] (64 yo F)Acc No.[id number]:11/06/2024 Progress Notes Patient:SAVANNAH RODNEY Provider:?Ilir Hodge MD :1960???Age:64 Y???Sex:Female D ate:11/06/2024 Address:[address] [place], [place] [id number] Subjective: * Chief Complaints: * ???1. 2 MO F/U c/o cough x 4 weeks. * HPI: ???Symptom(s):?patient is a 64 yo female here for 2 month follow up visit, also complaining has cough for 4 weeks / ever since she had the flu. hears wheezing at night. * ROS:?General/Constitutional:?Denies?Chills.?Denies?Fatigue.?Denies?Fever.?Denies?Headache.?ENT:?Patient denies?decreased sense of smell, any loss of taste, sore throat.?Denies?Sore throat.?Endocrine:?Denies?Difficulty sleeping.?Denies?Dizziness.?Denies?Excessive sweating.?Denies?Excessive thirst.?Admits?Frequent urination.?Respiratory:?Admits?Cough.?Denies?Shortness of breath at rest.?Denies?Shortness of breath with exertion.?Denies?Sputum production.?Admits?Wheezing.?Gastrointestinal:?Denies?Diarrhea.?Denies?Nausea.?Musculoskeletal:?Patient denies?muscle aches.?Peripheral Vascular:?Patient denies?red and blue toes.? * Medical History:?colonoscopy 2010 due in 5 years; colonoscopy 04/13/[address] Georgina Philippe in 2027. * Medications:?Taking Aspir-Lo w 81 MG Tablet Delayed Release 1 tablet Orally Once a day , Taking Clobetasol Propionate 0.05 % Cream 1 application Externally Twice a day , Taking Albuterol Sulfate HFA 108 (90 Base) MCG/ACT Aerosol Solution 2 puffs as needed Inhalation every 4 hrs , Taking Sertraline HCl 100MG Tablet take 1 tablet by mouth once daily for 90 days Orally Once a day , Taking Vitamin D3 125 MCG (5000 UT) Capsule 1 tablet Orally Once a day , Taking Rosuvastatin Calcium 40 MG Tablet 1 tablet Orally Once a day , Taking Lisinopril-hydroCHLOROthiazide 20-12.5 MG Tablet take 2 tablet by mouth once daily for 90 days Orally Once a day , Taking amLODIPine Besylate 10 MG Tablet 1 tablet Orally Once a day , Taking HumaLOG KwikPen 100 UNIT/ML Solution Pen-injector 60 units Subcutaneous , Not-Taking/PRN Paxlovid (300/100) 20 x 150 MG & 10 x 100MG Tablet Therapy Pack 2 tabs of nirm and 1 tab sukhjinder Orally twice , Not-Taking/PRN Vitamin D3 50 MCG (2000 UT) Capsule 1 capsule Orally Once a day , Not-Taking/PRN Valtrex 1 GM Tablet 1 tablet Orally 3 times a day , Not- Taking/PRN Ibuprofen 800 MG Tablet 1 tablet with food or milk as needed Orally Three times a day , Medication List reviewed and reconciled with the patient * Allergies:?Bactrim: low plat elets, Penicillin G Benzathine: hives, Trulicity: pancreatitis. Objective: * Vitals:?Ht: 64, Wt: 231, BMI :39.65, BP:132/78, Wt-k.78. weight is up 2 pounds since 09-07-24. * Examination: ???General Examination: ?GENERAL APPEARANCE:?patient unable to stop coughing.?SKIN:?good turgor.?LUNGS:?no wheezes, rales, rhonchi, good air movement, clear to auscultation bilaterally, abnormal with repetive coughing.? Assessment: * Assessment: 1.?Type 2 diabetes mellitus without complications - E11.9 (Primary)???2.?Mild intermittent asthma, uncomplicated - J45.20??? Plan: * Treatment: ? Value Reference Range ?Hemoglobin A1c 8.9 ?LAB: Glucose, finger stick (Collection Date & Time - 11/06/2024)* ? Value Reference Range ?Value 90 Notes: order given to patient/ is aware that the prednisone will effect her sugars but hopefully the pump will make the necessary adjustments, will conointue current regiment but will also monitor blood sugars??2.?Mild intermittent asthma, uncomplicated? Start predniSONE Tablet, 10 MG, 1 tablet with food or milk, Orally, 4 tabs for 3 days,3tabs for 3 days, 2 tabs for 3 days, and 1 tab for 3 days, 14 days, 30, Refills 0;?Refill Albuterol Sulfate HFA Aerosol Solution, 108 (90 Base) MCG/ACT, 2 puffs as needed, Inhalation, every 4 hrs, 30 days, 1,Refills 3.?Imaging: XR CHEST 2 VIEW PA & LAT Notes: patient verbalized understanding of medication and directions for use?? * Procedure Codes:?75046 ASSAY , GLUCOSE, BLOOD QUANT, Modifiers: QW , 51822 GLYCATED HEMOGLOBIN TEST, Modifiers: QW * Follow Up:?1 Week * * The named appointment provid er may or may not be the originator of this progress note, and it is not deemed complete until electronically signed by the appointment provider. Sign off status: Pending * Provider:?Ilir Hodge MD Date:?0 11/06/2024 Generated for Valentin medina/Alexia/Majorsmitting on:?11/06/2024 10:02 AM EDT History and Physical Notes * HPI (History of Present Illness) Category Sub-Category Detail Notes Category Not es Symptom(s) patient is a 64 yo female here for 2 month follow up visit, also complaining has cough for 4 weeks / ever since she had the flu. hears wheezing at night Examination Category Sub-Category Detail Notes Category Not es General Examination GENERAL APPEARANCE: patient unable to stop coughing LUNGS: no wheezes, rales, r honchi, good air movement, clear to auscultation bilaterally, abnormal with repetive coughing SKIN: good turgor
--- OUTSIDE RECORDS SUMMARY | 2024-11-06 10:02 | XMS_ITS ---
Author Organization Ilir Hodge MD Address [address] [place] [phone] Care Team Providers Care Aquaculture Worker Name Role Phone Ilir Hodge Primary Care [...] AM EST > info faxed to the [facility] office [phone] they will call patient with an appt, [...] Location Date Provider Diagnosis Ilir Hodge MD [address] [place] [address] [place] [phone] 08/25/2024 Ilir Hodge Type 2 diabetes mellitus [...] Up: 2 Weeks, Reason: Provider Name:Ilir alford, 11/13/2024 08:15:00 AM, [address] [place] [address], Suite [facility], [place], [place], [phone], Provider Name:Ilir alford, 01/08/2025 07:30:00 AM, [address] [place] [address], [address] [place] [address], [phone], Provider Name:Ilir alford, 01/15/2025 09:30:00 AM, [address] [place] [address], [place] [address], [place], [place], [phone], Progress Notes * SAVANNAH SIFUENTES EDOB: (64 yo F)Acc No.[id number]:08/25/2024 Progress Notes Patient:?SAVANNAH SIFUENTES Provider:?Ilir Hodge MD :1960???Age:64 Y???Sex:Female D ate:08/25/2024 Address:[address] [place], [place] [address] Subjective: * Chief Complaints: * ???1 weekBlood [...] MD Date:?1 10/26/2023 Generated for Valentin medina/Alexia/eTyunielsmitting on:?11/06/2024 10:02 AM EDT History and Physical [...]
== END 2024-11-06 09:22 | disposition home or self-care (01) ==
LOC: HO.XRAY 09:21
PROVIDERS: PCP Internal Medicine; Visit Provider Internal Medicine
DX: J45.20 Mild intermittent asthma, uncomplicated (principal)
CPT/HCPCS: 71046

== ENCOUNTER → 2024-11-06 09:30 | Outpatient (BNV) | payer MEDICARE, SELFPAY | PROVIDERS: PCP Internal Medicine; Visit Provider Radiology Diagnostic Radiology | DX: J45.909 Unspecified asthma, uncomplicated (principal) | CPT/HCPCS: 71046 ==

== ENCOUNTER 2024-11-16 09:17 | Outpatient (AMB) | payer MEDICARE, SELFPAY ==
--- NOTE | 2024-11-16 07:40 | A.OFFVIS_ITS ---
Vital Signs 11/16/24 09:19 11/16/24 09:56 11/16/24 09:57 Height 5 ft 3.5 in Weight 233 lb 12.4 oz BMI 40.8 BP 218/105 H 182/82 H 182/84 H Blood Pressure Location Rt brachial Lt brachial Rt brachial Position Sitting Sitting Sitting Pulse 93 Pulse Source Pulse Oximeter Pulse Oximetry (%) 96 Oxygen Delivery Method Room Air Intake Visit Reasons: 4 wk f/u DM Intake Note: Patient presents today for a follow-up on Type 2 Diabetes Mellitus: Last Diabetic eye exam was on: Within the year Last Podiatry exam was on: Patient does not see a Tile Layer Supervisor Most recent HbA1c: 10.5%, 10/12/2024 Random Glucose : 53 mg/dL, Critical Low 09:23 AM RE-CHECKED Random Glucose: 93 mg/dL 09:44 AM Set Off Blocker Required: No Accompanied by: Self / Same As Patient Allergies Penicillins [PENICILLINS] Allergy (Severe, Verified 11/16/24 09:19) RASH Sulfa (Sulfonamide Antibiotics) [SULFA (SULFONAMIDE ANTIBIOTICS)] Allergy (Severe, Verified 11/16/24 09:19) THROMBOCYTOPENIA, severe penicillin V Allergy (Unknown, Verified 11/16/24 09:19) rash HPI Comments Details: Patient is 64 yo female with insulin deficent DM diagnosed about 30 years ago who presents for management of diabetes. She was last seen 10/12/24. Hgb A1C 10/12/24 10.5%, up from previous 7.6%. She is on an islet pump and had been doing well since her last visit with [facility]. At her last of her last visit she was not announcing all of her meals to the pump which is required in order to have good glycemic control. The current 2 week download shows that she is entering her meals more consistently C-peptide 2021 0.26 negative esau D and negative islet cell antibody Today on arrival to the clinic she is 53 in his treated with 3 glucose tablets totaling 15 carbohydrate g. Glucose alireza to 93 Total daily dose of insulin: 105.3 Basal 49.2 Breakfast 12.2 Lunch 20.2 Supper 11.6 Over the past 14 days she has announced 12 breakfast is, 10 lunches at 11 dinners average meal announce spent per day 2.5 as usual meals Dexcom average glucose: 162.2 14 day continuous glucose monitor report reviewed Glucose Managment indicator 7.2 % Days with CGM data 92.2 % TIme in ranges: 10.4 % very high (above 250) 21.1 % high ?(181-250) 66.4 % in range ?(70-180] 1.7 % low (69-55) 0.4 % ?very low (below 54) 66.6 Standard Deviation Interpretation [patient is having postprandial highs after lunch, during this 2 week timeframe she announce 10 lunch meals ] Retinopathy: last eye exam Deniies neuropathy: Symptoms reported: denies numbness, tingling, cramping in lower extremities Has nephropathy: 08/14/2024 eGFR>60 07/03/24 462 Has HLD on statin and Zetia with most recent LDL 128 2021 Denies dyspnea, chest pain or symptoms of claudication Has hives appointment with physical laboratory assistant was cancelled by provider She has an appointment with the lens shaper grinder. She is currently on prednisone daily which has increased her insulin requirements which the pump has been able to accommodate. She notes that she feels like her cough initially started after an increase in her lisinopril and it was a dry cough. The cough worsened after she had a flu-like illness. Exercise: Walks dogs for 1/2 hour on most days. 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 HLD (hyperlipidemia) Hypertension Asthma Nephrolithiasis Diabetes Surgical History History of knee replacement Family History Family/Other No known health problems Social History Household Members: Spouse Housing: House Do you presently have visiting nurse or other home services: No Alcohol intake: never Patient Tobacco Use Status: Current everyday Tobacco user service: No Current occupational status: disabled Physical Exam Vital Signs: Last Vital Signs Pulse 93 11/16/24 09:19 BP 218/105 H 11/16/24 09:19 Pulse Ox 96 11/16/24 09:19 Oxygen Delivery Method Room Air 11/16/24 09:19 BMI result Body Mass Index 40.8 Const Other: Absence of Cushingoid features. Absence of acromegalic features. Neck exam reveals nl size thyroid about 15 gms. No thyroid nodules palpable. Lungs CTA. No areas of diminished lung sounds, wheeze or rales. Heart S1 S2, Reg R/R. No M/R G. Skin exam reveals absence of vitiligo or acanthosis nigricans. No edema Visual exam of foot performed. No ulcerations or open lesions. No inter digit maceration or fissuring. No onychomycosis, no callouses. Sensation intact to monofilament exam. Vibratory sensation is normal with 128 Hz tuning fork. 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 She is doing much better and her current GME my is 7.2%. She was encouraged to notes lunch meals. If her meals are less than 20 carbs for breakfast when she tends to have some lows she can announce as a less than usual meal. Patient was counseled that if she did not have an active sensor paired to the pump that she would need to test her glucose every 4 hours in order for the pump to keep operating. The patient had an opportunity to ask questions regarding treatment plan. The patient expressed understanding and agreement with the above treatment plan. The patient is aware they should contact our office by phone for worsening glucose readings or for any low blood sugars which may warrant a change in diabetes medication. Compliance is encouraged with medications and any followup testing/consults which may have been ordered. (2) Hypertension: Code(s): I10 - Essential (primary) hypertension Category: Medical Plan: The patient has normal renal function with proteinuria over the past 4 years. She does report that she had several relatives that did not have diabetes that had kidney disease. I recommend that she see a care program director but she is hesitant at this point in time as she we will be seeing both an physical laboratory assistant for hives and lens shaper grinder for cough. She reports she did develop a dry cough prior to having a flu-like illness in some consideration could be made to switching her to an Arb instead of the an Santos inhibitor. I will work load message her PCP concerning this. She made need additional medication for blood pressure control in would recommend no beta blockers as this may mask her hypoglycemia and worsen her cough. She has agreed to reconsider seeing a care program director at her follow up visit in 3 months. I did advise her that there are some hereditary syndromes that can contribute to chronic kidney disease outside of diabetes and that it might be worth her while to see a specialist in this area. Orders: Orders AMB Glucose Monitoring Today I10 - Essential (primary) hypertension Patient Instructions: Symptoms of DKA (diabetic ketoacidosis): early: frequent urination, dry mouth, fatigue, feeling ill, severe symptoms: ketones in the urine, abdominal pain, nausea, vomiting and weakness. It is important to hydrate with sugar free liquids every 15-30 minutes and bring the sugars down to normal levels. If you are moderate or severe with ketones or unable to bring glucose to less than 200, go to the emergency room. Troubleshooting after starting new pod or inserting new insulin set: Occlusion, adhesive tape sensitivity, redness Check BG 2 hours after site change Safety information: Importance of a backup plan, for manual injections, proper prescriptions and emergency supplies ketone strips, and rules for testing for ketones. Take 15 carb carbohydrate grams to treat a low sugar (3-4 glucose tablets, half a glass of juice or 15 carbohydrate grams of soft candy such as gummie snacks). Recheck your sugar in 15 minutes and re-treat again with 15 carbohydrate grams if low or still with symptoms. Do not drive a car or operate machinery if you do not know what your blood sugar is, if it is low or in excess of 300. If she finds her glucoses rising too much after a 15 carb treatment, the islet protocol does indicate that she could start with last such as 10 carbohydrate g Check your feet daily looking for any signs of infection, drainage, redness, ulceration and seek medical attention if this occurs. Break in shoes gradually and do not wear open-toed shoes or walk stocking footed or barefooted. 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
[2024-11-16 09:19] VITALS: BP 218/105; PULSE 93; O2SAT 96; BMI 40.8
[2024-11-16 09:34] LABS: Glucose, Whole Blood 53 mg/dL (60-115)
[2024-11-16 09:47] LABS: Glucose, Whole Blood 93 mg/dL (60-115)
[2024-11-16 09:56] VITALS: BP 182/82
[2024-11-16 09:57] VITALS: BP 182/84
== END 2024-11-16 09:55 | disposition home or self-care (01) ==
LOC: HO.ENCR 09:18
PROVIDERS: PCP Internal Medicine; Visit Provider Nurse Practitioner Adult Health
DX: E13.9 Other specified diabetes mellitus without complications (principal); S36.209S Unspecified injury of unspecified part of pancreas, sequela; I10 Essential (primary) hypertension
CPT/HCPCS: 95251; 99215; G2211

== ENCOUNTER → 2024-11-16 09:17 | Outpatient (BNVA) | payer MEDICARE, SELFPAY | PROVIDERS: PCP Internal Medicine; Visit Provider Nurse Practitioner Adult Health | DX: E13.9 Other specified diabetes mellitus without complications (principal); I10 Essential (primary) hypertension; S36.209S Unspecified injury of unspecified part of pancreas, sequela; X58.XXXS Exposure to other specified factors, sequela | CPT/HCPCS: 82947; 99212 ==

== ENCOUNTER 2024-12-13 09:11 | Outpatient (AMB) | payer MEDICARE, SELFPAY ==
--- NOTE | 2024-12-13 09:14 | MHC.OFFVIS ---
Vital Signs 12/13/24 09:17 Height 5 ft 3.5 in Weight 234 lb BMI 40.8 BP 160/80 H Blood Pressure Location Rt brachial Position Sitting Pulse 98 Pulse Source Pulse Oximeter Pulse Oximetry (%) 98 Oxygen Delivery Method Room Air Intake Visit Reasons: bronchitis Net Lead Architect Required: No Assistant Cook: Assistant Cook offered & declined Accompanied by: Self / Same As Patient Allergies Penicillins [PENICILLINS] Allergy (Severe, Verified 12/13/24 09:24) RASH Sulfa (Sulfonamide Antibiotics) [SULFA (SULFONAMIDE ANTIBIOTICS)] Allergy (Severe, Verified 12/13/24 09:24) THROMBOCYTOPENIA, severe penicillin V Allergy (Unknown, Verified 12/13/24 09:24) rash Medication List - Last Reconciled 12/13/24 by Kelli Galeana LPN acetone (urine) test (Ketostix strips) As directed albuterol sulfate 90 mcg/actuation 2 puffs inhalation Q4H PRN amlodipine 1 tab PO DAILY blood sugar diagnostic (Contour Next Test Strips) As directed blood-glucose meter (Contour Next Meter) As directed blood-glucose sensor (DexPrepair G7 Sensor device) As directed every ten days ezetimibe (Zetia) 10 mg PO DAILY glucagon 3 mg/actuation (Baqsimi) 3 mg intranasal ONCE 30 days Humalog KwikPen Insulin (insulin lispro) 10 - 22 units (0.1 - 0.22 mL) subcut TID 25 days NS insulin glargine (Lantus Solostar U-100 Insulin) 26 units (0.26 mL) subcut QPM insulin lispro (Humalog U-100 Insulin) Infuse up to 110 units per day by insulin pump subcutaneously; insulin lispro (Humalog U-100 Insulin) infuse up to 110 units via insulin pump subcutaneously; insulin pump cart,auto,BT-cntr (Omnipod 5 G6 Intro Kit (Gen 5) subcutaneous cartridge with controller) As directed insulin pump cart,auto,BT-cntr (Omnipod 5 G6 Intro Kit (Gen 5) subcutaneous cartridge with controller) As directed lisinopril-hydrochlorothiazide 20-25 mg 1 tab PO BID 90 days pen needle, diabetic (BD Ultra-Fine Tammy Pen Needle) As directed four times a day pen needle, diabetic (BD Ultra-Fine Mini Pen Needle) As directed 4 times a day pen needle, diabetic (BD Ultra-Fine Tammy Pen Needle) As directed five times a day rosuvastatin 40 mg PO DAILY sertraline 1 tab PO DAILY HPI HPI bronchitis: Details: Radha is a pleasant 64 year old female, never smoker, with underlying DMII h/o DKA, HTN and HLD. She was referred by PCP for pulmonary evaluation for chronic cough. She reports bronchitic symptoms started about 4 months ago without associated chest congestion, fevers, chills or sick contacts. She does report some time in September she was +flu. She was treated with prednisone on 11/06 and placed on azithromycin on 11/13. She reports prior short course of prednisone prior, none have provided significant improvement. She was also prescribed Symbicort/Breyna for several weeks, for possible underlying asthma, however no improvement. She continues with harsh dry hacking cough with associated wheezing in supine position and endorses dyspnea only after prolonged coughing. She reports prolonged talking worsens cough otherwise no known triggers. She also notes new onset of idiopathic urticaria since February, thought to be related to the metal needle used for her insulin pump which was switched to plasitc however minimal change in intermittent hives. She also reports lip swelling two days ago, provided picture, with unknown trigger that resolved with Nury. She had an appt with allergy however had to be canceled due to provider schedule with no return call to reschedule. She has been using prednisone off and on for this as well as OTC antihistamines with moderate effect. She denies prior h/o asthma although reports recurrent URI in the past and second hand smoke exposure as a child. She endorses seasonal allergies, has a cat and multiple dogs at home. No carpeting and using air purifier in home. Denies recent allergy testing. 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 She reports mother, smoker, with h/o lung cancer otherwise denies any pertinent family history. 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 HLD (hyperlipidemia) Hypertension Asthma Nephrolithiasis Diabetes Surgical History History of knee replacement Family History Family/Other No known health problems Social History (Updated 12/13/24 @ 09:29 by Kelli Galeana LPN) Household Members: Spouse Housing: House Do you presently have visiting nurse or other home services: No Alcohol intake: never Patient Tobacco Use Status: Never used Tobacco service: No Current occupational status: disabled Review of Systems Const Denies chills, Denies excessive sweating, Denies fever(s), Denies headache(s) and Denies night sweats Eyes Denies dry eyes, Denies irritation and Denies itchy eyes ENT Reports Normal hearing present, Denies headache(s), Denies nasal congestion, Denies nasal discharge, Denies post nasal drip and Denies sore throat Card Denies chest pain, Denies chest pain at rest, Denies chest pain with activity, Denies claudication, Denies leg edema, Denies orthopnea and Denies paroxysmal nocturnal dyspnea Resp Denies chest congestion, Denies excessive phlegm production, Denies pain on inspiration, Denies pain with cough and Denies stridor Musc Denies myalgias Neuro Reports Normal hearing present and Denies headache(s) Endo Denies excessive sweating Wero/Lymph Denies lymphadenopathy Aller/Immun Denies itchy eyes and Denies seasonal rhinorrhea Physical Exam Vital Signs: Last Vital Signs Pulse 98 12/13/24 09:17 BP 160/80 H 12/13/24 09:17 Pulse Ox 98 12/13/24 09:17 Oxygen Delivery Method Room Air 12/13/24 09:17 BMI result Body Mass Index 40.8 Const General: cooperative, healthy appearing, comfortable, no acute distress, well developed and alert Nutritional Appearance: obese Orientation/consciousness: patient oriented x3 Limitations: no limitations HEENT Head: Yes normal to inspection, Yes normocephalic and Yes atraumatic Ears: hearing grossly normal bilaterally and external ears normal Eyes General: appearance normal, both eyes and all related structures Eyelids: Yes eyelids normal Sclerae: sclerae normal EOM: EOMs intact bilaterally Neck Neck: Yes normal visual inspection and Yes no lymphadenopathy Lymphatic: no lymphadenopathy noted Chest Chest palpation & inspection: normal inspection of the chest Resp Other: persistent dry cough throughout visit, increasing during respiratory exam with postexhalation cough, faint inspiratory LLL crackles Effort & Inspection: normal respiratory effort, able to speak in complete sentences, no audible wheezes, Actively coughing, no stridor, not tachypneic, no tripod positioning and no use of accessory muscles Cardio Jugular venous distension: no JVD Rate: regular rate Rhythm: regular rhythm Skin Other: warm, dry General skin exam: no rashes or lesions noted Neuro General: patient oriented x3 Cranial nerves: Yes Normal hearing present Cognition (Neuro): normal cognition Gait exam (Neuro): Normal gait present Extrem General: Yes normal to inspection, Yes capillary refill normal, Yes no clubbing, cyanosis or edema and Yes no pedal edema Psych Appearance: grossly normal and well kempt Speech and movement: Normal speech and movement present and Clear speech present Affect: normal affect Attitude: cooperative Thought process: Normal thought process present Thought content: Normal thought content present Insight: Good insight present (Psych) Judgement: Good judgement present (Psych) Results Reviewed Results Reviewed: [address] [address] XRay Report Signed Patient: Radha Piña MR#: [id number] : 1960 Acct:[id number] Age/Sex: 64 / F ADM Date: 11/06/24 Loc: [facility] Attending Dr: Ilir Hodge MD Ordering Physician: Ilir Hodge MD Date of Service: 11/06/24 Procedure(s): XR chest 2V Accession Number(s): [id number] cc: Ilir Hodge MD~ EXAMINATION: XR CHEST 2 VIEWS HISTORY: Asthma COMPARISON: Comparison is made with the prior examination dated 12/05/2021. FINDINGS: PA and lateral views of the chest are submitted. The lungs are expanded and clear. There is no pleural effusion, pneumothorax, or pulmonary vascular congestion. The heart is normal in size. There is mild degenerative disc disease of the spine. XR/XR chest 2V IMPRESSION: No acute cardiopulmonary abnormality. Electronically signed by: Brandon Parra MD 11/06/2024 03:57 PM EDT Dictated By: Brandon Parra MD Signed By: <Electronically signed by Brandon Parra MD in OV> 11/06/24 1557 DD/ 9 TD/TT: 11/06/24937 Director Of Group Counseling Program: Assessment & Plan Assessment & Plan (1) Asthma: Code(s): J45.909 - Unspecified asthma, uncomplicated Category: Medical (2) Chronic cough: Code(s): R05.3 - Chronic cough Category: Medical (3) Environmental allergies: Code(s): Z91.09 - Other allergy status, other than to drugs and biological substances Category: Medical (4) Idiopathic urticaria: Code(s): L50.1 - Idiopathic urticaria Category: Medical Plan Radha presents with chronic dry hacking persistent cough since August that has been minimally responsive to prior treatment. Reviewed CT chest which report states unremarkable however note of evolving inflammatory/infectious process in the RLL. Will treat with vantin and prednisone as well as cough syrup with codeine. Reviewed sedating effects. She reports possible environmental factors contributing to symptoms, will send for RAST. She also reports ongoing idiopathic urticaria and angioedema of face, will enter referral to Dr. Cast. Will consider PFT in the future, unlikely she would be able to complete with symptoms, clinical symptoms suggestive of asthma. All questions were answered and patient is in agreement of plan. Will follow up in 4 weeks or sooner if needed. Orders: Orders Complete Blood Count Auto Diff Today Z91.09 - Other allergy status, other than to drugs and biological substances Resp Allergy Profile Region I Today Z91.09 - Other allergy status, other than to drugs and biological substances Immunoglobulin E Today Z91.09 - Other allergy status, other than to drugs and biological substances Medications: New prednisone see taper instructions; 40 mg Daily x3 days, 30 mg daily x3 days, 20 mg daily x3 days, 10 mg daily x3 days 10 mg PO DIRECTED 30 tabs 0RF codeine-guaifenesin 10-100 mg/5 mL 10 mL Q6 hours (maximum: 60 mL per 24 hours) 10 mL PO Q6H PRN 200 mL 0RF cough cefpodoxime must administer with a meal/food 200 mg PO BID 20 tabs 0RF Coding Level of Care Code New Pt Level 4 (87863) Diagnoses Asthma J45.909 Chronic cough R05.3 Environmental allergies Z91.09 Idiopathic urticaria L50.1
[2024-12-13 09:17] VITALS: BP 160/80; PULSE 98; O2SAT 98; BMI 40.8
--- OUTSIDE RECORDS SUMMARY | 2024-12-13 09:59 | XMS_ITS | Patient Health Record ---
Author Organization Ilir Hodge MD Address [address] [place] [phone] Care Team Providers Care Documentation Clerk Name Role Phone Ilir Hodge Primary Care [...] Interpretation: Performing Lab: Notes/Report: Hemoglobin A1c 8.9 Complete Blood Count Auto Di ff Reviewed date:01/04/2024 12:36:25 PM Interpretation: Performing Lab:[facility], [address] [place] [phone] Notes/Report: White Blood Count 5.9 4.8-10.8 X10*3/uL Red Blood Count 5.27 4.20-5.50 X10*6/uL Hemoglobin 15.2 12.0-16.0 g/dl Hematocrit 46.9 37.0-47.0 % Mean Corpuscular Volume 89.0 80.0-98.0 fL Mean Corpuscular Hemoglobin 28.8 27.0-33.0 pg Mean Corpuscular HGB Conc 32.4 31.0-35.0 g/dl Red Cell Distribution Width 12.6 11.0-16.0 % Platelet Count 314 160-400 X10*3/uL Mean Platelet Volume 11.1 9.4-12.3 fL Neutrophils Percent Auto 59.8 45-73 % Imm Gran Pct Auto 0.3 0.0-0.4 % Lymphocytes Percent Auto 31.3 20-40 % Monocytes Percent Auto 5.4 2-11 % Eosinophils Percent Auto 2.5 0-4 % Basophils Percent Auto 0.7 0-2 % NRBC Pct Auto 0.0 0.0-0.2 /100WBC Neutrophils Absolute Auto 3.6 2.0-8.3 x10*3/uL Imm Gran Abs Auto 0.02 0.00-0.03 X10*3/uL Lymphocytes Absolute Auto 1.9 1.2-4.9 X10*3/uL Monocytes Absolute Auto 0.3 0.1-1.2 X10*3/uL Eosinophils Absolute Auto 0.2 0.0-0.4 X10*3/uL Basophils Absolute Auto 0.0 0.0-0.2 X10*3/uL NRBC Abs Auto 0.000 0.0-0.012 X10*3/uL Comprehensive [place]. Panel Fa st Reviewed date:01/04/2024 06:40:20 PM Interpretation: Performing Lab:[facility], [address] [place] [phone] Notes/Report: Sodium 142 135-145 mmol/L Potassium 4.2 3.3-5.1 mmol/L Chloride 104 96-108 mmol/L Carbon Dioxide 28 22-29 mmol/L Anion Gap 14 12-20 Blood Urea Nitrogen 19 9-16 mg/dL Creatinine 0.76 0.5-1.4 mg/dL Estimated Glomerular Filt Rate > 60 NOTE: For [place] individuals, multiply the result by 1.210. Chronic Kidney Disease: Estimated GFR < 60 mL/min/1.73m2 Severe Kidney Disease: Estimated GFR < 15 mL/min/1.73m2 Glucose Fasting 128 60-99 mg/dL A fasting glucose of 126 mg/dl or greater on more than one occasion is considered diagnostic of diabetes. Calcium 9.6 8.4-10.2 mg/dL Bilirubin Total 1.2 0.0-1.0 mg/dL Aspartate Amino Transferase 28 5-31 U/L Alanine Aminotransferase 20 0-31 U/L Total Protein 6.7 6.5-8.0 g/dL Albumin Level 3.8 3.5-5.0 g/dL Alkaline Phosphatase 97 39-117 U/L Lipid Panel Reviewed date:01/04/2024 12:35:29 PM Interpretation: Performing Lab:[address] [phone] Notes/Report: Triglycerides 109 <150 mg/dL Desirable Triglyceride: less than 150 mg/dL Borderline High Triglyceride 150-199 mg/dL High Triglyceride: 200-499 mg/dL Very High Triglyceride: greater than or equal to 5OO mg/dL Cholesterol 212 <200 mg/dL Desirable Cholesterol: less than 200 mg/dL Borderline High Cholesterol: 200-239 mg/dL High Cholesterol: greater than 239 mg/dL LDL Cholesterol Calculated 131 <100 mg/dL Desirable LDL: less than 100 mg/dL Near Optimal/Above Optimal LDL: 110-129 mg/dL Borderline High LDL: 130-159 mg/dL High LDL: 160-189 mg/dL Very High LDL: greater than or equal to 190 mg/dL HDL Cholesterol 60 >40 mg/dL Desirable HDL: greater than 40 mg/dL Note: This HDL assay may give artificially low results in patients with liver disease. Vitamin D 25-OH Total Reviewed date:01/04/2024 12:36:06 PM Interpretation: Performing Lab:[address] [phone] Notes/Report: Vitamin D 25-OH Total 25.2 >30 ng/mL Health Based Reference Values* < 20 ng/mL Deficient 20-30 ng/mL Insufficient > 30 ng/mL Sufficient *Lois VIDAL. N Engl J Med. 2007;357:266-280 Care must be taken in interpreting Vitamin D results from different laboratories and methodologies. Published data demonstrated that results from patients undergoing hemodialysis may show a negative bias when tested with various automated 25-OH vitamin D assays when compared to LC-MS/MS. When testing samples from patients whose predominant form of Vitamin D is Vitamin D2, such as patients receiving Vitamin D2 supplementation, results that are subtherapeutic should be confirmed with another method such as LC-MS/MS. Microalbumin, Random Reviewed date:01/04/2024 06:39:24 PM Interpretation: Performing Lab:[address] [phone] Notes/Report: Creatinine Urine 113.61 Microalbumin Urine 1541.0 Microalbum/Creatinine Ratio Ur 1356.3 <30 ug/mg cr Albumin/Creatinine Ratio Reference Ranges: Normal: < 30 ug/mg creatinine Microalbuminuria: 30 - 300 ug/mg creatinine Clinical Albuminuria: > 300 ug/mg creatinine Hemoglobin A1c Reviewed date:01/04/2024 12:35:20 PM Interpretation: Performing Lab:[address] [phone] Notes/Report: Hemoglobin A1c % 9.6 <6.0 % Hemoglobin A1C Reference Range Adults: 4.8 - 6.0 % Non diabetic: < 6.0 % Goal: < 7.0 % Additional Action Suggested: > 8.0 % Note: Hemoglobin A1c results are invalid for patients with abnormal amounts of HbF. Blood transfusions may impact the HbA1c concentration in the patient sample. Estimated Average Glucose 229 eAG = Estimated average glucose which is %A1C expressed as average glucose, using the formula of the S8A-Vtpkdwr Average Glucose study (ADAG), Diabetes Care, Vol.31,#8, 2007 UA ClnCatch+Micro w/rflx Cul t Reviewed date:01/04/2024 12:49:14 PM Interpretation: Performing Lab:[facility], [address] [place] [phone] Notes/Report: Urine, Clean Catch Color Urine Yellow Appearance Urine Cloudy PH 7.0 5.0-9.0 Glucose Urine UA Negative Negative mg/dL Urine Blood Negative Negative Specific Rake - Urine 1.020 1.005-1.025 Urine Protein 300 (3+) Neg-Trace mg/dL Urine Ketones Negative Negative mg/dL Nitrite Urine Negative Negative Leukocyte Esterase Urine Moderate (2+) Negative RBC Urine 0-2 0-2 /HPF WBC Urine 11-20 0-5 /HPF Squamous Epithelial Cell Urine 11-20 0-2 /HPF Bacteria Urine 3+ None Seen Hyaline Casts Urine 0-2 0-2 /LPF Liver Panel Reviewed date:07/06/2024 04:44:07 PM Interpretation: Performing Lab:[facility], [address] [place] [phone] Notes/Report: Bilirubin Total 1.0 0.0-1.0 mg/dL Bilirubin Direct 0.3 0.0-0.5 mg/dL Aspartate Amino Transferase 34 5-31 U/L Alanine Aminotransferase 23 0-31 U/L Total Protein 7.1 6.5-8.0 g/dL Albumin Level 4.0 3.5-5.0 g/dL Alkaline Phosphatase 80 39-117 U/L Glucose Fasting Reviewed date:07/06/2024 04:39:33 PM Interpretation: Performing Lab:[facility], [address] [place] [phone] Notes/Report: Glucose Fasting 103 60-99 mg/dL A fasting glucose from 100-125 mg/dl is considered impaired (pre-diabetes). Lipid Panel with Reflex Reviewed date:07/06/2024 04:43:47 PM Interpretation: Performing Lab:[facility], [address] [place] [phone] Notes/Report: Triglycerides 105 <150 mg/dL Desirable Triglyceride: less than 150 mg/dL Borderline High Triglyceride 150-199 mg/dL High Triglyceride: 200-499 mg/dL Very High Triglyceride: greater than or equal to 5OO mg/dL Cholesterol 173 <200 mg/dL Desirable Cholesterol: less than 200 mg/dL Borderline High Cholesterol: 200-239 mg/dL High Cholesterol: greater than 239 mg/dL LDL Cholesterol Calculated 101 <100 mg/dL Desirable LDL: less than 100 mg/dL Near Optimal/Above Optimal LDL: 110-129 mg/dL Borderline High LDL: 130-159 mg/dL High LDL: 160-189 mg/dL Very High LDL: greater than or equal to 190 mg/dL HDL Cholesterol 51 >40 mg/dL Desirable HDL: greater than 40 mg/dL Note: This HDL assay may give artificially low results in patients with liver disease. Hemoglobin A1c Reviewed date:07/06/2024 12:27:15 PM Interpretation: Performing Lab:[facility], [address] [place] [phone] Notes/Report: Hemoglobin A1c % 6.7 <6.0 % Hemoglobin A1C Reference Range Adults: 4.8 - 6.0 % Non diabetic: < 6.0 % Goal: < 7.0 % Additional Action Suggested: > 8.0 % Note: Hemoglobin A1c results are invalid for patients with abnormal amounts of HbF. Blood transfusions may impact the HbA1c concentration in the patient sample. Estimated Average Glucose 146 eAG = Estimated average glucose which is %A1C expressed as average glucose, using the formula of the G3T-Llxmwhq Average Glucose study (ADAG), Diabetes Care, Vol.31,#8, 2007 Glucose, finger stick Reviewed date:11/06/2024 09:00:09 AM Interpretation: Performing Lab: Notes/Report: Value 90 Hold Gold Reviewed date:01/04/2024 12:34:39 PM Interpretation: Performing Lab:[facility], [address] [place] [phone] Notes/Report: Hold Gold See Note Specimen held untested for 24 hours; Call to request Chemistry testing. Urine Culture Reviewed date:01/06/2024 07:10:38 PM Interpretation: Performing Lab:[facility], [address] [place] [phone] Notes/Report: Urine Culture Report Result Urine Culture > 100,000 cfu/ml Urine Culture Mixed bacterial magi a characteristic of Urine Culture urogenital contamination. Glucose, Whole Blood Reviewed date:02/09/2024 08:35:24 PM Interpretation: Performing Lab:[address] [phone] Notes/Report: Glucose, Whole Blood 144 60-115 mg/dL METER #: [id number] Testing performed in the [facility] Rosalia Horta [address], [facility]. Glucose, Whole Blood Reviewed date:06/14/2024 02:17:33 PM Interpretation: Performing Lab:[facility], [address] [place] [phone] Notes/Report: Glucose, Whole Blood 139 60-115 mg/dL METER #: [id number] Testing performed in the [facility] Rosalia Horta, [facility]. Lipid Panel Reviewed date:07/03/2024 11:07:17 AM Interpretation: Performing Lab:[facility], [address] [place] [phone] Notes/Report: Triglycerides 117 <150 mg/dL Desirable Triglyceride: less than 150 mg/dL Borderline High Triglyceride 150-199 mg/dL High Triglyceride: 200-499 mg/dL Very High Triglyceride: greater than or equal to 5OO mg/dL Cholesterol 133 <200 mg/dL Desirable Cholesterol: less than 200 mg/dL Borderline High Cholesterol: 200-239 mg/dL High Cholesterol: greater than 239 mg/dL LDL Cholesterol Calculated 65 <100 mg/dL Desirable LDL: less than 100 mg/dL Near Optimal/Above Optimal LDL: 110-129 mg/dL Borderline High LDL: 130-159 mg/dL High LDL: 160-189 mg/dL Very High LDL: greater than or equal to 190 mg/dL HDL Cholesterol 45 >40 mg/dL Desirable HDL: greater than 40 mg/dL Note: This HDL assay may give artificially low results in patients with liver disease. Free T4 (Free Thyroxine) Reviewed date:07/03/2024 11:15:23 AM Interpretation: Performing Lab:[facility], [address] [place] [phone] Notes/Report: Free T4 (Free Thyroxine) 1.14 0.71-1.85 ng/dL Thyroid Stimulating Hormone Reviewed date:07/03/2024 11:15:32 AM Interpretation: Performing Lab:[facility], [address] [place] [phone] Notes/Report: Thyroid Stimulating Hormone 1.60 0.32-4.0 uIU/mL TSH 3rd Generation ([facility]) Microalbumin, Random Reviewed date:07/03/2024 11:15:50 AM Interpretation: Performing Lab:[facility], [address] [place] [phone] Notes/Report: Creatinine Urine 155.38 Microalbumin Urine 462.0 Microalbum/Creatinine Ratio Ur 297.3 <30 ug/mg cr Albumin/Creatinine Ratio Reference Ranges: Normal: < 30 ug/mg creatinine Microalbuminuria: 30 - 300 ug/mg creatinine Clinical Albuminuria: > 300 ug/mg creatinine Luis A Garza Reviewed date:07/06/2024 12:26:46 PM Interpretation: Performing Lab:[facility], [address] [place] [phone] Notes/Report: Luis A Garza See Note Specimen held untested for 24 hours; Call to request Chemistry testing. Complete Blood Count Auto Di ff Reviewed date:08/14/2024 02:07:47 PM Interpretation: Performing Lab:[facility], [address] [place] [phone] Notes/Report: White Blood Count 7.2 4.8-10.8 X10*3/uL Red Blood Count 4.79 4.20-5.50 X10*6/uL Hemoglobin 13.9 12.0-16.0 g/dl Hematocrit 41.8 37.0-47.0 % Mean Corpuscular Volume 87.3 80.0-98.0 fL Mean Corpuscular Hemoglobin 29.0 27.0-33.0 pg Mean Corpuscular HGB Conc 33.3 31.0-35.0 g/dl Red Cell Distribution Width 12.1 11.0-16.0 % Platelet Count 324 160-400 X10*3/uL Mean Platelet Volume 9.9 9.4-12.3 fL Neutrophils Percent Auto 63.4 45-73 % Imm Gran Pct Auto 0.4 0.0-0.4 % Lymphocytes Percent Auto 29.6 20-40 % Monocytes Percent Auto 5.2 2-11 % Eosinophils Percent Auto 1.3 0-4 % Basophils Percent Auto 0.1 0-2 % NRBC Pct Auto 0.0 0.0-0.2 /100WBC Neutrophils Absolute Auto 4.5 2.0-8.3 x10*3/uL Imm Gran Abs Auto 0.03 0.00-0.03 X10*3/uL Lymphocytes Absolute Auto 2.1 1.2-4.9 X10*3/uL Monocytes Absolute Auto 0.4 0.1-1.2 X10*3/uL Eosinophils Absolute Auto 0.1 0.0-0.4 X10*3/uL Basophils Absolute Auto 0.0 0.0-0.2 X10*3/uL NRBC Abs Auto 0.000 0.0-0.012 X10*3/uL Liver Panel Reviewed date:08/14/2024 02:07:32 PM Interpretation: Performing Lab:[facility], [address] [place] [phone] Notes/Report: Bilirubin Total 0.7 0.0-1.0 mg/dL Bilirubin Direct 0.2 0.0-0.5 mg/dL Aspartate Amino Transferase 27 5-31 U/L Alanine Aminotransferase 25 0-31 U/L Total Protein 7.1 6.5-8.0 g/dL Albumin Level 4.0 3.5-5.0 g/dL Alkaline Phosphatase 110 39-117 U/L Basic Metabolic Panel Reviewed date:08/14/2024 02:07:16 PM Interpretation: Performing Lab:[facility], [address] [place] [phone] Notes/Report: Sodium 142 135-145 mmol/L Potassium 4.3 3.3-5.1 mmol/L Chloride 102 96-108 mmol/L Carbon Dioxide 30 22-29 mmol/L Anion Gap 14 12-20 Blood Urea Nitrogen 21 9-16 mg/dL Creatinine 0.88 0.5-1.4 mg/dL Creatinine Clr Calc Pharmacy 71.7 Provided height and weight: 160.02 cm, 99.79 kg. eGFR (calculated from the MDRD study equation) and eCrCl (calculated from the Cockcroft-Gault equation) are based on different parameters and may not yield comparable results. If eCrCl result is absurd, please check patient's height/weight. Estimated Glomerular Filt Rate > 60 Chronic Kidney Disease: Estimated GFR < 60 mL/min/1.73m2 Severe Kidney Disease: Estimated GFR < 15 mL/min/1.73m2 Glucose Random 137 60-115 mg/dL Calcium 9.3 8.4-10.2 mg/dL Troponin-I High Sensitivity Reviewed date:08/14/2024 02:07:24 PM Interpretation: Performing Lab:[facility], [address] [place] [phone] Notes/Report: Troponin-I High Sensitivity 6.1 <3.5-17.0 ng/L The [place] high sensitivity Troponin-I results should be used in conjunction with other diagnostic information such as ECG, clinical observations and information, and patient symptoms to aid in the diagnosis of FL. CT head/brain wo con Reviewed date:08/15/2024 12:24:33 PM Interpretation: Performing Lab: Notes/Report: [address] [address] [address] Scan Report Signed Patient: Radha Sifuentes MR#: [id number] 93 : 1960 Acct:[id number] Age/Sex: 64 / F ADM Date: 08/14/24 Loc: .ED Attending Dr: Ordering Physician: Riley Cummings Date of Service: 08/14/24 Procedure(s): CT head/brain wo IV con Accession Number(s): [id number] cc: Riley Cummings; Ilir Hodge MD EXAMINATION: CT HEAD WITHOUT CONTRAST CLINICAL INFORMATION: Hypertension COMPARISON: None available. TECHNIQUE: Contiguous axial imaging was performed from the skull base to vertex without intravenous administration of contrast. This CT examination was performed using dose optimization techniques as appropriate, variously including the following: *Automated exposure control *Adjustment of mA and/or kV according to patient size (this includes techniques or standardized protocols for targeted exams where dose is matched to indication/reason for exam; i.e. extremities or head) *Use of iterative reconstruction technique DLP: 542 mGy-cm FINDINGS: There is no evidence of acute intracranial hemorrhage or edematous large vessel territorial infarction. No abnormal mass effect or midline shift is seen. [place] to white matter differentiation is well preserved. No abnormal extra-axial fluid collections are identified. The ventricles are normal in size. No abnormal attenuation in the brain parenchyma. No acute calvarial fracture.. Paranasal sinuses and mastoid air cells are well-aerated. CT/CT head/brain wo IV con IMPRESSION: No CT evidence of acute intracranial hemorrhage or edematous territorial infarction.. Electronically signed by: Carlos Huitron MD 08/14/2024 05:48 PM [facility] Dictated By: Carlos Huitron MD Signed By: <Electronically signed by Carlos Huitron MD in OV> 08/14/241747 DD/ 1516 TD/TT: 08/14/24 1617 Wire Saw Operator: [address] [address] [address] Scan Report Signed Patient: Sandra Sifuentes MR#: [id number] 93 : 1960 Acct:[id number] Age/Sex: 64 / F ADM Date: 08/14/24 Loc: HO.ED Attending Dr: Ordering Physician: Riley Cummings Date of Service: 08/14/24 Procedure(s): CT head/brain wo IV con Accession Number(s): [id number] cc: Riley Cummings; Ilir Hodge MD EXAMINATION: CT HEAD WITHOUT CONTRAST CLINICAL INFORMATION: Hypertension COMPARISON: None available. TECHNIQUE: Contiguous axial imaging was performed from the skull base to vertex without intravenous administration of contrast. This CT examination was performed using dose optimization techniques as appropriate, various ly including the following: *Automated exposure control *Adjustment of mA and/or kV according to patient size (this includes techniques or standardized protocols for targeted exams where dose is matched to indication/reason for exam; i.e. extremities or head) *Use of iterative reconstruction technique DLP: 542 mGy-cm FINDINGS: There is no evidence of acute intracranial hemorrhage or edematous large vessel territorial infarction. No abnormal mass effect or midline shift is seen. Tavarez to white matter differentiation is well preserved. No abnormal extra-ax ial fluid collections are identified. The ventricles are normal in size. No abnormal attenuation in the brain parenchyma. No acute calvarial fracture.. Paranasal sinuses and mastoid air cells are well-aerated. CT/CT head/brain wo IV con IMPRESSION: No CT evidence of ac [place] intracranial hemorrhage or edematous territorial infarction.. Electronically raad d by: Carlos Huitron MD 08/14/2024 05:48 PM [facility] Dictated By: Carlos Huitron MD Signed By: <Electronically signed by Carlos Huitron MD in OV> 08/14/241747 DD/ 1516 TD/TT: 08/14/24 1617 Wire Saw Operator: HEATH Troponin-I High Sensitivity Reviewed date:08/14/2024 04:57:01 PM Interpretation: Performing Lab:[facility], [address] [place] [phone] Notes/Report: Troponin-I High Sensitivity 8.8 <3.5-17.0 ng/L The Romo high sensitivity Troponin-I results should be used in conjunction with other diagnostic information such as ECG, clinical observations and information, and patient symptoms to aid in the diagnosis of FL. Glucose, Whole Blood Reviewed date:09/11/2024 12:40:04 PM Interpretation: Performing Lab:[facility], [address] [place] [phone] Notes/Report: Glucose, Whole Blood 139 60-115 mg/dL METER #: [id number] Testing performed in the [facility]in[facility], [address] [place] [address] [facility] H[facility] MM tomosynthesis screening B I Reviewed date:09/28/2024 04:55:24 PM Interpretation: Performing Lab: Notes/Report: [facility] [place] [address] Mammography Report Signed Patient: Radha Sifuentes MR#: [id number] 93 : 1960 Acct:[id number] Age/Sex: 64 / F ADM Date: 09/20/24 Loc: HO.MAMMO Attending Dr: Ilir Hodge MD Ordering Physician: Ilir Hodge MD Results: 2Be nign Findings Date of Service: 09/20/24 Follow Up: 1 Year From [facility] Mammogram Procedure(s): MM tomosynthesis screening BI Accession Number(s): [id number] cc: Ilir Hodge MD EXAMINATION: MM SCREENING DIGITAL BREAST TOMOSYNTHESIS, BILATERAL CLINICAL INFORMATION: Screening. Asymptomatic. COMPARISON: Mammography: Comparison is made with available priors TECHNIQUE: Digital breast mammography with tomosynthesis is performed in both the craniocaudal and mediolateral oblique views along with computer-aided detection (CAD). FINDINGS: There are scattered areas of fibroglandular density (ACR BI-RADS breast composition Category b). Bilateral scattered calcifications are stable. There are no significant masses, abnormal calcifications, or other abnormalities. MM/MM tomosynthesis screening BI IMPRESSION: No mammographic evidence of malignancy. ASSESSMENT: BI-RADS BI-RADS 2 - Benign Findings RECOMMENDATION: Routine annual mammography screening. 1 year F/U This examination should not preclude the clinical evaluation of a suspicious palpable abnormality. This patient's information was entered into a reminder system with a target due date for their next mammogram. Electronically signed by: Kateryna Quevedo DO 09/28/2024 02:51 PM EST Dictated By: Kateryna Quevedo DO Signed By: <Electronically signed by Kateryna Quevedo DO in OV> 09/28/24 1451 DD/ 1045 TD/TT: 09/20/24 1108 Wire Saw Operator: [place] [facility] [address] [place] [address] Mammography Report Signed Patient: Sandra Sifuentes MR#: [id number] 93 : 1960 Acct:[id number] Age/Sex: 64 / F ADM Date: 09/20/24 Loc: HO.MAMMO Attending Dr: Ilir Hodge MD Ordering Physician: Ilir Hodge MD Results: 2Be nign Findings Date of Service: 09/20/24 Follow Up: 1 Year From [facility] Mammogram Procedure(s): MM tomosynthesis screening BI Accession Number(s): [id number] cc: Ilir Hodge MD EXAMINATION: MM SCREENING DIGITAL BREAST TOMOSYNTHESIS, BILATERAL CLINICAL INFORMATION: Screening. Asymptomatic. COMPARISON: Mammography: Compari son is made with available priors TECHNIQUE: Digital breast mammography with tomosynthesis is performed in both the craniocaudal and mediolateral oblique views along with computer-aided detection (CAD). FINDINGS: There are scattered areas of fibroglandular density (ACR BI-RADS breast composition Category b). Bilateral scattered calcifications are stable. There are no significant masses, abnormal calcifications, or other abnormalities. MM/MM tomosynthesis screening BI IMPRESSION: No mammographic evidence of malignancy. ASSESSMENT: BI-RADS BI-RADS 2 - Benign Findings RECOMMENDATION: Routine annual mammography screening. 1 year F/U This examination shakeel uld not preclude the clinical evaluation of a suspicious palpable abnormality. This patient's information was entered into a reminder system with a target due date for their next mammogram. Electronically raad d by: Kateryna Quevedo DO 09/28/2024 02:51 PM EST RP Dictated By: Kateryna Quevedo DO Signed By: <Electronically signed by Kateryna Quevedo DO in OV> 09/28/24 1451 DD/ 1045 TD/TT: 09/20/24 1108 Wire Saw Operator: XR chest 2V Reviewed date:11/06/2024 05:58:04 PM Interpretation: Performing Lab: Notes/Report: [address] [address] XRay Report Signed Patient: Radha Sifuentes MR#: [id number] 93 : 1960 Acct:[id number] Age/Sex: 64 / F ADM Date: 11/06/24 Loc: HOYOHAN Attending Dr: Ilir Hodge MD Ordering Physician: Ilir Hodge MD Date of Service: 11/06/24 Procedure(s): XR chest 2V Accession Number(s): [id number] cc: Ilir Hodge MD EXAMINATION: XR CHEST 2 VIEWS HISTORY: Asthma COMPARISON: Comparison is made with the prior examination dated 12/05/2021. FINDINGS: PA and lateral views of the chest are submitted. The lungs are expanded and clear. There is no pleural effusion, pneumothorax, or pulmonary vascular congestion. The heart is normal in size. There is mild degenerative disc disease of the spine. XR/XR chest 2V IMPRESSION: No acute cardiopulmonary abnormality. Electronically signed by: Brandon Parra MD 11/06/2024 03:57 PM EDT RP Dictated By: Brandon Parra MD Signed By: <Electronically signed by Brandon Parra MD in OV> 11/06/24 1557 DD/ 0930 TD/TT: 11/06/24 0938 Wire Saw Operator: [address] [place] [address] XRay Report Signed Patient: Sandra Sifuentes MR#: [id number] 93 : 1960 Acct:[id number] Age/Sex: 64 / F ADM Date: 11/06/24 Loc: HO.NAE Attending Dr: Ilir Hodge MD Ordering Physician: Ilir Hodge MD Date of Service: 11/06/24 Procedure(s): XR mar[address] st 2V Accession Number(s): [id number] cc: Ilir Hodge MD EXAMINATION: XR CHES T 2 VIEWS HISTORY: Asthma COMPARISON: Comparis on is made with the prior examination dated 12/05/2021. FINDINGS: PA and lateral views of the chest are submitted. The lungs are expanded and destin ar. There is no pleural effusion, pneumothorax, or pulmonary vascular congestion. The heart is normal in size. There is mild degenerative di sc disease of the spine. XR/XR chest 2V IMPRESSION: No acute cardiopulmonary abnormality. Electronically raad d by: Brandon Parra MD 11/06/2024 03:57 PM EDT Dictated By: Brandon Parra MD Signed By: <Electronically signed by Brandon Parra MD in [place]> 11/06/24 1557 DD/ 0930 TD/TT: 11/06/24 0938 Wire Saw Operator: Glucose, Whole Blood Reviewed date:11/16/2024 12:16:53 PM Interpretation: Performing Lab:[facility], [address] [place] [phone] Notes/Report: Glucose, Whole Blood 53 60-115 mg/dL METER #: [id number] Testing performed in the Endocrinology Department and Diabetes [address], [place]. Glucose, Whole Blood Reviewed date:11/16/2024 12:16:39 PM Interpretation: Performing Lab:[facility], [address] [place] [id number] Notes/Report: Glucose, Whole Blood 93 60-115 mg/dL METER #: [id number] Testing performed in the [facility]ocrin[facility], [place]. Reason For Referral Reason Hives of unknow orig in Diagnosis 1 Hives of unknown gregg gin (L50.9) Referral Organization Ilir Hodge MD Referring Provider First Name Ilir Referring Provider Last Name Ayesha Referring Provider Speciality Internal edicine Referred Provider COREY CHAND Referred Provider Specialty Allergy/Immu nology General Notes Penny Saenz 11:58:48 AM EST > info faxed to the [facility] office p f they will call patient with an appt, Penny Saenz 09/15/2024 02:42:20 PM > referral info mailed to patient Referral Priority Routine Referral Appointment Date 11/13/2024 Reason Bronchitis Diagnosis 1 Bronchitis (J40) Referral Organization Ilir Hodge MD Referring Provider First Name Ilir Referring Provider Last Name Ayesha Referring Provider Speciality Internal edicine Referred Provider BETH RUSSELL Referred Provider Specialty Pulmonary Di seases General Notes Penny Saenz 0 11/13/2024 08:31:51 AM > referral info faxed, Penny Saenz 12/07/2024 03:03:49 PM > appt is in the [place] office, patient is aware of appointment Referral Priority Routine Referral Appointment Date 12/13/2024 Medications Medication SIG (Take, Route, Frequency, Duration) Notes Start Date End Date Status Sertraline HCl 100MG take 1 tablet by [facility] once daily for 90 days Orally Once a day for 90 days Active Aspir-Low 81 MG 1 tablet Orally Once a day for 30 day(s) Active Clobetasol Propionate 0.05 % 1 application Externally Twice a day for 10 day(s) 03/10/2021 Active Paxlovid (300/100) 20 x 150 MG & 10 x 100MG 2 tabs of nirm and 1 tab sukhjinder Orally twice for 5 days 05/15/2022 Not-Taking Albuterol Sulfate HFA 108 (90 Base) MCG/ACT 2 puffs as needed Inhalation every 4 hrs for 30 days Active Symbicort 160-4.5 MCG/ACT 2 puffs Inhalation twice a day for 30 days 11/13/2024 Active HumaLOG KwikPen 100 UNIT/ML 60 units Subcutaneous Active Lisinopril-hydroCHLOROth iazide 20-12.5 MG take 2 tablet by mouth once daily for 90 days Orally Once a day Active Vitamin D3 125 MCG (5000 UT) 1 tablet Orally Once a day 11/05/2017 Active Valtrex 1 GM 1 tablet Orally 3 ti mes a day for 7 days 12/17/2020 Not-Taking amLODIPine Besylate 10 MG 1 tablet Orally Once a day 10/24/2019 Active Rosuvastatin Calcium 40 MG 1 tablet Orally Once a day Active Ibuprofen 800 MG 1 tablet with food o r milk as needed Orally Three times a day 09/01/2019 Not-Taking Vitamin D3 50 MCG (2000 UT) 1 capsule Orally Once a day for 30 day(s) 01/01/2022 Not-Taking Immunizations Vaccine Route Administration Date Status Comme nts Fluarix Quadrivalent IM Intramuscular 05/28/2014 [facility] red Flu Vaccine IM Intramuscular 05/24/2015 Administered PPSV23 (Pnemovax) IM Intramuscular 11/22/2015 Administered Fluarix Quadrivalent IM Intramuscular 05/22/2016 [facility] red Fluarix Quadrivalent IM Intramuscular 05/10/2017 [facility] red Fluarix [facility] 13 IM Intramuscular 11/22/2018 Administered Fluarix Quadrivalent IM Intramuscular 05/22/2019 [facility] Cov[facility]ine Unknown 10/04/2020 Administered Moderna A t work Covid Vaccine Unknown 11/01/2020 Administered Moderna TDaP Unknown 12/05/2020 Administered [facility] PPSV23 (Pnemovax) IM Intramuscular 03/10/2021 Administered Fluarix Quadrivalent IM Intramuscular 06/10/2021 [facility] adelaida SARS-COV-2 Moderna Unknown 07/17/2021 Administered Flu Vaccine Unknown 05/28/2014 Pending Social History Tobacco Use: Social History Observation Description Date Details (start date - stop date) Never Smoker NA - NA Tobacco Use/Smoking Question Answer Notes Patient is a nonsmoker Additional Findings: Tobacco Non-User Cu rrent non-smoker, currently using no form of tobacco Alcohol Screen Question Answer Notes Did you have a drink contain ing alcohol in the past year? Yes How often did you have a dri nk containing alcohol in the past year? Monthly or less (1 point) How many drinks did you have on a typical day when you were drinking in the past year? 1 or 2 drinks (0 point) How often did you have 6 or more drinks on one occasion in the past year? Never (0 point) Points 1 Interpretation Negative Problems Problem Type SNOMED Code ICD Code Onset Dates Problem Status W/U Status Risk Notes Problem 916148326 Type 2 diabetes mellitus without complications (E11.9) Active confirmed Problem 54778010 Lymphocytosis (D72.820) Active confirm ed Problem 57856415 Depression (F32.9) Active confirmed Problem 56690568 Vitamin D defici ency (E55.9) Active confirmed Problem 212236251 Diverticulitis (K57.92) Active confir med Problem 969314538 Mild intermitten t asthma, uncomplicated (J45.20) Active confirmed Problem 433525849 Other specified menopausal and perimenopausal disorders (N95.8) Active confirmed Problem 482401447 Encounter for sc reening for other protozoal diseases and helminthiases (Z11.6) Active confirmed Problem 110105501 Asymptomatic men opausal state (Z78.0) Active confirmed Problem 90426088 Essential hypert ension (I10) Active confirmed Problem 00056397 Dysthymia (F34.1) Active confirmed Problem 28941542 Sciatica of righ t side (M54.31) Active confirmed Problem 735976616 Pure hypercholesterolemia (E78.00) Active confirmed Problem 586402896 Hypertensive cri sis (I16.9) Active confirmed Problem 90981039 Kidney stone on left side (N20.0) Active confirmed Problem 592134736 Screening mammog osiris for breast cancer (Z12.31) Active confirmed Vital Signs Blood pressure diastolic 80 mm Hg 11/27/2024 timothy ght is up 2 pounds since 11-13-24 Height 64 in 11/27/2024 weight is up 2 pounds since 11-13-24 Blood pressure systolic 168 mm Hg 11/27/2024 weig ht is up 2 pounds since 11-13-24 Weight 235 lbs 11/27/2024 weight is up 2 pounds since 11-13-24 BMI 40.33 kg/m2 11/27/2024 weight is up 2 pounds since 11-13-24 Encounters Encounter Location Date Provider Diagnosis Ilir Hodge MD [address] [place] [address] Drive [address] [place] [id number] 01/04/2024 Ilir Hodge Blood tests for rout ine general physical examination Z00.00 ; Essential hypertension I10 ; Pure hypercholesterolemia E78.00 ; Vitamin D deficiency E55.9 and Type 2 diabetes mellitus without complications E11.9 Ilir Hodge MD [address] [place] [id number] 07/06/2024 Ilir Hodge Pure hypercholestero lemia E78.00 and Type 2 diabetes mellitus without complications E11.9 Ilir Hodge MD [address] [place] [id number] 01/11/2024 Ilir Hodge Essential hypertensi on I10 ; Annual physical exam Z00.00 ; Pure hypercholesterolemia E78.00 ; Type 2 diabetes mellitus without complications E11.9 ; Vitamin D deficiency E55.9 and Depression screening Z13.31 Ilir Hodge MD [address] [place] [id number] 07/14/2024 Ilir Hodge Type 2 diabetes piter itus without complications E11.9 ; Cardiac murmur R01.1 and Pure hypercholesterolemia E78.00 Ilir Hodge MD [address] [place] [id number] 08/14/2024 Ilir Hodge Type 2 diabetes piter itus without complications E11.9 ; Hypertensive crisis I16.9 and Hives of unknown origin L50.9 Ilir Hodge MD [address] [place] [id number] 08/25/2024 Ilir Hodge Type 2 diabetes piter itus without complications E11.9 ; Hives of unknown origin L50.9 and Essential hypertension I10 Ilir Hodge MD [address] [place] [id number] 09/07/2024 Ilir Hodge Type 2 diabetes piter itus without complications E11.9 and Hives of unknown origin L50.9 Ilir Hodge MD [address] [place] [address] [id number] 11/06/2024 Ilir Hodge Type 2 diabetes piter itus without complications E11.9 and Mild intermittent asthma, uncomplicated J45.20 Ilir Hodge MD [address] [place] [id number] 11/13/2024 Ilir Hodge Bronchitis J40 Ilir Hodge MD [address] [place], [place] [id number] 11/27/2024 Ilir Hodge Persistent cough for 3 weeks or longer R05.3 ; Type 2 diabetes mellitus without complications E11.9 and Essential hypertension I10 Assessments Encounter Date Diagnosis (ICD Code) Assessment Notes Treatment Notes Treatment Clinical Notes Section Notes 01/04/2024 [address] tests [address] ine general physical examination (ICD-10 - Z00.00) 01/04/2024 Essential hypertensi on (ICD-10 - I10) 07/06/2024 Pure hypercholesterolemia (ICD-10 - E78.00) 07/06/2024 Type 2 diabetes mellitus without complications (ICD-10 - E11.9) 01/11/2024 Essential hypertensi on (ICD-10 - I10) doing well on meds, will continue current regiment 01/11/2024 Annual physical exam (ICD-10 - Z00.00) labs reviewed and discussed with patient 07/14/2024 Type 2 diabetes mellitus without complications (ICD-10 - E11.9) doing great with the new pump, will continue current regiment 07/14/2024 Cardiac murmur (ICD- 10 - R01.1) had echo 4 years ago normal, will continue to monitor 08/14/2024 Type 2 diabetes mellitus without complications (ICD-10 - E11.9) doing well, will continue current regiment 08/14/2024 Hypertensive crisis (ICD-10 - I16.9) will send to the er 08/25/2024 Type 2 diabetes mellitus without complications (ICD-10 - E11.9) doing well with the pump and even on the steroids 08/25/2024 Hives of unknown gregg gin (ICD-10 - L50.9) referral to allergy 09/07/2024 Type 2 diabetes mellitus without complications (ICD-10 - E11.9) stable, will continue current regiment 09/07/2024 Hives of unknown gregg gin (ICD-10 - L50.9) is going to see mat worker in one month. 11/06/2024 Type 2 diabetes mellitus without complications (ICD-10 - E11.9) order given to patient/ is aware that the prednisone will effect her sugars but hopefully the pump will make the necessary adjustments, will conointue current regiment but will also monitor blood sugars 11/13/2024 Bronchitis (ICD-10 - J40) patient verba;ized understanding of medication and dirctions for use 11/27/2024 Persistent cough for 3 weeks or longer (ICD-10 - R05.3) going to see pulmonary in 2 weeks will try to get ct before that visit/ order faxed to [facility] 01/04/2024 Pure hypercholesterolemia (ICD-10 - E78.00) 01/11/2024 Pure hypercholesterolemia (ICD-10 - E78.00) running high but is on maximum dose of rosuvatatin, will continue current regiment 07/14/2024 Pure hypercholesterolemia (ICD-10 - E78.00) stable, will contiue current regiment 08/14/2024 Hives of unknown gregg gin (ICD-10 - L50.9) will try a low dose of prednisone and watch sugars closely, patient verbalized understanding od medication and directions for use 08/25/2024 Essential hypertensi on (ICD-10 - I10) running too high/ has been gaining a lot of weight. will increase her amlodipine to 10 mg and recheck bp in couple weeks 11/06/2024 Mild intermittent asthma, uncomplicated (ICD-10 - J45.20) patient verbalized understanding of medication and directions for use 11/27/2024 Type 2 diabetes mellitus without complications (ICD-10 - E11.9) doing well but with the increasing weight may be a candidate for ozempic, will continue current regiment in the meantime 01/04/2024 Vitamin D deficiency (ICD-10 - E55.9) 01/11/2024 Type 2 diabetes mellitus without complications (ICD-10 - E11.9) followed by dr shannon, will continue current regiment 11/27/2024 Essential hypertensi on (ICD-10 - I10) running a little high today, will contiue curent regiment and will contiue to monitor 01/04/2024 Type 2 diabetes mellitus without complications (ICD-10 - E11.9) 01/11/2024 Vitamin D deficiency (ICD-10 - E55.9) going to take vit d 01/11/2024 Depression screening (ICD-10 - Z13.31) negative screen Plan Of Treatment Pending Test Test Name Order Date Electrocardiogram (EKG) 09/17/2016 Electrocardiogram (EKG) 11/05/2017 Electrocardiogram (EKG) 10/09/2019 CT ABD & PELVIS NO CONTRAST 11/17/2022 XR CHEST 2 VIEW PA & LAT 11/06/2024 BONE DENSITY DEXA 09/09/2020 BONE DENSITY DEXA 12/09/2020 MAMMOGRAM DIGITAL BILATERAL SCREEN 09/09 ECHO 10/09/2019 CT chest wo con 11/27/2024 MM screening mammo BI 01/05/2023 XR DEXA axial skeleton 01/05/2023 Next Appt Details Provider Name:Ilir Hamilton Usama ier, 12/28/2024 07:45:00 AM, [address] [place] [address], [address], [place], [place], [id number], Provider Name:Ilir Hamilton Usama ier, 01/08/2025 07:30:00 AM, [address] [place] [address], [address], [place], [place], [id number], Provider Name:Ilir Alfonso Usama ier, 01/15/2025 09:30:00 AM, [address] [place] [address], [address], [place], [place], [phone], Insurance Providers Payer Name Payer Address Payer Phone Subscriber Number Group Number Insured Name Patient Relationship to Insured Coverage Start Date Coverage End Date [facility] [employer] [address] [address] [place] [address] [id number] RADHA SIFUENTES Self - patient is the insured MEDICARE [employer] [address] [place] [id number] BEAR RADHA Self - patient is the insured Medical (General) History Medical History History ICD Code colonoscopy 2010 due in 5 ye ars; colonoscopy 04/13/[address] Georgina Philippe in 2027
--- OUTSIDE RECORDS SUMMARY | 2024-12-13 09:59 | XMS_ITS ---
Author Organization Ilir Hodge MD Address [address] [place] [phone] Care Team Providers Care Greeting Card Maker Name Role Phone Ilir Hodge Primary Care Provider [phone] Allergies Allergen (clinical drug ingredient) Drug/Non Drug Allergy documented on EMR Reaction Allergy Type Onset Date Status dulaglutide Trulicity pancreatitis Drug Allergy Ac tive Penicillin G Benzathine hives Drug Allergy Active sulfamethoxazole / trimethoprim Bactrim low platelets Drug Allergy Active REASON FOR VISIT 2 WEEK Medications Medication SIG (Take, Route, Frequency, Duration) Notes Start Date End Date Status Sertraline HCl 100MG take 1 tablet by [facility] once daily for 90 days Orally Once a day for 90 days Active HumaLOG KwikPen 100 UNIT/ML 60 units Subcutaneous Active Vitamin D3 125 MCG (5000 UT) 1 tablet Orally Once a day 11/05/2017 Active Rosuvastatin Calcium 40 MG 1 tablet Orally Once a day Active Aspir-Low 81 MG 1 tablet Orally Once a day for 30 day(s) Active Clobetasol Propionate 0.05 % 1 application Externally Twice a day for 10 day(s) 03/10/2021 Active Lisinopril-hydroCHLOROth iazide 20-12.5 MG take 2 tablet by mouth once daily for 90 days Orally Once a day Active amLODIPine Besylate 10 MG 1 tablet Orally Once a day 10/24/2019 Active Ibuprofen 800 MG 1 tablet with food o r milk as needed Orally Three times a day 09/01/2019 Not-Taking Paxlovid (300/100) 20 x 150 MG & 10 x 100MG 2 tabs of nirm and 1 tab sukhjinder Orally twice for 5 days 05/15/2022 Not-Taking Symbicort 160-4.5 MCG/ACT 2 puffs Inhalation twice a day for 30 days 11/13/2024 Active Valtrex 1 GM 1 tablet Orally 3 ti mes a day for 7 days 12/17/2020 Not-Taking Vitamin D3 50 MCG (2000 UT) 1 capsule Orally Once a day for 30 day(s) 01/01/2022 Not-Taking Albuterol Sulfate HFA 108 (90 Base) MCG/ACT 2 puffs as needed Inhalation every 4 hrs for 30 days Active Vital Signs Blood pressure systolic 168 mm Hg 11/28/19 25 Blood pressure diastolic 80 mm Hg 025 Height 64 in 11/27/2024 Weight 235 lbs 11/27/2024 BMI 40.33 kg/m2 11/27/2024 weight is up 2 pounds since 11-13-24 Encounters Encounter Location Date Provider Diagnosis Ilir Hodge MD [address] [place] [address] Drive [address] [place], [place] [phone] 11/27/2024 Ilir Hodge Persistent cough for 3 weeks or longer R05.3 ; Type 2 diabetes mellitus without complications E11.9 and Essential hypertension I10 Assessments Encounter Date Diagnosis (ICD Code) Assessment Notes Treatment Notes Treatment Clinical Notes Section Notes 11/27/2024 Persistent cough for 3 weeks or longer (ICD-10 - R05.3) going to see pulmonary in 2 weeks will try to get ct before that visit/ order faxed to [facility] 11/27/2024 Type 2 diabetes mellitus without complications (ICD-10 - E11.9) doing well but with the increasing weight may be a candidate for ozempic, will continue current regiment in the meantime 11/27/2024 Essential hypertension (ICD-10 - I10) running a little high today, will contiue curent regiment and will contiue to monitor Plan Of Treatment Medication Medication Name Sig Start Date Stop Date Notes HumaLOG KwikPen 100 UNIT/ML 60 units Subcutaneous Lisinopril-hydroCHLOROthiazi de 20-12.5 MG take 2 tablet by mouth once daily for 90 days Orally Once a day amLODIPine Besylate 10 MG 1 tablet Orally Once a day 10/24 Treatment Notes Assessment Notes Persistent cough for 3 weeks or longer g oing to see pulmonary in 2 weeks will try to get ct before that visit/ order faxed to [facility] Type 2 diabetes mellitus wit hout complications doing well but with the increasing weigh t may be a candidate for ozempic, will continue current regiment in the meantime Essential hypertension running a little high today, will contiue curent regiment and will contiue to monitor Pending Test Test Name Order Date CT chest wo con 11/27/2024 Next Appt Details Follow Up: 4 Weeks, Reason: Provider Name:Ilir alford, 12/28/2024 07:45:00 AM, [address] [place] [address], [address], [phone], Provider Name:Ilir alford, 01/08/2025 07:30:00 AM, [address] [place] [address], [address] [place] [address], [phone], Provider Name:Ilir alford, 01/15/2025 09:30:00 AM, [address] [place] [address], [address] [place] [address], [phone], Progress Notes * SAVANNAH SIFUENTES EDOB: (64 yo F)Acc No.[id number]:11/27/2024 Progress Notes Patient:?SAVANNAH SIFUENTES Provider:?Ilir Hodge MD :1960???Age:64 Y???Sex:Female D ate:11/27/2024 Address:[facility] [id number] Subjective: * Chief Complaints: * ???2 WEEK * HPI: ???Symptom(s):?patient is a 64 yo female here for 2 week follow up visit/ still with cough; prednisone and z pack didn't work. * ROS:?General/Constitutional:?Denies?Chills.?Denies?Fatigue.?Denies?Fever.?Denies?Headache.?ENT:?Denies?Sore throat.?Respiratory:?Admits?Cough.?Denies?Shortness of breath at rest.?Denies?Shortness of breath with exertion.?Denies?Sputum production.?Denies?Wheezing.?Gastrointestinal:?Denies?Diarrhea.?Denies?Nausea.? * Medical History:? * Surgical History:? * Hospitalization/Major Diagno stic Procedure:? * Medications:?TakingAspir-Low 81 MG Tablet Delayed Release 1 tablet Orally Once a day Clobetasol Propionate 0.05 % Cream 1 application Externally Twice a day Sertraline HCl 100MG Tablet take 1 tablet by mouth once daily for 90 days Orally Once a day Vitamin D3 125 MCG (5000 UT) Capsule 1 tablet Orally Once a day Rosuvastatin Calcium 40 MG Tablet 1 tablet Orally Once a day Lisinopril-hydroCHLOROthiazide 20-12.5 MG Tablet take 2 tablet by mouth once daily for 90 days Orally Once a day amLODIPine Besylate 10 MG Tablet 1 tablet Orally Once a day HumaLOG KwikPen 100 UNIT/ML Solution Pen-injector 60 units Subcutaneous Albuterol Sulfate HFA 108 (90 Base) MCG/ACT Aerosol Solution 2 puffs as needed Inhalation every 4 hrs Symbicort 160-4.5 MCG/ACT Aerosol 2 puffs Inhalation twice a day Taking Aspir-Low 81 MG Tablet Delayed Release 1 tablet Orally Once a day Taking Clobetasol Propionate 0.05 % Cream 1 application Externally Twice a day Taking Sertraline HCl 100MG Tablet take 1 tablet by mouth once daily for 90 days Orally Once a day Taking Vitamin D3 125 MCG (5000 UT) Capsule 1 tablet Orally Once a day Taking Rosuvastatin Calcium 40 MG Tablet 1 tablet Orally Once a day Taking Lisinopril-hydroCHLOROthiazide 20-12.5 MG Tablet take 2 tablet by mouth once daily for 90 days Orally Once a day Taking amLODIPine Besylate 10 MG Tablet 1 tablet Orally Once a day Taking HumaLOG KwikPen 100 UNIT/ML Solution Pen-injector 60 units Subcutaneous Taking Albuterol Sulfate HFA 108 (90 Base) MCG/ACT Aerosol Solution 2 puffs as needed Inhalation every 4 hrs Taking Symbicort 160- 4.5 MCG/ACT Aerosol 2 puffs Inhalation twice a day Not-Taking/PRNPaxlovid (300/100) 20 x 150 MG & 10 x 100MG Tablet Therapy Pack 2 tabs of nirm and 1 tab sukhjinder Orally twice Vitamin D3 50 MCG (2000 UT) Capsule 1 capsule Orally Once a day Valtrex 1 GM Tablet 1 tablet Orally 3 times a day Ibuprofen 800 MG Tablet 1 tablet with food or milk as needed Orally Three times a day Not-Taking/PRN Paxlovid (300/100) 20 x 150 MG & 10 x 100MG Tablet Therapy Pack 2 tabs of nirm and 1 tab sukhjinder Orally twice Not- Taking/PRN Vitamin D3 50 MCG (2000 UT) Capsule 1 capsule Orally Once a day Not-Taking/PRN Valtrex 1 GM Tablet 1 tablet Orally 3 times a day Not-Taking/PRN Ibuprofen 800 MG Tablet 1 tablet with food or milk as needed Orally Three times a day DiscontinuedpredniSONE 10 MG Tablet 1 tablet with food or milk Orally 4 tabs for 3 days,3tabs for 3 days, 2 tabs for 3 days, and 1 tab for 3 days Zithromax Z-Fred 250 MG Tablet 2 tablet on the first day, then 1 tablet daily for 4 days Orally Once a day Medication List reviewed and reconciled with the patientDiscontinued predniSONE 10 MG Tablet 1 tablet with food or milk Orally 4 tabs for 3 days,3tabs for 3 days, 2 tabs for 3 days, and 1 tab for 3 days Discontinued Zithromax Z-Fred 250 MG Tablet 2 tablet on the first day, then 1 tablet daily for 4 days Orally Once a day Medication List reviewed and reconciled with the patient * Allergies:?Bactrim: low plat eletsPenicillin G Benzathine: hivesTrulicity: pancreatitisyes[Allergies Verified] Objective: * Vitals:?Ht: 64, Wt: 235, BMI :40.33, BP:168/80, Repeat BP:160/80, Wt-k.6. weight is? up 2 pounds since 11-13-24. * Examination: ???General Examination: ?GENERAL APPEARANCE:?alert, well hydrated, in no distress with repetitive coughing.?HEAD:?normocephalic.?SKIN:?good turgor.?HEART:?no murmurs, rubs, gallops, regular rate and rhythm.?LUNGS:?good air movement, no wheezes, rales, rhonchi, clear to auscultation bilaterally.? Assessment: * Assessment: 1.?Persistent cough for 3 we eks or longer - R05.3 (Primary)???2.?Type 2 diabetes mellitus without complications - E11.9???3.?Essential hypertension - I10??? Plan: * Treatment: 2.?Type 2 diabetes mellitus without complications? Continue HumaLOG KwikPen Solution Pen-injector, 100 UNIT/ML, 60 units, Subcutaneous.?? Notes: doing well but with the increasing weight may be a candidate for ozempic, will continue current regiment in the meantime?? 3.?Essential hypertension? Continue Lisinopril-hydroCHLOROthiazide Tablet, 20-12.5 MG, take 2 tablet by mouth once daily for 90 days, Orally, Once a day;?Continue amLODIPine Besylate Tablet, 10 MG, 1 tablet, Orally, Once a day.?? Notes: running a little high today, will contiue curent regiment and will contiue to monitor?? * Procedure Codes:? * Follow Up:?4 Weeks * * Sign off status: Completed true * Provider:?Ilir Hodge MD Date:?0 11/27/2024 Generated for Valentin medina/Alexia/eTransmitting on:?12/13/2024 09:58 AM EDT History and Physical Notes * HPI (History of Present Illness) Category Sub-Category Detail Notes Category Not es Symptom(s) patient is a 64 yo female here for 2 week follow up visit/ still with cough; prednisone and z pack didn't work. Examination Category Sub-Category Detail Notes Category Not es General Examination GENERAL APPEARANCE: alert, w ell hydrated, in no distress with repetitive coughing HEAD: normocephalic HEART: no murmurs, rubs, ga llops, regular rate and rhythm LUNGS: good air movement, n o wheezes, rales, rhonchi, clear to auscultation bilaterally SKIN: good turgor
--- OUTSIDE RECORDS SUMMARY | 2024-12-13 09:59 | XMS_ITS ---
Author Organization Ilir Hodge MD Address [address] [place] [phone] Care Team Providers Care Licensed Optician Name Role Phone Ilir Hodge Primary Care Provider [phone] Allergies Allergen (clinical drug ingredient) Drug/Non Drug Allergy documented on EMR Reaction Allergy Type Onset Date Status dulaglutide Trulicity pancreatitis Drug Allergy Ac tive Penicillin G Benzathine hives Drug Allergy Active sulfamethoxazole / trimethoprim Bactrim low platelets Drug Allergy Active Reason For Referral Reason Bronchitis Diagnosis 1 Bronchitis (J40) Referral Organization Ilir Hodge MD Referring Provider First Name Ilir Referring Provider Last Name Ayesha Referring Provider Speciality Internal M edicine Referred Provider DREW, MOHAMMAD Referred Provider Specialty Pulmonary [facility] Notes Penny Saenz 0 11/13/2024 08:31:51 AM > referral info faxed Penny Saenz 12/07/2024 03:03:49 PM > appt is in the [place] office, patient is aware of appointment Referral Priority Routine Referral Appointment Date 12/13/2024 REASON FOR VISIT 1 week chest x-ray Medications Medication SIG (Take, Route, Frequency, Duration) Notes Start Date End Date Status Valtrex 1 GM 1 tablet Orally 3 [...] Orally Three times a day 09/01/2019 Not-Taking predniSONE 10 MG 1 tablet with food o r milk Orally 4 tabs for 3 days,3tabs for 3 days, 2 tabs for 3 days, and 1 tab for 3 days for 14 days 11/06/2024 Active HumaLOG KwikPen 100 UNIT/ML 60 units Subcutaneous Active amLODIPine Besylate 10 MG 1 tablet Orally Once a day for 90 days 10/24/2019 Active Lisinopril-hydroCHLOROth iazide 20-12.5 MG take 2 tablet by mouth once daily for 90 days Orally Once a day Active Rosuvastatin Calcium 40 MG 1 tablet Orally Once a day Active Clobetasol Propionate 0.05 % 1 application Externally Twice a day for 10 day(s) 03/10/2021 Active Aspir-Low 81 MG 1 tablet Orally Once a day for 30 day(s) Active Vitamin D3 125 MCG (5000 UT) 1 tablet Orally Once a day 11/05/2017 Active Zithromax Z-Fred 250 MG 2 tablet on the irst day, then 1 tablet daily for 4 days Orally Once a day for 5 day(s) 11/13/2024 Active Sertraline HCl 100MG take 1 tablet by tn uth once daily for 90 days Orally Once a day for 90 days Active Symbicort 160-4.5 MCG/ACT 2 puffs Inhalation twice a day for 30 days 11/13/2024 Active Vital Signs Blood pressure systolic 158 mm Hg 11/14/19 25 Blood pressure diastolic 90 mm Hg 025 Height 64 in 11/13/2024 Weight 233 lbs 11/13/2024 BMI 39.99 kg/m2 11/13/2024 Encounters Encounter Location Date Provider Diagnosis Ilir Hodge MD [address] [place] [address] [place] [phone] 11/13/2024 Ilir Hodge Bronchitis J40 Assessments Encounter Date Diagnosis (ICD Code) Assessment Notes Treatment Notes Treatment Clinical Notes Section Notes 11/13/2024 Bronchitis (ICD-10 - J40) patient verba;ized understanding of medication and dirctions for use Plan Of Treatment Medication Medication Name Sig Start Date Stop Date Notes Zithromax Z-Fred 250 MG 2 tablet on the f irst day, then 1 tablet daily for 4 days Orally Once a day for 5 day(s) 11/13/2024 Symbicort 160-4.5 MCG/ACT 2 puffs Inhala tion twice a day for 30 days 11/13/2024 Treatment Notes Assessment Notes Bronchitis patient verba;ized u nderstanding of medication and dirctions for use Referrals Referral Date Details 11/13/2024 11/13/2024, Bronchit is, BETH RUSSELL Next Appt Details Follow Up: 2 Weeks, Reason: Provider Name:Ilir alford, 12/28/2024 07:45:00 AM, [address] [place] [address], [address] [place] [address], [phone], Provider Name:Ilir alford, 01/08/2025 07:30:00 AM, [address] [place] [address], [address] [place] [address], [phone], Provider Name:Ilir alford, 01/15/2025 09:30:00 AM, [address] [place] [address], Suite [facility], [place], [place], [phone], Progress Notes * SAVANNAH SIFUENTES EDOB: [birth year] (64 yo F)Acc No.[id number]:11/13/2024 Patient:?SAVANNAH SIFUENTES Provider:?Ilir Hodge MD :1960???Age:64 Y???Sex:Female D ate:11/13/2024 Address:[address] [place] [address] [id number] Subjective: * Chief Complaints: * ???1 week chest x-ray * HPI: ???Symptom(s):?patientis a 64 yo female here for ne week follow up of? recent chest xray. * ROS:?General/Constitutional:?Denies?Chills.?Denies?Fatigue.?Denies?Fever.?Denies?Headache.?ENT:?Patient denies?decreased sense of smell, any loss of taste, sore throat.?Denies?Sinus pain.?Respiratory:?Admits?Cough.?Denies?Shortness of breath at rest.?Denies?Shortness of breath with [...] 100 UNIT/ML Solution Pen-injector 60 units Subcutaneous predniSONE 10 MG Tablet 1 tablet with food or milk Orally 4 tabs for 3 days,3tabs for 3 days, 2 tabs for 3 days, and 1 tab for 3 days Albuterol Sulfate HFA 108 (90 Base) MCG/ACT Aerosol Solution 2 puffs as needed Inhalation every 4 hrs Taking Aspir-Low 81 MG Tablet Delayed Release [...] UNIT/ML Solution Pen-injector 60 units Subcutaneous Taking predniSONE 10 MG Tablet 1 tablet with food or milk Orally 4 tabs for 3 days,3tabs for 3 days, 2 tabs for 3 days, and 1 tab for 3 days Taking Albuterol Sulfate HFA 108 (90 Base) MCG/ACT Aerosol Solution 2 puffs as needed Inhalation every 4 hrs Not-Taking/PRNPaxlovid (300/100) 20 x 150 MG & [...] as needed Orally Three times a day Medication List reviewed and reconciled with the patientNot-Taking/PRN Paxlovid (300/100) 20 x 150 MG & 10 x 100MG Tablet Therapy Pack 2 tabs of nirm and 1 tab sukhjinder Orally twice Not-Taking/PRN Vitamin D3 50 MCG (2000 UT) Capsule 1 capsule Orally Once a day Not-Taking/PRN Valtrex 1 GM Tablet 1 tablet Orally 3 times a day Not- Taking/PRN Ibuprofen 800 MG Tablet 1 tablet with food or milk as needed Orally Three times a day Medication List reviewed and reconciled with the patient * Allergies:?Bactrim: low plat eletsPenicillin G Benzathine: hivesTrulicity: pancreatitisyes[Allergies Verified] Objective: * Vitals:?Ht: 64, Wt: 233, BMI :39.99, BP:158/90, Wt-k.69. * Examination: ???General Examination: ?GENERAL APPEARANCE:?alert, well hydrated, in no distress.?SKIN:?good turgor.?HEART:?no murmurs, rubs, gallops, regular rate and rhythm.?LUNGS:?clear to auscultation bilaterally, good air movement, no wheezes, rales, rhonchi.?EXTREMITIES:?trace edema.? Assessment: * Assessment: 1.?Bronchitis - J40 (Primary )??? Plan: * Treatment: * Procedure Codes:? * Follow Up:?2 Weeks * * Sign off status: Completed true * Provider:?Ilir Hodge MD Date:?0 11/13/2024 Generated for Valentin medina/Alexia/Amberitting on:?12/13/2024 09:59 AM EDT History and Physical Notes * HPI (History of Present Illness) Category Sub-Category Detail Notes Category Not es Symptom(s) patientis a 64 yo female here for ne week follow up of recent chest xray. Examination Category Sub-Category Detail Notes Category Not es General Examination GENERAL APPEARANCE: alert, w ell hydrated, in no distress HEART: no murmurs, rubs, ga llops, regular rate and rhythm LUNGS: clear to auscultatio n bilaterally, good air movement, no wheezes, rales, rhonchi SKIN: good turgor EXTREMITIES: trace edema Consultation Request Notes Referral Date Referring Provider Referred Provider Not es 11/13/2024 Ilir Hodge MOHAMMAD Bronchit is
--- OUTSIDE RECORDS SUMMARY | 2024-12-13 09:59 | XMS_ITS ---
Author Organization Ilir Hodge MD Address [address] [place] [phone] Care Team Providers Care Whizzer Operator Name Role Phone Ilir Hodge Primary [...] Sertraline HCl 100MG take 1 tablet by mt ut once daily for 90 days Orally [...] Location Date Provider Diagnosis Ilir Hodge MD [address] [place] [address] [place] [phone] 11/06/2024 Ilir Hodge Type 2 diabetes mellitus without [...] Up: 1 Week, Reason: Provider Name:Ilir alford, 12/28/2024 07:45:00 AM, [address] [place] [address], [address] [place] [address], [phone], Provider Name:Ilir alford, 01/08/2025 07:30:00 AM, [address] [place] [address], [address] [place] [address], [phone], Provider Name:Ilir alford, 01/15/2025 09:30:00 AM, [address] [place] [address], [address] [place] [address], [phone], Progress Notes * SAVANNAH SIFUENTES EDOB: [birth year] (64 yo F)Acc No.[id number]:11/06/2024 Progress Notes Patient:SAVANNAH RODNEY Provider:?Ilir Hodge MD :1960???Age:64 Y???Sex:Female D ate:11/06/2024 Address:[address] [place], [place] [address]Beatris [id number] Subjective: * Chief Complaints: * ???2 MO F/U c/o cough x 4 we eks * HPI: ???Symptom(s):?patient is a 64 yo [...] Cream 1 application Externally Twice a day Albuterol Sulfate HFA 108 (90 Base) MCG/ACT Aerosol Solution 2 puffs as needed Inhalation every 4 hrs Sertraline HCl 100MG Tablet take 1 tablet [...] 1 application Externally Twice a day Taking Albuterol Sulfate HFA 108 (90 Base) MCG/ACT Aerosol Solution 2 puffs as needed Inhalation every 4 hrs Taking Sertraline HCl 100MG Tablet take 1 [...] pancreatitisyes[Allergies Verified] Objective: * Vitals:?Ht: 64, Wt: 231, BMI [...] medication and directions for use?? * Procedure Codes:?34394 ASSAY , GLUCOSE, BLOOD QUANT, Modifiers: QW 48658 GLYCATED HEMOGLOBIN TEST, Modifiers: QW * Follow Up:?1 Week * * Sign off status: Completed true * Provider:?Ilir Hodge MD Date:?0 11/06/2024 Generated for Lisai adam/Alexia/eTransmitting on:?12/13/2024 09:58 AM EDT History and Physical [...]
== END 2024-12-13 09:55 | disposition home or self-care (01) ==
PROVIDERS: PCP Internal Medicine; Referring Provider Internal Medicine; Visit Provider Nurse Practitioner Family
DX: J45.909 Unspecified asthma, uncomplicated (principal); R05.3 Chronic cough; Z91.09 Other allergy status, other than to drugs and biological substances; L50.1 Idiopathic urticaria
CPT/HCPCS: 99204

== ENCOUNTER → 2024-12-13 09:11 | Outpatient (BNVA) | payer MEDICARE, SELFPAY | PROVIDERS: PCP Internal Medicine; Referring Provider Internal Medicine; Visit Provider Nurse Practitioner Family | DX: Z13.89 Encounter for screening for other disorder (principal) | CPT/HCPCS: 99202 ==

== ENCOUNTER 2024-12-13 10:13 | Outpatient (REF) | payer MEDICARE, SELFPAY ==
[2024-12-13 11:23] LABS: MANUAL DIFF FLAG NO
[2024-12-13 11:31] LABS: Eosinophils Absolute Auto 0.2 X10*3/uL (0.0-0.4); Eosinophils Percent Auto 2.7 % (0-4); Hemoglobin 14.1 g/dl (12.0-16.0); Imm Gran Abs Auto 0.02 X10*3/uL (0.00-0.03); Imm Gran Pct Auto 0.3 % (0.0-0.4); Lymphocytes Percent Auto 32.2 % (20-40); Mean Corpuscular HGB Conc 32.8 g/dl (31.0-35.0); Mean Corpuscular Hemoglobin 29.4 pg (27.0-33.0); Mean Corpuscular Volume 89.6 fL (80.0-98.0); Mean Platelet Volume 10.2 fL (9.4-12.3); Monocytes Absolute Auto 0.4 X10*3/uL (0.1-1.2); Monocytes Percent Auto 6.3 % (2-11); Neutrophils Absolute Auto 3.6 x10*3/uL (2.0-8.3); Neutrophils Percent Auto 58.5 % (45-73); Platelet Count 354 X10*3/uL (160-400); Red Cell Distribution Width 12.7 % (11.0-16.0); White Blood Count 6.2 X10*3/uL (4.8-10.8)
[2024-12-14 07:28] LABS: Immunoglobulin E 7 kU/L (<OR=114)
[2024-12-19 19:42] LABS: Class Alternaria alternata 0; Class Aspergillus fumigatus 0; Class Bermuda Grass 0; Class Birch 0; Class Cat Dander 0; Class Cladosporium herbarum 0; Class Cockroach 0; Class Common Ragweed 0; Class Cottonwood 0; Class Derm. pterony 0; Class Dermatophagoides farinae 0; Class Dog Dander 0; Class Elm 0; Class Maple Box Elder 0; Class Mountain Cedar 0; Class Mouse Urine Protein 0; Class Mugwort 0; Class Oak 0; Class Penicillium crysogenum 0; Class Rough Pigweed 0; Class Sheep Sorrel 0; Class Sycamore 0; Class Timothy Grass 0; Class Walnut Tree 0; Class White Ash 0; Class White Mulberry 0; D001 IgE D pteronyssinus <0.10 kU/L; D002 - IgE D farinae <0.10 kU/L; E001 - IgE Cat Dander <0.10 kU/L; E005 - IgE Dog Dander <0.10 kU/L; E072-IgE Mouse Urine <0.10 kU/L; G002 IgE Bermuda Grass <0.10 kU/L; G006 - IgE Timothy Grass <0.10 kU/L; I006-IgE Cockroach, German <0.10 kU/L; Immunoglobulin E 10 kU/L (<OR=114); M001 IgE Penicillium chrysogen <0.10 kU/L; M002 - IgE Cladosporium herbar <0.10 kU/L; M003 - IgE Aspergillus fumigat <0.10 kU/L; M006 - IgE Alternaria alternat <0.10 kU/L; T001 IgE Maple/Box Elder <0.10 kU/L; T003 IgE Common Silver Birch <0.10 kU/L; T006 - IgE Cedar, Mountain <0.10 kU/L; T007 - IgE Oak, White <0.10 kU/L; T008 IgE Elm, American <0.10 kU/L; T010 - IgE Walnut <0.10 kU/L; T011 - IgE Maple Leaf Sycamore <0.10 kU/L; T014 - IgE Cottonwood <0.10 kU/L; T015 - IgE Ash, White <0.10 kU/L; T070 - IgE White Mulberry <0.10 kU/L; W001 - IgE Ragweed, Short <0.10 kU/L; W006 - IgE Mugwort <0.10 kU/L; W014 IgE Pigweed, Common <0.10 kU/L; W018 IgE Sheep Sorrel <0.10 kU/L
== END 2024-12-13 10:14 | disposition home or self-care (01) ==
LOC: HO.WFDLDS 10:13
PROVIDERS: Visit Provider Nurse Practitioner Family
DX: Z91.09 Other allergy status, other than to drugs and biological substances (principal)
CPT/HCPCS: 36415; 82785; 85025; 86003; 99202

== ENCOUNTER 2025-01-08 11:55 | Outpatient (REF) | payer MEDICARE, SELFPAY ==
[2025-01-08 11:58] LABS: MANUAL DIFF FLAG NO
[2025-01-08 12:02] LABS: Appearance Urine Hazy; Color Urine Yellow; Glucose Urine UA Negative (Negative); Leukocyte Esterase Urine Negative (Negative); Nitrite Urine Negative (Negative); Specific Gravity - Urine 1.025 (1.005-1.025); UMIC TRIGGER UACC YES; Urine Blood Negative (Negative); Urine Ketones Negative (Negative); Urine Protein 30 (1+) mg/dL (Neg-Trace)
[2025-01-08 12:08] LABS: Eosinophils Absolute Auto 0.3 X10*3/uL (0.0-0.4); Hematocrit 43.7 % (37.0-47.0); Hemoglobin 14.1 g/dl (12.0-16.0); Imm Gran Abs Auto 0.02 X10*3/uL (0.00-0.03); Imm Gran Pct Auto 0.3 % (0.0-0.4); Lymphocytes Absolute Auto 1.8 X10*3/uL (1.2-4.9); Lymphocytes Percent Auto 28.2 % (20-40); Mean Corpuscular HGB Conc 32.3 g/dl (31.0-35.0); Mean Corpuscular Hemoglobin 29.3 pg (27.0-33.0); Mean Corpuscular Volume 90.9 fL (80.0-98.0); Mean Platelet Volume 10.3 fL (9.4-12.3); Monocytes Absolute Auto 0.4 X10*3/uL (0.1-1.2); Monocytes Percent Auto 5.7 % (2-11); Neutrophils Percent Auto 61.8 % (45-73); Platelet Count 319 X10*3/uL (160-400); Red Blood Count 4.81 X10*6/uL (4.20-5.50); Red Cell Distribution Width 12.7 % (11.0-16.0); White Blood Count 6.5 X10*3/uL (4.8-10.8)
[2025-01-08 12:12] LABS: RBC Urine 0-2 /HPF (0-2); Squamous Epithelial Cell Urine 0-2 /HPF (0-2); WBC Urine 0-5 /HPF (0-5)
[2025-01-08 12:13] LABS: Bacteria Urine 1+ (None Seen); Hyaline Casts Urine 0-2 /LPF (0-2)
[2025-01-08 12:30] LABS: Creatinine Urine 177.53 mg/dL
--- OUTSIDE RECORDS SUMMARY | 2025-01-08 12:34 | XMS_ITS ---
Author Organization Ilir Hodge MD Address [address] [place] [phone] Care Team Providers Care Blow Down Operator Name Role Phone Ilir Hodge Primary Care Provider Results Component Value Reference Range Notes Complete Blood Count Auto Di ff (Not yet reviewed by provider) Interpretation: Performing Lab:[facility], [address] [place] [phone] Notes/Report: White Blood Count 6.5 4.8-10.8 X10*3/uL [...] X10*3/uL NRBC Abs Auto 0.000 0.0-0.012 X10*3/uL UA ClnCatch+Micro w/rflx Cul t (Not yet reviewed by provider) Interpretation: Performing Lab:[facility], [address] [place] [phone] Notes/Report: Urine, Clean Catch Color Urine Yellow Appearance Urine Hazy PH 6.0 5.0-9.0 Glucose Urine UA Negative Negative mg/dL Urine Blood Negative Negative Specific [place] - Urine 1.025 1.005-1.025 Urine Protein 30 (1+) Neg-Trace mg/dL Urine Ketones Negative Negative mg/dL Nitrite Urine Negative Negative Leukocyte Esterase Urine Negative Negative RBC Urine 0-2 0-2 /HPF WBC Urine 0-5 0-5 /HPF Squamous Epithelial Cell Urine 0-2 0-2 /HPF Bacteria Urine 1+ None Seen Hyaline Casts Urine 0-2 0-2 /LPF Microalbumin, Random Reviewed date:01/08/2025 12:34:10 PM Interpretation: Performing Lab:[facility], [address] [place] [address], [place] [phone] Notes/Report: Creatinine Urine 177.53 Microalbumin Urine 293.0 Microalbum/Creatinine Ratio Ur 165.0 <30 ug/mg cr Albumin/Creatinine Ratio Reference Ranges: Normal: < 30 ug/mg creatinine Microalbuminuria: 30 - 300 ug/mg creatinine Clinical Albuminuria: > 300 ug/mg creatinine REASON FOR VISIT FASTING LABS Encounters Encounter Location Date Provider Diagnosis Ilir Hodge MD [address] [place] [address] Drive [address] [place] [phone] 01/08/2025 Ilir Hodge Blood tests for rout [...] deficiency (ICD-10 - E55.9) Plan Of Treatment Pending Test Test Name Order Date Complete Blood Count Auto Diff Comprehensive [place]. Panel Fast 5 Lipid Panel 01/08/2025 Vitamin D 25-OH Total 01/08/2025 Hemoglobin A1c 01/08/2025 UA ClnCatch+Micro w/rflx Cult 01/08/2025 Next Appt Details Provider Name:Ilir alford, 01/15/2025 09:30:00 AM, [address] [place] [address] Drive, Suite [facility], [place], [place], [phone], Progress Notes * SAVANNAH SIFUENTES EDOB: 9 (64 yo F)Acc No.[id number]:01/08/2025 Progress Note Patient:?SAVANNAH SIFUENTES Provider:?Ilir Hodge MD :1960???Age:64 Y???Sex:Female D ate:01/08/2025 Address:[facility] [id number] Subjective: * Chief Complaints: * ???1. FASTING LABS. * Medical History:? Objective: * Vitals:? Assessment: * Assessment: 1.?Blood tests for routine g eneral physical examination - Z00.00 (Primary)???2.?Essential hypertension - I10???3.?Pure hypercholesterolemia - E78.00???4.?Type 2 diabetes mellitus without complications - E11.9???5.?Vitamin D deficiency - E55.9??? Plan: * Treatment: 2.?Essential hypertension?LAB: Complete Blood Count Auto Diff (Collection Date & Time - 01/08/2025 07:30 AM) ?LAB: Comprehensive [place]. Panel Fast ?LAB: Lipid Panel ?LAB: Vitamin D 25-OH Total ?LAB: Hemoglobin A1c ?LAB: UA ClnCatch+Micro w/rflx Cult (Collection Date & Time - 01/08/2025 07:30 AM) ?LAB: Microalbumin, Random (Collection Date & Time - 01/08/2025 07:30 AM) 3.?Pure hypercholesterolemia ?LAB: Complete Blood Count Auto Diff (Collection Date & Time - 01/08/2025 07:30 AM) ?LAB: Comprehensive [place]. Panel Fast ?LAB: Lipid Panel ?LAB: Vitamin D 25-OH Total ?LAB: Hemoglobin A1c ?LAB: UA ClnCatch+Micro w/rflx Cult (Collection Date & Time - 01/08/2025 07:30 AM) ?LAB: Microalbumin, Random (Collection Date & Time - 01/08/2025 07:30 AM) 4.?Type 2 diabetes mellitus without complications?LAB: Complete Blood Count Auto Diff (Collection Date & Time - 01/08/2025 07:30 AM) ?LAB: Comprehensive [place]. Panel Fast ?LAB: Lipid Panel ?LAB: Vitamin D 25-OH Total ?LAB: Hemoglobin A1c ?LAB: UA ClnCatch+Micro w/rflx Cult (Collection Date & Time - 01/08/2025 07:30 AM) ?LAB: Microalbumin, Random (Collection Date & Time - 01/08/2025 07:30 AM) 5.?Vitamin D deficiency?LAB: Complete Blood Count Auto Diff (Collection Date & Time - 01/08/2025 07:30 AM) ?LAB: Comprehensive [place]. Panel Fast ?LAB: Lipid Panel ?LAB: Vitamin D 25-OH Total ?LAB: Hemoglobin A1c ?LAB: UA ClnCatch+Micro w/rflx Cult (Collection Date & Time - 01/08/2025 07:30 AM) ?LAB: Microalbumin, Random (Collection Date & Time - 01/08/2025 07:30 AM) * Procedure Codes:?84851 VENIP UNCT, ROUTINE* * * The named appointment provid er may or may not be the originator of this progress note, and it is not deemed complete until electronically signed by the appointment provider. Sign off status: Pending * Provider:?Ilir Hodge MD Date:?0 01/08/2025 Generated for Valentin medina/Alexia/eTjayitting on:?01/08/2025 12:34 PM EDT
--- OUTSIDE RECORDS SUMMARY | 2025-01-08 12:34 | XMS_ITS ---
Author Organization Ilir Hodge MD Address [address] [place] [phone] Care Team Providers Care Concrete Mixing Plant Laborer Name Role Phone Ilir Hodge Primary Care Provider [phone] Allergies Allergen (clinical drug ingredient) Drug/Non Drug [...] Sertraline HCl 100MG take 1 tablet by [facility] once daily for 90 days Orally Once [...] Location Date Provider Diagnosis Ilir Hodge MD [address] [place] [address] Drive [address] [place], [place] [phone] 11/27/2024 Ilir Hodge Persistent cough for 3 [...] Up: 4 Weeks, Reason: Provider Name:Ilir alford, 01/15/2025 09:30:00 AM, [address] [place] [address], [address], [place], [place], [phone], Progress Notes * SAVANNAH SIFUENTES EDOB: (64 yo F)Acc No.[id number]:11/27/2024 Progress Notes Patient:?SAVANNAH SIFUENTES Provider:?Ilir Hodge MD :1960???Age:64 Y???Sex:Female D ate:11/27/2024 Address:[address] [place] [address] Louise[place]y [phone] Subjective: * Chief Complaints: * ???2 WEEK [...] Provider:?Ilir Hodge MD Date:?0 11/27/2024 Generated for Lisai adam/Alexia/eTransmitting on:?01/08/2025 12:34 PM EDT History and Physical Notes * [...]
--- OUTSIDE RECORDS SUMMARY | 2025-01-08 12:35 | XMS_ITS | Patient Health Record ---
Author Organization Ilir Hodge MD Address [address] [place], [place] [id number] Care Team Providers Care Pourer Bull Ladle Name Role Phone Ilir Hodge Primary Care [...] Interpretation: Performing Lab: Notes/Report: Hemoglobin A1c 8.9 Liver Panel Reviewed date:07/06/2024 04:44:07 PM Interpretation: Performing Lab:[facility], [address] [place] [phone] Notes/Report: Bilirubin Total 1.0 0.0-1.0 mg/dL Bilirubin Direct 0.3 0.0-0.5 mg/dL Aspartate Amino Transferase 34 5-31 U/L Alanine Aminotransferase 23 0-31 U/L Total Protein 7.1 6.5-8.0 g/dL Albumin Level 4.0 3.5-5.0 g/dL Alkaline Phosphatase 80 39-117 U/L Glucose Fasting Reviewed date:07/06/2024 04:39:33 PM Interpretation: Performing Lab:[facility], [address] [place] [phone] Notes/Report: Glucose Fasting 103 60-99 mg/dL A fasting glucose from 100-125 mg/dl is considered impaired (pre-diabetes). Lipid Panel with Reflex Reviewed date:07/06/2024 04:43:47 PM Interpretation: Performing Lab:[facility], [address] [place] [phone] Notes/Report: Triglycerides 105 <150 mg/dL Desirable Triglyceride: [...] A1c Reviewed date:07/06/2024 12:27:15 PM Interpretation: Performing Lab:[facility], [address] [place] [phone] Notes/Report: Hemoglobin A1c % 6.7 <6.0 % [...] average glucose, using the formula of the Y8O-Jzluugp Average Glucose study (ADAG), Diabetes Care, Vol.31,#8, Mar. 2007 Complete Blood Count Auto Di ff (Not yet reviewed by provider) Interpretation: Performing Lab:[facility], [address] [place] [phone] Notes/Report: White Blood Count 6.5 4.8-10.8 X10*3/uL [...] 0.0-0.2 /100WBC Neutrophils Absolute Auto 4.0 2.0-8.3 x10*3/uL Imm Gran Abs Auto 0.02 0.00-0.03 X10*3/uL Lymphocytes Absolute Auto 1.8 1.2-4.9 X10*3/uL Monocytes Absolute Auto 0.4 0.1-1.2 X10*3/uL Eosinophils Absolute Auto 0.3 0.0-0.4 X10*3/uL Basophils Absolute Auto 0.0 0.0-0.2 X10*3/uL NRBC Abs Auto 0.000 0.0-0.012 X10*3/uL UA ClnCatch+Micro w/rflx Cul t (Not yet reviewed by provider) Interpretation: Performing Lab:[address] [address] Notes/Report: Urine, Clean Catch Color Urine Yellow Appearance Urine Hazy PH 6.0 5.0-9.0 Glucose Urine UA Negative Negative mg/dL Urine Blood Negative Negative Specific [place] - Urine 1.025 1.005-1.025 Urine Protein 30 (1+) Neg-Trace mg/dL Urine Ketones Negative Negative mg/dL Nitrite Urine Negative Negative Leukocyte Esterase Urine Negative Negative RBC Urine 0-2 0-2 /HPF WBC Urine 0-5 0-5 /HPF Squamous Epithelial Cell Urine 0-2 0-2 /HPF Bacteria Urine 1+ None Seen Hyaline Casts Urine 0-2 0-2 /LPF Microalbumin, Random Reviewed date:01/08/2025 12:34:10 PM Interpretation: Performing Lab:[facility], [address] [place] [phone] Notes/Report: Creatinine Urine 177.53 Microalbumin Urine 293.0 Microalbum/Creatinine Ratio Ur 165.0 <30 ug/mg cr Albumin/Creatinine Ratio Reference Ranges: Normal: < 30 ug/mg creatinine Microalbuminuria: 30 - 300 ug/mg creatinine Clinical Albuminuria: > 300 ug/mg creatinine Glucose, finger stick Reviewed date:11/06/2024 09:00:09 AM Interpretation: Performing Lab: Notes/Report: Value 90 Glucose, Whole Blood Reviewed date:02/09/2024 08:35:24 PM Interpretation: Performing Lab:[facility], [address] [place] [phone] Notes/Report: Glucose, Whole Blood 144 60-115 mg/dL METER #: [id number] Testing performed in the [facility] Rosalia Horta [address] [facility]. Glucose, Whole Blood Reviewed date:06/14/2024 02:17:33 PM Interpretation: Performing Lab:[address] [phone] Notes/Report: Glucose, Whole Blood 139 60-115 mg/dL METER #: [id number] Testing performed in the [facility] , [address], [facility]. Lipid Panel Reviewed date:07/03/2024 11:07:17 AM Interpretation: Performing Lab:[address] [address] Notes/Report: Triglycerides 117 <150 mg/dL Desirable Triglyceride: [...] Thyroxine) Reviewed date:07/03/2024 11:15:23 AM Interpretation: Performing Lab:[address] [address] Notes/Report: Free T4 (Free Thyroxine) 1.14 0.71-1.85 ng/dL Thyroid Stimulating Hormone Reviewed date:07/03/2024 11:15:32 AM Interpretation: Performing Lab:[facility], [address] [place] [phone] Notes/Report: Thyroid Stimulating Hormone 1.60 0.32-4.0 uIU/mL TSH 3rd Generation ([facility]) Microalbumin, Random Reviewed date:07/03/2024 11:15:50 AM Interpretation: Performing Lab:[address] [address] Notes/Report: Creatinine Urine 155.38 Microalbumin Urine 462.0 Microalbum/Creatinine Ratio Ur 297.3 <30 ug/mg cr Albumin/Creatinine Ratio Reference Ranges: Normal: < 30 ug/mg creatinine Microalbuminuria: 30 - 300 ug/mg creatinine Clinical Albuminuria: > 300 ug/mg creatinine Hold Gold Reviewed date:07/06/2024 12:26:46 PM Interpretation: Performing Lab:[facility], [address] [place] [phone] Notes/Report: Luis A Garza See Note Specimen held untested for 24 hours; Call to request Chemistry testing. Complete Blood Count Auto Di ff Reviewed date:08/14/2024 02:07:47 PM Interpretation: Performing Lab:[facility], [address] [place] [phone] Notes/Report: White Blood Count 7.2 4.8-10.8 X10*3/uL [...] Panel Reviewed date:08/14/2024 02:07:32 PM Interpretation: Performing Lab:[facility], [address] [place] [phone] Notes/Report: Bilirubin Total 0.7 0.0-1.0 mg/dL Bilirubin Direct 0.2 0.0-0.5 mg/dL Aspartate Amino Transferase 27 5-31 U/L Alanine Aminotransferase 25 0-31 U/L Total Protein 7.1 6.5-8.0 g/dL Albumin Level 4.0 3.5-5.0 g/dL Alkaline Phosphatase 110 39-117 U/L Basic Metabolic Panel Reviewed date:08/14/2024 02:07:16 PM Interpretation: Performing Lab:[facility], [address] [place] [phone] Notes/Report: Sodium 142 135-145 mmol/L Potassium 4.3 [...] Sensitivity Reviewed date:08/14/2024 02:07:24 PM Interpretation: Performing Lab:[facility], [address] [place] [phone] Notes/Report: Troponin-I High Sensitivity 6.1 <3.5-17.0 ng/L The Romo high sensitivity Troponin-I results should be used in conjunction with other diagnostic information such as ECG, clinical observations and information, and patient symptoms to aid in the diagnosis of DC. CT head/brain wo con Reviewed date:08/15/2024 12:24:33 PM Interpretation: Performing Lab: Notes/Report: [address] [address] [address] Scan Report Signed Patient: Radha Sifuentes MR#: [id number] 93 : 1960 Acct:[id number] Age/Sex: 64 / F ADM Date: 08/14/24 Loc: HO.ED Attending Dr: Ordering Physician: Riley Cummings Date of Service: 08/14/24 Procedure(s): CT head/brain wo IV con Accession Number(s): [id number] cc: Riley Cummings; Ilir Hodge MD EXAMINATION: [...] by: Carlos Huitron MD 08/14/2024 05:48 PM [facility] Dictated By: Carlos Huitron MD Signed By: <Electronically signed by Carlos Huitron MD in OV> 08/14/24 1748 DD/ 1516 TD/TT: 08/14/24 1617 Change Control Manager: HEATH [address] [address] [address] Scan Report Signed Patient: Sandra Sifuentes MR#: [id number] 93 : 1960 Acct:[id number] Age/Sex: 64 / F ADM Date: 08/14/24 Loc: HO.ED Attending Dr: Ordering Physician: Riley Cummings Date of Service: 08/14/24 Procedure(s): CT head/brain wo IV con Accession Number(s): [id number] cc: Riley Cummings; Ilri Hodge MD EXAMINATION: CT HEAD WITHOUT CONTRAST [...] con IMPRESSION: No CT evidence of ac [place] intracranial hemorrhage or edematous territorial infarction.. Electronically raad d by: Carlos Huitron MD 08/14/2024 05:48 PM [facility] Dictated By: Carlos Huitron MD Signed By: <Electronically signed by Carlos Huitron MD in OV> 08/14/24 1748 DD/ 1516 TD/TT: 08/14/24 1617 Change Control Manager: HEATH Troponin-I High Sensitivity Reviewed date:08/14/2024 04:57:01 PM Interpretation: Performing Lab:[facility], [address] [place] [phone] Notes/Report: Troponin-I High Sensitivity 8.8 <3.5-17.0 ng/L The Romo high sensitivity Troponin-I results should be used in conjunction with other diagnostic information such as ECG, clinical observations and information, and patient symptoms to aid in the diagnosis of DC. Glucose, Whole Blood Reviewed date:09/11/2024 12:40:04 PM Interpretation: Performing Lab:[facility], [address] [place] [phone] Notes/Report: Glucose, Whole Blood 139 60-115 mg/dL METER #: [id number] Testing performed in the [facility] [place] [place] tomosynthesis screening B I Reviewed date:09/28/2024 04:55:24 PM Interpretation: Performing Lab: Notes/Report: [address] [place] [address] Mammography Report Signed Patient: Radha Sifuentes MR#: [id number] 93 : 1960 Acct:[id number] Age/Sex: 64 / F ADM Date: 09/20/24 Loc: HO.MAMMO Attending Dr: Ilir Hodge MD Ordering Physician: Ilir Hodge MD Results: 2Be nign Findings Date of Service: 09/20/24 Follow Up: 1 Year From [facility] Mammogram Procedure(s): MM tomosynthesis screening BI Accession Number(s): [id number] cc: Ilir Hodge MD EXAMINATION: MM SCREENING [...] 09/28/24 1451 DD/ 1045 TD/TT: 09/20/24 1108 Change Control Manager: Romelia [facility] [address] [place] [address] [place] [address] Mammography Report Signed Patient: Sandra Sifuentes MR#: [id number] 93 : 1960 Acct:[id number] Age/Sex: 64 / F ADM Date: 09/20/24 Loc: HO.MAMMO Attending Dr: Ilir Hodge MD Ordering Physician: Ilir Hodge MD Results: 2Be nign Findings Date of Service: 09/20/24 Follow Up: 1 Year From Orig ina Mammogram Procedure(s): MM tomosynthesis screening BI Accession Number(s): [id number] cc: Ilir Hodge MD EXAMINATION: MM SCREENING [...] 09/28/24 1451 DD/ 1045 TD/TT: 09/20/24 1108 Change Control Manager: XR chest 2V Reviewed date:11/06/2024 05:58:04 PM Interpretation: Performing Lab: Notes/Report: [address] [address] XRay Report Signed Patient: Radha Sifuentes MR#: [id number] 93 : 1960 Acct:[id number] Age/Sex: 64 / F ADM Date: 11/06/24 Loc: HO.XRAY Attending Dr: Ilir Hodge MD Ordering Physician: Ilir Hodge MD Date of Service: 11/06/24 Procedure(s): XR chest 2V Accession Number(s): [id number] cc: Ilir Hodge MD EXAMINATION: XR CHEST [...] 11/06/24 1557 DD/ 0930 TD/TT: 11/06/24 0938 Change Control Manager: [address] [address] XRay Report Signed Patient: Sandra Sifuentes MR#: [id number] 93 : 1960 Acct:[id number] Age/Sex: 64 / F ADM Date: 11/06/24 Loc: HO.XRAY Attending Dr: Ilir Hodge MD Ordering Physician: Ilir Hodge MD Date of Service: 11/06/24 Procedure(s): XR marjan st 2V Accession Number(s): [id number] cc: Ilir Hodge MD EXAMINATION: XR CHES [...] 11/06/24 1557 DD/ 0930 TD/TT: 11/06/24 0938 Change Control Manager: Glucose, Whole Blood Reviewed date:11/16/2024 12:16:53 PM Interpretation: Performing Lab:[facility], [address] [place] [phone] Notes/Report: Glucose, Whole Blood 53 60-115 mg/dL METER #: [id number] Testing performed in the [facility]inology Department and [facility] , [address], [facility]. Glucose, Whole Blood Reviewed date:11/16/2024 12:16:39 PM Interpretation: Performing Lab:[facility], [address] [place] [address] Notes/Report: Glucose, Whole Blood 93 60-115 mg/dL METER #: [id number] Testing performed in the [facility] , [address], [place]. Reason For Referral Reason Hives of unknow orig in Diagnosis 1 Hives of unknown gregg gin (L50.9) Referral Organization Ilir Hodge MD Referring Provider First Name Ilir Referring Provider Last Name Ayesha Referring Provider Speciality Internal M edicine Referred Provider COREY CHAND Referred Provider Specialty Allergy/Immu nology General Notes Penny Saenz 11:58:48 AM EST > info faxed to the [facility] p [phone] they will call patient with an appt, Penny Saenz 09/15/2024 02:42:20 PM > referral info mailed to patient Referral Priority Routine Referral Appointment Date 11/13/2024 Reason Bronchitis Diagnosis 1 Bronchitis (J40) Referral Organization Ilir Hodge MD Referring Provider First Name Ilir Referring Provider Last Name Ayesha Referring Provider Speciality Internal M edicine Referred Provider BETH RUSSELL Referred Provider Specialty Pulmonary Di seases General Notes Penny Saenz 0 11/13/2024 08:31:51 AM > referral info faxed, Penny Saenz 12/07/2024 03:03:49 PM > appt is in the [place] office, patient is aware of appointment Referral Priority Routine Referral Appointment Date 12/13/2024 Medications Medication SIG (Take, Route, Frequency, Duration) Notes Start Date End Date Status Cefpodoxime Proxetil 200 MG 1 tablet with food Orally every 12 hrs for 10 days 12/28/2024 Active Ipratropium-Albuterol 0.5-2.5 (3) MG/3ML 3 mL as needed Inhalation every 6 hrs for 30 days 12/28/2024 Active Albuterol Sulfate HFA 108 (90 Base) [...] tablet Orally Once a day 10/24/2019 Active Aspir-Low 81 MG 1 tablet Orally Once a day for 30 day(s) Active Vitamin D3 50 MCG (1999 UT) 1 capsule Orally Once a day for 30 day(s) 01/01/2022 Not-Taking Paxlovid (300/100) 20 x 150 MG & 10 x 100MG 2 tabs of nirm and 1 tab sukhjinder Orally twice for 5 days 05/15/2022 Not-Taking Sertraline HCl 100MG take 1 tablet by [facility] once daily for 90 days Orally Once a day for 90 days Active Ibuprofen 800 MG 1 tablet with food o r milk as needed Orally Three times a day 09/01/2019 Not-Taking Clobetasol Propionate 0.05 % 1 application Externally Twice a day for 10 day(s) 03/10/2021 Active Valtrex 1 GM 1 tablet Orally 3 ti mes a day for 7 days 12/17/2020 Not-Taking HumaLOG KwikPen 100 UNIT/ML 60 units Subcutaneous Active Vitamin D3 125 MCG (5000 UT) 1 tablet Orally Once a day 11/05/2017 Active Immunizations Vaccine Route Administration Date Status Comme nts Fluarix Quadrivalent IM Intramuscular 05/28/2014 Administe red Flu Vaccine IM Intramuscular 05/24/2015 Administered PPSV23 (Pnemovax) IM Intramuscular 11/22/2015 Administered Fluarix Quadrivalent IM Intramuscular 05/22/2016 Administe red Fluarix Quadrivalent IM Intramuscular 05/10/2017 Administe red Fluarix Quadrivalent IM Intramuscular 05/10/2018 Administe red Prevnar 13 IM Intramuscular 11/22/2018 Administered Fluarix Quadrivalent IM Intramuscular 05/22/2019 Administe red Covid Vaccine Unknown 10/04/2020 Administered Moderna A t work Covid Vaccine Unknown 11/01/2020 Administered Moderna TDaP Unknown 12/05/2020 Administered [facility]S PPSV23 (Pnemovax) IM Intramuscular 03/10/2021 Administered Fluarix Quadrivalent IM Intramuscular 06/10/2021 Administe red SARS-COV-2 Moderna Unknown 07/17/2021 Administered Flu Vaccine [...] Problem Status W/U Status Risk Notes Problem 498036670 Type 2 diabetes mellitus without complications (E11.9) Active confirmed Problem 11345418 Lymphocytosis (D72.820) Active confirm ed Problem 32364121 Depression (F32.9) Active confirmed Problem 77692389 Vitamin D defici ency (E55.9) Active confirmed Problem 921494409 Diverticulitis (K57.92) Active confir med Problem 696734477 Mild intermitten t asthma, uncomplicated (J45.20) Active confirmed Problem 779203624 Other specified menopausal and perimenopausal disorders (N95.8) Active confirmed Problem 820658553 Encounter for fl reening for other protozoal diseases and helminthiases (Z11.6) Active confirmed Problem 246415700 Asymptomatic men opausal state (Z78.0) Active confirmed Problem 55400901 Essential hypert ension (I10) Active confirmed Problem 50604390 Dysthymia (F34.1) Active confirmed Problem 31907134 Sciatica of righ t side (M54.31) Active confirmed Problem 393182255 Pure hypercholesterolemia (E78.00) Active confirmed Problem 874438774 Hypertensive cri sis (I16.9) Active confirmed Problem 33219205 Kidney stone on left side (N20.0) Active confirmed Problem 010989942 Screening mammog osiris for breast cancer (Z12.31) Active confirmed Vital Signs Blood pressure diastolic 76 mm Hg 12/28/2024 Height 64 in 12/28/2024 Blood pressure systolic 158 mm Hg 12/28/2024 Weight 235 lbs 12/28/2024 BMI 40.33 kg/m2 12/28/2024 Encounters Encounter Location Date Provider Diagnosis Ilir Hodge MD [address] [place] [id number] 07/06/2024 Ilir Hodge Pure hypercholestero lemia E78.00 and Type 2 diabetes mellitus without complications E11.9 Ilir Hodge MD [address] [place] [id number] 01/08/2025 Ilir Hodge Blood tests for rout ine general physical examination Z00.00 ; Essential hypertension I10 ; Pure hypercholesterolemia E78.00 ; Type 2 diabetes mellitus without complications E11.9 and Vitamin D deficiency E55.9 Ilir Hodge MD [address] [place] [id number] 01/11/2024 Ilir Hodge Essential hypertensi on I10 ; Annual physical exam Z00.00 ; Pure hypercholesterolemia E78.00 ; Type 2 diabetes mellitus without complications E11.9 ; Vitamin D deficiency E55.9 and Depression screening Z13.31 Ilir Hodge MD [address] [place] [id number] 07/14/2024 Ilir Hodge Type 2 diabetes piter itus without complications E11.9 ; Cardiac murmur R01.1 and Pure hypercholesterolemia E78.00 Ilir Hodge MD [address] [place] [id number] 08/14/2024 Ilir Hodge Type 2 diabetes piter itus without complications E11.9 ; Hypertensive crisis I16.9 and Hives of unknown origin L50.9 Ilir Hodge MD [address] [place] [id number] 08/25/2024 Ilir Hodge Type 2 diabetes piter itus without complications E11.9 ; Hives of unknown origin L50.9 and Essential hypertension I10 Ilir Hodge MD [address] [place] [id number] 09/07/2024 Ilir Hodge Type 2 diabetes piter itus without complications E11.9 and Hives of unknown origin L50.9 Ilir Hodge MD [address] [place] [id number] 11/06/2024 Ilir Hodge Type 2 diabetes piter itus without complications E11.9 and Mild intermittent asthma, uncomplicated J45.20 Ilir Hodge MD [address] [place] [id number] 11/13/2024 Ilir Hodge Bronchitis J40 Ilir Hodge MD [address] [place] [id number] 11/27/2024 Ilir Bombardier Persistent cough for 3 weeks or longer R05.3 ; Type 2 diabetes mellitus without complications E11.9 and Essential hypertension I10 Ilir Hodge MD [address] [place], [place] [id number] 12/28/2024 Ilir Hodge Type 2 diabetes piter itus without complications E11.9 and Mild intermittent asthma, uncomplicated J45.20 Assessments Encounter Date Diagnosis (ICD Code) Assessment Notes Treatment Notes Treatment Clinical Notes Section Notes 07/06/2024 Pure hypercholesterolemia (ICD-10 - E78.00) 07/06/2024 Type 2 diabetes mellitus without complications (ICD-10 - E11.9) 01/08/[address] ine general physical examination (ICD-10 - Z00.00) 01/11/2024 Essential hypertensi on (ICD-10 - I10) [...] (ICD-10 - L50.9) is going to see ve teacher in one month. 11/06/2024 Type 2 diabetes [...] before that visit/ order faxed to [facility] 12/28/2024 Type 2 diabetes mellitus without complications (ICD-10 - E11.9) 01/08/2025 Essential hypertensi on (ICD-10 - I10) 01/11/2024 Pure hypercholesterolemia (ICD-10 - E78.00) running [...] will continue current regiment in the meantime 12/28/2024 Mild intermittent asthma, uncomplicated (ICD-10 - J45.20) 01/08/2025 Pure hypercholesterolemia (ICD-10 - E78.00) 01/11/2024 Type 2 diabetes mellitus without complications (ICD-10 - E11.9) followed by dr shannon, will continue current regiment 11/27/2024 Essential hypertensi on (ICD-10 - I10) running a little high today, will contiue curent regiment and will contiue to monitor 01/08/2025 Type 2 diabetes mellitus without complications (ICD-10 - E11.9) 01/11/2024 Vitamin D deficiency (ICD-10 - E55.9) going to take vit d 01/08/2025 Vitamin D deficiency (ICD-10 - E55.9) 01/11/2024 Depression screening (ICD-10 - Z13.31) negative screen 12/28/2024 Other feels that the cef made her better and it came back after stopping Plan Of Treatment Pending Test Test Name Order Date Electrocardiogram (EKG) 10/09/2019 Electrocardiogram (EKG) 09/17/2016 Electrocardiogram (EKG) 11/05/2017 CT ABD & PELVIS NO CONTRAST 11/17/2022 XR CHEST 2 VIEW PA & LAT 11/06/2024 BONE DENSITY DEXA 09/09/2020 BONE DENSITY DEXA 12/09/2020 MAMMOGRAM DIGITAL BILATERAL SCREEN 09/09 ECHO 10/09/2019 Complete Blood Count Auto Diff 5 Comprehensive [place]. Panel Fast 5 Lipid Panel 01/08/2025 Vitamin D 25-OH Total 01/08/2025 CT chest wo con 11/27/2024 MM screening mammo BI 01/05/2023 XR DEXA axial skeleton 01/05/2023 Hemoglobin A1c 01/08/2025 UA ClnCatch+Micro w/rflx Cult 01/08/2025 Next Appt Details Provider Name:Ilir Forrester ier, 01/15/2025 09:30:00 AM, [address] [place] [address], [address], [place], [place], [phone], Insurance Providers Payer Name Payer Address Payer Phone Subscriber Number Group Number Insured Name Patient Relationship to Insured Coverage Start Date Coverage End Date [facility] [employer] [address] [address] [place] [address] [id number] RADHA SIFUENTES Self - patient is the insured MEDICARE [address] [place] [address] [id number] BEAR RADHA Self - patient is the insured Medical (General) History Medical History History ICD Code colonoscopy 2010 due in 5 ye ars; colonoscopy 04/13/[address] Georgina Philippe in 2027
--- OUTSIDE RECORDS SUMMARY | 2025-01-08 12:35 | XMS_ITS ---
Author Organization Ilir Hodge MD Address [address] [place] [phone] Care Team Providers Care Yarn Packer Name Role Phone Ilir Hodge Primary Care [...] Sertraline HCl 100MG take 1 tablet [address] [facility] once daily for 90 days Orally Once a day for 90 days Active Vital Signs Blood pressure systolic 158 mm Hg 12/29/19 25 Blood pressure diastolic 76 mm Hg 025 Height 64 in 12/28/2024 Weight 235 lbs 12/28/2024 BMI 40.33 kg/m2 12/28/2024 Encounters Encounter Location Date Provider Diagnosis Ilir Hodge MD [address] [place] [address] [place] [phone] 12/28/2024 Ilir Hodge Type 2 diabetes mellitus [...] Up: 4 Weeks, Reason: asthma Provider Name:Ilir Forrester ier, 01/15/2025 09:30:00 AM, [address] [place] [address], [address], [place], [place], [phone], Progress Notes * SAVANNAH SIFUENTES EDOB: 9 (64 yo F)Acc No.[id number]:12/28/2024 Progress Notes Patient:?SAVANNAH SIFUENTES E Provider:?Ilir Hodge MD :1960???Age:64 Y???Sex:Female D ate:12/28/2024 Address:[address] [place] [address] [id number] Subjective: * Chief Complaints: * ???1 month follow up appt * HPI: ???Symptom(s):?patient is a 64 yo female here for one month follow up visit/ saw pulmoologist and started on prednisone and antibiotics. * ROS:?General/Constitutional:?Denies?Chills.?Denies?Fatigue.?Denies?Fever.?Denies?Headache.?ENT:?Denies?Sore throat.?Respiratory:?Admits?Cough.?Denies?Shortness of breath at rest.?Admits?Shortness of breath with exertion.?Admits?Sputum production.?Admits?Wheezing.?Gastrointestinal:?Denies?Diarrhea.?Denies?Nausea.? * Medical History:? * Surgical History:? * [...] * Vitals:?Ht: 64, Wt: 235, BMI :40.33, BP:158/76, Repeat BP:132/78, Wt-k.6. * Examination: ???General Examination: ?GENERAL APPEARANCE:?coughing non stop.?HEAD:?normocephalic.?SKIN:?good turgor.?HEART:?no murmurs, regular rate and rhythm.?LUNGS:?abnormal with few wheezes.? Assessment: * Assessment: 1.?Type 2 diabetes mellitus without complications - E11.9 (Primary)???2.?Mild intermittent asthma, uncomplicated - J45.20??? Plan: * Treatment: 2.?Mild intermittent asthma, uncomplicated? Start Ipratropium-Albuterol Solution, 0.5-2.5 (3) MG/3ML, 3 mL as needed, Inhalation, every 6 hrs, 30 days, 360 ML, Refills 3;?Start Montelukast Sodium Tablet, 10 MG, 1 tablet, Orally, Once a day, 30 day(s), 30.?? 3.?Others? Notes: feels that the cef made her better and it came back after stopping?? * Procedure Codes:? * Follow Up:?4 Weeks (Reason: asthma) * * Sign off status: Completed true * Provider:?Ilir Hodge MD Date:?0 12/28/2024 Generated for Valentin medina/Alexia/Majorsmitting on:?01/08/2025 12:34 PM EDT History and Physical [...]
[2025-01-08 12:51] LABS: Estimated Average Glucose 154 mg/dL; Hemoglobin A1C 196.3881 umol/L; Total Hemoglobin (HGBA1C) 3701.2538 umol/L
[2025-01-08 13:22] LABS: Vitamin D 25-OH Total 20.3 ng/mL (>30)
[2025-01-08 13:41] LABS: Alanine Aminotransferase 28 U/L (0-31); Albumin Level 3.9 g/dL (3.5-5.0); Anion Gap 14 (12-20); Aspartate Amino Transferase 38 U/L (5-31); Bilirubin Total 0.7 mg/dL (0.0-1.0); Blood Urea Nitrogen 17 mg/dL (9-16); Calcium 9.7 mg/dL (8.4-10.2); Carbon Dioxide 27 mmol/L (22-29); Chloride 108 mmol/L (96-108); Cholesterol 197 mg/dL (<200); Estimated Glomerular Filt Rate > 60; Glucose Fasting 123 mg/dL (60-99); HDL Cholesterol 56 mg/dL (>40); LDL Cholesterol Calculated 122 mg/dL (<100); Potassium 4.7 mmol/L (3.3-5.1); Sodium 144 mmol/L (135-145); Total Protein 6.6 g/dL (6.5-8.0); Triglycerides 96 mg/dL (<150)
[2025-01-08 15:17] LABS: Alkaline Phosphatase 78 U/L (39-117)
== END 2025-01-08 11:56 | disposition home or self-care (01) ==
LOC: HO.LNP 11:55
PROVIDERS: Visit Provider Internal Medicine
DX: Z00.00 Encounter for general adult medical examination without abnormal findings (principal); E78.00 Pure hypercholesterolemia, unspecified; I10 Essential (primary) hypertension; E11.9 Type 2 diabetes mellitus without complications; E55.9 Vitamin D deficiency, unspecified
CPT/HCPCS: 80053; 80061; 81001; 82043; 82306; 82570; 83036; 85025

== ENCOUNTER 2025-01-12 13:49 | Outpatient (AMB) | payer MEDICARE, SELFPAY ==
--- OUTSIDE RECORDS SUMMARY | 2025-01-12 13:53 | XMS_ITS ---
Author Organization Ilir Hodge MD Address [address] [place] [phone] Care Team Providers Care Ballistics Expert Name Role Phone Ilir Hodge Primary Care [...] Sertraline HCl 100MG take 1 tablet by [facility] once daily for 90 days Orally [...] Location Date Provider Diagnosis Ilir Hodge MD [address] [place] [address] Drive [address] [place], [place] [phone] 11/27/2024 Ilir Hodge Persistent cough for 3 [...] Reason: Provider Name:Ilir alford, 01/15/2025 09:30:00 AM, [address] [place] [address], [address], [place], [place], [phone], Progress Notes * SAVANNAH SIFUENTES EDOB: (64 yo F)Acc No.[id number]:11/27/2024 Progress Notes Patient:?SAVANNAH SIFUENTES Provider:?Ilir Hodge MD :1960???Age:64 Y???Sex:Female D ate:11/27/2024 Address:[address] [place] [address] Louisejeremy Hilario [id number] Subjective: * Chief Complaints: * ???2 WEEK [...] MD Date:?0 11/27/2024 Generated for Lisai adam/Alexia/eTransmitting on:?01/12/2025 01:53 PM EDT History and Physical Notes * [...]
--- OUTSIDE RECORDS SUMMARY | 2025-01-12 13:54 | XMS_ITS ---
Author Organization Ilir Hodge MD Address [address] [place] [phone] Care Team Providers Care Physician Extender Name Role Phone Ilir Hodge Primary Care Provider Results Component Value Reference Range Notes Complete Blood Count Auto Di ff Reviewed date:01/08/2025 12:36:23 PM Interpretation: Performing Lab:[facility], [address] [place] [phone] Notes/Report: White Blood Count 6.5 4.8-10.8 X10*3/uL [...] NRBC Abs Auto 0.000 0.0-0.012 X10*3/uL Comprehensive [place]. Panel Fa st Reviewed date:01/10/2025 07:02:22 PM Interpretation: Performing Lab:[facility], [address] [place] [phone] Notes/Report: Sodium 144 135-145 mmol/L Potassium 4.7 [...] Panel Reviewed date:01/08/2025 05:12:45 PM Interpretation: Performing Lab:[facility], [address] [place] [phone] Notes/Report: Triglycerides 96 <150 mg/dL Desirable Triglyceride: [...] Total Reviewed date:01/08/2025 05:13:08 PM Interpretation: Performing Lab:[facility], [address] [place] [phone] Notes/Report: Vitamin D 25-OH Total 20.3 >30 [...] Random Reviewed date:01/08/2025 12:34:10 PM Interpretation: Performing Lab:[address] [phone] Notes/Report: Creatinine Urine 177.53 Microalbumin Urine 293.0 Microalbum/Creatinine Ratio Ur 165.0 <30 ug/mg cr Albumin/Creatinine Ratio Reference Ranges: Normal: < 30 ug/mg creatinine Microalbuminuria: 30 - 300 ug/mg creatinine Clinical Albuminuria: > 300 ug/mg creatinine Hemoglobin A1c Reviewed date:01/08/2025 03:03:50 PM Interpretation: Performing Lab:[address] [phone] Notes/Report: Hemoglobin A1c % 7.0 <6.0 % [...] average glucose, using the formula of the I2N-Dmxwlfi Average Glucose study (ADAG), Diabetes Care, Vol.31,#8, Mar. 2007 UA ClnCatch+Micro w/rflx Cul t Reviewed date:01/08/2025 12:35:06 PM Interpretation: Performing Lab:[address] [phone] Notes/Report: Urine, Clean Catch Color Urine Yellow Appearance Urine Hazy PH 6.0 5.0-9.0 Glucose Urine UA Negative Negative mg/dL Urine Blood Negative Negative Specific [place] - Urine 1.025 1.005-1.025 Urine Protein 30 [...] Location Date Provider Diagnosis Ilir Hodge MD [address] [place] [address] [place] [phone] 01/08/2025 Ilir Hodge Blood tests for rout [...] Treatment Next Appt Details Provider Name:Ilir alford, 01/15/2025 09:30:00 AM, [address] [place] [address], Suite [facility], [place], [place], [phone], Progress Notes * SAVANNAH SIFUENTES EDOB: (64 yo F)Acc No.[id number]:01/08/2025 Progress Note Patient:?SAVANNAH SIFUENTES Provider:?Ilir Hodge MD :1960???Age:64 Y???Sex:Female D ate:01/08/2025 Address:[address] [place] [address] Louise wale Hilario [id number] Subjective: * Chief Complaints: * ???1. FASTING [...] Time - 01/08/2025 07:30 AM) ?LAB: Comprehensive [place]. Panel Fast (Collection Date & Time - 01/08/2025 07:30 AM) ?LAB: Lipid Panel (Collection Date & Time - 01/08/2025 07:30 AM) ?LAB: Vitamin D 25-OH Total (Collection Date & Time - 01/08/2025 07:30 AM) ?LAB: Microalbumin, Random (Collection Date & Time - 01/08/2025 07:30 AM) ?LAB: Hemoglobin A1c (Collection Date & Time - 01/08/2025 07:30 AM) ?LAB: UA ClnCatch+Micro w/rflx Cult (Collection Date & Time - 01/08/2025 07:30 AM) 3.?Pure hypercholesterolemia ?LAB: Complete Blood Count Auto Diff (Collection Date & Time - 01/08/2025 07:30 AM) ?LAB: Comprehensive [place]. Panel Fast (Collection Date & Time - 01/08/2025 07:30 AM) ?LAB: Lipid Panel (Collection Date & Time - 01/08/2025 07:30 AM) ?LAB: Vitamin D 25-OH Total (Collection Date & Time - 01/08/2025 07:30 AM) ?LAB: Microalbumin, Random (Collection Date & Time - 01/08/2025 07:30 AM) ?LAB: Hemoglobin A1c (Collection Date & Time - 01/08/2025 07:30 AM) ?LAB: UA ClnCatch+Micro w/rflx Cult (Collection Date & Time - 01/08/2025 07:30 AM) 4.?Type 2 diabetes mellitus without complications?LAB: Complete Blood Count Auto Diff (Collection Date & Time - 01/08/2025 07:30 AM) ?LAB: Comprehensive [place]. Panel Fast (Collection Date & Time - 01/08/2025 07:30 AM) ?LAB: Lipid Panel (Collection Date & Time - 01/08/2025 07:30 AM) ?LAB: Vitamin D 25-OH Total (Collection Date & Time - 01/08/2025 07:30 AM) ?LAB: Microalbumin, Random (Collection Date & Time - 01/08/2025 07:30 AM) ?LAB: Hemoglobin A1c (Collection Date & Time - 01/08/2025 07:30 AM) ?LAB: UA ClnCatch+Micro w/rflx Cult (Collection Date & Time - 01/08/2025 07:30 AM) 5.?Vitamin D deficiency?LAB: Complete Blood Count Auto Diff (Collection Date & Time - 01/08/2025 07:30 AM) ?LAB: Comprehensive [place]. Panel Fast (Collection Date & Time - 01/08/2025 07:30 AM) ?LAB: Lipid Panel (Collection Date & Time - 01/08/2025 07:30 AM) ?LAB: Vitamin D 25-OH Total (Collection Date & Time - 01/08/2025 07:30 AM) ?LAB: Microalbumin, Random (Collection Date & Time - 01/08/2025 07:30 AM) ?LAB: Hemoglobin A1c (Collection Date & Time - 01/08/2025 07:30 AM) ?LAB: UA ClnCatch+Micro w/rflx Cult (Collection Date & Time - 01/08/2025 07:30 AM) * Procedure Codes:?31485 VENIP UNCT, ROUTINE* * * The named appointment provid er may or may not be the originator of this progress note, and it is not deemed complete until electronically signed by the appointment provider. Sign off status: Pending * Provider:?Ilir Hodge MD Date:?0 01/08/2025 Generated for Valentin medina/Alexia/eTransmitting on:?01/12/2025 01:53 PM EDT
--- OUTSIDE RECORDS SUMMARY | 2025-01-12 13:54 | XMS_ITS | Patient Health Record ---
Author Organization Ilir Hodge MD Address [address] [place], [place] [id number] Care Team Providers Care Orchard Manager Name Role Phone Ilir Hodge Primary Care Provider [phone] Allergies Allergen (clinical drug ingredient) Drug/Non Drug [...] Panel Reviewed date:07/06/2024 04:44:07 PM Interpretation: Performing Lab:[facility], [address] [place] [phone] Notes/Report: Bilirubin Total 1.0 0.0-1.0 mg/dL Bilirubin Direct 0.3 0.0-0.5 mg/dL Aspartate Amino Transferase 34 5-31 U/L Alanine Aminotransferase 23 0-31 U/L Total Protein 7.1 6.5-8.0 g/dL Albumin Level 4.0 3.5-5.0 g/dL Alkaline Phosphatase 80 39-117 U/L Glucose Fasting Reviewed date:07/06/2024 04:39:33 PM Interpretation: Performing Lab:[facility], [address] [place] [phone] Notes/Report: Glucose Fasting 103 60-99 mg/dL A fasting glucose from 100-125 mg/dl is considered impaired (pre-diabetes). Lipid Panel with Reflex Reviewed date:07/06/2024 04:43:47 PM Interpretation: Performing Lab:[facility], [address] [place] [phone] Notes/Report: Triglycerides 105 <150 mg/dL Desirable Triglyceride: [...] A1c Reviewed date:07/06/2024 12:27:15 PM Interpretation: Performing Lab:[facility], [address] [place] [phone] Notes/Report: Hemoglobin A1c % 6.7 <6.0 % [...] average glucose, using the formula of the T2P-Pyvjfei Average Glucose study (ADAG), Diabetes Care, Vol.31,#8, Mar. 2007 Complete Blood Count Auto Di ff Reviewed date:01/08/2025 12:36:23 PM Interpretation: Performing Lab:[facility], [address] [place] [phone] Notes/Report: White Blood Count 6.5 4.8-10.8 X10*3/uL [...] NRBC Abs Auto 0.000 0.0-0.012 X10*3/uL Comprehensive [place]. Panel Fa st Reviewed date:01/10/2025 07:02:22 PM Interpretation: Performing Lab:[facility], [address] [place] [phone] Notes/Report: Sodium 144 135-145 mmol/L Potassium 4.7 [...] Panel Reviewed date:01/08/2025 05:12:45 PM Interpretation: Performing Lab:[facility], [address] [place] [phone] Notes/Report: Triglycerides 96 <150 mg/dL Desirable Triglyceride: [...] Total Reviewed date:01/08/2025 05:13:08 PM Interpretation: Performing Lab:[address] [phone] Notes/Report: Vitamin D 25-OH Total 20.3 >30 [...] Random Reviewed date:01/08/2025 12:34:10 PM Interpretation: Performing Lab:[facility], [address] [place] [phone] Notes/Report: Creatinine Urine 177.53 Microalbumin Urine 293.0 Microalbum/Creatinine Ratio Ur 165.0 <30 ug/mg cr Albumin/Creatinine Ratio Reference Ranges: Normal: < 30 ug/mg creatinine Microalbuminuria: 30 - 300 ug/mg creatinine Clinical Albuminuria: > 300 ug/mg creatinine Hemoglobin A1c Reviewed date:01/08/2025 03:03:50 PM Interpretation: Performing Lab:[facility], [address] [place] [phone] Notes/Report: Hemoglobin A1c % 7.0 <6.0 % [...] average glucose, using the formula of the C8W-Vhekebs Average Glucose study (ADAG), Diabetes Care, Vol.31,#8, Mar. 2007 UA ClnCatch+Micro w/rflx Cul t Reviewed date:01/08/2025 12:35:06 PM Interpretation: Performing Lab:[facility], [address] [place] [phone] Notes/Report: Urine, Clean Catch Color Urine Yellow Appearance Urine Hazy PH 6.0 5.0-9.0 Glucose Urine UA Negative Negative mg/dL Urine Blood Negative Negative Specific Early - Urine 1.025 1.005-1.025 Urine Protein 30 (1+) Neg-Trace mg/dL Urine Ketones Negative Negative mg/dL Nitrite Urine Negative Negative Leukocyte Esterase Urine Negative Negative RBC Urine 0-2 0-2 /HPF WBC Urine 0-5 0-5 /HPF Squamous Epithelial Cell Urine 0-2 0-2 /HPF Bacteria Urine 1+ None Seen Hyaline Casts Urine 0-2 0-2 /LPF Glucose, finger stick Reviewed date:11/06/2024 09:00:09 AM Interpretation: Performing Lab: Notes/Report: Value 90 Glucose, Whole Blood Reviewed date:02/09/2024 08:35:24 PM Interpretation: Performing Lab:[facility], [address] [place] [phone] Notes/Report: Glucose, Whole Blood 144 60-115 mg/dL METER #: [id number] Testing performed [facility] [place] [address]. Glucose, Whole Blood Reviewed date:06/14/2024 02:17:33 PM Interpretation: Performing Lab:[facility], [address] [place] [phone] Notes/Report: Glucose, Whole Blood 139 60-115 mg/dL METER #: [id number] Testing performed [facility] [place] [address], [place]O Lipid Panel Reviewed date:07/03/2024 11:07:17 AM Interpretation: Performing Lab:[facility], [address] [place] [phone] Notes/Report: Triglycerides 117 <150 mg/dL Desirable Triglyceride: [...] Thyroxine) Reviewed date:07/03/2024 11:15:23 AM Interpretation: Performing Lab:[facility], [address] [place] [phone] Notes/Report: Free T4 (Free Thyroxine) 1.14 0.71-1.85 ng/dL Thyroid Stimulating Hormone Reviewed date:07/03/2024 11:15:32 AM Interpretation: Performing Lab:[facility], [address] [place] [phone] Notes/Report: Thyroid Stimulating Hormone 1.60 0.32-4.0 uIU/mL TSH 3rd Generation ([facility]) Microalbumin, Random Reviewed date:07/03/2024 11:15:50 AM Interpretation: Performing Lab:[address] [phone] Notes/Report: Creatinine Urine 155.38 Microalbumin Urine 462.0 Microalbum/Creatinine Ratio Ur 297.3 <30 ug/mg cr Albumin/Creatinine Ratio Reference Ranges: Normal: < 30 ug/mg creatinine Microalbuminuria: 30 - 300 ug/mg creatinine Clinical Albuminuria: > 300 ug/mg creatinine Hold Gold Reviewed date:07/06/2024 12:26:46 PM Interpretation: Performing Lab:[facility], [address] [place] [phone] Notes/Report: Hold Gold See Note Specimen held untested for 24 hours; Call to request Chemistry testing. Complete Blood Count Auto Di ff Reviewed date:08/14/2024 02:07:47 PM Interpretation: Performing Lab:[facility], [address] [place] [phone] Notes/Report: White Blood Count 7.2 4.8-10.8 X10*3/uL [...] Panel Reviewed date:08/14/2024 02:07:32 PM Interpretation: Performing Lab:[facility], [address] [place] [phone] Notes/Report: Bilirubin Total 0.7 0.0-1.0 mg/dL Bilirubin Direct 0.2 0.0-0.5 mg/dL Aspartate Amino Transferase 27 5-31 U/L Alanine Aminotransferase 25 0-31 U/L Total Protein 7.1 6.5-8.0 g/dL Albumin Level 4.0 3.5-5.0 g/dL Alkaline Phosphatase 110 39-117 U/L Basic Metabolic Panel Reviewed date:08/14/2024 02:07:16 PM Interpretation: Performing Lab:[facility], [address] [place] [phone] Notes/Report: Sodium 142 135-145 mmol/L Potassium 4.3 [...] Sensitivity Reviewed date:08/14/2024 02:07:24 PM Interpretation: Performing Lab:[facility], [address] [place] [phone] Notes/Report: Troponin-I High Sensitivity 6.1 <3.5-17.0 ng/L The [place] high sensitivity Troponin-I results should be used in conjunction with other diagnostic information such as ECG, clinical observations and information, and patient symptoms to aid in the diagnosis of NM. CT head/brain wo con Reviewed date:08/15/2024 12:24:33 PM Interpretation: Performing Lab: Notes/Report: [place] [address] [address] [address] Scan Report Signed Patient: Radha Sifuentes MR#: [id number] 93 : 1960 Acct:[id number] Age/Sex: 64 / F ADM Date: 08/14/24 Loc: HO.ED Attending Dr: Ordering Physician: Riley Cummings Date of Service: 08/14/24 Procedure(s): CT head/brain wo IV con Accession Number(s): [id number] cc: Riley Cummings; Ilir Hodge MD EXAMINATION: [...] by: Carlos Huitron MD 08/14/2024 05:48 PM [facility] Dictated By: Carlos Huitron MD Signed By: <Electronically signed by Carlos Huitron MD in OV> 08/14/24 1748 DD/ 1516 TD/TT: 08/14/24 1617 Box Icer: [address] [address] [address] Scan Report Signed Patient: Janee Sifuentes MR#: [id number] 93 : 1960 Acct:[id number] Age/Sex: 64 / F ADM Date: 08/14/24 Loc: HO.ED Attending Dr: Ordering Physician: Riley Cummings Date of Service: 08/14/24 Procedure(s): CT head/brain wo IV con Accession Number(s): [id number] cc: Riley Cummings; Ilir Hodge MD EXAMINATION: [...] con IMPRESSION: No CT evidence of ac [place] intracranial hemorrhage or edematous territorial infarction.. Electronically raad d by: Carlos Huitron MD 08/14/2024 05:48 PM [facility] Dictated By: Carlos Huitron MD Signed By: <Electronically signed by Carlos Huitron MD in OV> 08/14/24 1748 DD/ 1516 TD/TT: 08/14/24 1617 Box Icer: HEATH Troponin-I High Sensitivity Reviewed date:08/14/2024 04:57:01 PM Interpretation: Performing Lab:[facility], [address] [place] [phone] Notes/Report: Troponin-I High Sensitivity 8.8 <3.5-17.0 ng/L The Rom[place] high sensitivity Troponin-I results should be used in conjunction with other diagnostic information such as ECG, clinical observations and information, and patient symptoms to aid in the diagnosis of NM. Glucose, Whole Blood Reviewed date:09/11/2024 12:40:04 PM Interpretation: Performing Lab:[facility], [address] [place] [phone] Notes/Report: Glucose, Whole Blood 139 60-115 mg/dL METER #: [id number] Testing performed in the [facility]ocrinology Department and [facility], [address] [place] [address] [address]. [address], [place]. MM tomosynthesis screening B I Reviewed date:09/28/2024 04:55:24 PM Interpretation: Performing Lab: Notes/Report: [facility] [address] [place] [place] [address] Mammography Report Signed Patient: Radha Sifuentes MR#: [id number] 93 : 1960 Acct:[id number] Age/Sex: 64 / F ADM Date: 09/20/24 Loc: HO.MAMMO Attending Dr: Ilir Hodge MD Ordering Physician: Ilir Hodge MD Results: 2Be nign Findings Date of Service: 09/20/24 Follow Up: 1 Year From [facility] Mammogram Procedure(s): MM tomosynthesis screening BI Accession Number(s): [id number] cc: Ilir Hodge MD EXAMINATION: MM SCREENING [...] 09/28/24 1451 DD/ 1045 TD/TT: 09/20/24 1108 Box Icer: [facility] [address] [place] [address] [place] [address] Mammography Report Signed Patient: Janee Sifuentes MR#: [id number] 93 : 1960 Acct:[id number] Age/Sex: 64 / F ADM Date: 09/20/24 Loc: HO.MAMMO Attending Dr: Ilir Hodge MD Ordering Physician: Ilir Hodge MD Results: 2Be nign Findings Date of Service: 09/20/24 Follow Up: 1 Year From [facility] Mammogram Procedure(s): MM tomosynthesis screening BI Accession Number(s): [id number] cc: Ilir Hodge MD EXAMINATION: MM SCREENING [...] 09/28/24 1451 DD/ 1045 TD/TT: 09/20/24 1108 Box Icer: XR chest 2V Reviewed date:11/06/2024 05:58:04 PM Interpretation: Performing Lab: Notes/Report: [address] [address] XRay Report Signed Patient: Radha Sifuentes MR#: [id number] 93 : 1960 Acct:[id number] Age/Sex: 64 / F ADM Date: 11/06/24 Loc: MERON Attending Dr: Ilir Hodge MD Ordering Physician: Ilir Hodge MD Date of Service: 11/06/24 Procedure(s): XR chest 2V Accession Number(s): [id number] cc: Ilir Hodge MD EXAMINATION: XR CHEST [...] 11/06/24 1557 DD/ 0930 TD/TT: 11/06/24 0938 Box Icer: [address] [address] XRay Report Signed Patient: Janee Sifuentes MR#: [id number] 93 : 1960 Acct:[id number] Age/Sex: 64 / F ADM Date: 11/06/24 Loc: MERON Attending Dr: Ilir Hodge MD Ordering Physician: Ilir Hodge MD Date of Service: 11/06/24 Procedure(s): XR marjan st 2V Accession Number(s): [id number] cc: Ilir Hodge MD EXAMINATION: XR CHES [...] 11/06/24 1557 DD/ 0930 TD/TT: 11/06/24 0938 Box Icer: Glucose, Whole Blood Reviewed date:11/16/2024 12:16:53 PM Interpretation: Performing Lab:[facility], [address] [place] [phone] Notes/Report: Glucose, Whole Blood 53 60-115 mg/dL METER #: [id number] Testing performed in the [facility] , [address], [facility]. Glucose, Whole Blood Reviewed date:11/16/2024 12:16:39 PM Interpretation: Performing Lab:[facility], [address] [place] [address] Notes/Report: Glucose, Whole Blood 93 60-115 mg/dL METER #: [id number] Testing performed in the Endocrinology Department and Diabetes [address] , [address], [facility]. Reason For Referral Reason Hives of unknow orig in Diagnosis 1 Hives of unknown gregg gin (L50.9) Referral Organization Ilir Hodge MD Referring Provider First Name Ilir Referring Provider Last Name Ayesha Referring Provider Speciality Internal M edicine Referred Provider COREY CHAND Referred Provider Specialty Allergy/Immu nology General Notes Penny Saenz 11:58:48 AM EST > info faxed to the [facility] office p [phone] f [phone] they will call patient with an appt, Penny Saenz 09/15/2024 02:42:20 PM > referral info mailed to patient Referral Priority Routine Referral Appointment Date 11/13/2024 Reason Bronchitis Diagnosis 1 Bronchitis (J40) Referral Organization Ilir Hodge MD Referring Provider First Name Ilir Referring Provider Last Name Ayesah Referring Provider Speciality Internal M edicine Referred Provider BETH RUSSELL Referred Provider Specialty Pulmonary [facility] General Notes Penny Saenz 0 11/13/2024 08:31:51 AM > referral info faxed, Penny Saenz 12/07/2024 03:03:49 PM > appt is in the [place] office, patient is aware of appointment Referral [...] Sertraline HCl 100MG take 1 tablet by [facility] once daily for 90 days Orally Once [...] Comme nts Fluarix Quadrivalent IM Intramuscular 05/28/2014 [facility] Flu Vaccine IM Intramuscular 05/24/2015 Administered PPSV23 (Pnemovax) IM Intramuscular 11/22/2015 Administered Fluarix Quadrivalent IM Intramuscular 05/22/2016 [facility] Fluarix Quadrivalent IM Intramuscular 05/10/2017 [facility] Fluarix Quadrivalent IM Intramuscular 05/10/[address] [facility] Prevnar 13 IM Intramuscular 11/22/2018 Administered Fluarix Quadrivalent IM Intramuscular 05/22/[address] [facility] Covid Vaccine Unknown 10/04/2020 Administered Moderna A t work Covid Vaccine Unknown 11/01/2020 Administered Moderna TDaP Unknown 12/05/2020 Administered [facility] PPSV23 (Pnemovax) IM Intramuscular 03/10/2021 Administered Fluarix Quadrivalent IM Intramuscular 06/10/2021 [facility] SARS-COV-2 Moderna Unknown 07/17/2021 Administered Flu [...] Problem Status W/U Status Risk Notes Problem 035380688 Type 2 diabetes mellitus without complications (E11.9) Active confirmed Problem 35365099 Lymphocytosis (D72.820) Active confirm ed Problem 76760639 Depression (F32.9) Active confirmed Problem 63603793 Vitamin D defici ency (E55.9) Active confirmed Problem 020247677 Diverticulitis (K57.92) Active confir med Problem 420901127 Mild intermitten t asthma, uncomplicated (J45.20) Active confirmed Problem 549219533 Other specified menopausal and perimenopausal disorders (N95.8) Active confirmed Problem 883461716 Encounter for la reening for other protozoal diseases and helminthiases (Z11.6) Active confirmed Problem 952741579 Asymptomatic men opausal state (Z78.0) Active confirmed Problem 13849181 Essential hypert ension (I10) Active confirmed Problem 36353821 Dysthymia (F34.1) Active confirmed Problem 37653468 Sciatica of righ t side (M54.31) Active confirmed Problem 079053265 Pure hypercholesterolemia (E78.00) Active confirmed Problem 058996830 Hypertensive cri sis (I16.9) Active confirmed Problem 80236892 Kidney stone on left side (N20.0) Active confirmed Problem 183606972 Screening mammog osiris for breast cancer (Z12.31) Active confirmed Vital Signs Blood pressure diastolic 76 mm Hg 12/28/2024 Height 64 in 12/28/2024 Blood pressure systolic 158 mm Hg 12/28/2024 Weight 235 lbs 12/28/2024 BMI 40.33 kg/m2 12/28/2024 Encounters Encounter Location Date Provider Diagnosis Ilir Hodge MD [address] [place] [id number] 07/06/2024 Ilir Hodge Pure hypercholestero lemia E78.00 and Type 2 diabetes mellitus without complications E11.9 Ilir Hodge MD [address] [place] [id number] 01/08/2025 Ilir Hodge Blood tests for rout ine general physical examination Z00.00 ; Essential hypertension I10 ; Pure hypercholesterolemia E78.00 ; Type 2 diabetes mellitus without complications E11.9 and Vitamin D deficiency E55.9 Ilir Hodge MD [address] [place] [id number] 07/14/2024 Ilir Jeanardier Type 2 diabetes piter itus without complications E11.9 ; Cardiac murmur R01.1 and Pure hypercholesterolemia E78.00 Ilir Hodge MD [address] [facility] [address] [id number] 08/14/2024 Ilir Jeanardier Type 2 diabetes piter itus without complications E11.9 ; Hypertensive crisis I16.9 and Hives of unknown origin L50.9 Ilir Hodge MD [address] [id number] 08/25/2024 Ilir Penaardier Type 2 diabetes piter itus without complications E11.9 ; Hives of unknown origin L50.9 and Essential hypertension I10 Ilir Hodge MD [address] [id number] 09/07/2024 Ilir Penaardier Type 2 diabetes piter itus without complications E11.9 and Hives of unknown origin L50.9 Ilir Hodge MD [address] [id number] 11/06/2024 Ilir Penaardier Type 2 diabetes piter itus without complications E11.9 and Mild intermittent asthma, uncomplicated J45.20 Ilir Hodge MD [address] [id number] 11/13/2024 Ilir Hodge Bronchitis J40 Ilir Hodge MD [address] [place] [id number] 11/27/2024 Ilir Hodge Persistent cough for 3 weeks or longer R05.3 ; Type 2 diabetes mellitus without complications E11.9 and Essential hypertension I10 Ilir Hodge MD [address] [id number] 12/28/2024 Ilir Hodge Type 2 diabetes piter itus without complications E11.9 and Mild intermittent asthma, uncomplicated J45.20 Assessments Encounter Date Diagnosis (ICD Code) Assessment Notes Treatment Notes Treatment Clinical Notes Section Notes 07/06/2024 Pure hypercholesterolemia (ICD-10 - E78.00) 07/06/2024 Type 2 diabetes mellitus without complications (ICD-10 - E11.9) 01/08/[address] ine general physical examination (ICD-10 - Z00.00) 07/14/2024 Type 2 diabetes mellitus without complications [...] (ICD-10 - L50.9) 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 11/06/2024 Type 2 diabetes [...] 01/08/2025 Essential hypertensi on (ICD-10 - I10) 07/14/2024 Pure hypercholesterolemia (ICD-10 - E78.00) stable, [...] J45.20) 01/08/2025 Pure hypercholesterolemia (ICD-10 - E78.00) 11/27/2024 Essential hypertensi on (ICD-10 - I10) running a little high today, will contiue curent regiment and will contiue to monitor 01/08/2025 Type 2 diabetes mellitus without complications (ICD-10 - E11.9) 01/08/2025 Vitamin D deficiency (ICD-10 - E55.9) 12/28/2024 Other feels that the cef made [...] skeleton 01/05/2023 Next Appt Details Provider Name:Ilir alford, 01/15/2025 09:30:00 AM, [address] [place] [address], [address], [place], [place], [id number], Insurance Providers Payer Name Payer Address Payer Phone Subscriber Number Group Number Insured Name Patient Relationship to Insured Coverage Start Date Coverage End Date [employer] [address] [address] [place] [address] [id number] RADHA SIFUENTES Self - patient is the insured [employer] [address] [place] [address] [id number] JANEE SIFUENTESA Self - patient is the insured Medical (General) History Medical History History ICD Code colonoscopy 2010 due in 5 ye ars; colonoscopy 04/13/[address] Georgina Philippe in 2027
--- OUTSIDE RECORDS SUMMARY | 2025-01-12 13:54 | XMS_ITS ---
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 Name Role Phone Ilir Hodge Primary Care Provider [phone] Allergies Allergen (clinical drug ingredient) Drug/Non Drug [...] Sertraline HCl 100MG take 1 tablet by [facility] once daily for 90 days Orally Once a day for 90 days Active Vital Signs Blood pressure systolic 158 mm Hg 12/29/19 25 Blood pressure diastolic 76 mm Hg 025 Height 64 in 12/28/2024 Weight 235 lbs 12/28/2024 BMI 40.33 kg/m2 12/28/2024 Encounters Encounter Location Date Provider Diagnosis Ilir Hodge MD [address] [place] [address] [place] [id number] 12/28/2024 Ilir Hodge Type 2 diabetes mellitus [...] Provider Name:Ilir Forrester ier, 01/15/2025 09:30:00 AM, [address] [place] [address], [address], [place], [place], [phone], Progress Notes * SAVANNAH SIFUENTES EDOB: [birth year] (64 yo F)Acc No.[id number]:12/28/2024 Progress Notes Patient:?SAVANNAH SIFUENTES E Provider:?Ilir Hodge MD :1960???Age:64 Y???Sex:Female D ate:12/28/2024 Address:[address] [place] [address] [id number] Subjective: * Chief Complaints: * ???1 month [...] MD Date:?0 12/28/2024 Generated for Valentin medina/Alexia/Majorsmitting on:?01/12/2025 01:53 PM EDT History and Physical [...]
[2025-01-12 14:23] VITALS: BP 136/84; PULSE 84; O2SAT 95; BMI 41.2
--- NOTE | 2025-01-12 14:23 | A.OFFVIS_ITS ---
Vital Signs 01/12/25 14:23 Height 5 ft 3.5 in Weight 236 lb 8 oz BMI 41.2 BP 136/84 Blood Pressure Location Lt brachial Position Sitting Pulse 84 Pulse Source Pulse Oximeter Pulse Oximetry (%) 95 Oxygen Delivery Method Room Air Intake Visit Reasons: bronchitis Allergies Penicillins [PENICILLINS] Allergy (Severe, Verified 01/12/25 14:26) RASH Sulfa (Sulfonamide Antibiotics) [SULFA (SULFONAMIDE ANTIBIOTICS)] Allergy (Severe, Verified 01/12/25 14:26) THROMBOCYTOPENIA, severe penicillin V Allergy (Unknown, Verified 01/12/25 14:26) rash HPI HPI bronchitis: Details: Radha is a pleasant 64 year old female, never smoker, with underlying DMII h/o DKA, HTN and HLD. She was initially referred by PCP for pulmonary evaluation for chronic cough. She reported bronchitic symptoms started about 4 months ago without associated chest congestion, fevers, chills or sick contacts. She does report some time in September she was +flu. She was treated with prednisone on 11/06 and placed on azithromycin on 11/13, with no significant improvement. She was also prescribed Symbicort/Breyna for several weeks, for possible underlying asthma, however no improvement and has since discontinued. She continued with harsh dry hacking cough with associated wheezing in supine position and endorses dyspnea only after prolonged coughing. At the last visit, she was treated with Vantin and prednisone with complete resolution of symptoms after the second day of medication. Unfortunately after discontinuing symptoms recurred and PCP placed on another course of Vantin. Despite same abx, patient had no improvement, suggesting improvement with prednisone alone. She continues with dry cough and wheezing that has been progressively worsening since discontinuing prednisone. She denies chest congestion, fevers or chills. She denies chest tightness or dyspnea. 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 HLD (hyperlipidemia) Hypertension Asthma Nephrolithiasis Diabetes Surgical History History of knee replacement Family History Family/Other No known health problems Social History Household Members: Spouse Housing: House Do you presently have visiting nurse or other home services: No Alcohol intake: never Patient Tobacco Use Status: Never used Tobacco service: No Current occupational status: disabled Review of Systems Const Denies chills, Denies excessive sweating, Denies fever(s), Denies headache(s) and Denies night sweats Eyes Denies dry eyes, Denies irritation and Denies itchy eyes ENT Reports Normal hearing present, Denies headache(s), Denies nasal congestion, Denies nasal discharge, Denies post nasal drip and Denies sore throat Card Denies chest pain, Denies chest pain at rest, Denies chest pain with activity, Denies claudication, Denies leg edema, Denies dyspnea on exertion, Denies orthopnea and Denies paroxysmal nocturnal dyspnea Resp Denies change in phlegm color, Denies chest congestion, Reports cough, Denies hemoptysis, Denies excessive phlegm production, Denies pain on inspiration, D enies pain with cough, Denies dyspnea on exertion, Denies stridor and Reports wheezing Musc Denies myalgias Neuro Reports Normal hearing present and Denies headache(s) Endo Denies excessive sweating Wero/Lymph Denies lymphadenopathy Aller/Immun Denies itchy eyes, Denies seasonal rhinorrhea and Reports wheezing Physical Exam Vital Signs: Last Vital Signs Pulse 84 01/12/25 14:23 BP 136/84 01/12/25 14:23 Pulse Ox 95 01/12/25 14:23 Oxygen Delivery Method Room Air 01/12/25 14:23 BMI result Body Mass Index 41.2 Const General: cooperative, healthy appearing, comfortable, no acute distress, well developed and alert Nutritional Appearance: obese Orientation/consciousness: patient oriented x3 Limitations: no limitations HEENT Head: Yes normal to inspection, Yes normocephalic and Yes atraumatic Ears: hearing grossly normal bilaterally and external ears normal Eyes General: appearance normal, both eyes and all related structures Eyelids: Yes eyelids normal Sclerae: sclerae normal EOM: EOMs intact bilaterally Neck Neck: Yes normal visual inspection and Yes no lymphadenopathy Lymphatic: no lymphadenopathy noted Chest Chest palpation & inspection: normal inspection of the chest Resp Other: persistent dry cough throughout visit, increasing during respiratory exam with postexhalation cough Effort & Inspection: normal respiratory effort, able to speak in complete sentences, no audible wheezes, Actively coughing, no stridor, not tachypneic, no tripod positioning and no use of accessory muscles Auscultation: diminished lung sounds Cardio Jugular venous distension: no JVD Rate: regular rate Rhythm: regular rhythm Skin Other: warm, dry General skin exam: no rashes or lesions noted Neuro General: patient oriented x3 Cranial nerves: Yes Normal hearing present Cognition (Neuro): normal cognition Gait exam (Neuro): Normal gait present Extrem General: Yes normal to inspection, Yes capillary refill normal, Yes no clubbing, cyanosis or edema and Yes no pedal edema Psych Appearance: grossly normal and well kempt Speech and movement: Normal speech and movement present and Clear speech present Affect: normal affect Attitude: cooperative Thought process: Normal thought process present Thought content: Normal thought content present Insight: Good insight present (Psych) Judgement: Good judgement present (Psych) Assessment & Plan Assessment & Plan (1) Asthma: Code(s): J45.909 - Unspecified asthma, uncomplicated Category: Medical (2) Chronic cough: Code(s): R05.3 - Chronic cough Category: Medical (3) Environmental allergies: Code(s): Z91.09 - Other allergy status, other than to drugs and biological substances Category: Medical (4) Idiopathic urticaria: Code(s): L50.1 - Idiopathic urticaria Category: Medical Plan Radha presents with chronic dry hacking persistent cough since August that had resolved with recent course of Vantin and prednisone, unfortunately once patient discontinued a week later symptoms recurred. Reviewed CT chest which report states unremarkable however note of evolving inflammatory/infectious process in the RLL. Will place patient on prednisone, longer course, and send for autoimmune work up. 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 She also reports ongoing idiopathic urticari a and angioedema of face, will enter referral to Dr. Cast. Will consider PFT in the future, unlikely she would be able to complete with symptoms, clinical symptoms suggestive of asthma. Encouraged patient to restart ICS/LABA. All questions were answered and patient is in agreement of plan. Will follow up in 4 weeks or sooner if needed. Orders: Orders Sjogren's Antibodies 01/12/25 M25.50 - Pain in unspecified joint VARUN Reflex Titer and Pattern 01/12/25 M25.50 - Pain in unspecified joint Anti DNA DS Antibody 01/12/25 M25.50 - Pain in unspecified joint Cyclic Citrullinated Peptide 01/12/25 M25.50 - Pain in unspecified joint Scleroderma 70 Antibody 01/12/25 M25.50 - Pain in unspecified joint Rheumatoid Factor 01/12/25 M25.50 - Pain in unspecified joint Referrals Allergy & Immunology Referral L50.1 - Idiopathic urticaria Medications: New budesonide-formoterol 160-4.5 mcg/actuation (Symbicort) 2 puffs inhalation Q12H 10.2 grams 3RF prednisone see taper instructions Take 4 pills daily for 5 days, then go down by 1 pill every 5 days; 20 days 50 tabs 0RF 10 mg PO DIRECTED 50 tabs 0RF Coding Level of Care Code Est Pt Level 4 (41732) Diagnoses Asthma J45.909 Chronic cough R05.3 Environmental allergies Z91.09 Idiopathic urticaria L50.1
== END 2025-01-12 15:15 | disposition home or self-care (01) ==
LOC: HO.HPSW 13:50
PROVIDERS: PCP Internal Medicine; Visit Provider Nurse Practitioner Family
DX: J45.909 Unspecified asthma, uncomplicated (principal); R05.3 Chronic cough; Z91.09 Other allergy status, other than to drugs and biological substances; L50.1 Idiopathic urticaria
CPT/HCPCS: 99214

== ENCOUNTER → 2025-01-12 13:49 | Outpatient (BNVA) | payer MEDICARE, SELFPAY | PROVIDERS: PCP Internal Medicine; Visit Provider Nurse Practitioner Family | DX: Z13.89 Encounter for screening for other disorder (principal) | CPT/HCPCS: 99212 ==

== ENCOUNTER 2025-01-12 15:19 | Outpatient (REF) | payer MEDICARE, SELFPAY ==
[2025-01-12 18:01] LABS: Rheumatoid Factor < 13.0 IU/mL (<15.0)
[2025-01-16 09:24] LABS: Anti Nuclear Antibody Screen NEGATIVE (NEGATIVE)
[2025-01-16 18:48] LABS: Cyclic Citrullinated Peptide <16 UNITS
[2025-01-16 20:04] LABS: Anti DNA DS Antibody <1 IU/mL; Antibody to SS-A Antigen <1.0 NEG AI (<1.0 NEG); Antibody to SS-B Antigen <1.0 NEG AI (<1.0 NEG); Scleroderma 70 Antibody <1.0 NEG AI (<1.0 NEG)
== END 2025-01-12 15:20 | disposition home or self-care (01) ==
LOC: HO.WFDLDS 15:19
PROVIDERS: Visit Provider Nurse Practitioner Family
DX: M25.50 Pain in unspecified joint (principal); J45.909 Unspecified asthma, uncomplicated; R05.3 Chronic cough; Z91.09 Other allergy status, other than to drugs and biological substances; L50.1 Idiopathic urticaria
CPT/HCPCS: 36415; 86038; 86200; 86225; 86235; 86431; 99212

== ENCOUNTER 2025-02-09 14:36 | Outpatient (AMB) | payer MEDICARE, SELFPAY ==
--- OUTSIDE RECORDS SUMMARY | 2025-02-09 14:40 | XMS_ITS ---
Author Organization Ilir Hodge MD Address [address] [place] [phone] Care Team Providers Care Plate Embosser Name Role Phone Ilir Hodge Primary Care Provider Results Component Value Reference Range Notes Complete Blood Count Auto Di ff Reviewed date:01/08/2025 12:36:23 PM Interpretation: Performing Lab:[facility], [address] [place] [phone] Notes/Report: White Blood Count 6.5 4.8-10.8 X10*3/uL [...] NRBC Abs Auto 0.000 0.0-0.012 X10*3/uL Comprehensive [place]. Panel Fa st Reviewed date:01/10/2025 07:02:22 PM Interpretation: Performing Lab:[facility], [address] [place] [phone] Notes/Report: Sodium 144 135-145 mmol/L Potassium 4.7 [...] [facility], [address] [place] [phone] Notes/Report: Triglycerides 96 <150 mg/dL Desirable Triglyceride: [...] [facility], [address] [place] [phone] Notes/Report: Vitamin D 25-OH Total 20.3 >30 [...] Random Reviewed date:01/08/2025 12:34:10 PM Interpretation: Performing Lab:[address] [phone] Notes/Report: Creatinine Urine 177.53 Microalbumin Urine 293.0 Microalbum/Creatinine Ratio Ur 165.0 <30 ug/mg cr Albumin/Creatinine Ratio Reference Ranges: Normal: < 30 ug/mg creatinine Microalbuminuria: 30 - 300 ug/mg creatinine Clinical Albuminuria: > 300 ug/mg creatinine Hemoglobin A1c Reviewed date:01/08/2025 03:03:50 PM Interpretation: Performing Lab:[address] [phone] Notes/Report: Hemoglobin A1c % 7.0 <6.0 % [...] average glucose, using the formula of the X8S-Lygoyme Average Glucose study (ADAG), Diabetes Care, Vol.31,#8, Mar. 2007 UA ClnCatch+Micro w/rflx Cul t Reviewed date:01/08/2025 12:35:06 PM Interpretation: Performing Lab:[address] [phone] Notes/Report: Urine, Clean Catch Color Urine Yellow Appearance Urine Hazy PH 6.0 5.0-9.0 Glucose Urine UA Negative Negative mg/dL Urine Blood Negative Negative Specific [place] - Urine 1.025 1.005-1.025 Urine Protein 30 [...] Location Date Provider Diagnosis Ilir Hodge MD [address] [place] [phone] 01/08/2025 Ilir Hodge Blood tests for rout [...] Details Provider Name:Ilir alford, 02/19/2025 09:15:00 AM, [address] [place] [address], [address], [phone], Provider Name:Ilir alford, 07/19/2025 07:15:00 AM, [address] [place] [address], [phone], Provider Name:Ilir alford, 01/11/2026 07:15:00 AM, [address] [place] [address], [phone], Provider Name:Ilir alford, 01/18/2026 09:30:00 AM, [address] [place] [address], [phone], Progress Notes * SAVANNAH SIFUENTES EDOB: (64 yo F)Acc No.[id number]:01/08/2025 Progress Note Patient:?SAVANNAH SIFUENTES Provider:?Ilir Hodge MD :1960???Age:64 Y???Sex:Female D ate:01/08/2025 Address:[address] [place], [place] [address] Subjective: * Chief Complaints: * ???1. FASTING [...] Time - 01/08/2025 07:30 AM) ?LAB: Comprehensive [place]. Panel Fast (Collection Date & Time - [...] Time - 01/08/2025 07:30 AM) ?LAB: Comprehensive [place]. Panel Fast (Collection Date & Time - [...] Time - 01/08/2025 07:30 AM) ?LAB: Comprehensive [place]. Panel Fast (Collection Date & Time - 01/08/2025 07:30 AM) ?LAB: Lipid Panel (Collection Date & Time 01/08/2025 07:30 AM) ?LAB: Vitamin D 25-OH Total (Collection Date & Time - 01/08/2025 07:30 AM) ?LAB: Microalbumin, Random (Collection Date & Time 01/08/2025 07:30 AM) ?LAB: Hemoglobin A1c (Collection & Time 01/08/2025 07:30 AM) ?LAB: UA ClnCatch+Micro w/rflx Cult (Collection Date & Time 01/08/2025 07:30 AM) 5.?Vitamin D deficiency?LAB: Complete Blood Count Auto Diff (Collection Date & Time - 01/08/2025 07:30 AM) ?LAB: Comprehensive [place]. Panel Fast (Collection Date & Time - [...] Time - 01/08/2025 07:30 AM) * Procedure Codes:?22306 VENIP UNCT, ROUTINE* * * The named appointment provid er may or may not be the originator of this progress note, and it is not deemed complete until electronically signed by the appointment provider. Sign off status: Pending * Provider:?Ilir Hodge MD Date:?0 01/08/2025 Generated for Valentin medina/Alexia/Amberitting on:?02/09/2025 02:40 PM EDT
--- NOTE | 2025-02-09 14:47 | MHC.OFFVIS ---
Vital Signs 02/09/25 14:50 Height 5 ft 3.5 in Weight 244 lb 2 oz BMI 42.6 BP 136/64 Blood Pressure Location Lt brachial Position Sitting Pulse 97 Pulse Source Pulse Oximeter Pulse Oximetry (%) 97 Oxygen Delivery Method Room Air Intake Visit Reasons: bronchitis Allergies Penicillins (PENICILLINS) Allergy (Severe, Verified 02/16/25 09:20) RASH Sulfa (Sulfonamide Antibiotics) (SULFA (SULFONAMIDE ANTIBIOTICS)) Allergy (Severe, Verified 02/16/25 09:20) THROMBOCYTOPENIA, severe penicillin V Allergy (Unknown, Verified 02/16/25 09:20) rash HPI HPI bronchitis: Details: Radha is a pleasant 64 year old female, never smoker, with underlying DMII h/o DKA, HTN and HLD. She has continued with persistent dry hacking cough for the past 4 months. She does report some time in September she was +flu, ultimately treated with prednisone on 11/06 and placed on azithromycin on 11/13, with no significant improvement. Unfortunately after discontinuing symptoms recurred and PCP placed on another course of Vantin. Despite same abx, patient had no improvement, suggesting improvement with prednisone alone. At the last visit, she was placed on prednisone with complete resolution of cough and a week after discontinuing cough began to recur. Denies chest congestion, fever or chills. Denies any known triggers. Prior CT suggestive of evolving ILD and we had discussed high doses of prednisone x [address] however she would like to hold off on high doses at this time. She denies personal/family history of underlying CTD. 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 No one else in the office has similar symptoms.She continues with dry cough and wheezing that has been progressively worsening since discontinuing prednisone. She denies chest congestion, fevers or chills. She denies chest tightness or dyspnea. 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 HLD (hyperlipidemia) Hypertension Asthma Nephrolithiasis Diabetes Surgical History History of knee replacement Family History Family/Other No known health problems Social History Household Members: Spouse Housing: House Do you presently have visiting nurse or other home services: No Alcohol intake: never Patient Tobacco Use Status: Never used Tobacco service: No Current occupational status: disabled Review of Systems Const Denies chills, Denies excessive sweating, Denies fever(s), Denies headache(s) and Denies night sweats Eyes Denies dry eyes, Denies irritation and Denies itchy eyes ENT Reports Normal hearing present, Denies headache(s), Denies nasal congestion, Denies nasal discharge, Denies post nasal drip and Denies sore throat Card Denies chest pain, Denies chest pain at rest, Denies chest pain with activity, Denies claudication, Denies leg edema, Denies dyspnea on exertion, Denies orthopnea and Denies paroxysmal nocturnal dyspnea Resp Denies change in phlegm color, Denies chest congestion, Reports cough, Denies hemoptysis, Denies excessive phlegm production, Denies pain on inspiration, Denies pain with cough, Denies dyspnea on exertion, Denies stridor and Reports wheezing Musc Denies myalgias Neuro Reports Normal hearing present and Denies headache(s) Endo Denies excessive sweating Wero/Lymph Denies lymphadenopathy Aller/Immun Denies itchy eyes, Denies seasonal rhinorrhea and Reports wheezing Physical Exam Vital Signs: Last Vital Signs Pulse 97 02/09/25 14:50 BP 136/64 02/09/25 14:50 Pulse Ox 97 02/09/25 14:50 Oxygen Delivery Method Room Air 02/09/25 14:50 BMI result Body Mass Index 42.6 Const General: cooperative, healthy appearing, comfortable, no acute distress, well developed and alert Nutritional Appearance: obese Orientation/consciousness: patient oriented x3 Limitations: no limitations HEENT Head: Yes normal to inspection, Yes normocephalic and Yes atraumatic Ears: hearing grossly normal bilaterally and external ears normal Eyes General: appearance normal, both eyes and all related structures Eyelids: Yes eyelids normal Sclerae: sclerae normal EOM: EOMs intact bilaterally Neck Neck: Yes normal visual inspection and Yes no lymphadenopathy Lymphatic: no lymphadenopathy noted Chest Chest palpation & inspection: normal inspection of the chest Resp Other: persistent dry cough throughout visit, increasing during respiratory exam with postexhalation cough Effort & Inspection: normal respiratory effort, able to speak in complete sentences, no audible wheezes, Actively coughing, no stridor, not tachypneic, no tripod positioning and no use of accessory muscles Auscultation: diminished lung sounds Cardio Jugular venous distension: no JVD Rate: regular rate Rhythm: regular rhythm Skin Other: warm, dry General skin exam: no rashes or lesions noted Neuro General: patient oriented x3 Cranial nerves: Yes Normal hearing present Cognition (Neuro): normal cognition Gait exam (Neuro): Normal gait present Extrem General: Yes normal to inspection, Yes capillary refill normal, Yes no clubbing, cyanosis or edema and Yes no pedal edema Psych Appearance: grossly normal and well kempt Speech and movement: Normal speech and movement present and Clear speech present Affect: normal affect Attitude: cooperative Thought process: Normal thought process present Thought content: Normal thought content present Insight: Good insight present (Psych) Judgement: Good judgement present (Psych) Assessment & Plan Assessment & Plan (1) Asthma: Code(s): J45.909 - Unspecified asthma, uncomplicated Category: Medical (2) Chronic cough: Code(s): R05.3 - Chronic cough Category: Medical (3) Idiopathic urticaria: Code(s): L50.1 - Idiopathic urticaria Category: Medical Plan Radha continues with chronic dry hacking persistent cough since August that had resolved completely with prednisone. Again reviewed CT chest which report states unremarkable however note of evolving inflammatory/infectious process in the RLL, suggestive of evolving ILD. Will send for CTD workup. She would like to defer high doses of prednisone and agreeable to lower doses. Will send in. We did review the likelihood of higher doses if her cough persists. Encouraged to continue Symbicort. Will consider PFT in the future, unlikely she would be able to complete with symptoms. Encouraged patient to restart ICS/LABA. All questions were answered and patient is in agreement of plan. Will follow up in 4 weeks or sooner if needed. Medications: New prednisone see taper instructions 10 mg x 5 days, then 5 mg x 5 days 5 mg PO DIRECTED 15 tabs 0RF Coding Level of Care Code Est Pt Level 4 (28511) Diagnoses Asthma J45.909 Chronic cough R05.3 Idiopathic urticaria L50.1
[2025-02-09 14:50] VITALS: BP 136/64; PULSE 97; O2SAT 97; BMI 42.6
== END 2025-02-09 15:27 | disposition home or self-care (01) ==
LOC: HO.HPSW 14:38
PROVIDERS: PCP Internal Medicine; Visit Provider Nurse Practitioner Family
DX: J45.909 Unspecified asthma, uncomplicated (principal); R05.3 Chronic cough; L50.1 Idiopathic urticaria
CPT/HCPCS: 99214

== ENCOUNTER → 2025-02-09 14:36 | Outpatient (BNVA) | payer MEDICARE, SELFPAY | PROVIDERS: PCP Internal Medicine; Visit Provider Nurse Practitioner Family | DX: J45.909 Unspecified asthma, uncomplicated (principal); L50.1 Idiopathic urticaria; R05.3 Chronic cough | CPT/HCPCS: 99212 ==

== ENCOUNTER 2025-02-16 08:59 | Outpatient (AMB) | payer MEDICARE, SELFPAY ==
--- OUTSIDE RECORDS SUMMARY | 2025-01-08 03:30 | XMS_ITS ---
Author Organization Ilir Hodge MD Address [address] [place] [phone] Care Team Providers Care Cemetery Workers Supervisor Name Role Phone Ilir Hodge Primary Care Provider Results Component Value Reference Range Notes Complete Blood Count Auto Di ff Reviewed date:01/08/2025 12:36:23 PM Interpretation: Performing Lab:[facility], [address] [place] [phone] Notes/Report: White Blood Count 6.5 4.8-10.8 X10*3/uL [...] NRBC Abs Auto 0.000 0.0-0.012 X10*3/uL Comprehensive [place]. Panel Fa st Reviewed date:01/10/2025 07:02:22 PM Interpretation: Performing Lab:[facility], [address] [place] [phone] Notes/Report: Sodium 144 135-145 mmol/L Potassium 4.7 [...] Panel Reviewed date:01/08/2025 05:12:45 PM Interpretation: Performing Lab:[facility], [address] [place] [phone] Notes/Report: Triglycerides 96 <150 mg/dL Desirable Triglyceride: [...] Total Reviewed date:01/08/2025 05:13:08 PM Interpretation: Performing Lab:[facility], [address] [place] [phone] Notes/Report: Vitamin D 25-OH Total 20.3 >30 [...] Random Reviewed date:01/08/2025 12:34:10 PM Interpretation: Performing Lab:[address] [phone] Notes/Report: Creatinine Urine 177.53 Microalbumin Urine 293.0 Microalbum/Creatinine Ratio Ur 165.0 <30 ug/mg cr Albumin/Creatinine Ratio Reference Ranges: Normal: < 30 ug/mg creatinine Microalbuminuria: 30 - 300 ug/mg creatinine Clinical Albuminuria: > 300 ug/mg creatinine Hemoglobin A1c Reviewed date:01/08/2025 03:03:50 PM Interpretation: Performing Lab:[address] [phone] Notes/Report: Hemoglobin A1c % 7.0 <6.0 % [...] average glucose, using the formula of the X3K-Poxsvxe Average Glucose study (ADAG), Diabetes Care, Vol.31,#8, Mar. 2007 UA ClnCatch+Micro w/rflx Cul t Reviewed date:01/08/2025 12:35:06 PM Interpretation: Performing Lab:[address] [phone] Notes/Report: Urine, Clean Catch Color Urine Yellow Appearance Urine Hazy PH 6.0 5.0-9.0 Glucose Urine UA Negative Negative mg/dL Urine Blood Negative Negative Specific [place] - Urine 1.025 1.005-1.025 Urine Protein 30 [...] Location Date Provider Diagnosis Ilir Hodge MD [address] [place] [phone] 01/08/2025 Ilir Hodge Blood tests for rout [...] Treatment Next Appt Details Provider Name:Ilir alford, 02/19/2025 09:15:00 AM, [address] [place] [address], [address], [phone], Provider Name:Ilir alford, 07/19/2025 07:15:00 AM, [address] [place] [address], [phone], Provider Name:Ilir alford, 01/11/2026 07:15:00 AM, [address] [place] [address], [phone], Provider Name:Ilir alford, 01/18/2026 09:30:00 AM, [address] [place] [address], [phone], Progress Notes * SAVANNAH SIFUENTES EDOB: (64 yo F)Acc No.[id number]:01/08/2025 Progress Note Patient: SAVANNAH BRAR Provider: Lizbeth Hodge MD :1960 A ge:64 Y S ex:Female Date:01/08/2025 Address:[address] [place], [place] [address]Louise wale [id number] Subjective: * Chief Complaints: * 1 . [...] - 01/08/2025 07:30 AM) L AB: Comprehensive [place]. Panel Fast (Collection Date & Time - [...] - 01/08/2025 07:30 AM) L AB: Comprehensive [place]. Panel Fast (Collection Date & Time - [...] - 01/08/2025 07:30 AM) L AB: Comprehensive [place]. Panel Fast (Collection Date & Time - [...] - 01/08/2025 07:30 AM) L AB: Comprehensive [place]. Panel Fast (Collection Date & Time - [...] MD Date: 0 01/08/2025 Generated for Valentin medina/Alexia/Amberitting on: 0 02/16/2025 09:08 AM EDT
--- NOTE | 2025-02-16 07:57 | A.OFFVIS_ITS ---
Vital Signs 02/16/25 09:19 Height 5 ft 3.5 in Weight 240 lb 4.862 oz BMI 41.9 BP 130/84 Blood Pressure Location Rt brachial Position Sitting Pulse 85 Pulse Source Pulse Oximeter Pulse Oximetry (%) 95 Oxygen Delivery Method Room Air Intake Visit Reasons: DM Intake Note: Patient presents today for a follow-up on Type 2 Diabetes Mellitus: Last Diabetic eye exam was on: DUE, appt coming up Last Podiatry exam was on: Patient does not see a Clinical Documentation Specialist Most recent HbA1c: 7.0%, 01/08/2025 Random Glucose: 175 mg/dL Non Food Receiving Clerk Required: No Accompanied by: Self / Same As Patient Allergies Penicillins (PENICILLINS) Allergy (Severe, Verified 02/16/25 09:20) RASH Sulfa (Sulfonamide Antibiotics) (SULFA (SULFONAMIDE ANTIBIOTICS)) Allergy (Severe, Verified 02/16/25 09:20) THROMBOCYTOPENIA, severe penicillin V Allergy (Unknown, Verified 02/16/25 09:20) rash HPI Comments Details: Patient is 64 yo female with insulin deficent DM diagnosed about 30 years ago who presents for management of diabetes. She was last seen 10/12/24. Hgb A1C 02/16/25 7%, 10/12/24 10.5%.. She is on an ilet pump and had been doing well since her last visit C-peptide 2021 0.26 negative esau D and negative islet cell antibody She is on a jennifer insertion site. Carries extra insertion site. Carries glucometer Retinopathy: last eye exam one year ago february Krishna neuropathy: Symptoms reported: denies numbness, tingling, cramping in lower extremities Has nephropathy: 01/08/25 eGFR>60 07/03/24 462 Has HLD on statin and Zetia with most recent LDL 122 01/08/25 Denies dyspnea, chest pain or symptoms of claudication Hives better She is seeing a starch cooker for interstitial lung disease. She is currently on prednisone 5mg daily which has increased her insulin requirements which the pump has been able to accommodate. Cough has not improved when she is off prednisone. She trialed stopping lisinopril for one month and no change in cough Exercise: Walks dogs for 1/2 hour on most days. 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 HLD (hyperlipidemia) Hypertension Asthma Nephrolithiasis Diabetes Surgical History History of knee replacement Family History Family/Other No known health problems Social History Household Members: Spouse Housing: House Do you presently have visiting nurse or other home services: No Alcohol intake: never Patient Tobacco Use Status: Never used Tobacco service: No Current occupational status: disabled Physical Exam Vital Signs: Last Vital Signs Pulse 85 02/16/25 09:19 BP 130/84 02/16/25 09:19 Pulse Ox 95 02/16/25 09:19 Oxygen Delivery Method Room Air 02/16/25 09:19 BMI result Body Mass Index 41.9 Results Reviewed Results Reviewed: Laboratory Last Values Glucose (Clinic) 175 mg/dL (60-115) H 02/16/25 09:31 Assessment & Plan Assessment & Plan (1) 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 A1c in the office today is 7% and she is doing well. Her insulin requirements have increased she is on prednisone 5 mg daily for interstitial lung disease. She is on an ZION inhibitor for macro albuminuria and has trialed 1 month to come office to see if this improved her cough which it had no effect so she is back on this. She has follow up with pulmonology. She was reminded that if she does not have a sensor actively pair to her pump, that she needs to manually enter blood sugar readings every 4 hours in order for the pump to be operational Medications: New ezetimibe (Zetia) 10 mg PO DAILY 30 tabs 11RF 30 days Changed From insulin lispro (Humalog U-100 Insulin) infuse up to 110 units via insulin pump subcutaneously; 30 mL 3RF E11.9 - Type 2 diabetes mellitus without complications To insulin lispro (Humalog U-100 Insulin) infuse up to 130 units via insulin pump subcutaneously; 40 mL 3RF 30 days E11.9 - Type 2 diabetes mellitus without complications Discontinued pen needle, diabetic (BD Ultra-Fine Tammy Pen Needle) Discontinued Reason: Duplicate As directed four times a day 125 ea 12RF E11.65 - Type 2 diabetes mellitus with hyperglycemia, Z79.4 - [facility] (current) use of insulin pen needle, diabetic (BD Ultra-Fine Mini Pen Needle) Discontinued Reason: Duplicate As directed 4 times a day 150 ea 3RF Patient Instructions: The patient was counseled to achieve a target A1C of 7% (154 avg). Fasting blood sugars should be 90-130 in the morning and less than 180 two hours after meals. Reviewed the relationship between poor diabetic control and the development of complications. Carry a sugar source Symptoms of DKA (diabetic ketoacidosis): early: frequent urination, dry mouth, fatigue, feeling ill, severe symptoms: ketones in the urine, abdominal pain, nausea, vomiting and weakness. It is important to hydrate with sugar free liquids every 15-30 minutes and bring the sugars down to normal levels. If you are moderate or severe with ketones or unable to bring glucose to less than 200, go to the emergency room. Troubleshooting after starting new pod or inserting new insulin set: Occlusion, adhesive tape sensitivity, redness Check BG 2 hours after site change Safety information: Importance of a backup plan, for manual injections, proper prescriptions and emergency supplies ketone strips, and rules for testing for ketones Check your feet daily looking for any signs of infection, drainage, redness, ulceration and seek medical attention if this occurs. Break in shoes gradually and do not wear open-toed shoes or walk stocking footed or barefooted. 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
[2025-02-16 09:19] VITALS: BP 130/84; PULSE 85; O2SAT 95; BMI 41.9
[2025-02-16 09:35] LABS: Glucose, Whole Blood 175 mg/dL (60-115)
== END 2025-02-16 10:05 | disposition home or self-care (01) ==
LOC: HO.ENCR 08:59
PROVIDERS: PCP Internal Medicine; Visit Provider Nurse Practitioner Adult Health
DX: E13.9 Other specified diabetes mellitus without complications (principal); S36.209S Unspecified injury of unspecified part of pancreas, sequela
CPT/HCPCS: 99214

== ENCOUNTER → 2025-02-16 08:59 | Outpatient (BNVA) | payer MEDICARE, SELFPAY | PROVIDERS: PCP Internal Medicine; Visit Provider Nurse Practitioner Adult Health | DX: E13.9 Other specified diabetes mellitus without complications (principal); S36.209D Unspecified injury of unspecified part of pancreas, subsequent encounter; Z96.41 Presence of insulin pump (external) (internal); Z79.4 Long term (current) use of insulin; Z79.52 Long term (current) use of systemic steroids | CPT/HCPCS: 82947; 99212 ==

== ENCOUNTER 2025-02-20 06:51 | Outpatient (REF) | payer MEDICARE, SELFPAY ==
[2025-02-20 07:41] LABS: Rheumatoid Factor < 13.0 IU/mL (<15.0)
[2025-02-21 15:34] LABS: Anti DNA DS Antibody <1 IU/mL; Antibody to SS-A Antigen <1.0 NEG AI (<1.0 NEG); Antibody to SS-B Antigen <1.0 NEG AI (<1.0 NEG); Scleroderma 70 Antibody <1.0 NEG AI (<1.0 NEG)
[2025-02-23 14:38] LABS: Anti Nuclear Antibody Screen POSITIVE (NEGATIVE)
[2025-02-26 20:08] LABS: Cyclic Citrullinated Peptide <16 UNITS
[2025-02-28 14:23] LABS: Asperg fumigatus Precip Abs NEGATIVE (NEGATIVE); Micropoly faeni Abs NEGATIVE (NEGATIVE); Pigeon serum Abs NEGATIVE (NEGATIVE); Saccharo pora viridis Abs NEGATIVE (NEGATIVE); Thermo candidus Abs NEGATIVE (NEGATIVE); Thermoa vulgaris #1 NEGATIVE (NEGATIVE)
== END 2025-02-20 06:52 | disposition home or self-care (01) ==
LOC: HO.LAB 06:51
PROVIDERS: PCP Internal Medicine; Visit Provider Nurse Practitioner Family
DX: J84.9 Interstitial pulmonary disease, unspecified (principal)
CPT/HCPCS: 36415; 86038; 86039; 86200; 86225; 86235; 86331; 86431; 86606; 86609

== ENCOUNTER 2025-02-26 08:18 | Outpatient (REF) | payer MEDICARE, SELFPAY ==
--- OUTSIDE RECORDS SUMMARY | 2025-02-19 05:15 | XMS_ITS ---
Author Organization Ilir Hodge MD Address [address] [place] [phone] Care Team Providers Care Pipe Installer Name Role Phone Ilir Hodge Primary [...] Sertraline HCl 100MG take 1 tablet by wa ut once daily for 90 days Orally [...] Location Date Provider Diagnosis Ilir Hodge MD [address] [place] [address] [place] [phone] 02/19/2025 Ilir Hodge Hives of unknown origin [...] (ICD-10 - R05.3) have suggested going to [place] 02/19/2025 Other need to speak to dr reeves at [facility] about her chest ct/ [...] regiment Persistent cough have suggested going to [facility] Other need to speak to dr reeves at [facility] about her chest ct/ Will call [facility] for request Next Appt Details Follow Up: 4 Weeks, Reason: Provider Name:Ilir alford, 03/22/2025 09:15:00 AM, [address] [place] [address], [address] [place] [address], [phone], Provider Name:Ilir alford, 07/19/2025 07:15:00 AM, [address] [place] [address], Suite [facility], [place], [place], [phone], Provider Name:Ilir alford, 01/11/2026 07:15:00 AM, [address] [place] [address], [address] [place] [address], [phone], Provider Name:Ilir Forrester ier, 01/18/2026 09:30:00 AM, [address], [address], [place], [place], [phone], Progress Notes * SAVANNAH SIFUENTES EDOB: (64 yo F)Acc No.[id number]:02/19/2025 Progress Notes Patient: SAVANNAH BRAR Provider: Lizbeth Hodge MD :1960 A ge:64 Y S ex:Female Date:02/19/2025 Address:[address] [place] [address] Subjective: * Chief Complaints: * 4 WK [...] ersistent cough Notes: have suggested going to [place] 5. O thers Notes: need to speak to dr reeves at [facility] about her chest ct/ Will call [facility] for request ? * Procedure Codes: * Follow Up: 4 Weeks * * Sign off status: Completed true * Provider: Lizbeth Hodge MD Date: 0 02/19/2025 Generated for Valentin medina/Alexia/Amberitting on: 0 02/26/2025 08:22 AM EDT History and Physical Notes * [...]
--- NOTE | ~2025-02-26 | US_ITS ---
CLINICAL HISTORY: ABD MASS US abdomen complete Comparison: None provided Findings: The visualized pancreas is normal. The aorta and inferior vena cava are normal caliber. The liver is increased in size and echotexture, measuring up to 19 cm There is no intrahepatic bile duct dilatation. The common duct is 2.5 mm in diameter. The gallbladder is normal. There is no sonographic Alfaro sign. The main portal vein is antegrade. The right kidney is 11.5 cm in length. The left kidney is 10.9 cm in length. Multiple benign cysts, the largest within the midpole measuring up to 3 cm The spleen is normal. No ascites. IMPRESSION: No acute findings. Mild hepatomegaly and hepatic steatosis. Benign left renal cyst. This document has been electronically signed by: Rell Pack MD on 02/27/2025 11:32:23
== END 2025-02-26 08:19 | disposition home or self-care (01) ==
LOC: HO.HMGCX 08:18
PROVIDERS: PCP Internal Medicine; Visit Provider Internal Medicine
DX: R19.09 Other intra-abdominal and pelvic swelling, mass and lump (principal)
CPT/HCPCS: 76700

== ENCOUNTER → 2025-02-26 08:21 | Outpatient (BNV) | payer MEDICARE, SELFPAY | PROVIDERS: PCP Internal Medicine; Visit Provider Radiology Vascular & Interventional Radiology | DX: D30.01 Benign neoplasm of right kidney (principal) | CPT/HCPCS: 76700 ==

== ENCOUNTER 2025-05-08 15:13 | Outpatient (AMB) | payer MEDICARE, SELFPAY ==
--- OUTSIDE RECORDS SUMMARY | 2025-01-08 03:30 | XMS_ITS ---
Author Organization Ilir Hodge MD Address [address] [place] [phone] Care Team Providers Care Proration Clerk Name Role Phone Ilir Hodge Primary Care Provider [phone] Results Component Value Reference Range Notes Complete Blood Count Auto Di ff Reviewed date:01/08/2025 12:36:23 PM Interpretation: Performing Lab:[facility], [address] [place] [phone] Notes/Report: White Blood Count 6.5 4.8-10.8 X10*3/uL [...] NRBC Abs Auto 0.000 0.0-0.012 X10*3/uL Comprehensive [place]. Panel Fa st Reviewed date:01/10/2025 07:02:22 PM Interpretation: Performing Lab:[facility], [address] [place] [phone] Notes/Report: Sodium 144 135-145 mmol/L Potassium 4.7 [...] Panel Reviewed date:01/08/2025 05:12:45 PM Interpretation: Performing Lab:[facility], [address] [place] [phone] Notes/Report: Triglycerides 96 <150 mg/dL Desirable Triglyceride: [...] Total Reviewed date:01/08/2025 05:13:08 PM Interpretation: Performing Lab:[facility], [address] [place] [phone] Notes/Report: Vitamin D 25-OH Total 20.3 >30 [...] Random Reviewed date:01/08/2025 12:34:10 PM Interpretation: Performing Lab:[address] [phone] Notes/Report: Creatinine Urine 177.53 Microalbumin Urine 293.0 Microalbum/Creatinine Ratio Ur 165.0 <30 ug/mg cr Albumin/Creatinine Ratio Reference Ranges: Normal: < 30 ug/mg creatinine Microalbuminuria: 30 - 300 ug/mg creatinine Clinical Albuminuria: > 300 ug/mg creatinine Hemoglobin A1c Reviewed date:01/08/2025 03:03:50 PM Interpretation: Performing Lab:[address] [phone] Notes/Report: Hemoglobin A1c % 7.0 <6.0 % [...] average glucose, using the formula of the Q8P-Fhfegse Average Glucose study (ADAG), Diabetes Care, Vol.31,#8, Mar. 2007 UA ClnCatch+Micro w/rflx Cul t Reviewed date:01/08/2025 12:35:06 PM Interpretation: Performing Lab:[address] [phone] Notes/Report: Urine, Clean Catch Color Urine Yellow Appearance Urine Hazy PH 6.0 5.0-9.0 Glucose Urine UA Negative Negative mg/dL Urine Blood Negative Negative Specific [place] - Urine 1.025 1.005-1.025 Urine Protein 30 [...] Location Date Provider Diagnosis Ilir Hodge MD [address] [place] [phone] 01/08/2025 Ilir Hodge Blood tests for rout [...] Treatment Next Appt Details Provider Name:Ilir alford, 05/14/2025 09:00:00 AM, [address] [place] [address], [phone], Provider Name:Ilir alford, 07/19/2025 07:15:00 AM, [address] [place] [address], [phone], Provider Name:Ilir alford, 01/11/2026 07:15:00 AM, [address] [place] [address], [phone], Provider Name:Ilir alford, 01/18/2026 09:30:00 AM, [address] [place] [address], [phone], Progress Notes * SAVANNAH SIFUENTES EDOB: (64 yo F)Acc No.[id number]:01/08/2025 Progress Note Patient: SAVANNAH BRAR Provider: Lizbeth Hodge MD :1960 A ge:64 Y S ex:Female Date:01/08/2025 Address:[address] [place], [place] [address]Louise wale [id number] Subjective: * Chief Complaints: * 1 . [...] - 01/08/2025 07:30 AM) L AB: Comprehensive [place]. Panel Fast (Collection Date & Time - [...] - 01/08/2025 07:30 AM) L AB: Comprehensive [place]. Panel Fast (Collection Date & Time - [...] - 01/08/2025 07:30 AM) L AB: Comprehensive [place]. Panel Fast (Collection Date & Time - [...] - 01/08/2025 07:30 AM) L AB: Comprehensive [place]. Panel Fast (Collection Date & Time - [...] 0 01/08/2025 Generated for Valentin medina/Alexia/Aries on: 0 05/08/2025 05:35 PM EDT
--- OUTSIDE RECORDS SUMMARY | 2025-01-15 05:30 | XMS_ITS ---
Author Organization Ilir Hodge MD Address [address] [place] [phone] Care Team Providers Care Application Specialist Name Role Phone Ilir Hodge Primary Care Provider [phone] Allergies Allergen (clinical drug ingredient) Drug/Non Drug [...] Sertraline HCl 100MG take 1 tablet by [facility] once daily for 90 days Orally [...] Status W/U Status Risk Notes Problem Urticaria (998738772) Hives of unknown origin (L50.9) Active confirmed Problem Abdominal mass (finding) (856503662) Abdominal mass of other site (R19.09) Active confirmed Vital Signs Blood pressure systolic 178 mm Hg 01/16/20 25 Blood pressure diastolic 80 mm Hg 025 Height 64 in 01/15/2025 Weight 236 lbs 01/15/2025 BMI 40.5 kg/m2 01/15/2025 Encounters Encounter Location Date Provider Diagnosis Ilir Hodge MD [address] [place] [address] [address] [place], [place] [phone] 01/15/2025 Ilir Hodge Annual physical exam Z00.00 [...] diagnostic testing, THE ORDER WAS FAXED TO [facility], 01/15/2025 Mild intermittent asthma, uncomplicated [...] Sertraline HCl 100MG take 1 tablet by [facility] once daily for 90 days Orally Once a day Albuterol Sulfate HFA 108 (9 0 Base) MCG/ACT 2 puffs as needed Inhalation every 4 hrs Treatment Notes Assessment Notes Annual physical exam labs reviewed and d iscussed with patient Abdominal mass of other site pending josé antonio gnostic testing, THE ORDER WAS FAXED TO [facility], Mild intermittent asthma, uncomplicated followed by pulmonary Hives of unknown origin waiting for mustapha rgy consultt Essential hypertension stable, will cont inue current regiment Depression stable, will continu e current regiment Type 2 diabetes mellitus wit hout complications stable, will continue current regiment Depression screening negative screen Pending Test Test Name Order Date US [facility] 01/15/2025 Next Appt Details Follow Up: 4 Weeks, Reason: Provider Name:Ilir alford, 05/14/2025 09:00:00 AM, [address] [place] [address], [address], [phone], Provider Name:Ilir alford, 07/19/2025 07:15:00 AM, [address] [place] [address], [place] [address], [place], [place], [phone], Provider Name:Ilir alford, 01/11/2026 07:15:00 AM, [address] [place] [address], [place] [address], [place], [place], [phone], Provider Name:Ilir alford, 01/18/2026 09:30:00 AM, [address], [address], [place], [phone], Progress Notes * SAVANNAH SIFUENTES EDOB: (64 yo F)Acc No.[id number]:01/15/2025 Progress Notes Patient: SAVANNAH BRAR Provider: Lizbeth Hodge MD :1960 A ge:64 Y S ex:Female Date:01/15/2025 Address:[address] [place] [address] [address] [id number] Subjective: * Chief Complaints: * A NNUAL [...] full-time. Pets: none. Travel outside of the [place]: no. * Medications: T akingpredniSONE 10 [...] mg/dL Urine Blood Negative Negative - Specific [place] - Urine 1.025 1.005-1.025 - Urine Protein [...] Cholesterol 56 >40 - mg/dL L ab:Comprehensive [place]. Panel Fast (Order Date - 01/08/2025) (Collection [...] upper quadrant. RECTAL EXAM: d one by encoding clerk. FEMALE GENITOURINARY: d one by encoding clerk. EXTREMITIES: n o clubbing, cyanosis, or edema. [...] diagnostic testing, THE ORDER WAS FAXED TO [facility], ?? 3.?Mild intermittent asthma, uncomplicated? [...] provided?Yes, Lokesh salgado Normal BMI Follow-up Lizbeth cruz encouragement to exercise. * Follow Up: 4 Weeks * * Sign off status: Completed true * Provider: Lizbeth Hodge MD Date: 0 01/15/2025 Generated for Valentin medina/Alexia/Majorsmitting on: 0 05/08/2025 05:35 PM EDT History and Physical Notes * [...] mass, no lump RECTAL EXAM: done by encoding clerk FEMALE GENITOURINARY: done by encoding clerk ORAL CAVITY: mucosa moist
--- OUTSIDE RECORDS SUMMARY | 2025-02-19 05:15 | XMS_ITS ---
Author Organization Ilir Hodge MD Address [address] [place] [phone] Care Team Providers Care Rigging Worker Name Role Phone Ilir Hodge Primary Care Provider [phone] Allergies Allergen (clinical drug ingredient) Drug/Non Drug [...] Sertraline HCl 100MG take 1 tablet by co ut once daily for 90 days Orally [...] Location Date Provider Diagnosis Ilir Hodge MD [address] [place] [address] [place] [phone] 02/19/2025 Ilir Hodge Hives of unknown origin [...] (ICD-10 - R05.3) have suggested going to [place] 02/19/2025 Other need to speak to dr reeves at [facility] about her chest ct/ Will [...] regiment Persistent cough have suggested going to [place] Other need to speak to dr reeves at [facility] about her chest ct/ Will call [facility] for request Next Appt Details Follow Up: 4 Weeks, Reason: Provider Name:Ilir alford, 05/14/2025 09:00:00 AM, [address] [place] [address], [address] [place] [address], [phone], Provider Name:Ilir alford, 07/19/2025 07:15:00 AM, [address] [place] [address], [address] [facility], [place], [place], [phone], Provider Name:Ilir alford, 01/11/2026 07:15:00 AM, [address] [place] [address], [address] [place] [address], [phone], Provider Name:Ilir Forrester ier, 01/18/2026 09:30:00 AM, [address], [address], [place], [place], [phone], Progress Notes * SAVANNAH SIFUENTES EDOB: (64 yo F)Acc No.[id number]:02/19/2025 Progress Notes Patient: SAVANNAH BRAR Provider: Lizbeth Hodge MD :1960 A ge:64 Y S ex:Female Date:02/19/2025 Address:[address] [place] [address] Subjective: * Chief Complaints: * 4 WK [...] ersistent cough Notes: have suggested going to [place] 5. O thers Notes: need to speak to dr reeves at [facility] about her chest ct/ Will call [facility] for request ? * Procedure Codes: * Follow Up: 4 Weeks * * Sign off status: Completed true * Provider: Lizbeth Hodge MD Date: 0 02/19/2025 Generated for Valentin medina/Alexia/Amberitting on: 0 05/08/2025 05:35 PM EDT History [...]
--- OUTSIDE RECORDS SUMMARY | 2025-03-05 07:24 | XMS_ITS ---
Author Organization Ilir Hodge MD Address [address] [place] [phone] Care Team Providers Care Education Courses Sales Representative Name Role Phone Ilir Hodge Primary Care Provider [phone] Encounters Encounter Location Date Provider Diagnosis Ilir Hodge MD [address] [place] [phone] 03/05/2025 Ilir Hodge Plan Of Treatment Next Appt Details Provider Name:Ilir alfodr, 05/14/2025 09:00:00 AM, [address], [address], [place], [place], [phone], Provider Name:Ilir alford, 07/19/2025 07:15:00 AM, [address], [address], [place], [place], [phone], Provider Name:Ilir Forrester ier, 01/11/2026 07:15:00 AM, [address], [address], [place], [phone], Provider Name:Ilir Forrester ier, 01/18/2026 09:30:00 AM, [address] [place] [address], [address], [place], [phone], Progress Notes * SAVANNAH SIFUENTES EDOB: (64 yo F)Acc No.[id number]:03/05/2025 Patient: Janine FLORESITAANNETTE SAVANNAH Watson :1960 A ge:64 Y S ex:Female Address:[address] [place] [address] ERNESTINE Hilario, [address] * true * Date: Generated for Valentin medina/Alexia/eTransmitting on: 0 05/08/2025 05:35 PM EDT
--- OUTSIDE RECORDS SUMMARY | 2025-03-22 07:30 | XMS_ITS ---
Author Organization Ilir Hodge MD Address [address] [place] [phone] Care Team Providers Care Calciner Operator Helper Name Role Phone Ilir Hodge Primary Care [...] Risk Notes Problem Computed tomography result abnormal ([id number]) Abnormal CAT scan (R93.89) Active confirmed Vital Signs Blood pressure systolic 132 mm Hg 03/22/20 25 Blood pressure diastolic 86 mm Hg 025 Height 64 in 03/22/2025 Weight 245 lbs 03/22/2025 BMI 42.05 kg/m2 03/22/2025 Encounters Encounter Location Date Provider Diagnosis Ilir Hodge MD [address] [place] [address] [place] [phone] 03/22/2025 Ilir Hodge Abnormal CAT scan R93.89 [...] Up: 2 Months, Reason: Provider Name:Ilir alford, 05/14/2025 09:00:00 AM, [address] [place] [address], [address], [place], [place], [phone], Provider Name:Ilir alford, 07/19/2025 07:15:00 AM, [address] [place] [address], [address], [place], [place], [phone], Provider Name:Ilir alford, 01/11/2026 07:15:00 AM, [address] [place] [address], [address], [place], [place], [phone], Provider Name:Ilir alford, 01/18/2026 09:30:00 AM, [address] [facility], [address], [place], [place], [phone], Progress Notes * SAVANNAH SIFUENTES EDOB: 9 (64 yo F)Acc No.[id number]:03/22/2025 Progress Notes Patient: SAVANNAH BRAR Provider: Lizbeth Hodge MD :1960 A ge:64 Y S ex:Female Date:03/22/2025 Address:[address] [place], [place] [id number] Subjective: * Chief Complaints: * 4 week * HPI: S ymptom(s): patient is a 64 yo female here for 4 weel follow up visit/ still coughing. going to see electrician's helper. * ROS: G eneral/Constitutional: Denies C hills. [...] 03/22/2025 Generated for Valentin medina/Alexia/Amberitting on: 0 05/08/2025 05:35 PM EDT History and Physical Notes * HPI (History of Present Illness) Category Sub-Category Detail Notes Category Not es Symptom(s) patient is a 64 yo female here for 4 weel follow up visit/ still coughing. going to see electrician's helper Examination Category Sub-Category Detail Notes Category Not es General Examination GENERAL APPEARANCE: alert, w ell hydrated, in no distress HEART: regular rate and rhy thm, no murmurs, rubs, gallops LUNGS: clear to auscultatio n bilaterally, good air movement, no wheezes, rales, rhonchi SKIN: good turgor
[2025-05-08 15:24] VITALS: BP 182/110; PULSE 80; O2SAT 96; BMI 43.3
--- NOTE | 2025-05-08 15:24 | MHC.OFFVIS ---
Vital Signs 05/08/25 15:24 Height 5 ft 3.5 in Weight 248 lb 8 oz BMI 43.3 BP 182/110 H Blood Pressure Location Rt brachial Position Sitting Pulse 80 Pulse Source Pulse Oximeter Pulse Oximetry (%) 96 Oxygen Delivery Method Room Air Intake Visit Reasons: bronchitis Allergies Penicillins (PENICILLINS) Allergy (Severe, Verified 05/08/25 15:26) RASH Sulfa (Sulfonamide Antibiotics) (SULFA (SULFONAMIDE ANTIBIOTICS)) Allergy (Severe, Verified 05/08/25 15:26) THROMBOCYTOPENIA, severe penicillin V Allergy (Unknown, Verified 05/08/25 15:26) rash HPI HPI bronchitis: Details: Radha is a pleasant 64 year old female, never smoker, with underlying DMII h/o DKA, HTN and HLD. She has continued with persistent dry hacking cough for the past [address] 11/2024 suggestive of evolving ILD of RLL, initially report read as unremarkable however an addendum made on CT stating subtle areas of peripheral groundglass appearance RIGHT lower lobe. We had previously discussed this finding in addition to elevated VARUN being suggestive of an ILD. She has had resolution of cough with higher doses however recurred shortly after cessation. She continues with persistent coughing and is interested in higher doses of prednisone for an extended period of time as previously discussed. Given elevated VARUN patient was referred to Rheumatology and has an upcoming appt in July. She denies any visits to urgent care or hospitalizations related to respiratory distress since the last visit. Of note, she has been evaluated by senior qualitative researcher with no significant findings on initial SPT. 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 HLD (hyperlipidemia) Hypertension Asthma Nephrolithiasis Diabetes Surgical History History of knee replacement Family History Family/Other No known health problems Social History Household Members: Spouse Housing: House Do you presently have visiting nurse or other home services: No Alcohol intake: never Patient Tobacco Use Status: Never used Tobacco service: No Current occupational status: disabled Review of Systems Const Denies chills, Denies excessive sweating, Denies fever(s), Denies headache(s) and Denies night sweats Eyes Denies dry eyes, Denies irritation and Denies itchy eyes ENT Reports Normal hearing present, Denies headache(s), Denies nasal congestion, Denies nasal discharge, Denies post nasal drip and Denies sore throat Card Denies chest pain, Denies chest pain at rest, Denies chest pain with activity, Denies claudication, Denies leg edema, Denies dyspnea on exertion, Denies orthopnea and Denies paroxysmal nocturnal dyspnea Resp Denies change in phlegm color, Denies chest congestion, Reports cough, Denies hemoptysis, Denies excessive phlegm production, Denies pain on inspiration, Denies pain with cough, Denies dyspnea on exertion, Denies stridor and Reports wheezing Musc Denies myalgias Neuro Reports Normal hearing present and Denies headache(s) Endo Denies excessive sweating Wero/Lymph Denies lymphadenopathy Aller/Immun Denies itchy eyes, Denies seasonal rhinorrhea and Reports wheezing Physical Exam Vital Signs: Last Vital Signs Pulse 80 05/08/25 15:24 BP 182/110 H 05/08/25 15:24 Pulse Ox 96 05/08/25 15:24 Oxygen Delivery Method Room Air 05/08/25 15:24 BMI result Body Mass Index 43.3 Const General: cooperative, healthy appearing, comfortable, no acute distress, well developed and alert Nutritional Appearance: obese Orientation/consciousness: patient oriented x3 Limitations: no limitations HEENT Head: Yes normal to inspection, Yes normocephalic and Yes atraumatic Ears: hearing grossly normal bilaterally and external ears normal Eyes General: appearance normal, both eyes and all related structures Eyelids: Yes eyelids normal Sclerae: sclerae normal EOM: EOMs intact bilaterally Neck Neck: Yes normal visual inspection and Yes no lymphadenopathy Lymphatic: no lymphadenopathy noted Chest Chest palpation & inspection: normal inspection of the chest Resp Other: persistent dry cough throughout visit, increasing during respiratory exam with postexhalation cough Effort & Inspection: normal respiratory effort, able to speak in complete sentences, no audible wheezes, Actively coughing, no stridor, not tachypneic, no tripod positioning and no use of accessory muscles Auscultation: diminished lung sounds Cardio Jugular venous distension: no JVD Rate: regular rate Rhythm: regular rhythm Skin Other: warm, dry General skin exam: no rashes or lesions noted Neuro General: patient oriented x3 Cranial nerves: Yes Normal hearing present Cognition (Neuro): normal cognition Gait exam (Neuro): Normal gait present Extrem General: Yes normal to inspection, Yes capillary refill normal, Yes no clubbing, cyanosis or edema and Yes no pedal edema Psych Appearance: grossly normal and well kempt Speech and movement: Normal speech and movement present and Clear speech present Affect: normal affect Attitude: cooperative Thought process: Normal thought process present Thought content: Normal thought content present Insight: Good insight present (Psych) Judgement: Good judgement present (Psych) Assessment & Plan Assessment & Plan (1) Interstitial lung disease: Code(s): J84.9 - Interstitial pulmonary disease, unspecified Category: Medical (2) Asthma: Code(s): J45.909 - Unspecified asthma, uncomplicated Category: Medical (3) Chronic cough: Code(s): R05.3 - Chronic cough Category: Medical (4) Idiopathic urticaria: Code(s): L50.1 - Idiopathic urticaria Category: Medical Plan Radha continues with chronic dry hacking persistent cough since August that had resolved completely with prednisone. Again reviewed CT chest with likely an evolving ILD of the RLL and significantly elevated VARUN. We discussed treating with high doses of prednisone 40 mg x 1 month then repeat chest CT to assess for improvements. She is requesting this order to be sent to [facility]. Reviewed potential short term and [facility] effects of prednisone. She is aware to call if she can not tolerate doses. Encouraged patient to reach out to endocrinology to inform them of the use of prednisone. Advised to closely monitor blood glucose. Patient's BP significantly elevated initially, repeat 160/90, patient states she was involved in a stressful meeting prior to this appointment and has been compliant with medications. Encouraged patient to monitor BP at home and call PCP if continues to be elevated. Advised to continue Symbicort. Will consider PFT in the future, unlikely she would be able to complete with symptoms. All questions were answered and patient is in agreement of plan. Will follow up to review CT results or sooner if needed. Orders: Orders CT chest wo IV con 4 Weeks J84.9 - Interstitial pulmonary disease, unspecified Medications: New prednisone 40 mg (2 x 20 mg) PO DAILY 60 tabs 1RF Coding Level of Care Code Est Pt Level 4 (52479) Diagnoses Interstitial lung disease J84.9 Asthma J45.909 Chronic cough R05.3 Idiopathic urticaria L50.1
--- OUTSIDE RECORDS SUMMARY | 2025-05-08 17:36 | XMS_ITS | Patient Health Record ---
Author Organization Ilir Hodge MD Address [address] [place], [place] [id number] Care Team Providers Care Hat Braider Name Role Phone Ilir Hodge Primary Care [...] Panel Reviewed date:07/06/2024 04:44:07 PM Interpretation: Performing Lab:[facility], [address] [place] [phone] Notes/Report: Bilirubin Total 1.0 0.0-1.0 mg/dL Bilirubin Direct 0.3 0.0-0.5 mg/dL Aspartate Amino Transferase 34 5-31 U/L Alanine Aminotransferase 23 0-31 U/L Total Protein 7.1 6.5-8.0 g/dL Albumin Level 4.0 3.5-5.0 g/dL Alkaline Phosphatase 80 39-117 U/L Glucose Fasting Reviewed date:07/06/2024 04:39:33 PM Interpretation: Performing Lab:[facility], [address] [place] [phone] Notes/Report: Glucose Fasting 103 60-99 mg/dL A fasting glucose from 100-125 mg/dl is considered impaired (pre-diabetes). Lipid Panel with Reflex Reviewed date:07/06/2024 04:43:47 PM Interpretation: Performing Lab:[facility], [address] [place] [phone] Notes/Report: Triglycerides 105 <150 mg/dL Desirable Triglyceride: [...] A1c Reviewed date:07/06/2024 12:27:15 PM Interpretation: Performing Lab:[facility], [address] [place] [phone] Notes/Report: Hemoglobin A1c % 6.7 <6.0 % [...] average glucose, using the formula of the L9N-Cuwroif Average Glucose study (ADAG), Diabetes Care, Vol.31,#8, Mar. 2007 Complete Blood Count Auto Di ff Reviewed date:01/08/2025 12:36:23 PM Interpretation: Performing Lab:[facility], [address] [place] [phone] Notes/Report: White Blood Count 6.5 4.8-10.8 X10*3/uL [...] NRBC Abs Auto 0.000 0.0-0.012 X10*3/uL Comprehensive [place]. Panel Fa st Reviewed date:01/10/2025 07:02:22 PM Interpretation: Performing Lab:[facility], [address] [place] [phone] Notes/Report: Sodium 144 135-145 mmol/L Potassium 4.7 [...] Panel Reviewed date:01/08/2025 05:12:45 PM Interpretation: Performing Lab:[facility], [address] [place] [phone] Notes/Report: Triglycerides 96 <150 mg/dL Desirable Triglyceride: [...] Total Reviewed date:01/08/2025 05:13:08 PM Interpretation: Performing Lab:[address] [phone] Notes/Report: Vitamin D 25-OH Total 20.3 >30 [...] Random Reviewed date:01/08/2025 12:34:10 PM Interpretation: Performing Lab:[facility], [address] [place] [phone] Notes/Report: Creatinine Urine 177.53 Microalbumin Urine 293.0 Microalbum/Creatinine Ratio Ur 165.0 <30 ug/mg cr Albumin/Creatinine Ratio Reference Ranges: Normal: < 30 ug/mg creatinine Microalbuminuria: 30 - 300 ug/mg creatinine Clinical Albuminuria: > 300 ug/mg creatinine Hemoglobin A1c Reviewed date:01/08/2025 03:03:50 PM Interpretation: Performing Lab:[facility], [address] [place] [phone] Notes/Report: Hemoglobin A1c % 7.0 <6.0 % [...] average glucose, using the formula of the G6L-Ncdmark Average Glucose study (ADAG), Diabetes Care, Vol.31,#8, Mar. 2007 UA ClnCatch+Micro w/rflx Cul t Reviewed date:01/08/2025 12:35:06 PM Interpretation: Performing Lab:[facility], [address] [place] [phone] Notes/Report: Urine, Clean Catch Color Urine Yellow Appearance Urine Hazy PH 6.0 5.0-9.0 Glucose Urine UA Negative Negative mg/dL Urine Blood Negative Negative Specific [place] - Urine 1.025 1.005-1.025 Urine Protein 30 [...] Notes/Report: Value 90 Glucose, Whole Blood Reviewed date:06/14/2024 02:17:33 PM Interpretation: Performing Lab:[facility], [address] [place] [phone] Notes/Report: Glucose, Whole Blood 139 60-115 mg/dL METER #: [id number] Testing performed in the [facility], [facility]. Lipid Panel Reviewed date:07/03/2024 11:07:17 AM Interpretation: Performing Lab:[address] [phone] Notes/Report: Triglycerides 117 <150 mg/dL Desirable Triglyceride: [...] Thyroxine) Reviewed date:07/03/2024 11:15:23 AM Interpretation: Performing Lab:[facility], [address] [place] [phone] Notes/Report: Free T4 (Free Thyroxine) 1.14 0.71-1.85 ng/dL Thyroid Stimulating Hormone Reviewed date:07/03/2024 11:15:32 AM Interpretation: Performing Lab:[facility], [address] [place] [phone] Notes/Report: Thyroid Stimulating Hormone 1.60 0.32-4.0 uIU/mL TSH 3rd Generation ([facility] [employer]) Microalbumin, Random Reviewed date:07/03/2024 11:15:50 AM Interpretation: Performing Lab:[facility], [address] [place] [phone] Notes/Report: Creatinine Urine 155.38 Microalbumin Urine 462.0 Microalbum/Creatinine Ratio Ur 297.3 <30 ug/mg cr Albumin/Creatinine Ratio Reference Ranges: Normal: < 30 ug/mg creatinine Microalbuminuria: 30 - 300 ug/mg creatinine Clinical Albuminuria: > 300 ug/mg creatinine Luis A Garza Reviewed date:07/06/2024 12:26:46 PM Interpretation: Performing Lab:[facility], [address] [place] [phone] Notes/Report: Luis A Garza See Note Specimen held untested for 24 hours; Call to request Chemistry testing. Complete Blood Count Auto Di ff Reviewed date:08/14/2024 02:07:47 PM Interpretation: Performing Lab:[facility], [address] [place] [phone] Notes/Report: White Blood Count 7.2 4.8-10.8 X10*3/uL [...] Panel Reviewed date:08/14/2024 02:07:32 PM Interpretation: Performing Lab:[facility], [address] [place] [phone] Notes/Report: Bilirubin Total 0.7 0.0-1.0 mg/dL Bilirubin Direct 0.2 0.0-0.5 mg/dL Aspartate Amino Transferase 27 5-31 U/L Alanine Aminotransferase 25 0-31 U/L Total Protein 7.1 6.5-8.0 g/dL Albumin Level 4.0 3.5-5.0 g/dL Alkaline Phosphatase 110 39-117 U/L Basic Metabolic Panel Reviewed date:08/14/2024 02:07:16 PM Interpretation: Performing Lab:[facility], [address] [place] [phone] Notes/Report: Sodium 142 135-145 mmol/L Potassium 4.3 [...] Sensitivity Reviewed date:08/14/2024 02:07:24 PM Interpretation: Performing Lab:[facility], [address] [place] [phone] Notes/Report: Troponin-I High Sensitivity 6.1 <3.5-17.0 ng/L The Romo high sensitivity Troponin-I results should be used in conjunction with other diagnostic information such as ECG, clinical observations and information, and patient symptoms to aid in the diagnosis of AK. CT head/brain wo con Reviewed date:08/15/2024 12:24:33 PM Interpretation: Performing Lab: Notes/Report: [address] [address] [address] Scan Report Signed Patient: Radha Sifuentes MR#: [id number] 93 : 1960 Acct:[id number] Age/Sex: 64 / F ADM Date: 08/14/24 Loc: HO.ED Attending Dr: Ordering Physician: Riley Cummings Date of Service: 08/14/24 Procedure(s): CT head/brain wo IV con Accession Number(s): [id number] cc: Riley Cummings; Ilir Hodge MD EXAMINATION: [...] by: Carlos Huitron MD 08/14/2024 05:48 PM [facility] Dictated By: Carlos Huitron MD Signed By: <Electronically signed by Carlos Huitron MD in OV> 08/14/24 1748 DD/ 1516 TD/TT: 08/14/24 1617 Infectious Disease Physician: [address] [address] [address] Scan Report Signed Patient: Sandra Sifuentes MR#: [id number] 93 : 1960 Acct:[id number] Age/Sex: 64 / F ADM Date: 08/14/24 Loc: HO.ED Attending Dr: Ordering Physician: Riley Cummings Date of Service: 08/14/24 Procedure(s): CT head/brain wo IV con Accession Number(s): [id number] cc: Riley Cummings; Ilir Hodge MD EXAMINATION: [...] con IMPRESSION: No CT evidence of ac cristian intracranial hemorrhage or edematous territorial infarction.. Electronically raad d by: Carlos Huitron MD 08/14/2024 05:48 PM [facility] Dictated By: Carlos Huitron MD Signed By: <Electronically signed by Carlos Huitron MD in OV> 08/14/24 1748 DD/ 1516 TD/TT: 08/14/24 1617 Infectious Disease Physician: HEATH Troponin-I High Sensitivity Reviewed date:08/14/2024 04:57:01 PM Interpretation: Performing Lab:[facility], [address] [place] [phone] Notes/Report: Troponin-I High Sensitivity 8.8 <3.5-17.0 ng/L The Romo high sensitivity Troponin-I results should be used in conjunction with other diagnostic information such as ECG, clinical observations and information, and patient symptoms to aid in the diagnosis of AK. Glucose, Whole Blood Reviewed date:09/11/2024 12:40:04 PM Interpretation: Performing Lab:[facility], [address] [place] [phone] Notes/Report: Glucose, Whole Blood 139 60-115 mg/dL METER #: [id number] Testing performed in the Endocrinology Department and [facility], [address] [place] [address] [place] [address]. MM tomosynthesis screening B I Reviewed date:09/28/2024 04:55:24 PM Interpretation: Performing Lab: Notes/Report: [address] [place] [address] Mammography Report Signed Patient: Radha Sifuentes MR#: [id number] 93 : 1960 Acct:[id number] Age/Sex: 64 / F ADM Date: 09/20/24 Loc: HO.MAMMO Attending Dr: Ilir Hodge MD Ordering Physician: Ilir Hodge MD Results: 2Be nign Findings Date of Service: 09/20/24 Follow Up: 1 Year From [facility] ina Mammogram Procedure(s): MM tomosynthesis screening BI Accession Number(s): [id number] cc: Ilir Hodge MD EXAMINATION: MM SCREENING [...] by: Kateryna Quevedo DO 09/28/2024 02:51 PM [facility] Dictated By: Kateryna Quevedo DO Signed By: <Electronically signed by Kateryna Quevedo DO in OV> 09/28/24 1451 DD/ 1045 TD/TT: 09/20/24 1108 Infectious Disease Physician: [facility]'s [address] [place] [address] Mammography Report Signed Patient: Sandra Sifuentes MR#: [id number] 93 : 1960 Acct:[id number] Age/Sex: 64 / F ADM Date: 09/20/24 Loc: HO.MAMMO Attending Dr: Ilir Hodge MD Ordering Physician: Ilir Hodge MD Results: 2Be nign Findings Date of Service: 09/20/24 Follow Up: 1 Year From Orig ina Mammogram Procedure(s): MM tomosynthesis screening BI Accession Number(s): [id number] cc: Ilir Hodge MD EXAMINATION: MM SCREENING [...] by: Kateryna Quevedo DO 09/28/2024 02:51 PM [facility] Dictated By: Kateryna Quevedo DO Signed By: <Electronically signed by Kateryna Quevedo DO in OV> 09/28/24 1451 DD/ 1045 TD/TT: 09/20/24 1108 Infectious Disease Physician: RANDELL chest 2V Reviewed date:11/06/2024 05:58:04 PM Interpretation: Performing Lab: Notes/Report: [address] [place] [address] XRay Report Signed Patient: Radha Sifuentes MR#: [id number] 93 : 1960 Acct:[id number] Age/Sex: 64 / F ADM Date: 11/06/24 Loc: MERON Attending Dr: Ilir Hodge MD Ordering Physician: Ilir Hodge MD Date of Service: 11/06/24 Procedure(s): XR chest 2V Accession Number(s): [id number] cc: Ilir Hodge MD EXAMINATION: XR CHEST [...] Parra MD in OV> 11/06/24 1557 DD/ 9 TD/TT: 11/06/24937 Infectious Disease Physician: [address] [address] XRay Report Signed Patient: Sandra Sifuentes MR#: [id number] 93 : 1960 Acct:[id number] Age/Sex: 64 / F ADM Date: 11/06/24 Loc: MERON Attending Dr: Ilir Hodge MD Ordering Physician: Ilir Hodge MD Date of Service: 11/06/24 Procedure(s): XR marjan st 2V Accession Number(s): [id number] cc: Ilir Hodge MD EXAMINATION: XR CHES [...] Parra MD in OV> 11/06/24 1557 DD/ 9 TD/TT: 11/06/24 09 Infectious Disease Physician: Glucose, Whole Blood Reviewed date:11/16/2024 12:16:53 PM Interpretation: Performing Lab:[facility], [address] [place] [phone] Notes/Report: Glucose, Whole Blood 53 60-115 mg/dL METER #: [id number] Testing performed in the [facility] , [place] [address], [place]. Glucose, Whole Blood Reviewed date:11/16/2024 12:16:39 PM Interpretation: Performing Lab:[facility], [address] [place] [phone] Notes/Report: Glucose, Whole Blood 93 60-115 mg/dL METER #: [id number] Testing performed in the [facility] , [place] [address], [place]. Glucose, Whole Blood Reviewed date:02/16/2025 12:07:13 PM Interpretation: Performing Lab:[facility], [address] [place] [phone] Notes/Report: Glucose, Whole Blood 175 60-115 mg/dL METER #: [id number] Testing performed in the [facility] [place] [address], [place]. Cyclic Citrullinated Peptide Reviewed date:02/27/2025 12:41:48 PM Interpretation: Performing Lab:[facility], [address] [place] [phone] Notes/Report: Cyclic Citrullinated Peptide <16 Reference Range Negative: <20 Weak Positive: 20-39 Moderate Positive: 40-59 Strong Positive: >59 THIS TEST WAS PERFORMED AT: [facility] [address] [place] [phone] KIERSTEN DIAZ MD VARUN Reflex Titer and Pattern Reviewed date:02/27/2025 12:42:08 PM Interpretation: Performing Lab:[address] [address] Notes/Report: Anti Nuclear Antibody Screen POSITIVE NEGATIVE VARUN IFA is a first line screen for detecting the presence of up to approximately 150 autoantibodies in various autoimmune diseases. A positive VARUN IFA result is suggestive of autoimmune disease and reflexes to titer and pattern. Further laboratory testing may be considered if clinically indicated. For additional information, please refer to http://education.[employer]/faq/ SSV430 (This link is being provided for informational/ educational purposes only.) Anti Nuclear Antibody Titer 1:160 Reference Range <1:40 Negative 1:40-1:80 Low Antibody Level >1:80 Elevated Antibody Level Anti Nuclear Antibody Pattern Mitotic, Intercellular Bridge Abnormal Flag: A Staining of the intercellular bridge that connects daughter cells by the end of cell division, but before cell separation. Pattern is rare in systemic sclerosis, Raynaud's phenomenon, and in some malignancies. AC-27: Intercellular Bridge International Consensus on VARUN Patterns (https://doi.org/10.1 515/obzz-6101-8096) THIS TEST WAS PERFORMED AT: [facility] [address] [place] [phone] KIERSTEN DIAZ MD VARUN Titer 2 TNP VARUN Pattern 2 TNP VARUN Titer 3 TNP VARUN Pattern 3 TNP Sjogren's Antibodies Reviewed date:02/28/2025 06:24:17 PM Interpretation: Performing Lab:[address] [address] Notes/Report: Antibody to SS-A Antigen <1.0 NEG <1.0 NEG AI Antibody to SS-B Antigen <1.0 NEG <1.0 NEG AI THIS TEST WAS PERFORMED AT: [facility] [address] [place] [phone] KIERSTEN DIAZ MD Scleroderma 70 Antibody Reviewed date:02/28/2025 06:22:56 PM Interpretation: Performing Lab:[address] [address] Notes/Report: Scleroderma 70 Antibody <1.0 NEG <1.0 NEG AI THIS TEST WAS PERFORMED AT: [facility] [address] [place] [phone] KIERSTEN DIAZ MD Anti DNA DS Antibody Reviewed date:02/28/2025 06:24:31 PM Interpretation: Performing Lab:[facility], [address] [place] [phone] Notes/Report: Anti DNA DS Antibody <1 IU/mL Interpretation < or = 4 Negative 5-9 Indeterminate > or = 10 Positive THIS TEST WAS PERFORMED AT: [facility] [address] [place] [phone] KIERSTEN DIAZ MD Rheumatoid Factor Reviewed date:02/20/2025 08:53:03 AM Interpretation: Performing Lab:[facility], [address] [place] [phone] Notes/Report: Rheumatoid Factor < 13.0 <15.0 IU/mL Hypersensitive Pneumonitis P rf Reviewed date:02/28/2025 06:24:39 PM Interpretation: Performing Lab:[facility], [address] [place] [phone] Notes/Report: Asperg fumigatus Precip Abs NEGATIVE NEGATIVE Micropoly faeni Abs NEGATIVE NEGATIVE Kilgore serum Abs NEGATIVE NEGATIVE Thermo candidus Abs NEGATIVE NEGATIVE Thermoa vulgaris #1 NEGATIVE NEGATIVE Saccharo pora viridis Abs NEGATIVE NEGATIVE This test was developed and its analytical performance characteristics have been determined by [employer]. It has not been cleared or approved by the FDA. This assay has been validated pursuant to the CLIA regulations and is used for clinical purposes. THIS TEST WAS PERFORMED AT: [facility] [address] [place] [address] ROLAN GAY MD,PHD,DAE US abdomen complete Reviewed date:02/27/2025 12:05:42 PM Interpretation: Performing Lab: Notes/Report: [facility] [address] [place] [address] Ultrasound Report Signed Patient: Radha Sifuentes MR#: [id number] 93 : 1960 Acct:[id number] Age/Sex: 64 / F ADM Date: 02/26/25 Loc: HO.HMGCX Attending Dr: Ilir Hodge MD Ordering Physician: Ilir Hodge MD Date of Service: 02/26/25 Procedure(s): US abdomen complete Accession Number(s): [id number] cc: Ilir Hodge MD CLINICAL HISTORY: ABD MASS US abdomen complete Comparison: None provided Findings: The visualized pancreas is normal. The aorta and inferior vena cava are normal caliber. The liver is increased in size and echotexture, measuring up to 19 cm There is no intrahepatic bile duct dilatation. The common duct is 2.5 mm in diameter. The gallbladder is normal. There is no sonographic Alfaro sign. The main portal vein is antegrade. The right kidney is 11.5 cm in length. The left kidney is 10.9 cm in length. Multiple benign cysts, the largest within the midpole measuring up to 3 cm The spleen is normal. No ascites. IMPRESSION: No acute findings. Mild hepatomegaly and hepatic steatosis. Benign left renal cyst. This document has been electronically signed by: Rell Pack MD on 02/27/2025 11:32:23 Dictated By: Rell Pack MD Signed By: <Electronically signed by Rell Pack MD in OV> 02/27/25 1133 DD/ 1132 TD/TT: 02/27/25 1132 Infectious Disease Physician: [facility] [address] [place] [address] [place] [address] Ultrasound Report Signed Patient: Sandra Sifuentes MR#: [id number] 93 : 1960 Acct:[id number] Age/Sex: 64 / F ADM Date: 02/26/25 Loc: HO.HMGCX Attending Dr: Ilir Hodge MD Ordering Physician: Ilir Hodge MD Date of Service: 02/26/25 Procedure(s): US abdomen complete Accession Number(s): [id number] cc: Ilir Hodge MD CLINICAL HISTORY: AB D MASS US abdomen complete Comparison: None provided Findings: The visualized pancr eas is normal. The aorta and inferi or vena cava are normal caliber. The liver is increas ed in size and echotexture, measuring up to 19 cm There is no intrahepatic bile duct dilatation. The common duct is 2 .5 mm in diameter. The gallbladder is normal. There is no sonographic Alfaro sign. The main portal vein is antegrade. The right kidney is 11.5 cm in length. The left kidney is 1 0.9 cm in length. Multiple benign cysts, the largest within the midpole measuring up to 3 cm The spleen is normal. No ascites. IMPRESSION: No acute findings. Mild hepatomegaly an d hepatic steatosis. Benign left renal cyst. This document has be en electronically signed by: Rell Pack MD on 02/27/2025 11:32:23 Dictated By: Rell Pack MD Signed By: <Electronically signed by Rell Pack MD in OV> 02/27/25 1133 DD/ 1132 TD/TT: 02/27/25 1132 Infectious Disease Physician: Reason For Referral Reason Hives of unknow orig in Diagnosis 1 Hives of unknown gregg gin (L50.9) Referral Organization Ilir Hodge MD Referring Provider First Name Ilir Referring Provider Last Name Ayesha Referring Provider Speciality Internal edicine Referred Provider COREY CHAND Referred Provider Specialty Allergy/Immu nology General Notes Penny Saenz 11:58:48 AM EST > info faxed to the [facility] office p [phone] f [phone] they will call patient with an apptLetty Annette 09/15/2024 02:42:20 PM > referral info mailed [...] 03:03:49 PM > appt is in the [place] office, patient is aware of appointment Referral Priority Routine Referral Appointment Date 12/13/2024 Medications Medication SIG (Take, Route, Frequency, Duration) Notes Start Date End Date Status Rosuvastatin Calcium 40 MG 1 tablet Orally Once a day Active Vitamin D3 50 MCG (2000 UT) 1 capsule Orally Once a day for 30 day(s) 01/01/2022 Not-Taking Sertraline HCl 100MG take 1 tablet by [facility] once daily for 90 days Orally Once a day Active Lisinopril-hydroCHLOROth iazide 20-12.5 MG take 2 tablet by mouth once daily for 90 days Orally Once a day Active Aspir-Low 81 MG 1 tablet Orally Once a day for 30 day(s) Active amLODIPine Besylate 10 MG 1 tablet Orally Once a day 10/24/2019 Active Clobetasol Propionate 0.05 % 1 application Externally Twice a day for 10 day(s) 03/10/2021 Active HumaLOG KwikPen 100 UNIT/ML 60 units Subcutaneous Active Vitamin D3 125 MCG (5000 UT) 1 tablet Orally Once a day 11/05/2017 Active Paxlovid (300/100) 20 x 150 MG & 10 x 100MG 2 tabs of nirm and 1 tab sukhjinder Orally twice for 5 days 05/15/2022 Not-Taking Symbicort 160-4.5 MCG/ACT 2 puffs Inhalation twice a day 11/13/2024 Active Ipratropium-Albuterol 0.5-2.5 (3) MG/3ML 3 mL as needed Inhalation every 6 hrs 12/28/2024 Active Montelukast Sodium 10 MG 1 tablet Orally Once a day 12/28/2024 Active predniSONE 5 MG 1 tablet with food o r milk Orally Once a day Active Valtrex 1 GM 1 tablet Orally 3 ti mes a day for 7 days 12/17/2020 Not-Taking Albuterol Sulfate HFA 108 (90 Base) MCG/ACT 2 puffs as needed Inhalation every 4 hrs Active Ibuprofen 800 MG 1 tablet with food o r milk as needed Orally Three times a day 09/01/2019 Not-Taking Immunizations Vaccine Route Administration Date Status Comme nts Fluarix Quadrivalent IM Intramuscular 05/28/2014 Administe red Flu Vaccine IM Intramuscular 05/24/2015 Administered PPSV23 (Pnemovax) IM Intramuscular 11/22/2015 Administered Fluarix Quadrivalent IM Intramuscular 05/22/2016 Administe red Fluarix Quadrivalent IM Intramuscular 05/10/2017 Administe red Fluarix Quadrivalent IM Intramuscular 05/10/2018 Administe red Prevnar 13 IM Intramuscular 11/22/2018 Administered Fluarix Quadrivalent IM Intramuscular 05/22/2019 Adminralph son Covid Vaccine Unknown 10/04/2020 Administered Moderna A t work Covid Vaccine Unknown 11/01/2020 Administered Moderna TDaP Unknown 12/05/2020 Administered wALJEZ'S PPSV23 (Pnemovax) IM Intramuscular 03/10/2021 Administered Fluarix Quadrivalent IM Intramuscular 06/10/2021 Adminralph son SARS-COV-2 Moderna Unknown 07/17/2021 Administered Flu Vaccine [...] Problem Status W/U Status Risk Notes Problem 754812644 Type 2 diabetes mellitus without complications (E11.9) Active confirmed Problem 58759793 Lymphocytosis (D72.820) Active confirm ed Problem 78358925 Depression (F32.9) Active confirmed Problem 57057006 Vitamin D defici ency (E55.9) Active confirmed Problem 788853488 Diverticulitis (K57.92) Active confir med Problem 738449786 Mild intermitten t asthma, uncomplicated (J45.20) Active confirmed Problem 055665499 Other specified menopausal and perimenopausal disorders (N95.8) Active confirmed Problem 144350686 Encounter for wv reening for other protozoal diseases and helminthiases (Z11.6) Active confirmed Problem 655237870 Asymptomatic men opausal state (Z78.0) Active confirmed Problem 26026577 Essential hypert ension (I10) Active confirmed Problem 35294226 Dysthymia (F34.1) Active confirmed Problem 09400722 Sciatica of righ t side (M54.31) Active confirmed Problem 753858188 Pure hypercholesterolemia (E78.00) Active confirmed Problem 405636717 Hypertensive cri sis (I16.9) Active confirmed Problem Computed tomography result abnormal (216130359) Abnormal CAT scan (R93.89) Active confirmed Problem 59903413 Kidney stone on left side (N20.0) Active confirmed Problem Abdominal mass (finding) (555222713) Abdominal mass of other site (R19.09) Active confirmed Problem 935587198 Screening mammog osiris for breast cancer (Z12.31) Active confirmed Problem Urticaria ([id number]) Hives of unknown origin (L50.9) Active confirmed Vital Signs Blood pressure diastolic 86 mm Hg 03/22/2025 Height 64 in 03/22/2025 Blood pressure systolic 132 mm Hg 03/22/2025 Weight 245 lbs 03/22/2025 BMI 42.05 kg/m2 03/22/2025 Encounters Encounter Location Date Provider Diagnosis Ilir Hodge MD [address] [place] [address] [id number] 07/06/2024 Ilir Hodge Pure hypercholestero lemia E78.00 and Type 2 diabetes mellitus without complications E11.9 Ilir Hodge MD [address] [facility] [address] [facility] [address] [place] [address] [id number] 01/08/2025 Ilir Hodge Blood tests for rout ine general physical examination Z00.00 ; Essential hypertension I10 ; Pure hypercholesterolemia E78.00 ; Type 2 diabetes mellitus without complications E11.9 and Vitamin D deficiency E55.9 Ilir Hodge MD [address] [place] [address] [id number] 07/14/2024 Ilir Hodge Type 2 diabetes piter itus without complications E11.9 ; Cardiac murmur R01.1 and Pure hypercholesterolemia E78.00 Ilir Hodge MD [address] [facility] [address] [place] [address] [id number] 08/14/2024 Ilir Hodge Type 2 diabetes piter itus without complications E11.9 ; Hypertensive crisis I16.9 and Hives of unknown origin L50.9 Ilir Hodge MD [address] [facility] [address] [place] [address] [id number] 08/25/2024 Ilir Hodge Type 2 diabetes piter itus without complications E11.9 ; Hives of unknown origin L50.9 and Essential hypertension I10 Ilir Hodge MD [address] [place] [address] [id number] 09/07/2024 Ilir Hodge Type 2 diabetes piter itus without complications E11.9 and Hives of unknown origin L50.9 Ilir Hodge MD [address] [place] [address] [id number] 11/06/2024 Ilir Hodge Type 2 diabetes piter itus without complications E11.9 and Mild intermittent asthma, uncomplicated J45.20 Ilir Hodge MD [address] [place] [address] [id number] 11/13/2024 Ilir Hodge Bronchitis J40 Ilir Hodge MD [address] [place] [address] [id number] 11/27/2024 Ilir Hodge Persistent cough for 3 weeks or longer R05.3 ; Type 2 diabetes mellitus without complications E11.9 and Essential hypertension I10 Ilir Hodge MD [address] [place] [address] [id number] 12/28/2024 Ilir Hodge Type 2 diabetes piter itus without complications E11.9 and Mild intermittent asthma, uncomplicated J45.20 Ilir Hodge MD [address] [place] [address] [id number] 01/15/2025 Ilir Hodge Annual physical exam Z00.00 ; Abdominal mass of other site R19.09 ; Mild intermittent asthma, uncomplicated J45.20 ; Hives of unknown origin L50.9 ; Essential hypertension I10 ; Depression F32.9 ; Type 2 diabetes mellitus without complications E11.9 and Depression screening Z13.31 Ilir Hodge MD [address] [place] [address] [id number] 02/19/2025 Ilir Hodge Hives of unknown gregg gin L50.9 ; Essential hypertension I10 ; Type 2 diabetes mellitus without complications E11.9 and Persistent cough R05.3 Ilir Hodge MD [address] [place] [address] [id number] 03/22/2025 Ilir Hodge Abnormal CAT scan R9 3.89 and Cough R05.9 Ilir Hodge MD [address] [place] [address] [id number] 03/05/2025 Ilir Hodge Assessments Encounter Date Diagnosis (ICD Code) Assessment Notes Treatment Notes Treatment Clinical Notes Section Notes 07/06/2024 Pure hypercholesterolemia (ICD-10 - E78.00) 07/06/2024 Type 2 diabetes mellitus without complications (ICD-10 - E11.9) 01/08/2025 Blood tests for routine general physical examination (ICD-10 - Z00.00) 07/14/2024 [...] origin (ICD-10 - L50.9) referral to allergy 09/07/2024 Type 2 diabetes mellitus without complications (ICD-10 - E11.9) stable, will continue current regiment 09/07/2024 Hives of unknown origin (ICD-10 - L50.9) is going to see city alderman in one month. 11/06/2024 Type 2 diabetes [...] diabetes mellitus without complications (ICD-10 - E11.9) 01/15/2025 Annual physical exam (ICD-10 - Z00.00) labs reviewed and discussed with patient 01/15/2025 Abdominal mass of other site (ICD-10 - R19.09) pending diagnostic testing, THE ORDER WAS FAXED TO [facility], 02/19/2025 Hives of unknown origin (ICD-10 - L50.9) have done well on prednisone 02/19/2025 Essential hypertensi on (ICD-10 - I10) was coughing, will continue current regiment 03/22/2025 Abnormal CAT scan (ICD-10 - R93.89) [...] on high dose steroids twice in past. 01/08/2025 Essential hypertensi on (ICD-10 - I10) 07/14/2024 Pure hypercholesterolemia (ICD-10 - E78.00) stable, will contiue current regiment 08/14/2024 Hives of unknown origin (ICD-10 - [...] Mild intermittent asthma, uncomplicated (ICD-10 - J45.20) 01/15/2025 Mild intermittent asthma, uncomplicated (ICD-10 - J45.20) followed by pulmonary 02/19/2025 Type 2 diabetes mellitus without complications (ICD-10 - E11.9) has been doing well with pump, will continue current regiment 01/08/2025 Pure hypercholesterolemia (ICD-10 - E78.00) 11/27/2024 Essential hypertensi on (ICD-10 - I10) running a little high today, will contiue curent regiment and will contiue to monitor 01/15/2025 Hives of unknown origin (ICD-10 - L50.9) waiting for allergy consultt 02/19/2025 Persistent cough (ICD-10 - R05.3) have suggested going to [facility] 01/08/2025 Type 2 diabetes mellitus without complications (ICD-10 - E11.9) 01/15/2025 Essential hypertensi on (ICD-10 - I10) stable, will continue current regiment 01/08/2025 Vitamin D deficiency (ICD-10 - E55.9) 01/15/2025 Depression (ICD-10 - F32.9) stable, will continue current regiment 01/15/2025 Type 2 diabetes mellitus without complications (ICD-10 - E11.9) stable, will continue current regiment 01/15/2025 Depression screening (ICD-10 - Z13.31) negative screen 12/28/2024 Other feels that the cef made her better and it came back after stopping 02/19/2025 Other need to speak to dr reeves at [facility] about her chest ct/ Will call [facility] for request 03/22/2025 Other Total time spent on the date [...] steroids twice in past. Plan Of Treatment Pending Test Test Name Order Date Electrocardiogram (EKG) 09/17/2016 Electrocardiogram (EKG) 11/05/2017 Electrocardiogram (EKG) 10/09/2019 CT ABD & PELVIS NO CONTRAST 11/17/2022 XR CHEST 2 VIEW PA & LAT 11/06/2024 BONE DENSITY DEXA 09/09/2020 BONE DENSITY DEXA 12/09/2020 MAMMOGRAM DIGITAL BILATERAL SCREEN 09/09 US ABD 01/15/2025 ECHO 10/09/2019 CT chest wo/w con 03/22/2025 CT chest wo con 11/27/2024 MM screening mammo BI 01/05/2023 XR DEXA axial skeleton 01/05/2023 Next Appt Details Provider Name:Ilir Forrester ier, 05/14/2025 09:00:00 AM, [address] [facility], [address], [place], [place], [phone], Provider Name:Ilir Forrester ier, 07/19/2025 07:15:00 AM, [address] [place] [address], [address], [place], [place], [phone], Provider Name:Ilir Forrester ier, 01/11/2026 07:15:00 AM, [address] [place] [address], Suite [facility], [place], [place], [phone], Provider Name:Ilir Forrester ier, 01/18/2026 09:30:00 AM, [address] [place] [address], [address], [place], [place], [phone], Insurance Providers Payer Name Payer Address Payer Phone Subscriber Number Group Number Insured Name Patient Relationship to Insured Coverage Start Date Coverage End Date [facility] [employer] [address] [address] [place] [address] [id number] RADHA SIFUENTES Self - patient is the insured MEDICARE [employer] [address] [place] [id number] RADHA SIFUENTES Self - patient is the insured Medical (General) History Medical History History ICD Code colonoscopy 2010 due in 5 ye ars; colonoscopy 04/13/[address] Georgina Pihlippe in 2027
== END 2025-05-08 16:00 | disposition home or self-care (01) ==
LOC: HO.HPSW 15:14
PROVIDERS: PCP Internal Medicine; Visit Provider Nurse Practitioner Family
DX: J84.9 Interstitial pulmonary disease, unspecified (principal); J45.909 Unspecified asthma, uncomplicated; R05.3 Chronic cough; L50.1 Idiopathic urticaria
CPT/HCPCS: 99214

== ENCOUNTER → 2025-05-08 15:13 | Outpatient (BNVA) | payer MEDICARE, SELFPAY | PROVIDERS: PCP Internal Medicine; Visit Provider Nurse Practitioner Family | DX: J84.9 Interstitial pulmonary disease, unspecified (principal); J45.909 Unspecified asthma, uncomplicated; R05.3 Chronic cough; L50.1 Idiopathic urticaria; I10 Essential (primary) hypertension; E78.5 Hyperlipidemia, unspecified | CPT/HCPCS: 99212 ==

== ENCOUNTER 2025-05-21 07:42 | Outpatient (AMB) | payer MEDICARE, SELFPAY ==
--- OUTSIDE RECORDS SUMMARY | 2025-01-15 05:30 | XMS_ITS ---
Author Organization Ilir Hodge MD Address [address] [place] [phone] Care Team Providers Care Sport Shoe Spike Assembler Name Role Phone Ilir Hodge Primary Care Provider [phone] Allergies Allergen (clinical drug ingredient) Drug/Non Drug [...] HCl 100MG take 1 tablet by [facility] once daily for 90 days Orally [...] Status W/U Status Risk Notes Problem Urticaria (224564681) Hives of unknown origin (L50.9) Active confirmed Problem Abdominal mass (finding) (172960414) Abdominal mass of other site (R19.09) Active confirmed Vital Signs Blood pressure systolic 178 mm Hg 01/16/20 25 Blood pressure diastolic 80 mm Hg 025 Height 64 in 01/15/2025 Weight 236 lbs 01/15/2025 BMI 40.5 kg/m2 01/15/2025 Encounters Encounter Location Date Provider Diagnosis Ilir Hodge MD [address] [place] [address] [address] [place], [place] [phone] 01/15/2025 Ilir Hodge Annual physical exam Z00.00 [...] diagnostic testing, THE ORDER WAS FAXED TO [facility], 01/15/2025 Mild intermittent asthma, uncomplicated [...] HCl 100MG take 1 tablet by [facility] once daily for 90 days Orally Once a day Albuterol Sulfate HFA 108 (9 0 Base) MCG/ACT 2 puffs as needed Inhalation every 4 hrs Treatment Notes Assessment Notes Annual physical exam labs reviewed and d iscussed with patient Abdominal mass of other site pending josé antonio gnostic testing, THE ORDER WAS FAXED TO [facility], Mild intermittent asthma, uncomplicated followed by pulmonary Hives of unknown origin waiting for mustapha rgy consultt Essential hypertension stable, will cont inue current regiment Depression stable, will continu e current regiment Type 2 diabetes mellitus wit hout complications stable, will continue current regiment Depression screening negative screen Pending Test Test Name Order Date [facility] 01/15/2025 Next Appt Details Follow Up: 4 Weeks, Reason: Provider Name:Ilir alford, 06/14/2025 07:30:00 AM, [address] [place] [address], [address], [phone], Provider Name:Ilir alford, 07/19/2025 07:15:00 AM, [address] [place] [address], [place] [address], [place], [place], [phone], Provider Name:Ilir alford, 01/11/2026 07:15:00 AM, [address] [place] [address], [place] [address], [place], [place], [phone], Provider Name:Ilir alford, 01/18/2026 09:30:00 AM, [address], [address], [place], [phone], Progress Notes * SAVANNAH SIFUENTES EDOB: (64 yo F)Acc No.[id number]:01/15/2025 Progress Notes Patient: SAVANNAH BRAR Provider: Lizbeth Hodge MD :1960 A ge:64 Y S ex:Female Date:01/15/2025 Address:[address] [place] [address] [address] [id number] Subjective: * Chief Complaints: * A NNUAL [...] full-time. Pets: none. Travel outside of the [place]: no. * Medications: T akingpredniSONE 10 [...] mg/dL Urine Blood Negative Negative - Specific [place] - Urine 1.025 1.005-1.025 - Urine Protein [...] Cholesterol 56 >40 - mg/dL L ab:Comprehensive [place]. Panel Fast (Order Date - 01/08/2025) (Collection [...] upper quadrant. RECTAL EXAM: d one by verification engineer. FEMALE GENITOURINARY: d one by verification engineer. EXTREMITIES: n o clubbing, cyanosis, or edema. [...] diagnostic testing, THE ORDER WAS FAXED TO [facility], ?? 3.?Mild intermittent asthma, uncomplicated? [...] 01/15/2025 Generated for Valentin medina/Alexia/Majorsmitting on: 0 05/21/2025 07:45 AM EDT History and Physical Notes * [...] mass, no lump RECTAL EXAM: done by verification engineer FEMALE GENITOURINARY: done by verification engineer ORAL CAVITY: mucosa moist
--- OUTSIDE RECORDS SUMMARY | 2025-02-19 05:15 | XMS_ITS ---
Author Organization Ilir Hodge MD Address [address] [place] [phone] Care Team Providers Care Seed Sorter Name Role Phone Ilir Hodge Primary Care [...] Sertraline HCl 100MG take 1 tablet by oh ut once daily for 90 days Orally [...] Location Date Provider Diagnosis Ilir Hodge MD [address] [place] [address] [place] [phone] 02/19/2025 Ilir Hodge Hives of unknown origin [...] (ICD-10 - R05.3) have suggested going to [place] 02/19/2025 Other need to speak to dr [...] regiment Persistent cough have suggested going to [place] Other need to speak to dr reeves at [facility] about her chest ct/ Will call [facility] for request Next Appt Details Follow Up: 4 Weeks, Reason: Provider Name:Ilir alford, 06/14/2025 07:30:00 AM, [address] [place] [address], [address] [place] [address], [phone], Provider Name:Ilir alford, 07/19/2025 07:15:00 AM, [address] [place] [address], [address] [place] [address], [phone], Provider Name:Ilir alford, 01/11/2026 07:15:00 AM, [address] [place] [address], [address] [place] [address], [phone], Provider Name:Ilir Forrester ier, 01/18/2026 09:30:00 AM, [address], [address], [place], [place], [phone], Progress Notes * SAVANNAH SIFUENTES EDOB: (64 yo F)Acc No.[id number]:02/19/2025 Progress Notes Patient: SAVANNAH BRAR Provider: Lizbeth Hodge MD :1960 A ge:64 Y S ex:Female Date:02/19/2025 Address:[address] [place] [address] Subjective: * Chief Complaints: * 4 WK [...] ersistent cough Notes: have suggested going to [place] 5. O thers Notes: need to speak to dr reeves at [facility] about her chest ct/ Will call [facility] for request ? * Procedure Codes: * Follow Up: 4 Weeks * * Sign off status: Completed true * Provider: Lizbeth Hodge MD Date: 0 02/19/2025 Generated for Valentin medina/Alexia/Amberitting on: 0 05/21/2025 07:44 AM EDT History and Physical Notes * [...]
--- OUTSIDE RECORDS SUMMARY | 2025-03-05 07:24 | XMS_ITS ---
Author Organization Ilir Hodge MD Address [address] [place] [phone] Care Team Providers Care Biological Sciences Professor Name Role Phone Ilir Hodge Primary Care Provider [phone] Encounters Encounter Location Date Provider Diagnosis Ilir Hodge MD [address] [place] [phone] 03/05/2025 Ilir Hodge Plan Of Treatment Next Appt Details Provider Name:Ilir alford, 06/14/2025 07:30:00 AM, [address], [address], [place], [place], [phone], Provider Name:Ilir alford, 07/19/2025 07:15:00 AM, [address], [address], [place], [place], [phone], Provider Name:Ilir Forrester ier, 01/11/2026 07:15:00 AM, [address], [address], [place], [phone], Provider Name:Ilir Forrester ier, 01/18/2026 09:30:00 AM, [address] [place] [address], [address], [place], [phone], Progress Notes * SAVANNAH SIFUENTES EDOB: (64 yo F)Acc No.[id number]:03/05/2025 Patient: Janine FLORESITAANNETTE SAVANNAH Watson :1960 A ge:64 Y S ex:Female Address:[address] [place] [address] ERNESTINE Hilario, [address] * true * Date: Generated for Valentin medina/Alexia/eTransmitting on: 0 05/21/2025 07:45 AM EDT
--- OUTSIDE RECORDS SUMMARY | 2025-03-22 07:30 | XMS_ITS ---
Author Organization Ilir Hodge MD Address [address] [place] [phone] Care Team Providers Care Rubber Press Operator Name Role Phone Ilir Hodge Primary Care Provider [phone] Allergies Allergen (clinical drug ingredient) Drug/Non Drug [...] Risk Notes Problem Computed tomography result abnormal (375821569) Abnormal CAT scan (R93.89) Active confirmed Vital Signs Blood pressure systolic 132 mm Hg 03/22/20 25 Blood pressure diastolic 86 mm Hg 025 Height 64 in 03/22/2025 Weight 245 lbs 03/22/2025 BMI 42.05 kg/m2 03/22/2025 Encounters Encounter Location Date Provider Diagnosis Ilir Hodge MD [address] [place] [address] [place] [id number] 03/22/2025 Ilir Hodge Abnormal CAT scan R93.89 [...] Up: 2 Months, Reason: Provider Name:Ilir alford, 06/14/2025 07:30:00 AM, [address] [place] [address], [address], [place], [place], [phone], Provider Name:Ilir alford, 07/19/2025 07:15:00 AM, [address] [place] [address], [address], [place], [phone], Provider Name:Ilir alford, 01/11/2026 07:15:00 AM, [address] [place] [address], [address], [place], [place], [phone], Provider Name:Ilir alford, 01/18/2026 09:30:00 AM, [address] [facility], [address], [place], [place], [phone], Progress Notes * SAVANNAH SIFUENTES EDOB: [birth year] (64 yo F)Acc No.[id number]:03/22/2025 Progress Notes Patient: SAVANNAH BRAR Provider: Lizbeth Hodge MD :1960 A ge:64 Y S ex:Female Date:03/22/2025 Address:[address] [place], [place] [id number] Subjective: * Chief Complaints: * 4 week * HPI: S ymptom(s): patient is a 64 yo female here for 4 weel follow up visit/ still coughing. going to see administrative supervisor. * ROS: G eneral/Constitutional: Denies C hills. [...] 0 03/22/2025 Generated for Valentin medina/Alexia/Amberitting on: 0 05/21/2025 07:44 AM EDT History and Physical Notes * HPI (History of Present Illness) Category Sub-Category Detail Notes Category Not es Symptom(s) patient is a 64 yo female here for 4 weel follow up visit/ still coughing. going to see administrative supervisor Examination Category Sub-Category Detail Notes Category Not es General Examination GENERAL APPEARANCE: alert, w ell hydrated, in no distress HEART: regular rate and rhy thm, no murmurs, rubs, gallops LUNGS: clear to auscultatio n bilaterally, good air movement, no wheezes, rales, rhonchi SKIN: good turgor
--- OUTSIDE RECORDS SUMMARY | 2025-05-14 05:00 | XMS_ITS ---
Author Organization Ilir Hodge MD Address [address] [place] [phone] Care Team Providers Care Cable Armorer Operator Name Role Phone Ilir Hodge Primary Care Provider [phone] Allergies Allergen (clinical drug ingredient) Drug/Non Drug [...] Location Date Provider Diagnosis Ilir Hodge MD [address] [place] [address] [place] [phone] 05/14/2025 Ilir Hodge Type 2 diabetes mellitus [...] Reason: Provider Name:Ilir alford, 06/14/2025 07:30:00 AM, [address] [place] [address], [address], [phone], Provider Name:Ilir alford, 07/19/2025 07:15:00 AM, [address] [place] [address], [address], [phone], Provider Name:Ilir alford, 01/11/2026 07:15:00 AM, [address] [place] [address], [address], [phone], Provider Name:Ilir alford, 01/18/2026 09:30:00 AM, [address] [place] [address], [address], [phone], Progress Notes * SAVANNAH SIFUENTES EDOB: 9 (64 yo F)Acc No.[id number]:05/14/2025 Progress Notes Patient: SAVANNAH BRAR Provider: Lizbeth Hodge MD :1960 A ge:64 Y S ex:Female Date:05/14/2025 Address:[address] [place] [address] [place] Subjective: * Chief Complaints: * 2 monthPatient hs MAURICE BS is 163 and A1C is 7.2 * HPI: S ymptom(s): patient is a 64 yo female here for 2 month follow up visit. * ROS: G eneral/Constitutional: Denies C hills. [...] MD Date: 0 05/14/2025 Generated for Valentin medina/Alexia/Majorsmitting on: 0 05/21/2025 [...]
--- OUTSIDE RECORDS SUMMARY | 2025-05-21 07:46 | XMS_ITS | Patient Health Record ---
Author Organization Ilir Hodge MD Address [address] [place], [place] [id number] Care Team Providers Care Paper Deliverer Name Role Phone Ilir Hodge Primary Care [...] Panel Reviewed date:07/06/2024 04:44:07 PM Interpretation: Performing Lab:[facility], [address] [place] [phone] Notes/Report: Bilirubin Total 1.0 0.0-1.0 mg/dL Bilirubin Direct 0.3 0.0-0.5 mg/dL Aspartate Amino Transferase 34 5-31 U/L Alanine Aminotransferase 23 0-31 U/L Total Protein 7.1 6.5-8.0 g/dL Albumin Level 4.0 3.5-5.0 g/dL Alkaline Phosphatase 80 39-117 U/L Glucose Fasting Reviewed date:07/06/2024 04:39:33 PM Interpretation: Performing Lab:[facility], [address] [place] [phone] Notes/Report: Glucose Fasting 103 60-99 mg/dL A fasting glucose from 100-125 mg/dl is considered impaired (pre-diabetes). Lipid Panel with Reflex Reviewed date:07/06/2024 04:43:47 PM Interpretation: Performing Lab:[facility], [address] [place] [phone] Notes/Report: Triglycerides 105 <150 mg/dL Desirable Triglyceride: [...] A1c Reviewed date:07/06/2024 12:27:15 PM Interpretation: Performing Lab:[facility], [address] [place] [phone] Notes/Report: Hemoglobin A1c % 6.7 <6.0 % [...] average glucose, using the formula of the L4M-Gapovac Average Glucose study (ADAG), Diabetes Care, Vol.31,#8, Mar. 2007 Complete Blood Count Auto Di ff Reviewed date:01/08/2025 12:36:23 PM Interpretation: Performing Lab:[facility], [address] [place] [phone] Notes/Report: White Blood Count 6.5 4.8-10.8 X10*3/uL [...] NRBC Abs Auto 0.000 0.0-0.012 X10*3/uL Comprehensive [place]. Panel Fa st Reviewed date:01/10/2025 07:02:22 PM Interpretation: Performing Lab:[facility], [address] [place] [phone] Notes/Report: Sodium 144 135-145 mmol/L Potassium 4.7 [...] Panel Reviewed date:01/08/2025 05:12:45 PM Interpretation: Performing Lab:[facility], [address] [place] [phone] Notes/Report: Triglycerides 96 <150 mg/dL Desirable Triglyceride: [...] Total Reviewed date:01/08/2025 05:13:08 PM Interpretation: Performing Lab:[address] [phone] Notes/Report: Vitamin D 25-OH Total 20.3 >30 [...] Random Reviewed date:01/08/2025 12:34:10 PM Interpretation: Performing Lab:[facility], [address] [place] [phone] Notes/Report: Creatinine Urine 177.53 Microalbumin Urine 293.0 Microalbum/Creatinine Ratio Ur 165.0 <30 ug/mg cr Albumin/Creatinine Ratio Reference Ranges: Normal: < 30 ug/mg creatinine Microalbuminuria: 30 - 300 ug/mg creatinine Clinical Albuminuria: > 300 ug/mg creatinine Hemoglobin A1c Reviewed date:01/08/2025 03:03:50 PM Interpretation: Performing Lab:[facility], [address] [place] [phone] Notes/Report: Hemoglobin A1c % 7.0 <6.0 % [...] average glucose, using the formula of the O7L-Qvoylpe Average Glucose study (ADAG), Diabetes Care, Vol.31,#8, Mar. 2007 UA ClnCatch+Micro w/rflx Cul t Reviewed date:01/08/2025 12:35:06 PM Interpretation: Performing Lab:[facility], [address] [place] [phone] Notes/Report: Urine, Clean Catch Color Urine Yellow Appearance Urine Hazy PH 6.0 5.0-9.0 Glucose Urine UA Negative Negative mg/dL Urine Blood Negative Negative Specific [facility] - Urine 1.025 1.005-1.025 Urine Protein 30 [...] Blood Reviewed date:06/14/2024 02:17:33 PM Interpretation: Performing Lab:[facility], [address] [place] [phone] Notes/Report: Glucose, Whole Blood 139 60-115 mg/dL METER #: [id number] Testing performed in the [facility], [facility]. Lipid Panel Reviewed date:07/03/2024 11:07:17 AM Interpretation: Performing Lab:[address] [phone] Notes/Report: Triglycerides 117 <150 mg/dL Desirable Triglyceride: [...] Thyroxine) Reviewed date:07/03/2024 11:15:23 AM Interpretation: Performing Lab:[facility], [address] [place] [phone] Notes/Report: Free T4 (Free Thyroxine) 1.14 0.71-1.85 ng/dL Thyroid Stimulating Hormone Reviewed date:07/03/2024 11:15:32 AM Interpretation: Performing Lab:[facility], [address] [place] [phone] Notes/Report: Thyroid Stimulating Hormone 1.60 0.32-4.0 uIU/mL TSH 3rd Generation ([facility]) Microalbumin, Random Reviewed date:07/03/2024 11:15:50 AM Interpretation: Performing Lab:[facility], [address] [place] [phone] Notes/Report: Creatinine Urine 155.38 Microalbumin Urine 462.0 Microalbum/Creatinine Ratio Ur 297.3 <30 ug/mg cr Albumin/Creatinine Ratio Reference Ranges: Normal: < 30 ug/mg creatinine Microalbuminuria: 30 - 300 ug/mg creatinine Clinical Albuminuria: > 300 ug/mg creatinine Luis A Garza Reviewed date:07/06/2024 12:26:46 PM Interpretation: Performing Lab:[facility], [address] [place] [phone] Notes/Report: Luis A Garza See Note Specimen held untested for 24 hours; Call to request Chemistry testing. Complete Blood Count Auto Di ff Reviewed date:08/14/2024 02:07:47 PM Interpretation: Performing Lab:[facility], [address] [place] [phone] Notes/Report: White Blood Count 7.2 4.8-10.8 X10*3/uL [...] Panel Reviewed date:08/14/2024 02:07:32 PM Interpretation: Performing Lab:[facility], [address] [place] [phone] Notes/Report: Bilirubin Total 0.7 0.0-1.0 mg/dL Bilirubin Direct 0.2 0.0-0.5 mg/dL Aspartate Amino Transferase 27 5-31 U/L Alanine Aminotransferase 25 0-31 U/L Total Protein 7.1 6.5-8.0 g/dL Albumin Level 4.0 3.5-5.0 g/dL Alkaline Phosphatase 110 39-117 U/L Basic Metabolic Panel Reviewed date:08/14/2024 02:07:16 PM Interpretation: Performing Lab:[facility], [address] [place] [phone] Notes/Report: Sodium 142 135-145 mmol/L Potassium 4.3 [...] Sensitivity Reviewed date:08/14/2024 02:07:24 PM Interpretation: Performing Lab:[facility], [address] [place] [phone] Notes/Report: Troponin-I High Sensitivity 6.1 <3.5-17.0 ng/L The Romo high sensitivity Troponin-I results should be used in conjunction with other diagnostic information such as ECG, clinical observations and information, and patient symptoms to aid in the diagnosis of CO. CT head/brain wo con Reviewed date:08/15/2024 12:24:33 PM Interpretation: Performing Lab: Notes/Report: [address] [address] [place] Scan Report Signed Patient: Radha Sifuentes MR#: [id number] 93 : 1960 Acct:[id number] Age/Sex: 64 / F ADM Date: 08/14/24 Loc: HO.ED Attending Dr: Ordering Physician: Riley Cummings Date of Service: 08/14/24 Procedure(s): CT head/brain wo IV con Accession Number(s): [id number] cc: Riley Cummings; Ilir Hodge MD EXAMINATION: [...] by: Carlos Huitron MD 08/14/2024 05:48 PM [facility] Dictated By: Carlos Huitron MD Signed By: <Electronically signed by Carlos Huitron MD in OV> 08/14/24 1748 DD/ 1516 TD/TT: 08/14/24 1617 Spinning Frame Changer: [address] [address] [address] Scan Report Signed Patient: Sandra Sifuentes MR#: [id number] 93 : 1960 Acct:[id number] Age/Sex: 64 / F ADM Date: 08/14/24 Loc: HO.ED Attending Dr: Ordering Physician: Riley Cummings Date of Service: 08/14/24 Procedure(s): CT head/brain wo IV con Accession Number(s): [id number] cc: Riley Cummings; Ilir Hodge MD EXAMINATION: [...] con IMPRESSION: No CT evidence of ac grayling intracranial hemorrhage or edematous territorial infarction.. Electronically raad d by: Carlos Huitron MD 08/14/2024 05:48 PM [facility] Dictated By: Carlos Huitron MD Signed By: <Electronically signed by Carlos Huitron MD in OV> 08/14/24 1748 DD/ 1516 TD/TT: 08/14/24 1617 Spinning Frame Changer: HEATH Troponin-I High Sensitivity Reviewed date:08/14/2024 04:57:01 PM Interpretation: Performing Lab:[facility], [address] [place] [phone] Notes/Report: Troponin-I High Sensitivity 8.8 <3.5-17.0 ng/L The Romo high sensitivity Troponin-I results should be used in conjunction with other diagnostic information such as ECG, clinical observations and information, and patient symptoms to aid in the diagnosis of CO. Glucose, Whole Blood Reviewed date:09/11/2024 12:40:04 PM Interpretation: Performing Lab:[facility], [address] [place] [phone] Notes/Report: Glucose, Whole Blood 139 60-115 mg/dL METER #: [id number] Testing performed in the Endocrinology [facility] and [facility], [address] [place] [address] [place] [address]. MM tomosynthesis screening B I Reviewed date:09/28/2024 04:55:24 PM Interpretation: Performing Lab: Notes/Report: [address] [place] [address] Mammography Report Signed Patient: Radha Sifuentes MR#: [id number] 93 : 1960 Acct:[id number] Age/Sex: 64 / F ADM Date: 09/20/24 Loc: HO.MAMMO Attending Dr: Ilir Hodge MD Ordering Physician: Ilir Hodge MD Results: 2Be nign Findings Date of Service: 09/20/24 Follow Up: 1 Year From [facility] ina Mammogram Procedure(s): MM tomosynthesis screening BI Accession Number(s): [id number] cc: Ilir Hodge MD EXAMINATION: MM SCREENING [...] their next mammogram. Electronically signed by: Kateryna Queevdo DO 09/28/2024 02:51 PM [facility] Dictated By: Kateryna Quevedo DO Signed By: <Electronically signed by Kateryna Quevedo DO in OV> 09/28/24 1451 DD/ 1045 TD/TT: 09/20/24 1108 Spinning Frame Changer: [facility] [address] [place] [address] Mammography Report Signed Patient: Sandra Sifuentes MR#: [id number] 93 : 1960 Acct:[id number] Age/Sex: 64 / F ADM Date: 09/20/24 Loc: HO.MAMMO Attending Dr: Ilir Hodge MD Ordering Physician: Ilir Hodge MD Results: 2Be nign Findings Date of Service: 09/20/24 Follow Up: 1 Year From Orig ina Mammogram Procedure(s): MM tomosynthesis screening BI Accession Number(s): [id number] cc: Ilir Hodge MD EXAMINATION: MM SCREENING [...] by: Kateryna Quevedo DO 09/28/2024 02:51 PM [facility] Dictated By: Kateryna Quevedo DO Signed By: <Electronically signed by Kateryna Quevedo DO in OV> 09/28/24 1451 DD/ 1045 TD/TT: 09/20/24 1108 Spinning Frame Changer: RANDELL chest 2V Reviewed date:11/06/2024 05:58:04 PM Interpretation: Performing Lab: Notes/Report: [address] [place] [address] XRay Report Signed Patient: Radha Sifuentes MR#: [id number] 93 : 1960 Acct:[id number] Age/Sex: 64 / F ADM Date: 11/06/24 Loc: MERON Attending Dr: Ilir Hodge MD Ordering Physician: Ilir Hodge MD Date of Service: 11/06/24 Procedure(s): XR chest 2V Accession Number(s): [id number] cc: Ilir Hodge MD EXAMINATION: XR CHEST [...] OV> 11/06/24 1557 DD/ 9 TD/TT: 11/06/24937 Spinning Frame Changer: [address] [address] XRay Report Signed Patient: Sandra Sifuentes MR#: [id number] 93 : 1960 Acct:[id number] Age/Sex: 64 / F ADM Date: 11/06/24 Loc: MERON Attending Dr: Ilir Hogde MD Ordering Physician: Ilir Hodge MD Date of Service: 11/06/24 Procedure(s): XR marjan st 2V Accession Number(s): [id number] cc: Ilir Hodge MD EXAMINATION: XR CHES [...] 11/06/24 1557 DD/ 9 TD/TT: 11/06/24 09 Spinning Frame Changer: Glucose, Whole Blood Reviewed date:11/16/2024 12:16:53 PM Interpretation: Performing Lab:[facility], [address] [place] [phone] Notes/Report: Glucose, Whole Blood 53 60-115 mg/dL METER #: [id number] Testing performed in the [facility] , [place] [address], [place]. Glucose, Whole Blood Reviewed date:11/16/2024 12:16:39 PM Interpretation: Performing Lab:[facility], [address] [place] [phone] Notes/Report: Glucose, Whole Blood 93 60-115 mg/dL METER #: [id number] Testing performed in the [facility] , [place] [address], [place]. Glucose, Whole Blood Reviewed date:02/16/2025 12:07:13 PM Interpretation: Performing Lab:[facility], [address] [place] [phone] Notes/Report: Glucose, Whole Blood 175 60-115 mg/dL METER #: [id number] Testing performed in the [facility] [place] [address], [place]. Cyclic Citrullinated Peptide Reviewed date:02/27/2025 12:41:48 PM Interpretation: Performing Lab:[facility], [address] [place] [phone] Notes/Report: Cyclic Citrullinated Peptide <16 Reference Range Negative: <20 Weak Positive: 20-39 Moderate Positive: 40-59 Strong Positive: >59 THIS TEST WAS PERFORMED AT: [email or web address] [address] [place] [phone] KIERSTEN DIAZ MD VARUN Reflex Titer and Pattern Reviewed date:02/27/2025 12:42:08 PM Interpretation: Performing Lab:[address] [address] Notes/Report: Anti Nuclear Antibody Screen POSITIVE NEGATIVE VARUN IFA is a first line screen for detecting the presence of up to approximately 150 autoantibodies in various autoimmune diseases. A positive VARUN IFA result is suggestive of autoimmune disease and reflexes to titer and pattern. Further laboratory testing may be considered if clinically indicated. For additional information, please refer to http://education.Ischemia Care/faq/ ECQ305 (This link is being provided for informational/ [...] [employer] Consensus on VARUN Patterns (https://doi.org/10.1 515/jnou-1159-0572) THIS TEST WAS PERFORMED AT: [email or web address] [address] [place] [phone] KIERSTEN DIAZ MD VARUN Titer 2 TNP VARUN Pattern 2 TNP VARUN Titer 3 TNP VARUN Pattern 3 TNP Sjogren's Antibodies Reviewed date:02/28/2025 06:24:17 PM Interpretation: Performing Lab:[address] [address] Notes/Report: Antibody to SS-A Antigen <1.0 NEG <1.0 NEG AI Antibody to SS-B Antigen <1.0 NEG <1.0 NEG AI THIS TEST WAS PERFORMED AT: [email or web address] [address] [place] [phone] KIERSTEN DIAZ MD Scleroderma 70 Antibody Reviewed date:02/28/2025 06:22:56 PM Interpretation: Performing Lab:[address] [phone] Notes/Report: Scleroderma 70 Antibody <1.0 NEG <1.0 NEG AI THIS TEST WAS PERFORMED AT: [email or web address] [address] [place] [phone] KIERSTEN DIAZ MD Anti DNA DS Antibody Reviewed date:02/28/2025 06:24:31 PM Interpretation: Performing Lab:[facility], [address] [place] [phone] Notes/Report: Anti DNA DS Antibody <1 IU/mL Interpretation < or = 4 Negative 5-9 Indeterminate > or = 10 Positive THIS TEST WAS PERFORMED AT: [email or web address] [address] [place] [phone] KIERSTEN DIAZ MD Rheumatoid Factor Reviewed date:02/20/2025 08:53:03 AM Interpretation: Performing Lab:[facility], [address] [place] [phone] Notes/Report: Rheumatoid Factor < 13.0 <15.0 IU/mL Hypersensitive Pneumonitis P rf Reviewed date:02/28/2025 06:24:39 PM Interpretation: Performing Lab:[facility], [address] [place] [phone] Notes/Report: Asperg fumigatus Precip Abs NEGATIVE NEGATIVE Micropoly faeni Abs NEGATIVE NEGATIVE [place] serum Abs NEGATIVE NEGATIVE Thermo candidus Abs NEGATIVE NEGATIVE Thermoa vulgaris #1 NEGATIVE NEGATIVE Saccharo pora viridis Abs NEGATIVE NEGATIVE This test was developed and its analytical performance characteristics have been determined by [employer]. It has not been cleared or approved by the FDA. This assay has been validated pursuant to the CLIA regulations and is used for clinical purposes. THIS TEST WAS PERFORMED AT: [facility] [address] [place] [address] ROLAN GAY MD,PHD,DAE US abdomen complete Reviewed date:02/27/2025 12:05:42 PM Interpretation: Performing Lab: Notes/Report: [facility] [address] [place] [address] Ultrasound Report Signed Patient: Radha Sifuentes MR#: [id number] 93 : 1960 Acct:[id number] Age/Sex: 64 / F ADM Date: 02/26/25 Loc: HO.HMGCX Attending Dr: Ilir Hodge MD Ordering Physician: Ilir Hodge MD Date of Service: 02/26/25 Procedure(s): US abdomen complete Accession Number(s): [id number] cc: Ilir Hodge MD CLINICAL HISTORY: ABD [...] 02/27/25 1133 DD/ 1132 TD/TT: 02/27/25 1132 Spinning Frame Changer: [facility] [address] [place] [address] [place] [address] Ultrasound Report Signed Patient: Sandra Sifuentes MR#: [id number] 93 : 1960 Acct:[id number] Age/Sex: 64 / F ADM Date: 02/26/25 Loc: HO.HMGCX Attending Dr: Ilir Hodge MD Ordering Physician: Ilir Hodge MD Date of Service: 02/26/25 Procedure(s): US abdomen complete Accession Number(s): [id number] cc: Ilir Hodge MD CLINICAL HISTORY: AB [...] 02/27/25 1133 DD/ 1132 TD/TT: 02/27/25 1132 Spinning Frame Changer: Reason For Referral Reason Hives of unknow orig in Diagnosis 1 Hives of unknown gregg gin (L50.9) Referral Organization Ilir Hodge MD Referring Provider First Name Ilir Referring Provider Last Name Ayesha Referring Provider Speciality Internal edicine Referred Provider COREY CHAND Referred Provider Specialty Allergy/Immu nology General Notes Penny Saenz 11:58:48 AM EST > info faxed to the [facility] office p [phone] f [phone] they will call patient with an apptLetty [...] 03:03:49 PM > appt is in the [place] office, patient is aware of appointment Referral Priority Routine Referral Appointment Date 12/13/2024 Medications Medication SIG (Take, Route, Frequency, Duration) Notes Start Date End Date Status HumaLOG KwikPen 100 UNIT/ML 60 units Subcutaneous Active Symbicort 160-4.5 MCG/ACT 2 puffs Inhalation twice a day 11/13/2024 Active Albuterol Sulfate HFA 108 (90 Base) MCG/ACT 2 puffs as needed Inhalation every 4 hrs Active Ibuprofen 800 MG 1 tablet with food or milk as needed Orally Three times a day 09/01/2019 Not-Taking Montelukast Sodium 10 MG 1 tablet Orally Once a day 12/28/2024 Active Ipratropium-Albutero l 0.5-2.5 (3) MG/3ML 3 mL as needed Inhalation every 6 hrs 12/28/2024 Active Hydrocod Juan Carlos-Chlorphe Juan Carlos ER 10-8 MG/5ML 5 mL as needed Orally every 12 hrs for 20 days Partial Fill upon Patient Request 05/14/2025 Active predniSONE 20 MG 2 tabsQD x [...] Orally twice for 5 days 05/15/2022 Not-Taking Clobetasol Propionate 0.05 % 1 application Externally Twice a day for 10 day(s) 03/10/2021 Active Sertraline HCl 100MG take 1 tablet by mouth once daily for 90 days Orally Once a day Active Valtrex 1 GM 1 tablet Orally 3 times a day for 7 days 12/17/2020 Not-Taking Rosuvastatin Calcium 40 MG 1 tablet Orally [...] Problem Status W/U Status Risk Notes Problem 109302331 Type 2 diabetes mellitus without complications (E11.9) Active confirmed Problem 58717351 Lymphocytosis (D72.820) Active confirm ed Problem 91848823 Depression (F32.9) Active confirmed Problem 65800150 Vitamin D defici ency (E55.9) Active confirmed Problem 827985743 Diverticulitis (K57.92) Active confir med Problem 195464401 Mild intermitten t asthma, uncomplicated (J45.20) Active confirmed Problem 173746502 Other specified menopausal and perimenopausal disorders (N95.8) Active confirmed Problem 710453778 Encounter for mi reening for other protozoal diseases and helminthiases (Z11.6) Active confirmed Problem 632525849 Asymptomatic men opausal state (Z78.0) Active confirmed Problem 85599641 Essential hypert ension (I10) Active confirmed Problem 46250790 Dysthymia (F34.1) Active confirmed Problem 08495651 Sciatica of righ t side (M54.31) Active confirmed Problem 024936232 Pure hypercholesterolemia (E78.00) Active confirmed Problem 202475899 Hypertensive cri sis (I16.9) Active confirmed Problem Computed tomography result abnormal (305467300) Abnormal CAT scan (R93.89) Active confirmed Problem 23071289 Kidney stone on left side (N20.0) Active confirmed Problem Abdominal mass (finding) (686451977) Abdominal mass of other site (R19.09) Active confirmed Problem 289723486 Screening mammog osiris for breast cancer (Z12.31) Active confirmed Problem Urticaria (113879487) Hives of unknown origin (L50.9) Active confirmed Vital Signs Blood pressure diastolic 84 mm Hg 05/14/2025 Height 64 in 05/14/2025 Blood pressure systolic 152 mm Hg 05/14/2025 Weight 246 lbs 05/14/2025 BMI 42.22 kg/m2 05/14/2025 Encounters Encounter Location Date Provider Diagnosis Ilir Hodge MD [address] [place] [id number] 07/06/2024 Ilir Hodge Pure hypercholestero lemia E78.00 and Type 2 diabetes mellitus without complications E11.9 Ilir Hodge MD [address] [place] [id number] 01/08/2025 Ilir Hodge Blood tests for rout ine general physical examination Z00.00 ; Essential hypertension I10 ; Pure hypercholesterolemia E78.00 ; Type 2 diabetes mellitus without complications E11.9 and Vitamin D deficiency E55.9 Ilir Hodge MD [address] [place] [id number] 07/14/2024 Ilir Hodge Type 2 diabetes piter itus without complications E11.9 ; Cardiac murmur R01.1 and Pure hypercholesterolemia E78.00 Ilir Hodge MD [address] [place] [id number] 08/14/2024 Ilir Hodge Type 2 diabetes piter itus without complications E11.9 ; Hypertensive crisis I16.9 and Hives of unknown origin L50.9 Ilir Hodge MD [address] [place] [id number] 08/25/2024 Ilir Hodge Type 2 diabetes piter itus without complications E11.9 ; Hives of unknown origin L50.9 and Essential hypertension I10 Ilir Hodge MD [address] [place] [id number] 09/07/2024 Ilir Hodge Type 2 diabetes piter itus without complications E11.9 and Hives of unknown origin L50.9 Ilir Hodge MD [address] [place] [id number] 11/06/2024 Ilir Hodge Type 2 diabetes piter itus without complications E11.9 and Mild intermittent asthma, uncomplicated J45.20 Ilir Hodge MD [address] [place] [id number] 11/13/2024 Ilir Hodge Bronchitis J40 Ilir Hodge MD [address] [place] [id number] 11/27/2024 Ilir Hodge Persistent cough for 3 weeks or longer R05.3 ; Type 2 diabetes mellitus without complications E11.9 and Essential hypertension I10 Ilir Hodge MD [address] [place] [address] [id number] 12/28/2024 Ilir Hodge Type 2 diabetes piter itus without complications E11.9 and Mild intermittent asthma, uncomplicated J45.20 Ilir Hodge MD [address] [place] [address] [id number] 01/15/2025 Ilir Hodge Annual physical exam Z00.00 ; Abdominal mass of other site R19.09 ; Mild intermittent asthma, uncomplicated J45.20 ; Hives of unknown origin L50.9 ; Essential hypertension I10 ; Depression F32.9 ; Type 2 diabetes mellitus without complications E11.9 and Depression screening Z13.31 Ilir Hodge MD [address] [place] [address] [id number] 02/19/2025 Ilir Hodge Hives of unknown gregg gin L50.9 ; Essential hypertension I10 ; Type 2 diabetes mellitus without complications E11.9 and Persistent cough R05.3 Ilir Hdoge MD [address] [place] [id number] 03/22/2025 Ilir Hodge Abnormal CAT scan R9 3.89 and Cough R05.9 Ilir Hodge MD [address] [place], [place] [id number] 05/14/2025 Ilir Hodge Type 2 diabetes piter itus without complications E11.9 and Cough in adult R05.9 Ilir Hodge MD [address] [place], [place] [id number] 03/05/2025 Ilir Hodge Assessments Encounter Date Diagnosis [...] (ICD-10 - L50.9) is 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 11/06/2024 Type 2 diabetes [...] diagnostic testing, THE ORDER WAS FAXED TO [facility] [place] PATIENT REG, 02/19/2025 Hives of unknown origin [...] on high dose steroids twice in past. 05/14/2025 Type 2 diabetes mellitus without complications (ICD-10 - E11.9) has been doing well, will continue current regiment 05/14/2025 Cough in adult (ICD- 10 - R05.9) is started on prednisone and is going to repeat her ct in 3 weeks 01/08/2025 Essential hypertensi on (ICD-10 - I10) [...] (ICD-10 - R05.3) have suggested going to [place] 01/08/2025 Type 2 diabetes mellitus without complications [...] need to speak to dr reeves at [facility] about her chest ct/ Will call Ray for request 03/22/2025 Other Total time spent [...] axial skeleton 01/05/2023 Next Appt Details Provider Name:Ilirana Forrester ier, 06/14/2025 07:30:00 AM, [address] [place] [address], [address], [phone], Provider Name:Ilir Forrester ier, 07/19/2025 07:15:00 AM, [address] [place] [address], [address], [phone], Provider Name:Ilir Alfonso Usama ier, 01/11/2026 07:15:00 AM, [address] [place] [address], [address], [phone], Provider Name:Ilirana Forrester ier, 01/18/2026 09:30:00 AM, [address] [place] [address], [address], [phone], Insurance Providers Payer Name Payer Address Payer Phone Subscriber Number Group Number Insured Name Patient Relationship to Insured Coverage Start Date Coverage End Date [facility] [employer] [address] [address] [place] [address] [id number] RADHA SIFUENTES Self - patient is the insured MEDICARE [employer] [address] [place] [id number] RADHA SIFUENTES Self - patient is the insured Medical (General) History Medical History History ICD Code colonoscopy 2010 due in 5 ye ars; colonoscopy 04/13/[address] Georgina Philippe in 2027
--- NOTE | 2025-05-21 07:50 | A.OFFVIS_ITS ---
Vital Signs 05/21/25 07:55 Height 5 ft 3.5 in Weight 247 lb 5.738 oz BMI 43.1 BP 156/82 H Blood Pressure Location Rt brachial Position Sitting Pulse 92 Pulse Source Pulse Oximeter Pulse Oximetry (%) 98 Oxygen Delivery Method Room Air Intake Visit Reasons: DM Intake Note: Patient present today to follow up on Diabetes Mellitus. Last Diabetic Eye exam: approx 3 weeks ago, [facility] Last Podiatry Visit: Does not see a Camera Engineer Random Glucose: 235 mg/dl Hgb A1C: 6.8% 05/21/2025 Continuous Mining Machine Lode Miner Required: No Accompanied by: Self / Same As Patient Allergies Penicillins (PENICILLINS) Allergy (Severe, Verified 05/21/25 07:56) RASH Sulfa (Sulfonamide Antibiotics) (SULFA (SULFONAMIDE ANTIBIOTICS)) Allergy (Severe, Verified 05/21/25 07:56) THROMBOCYTOPENIA, severe penicillin V Allergy (Unknown, Verified 05/21/25 07:56) rash Medication List - Last Reconciled 05/21/25 by Brandon Gomez MD acetone (urine) test (Ketostix strips) As directed albuterol sulfate 90 mcg/actuation 2 puffs inhalation Q4H PRN amlodipine 1 tab PO DAILY blood sugar diagnostic (Contour Next Test Strips) As directed blood-glucose meter (Contour Next Meter) As directed blood-glucose sensor (Dexcom G7 Sensor device) As directed every ten days budesonide-formoterol 160-4.5 mcg/actuation (Symbicort) 2 puffs inhalation Q12H calcium-magnesium 750-465 mg tabs PO cholecalciferol (vitamin D3) 125 mcg PO DAILY ezetimibe (Zetia) 10 mg PO DAILY 30 days glucagon 3 mg/actuation (Baqsimi) 3 mg intranasal ONCE 30 days Humalog KwikPen Insulin (insulin lispro) 10 - 22 units (0.1 - 0.22 mL) subcut TID 25 days NS insulin glargine (Lantus Solostar U-100 Insulin) 26 units (0.26 mL) subcut QPM insulin lispro (Humalog U-100 Insulin) infuse up to 130 units via insulin pump subcutaneously; 30 days lisinopril-hydrochlorothiazide 20-25 mg 1 tab PO BID 90 days pen needle, diabetic (BD Ultra-Fine Tammy Pen Needle) As directed five times a day prednisone 40 mg (2 x 20 mg) PO DAILY rosuvastatin 40 mg PO DAILY sertraline 1 tab PO DAILY HPI Comments Details: Patient is 64 yo female with insulin deficent DM diagnosed about 30 years ago who presents for management of diabetes. She was last seen by Mili Hart NP on 02/16/25 , She is on an ilet pump and had been doing well since her last visit C-peptide 2021 0.26 negative esau D and negative islet cell antibody She is on a jennifer insertion site. Carries extra insertion site. Carries glucometer iLet download shows she has announcing 96% usual breakfast, 96% usual lunch and 79% dinner usual. Usual breakfast is 12.3 units, usual lunch is 18.9 units unusual dinner was 13.3 units. Total daily dose is 58.2 units of basal insulin with a total daily dose of 108.9. Dinner some time speaking announced late Dexcom download shows average glucose to be 164 with G mi of 7.2% and standard deviation of 56.1 with CV of 34.2%. 64% range with 0.9% low and 26.7% high with 8.2% very high. Trend shows elevation in point of cares late afternoon to early evening. Retinopathy: last eye exam 3 wks ago Deniies neuropathy: Symptoms reported: denies numbness, tingling, cramping in lower extremities Has nephropathy: 01/08/25 eGFR>60 07/03/24 462 Has HLD on statin and Zetia with most recent LDL 122 01/08/25 Denies dyspnea, chest pain or symptoms of claudication Hives better She is seeing a cattle care worker for interstitial lung disease. She is currently on prednisone 5mg daily which has increased her insulin requirements which the pump has been able to accommodate. Cough has not improved when she is on higher prednisone. She trialed stopping lisinopril for one month and no change in cough Exercise: Walks dogs for 1/2 hour on most days. 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 HLD (hyperlipidemia) Hypertension Asthma Nephrolithiasis Diabetes Surgical History History of knee replacement Family History Family/Other No known health problems Social History Household Members: Spouse Housing: House Do you presently have visiting nurse or other home services: No Alcohol intake: never Patient Tobacco Use Status: Never used Tobacco service: No Current occupational status: disabled Physical Exam Vital Signs: Last Vital Signs Pulse 92 05/21/25 07:55 BP 156/82 H 05/21/25 07:55 Pulse Ox 98 05/21/25 07:55 Oxygen Delivery Method Room Air 05/21/25 07:55 BMI result Body Mass Index 43.1 Const Other: Absence of Cushingoid features. Absence of acromegalic features. Neck exam reveals nl size thyroid about 15 gms. No thyroid nodules palpable. Lungs CTA. No areas of diminished lung sounds, wheeze or rales. Heart S1 S2, Reg R/R. No M/R G. Skin exam reveals absence of vitiligo or acanthosis nigricans. No edema Visual exam of foot performed. No ulcerations or open lesions. No inter digit maceration or fissuring. No onychomycosis, no callouses. Sensation intact to monofilament exam. Vibratory sensation is normal with 128 Hz tuning fork. 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 macrovascular complications . Plan is have the patient announce dinner meal prior to eating. Will have her follow up with lead instructor/flight attendant. (2) HLD (hyperlipidemia): Code(s): E78.5 - Hyperlipidemia, unspecified Category: Medical Plan: LDL not at goal at maximal doses of rosuvastatin and Zetia. LDL cholesterol was at 220 at 1 point suggesting the presence of familial hypercholesterolemia . We will try to get approval for Repatha for patient who most likely has familial hypercholesterolemia is a very high risk for cardiovascular disease Orders: Orders AMB Hemoglobin A1c Today E13.9 - Other specified diabetes mellitus without complications, S36.209S - Unspecified injury of unspecified part of pancreas, se quela Medications: Refilled insulin lispro (Humalog U-100 Insulin) infuse up to 130 units via insulin pump subcutaneously; 50 mL 3RF 30 days E11.9 - Type 2 diabetes mellitus without complications Coding Level of Care Code Est Pt Level 4 (86182) Complex EM visit Add On G2211 Diagnoses 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
[2025-05-21 07:55] VITALS: BP 156/82; PULSE 92; O2SAT 98; BMI 43.1
[2025-05-21 08:10] LABS: Glucose, Whole Blood 235 mg/dL (60-115)
== END 2025-05-21 08:22 | disposition home or self-care (01) ==
LOC: HO.ENCR 07:42
PROVIDERS: PCP Internal Medicine; Visit Provider Internal Medicine Endocrinology, Diabetes & Metabolism
DX: E13.9 Other specified diabetes mellitus without complications (principal); S36.209S Unspecified injury of unspecified part of pancreas, sequela; E78.5 Hyperlipidemia, unspecified
CPT/HCPCS: 99214; G2211

== ENCOUNTER → 2025-05-21 07:42 | Outpatient (BNVA) | payer MEDICARE, SELFPAY | PROVIDERS: PCP Internal Medicine; Visit Provider Internal Medicine Endocrinology, Diabetes & Metabolism | DX: E13.9 Other specified diabetes mellitus without complications (principal); S36.209S Unspecified injury of unspecified part of pancreas, sequela; Z96.41 Presence of insulin pump (external) (internal) | CPT/HCPCS: 82947; 83036; 99212 ==

== ENCOUNTER 2025-06-13 12:54 | Outpatient (AMB) | payer MEDICARE, SELFPAY ==
--- OUTSIDE RECORDS SUMMARY | 2025-01-15 05:30 | XMS_ITS ---
Author Organization Ilir Hodge MD Address [address] [place] [id number] Care Team Providers Care Jockey Valet Name Role Phone Ilir Hodge Primary Care Provider [phone] Allergies Allergen (clinical drug ingredient) Drug/Non Drug Allergy documented on EMR Reaction Allergy Type Onset Date Status dulaglutide Trulicity pancreatitis Drug Allergy Ac tive Penicillin G Benzathine hives Drug Allergy Active sulfamethoxazole / trimethoprim Bactrim low platelets Drug Allergy Active REASON FOR VISIT ANNUAL EXAM Medications Medication SIG (Take, Route, Frequency, Duration) Notes Start Date End Date Status Ibuprofen 800 MG 1 tablet with food o r milk as needed Orally Three times a day 09/01/2019 Not-Taking Vitamin D3 50 MCG (2000 UT) 1 capsule Orally Once a day for 30 day(s) 01/01/2022 Not-Taking Valtrex 1 GM 1 tablet Orally 3 ti mes a day for 7 days 12/17/2020 Not-Taking Paxlovid (300/100) 20 x 150 MG & 10 x 100MG 2 tabs of nirm and 1 tab sukhjinder Orally twice for 5 days 05/15/2022 Not-Taking HumaLOG KwikPen 100 UNIT/ML 60 units Subcutaneous Active Lisinopril-hydroCHLOROth iazide 20-12.5 MG take 2 tablet by mouth once daily for 90 days Orally Once a day Active Cefpodoxime Proxetil 200 MG 1 tablet with food Orally every 12 hrs for 10 days 12/28/2024 Active Ipratropium-Albuterol 0.5-2.5 (3) MG/3ML 3 mL as needed Inhalation every 6 hrs 12/28/2024 Active Montelukast Sodium 10 MG 1 tablet Orally Once a day 12/28/2024 Active amLODIPine Besylate 10 MG 1 tablet Orally Once a day 10/24/2019 Active Symbicort 160-4.5 MCG/ACT 2 puffs Inhalation twice a day 11/13/2024 Active Sertraline HCl 100MG take 1 [facility] once daily for 90 days Orally Once a day Active Vitamin D3 125 MCG (5000 UT) 1 tablet Orally Once a day 11/05/2017 Active Albuterol Sulfate HFA 108 (90 Base) MCG/ACT 2 puffs as needed Inhalation every 4 hrs Active Rosuvastatin Calcium 40 MG 1 tablet Orally Once a day Active predniSONE 10 MG 1 tablet with food o r milk Orally Once a day Active Clobetasol Propionate 0.05 % 1 application Externally Twice a day for 10 day(s) 03/10/2021 Active Aspir-Low 81 MG 1 tablet Orally Once a day for 30 day(s) Active Social History Tobacco Use: Social History Observation [...] Problem Status W/U Status Risk Notes Problem Urticaria (634037827) Hives of unknown origin (L50.9) Active confirmed Problem Abdominal mass (finding) (951936875) Abdominal mass of other site (R19.09) Active confirmed Vital Signs Blood pressure systolic 178 mm Hg 01/16/20 25 Blood pressure diastolic 80 mm Hg 025 Height 64 in 01/15/2025 Weight 236 lbs 01/15/2025 BMI 40.5 kg/m2 01/15/2025 Encounters Encounter Location Date Provider Diagnosis Ilir Hodge MD [address] [place] [address] [address] [place], [place] [id number] 01/15/2025 Ilir Hodge Annual physical exam Z00.00 ; Abdominal mass of other site R19.09 ; Mild intermittent asthma, uncomplicated J45.20 ; Hives of unknown origin L50.9 ; Essential hypertension I10 ; Depression F32.9 ; Type 2 diabetes mellitus without complications E11.9 and Depression screening Z13.31 Assessments Encounter Date Diagnosis (ICD Code) Assessment Notes Treatment Notes Treatment Clinical Notes Section Notes 01/15/2025 Annual physical exam (ICD-10 - Z00.00) labs reviewed and discussed with patient 01/15/2025 Abdominal mass of other site (ICD-10 - R19.09) pending diagnostic testing, THE ORDER WAS FAXED TO [facility], 01/15/2025 Mild intermittent asthma, uncomplicated (ICD-10 - J45.20) followed by pulmonary 01/15/2025 Hives of unknown origin (ICD-10 - L50.9) waiting for allergy consultt 01/15/2025 Essential hypertension (ICD-10 - I10) stable, will continue current regiment 01/15/2025 Depression (ICD-10 - F32.9) stable, will continue current regiment 01/15/2025 Type 2 diabetes mellitus without complications (ICD-10 - E11.9) stable, will continue current regiment 01/15/2025 Depression screening (ICD-10 - Z13.31) negative screen Plan Of Treatment Medication Medication Name Sig Start Date Stop Date Notes HumaLOG KwikPen 100 UNIT/ML 60 units Subcutaneous Lisinopril-hydroCHLOROthiazi d e 20-12.5 MG take 2 tablet by mouth once daily for 90 days Orally Once a day Ipratropium-Albuterol 0.5-2. 5 (3) MG/3ML 3 mL as needed Inhalation every 6 hrs 12/28/2024 Montelukast Sodium 10 MG 1 tablet Orally Once a day 2024 amLODIPine Besylate 10 MG 1 tablet Orally Once a day 10/24 Symbicort 160-4.5 MCG/ACT 2 puffs Inhala tion twice a day 11/13/2024 Sertraline HCl 100MG take 1 tablet by [facility] once daily for 90 days Orally Once a day Albuterol Sulfate HFA 108 (9 0 Base) MCG/ACT 2 puffs as needed Inhalation every 4 hrs Treatment Notes Assessment Notes Annual physical exam labs reviewed and d iscussed with patient Abdominal mass of other site pending josé antonio gnostic testing, THE ORDER WAS FAXED TO [facility], Mild intermittent asthma, uncomplicated followed by pulmonary Hives of unknown origin waiting for mustapha rgy consultt Essential hypertension stable, will cont inue current regiment Depression stable, will continu e current regiment Type 2 diabetes mellitus wit hout complications stable, will continue current regiment Depression screening negative screen Pending Test Test Name Order Date [facility] 01/15/2025 Next Appt Details Follow Up: 4 Weeks, Reason: Provider Name:Ilir alford, 06/14/2025 07:30:00 AM, [address] [place] [address], [address], [id number], Provider Name:Ilir alford, 07/19/2025 07:15:00 AM, [address] [place] [address], [place] [address], [place], [place], [phone], Provider Name:Ilir alford, 01/11/2026 07:15:00 AM, [address] [place] [address], [place] [address], [place], [place], [phone], Provider Name:Ilir alford, 01/18/2026 09:30:00 AM, [address], [address], [place], [id number], Progress Notes * SAVANNAH SIFUENTES EDOB: (64 yo F)Acc No.[id number]:01/15/2025 Progress Notes Patient: SAVANNAH BRAR Provider: Lizbeth Hodge MD :[id number] A ge:64 Y S ex:Female Date:01/15/2025 Address:[address] [place] [address] [address] [id number] Subjective: * Chief Complaints: * A NNUAL EXAM * HPI: D epression Screening: PHQ-9 L ittle interest or pleasure in doing things M ore than half the days, F eeling down, depressed, or hopeless M ore than half the days, T rouble falling or staying asleep, or sleeping too much M ore than half the days, F eeling tired or having little energy M ore than half the days, P oor appetite or overeating N ot at all, F eeling bad about yourself or that you are a failure, or have let yourself or your family down N ot at all, T rouble concentrating on things, such as reading the newspaper or watching television M ore than half the days, M oving or speaking so slowly that other people could have noticed; or the opposite, being so fidgety or restless that you have been moving around a lot more than usual N ot at all, T houghts that you would be better off or of hurting yourself in some way N ot at all, T otal Score 1 0, I nterpretation M oderate Depression. I nterpretation and Intervention D epression Screening Findings N egative, F ollow-Up for Depression : review of PHQ-9 found negative result, no follow-up needed. having hives and coughing still. took flonase and hives and cough. C ommunication Needs: Communication Needs D oes the patient have a hearing impairment N o, D oes the patient have a vision impairment? Y es, I f yes, what is the vision impairment? G lasses, D oes the patient have a cognition impairment? N o. F all Risk: History H ave you had any falls with injury in the past year? N o, H ave you had two or more falls in the past year? N o. S LEVON Questions: SDOH Questions I n the past year have you been worried about losing housing? N o, I n the past year have you or any family members you live with been unable to get any of the following when it was really needed? Check all that apply: N one. S ymptom(s): patient is a 64 yo female here for annual visit with review of recent labs and follow up of chronic issues. * ROS: G eneral/Constitutional: Change in appetite d enies. C hills d enies. F ever d enies. O phthalmologic: Blurred vision d enies. D ischarge d enies. P ain d enies. E NT: Decreased hearing d enies. S ore throat d enies.?Swollen glands d enies. E ndocrine: Cold intolerance d enies. E xcessive thirst d enies. H eat intolerance d enies. W eight loss d enies. R espiratory: Cough d enies. S hortness of breath at rest d enies. S hortness of breath with exertion d enies. W heezing d enies. C ardiovascular: Chest pain at rest d enies. C hest pain with exertion?denies. I rregular heartbeat d enies. S hortness of breath d enies. ? G astrointestinal: Abdominal pain d enies. C hange in bowel habits d enies. D iarrhea d enies. N ausea d enies. R ectal bleeding d enies. V omiting d enies . G enitourinary: Blood in urine d enies. D ifficulty urinating d enies. F requent urination d enies. U rinary incontinence D enies. M usculoskeletal: Painful joints d enies. W eakness d enies. ? S kin: Dry skin d enies. I tching d enies. D enies?Mole(s), changes in moles, new moles or any lesions of concern. D enies P hotosensitivity. R nela d enies. N eurologic: Dizziness d enies. F ainting d enies. H eadache?denies. * Medical History: * Surgical History: * Hospitalization/Major Diagno stic Procedure: * Family History: F ather: 63 yrs. M other: 73 yrs. 1 brother(s) , 2 sister(s) . 1 son(s) . . Father- Renal Failure Mother-Malnutition mental health issue with mother, Denies mental health/substance abuse family history, No pertinent family medical history. * Social History: T obacco Use: T obacco Use/Smoking P atient is a n onsmoker, A dditional Findings: Tobacco Non-User C urrent non-smoker, currently using no form of tobacco. D rugs/Alcohol: A lcohol Screen D id you have a drink containing alcohol in the past year? Y es, H ow often did you have a drink containing alcohol in the past year? M onthly or less (1 point), H ow many drinks did you have on a typical day when you were drinking in the past year? 1 or 2 drinks (0 point), H ow often did you have 6 or more drinks on one occasion in the past year? N ever (0 point), P oints 1 , I nterpretation N egative. M iscellaneous: C affeine: yes, 1-2 cups per day. Children: yes. Exercise: yes, treadmill x 1 hour 2 times a week. Home smoke detector use: yes. Housing: owning. Living with: alone. Marital status: . Occupation: works full-time. Pets: none. Travel outside of the [place]: no. * Medications: T akingpredniSONE 10 MG Tablet 1 tablet with food or milk Orally Once a day Aspir- Low 81 MG Tablet Delayed Release 1 tablet [...] Tablet 1 tablet Orally Once a day Cefpodoxime Proxetil 200 MG Tablet 1 tablet with food Orally every 12 hrs Ipratropium-Albuterol 0.5-2.5 (3) MG/3ML Solution 3 mL as needed Inhalation every 6 hrs Montelukast Sodium 10 MG Tablet 1 tablet Orally Once a day HumaLOG KwikPen 100 UNIT/ML Solution Pen-injector 60 units Subcutaneous Taking predniSONE 10 MG Tablet 1 tablet with food or milk Orally Once a day Taking Aspir-Low 81 MG Tablet [...] 1 tablet Orally Once a day Taking Cefpodoxime Proxetil 200 MG Tablet 1 tablet with food Orally every 12 hrs Taking Ipratropium-Albuterol 0.5- 2.5 (3) MG/3ML Solution 3 mL as needed Inhalation every 6 hrs Taking Montelukast Sodium 10 MG Tablet 1 tablet Orally Once [...] Objective: * Vitals: H t: 64, Wt: 236, BMI:40.5, BP:178/80, Repeat BP:158/90, Wt-k.05. * P ast Orders: L ab:Vitamin D 25-OH Total (Order Date - 01/08/2025) (Collection Date & Time - 01/08/2025 07:30 AM) Value Reference Range Vitamin D 25-OH Total 20.3 L >30 - ng/mL L ab:Microalbumin, Random (Order Date - 01/08/2025) (Collection Date & Time - 01/08/2025 07:30 AM) Value Reference Range Creatinine Urine 177.53 - mg/dL Microalbumin Urine 293.0 - mg/L Microalbum Creatinine Ratio Ur 165.0 H <30 - ug/ mg cr L ab:Hemoglobin A1c (Order Date - 01/08/2025) (Collection Date & Time - 01/08/2025 07:30 AM) Value Reference Range Hemoglobin A1c % 7.0 H <6.0 - % Estimated Average Glucose 154 - mg/dL L ab:UA ClnCatch+Micro w/rflx Cult (Order Date - 01/08/2025) (Collection Date & Time - 01/08/2025 07:30 AM) Value Reference Range Color Urine Yellow - Appearance Urine Hazy - PH 6.0 5.0-9.0 - Glucose Urine UA Negative Negative - mg/dL Urine Blood Negative Negative - Specific [place] - Urine 1.025 1.005-1.025 - Urine Protein 30 (1+) A Neg-Trace - mg/dL Urine Ketones Negative Negative - mg/dL Nitrite Urine Negative Negative - Leukocyte Esterase Urine Negative Negative - RBC Urine 0-2 0-2 - /HPF WBC Urine 0-5 0-5 - /HPF Squamous Epithelial Cell Urine 0-2 0-2 - /HP F Bacteria Urine 1+ None Seen - Hyaline Casts Urine 0-2 0-2 - /LPF L ab:Complete Blood Count Auto Diff (Order Date - 01/08/2025) (Collection Date & Time - 01/08/2025 07:30 AM) Value Reference Range White Blood Count 6.5 4.8-10.8 - X10*3/uL Red Blood Count 4.81 4.20-5.50 - X10*6/uL Hemoglobin 14.1 12.0-16.0 - g/dl Hematocrit 43.7 37.0-47.0 - % Mean Corpuscular Volume 90.9 80.0-98.0 - fL Mean Corpuscular Hemoglobin 29.3 27.0-33.0 - pg Mean Corpuscular HGB Conc 32.3 31.0-35.0 - g/ dl Red Cell Distribution Width 12.7 11.0-16.0 - % Platelet Count 319 160-400 - X10*3/uL Mean Platelet Volume 10.3 9.4-12.3 - fL Neutrophils Percent Auto 61.8 45-73 - % Imm Gran Pct Auto 0.3 0.0-0.4 - % Lymphocytes Percent Auto 28.2 20-40 - % Monocytes Percent Auto 5.7 2-11 - % Eosinophils Percent Auto 4.0 0-4 - % Basophils Percent Auto 0.0 0-2 - % NRBC Pct Auto 0.0 0.0-0.2 - /100WBC Neutrophils Absolute Auto 4.0 2.0-8.3 - x10* 3/uL Imm Gran Abs Auto 0.02 0.00-0.03 - X10*3/uL Lymphocytes Absolute Auto 1.8 1.2-4.9 - X10* 3/uL Monocytes Absolute Auto 0.4 0.1-1.2 - X10*3/ uL Eosinophils Absolute Auto 0.3 0.0-0.4 - X10* 3/uL Basophils Absolute Auto 0.0 0.0-0.2 - X10*3/ uL NRBC Abs Auto 0.000 0.0-0.012 - X10*3/uL L ab:Lipid Panel (Order Date - 01/08/2025) (Collection Date & Time - 01/08/2025 07:30 AM) Value Reference Range Triglycerides 96 <150 - mg/dL Cholesterol 197 <200 - mg/dL LDL Cholesterol Calculated 122 H <100 - mg/dL HDL Cholesterol 56 >40 - mg/dL L ab:Comprehensive [place]. Panel Fast (Order Date - 01/08/2025) (Collection Date & Time - 01/08/2025 07:30 AM) Value Reference Range Sodium 144 135-145 - mmol/L Bilirubin Total 0.7 0.0-1.0 - mg/dL Aspartate Amino Transferase 38 H 5-31 - U/L Alanine Aminotransferase 28 0-31 - U/L Total Protein 6.6 6.5-8.0 - g/dL Albumin Level 3.9 3.5-5.0 - g/dL Alkaline Phosphatase 78 39-117 - U/L Potassium 4.7 3.3-5.1 - mmol/L Chloride 108 96-108 - mmol/L Carbon Dioxide 27 22-29 - mmol/L Anion Gap 14 12-20 - Blood Urea Nitrogen 17 H 9-16 - mg/dL Creatinine 0.81 0.5-1.4 - mg/dL Estimated Glomerular Filt Rate > 60 - Glucose Fasting 123 H 60-99 - mg/dL Calcium 9.7 8.4-10.2 - mg/dL * Examination: G eneral Examination: GENERAL APPEARANCE: w ell developed, well nourished, in no acute distress. HEAD: n ormocephalic, atraumatic. EYES: p upils equal, round, reactive to light and accommodation, sclera non-icteric. EARS: n ormal. ORAL CAVITY: m uc[place] moist. THROAT: c lear. NECK/THYROID: n win supple, full range of motion, no cervical lymphadenopathy, no bruits. SKIN: w arm and dry, no suspicious lesions. HEART: r egular rate and rhythm, S1, S2 normal, no murmurs.? LUNGS: c lear to auscultation bilaterally. BREASTS: N o mass, no lump. ABDOMEN: s oft, nontender, nondistended, bowel sounds present, normal, no organomegaly , , abnormal with a mass in rt upper quadrant. RECTAL EXAM: d one by commissioned fire officer. FEMALE GENITOURINARY: d one by commissioned fire officer. EXTREMITIES: n o clubbing, cyanosis, or edema. NEUROLOGIC: n onfocal, motor strength normal upper and lower extremities, sensory exam intact. Assessment: * Assessment: 1. A nnual physical exam - Z00.00 (Primary) 2 . A bdominal mass of other site - R19.09 3 . M ild intermittent asthma, uncomplicated - J45.20 ?4. H nestor of unknown origin - L50.9 5 . E ssential hypertension - I10 6. D epression - F32.9 7 . T ype 2 diabetes mellitus without complications - E11.9 8 . D epression screening - Z13.31 Plan: * Treatment: 2. A bdominal mass of other site I maging: US FIGUEROA Notes: pending diagnostic testing, THE ORDER WAS FAXED TO [facility], ?? 3.?Mild intermittent asthma, uncomplicated? Continue Albuterol Sulfate HFA Aerosol Solution, 108 (90 Base) MCG/ACT, 2 puffs as needed, Inhalation, every 4 hrs;?Continue Symbicort Aerosol, 160-4.5 MCG/ACT, 2 puffs, Inhalation, twice a day; Continue Ipratropium-Albuterol Solution, 0.5-2.5 (3) MG/3ML, 3 mL as needed, Inhalation, every6 hrs;?Continue Montelukast Sodium Tablet, 10 MG, 1 tablet, Orally, Once a day.?? Notes: followed by pulmonary??4.?Hives of unknown origin? Notes: waiting for allergy consultt??5.?Essential hypertension? Continue Lisinopril-hydroCHLOROthiazide Tablet, 20-12.5 MG, take 2 tablet by mouth once daily for 90 days, Orally, Once a day;?Continue amLODIPine Besylate Tablet, 10 MG, 1 tablet, Orally, Once a day.?? Notes: stable, will continue current regiment??6.?Depression? Continue Sertraline HCl Tablet, 100MG, take 1 tablet by mouth once daily for 90 days, Orally, Once a day.?? Notes: stable, will continue current regiment??7.?Type 2 diabetes mellitus without complications? Continue HumaLOG KwikPen Solution Pen-injector, 100 UNIT/ML, 60 units, Subcutaneous.?? Notes: stable, will continue current regiment??8.?Depression screening? Notes: negative screen?? * Procedure Codes: * Preventive Medicine: Counseling: C are goal follow-up plan: Alice carter for abnormal BMI provided?Yes, Lokesh salgado Normal BMI Follow-up Lizbeth crzu encouragement to exercise. * Follow Up: 4 Weeks * * Sign off status: Completed true * Provider: Lizbeth Hodge MD Date: 0 01/15/2025 Generated for Valentin medina/Alexia/Mary Bethransmitting on: 1 04:22 PM EDT History and Physical Notes * HPI (History of Present Illness) Category Sub-Category Detail Notes Category Not es Symptom(s) patient is a 64 yo female here for annual visit with review of recent labs and follow up of chronic issues Depression Screening PHQ-9 Little inte rest or pleasure in doing things: More than half the days having hives and coughing still. took flonase and hives and cough Feeling down, depressed, or hopeless: Mo re than half the days Trouble falling or staying a sleep, or sleeping too much: More than half the days Feeling tired or having little energy: M ore than half the days Poor appetite or overeating: Not at all Feeling bad about yourself o r that you are a failure, or have let yourself or your family down: Not at all Trouble concentrating on thi ngs, such as reading the newspaper or watching television: More than half the days Moving or speaking so slowly that other people could have noticed; or the opposite, being so fidgety or restless that you have been moving around a lot more than usual: Not at all Thoughts that you would be b kobi off or of hurting yourself in some way: Not at all Total Score: 10 Interpretation: Moderate Depression Interpretation and Intervention Depression Brie valentin Findings: Negative Follow-Up for Depression: : review of PH Q-9 found negative result, no follow-up needed SDOH Questions SDOH Questions In the past year have you been worried about losing housing?: No In the past year have you or any family members you live with been unable to get any of the following when it was really needed? Check all that apply:: None Fall Risk History Have you had any falls with injury i n the past year?: No Have you had two or more falls in the year?: No Communication Needs Communication Needs Does the patient have a hearing impairment: No Does the patient have a vision impairmen t?: Yes If yes, what is the vision impairment?: Glasses Does the patient have a cognition impair ment?: No Examination Category Sub-Category Detail Notes Category Not es General Examination GENERAL APPEARANCE: well dev eloped, well nourished, in no acute distress HEAD: normocephalic, atrau matic EYES: pupils equal, round, reactive to light and accommodation, sclera non-icteric EARS: normal THROAT: clear NECK/THYROID: neck supple, full ra nge of motion, no cervical lymphadenopathy, no bruits HEART: regular rate and rhy thm, S1, S2 normal, no murmurs LUNGS: clear to auscultatio n bilaterally ABDOMEN: soft, nontender, non distended, bowel sounds present, normal, no organomegaly , , abnormal with a mass in rt upper quadrant NEUROLOGIC: nonfocal, motor stre ngth normal upper and lower extremities, sensory exam intact SKIN: warm and dry, no kevin picious lesions EXTREMITIES: no clubbing, cyanosi s, or edema BREASTS: No mass, no lump RECTAL EXAM: done by commissioned fire officer FEMALE GENITOURINARY: done by commissioned fire officer ORAL CAVITY: mucosa moist
--- OUTSIDE RECORDS SUMMARY | 2025-02-19 05:15 | XMS_ITS ---
Author Organization Ilir Hodge MD Address [address] [place] [phone] Care Team Providers Care Braid Cutter Name Role Phone Ilir Hodge Primary Care Provider [phone] Allergies Allergen (clinical drug ingredient) Drug/Non Drug [...] Sertraline HCl 100MG take 1 tablet by me ut once daily for 90 days Orally [...] Date Provider Diagnosis Ilir Hodge MD [address] [place] [address] [place] [phone] 02/19/2025 Ilir Hodge Hives of unknown origin [...] (ICD-10 - R05.3) have suggested going [facility] 02/19/2025 Other need to speak to dr reeves at [facility] about her chest ct/ Will call [facility] [...] regiment Persistent cough [facility] suggested [facility] Other need to speak to dr reeves at [facility] about her chest ct/ Will call [facility] for request Next Appt Details Follow Up: 4 Weeks, Reason: Provider Name:Ilir alford, 06/14/2025 07:30:00 AM, [address] [place] [address], [address] [place] [address], [phone], Provider Name:Ilir alford, 07/19/2025 07:15:00 AM, [address] [place] [address], [address] [place] [address], [phone], Provider Name:Ilir alford, 01/11/2026 07:15:00 AM, [address] [place] [address], [address] [place] [address], [phone], Provider Name:Ilir Forrester ier, 01/18/2026 09:30:00 AM, [address] [facility] [address], [address], [place], [place], [phone], Progress Notes * SAVANNAH SIFUENTES EDOB: (64 yo F)Acc No.[id number]:02/19/2025 Progress Notes Patient: SAVANNAH BRAR Provider: Lizbeth Hodge MD :1960 A ge:64 Y S ex:Female Date:02/19/2025 Address:[address] [place] [address] Subjective: * Chief Complaints: * 4 WK [...] ersistent cough Notes: have suggested going to [facility] 5. O thers Notes: need to speak to dr reeves at [facility] about her chest ct/ Will call [facility] for request ? * Procedure Codes: * Follow Up: 4 Weeks * * Sign off status: Completed true * Provider: Lizbeth Hodge MD Date: 0 02/19/2025 Generated for Valentin medina/Alexia/Amberitting on: 1 04:22 PM EDT History and [...]
--- OUTSIDE RECORDS SUMMARY | 2025-05-14 05:00 | XMS_ITS ---
Author Organization Ilir Hodge MD Address [address] [place] [phone] Care Team Providers Care Doughnut Machine Operator Helper Name Role Phone Ilir Hodge [...] Date Provider Diagnosis Ilir Hodge MD [address] [place] [address] [place] [phone] 05/14/2025 Ilir Hodge Type 2 diabetes mellitus [...] Reason: Provider Name:Ilir alford, 06/14/2025 07:30:00 AM, [address] [place] [address], [address], [phone], Provider Name:Ilir alford, 07/19/2025 07:15:00 AM, [address] [place] [address], [address], [phone], Provider Name:Ilir alford, 01/11/2026 07:15:00 AM, [address] [place] [address], [address], [phone], Provider Name:Ilir alford, 01/18/2026 09:30:00 AM, [address] [place] [address], [address], [phone], Progress Notes * SAVANNAH SIFUENTES EDOB: 9 (64 yo F)Acc No.[id number]:05/14/2025 Progress Notes Patient: SAVANNAH BRAR Provider: Lizbeth Hodge MD :1960 A ge:64 Y S ex:Female Date:05/14/2025 Address:[address] [place] [address] [id number] Subjective: * Chief Complaints: * 2 monthPatient [...] 0 05/14/2025 Generated for Valentin medina/Alexia/Majorsmitting on: 1 04:22 PM EDT History and [...]
--- NOTE | 2025-06-13 13:07 | A.OFFVIS_ITS ---
Vital Signs 06/13/25 13:12 Height 5 ft 3.5 in Weight 251 lb BMI 43.8 Pulse 97 Pulse Source Pulse Oximeter Pulse Oximetry (%) 97 Oxygen Delivery Method Room Air Intake Visit Reasons: bronchitis Email Marketing Executive Required: No Associate Sales Representative: Associate Sales Representative offered & declined Accompanied by: Self / Same As Patient Allergies Penicillins (PENICILLINS) Allergy (Severe, Verified 06/13/25 13:14) RASH Sulfa (Sulfonamide Antibiotics) (SULFA (SULFONAMIDE ANTIBIOTICS)) Allergy (Severe, Verified 06/13/25 13:14) THROMBOCYTOPENIA, severe penicillin V Allergy (Unknown, Verified 06/13/25 13:14) rash Medication List - Last Reconciled 06/13/25 by Kelli Galeana LPN acetone (urine) test (Ketostix strips) As directed albuterol sulfate 90 mcg/actuation 2 puffs inhalation Q4H PRN amlodipine 1 tab PO DAILY blood sugar diagnostic (Contour Next Test Strips) As directed blood-glucose meter (Contour Next Meter) As directed blood-glucose sensor (Entreda G7 Sensor device) As directed every ten days budesonide-formoterol 160-4.5 mcg/actuation (Symbicort) 2 puffs inhalation Q12H calcium-magnesium 750-465 mg tabs PO cholecalciferol (vitamin D3) 125 mcg PO DAILY ezetimibe (Zetia) 10 mg PO DAILY 30 days glucagon 3 mg/actuation (Baqsimi) 3 mg intranasal ONCE 30 days Humalog KwikPen Insulin (insulin lispro) 10 - 22 units (0.1 - 0.22 mL) subcut TID 25 days NS insulin glargine (Lantus Solostar U-100 Insulin) 26 units (0.26 mL) subcut QPM insulin lispro (Humalog U-100 Insulin) infuse up to 130 units via insulin pump subcutaneously; 30 days lisinopril-hydrochlorothiazide 20-25 mg 1 tab PO BID 90 days pen needle, diabetic (BD Ultra-Fine Tammy Pen Needle) As directed five times a day prednisone 40 mg (2 x 20 mg) PO DAILY Repatha SureClick (evolocumab) 140 mg subcut Q2W NS rosuvastatin 40 mg PO DAILY sertraline 1 tab PO DAILY HPI HPI bronchitis: Details: Radha is a pleasant 65 year old female, never smoker, with underlying DMII h/o DKA, HTN and HLD. She has continued with persistent dry hacking cough for the past [address] 11/2024 suggestive of evolving ILD of RLL, initially report read as unremarkable however an addendum made on CT stating subtle areas of peripheral groundglass appearance RIGHT lower lobe. We had previously discussed this finding in addition to elevated VARUN being suggestive of an ILD. She has had resolution of cough with prednisone however recurred shortly after cessation. She continued with persistent coughing and was started on prednisone 40 mg x 1 month with repeat imaging performed to assess for improvements in likely ILD. Today she presents to review chest CT report. Since initiating course of prednisone patient has had 50% improvements in cough however cough continues to be hacking in nature. Given elevated VARUN patient was referred to Rheumatology and has an upcoming appt in July. Of note, patient reports new onset petechiae of bilateral upper arms, LLE and neck over the last few days. She does report prior h/o thrombocytopenia with the use of sulfa medications and has tolerated prednisone previously. 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 HLD (hyperlipidemia) Hypertension Asthma Nephrolithiasis Diabetes Surgical History History of knee replacement Family History Family/Other No known health problems Social History Household Members: Spouse Housing: House Do you presently have visiting nurse or other home services: No Alcohol intake: never Patient Tobacco Use Status: Never used Tobacco service: No Current occupational status: disabled Review of Systems Const Denies chills, Denies excessive sweating, Denies fever(s), Denies headache(s) and Denies night sweats Eyes Denies dry eyes, Denies irritation and Denies itchy eyes ENT Reports Normal hearing present, Denies headache(s), Denies nasal congestion, Denies nasal discharge, Denies post nasal drip and Denies sore throat Card Denies chest pain, Denies chest pain at rest, Denies chest pain with activity, Denies claudication, Denies leg edema, Denies orthopnea and Denies paroxysmal nocturnal dyspnea Resp Denies change in phlegm color, Denies chest congestion, Reports cough, Denies hemoptysis, Denies excessive phlegm production, Denies pain on inspiration, Denies pain with cough, Denies stridor and Reports wheezing Musc Denies myalgias Neuro Reports Normal hearing present and Denies headache(s) Endo Denies excessive sweating Wero/Lymph Denies lymphadenopathy Aller/Immun Denies itchy eyes, Denies seasonal rhinorrhea and Reports wheezing Physical Exam Vital Signs: Last Vital Signs Pulse 97 06/13/25 13:12 Pulse Ox 97 06/13/25 13:12 Oxygen Delivery Method Room Air 06/13/25 13:12 BMI result Body Mass Index 43.8 Const General: cooperative, healthy appearing, comfortable, no acute distress, well developed and alert Nutritional Appearance: obese Orientation/consciousness: patient oriented x3 Limitations: no limitations HEENT Head: Yes normal to inspection, Yes normocephalic and Yes atraumatic Ears: hearing grossly normal bilaterally and external ears normal Eyes General: appearance normal, both eyes and all related structures Eyelids: Yes eyelids normal Sclerae: sclerae normal EOM: EOMs intact bilaterally Neck Neck: Yes normal visual inspection and Yes no lymphadenopathy Lymphatic: no lymphadenopathy noted Chest Chest palpation & inspection: normal inspection of the chest Resp Other: persistent dry cough throughout visit Effort & Inspection: normal respiratory effort, able to speak in complete sentences, no audible wheezes, Actively coughing, no stridor, not tachypneic, no tripod positioning and no use of accessory muscles Auscultation: clear to auscultation bilaterally Cardio Jugular venous distension: no JVD Rate: regular rate Rhythm: regular rhythm Skin Other: warm, dry General skin exam: no rashes or lesions noted Neuro General: patient oriented x3 Cranial nerves: Yes Normal hearing present Cognition (Neuro): normal cognition Gait exam (Neuro): Normal gait present Extrem General: Yes normal to inspection, Yes capillary refill normal, Yes no clubbing, cyanosis or edema and Yes no pedal edema Psych Appearance: grossly normal and well kempt Speech and movement: Normal speech and movement present and Clear speech present Affect: normal affect Attitude: cooperative Thought process: Normal thought process present Thought content: Normal thought content present Insight: Good insight present (Psych) Judgement: Good judgement present (Psych) Results Reviewed Results Reviewed: Exam Date: 06/12/2025 PROCEDURE: CT CHEST without CONTRAST INDICATION: Interstitial pulmonary disease. TECHNIQUE: CT of the chest was performed without contrast. Automated mA/kV exposure control was utilized and patient examination was performed in strict accordance with principles of ALARA. RADIATION AMOUNT: 455.2 mGy-cm. COMPARISON: CT chest 12/01/2024. FINDINGS: The heart is normal in size without pericardial effusion. No significant coronary calcifications. Some small lymph nodes in the mediastinum but no enlarged adenopathy seen. There is no pleural effusion, pleural thickening, or pneumothorax. The airways are patent. There is a 1.5 cm new spiculated noncalcified nodular appearing density in the right middle lobe. This extends to the pleural surface. No interstitial lung disease is seen. Resolution of the previously described groundglass opacities. Some cortical hypodensities incompletely imaged within the upper portions of both kidneys, favor cysts. Upper abdomen demonstrates no acute pathology. There are no acute fractures. No suspicious bony lesions. There are degenerative changes in the spine. IMPRESSION: 1.There is a new 1.5 cm spiculated noncalcified nodular density in the right middle lobe. This extends to the pleural surface. This could represent a focal area of pneumonia. Neoplasm felt to be less likely as this is a new finding since the very recent CT scan of the chest.. Follow-up CT scan in 3-6 months may be helpful to document resolution. 2.Resolution of the previously described groundglass opacities. 3.No interstitial lung disease is seen. Signed by Audie Latif MD Electronically signed on 06/13/2025 4:45:[address] ADUIE LATIF III, MD Assessment & Plan Assessment & Plan (1) Interstitial lung disease: Code(s): J84.9 - Interstitial pulmonary disease, unspecified Category: Medical (2) Asthma: Code(s): J45.909 - Unspecified asthma, uncomplicated Category: Medical (3) Chronic cough: Code(s): R05.3 - Chronic cough Category: Medical (4) Idiopathic urticaria: Code(s): L50.1 - Idiopathic urticaria Category: Medical Plan Radha continues with chronic dry hacking persistent cough since August that had resolved completely with prednisone. Unfortunately patient has continued on 40 mg of prednisone x 5 weeks with 50% improvement however cough continues to be persistent. Recent chest CT reveals resolution of previously noted ggo of RLL although there is new development of RUL spiculated nodule suggestive of continued inflammatory/infectious process. Again reviewed CT chest with likely an evolving ILD of the RLL and significantly elevated VARUN however with new density we discussed possible infectious process. Will treat with Levaquin, side effects reviewed. Will further discuss with Dr. Peralta and notify patient on any changes to treatment plan. Given her prior h/o thrombocytopenia, will send for cbc today to assess and start tapering prednisone. Will call patient with results when available. Will consider PFT in the future, unlikely she would be able to complete with symptoms. All questions were answered and patient is in agreement of plan. Orders: Orders Complete Blood Count Auto Diff Today Z86.2 - Personal history of diseases of the blood and blood-forming organs and certain disorders involving the immune mechanism Medications: New levofloxacin 750 mg PO DAILY 7 tabs 0RF prednisone see taper instructions 30 mg x 5 days, 20 mg x 5 days, 10 mg x 5 days 10 mg PO DIRECTED 30 tabs 0RF Coding Level of Care Code Est Pt Level 4 (65336) Complex EM visit Add On G2211 Diagnoses Interstitial lung disease J84.9 Asthma J45.909 Chronic cough R05.3 Idiopathic urticaria L50.1
[2025-06-13 13:12] VITALS: PULSE 97; O2SAT 97; BMI 43.8
--- OUTSIDE RECORDS SUMMARY | 2025-06-13 16:23 | XMS_ITS | Patient Health Record ---
Author Organization Ilir Hodge MD Address [address] [place], [place] [id number] Care Team Providers Care Retail District Manager Name Role Phone Ilir Hodge Primary [...] Panel Reviewed date:07/06/2024 04:44:07 PM Interpretation: Performing Lab:[facility], [address] [place] [phone] Notes/Report: Bilirubin Total 1.0 0.0-1.0 mg/dL Bilirubin Direct 0.3 0.0-0.5 mg/dL Aspartate Amino Transferase 34 5-31 U/L Alanine Aminotransferase 23 0-31 U/L Total Protein 7.1 6.5-8.0 g/dL Albumin Level 4.0 3.5-5.0 g/dL Alkaline Phosphatase 80 39-117 U/L Glucose Fasting Reviewed date:07/06/2024 04:39:33 PM Interpretation: Performing Lab:[facility], [address] [place] [phone] Notes/Report: Glucose Fasting 103 60-99 mg/dL A fasting glucose from 100-125 mg/dl is considered impaired (pre-diabetes). Lipid Panel with Reflex Reviewed date:07/06/2024 04:43:47 PM Interpretation: Performing Lab:[facility], [address] [place] [phone] Notes/Report: Triglycerides 105 <150 mg/dL Desirable Triglyceride: [...] A1c Reviewed date:07/06/2024 12:27:15 PM Interpretation: Performing Lab:[facility], [address] [place] [phone] Notes/Report: Hemoglobin A1c % 6.7 <6.0 % [...] average glucose, using the formula of the K1G-Prcvnhb Average Glucose study (ADAG), Diabetes Care, Vol.31,#8, Mar. 2007 Complete Blood Count Auto Di ff Reviewed date:01/08/2025 12:36:23 PM Interpretation: Performing Lab:[facility], [address] [place] [phone] Notes/Report: White Blood Count 6.5 4.8-10.8 X10*3/uL [...] NRBC Abs Auto 0.000 0.0-0.012 X10*3/uL Comprehensive Cullen. Panel Fa st Reviewed date:01/10/2025 07:02:22 PM Interpretation: Performing Lab:[facility], [address] [place] [phone] Notes/Report: Sodium 144 135-145 mmol/L Potassium 4.7 [...] Panel Reviewed date:01/08/2025 05:12:45 PM Interpretation: Performing Lab:[facility], [address] [place] [phone] Notes/Report: Triglycerides 96 <150 mg/dL Desirable Triglyceride: [...] Total Reviewed date:01/08/2025 05:13:08 PM Interpretation: Performing Lab:[address] [address] Notes/Report: Vitamin D 25-OH Total 20.3 >30 [...] Random Reviewed date:01/08/2025 12:34:10 PM Interpretation: Performing Lab:[facility], [address] [place] [phone] Notes/Report: Creatinine Urine 177.53 Microalbumin Urine 293.0 Microalbum/Creatinine Ratio Ur 165.0 <30 ug/mg cr Albumin/Creatinine Ratio Reference Ranges: Normal: < 30 ug/mg creatinine Microalbuminuria: 30 - 300 ug/mg creatinine Clinical Albuminuria: > 300 ug/mg creatinine Hemoglobin A1c Reviewed date:01/08/2025 03:03:50 PM Interpretation: Performing Lab:[facility], [address] [place] [phone] Notes/Report: Hemoglobin A1c % 7.0 <6.0 % [...] average glucose, using the formula of the Z5W-Ntkjdhg Average Glucose study (ADAG), Diabetes Care, Vol.31,#8, Mar. 2007 UA ClnCatch+Micro w/rflx Cul t Reviewed date:01/08/2025 12:35:06 PM Interpretation: Performing Lab:[facility], [address] [place] [phone] Notes/Report: Urine, Clean Catch Color Urine Yellow Appearance Urine Hazy PH 6.0 5.0-9.0 Glucose Urine UA Negative Negative mg/dL Urine Blood Negative Negative Specific Gravelly - Urine 1.025 1.005-1.025 Urine Protein 30 [...] Blood Reviewed date:06/14/2024 02:17:33 PM Interpretation: Performing Lab:[facility], [address] [place] [phone] Notes/Report: Glucose, Whole Blood 139 60-115 mg/dL METER #: [id number] Testing performed in the [facility], [facility]. Lipid Panel Reviewed date:07/03/2024 11:07:17 AM Interpretation: Performing Lab:[address] [phone] Notes/Report: Triglycerides 117 <150 mg/dL Desirable Triglyceride: [...] Thyroxine) Reviewed date:07/03/2024 11:15:23 AM Interpretation: Performing Lab:[facility], [address] [place] [phone] Notes/Report: Free T4 (Free Thyroxine) 1.14 0.71-1.85 ng/dL Thyroid Stimulating Hormone Reviewed date:07/03/2024 11:15:32 AM Interpretation: Performing Lab:[facility], [address] [place] [phone] Notes/Report: Thyroid Stimulating Hormone 1.60 0.32-4.0 uIU/mL TSH 3rd Generation ([facility]) Microalbumin, Random Reviewed date:07/03/2024 11:15:50 AM Interpretation: Performing Lab:[facility], [address] [place] [phone] Notes/Report: Creatinine Urine 155.38 Microalbumin Urine 462.0 Microalbum/Creatinine Ratio Ur 297.3 <30 ug/mg cr Albumin/Creatinine Ratio Reference Ranges: Normal: < 30 ug/mg creatinine Microalbuminuria: 30 - 300 ug/mg creatinine Clinical Albuminuria: > 300 ug/mg creatinine Luis A Garza Reviewed date:07/06/2024 12:26:46 PM Interpretation: Performing Lab:[facility], [address] [place] [phone] Notes/Report: Luis A Garza See Note Specimen held untested for 24 hours; Call to request Chemistry testing. Complete Blood Count Auto Di ff Reviewed date:08/14/2024 02:07:47 PM Interpretation: Performing Lab:[facility], [address] [place] [phone] Notes/Report: White Blood Count 7.2 4.8-10.8 X10*3/uL [...] Panel Reviewed date:08/14/2024 02:07:32 PM Interpretation: Performing Lab:[facility], [address] [place] [phone] Notes/Report: Bilirubin Total 0.7 0.0-1.0 mg/dL Bilirubin Direct 0.2 0.0-0.5 mg/dL Aspartate Amino Transferase 27 5-31 U/L Alanine Aminotransferase 25 0-31 U/L Total Protein 7.1 6.5-8.0 g/dL Albumin Level 4.0 3.5-5.0 g/dL Alkaline Phosphatase 110 39-117 U/L Basic Metabolic Panel Reviewed date:08/14/2024 02:07:16 PM Interpretation: Performing Lab:[facility], [address] [place] [phone] Notes/Report: Sodium 142 135-145 mmol/L Potassium 4.3 [...] Sensitivity Reviewed date:08/14/2024 02:07:24 PM Interpretation: Performing Lab:[facility], [address] [place] [phone] Notes/Report: Troponin-I High Sensitivity 6.1 <3.5-17.0 ng/L The Romo high sensitivity Troponin-I results should be used in conjunction with other diagnostic information such as ECG, clinical observations and information, and patient symptoms to aid in the diagnosis of TN. CT head/brain wo con Reviewed date:08/15/2024 12:24:33 PM Interpretation: Performing Lab: Notes/Report: [address] [address] [address] Scan Report Signed Patient: Radha Sifuentes MR#: [id number] 93 : 1960 Acct:[id number] Age/Sex: 64 / F ADM Date: 08/14/24 Loc: HO.ED Attending Dr: Ordering Physician: Riley Cummings Date of Service: 08/14/24 Procedure(s): CT head/brain wo IV con Accession Number(s): [id number] cc: Riley Cummings; Ilir Hodge MD EXAMINATION: [...] by: Carlos Huitron MD 08/14/2024 05:48 PM [facility] Dictated By: Carlos Huitron MD Signed By: <Electronically signed by Carlos Huitron MD in OV> 08/14/24 1748 DD/ 1516 TD/TT: 08/14/24 1617 Commercial Stripper: [address] [address] [address] Scan Report Signed Patient: Sandra Sifuentes MR#: [id number] 93 : 1960 Acct:[id number] Age/Sex: 64 / F ADM Date: 08/14/24 Loc: HO.ED Attending Dr: Ordering Physician: Riley Cummings Date of Service: 08/14/24 Procedure(s): CT head/brain wo IV con Accession Number(s): [id number] cc: Riley Cummings; Ilir Hodge MD EXAMINATION: [...] con IMPRESSION: No CT evidence of ac chinik intracranial hemorrhage or edematous territorial infarction.. Electronically raad d by: Carlos Huitron MD 08/14/2024 05:48 PM [facility] Dictated By: Carlos Huitron MD Signed By: <Electronically signed by Carlos Huitron MD in OV> 08/14/24 1748 DD/ 1516 TD/TT: 08/14/24 1617 Commercial Stripper: HEATH Troponin-I High Sensitivity Reviewed date:08/14/2024 04:57:01 PM Interpretation: Performing Lab:[facility], [address] [place] [phone] Notes/Report: Troponin-I High Sensitivity 8.8 <3.5-17.0 ng/L The Romo high sensitivity Troponin-I results should be used in conjunction with other diagnostic information such as ECG, clinical observations and information, and patient symptoms to aid in the diagnosis of TN. Glucose, Whole Blood Reviewed date:09/11/2024 12:40:04 PM Interpretation: Performing Lab:[facility], [address] [place] [phone] Notes/Report: Glucose, Whole Blood 139 60-115 mg/dL METER #: [id number] Testing performed in the [facility], [address] [place] [address] [place] [address]. MM tomosynthesis screening B I Reviewed date:09/28/2024 04:55:24 PM Interpretation: Performing Lab: Notes/Report: [address] [place] [address] Mammography Report Signed Patient: Radha Sifuentes MR#: [id number] 93 : 1960 Acct:[id number] Age/Sex: 64 / F ADM Date: 09/20/24 Loc: HO.MAMMO Attending Dr: Ilir Hodge MD Ordering Physician: Ilir Hodge MD Results: 2Be nign Findings Date of Service: 09/20/24 Follow Up: 1 Year From [facility] ina Mammogram Procedure(s): MM tomosynthesis screening BI Accession Number(s): [id number] cc: Ilir Hodge MD EXAMINATION: MM SCREENING [...] by: Kateryna Quevedo DO 09/28/2024 02:51 PM [facility] Dictated By: Kateryna Quevedo DO Signed By: <Electronically signed by Kateryna Quevedo DO in OV> 09/28/24 1451 DD/ 1045 TD/TT: 09/20/24 1108 Commercial Stripper: [facility] [address] [place] [address] Mammography Report Signed Patient: Sandra Sifuentes MR#: [id number] 93 : 1960 Acct:[id number] Age/Sex: 64 / F ADM Date: 09/20/24 Loc: HO.MAMMO Attending Dr: Ilir Hodge MD Ordering Physician: Ilir Hodge MD Results: 2Be nign Findings Date of Service: 09/20/24 Follow Up: 1 Year From Orig ina Mammogram Procedure(s): MM tomosynthesis screening BI Accession Number(s): [id number] cc: Ilir Hodge MD EXAMINATION: MM SCREENING [...] by: Kateryna Quevedo DO 09/28/2024 02:51 PM [facility] Dictated By: Kateryna Quevedo DO Signed By: <Electronically signed by Kateryna Quevedo DO in OV> 09/28/24 1451 DD/ 1045 TD/TT: 09/20/24 1108 Commercial Stripper: RANDELL chest 2V Reviewed date:11/06/2024 05:58:04 PM Interpretation: Performing Lab: Notes/Report: [address] [place] [address] XRay Report Signed Patient: Radha Sifuentes MR#: [id number] 93 : 1960 Acct:[id number] Age/Sex: 64 / F ADM Date: 11/06/24 Loc: MERON Attending Dr: Ilir Hodge MD Ordering Physician: Ilir Hodge MD Date of Service: 11/06/24 Procedure(s): XR chest 2V Accession Number(s): [id number] cc: Ilir Hodge MD EXAMINATION: XR CHEST [...] OV> 11/06/24 1557 DD/ 9 TD/TT: 11/06/24937 Commercial Stripper: [address] [address] XRay Report Signed Patient: Sandra Sifuentes MR#: [id number] 93 : 1960 Acct:[id number] Age/Sex: 64 / F ADM Date: 11/06/24 Loc: MERON Attending Dr: Ilir Hodge MD Ordering Physician: Ilir Hodge MD Date of Service: 11/06/24 Procedure(s): XR marjan st 2V Accession Number(s): [id number] cc: Ilir Hodge MD EXAMINATION: XR CHES [...] 11/06/24 1557 DD/ 9 TD/TT: 11/06/24 09 Commercial Stripper: Glucose, Whole Blood Reviewed date:11/16/2024 12:16:53 PM Interpretation: Performing Lab:[facility], [address] [place] [phone] Notes/Report: Glucose, Whole Blood 53 60-115 mg/dL METER #: [id number] Testing performed in the [facility] , [place] [address], [place]. Glucose, Whole Blood Reviewed date:11/16/2024 12:16:39 PM Interpretation: Performing Lab:[facility], [address] [place] [address] Notes/Report: Glucose, Whole Blood 93 60-115 mg/dL METER #: [id number] Testing performed in the [facility] , [place] [address], [place]. Glucose, Whole Blood Reviewed date:02/16/2025 12:07:13 PM Interpretation: Performing Lab:[facility], [address] [place] [phone] Notes/Report: Glucose, Whole Blood 175 60-115 mg/dL METER #: [id number] Testing performed in the [facility] [place] [address], [place]. Cyclic Citrullinated Peptide Reviewed date:02/27/2025 12:41:48 PM Interpretation: Performing Lab:[facility], [address] [place] [phone] Notes/Report: Cyclic Citrullinated Peptide <16 Reference Range Negative: <20 Weak Positive: 20-39 Moderate Positive: 40-59 Strong Positive: >59 THIS TEST WAS PERFORMED AT: [facility] [address] [place] [phone] KIERSTEN DIAZ MD VARUN Reflex Titer and Pattern Reviewed date:02/27/2025 12:42:08 PM Interpretation: Performing Lab:[address] [address] Notes/Report: Anti Nuclear Antibody Screen POSITIVE NEGATIVE VARUN IFA is a first line screen for detecting the presence of up to approximately 150 autoantibodies in various autoimmune diseases. A positive VARUN IFA result is suggestive of autoimmune disease and reflexes to titer and pattern. Further laboratory testing may be considered if clinically indicated. For additional information, please refer to http://education.Affinaquest/faq/ SAY017 (This link is being provided for informational/ [...] [employer] International Consensus on VARUN Patterns (https://doi.org/10.1 515/wcmd-1334-4299) THIS TEST WAS PERFORMED AT: [facility] [address] [place] [phone] KIERSTEN DIAZ MD VARUN Titer 2 TNP VARUN Pattern 2 TNP VARUN Titer 3 TNP VARUN Pattern 3 TNP Sjogren's Antibodies Reviewed date:02/28/2025 06:24:17 PM Interpretation: Performing Lab:[address] [address] Notes/Report: Antibody to SS-A Antigen <1.0 NEG <1.0 NEG AI Antibody to SS-B Antigen <1.0 NEG <1.0 NEG AI THIS TEST WAS PERFORMED AT: [facility] [address] [place] [phone] KIERSTEN DIAZ MD Scleroderma 70 Antibody Reviewed date:02/28/2025 06:22:56 PM Interpretation: Performing Lab:[address] [address] Notes/Report: Scleroderma 70 Antibody <1.0 NEG <1.0 NEG AI THIS TEST WAS PERFORMED AT: [facility] [address] [place] [phone] KIERSTEN DIAZ MD Anti DNA DS Antibody Reviewed date:02/28/2025 06:24:31 PM Interpretation: Performing Lab:[facility], [address] [place] [address] Notes/Report: Anti DNA DS Antibody <1 IU/mL Interpretation < or = 4 Negative 5-9 Indeterminate > or = 10 Positive THIS TEST WAS PERFORMED AT: [facility] [address] [place] [phone] KIERSTEN DIAZ MD Rheumatoid Factor Reviewed date:02/20/2025 08:53:03 AM Interpretation: Performing Lab:[facility], [address] [place] [address] Notes/Report: Rheumatoid Factor < 13.0 <15.0 IU/mL Hypersensitive Pneumonitis P rf Reviewed date:02/28/2025 06:24:39 PM Interpretation: Performing Lab:[facility], [address] [place] [address] Notes/Report: Asperg fumigatus Precip Abs NEGATIVE NEGATIVE Micropoly faeni Abs NEGATIVE NEGATIVE Grayson serum Abs NEGATIVE NEGATIVE Thermo candidus Abs NEGATIVE NEGATIVE Thermoa vulgaris #1 NEGATIVE NEGATIVE Saccharo pora viridis Abs NEGATIVE NEGATIVE This test was developed and its analytical performance characteristics have been determined by [employer]. It has not been cleared or approved by the FDA. This assay has been validated pursuant to the CLIA regulations and is used for clinical purposes. THIS TEST WAS PERFORMED AT: [facility] [address] [place] [address] ROLAN GAY MD,PHD,DAE US abdomen complete Reviewed date:02/27/2025 12:05:42 PM Interpretation: Performing Lab: Notes/Report: [facility] [address] [place] [address] Ultrasound Report Signed Patient: Radha Sifuentes MR#: [id number] 93 : 1960 Acct:[id number] Age/Sex: 64 / F ADM Date: 02/26/25 Loc: HO.HMGCX Attending Dr: Ilir Hodge MD Ordering Physician: Ilir Hodge MD Date of Service: 02/26/25 Procedure(s): US abdomen complete Accession Number(s): [id number] cc: Ilir Hodge MD CLINICAL HISTORY: ABD [...] 02/27/25 1133 DD/ 1132 TD/TT: 02/27/25 1132 Commercial Stripper: [facility] [address] [place] [address] [place] [address] Ultrasound Report Signed Patient: Sandra Sifuentes MR#: [id number] 93 : 1960 Acct:[id number] Age/Sex: 64 / F ADM Date: 02/26/25 Loc: HO.HMGCX Attending Dr: Ilir Hodge MD Ordering Physician: Ilir Hodge MD Date of Service: 02/26/25 Procedure(s): US abdomen complete Accession Number(s): [id number] cc: Ilir oHdge MD CLINICAL HISTORY: AB D MASS US [...] 02/27/25 1133 DD/ 1132 TD/TT: 02/27/25 1132 Commercial Stripper: Glucose, Whole Blood Reviewed date:05/21/2025 10:53:55 AM Interpretation: Performing Lab:[facility], [address] [place] [phone] Notes/Report: Glucose, Whole Blood 235 60-115 mg/dL METER #: [id number] Testing performed in the [facility], [address], [facility]. Reason For Referral Reason Hives of unknow orig in Diagnosis 1 Hives of unknown gregg gin (L50.9) Referral Organization Ilir Hodge MD Referring Provider First Name Ilir Referring Provider Last Name Ayesha Referring Provider Speciality Internal edicine Referred Provider COREY CHAND Referred Provider Specialty Allergy/Immu nology General Notes Penny Saenz 11:58:48 AM EST > info faxed to the [facility] p [phone] f [phone] they will call patient with an apptLetty [...] 03:03:49 PM > appt is in the [place] office, patient is aware of appointment Referral [...] a day Active Vitamin D3 50 MCG (1999 UT) 1 capsule Orally Once a day for 30 day(s) 01/01/2022 Not-Taking Immunizations Vaccine Route Administration Date Status Commjignesh nts Fluarix Quadrivalent IM Intramuscular 05/28/2014 Adminralph red Flu Vaccine IM Intramuscular 05/24/2015 Administered PPSV23 (Pnemovax) IM Intramuscular 11/22/2015 Administered Fluarix Quadrivalent IM Intramuscular 05/22/2016 Adminralph red Fluarix Quadrivalent IM Intramuscular 05/10/2017 Administjignesh red Fluarix Quadrivalent IM Intramuscular 05/10/2018 Adminralph red Prevnar 13 IM Intramuscular 11/22/2018 Administered Fluarix Quadrivalent IM Intramuscular 05/22/2019 Adminralph red Covid Vaccine Unknown 10/04/2020 Administered Moderna A t work Covid Vaccine Unknown 11/01/2020 Administered Moderna TDaP Unknown 12/05/2020 Administered wALGRPOLO'S PPSV23 (Pnemovax) IM Intramuscular 03/10/2021 Administered Fluarix Quadrivalent IM Intramuscular 06/10/2021 Adminraplh son SARS-COV-2 Moderna Unknown 07/17/2021 Administered Flu [...] Problem Status W/U Status Risk Notes Problem 467387936 Type 2 diabetes mellitus without complications (E11.9) Active confirmed Problem 09293023 Lymphocytosis (D72.820) Active confirm ed Problem 90434939 Depression (F32.9) Active confirmed Problem 99460544 Vitamin D defici ency (E55.9) Active confirmed Problem 585796117 Diverticulitis (K57.92) Active confir med Problem 561349225 Mild intermitten t asthma, uncomplicated (J45.20) Active confirmed Problem 630112922 Other specified menopausal and perimenopausal disorders (N95.8) Active confirmed Problem 692300287 Encounter for sc reening for other protozoal diseases and helminthiases (Z11.6) Active confirmed Problem 983539714 Asymptomatic men opausal state (Z78.0) Active confirmed Problem 22840118 Essential hypert ension (I10) Active confirmed Problem 87665046 Dysthymia (F34.1) Active confirmed Problem 29456310 Sciatica of righ t side (M54.31) Active confirmed Problem 119446970 Pure hypercholesterolemia (E78.00) Active confirmed Problem 897367349 Hypertensive cri sis (I16.9) Active confirmed Problem Computed tomography result abnormal (092178691) Abnormal CAT scan (R93.89) Active confirmed Problem 64592310 Kidney stone on left side (N20.0) Active confirmed Problem Abdominal mass (finding) (815937227) Abdominal mass of other site (R19.09) Active confirmed Problem 199721726 Screening mammog osiris for breast cancer (Z12.31) Active confirmed Problem Urticaria (111381404) Hives of unknown origin (L50.9) Active confirmed Vital Signs Blood pressure diastolic 84 mm Hg 05/14/2025 Height 64 in 05/14/2025 Blood pressure systolic 152 mm Hg 05/14/2025 Weight 246 lbs 05/14/2025 BMI 42.22 kg/m2 05/14/2025 Encounters Encounter Location Date Provider Diagnosis Ilir Hodge MD [address] [place] [id number] 07/06/2024 Ilir Hodge Pure hypercholestero lemia E78.00 and Type 2 diabetes mellitus without complications E11.9 Ilir Hodge MD [address] [place] [address] Drive [address] [place] [id number] 01/08/2025 Ilir Hodge Blood tests for rout ine general physical examination Z00.00 ; Essential hypertension I10 ; Pure hypercholesterolemia E78.00 ; Type 2 diabetes mellitus without complications E11.9 and Vitamin D deficiency E55.9 Ilir Hodge MD [address] [place] [address] Drive [address] [place] [id number] 07/14/2024 Ilir Peñaer Type 2 diabetes piter itus without complications E11.9 ; Cardiac murmur R01.1 and Pure hypercholesterolemia E78.00 Ilir Hodge MD [address] [place] [id number] 08/14/2024 Ilir Penaardier Type 2 diabetes piter itus without complications E11.9 ; Hypertensive crisis I16.9 and Hives of unknown origin L50.9 Ilir Hodge MD [address] [place] [id number] 08/25/2024 Ilir Hodge Type 2 diabetes piter itus without complications E11.9 ; Hives of unknown origin L50.9 and Essential hypertension I10 Ilir Hodge MD [address] [place] [id number] 09/07/2024 Ilir Penaardier Type 2 diabetes piter itus without complications E11.9 and Hives of unknown origin L50.9 Ilir Hodge MD [address] [place] [id number] 11/06/2024 Ilir Hodge Type 2 diabetes piter itus without complications E11.9 and Mild intermittent asthma, uncomplicated J45.20 Ilir Hodge MD [address] [id number] 11/13/2024 Ilir Hodge Bronchitis J40 Ilir Hodge MD [address] [id number] 11/27/2024 Ilir Hodge Persistent cough for 3 weeks or longer R05.3 ; Type 2 diabetes mellitus without complications E11.9 and Essential hypertension I10 Ilir Hodge MD [address] [place] [id number] 12/28/2024 Ilir Hodge Type 2 diabetes piter itus without complications E11.9 and Mild intermittent asthma, uncomplicated J45.20 Ilir Hodge MD [address] [place] [id number] 01/15/2025 Ilir Hodge Annual physical exam Z00.00 ; Abdominal mass of other site R19.09 ; Mild intermittent asthma, uncomplicated J45.20 ; Hives of unknown origin L50.9 ; Essential hypertension I10 ; Depression F32.9 ; Type 2 diabetes mellitus without complications E11.9 and Depression screening Z13.31 Ilir Hodge MD [address] [place] [id number] 02/19/2025 Ilir Hodge Hives of unknown gregg gin L50.9 ; Essential hypertension I10 ; Type 2 diabetes mellitus without complications E11.9 and Persistent cough R05.3 Ilir Hodge MD [address] [place] [id number] 03/22/2025 Ilir Hodge Abnormal CAT scan R9 3.89 and Cough R05.9 Ilir Hodge MD [address] [place] [address] [id number] 05/14/2025 Ilir Hodge Type 2 diabetes piter itus without complications E11.9 and Cough in adult R05.9 Ilir Hodge MD [address] [place] [id number] 03/05/2025 Ilir Hodge Assessments Encounter Date Diagnosis [...] (ICD-10 - L50.9) is going to see review scheduling coordinator in one month. 11/06/2024 Type 2 diabetes [...] diagnostic testing, THE ORDER WAS FAXED TO [facility], 02/19/2025 Hives of unknown origin [...] (ICD-10 - R05.3) have suggested going to [place] 01/08/2025 Type 2 diabetes mellitus without complications [...] need to [facility] re[facility] hospital about her chest ct/ Will [...] 01/05/2023 Next Appt Details Provider Name:Ilir alford, 06/14/2025 07:30:00 AM, [address] [place] [address], Suite [facility], [place], [place], [phone], Provider Name:Ilir alford, 07/19/2025 07:15:00 AM, [address] [place] [address], Suite [facility], [place], [phone], Provider Name:Ilir aflord, 01/11/2026 07:15:00 AM, [address] [place] [address], [place] [address], ERNESTINE León, [phone], Provider Name:Ilir alford, 01/18/2026 09:30:00 AM, [address] [place] [address], [place] [address], ERNESTINE León, [phone], Insurance Providers Payer Name Payer Address Payer Phone Subscriber Number Group Number Insured Name Patient Relationship to Insured Coverage Start Date Coverage End Date [employer] [address] [address] [place] [phone] [id number] RADHA SIFUENTES Self - patient is the insured [employer] [address] [place] [address] [id number] BEAR RADHA Self - patient is the insured Medical (General) History Medical History History ICD Code colonoscopy 2010 due in 5 ye ars; colonoscopy 04/13/[address] Georgina Philippe in 2027
== END 2025-06-13 14:00 | disposition home or self-care (01) ==
LOC: HO.HPSW 12:54
PROVIDERS: PCP Internal Medicine; Visit Provider Nurse Practitioner Family
DX: J84.9 Interstitial pulmonary disease, unspecified (principal); J45.909 Unspecified asthma, uncomplicated; R05.3 Chronic cough; L50.1 Idiopathic urticaria
CPT/HCPCS: 99214; G2211

== ENCOUNTER 2025-06-13 12:54 | Outpatient (REF) | payer MEDICARE, SELFPAY ==
[2025-06-13 18:43] LABS: Hematocrit 44.8 % (37.0-47.0); Hemoglobin 14.1 g/dl (12.0-16.0); Imm Gran Abs Auto 0.11 X10*3/uL (0.00-0.03); Imm Gran Pct Auto 0.9 % (0.0-0.4); Lymphocytes Absolute Auto 3.8 X10*3/uL (1.2-4.9); MANUAL DIFF FLAG SCAN; Mean Corpuscular HGB Conc 31.5 g/dl (31.0-35.0); Mean Corpuscular Hemoglobin 29.0 pg (27.0-33.0); Mean Corpuscular Volume 92.0 fL (80.0-98.0); NRBC Abs Auto 0.000 X10*3/uL (0.0-0.012); NRBC Pct Auto 0.0 /100WBC (0.0-0.2); Red Blood Count 4.87 X10*6/uL (4.20-5.50); SCAN SMEAR FLAG 1; White Blood Count 12.0 X10*3/uL (4.8-10.8)
[2025-06-13 18:51] LABS: Platelet Count 2 X10*3/uL (160-400)
== END 2025-06-13 12:55 | disposition home or self-care (01) ==
LOC: HO.WFDLDS 12:54
PROVIDERS: PCP Internal Medicine; Visit Provider Nurse Practitioner Family
DX: Z13.89 Encounter for screening for other disorder (principal)
CPT/HCPCS: 36415; 85025; 99212

== ENCOUNTER 2025-06-13 22:34 | Emergency (ER) | payer MEDICARE, SELFPAY ==
[2025-06-13 22:53] VITALS: BP 151/79; PULSE 95; RESP 20; TEMP 36.6; O2SAT 95; BMI 45.6
--- NOTE | 2025-06-13 23:17 | ED.RECABL ---
HPI - Recheck/Abnormal Lab/Rx General Chief Complaint: Recheck/Abnormal Lab/Rx Stated Complaint: abnormal labs Time Seen by Provider: 06/13/25 23:16 Source: patient Mode of arrival: ambulatory Limitations: no limitations History of Present Illness ED Provider: Dr. Harsh Beck HPI narrative: 65-year-old female with a history of interstitial lung disease followed by Dr. Peralta, diabetes mellitus, hyperlipidemia, positive VARUN, asthma, degenerative disc disease, thrombocytopenia associated with bleeding 13 years prior attributing to being on Bactrim who presents emergency department for evaluation of a low platelet count. The patient states that she has had a persistent cough since July 2025 and has been on prednisone 40 mg once a day with improvement of her cough. Patient states that 13 years prior she was on Bactrim and developed petechiae with bleeding from her nose and gums. She states that yesterday, she noted petechiae on her neck. Today, she had a follow up appointment with with Dr. Peralta and told him that she had petechiae on her neck and arms.. He ordered a CBC. The patient's platelet count was 2000, Dr. Peralta called the patient and told her to go to the emergency department for re-evaluation. The patient states that she has very high cholesterol and was started on Repatha (evolocumab) shots Q2 weeks and had her 1st shot 2 weeks prior. She is not taking any other new medications. She states that over the last 2 nights she had cold sweats which is unusual for her. She has chronic fatigue but states that yesterday she had severe fatigue. She has also had a 100 lb weight gain since July 2025. She denied fever, rhinorrhea, sore throat, nausea, vomiting, diarrhea, frequency, urgency or dysuria. Related Data Home Medications ?Medication ?Instructions ?Recorded ?Confirmed albuterol sulfate 90 mcg/actuation 2 puff inhalation Q4H PRN 12/05/21 06/13/25 aerosol inhaler Shortness Of Breath amlodipine 5 mg tablet 1 tab PO DAILY 12/05/21 06/13/25 sertraline 100 mg tablet 1 tab PO DAILY 12/05/21 06/13/25 blood sugar diagnostic (Contour 05/27/22 05/21/25 Next Test Strips) blood-glucose meter (Contour Next 05/27/22 05/21/25 Meter) calcium-magnesium 750 mg-465 mg tab PO 02/09/25 06/13/25 tablet cholecalciferol (vitamin D3) 125 125 mcg PO DAILY 02/09/25 06/13/25 mcg (5,000 unit) capsule Previous Rx's ?Medication ?Instructions ?Recorded pen needle, diabetic 32 gauge x #150 ea 12/25/2132 (BD Ultra-Fine Tammy Pen Needle) glucagon 3 mg/actuation nasal 3 mg intranasal ONCE severe 02/24/22 spray (Baqsimi) hypoglycemia 30 days #2 ea lisinopril 20 1 tab PO BID 90 days #180 tabs 02/24/22 mg-hydrochlorothiazide 25 mg tablet rosuvastatin 40 mg tablet 40 mg PO DAILY #90 tabs 02/24/22 acetone (urine) test (Ketostix #100 ea 04/12/24 strips) insulin glargine 100 unit/mL (3 26 unit (0.26 mL) subcut QPM #45 mL 04/19/24 mL) subcutaneous pen (Lantus Solostar U-100 Insulin) blood-glucose sensor (Dexcom G7 #3 ea 10/20/24 Sensor device) budesonide-formoterol HFA 160 2 puff inhalation Q12H #10.2 grams 01/12/25 mcg-4.5 mcg/actuation aerosol inhaler (Symbicort) ezetimibe 10 mg tablet (Zetia) 10 mg PO DAILY 30 days #30 tabs 02/16/25 Humalog KwikPen Insulin 100 10 - 22 unit (0.1 - 0.22 mL) 03/21/25 unit/mL subcutaneous (insulin subcut TID 25 days #15 mL lispro) prednisone 20 mg tablet 40 mg (2 x 20 mg) PO DAILY #60 tabs 05/08/25 Repatha SureClick 140 mg/mL 140 mg subcut Q2W #2 mL 05/21/25 subcutaneous pen injector (evolocumab) insulin lispro 100 unit/mL See Rx Instructions subcut 05/21/25 subcutaneous solution (Humalog .COMPLEX 30 days #50 mL U-100 Insulin) levofloxacin 750 mg tablet 750 mg PO DAILY #7 tabs 06/13/25 prednisone 10 mg tablet 10 mg PO DIRECTED #30 tabs 10/15/25 Allergies Allergy/AdvReac Type Severity Reaction Status Date / Time Penicillins (PENICILLINS) Allergy Severe RASH Verified 06/13/25 22:58 Sulfa (Sulfonamide Allergy Severe THROMBOCYTOPENIA, Verified 06/13/25 22:58 Antibiotics) (SULFA severe (SULFONAMIDE ANTIBIOTICS)) penicillin V Allergy Unknown rash Verified 06/13/25 22:58 Review of Systems Review of Systems: Yes all other systems are reviewed and are negative [facility] Past Medical History Medical History (Updated 06/15/25 @ 00:00 by Mateus Hester) DM2 (diabetes mellitus, type 2) Hives 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 HLD (hyperlipidemia) Hypertension Asthma Nephrolithiasis Diabetes Surgical History History of knee replacement Family History Family History Family/Other No known health problems Social History Social History Household Members: Spouse Housing: House Do you presently have visiting nurse or other home services: No Alcohol intake: current Alcohol intake frequency: a few times a month Alcohol type: beer and wine Patient Tobacco Use Status: Never used Tobacco service: No Current occupational status: disabled Physical Exam Vital Signs: Vital Signs: Last Vital Signs Temp 97.6 F 06/14/25 04:25 Pulse 88 06/14/25 04:25 Resp 20 06/14/25 04:25 BP 161/83 H 06/14/25 04:25 Pulse Ox 95 06/14/25 04:25 O2 Del Method Room Air 06/14/25 04:25 BMI result Body Mass Index 45.6 Vital signs revealed an elevated blood pressure of 151/79 otherwise unremarkable. Exam: General: Awake, alert in no distress Head: Normocephalic, atraumatic EENT: PERRL, sclera and conjunctiva are normal, mouth with no erythema or exudates Neck: Supple, no adenopathy Lung: breath sounds symmetric, no wheezing, no rales and no rhonchi Chest: symmetric movement, nontender Heart: regular rate and rhythm, normal S1, S2 no murmurs or rubs Abdomen: soft, non-tender, nondistended, normal bowel sounds Back: no vertebral tenderness, no CVAT Extremities: no deformities, moves all extremities symmetrically, no edema Skin: Patient has a petechial rash under her chin and in the antecubital fossa of both arms, no other bruising noted Neuro: Awake, alert, oriented, normal speech, cranial nerves 2-12 intact, moves all extremities symmetrically Psych: Pleasant, cooperative Medical Decision Making Medical Decision Making MDM Narrative: 65-year-old female with a history of interstitial lung disease followed by Dr. Peralta, diabetes mellitus, hyperlipidemia, positive VARUN, asthma, degenerative disc disease, thrombocytopenia associated with bleeding 13 years prior attributing to being on Bactrim who presents emergency department for evaluation of a low platelet count. The patient states that she has had a persistent cough since July 2025 and has been on prednisone 40 mg once a day with improvement of her cough. Patient states that 13 years prior she was on Bactrim and developed petechiae with bleeding from her nose and gums. She states that yesterday, she noted petechiae on her neck. Today, she had a follow up appointment with with Dr. Peralta and told him that she had petechiae on her neck and arms.. He ordered a CBC. The patient's platelet count was 2000, Dr. Peralta called the patient and told her to go to the emergency department for re-evaluation. The patient states that she has very high cholesterol and was started on Repatha (evolocumab) shots Q2 weeks and had her 1st shot 2 weeks prior. She is not taking any other new medications. She states that over the last 2 nights she had cold sweats which is unusual for her. She has chronic fatigue but states that yesterday she had severe fatigue. She has also had a 100 lb weight gain since July 2025. She denied fever, rhinorrhea, sore throat, nausea, vomiting, diarrhea, frequency, urgency or dysuria. Vital signs revealed an elevated blood pressure otherwise unremarkable. Patient does have a petechial rash under her chin and on her neck and in the antecubital fossa abuses of both arms. Differential diagnosis: ?Includes but is not limited to ITP, bone marrow disorder, drug-induced thrombocytopenia, thrombocytopenia, viral infection, Course: 00:37 My independent interpretation patient's laboratory evaluation is as follows: WBC elevated 11,200. H&H was normal 14.3 and 43.7. Chloride elevated 110. BUN elevated 35 with a normal creatinine of 1.33. AST elevated 39. 01:48 I did discuss the patient's presentation over tiger connect with our covering production department supervisor, Dr. Martinez. She agreed with transfusion of 1 unit of pheresis platelets. She advised that the patient follow up with her office on Wednesday06/15/2025 for repeat platelet count and further evaluation. Therefore, the patient will be discharged after she completes her platelet transfusion. Differential Diagnosis Differential Diagnoses: The differential diagnosis associated with the presentation includes (See above) Admission/Observation Consideration of admission/observation: Escalation of care including admission/observation considered (Yes) Consult Healthcare Provider Management of the patient was discussed with: Graphic Artist (Route Sales Person, Dr. Martinez) Lab Data MDM Lab Attestation statement: I reviewed the patient's lab results. 06/13/25 23:16 06/13/25 23:16 Labs: Lab Results 06/13/25 Range/Units 23:16 WBC 11.2 H (4.8-10.8) X10*3/uL RBC 4.86 (4.20-5.50) X10*6/uL Hgb 14.3 (12.0-16.0) g/dl Hct 43.7 (37.0-47.0) % MCV 89.9 (80.0-98.0) fL MCH 29.4 (27.0-33.0) pg MCHC 32.7 (31.0-35.0) g/dl RDW 12.9 (11.0-16.0) % Plt Count 24 L D (160-400) X10*3/uL MPV Not Reportable Absolute Nucleated RBC 0.000 (0.0-0.012) X10*3/uL Nucleated RBC % (auto) 0.0 (0.0-0.2) /100WBC Neutrophils % (Manual) 74 H (45-73) % Band Neutrophils % 0 L (3-5) % Lymphocytes % (Manual) 20 (20-40) % Atypical Lymphs % (Man) 1 (0-6) % Monocytes % (Manual) 4 (2-11) % Eosinophils % (Manual) 1 (0-4) % Abs Neuts (Manual) 8.3 (2.0-8.3) X10*3/uL Lymphocytes # (Manual) 2.2 (1.2-4.9) X10*3/uL Atyp Lymphs # (Manual) 0.1 x10*3/uL Monocytes # (Manual) 0.4 (0.1-1.2) X10*3/uL Eosinophils # (Manual) 0.1 (0.0-0.4) X10*3/uL Toxic Vacuolation PRESENT Platelet Estimate DECREASED (NORMAL) Large Platelets PRESENT Giant Platelets PRESENT Plt Morphology Comment NOTED RBC Morphology NOTED Tear Drop Cells 1+ (0-2) /OIF Ovalocytes 1+ (5-14) /OIF Jayy Cells 1+ (0-2) /OIF Sodium 145 (135-145) mmol/L Potassium 4.1 (3.3-5.1) mmol/L Chloride 110 H (96-108) mmol/L Carbon Dioxide 25 (22-29) mmol/L Anion Gap 14 (12-20) BUN 35 H (9-16) mg/dL Creatinine 1.33 (0.5-1.4) mg/dL Estim Creat Clear Calc 51.3 Estimated GFR 40 Random Glucose 70 (60-115) mg/dL Calcium 9.8 (8.4-10.2) mg/dL Total Bilirubin 0.6 (0.0-1.0) mg/dL AST 29 (5-31) U/L ALT 39 H (0-31) U/L Alkaline Phosphatase 84 (39-117) U/L Total Protein 6.7 (6.5-8.0) g/dL Albumin 4.0 (3.5-5.0) g/dL Blood Type O Positive Antibody Screen NEGATIVE Chronic Conditions Patient?s care impacted by: Diabetes and Other (Interstitial lung disease) Critical Care Time Critical Care Time Critical Care Time: Yes Total Critical Care Time: 35 Attestation: Critical Care: The patient was critically ill with a high probability of imminent or life threatening deterioration. I spent greater than 30 minutes of discontinuous time evaluating the patient,delivering critical care at the bedside, discussing and evaluating pertinent data with consultants. Critical care time does not include time spent performing separately billable procedures or teaching. Total time spent performing critical care was 35 minutes. Discharge Plan Discharge Clinical Impression: Thrombocytopenia, Petechial rash Patient Disposition: Home, Self-Care Instructions: Thrombocytopenia (ED) Additional Instructions: A normal platelet count is a 160, 000-460, 000 Your platelet count earlier yesterday was 2000. Repeat platelet count in the emergency department was 24,000 which is significantly higher. You received 1 unit of pheresis platelets here in the emergency department I did discuss your low platelet count with our covering production department supervisor, Dr. Martinez. Please call her office today to make a follow up appointment for Wednesday06/15/2025 to get a repeat platelet count and for further workup of your low platelet count. Continue taking medications as prescribed by your providers. Follow-up with your doctor in 2 days. Please return to the emergency department if your symptoms get worse or if you develop any symptoms that are concerning to you. Prescriptions: No Action (DME) pen needle, diabetic [BD Ultra-Fine Tammy Pen Needle] 32 gauge x 5/32 needle See Rx Instructions .ROUTE .MEDSUPPLY Qty: 150 11RF Rx Instructions: As directed five times a day (DME) Ketostix Strip See Rx Instructions .Route Qty: 100 4RF Rx Instructions: As directed insulin glargine [Lantus Solostar U-100 Insulin] 100 unit/mL (3 mL) insulin pen 26 unit subcut QPM Qty: 45 4RF (DME) Dexcom G7 Sensor Device See Rx Instructions .Route Qty: 3 5RF Rx Instructions: As directed every ten days insulin lispro [Humalog KwikPen Insulin] 100 unit/mL insulin pen 10 - 22 unit SUBCUT TID 25 Days Qty: 15 0RF Rx Instructions: 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 Afterwards turn on side. May repeat after 15 minutes if patient does not respond. lisinopril-hydrochlorothiazide 20-25 mg tablet 1 tab PO BID 90 Days Qty: 180 1RF rosuvastatin 40 mg tablet 40 mg PO DAILY Qty: 90 1RF (DME) blood-glucose meter [Contour Next Meter] Misc See Rx Instructions .Route Rx Instructions: As directed (DME) Contour Next Test Strips Strip See Rx Instructions .Route Rx Instructions: As directed ezetimibe [Zetia] 10 mg tablet 10 mg PO DAILY 30 Days Qty: 30 11RF insulin lispro [Humalog U-100 Insulin] 100 unit/mL solution See Rx Instructions subcut .COMPLEX 30 Days Qty: 50 3RF Rx Instructions: infuse up to 130 units via insulin pump subcutaneously; budesonide-formoterol [Symbicort] 160-4.5 mcg/actuation HFA aerosol inhaler 2 puff inhalation Q12H Qty: 10.2 3RF calcium-magnesium 750-465 mg tablet PO cholecalciferol (vitamin D3) 125 mcg (5,000 unit) capsule 125 mcg PO DAILY prednisone 20 mg tablet 40 mg PO DAILY Qty: 60 1RF levofloxacin 750 mg tablet 750 mg PO DAILY Qty: 7 0RF prednisone 10 mg tablet 10 mg PO DIRECTED Qty: 30 0RF Rx Instructions: see taper instructions 30 mg x 5 days, 20 mg x 5 days, 10 mg x 5 days Interventions: ED Discharge Assessment Last Done: 06/14/25 04:25 Discharge Date/Time: 06/14/25 04:30 Print Language: Sinhala
[2025-06-13 23:27] LABS: Baso%MD 0.2 %; Hemoglobin 14.3 g/dl (12.0-16.0); Lymph%MD 20.1 %; NRBC Abs Auto 0.000 X10*3/uL (0.0-0.012); NRBC Pct Auto 0.0 /100WBC (0.0-0.2)
[2025-06-13 23:29] LABS: Eos%MD 2.9 %; Hematocrit 43.7 % (37.0-47.0); IG%MD 0.9 %; Mean Corpuscular HGB Conc 32.7 g/dl (31.0-35.0); Mean Corpuscular Hemoglobin 29.4 pg (27.0-33.0); Mean Corpuscular Volume 89.9 fL (80.0-98.0); Mono%MD 2.8 %; Neut%MD 73.1 %; Red Blood Count 4.86 X10*6/uL (4.20-5.50); White Blood Count 11.2 X10*3/uL (4.8-10.8)
[2025-06-13 23:44] LABS: PLT ABN DIST 1; Platelet Count 24 X10*3/uL (160-400)
[2025-06-13 23:45] LABS: Alanine Aminotransferase 39 U/L (0-31); Albumin Level 4.0 g/dL (3.5-5.0); Alkaline Phosphatase 84 U/L (39-117); Anion Gap 14 (12-20); Aspartate Amino Transferase 29 U/L (5-31); Blood Urea Nitrogen 35 mg/dL (9-16); Calcium 9.8 mg/dL (8.4-10.2); Carbon Dioxide 25 mmol/L (22-29); Chloride 110 mmol/L (96-108); Creatinine Clr Calc Pharmacy 51.3; Estimated Glomerular Filt Rate 40; Potassium 4.1 mmol/L (3.3-5.1); Sodium 145 mmol/L (135-145); Total Protein 6.7 g/dL (6.5-8.0)
[2025-06-13 23:52] LABS: Atypical Lymph Absolute Manual 0.1 x10*3/uL; Atypical Lymphs Percent Manual 1 % (0-6); Burr Cells 1+ (0-2) /OIF; Eosinophils Absolute Manual 0.1 X10*3/uL (0.0-0.4); Eosinophils Percent Manual 1 % (0-4); Large Platelet PRESENT; Lymphocytes Absolute Manual 2.2 X10*3/uL (1.2-4.9); Lymphocytes Percent Manual 20 % (20-40); Monocytes Absolute Manual 0.4 X10*3/uL (0.1-1.2); Monocytes Percent Manual 4 % (2-11); Neutrophils Percent Manual 74 % (45-73); Ovalocytes 1+ (5-14) /OIF; RBC Morphology NOTED; Tear Drop Cells 1+ (0-2) /OIF; Toxic Vacuolation PRESENT
[2025-06-14 00:13] LABS: Band Neutrophils Percent 0 % (3-5); Neutrophils Absolute Manual 8.3 X10*3/uL (2.0-8.3)
[2025-06-14 01:59] VITALS: BP 150/74; PULSE 76; RESP 15; TEMP 36.6; O2SAT 95
[2025-06-14 02:22] VITALS: BP 164/65; PULSE 72; RESP 15; TEMP 36.4
[2025-06-14 02:38] VITALS: BP 151/72; PULSE 72; RESP 18; TEMP 36.8
[2025-06-14 04:08] VITALS: BP 161/83; PULSE 88; RESP 20; TEMP 36.4
[2025-06-14 04:25] VITALS: BP 161/83; PULSE 88; RESP 20; TEMP 36.4; O2SAT 95
== END 2025-06-14 04:30 | disposition home or self-care (01) ==
PROVIDERS: Emergency Provider Emergency Medicine Emergency Medical Services; PCP Internal Medicine
DX: D69.6 Thrombocytopenia, unspecified (principal); R79.89 Other specified abnormal findings of blood chemistry; R05.9 Cough, unspecified; E11.9 Type 2 diabetes mellitus without complications; Z79.4 Long term (current) use of insulin; Z79.899 Other long term (current) drug therapy
CPT/HCPCS: 36415; 36430; 80053; 85007; 85025; 85027; 86850; 86900; 86901; 99212; 99284; 99285; P9073

== ENCOUNTER → 2025-06-19 16:00 | Outpatient (BNV) | payer MEDICARE, SELFPAY | PROVIDERS: PCP Internal Medicine; Visit Provider Internal Medicine | DX: D69.6 Thrombocytopenia, unspecified (principal); J84.9 Interstitial pulmonary disease, unspecified; Z86.2 Personal history of diseases of the blood and blood-forming organs and certain disorders involving the immune mechanism | CPT/HCPCS: 99204; G2211 ==

== ENCOUNTER 2025-06-25 10:15 | Outpatient (AMB) | payer MEDICARE, SELFPAY ==
--- OUTSIDE RECORDS SUMMARY | 2024-12-28 03:45 | XMS_ITS ---
Author Organization Ilir Hodge MD Address [address] [place] [phone] Care Team Providers Care Immigration Coordinator Name Role Phone Ilir Hodge Primary Care Provider Allergies Allergen (clinical drug ingredient) Drug/Non Drug Allergy documented on EMR Reaction Allergy Type Onset Date Status dulaglutide Trulicity pancreatitis Drug Allergy Ac tive Penicillin G Benzathine hives Drug Allergy Active sulfamethoxazole / trimethoprim Bactrim low platelets Drug Allergy Active REASON FOR VISIT 1 month follow up appt Medications Medication SIG (Take, Route, Frequency, Duration) Notes Start Date End Date Status Cefpodoxime Proxetil 200 MG 1 tablet with food Orally every 12 hrs for 10 days 12/28/2024 Active Aspir-Low 81 MG 1 tablet Orally Once a day for 30 day(s) Active Ibuprofen 800 MG 1 tablet with food o r milk as needed Orally Three times a day 09/01/2019 Not-Taking Clobetasol Propionate 0.05 % 1 application Externally Twice a day for 10 day(s) 03/10/2021 Active Valtrex 1 GM 1 tablet Orally 3 ti mes a day for 7 days 12/17/2020 Not-Taking Lisinopril-hydroCHLOROth iazide 20-12.5 MG take 2 tablet by mouth once daily for 90 days Orally Once a day Active Symbicort 160-4.5 MCG/ACT 2 puffs Inhalation twice a day for 30 days 11/13/2024 Active amLODIPine Besylate 10 MG 1 tablet Orally Once a day 10/24/2019 Active Vitamin D3 50 MCG (2000 UT) 1 capsule Orally Once a day for 30 day(s) 01/01/2022 Not-Taking Paxlovid (300/100) 20 x 150 MG & 10 x 100MG 2 tabs of nirm and 1 tab sukhjinder Orally twice for 5 days 05/15/2022 Not-Taking HumaLOG KwikPen 100 UNIT/ML 60 units Subcutaneous Active Vitamin D3 125 MCG (5000 UT) 1 tablet Orally Once a day 11/05/2017 Active Albuterol Sulfate HFA 108 (90 Base) MCG/ACT 2 puffs as needed Inhalation every 4 hrs for 30 days Active Montelukast Sodium 10 MG 1 tablet Orally Once a day for 30 day(s) 12/28/2024 Active Rosuvastatin Calcium 40 MG 1 tablet Orally Once a day Active Ipratropium-Albuterol 0.5-2.5 (3) MG/3ML 3 mL as needed Inhalation every 6 hrs for 30 days 12/28/2024 Active Sertraline HCl 100MG take 1 tablet by [facility] once daily for 90 days Orally Once a day for 90 days Active Vital Signs Blood pressure systolic 158 mm Hg 12/29/19 25 Blood pressure diastolic 76 mm Hg 025 Height 64 in 12/28/2024 Weight 235 lbs 12/28/2024 BMI 40.33 kg/m2 12/28/2024 Encounters Encounter Location Date Provider Diagnosis Ilir Hodge MD [address] [place] [address] [place] [phone] 12/28/2024 Ilir Hodge Type 2 diabetes mellitus without complications E11.9 and Mild intermittent asthma, uncomplicated J45.20 Assessments Encounter Date Diagnosis (ICD Code) Assessment Notes Treatment Notes Treatment Clinical Notes Section Notes 12/28/2024 Type 2 diabetes mellitus without complications (ICD-10 - E11.9) 12/28/2024 Mild intermittent asthma, uncomplicated (ICD-10 - J45.20) 12/28/2024 Other feels that the cef made her better and it came back after stopping Plan Of Treatment Medication Medication Name Sig Start Date Stop Date Notes Cefpodoxime Proxetil 200 MG 1 tablet wit h food Orally every 12 hrs for 10 days 12/28/2024 HumaLOG KwikPen 100 UNIT/ML 60 units Subcutaneous Montelukast Sodium 10 MG 1 tablet Orally Once a day for 30 day(s) 12/28/2024 Ipratropium-Albuterol 0.5-2. 5 (3) MG/3ML 3 mL as needed Inhalation every 6 hrs for 30 days 12/28/2024 Treatment Notes Assessment Notes Other feels that the cef m brian her better and it came back after stopping Next Appt Details Follow Up: 4 Weeks, Reason: asthma Provider Name:Ilir alford, 06/28/2025 07:45:00 AM, [address] [place] [address], [address], [phone], Provider Name:Ilir alford, 07/19/2025 07:15:00 AM, [address] [place] [address], [address], [phone], Provider Name:Ilir alford, 01/11/2026 07:15:00 AM, [address] [place] [address], [address], [phone], Provider Name:Ilir alford, 01/18/2026 09:30:00 AM, [address] [place] [address], [phone], Progress Notes * SAVANNAH SIFUENTES EDOB: [birth year] (64 yo F)Acc No.[id number]:12/28/2024 Progress Notes Patient: SAVANNAH BRAR Provider: Lizbeth Hodge MD :1960 A ge:64 Y S ex:Female Date:12/28/2024 Address:[address] [place] [address] [id number] Subjective: * Chief Complaints: * 1 month follow up appt * HPI: S ymptom(s): patient is a 64 yo female here for one month follow up visit/ saw pulmoologist and started on prednisone and antibiotics. * ROS: G eneral/Constitutional: Denies C hills. D enies F atigue. D enies F ever. D enies H eadache. E NT: Denies S ore throat. R espiratory: Admits C ough. D enies S hortness of breath at rest. A dmits S hortness of breath with exertion. A dmits S putum production. A dmits W heezing. G astrointestinal: Denies D iarrhea. D enies N ausea. * Medical History: * Surgical History: * Hospitalization/Major Diagno stic Procedure: * Medications: T akingAspir-Low 81 MG Tablet Delayed Release 1 tablet [...] Tablet 1 tablet Orally Once a day Albuterol Sulfate HFA 108 (90 Base) MCG/ACT Aerosol Solution 2 puffs as needed Inhalation every 4 hrs Symbicort 160-4.5 MCG/ACT Aerosol 2 puffs Inhalation twice a day Lisinopril-hydroCHLOROthiazide 20-12.5 MG Tablet take [...] 1 tablet Orally Once a day Taking Albuterol Sulfate HFA 108 (90 Base) MCG/ACT Aerosol Solution 2 puffs as needed Inhalation every 4 hrs Taking Symbicort 160-4.5 MCG/ACT Aerosol 2 puffs Inhalation twice a day Taking Lisinopril-hydroCHLOROthiazide 20-12.5 MG Tablet [...] sukhjinder Orally twice Vitamin D3 50 MCG (1999) Capsule 1 capsule Orally Once a day [...] Orally twice Not-Taking/PRN Vitamin D3 50 MCG (1999 UT) Capsule 1 capsule Orally Once a day Not-Taking/PRN Valtrex 1 GM Tablet 1 tablet Orally 3 times a day Not- Taking/PRN Ibuprofen 800 MG Tablet 1 tablet with food or milk as needed Orally Three times a day Medication List reviewed and reconciled with the patient * Allergies: B actrim: low plateletsPenicillin G Benzathine: hivesTrulicity: pancreatitisyes[Allergies Verified] Objective: * Vitals: H t: 64, Wt: 235, BMI:40.33, BP:158/76, Repeat BP:132/78, Wt-k.6. * Examination: G eneral Examination: GENERAL APPEARANCE: c oughing non stop. HEAD: n ormocephalic. SKIN: g ood turgor. HEART: n o murmurs, regular rate and rhythm. LUNGS: a bnormal with few wheezes. Assessment: * Assessment: 1. T ype 2 diabetes mellitus without complications - E11.9 (Primary) 2 . M ild intermittent asthma, uncomplicated - J45.20 Plan: * Treatment: 2. M ild intermittent asthma, uncomplicated Start Ipratropium-Albuterol Solution, 0.5-2.5 (3) MG/3ML, 3 mL as needed, Inhalation, every 6 hrs, 30 days, 360 ML, Refills 3; S tart Montelukast Sodium Tablet, 10 MG, 1 tablet, Orally, Once a day, 30 day(s), 30. 3. O thers Notes: feels that the cef made her better and it came back after stopping * Procedure Codes: * Follow Up: 4 Weeks (Reason: asthma) * * Sign off status: Completed true * Provider: Lizbeth Hodge MD Date: 0 12/28/2024 Generated for Valentin medina/Alexia/Aries on: 12:19 PM EDT History and Physical Notes * HPI (History of Present Illness) Category Sub-Category Detail Notes Category Not es Symptom(s) patient is a 64 yo female here for one month follow up visit/ saw pulmoologist and started on prednisone and antibiotics Examination Category Sub-Category Detail Notes Category Not es General Examination GENERAL APPEARANCE: coughing non s top HEAD: normocephalic HEART: no murmurs, regular rate and rhythm LUNGS: abnormal with few wh eezes SKIN: good turgor
--- OUTSIDE RECORDS SUMMARY | 2025-01-08 03:30 | XMS_ITS ---
Author Organization Ilir Hodge MD Address [address] [place] [phone] Care Team Providers Care Adjunct Philosophy Faculty Name Role Phone Ilir Hodge Primary Care Provider Results Component Value Reference Range Notes Complete Blood Count Auto Di ff Reviewed date:01/08/2025 12:36:23 PM Interpretation: Performing Lab:[facility], [address] [place] [phone] Notes/Report: White Blood Count 6.5 4.8-10.8 X10*3/uL Red Blood Count 4.81 4.20-5.50 X10*6/uL Hemoglobin 14.1 12.0-16.0 g/dl Hematocrit 43.7 37.0-47.0 % Mean Corpuscular Volume 90.9 80.0-98.0 fL Mean Corpuscular Hemoglobin 29.3 27.0-33.0 pg Mean Corpuscular HGB Conc 32.3 31.0-35.0 g/dl Red Cell Distribution Width 12.7 11.0-16.0 % Platelet Count 319 160-400 X10*3/uL Mean Platelet Volume 10.3 9.4-12.3 fL Neutrophils Percent Auto 61.8 45-73 % Imm Gran Pct Auto 0.3 0.0-0.4 % Lymphocytes Percent Auto 28.2 20-40 % Monocytes Percent Auto 5.7 2-11 % Eosinophils Percent Auto 4.0 0-4 % Basophils Percent Auto 0.0 0-2 % NRBC Pct Auto 0.0 0.0-0.2 /100WBC Neutrophils Absolute Auto 4.0 2.0-8.3 x10*3/u L Imm Gran Abs Auto 0.02 0.00-0.03 X10*3/uL Lymphocytes Absolute Auto 1.8 1.2-4.9 X10*3/u L Monocytes Absolute Auto 0.4 0.1-1.2 X10*3/uL Eosinophils Absolute Auto 0.3 0.0-0.4 X10*3/u L Basophils Absolute Auto 0.0 0.0-0.2 X10*3/uL NRBC Abs Auto 0.000 0.0-0.012 X10*3/uL Comprehensive [place]. Panel Fa st Reviewed date:01/10/2025 07:02:22 PM Interpretation: Performing Lab:[facility], [address] [place] [phone] Notes/Report: Sodium 144 135-145 mmol/L Potassium 4.7 3.3-5.1 mmol/L Chloride 108 96-108 mmol/L Carbon Dioxide 27 22-29 mmol/L Anion Gap 14 12-20 Blood Urea Nitrogen 17 9-16 mg/dL Creatinine 0.81 0.5-1.4 mg/dL Estimated Glomerular Filt Rate > 60 Chronic Kidney Disease: Estimated GFR < 60 mL/min/1.73m2 Severe Kidney Disease: Estimated GFR < 15 mL/min/1.73m2 Glucose Fasting 123 60-99 mg/dL A fasting glucose from 100-125 mg/dl is considered impaired (pre-diabetes). Calcium 9.7 8.4-10.2 mg/dL Bilirubin Total 0.7 0.0-1.0 mg/dL Aspartate Amino Transferase 38 5-31 U/L Alanine Aminotransferase 28 0-31 U/L Total Protein 6.6 6.5-8.0 g/dL Albumin Level 3.9 3.5-5.0 g/dL Alkaline Phosphatase 78 39-117 U/L Lipid Panel Reviewed date:01/08/2025 05:12:45 PM Interpretation: Performing Lab:[facility], [address] [place] [phone] Notes/Report: Triglycerides 96 <150 mg/dL Desirable Triglyceride: less than 150 mg/dL Borderline High Triglyceride 150-199 mg/dL High Triglyceride: 200-499 mg/dL Very High Triglyceride: greater than or equal to 5OO mg/dL Cholesterol 197 <200 mg/dL Desirable Cholesterol: less than 200 mg/dL Borderline High Cholesterol: 200-239 mg/dL High Cholesterol: greater than 239 mg/dL LDL Cholesterol Calculated 122 <100 mg/dL Desirable LDL: less than 100 mg/dL Near Optimal/Above Optimal LDL: 110-129 mg/dL Borderline High LDL: 130-159 mg/dL High LDL: 160-189 mg/dL Very High LDL: greater than or equal to 190 mg/dL HDL Cholesterol 56 >40 mg/dL Desirable HDL: greater than 40 mg/dL Note: This HDL assay may give artificially low results in patients with liver disease. Vitamin D 25-OH Total Reviewed date:01/08/2025 05:13:08 PM Interpretation: Performing Lab:[facility], [address] [place] [phone] Notes/Report: Vitamin D 25-OH Total 20.3 >30 ng/mL Health Based Reference Values* < 20 ng/mL Deficient 20-30 ng/mL Insufficient > 30 ng/mL Sufficient *Lois VIDAL. N Engl J Med. 2007;357:266-280 There is no well-established upper level of normal vitamin D levels. Some laboratories use 50 ng/mL as an upper limit of normal. However, toxicity is patient-dependent and may occur at any level. Careful correlation with the patient's presentation is necessary and, if there is concern for vitamin D toxicity, treatment should be considered irrespective of the serum level. Care must be taken in interpreting Vitamin [...] method such as LC-MS/MS. Microalbumin, Random Reviewed date:01/08/2025 12:34:10 PM Interpretation: Performing Lab:[address] [phone] Notes/Report: Creatinine Urine 177.53 Microalbumin Urine 293.0 Microalbum/Creatinine Ratio Ur 165.0 <30 ug/mg cr Albumin/Creatinine Ratio Reference Ranges: Normal: < 30 ug/mg creatinine Microalbuminuria: 30 - 300 ug/mg creatinine Clinical Albuminuria: > 300 ug/mg creatinine Hemoglobin A1c Reviewed date:01/08/2025 03:03:50 PM Interpretation: Performing Lab:[address] [phone] Notes/Report: Hemoglobin A1c % 7.0 <6.0 % Hemoglobin A1C Reference Range Adults: 4.8 - 6.0 % Non diabetic: < 6.0 % Goal: < 7.0 % Additional Action Suggested: > 8.0 % Note: Hemoglobin A1c results are invalid for patients with abnormal amounts of HbF. Blood transfusions may impact the HbA1c concentration in the patient sample. Estimated Average Glucose 154 eAG = Estimated average glucose which is %A1C expressed as average glucose, using the formula of the R3Q-Zoybuud Average Glucose study (ADAG), Diabetes Care, Vol.31,#8, Mar. 2007 UA ClnCatch+Micro w/rflx Cul t Reviewed date:01/08/2025 12:35:06 PM Interpretation: Performing Lab:[address] [phone] Notes/Report: Urine, Clean Catch Color Urine Yellow Appearance Urine Hazy PH 6.0 5.0-9.0 Glucose Urine UA Negative Negative mg/dL Urine Blood Negative Negative Specific [place] - Urine 1.025 1.005-1.025 Urine Protein 30 (1+) Neg-Trace mg/dL Urine Ketones Negative Negative mg/dL Nitrite Urine Negative Negative Leukocyte Esterase Urine Negative Negative RBC Urine 0-2 0-2 /HPF WBC Urine 0-5 0-5 /HPF Squamous Epithelial Cell Urine 0-2 0-2 /HPF Bacteria Urine 1+ None Seen Hyaline Casts Urine 0-2 0-2 /LPF REASON FOR VISIT FASTING LABS Encounters Encounter Location Date Provider Diagnosis Ilir Hodge MD [address] [place] [phone] 01/08/2025 Ilir Hodge Blood tests for rout ine general physical examination Z00.00 ; Essential hypertension I10 ; Pure hypercholesterolemia E78.00 ; Type 2 diabetes mellitus without complications E11.9 and Vitamin D deficiency E55.9 Assessments Encounter Date Diagnosis (ICD Code) Assessment Notes Treatment Notes Treatment Clinical Notes Section Notes 01/08/2025 Blood tests for rout ine general physical examination (ICD-10 - Z00.00) 01/08/2025 Essential hypertensi on (ICD-10 - I10) 01/08/2025 Pure hypercholesterolemia (ICD-10 - E78.00) 01/08/2025 Type 2 diabetes piter itus without complications (ICD-10 - E11.9) 01/08/2025 Vitamin D deficiency (ICD-10 - E55.9) Plan Of Treatment Next Appt Details Provider Name:Ilir alford, 06/28/2025 07:45:00 AM, [address] [place] [address], [phone], Provider Name:Ilir alford, 07/19/2025 07:15:00 AM, [address] [place] [address], [phone], Provider Name:Ilir alford, 01/11/2026 07:15:00 AM, [address] [place] [address], [phone], Provider Name:Ilir alford, 01/18/2026 09:30:00 AM, [address] [place] [address], [phone], Progress Notes * SAVANNAH SIFUENTES EDOB: (65 yo F)Acc No.[id number]:01/08/2025 Progress Note Patient: SAVANNAH BRAR Provider: Lizbeth Hodge MD :1960 A ge:64 Y S ex:Female Date:01/08/2025 Address:[address] [place], [place] [address]Louise wale [facility] Subjective: * Chief Complaints: * 1 . FASTING LABS. * Medical History: Objective: * Vitals: Assessment: * Assessment: 1. B lood tests for routine general physical examination - Z00.00 (Primary) 2 .?Essential hypertension - I10 3 . P ure hypercholesterolemia - E78.00 ? 4 . T ype 2 diabetes mellitus without complications - E11.9 5 . V itamin D deficiency - E55.9 Plan: * Treatment: 2. E ssential hypertension L AB: Complete Blood Count Auto Diff (Collection Date & Time - 01/08/2025 07:30 AM) L AB: Comprehensive [place]. Panel Fast (Collection Date & Time - 01/08/2025 07:30 AM) L AB: Lipid Panel (Collection Date & Time - 01/08/2025 07:30 AM) L AB: Vitamin D 25-OH Total (Collection Date & Time - 01/08/2025 07:30 AM) L AB: Microalbumin, Random (Collection Date & Time - 01/08/2025 07:30 AM) L AB: Hemoglobin A1c (Collection Date & Time - 01/08/2025 07:30 AM) L AB: UA ClnCatch+Micro w/rflx Cult (Collection Date & Time - 01/08/2025 07:30 AM) 3. P ure hypercholesterolemia L AB: Complete Blood Count Auto Diff (Collection Date & Time - 01/08/2025 07:30 AM) L AB: Comprehensive [place]. Panel Fast (Collection Date & Time - 01/08/2025 07:30 AM) L AB: Lipid Panel (Collection Date & Time - 01/08/2025 07:30 AM) L AB: Vitamin D 25-OH Total (Collection Date & Time - 01/08/2025 07:30 AM) L AB: Microalbumin, Random (Collection Date & Time - 01/08/2025 07:30 AM) L AB: Hemoglobin A1c (Collection Date & Time - 01/08/2025 07:30 AM) L AB: UA ClnCatch+Micro w/rflx Cult (Collection Date & Time - 01/08/2025 07:30 AM) 4. T ype 2 diabetes mellitus without complications L AB: Complete Blood Count Auto Diff (Collection Date & Time - 01/08/2025 07:30 AM) L AB: Comprehensive [place]. Panel Fast (Collection Date & Time - 01/08/2025 07:30 AM) L AB: Lipid Panel (Collection Date & Time - 01/08/2025 07:30 AM) L AB: Vitamin D 25-OH Total (Collection Date & Time - 01/08/2025 07:30 AM) L AB: Microalbumin, Random (Collection Date & Time - 01/08/2025 07:30 AM) L AB: Hemoglobin A1c (Collection Date & Time - 01/08/2025 07:30 AM) L AB: UA ClnCatch+Micro w/rflx Cult (Collection Date & Time - 01/08/2025 07:30 AM) 5. V itamin D deficiency L AB: Complete Blood Count Auto Diff (Collection Date & Time - 01/08/2025 07:30 AM) L AB: Comprehensive [place]. Panel Fast (Collection Date & Time - 01/08/2025 07:30 AM) L AB: Lipid Panel (Collection Date & Time - 01/08/2025 07:30 AM) L AB: Vitamin D 25-OH Total (Collection Date & Time - 01/08/2025 07:30 AM) L AB: Microalbumin, Random (Collection Date & Time - 01/08/2025 07:30 AM) L AB: Hemoglobin A1c (Collection Date & Time - 01/08/2025 07:30 AM) L AB: UA ClnCatch+Micro w/rflx Cult (Collection Date & Time - 01/08/2025 07:30 AM) * Procedure Codes: 3 6415 VENIPUNCT, ROUTINE* * * The named appointment provid er may or may not be the originator of this progress note, and it is not deemed complete until electronically signed by the appointment provider. Sign off status: Pending * Provider: Lizbeth Hodge MD Date: 0 01/08/2025 Generated for Valentin medina/Alexia/Aries on: 1 12:18 PM EDT
--- OUTSIDE RECORDS SUMMARY | 2025-01-15 05:30 | XMS_ITS ---
Author Organization Ilir Hodge MD Address [address] [place] [phone] Care Team Providers Care Reinforcing Metal Worker Name Role Phone Ilir Hodge Primary [...] Sertraline HCl 100MG take 1 tablet by [facility] once daily for 90 [...] Status W/U Status Risk Notes Problem Urticaria (745367001) Hives of unknown origin (L50.9) Active confirmed Problem Abdominal mass (finding) (097564887) Abdominal mass of other site (R19.09) Active confirmed Vital Signs Blood pressure systolic 178 mm Hg 01/16/20 25 Blood pressure diastolic 80 mm Hg 025 Height 64 in 01/15/2025 Weight 236 lbs 01/15/2025 BMI 40.5 kg/m2 01/15/2025 Encounters Encounter Location Date Provider Diagnosis Ilir Hodge MD [address] [place] [address] [address] [place], [place] [phone] 01/15/2025 Ilir oHdge Annual physical exam Z00.00 ; Abdominal mass [...] diagnostic testing, THE ORDER WAS FAXED TO [facility], 01/15/2025 Mild intermittent asthma, uncomplicated [...] Sertraline HCl 100MG take 1 tablet by [facility] once daily for 90 days Orally Once a day Albuterol Sulfate HFA 108 (9 0 Base) MCG/ACT 2 puffs as needed Inhalation every 4 hrs Treatment Notes Assessment Notes Annual physical exam labs reviewed and d iscussed with patient Abdominal mass of other site pending josé antonio gnostic testing, THE ORDER WAS FAXED TO [facility], Mild intermittent asthma, uncomplicated followed by pulmonary Hives of unknown origin waiting for mustapha rgy consultt Essential hypertension stable, will cont inue current regiment Depression stable, will continu e current regiment Type 2 diabetes mellitus wit hout complications stable, will continue current regiment Depression screening negative screen Pending Test Test Name Order Date US [facility] 01/15/2025 Next Appt Details Follow Up: 4 Weeks, Reason: Provider Name:Ilir alford, 06/28/2025 07:45:00 AM, [address] [place] [address], [address], [phone], Provider Name:Ilir alford, 07/19/2025 07:15:00 AM, [address] [place] [address], [place] [address], [place], [place], [phone], Provider Name:Ilir alford, 01/11/2026 07:15:00 AM, [address] [place] [address], [place] [address], [place], [place], [phone], Provider Name:Ilir alford, 01/18/2026 09:30:00 AM, [address] [place] [address], [place] [address], [place], [phone], Progress Notes * SAVANNAH SIFUENTES EDOB: (64 yo F)Acc No.[id number]:01/15/2025 Progress Notes Patient: SAVANNAH BRAR Provider: Lizbeth Hodge MD :1960 A ge:64 Y S ex:Female Date:01/15/2025 Address:[address] [place] [address] [address] [id number] Subjective: * Chief Complaints: * A NNUAL [...] full-time. Pets: none. Travel outside of the [place]: no. * Medications: T akingpredniSONE 10 [...] mg/dL Urine Blood Negative Negative - Specific [place] - Urine 1.025 1.005-1.025 - Urine Protein [...] Cholesterol 56 >40 - mg/dL L ab:Comprehensive [place]. Panel Fast (Order Date - 01/08/2025) (Collection [...] upper quadrant. RECTAL EXAM: d one by table tender. FEMALE GENITOURINARY: d one by table tender. EXTREMITIES: n o clubbing, cyanosis, or edema. [...] diagnostic testing, THE ORDER WAS FAXED TO [facility], ?? 3.?Mild intermittent asthma, uncomplicated? [...] MD Date: 0 01/15/2025 Generated for Valentin medina/Alexia/eTransmitting on: 1 12:19 PM EDT History and Physical Notes [...] mass, no lump RECTAL EXAM: done by table tender FEMALE GENITOURINARY: done by table tender ORAL CAVITY: mucosa moist
--- OUTSIDE RECORDS SUMMARY | 2025-02-19 05:15 | XMS_ITS ---
Author Organization Ilir Hodge MD Address [address] [place] [phone] Care Team Providers Care Union Steward Name Role Phone Ilir Hodge Primary Care Provider [phone] Allergies Allergen (clinical drug ingredient) Drug/Non Drug [...] Location Date Provider Diagnosis Ilir Hodge MD [address] [place] [address] [place] [phone] 02/19/2025 Ilir Hodge Hives of unknown origin [...] (ICD-10 - R05.3) have suggested going to [place] 02/19/2025 Other need to speak to dr reeves at [facility] about her chest ct/ Will call [facility] [...] regiment Persistent cough have suggested going to [place] Other need to speak to dr reeves at [facility] about her chest ct/ Will call [facility] for request Next Appt Details Follow Up: 4 Weeks, Reason: Provider Name:Ilir alford, 06/28/2025 07:45:00 AM, [address] [place] [address], [address] [place] [address], [phone], Provider Name:Ilir alford, 07/19/2025 07:15:00 AM, [address] [place] [address], [address] [place] [address], [phone], Provider Name:Ilir alford, 01/11/2026 07:15:00 AM, [address] [place] [address], [address] [place] [address], [phone], Provider Name:Ilir Forrester ier, 01/18/2026 09:30:00 AM, [address], [address], [place], [place], [phone], Progress Notes * SAVANNAH SIFUENTES EDOB: (64 yo F)Acc No.[id number]:02/19/2025 Progress Notes Patient: SAVANNAH BRAR Provider: Lizbeth Hodge MD :1960 A ge:64 Y S ex:Female Date:02/19/2025 Address:[address] [place] [address] Subjective: * Chief Complaints: * 4 WK [...] ersistent cough Notes: have suggested going to [place] 5. O thers Notes: need to speak to dr reeves at [facility] about her chest ct/ Will call [facility] for request ? * Procedure Codes: * Follow Up: 4 Weeks * * Sign off status: Completed true * Provider: Lizbeth Hodge MD Date: 0 02/19/2025 Generated for Valentin medina/Alexia/Amberitting on: 1 12:18 PM EDT History and Physical Notes * [...]
--- OUTSIDE RECORDS SUMMARY | 2025-03-05 07:24 | XMS_ITS ---
Author Organization Ilir Hodge MD Address [address] [place] [phone] Care Team Providers Care Production Floater Name Role Phone Ilir Hodge Primary Care Provider [phone] Encounters Encounter Location Date Provider Diagnosis Ilir Hodge MD [address] [facility] [place] [phone] 03/05/2025 Ilir Hodge Plan Of Treatment Next Appt Details Provider Name:Ilir alford, 06/28/2025 07:45:00 AM, [address], [address], [place], [place], [phone], Provider Name:Ilir alford, 07/19/2025 07:15:00 AM, [address], [address], [place], [place], [phone], Provider Name:Ilir Forrester ier, 01/11/2026 07:15:00 AM, [address], [address], [place], [phone], Provider Name:Ilir Forrester ier, 01/18/2026 09:30:00 AM, [address] [place] [address], [address], [place], [phone], Progress Notes * SAVANNAH SIFUENTES EDOB: (64 yo F)Acc No.[id number]:03/05/2025 Patient: Janine FLORESITAANNETTE SAVANNAH Watson :1960 A ge:64 Y S ex:Female Address:[address] [place] [address] ERNESTINE Hilario, [address] * true * Date: Generated for Valentin medina/Alexia/eTransmitting on: 1 12:19 PM EDT
--- OUTSIDE RECORDS SUMMARY | 2025-03-22 07:30 | XMS_ITS ---
Author Organization Ilir Hodge MD Address [address] [place] [phone] Care Team Providers Care Desktop Analyst Name Role Phone Ilir Hodge Primary Care Provider [phone] Allergies Allergen (clinical drug ingredient) Drug/Non Drug [...] Risk Notes Problem Computed tomography result abnormal ([id number]) Abnormal CAT scan (R93.89) Active confirmed Vital Signs Blood pressure systolic 132 mm Hg 03/22/20 25 Blood pressure diastolic 86 mm Hg 025 Height 64 in 03/22/2025 Weight 245 lbs 03/22/2025 BMI 42.05 kg/m2 03/22/2025 Encounters Encounter Location Date Provider Diagnosis Ilir Hodge MD [address] [place] [address] [place] [id number] 03/22/2025 Ilir Hodge Abnormal CAT scan R93.89 [...] Up: 2 Months, Reason: Provider Name:Ilir alford, 06/28/2025 07:45:00 AM, [address] [place] [address], [address], [place], [place], [phone], Provider Name:Ilir alford, 07/19/2025 07:15:00 AM, [address] [place] [address], [address], [place], [place], [phone], Provider Name:Ilir alford, 01/11/2026 07:15:00 AM, [address] [place] [address], [address], [place], [place], [phone], Provider Name:Ilir alford, 01/18/2026 09:30:00 AM, [address] [facility], [address], [place], [place], [phone], Progress Notes * SAVANNAH SIFUENTES EDOB: 9 (64 yo F)Acc No.[id number]:03/22/2025 Progress Notes Patient: SAVANNAH BRAR Provider: Lizbeth Hodge MD :1960 A ge:64 Y S ex:Female Date:03/22/2025 Address:[address] [place], [place] [id number] Subjective: * Chief Complaints: * 4 week * HPI: S ymptom(s): patient is a 64 yo female here for 4 weel follow up visit/ still coughing. going to see rehab spec. * ROS: G eneral/Constitutional: Denies C hills. [...] 03/22/2025 Generated for Valentin medina/Alexia/Amberitting on: 1 12:18 PM EDT History and Physical Notes * HPI (History of Present Illness) Category Sub-Category Detail Notes Category Not es Symptom(s) patient is a 64 yo female here for 4 weel follow up visit/ still coughing. going to see rehab spec Examination Category Sub-Category Detail Notes Category Not es General Examination GENERAL APPEARANCE: alert, w ell hydrated, in no distress HEART: regular rate and rhy thm, no murmurs, rubs, gallops LUNGS: clear to auscultatio n bilaterally, good air movement, no wheezes, rales, rhonchi SKIN: good turgor
--- OUTSIDE RECORDS SUMMARY | 2025-05-14 05:00 | XMS_ITS ---
Author Organization Ilir Hodge MD Address [address] [place] [phone] Care Team Providers Care Digital Operations Analyst Name Role Phone Ilir Hodge Primary [...] Location Date Provider Diagnosis Ilir Hodge MD [address] [place] [address] [place] [phone] 05/14/2025 Ilir Hodge Type 2 diabetes mellitus [...] Reason: Provider Name:Ilir alford, 06/28/2025 07:45:00 AM, [address] [place] [address], [address], [phone], Provider Name:Ilir alford, 07/19/2025 07:15:00 AM, [address] [place] [address], [address], [phone], Provider Name:Ilir alford, 01/11/2026 07:15:00 AM, [address] [place] [address], [address], [phone], Provider Name:Ilir alford, 01/18/2026 09:30:00 AM, [address] [place] [address], [address], [phone], Progress Notes * SAVANNAH SIFUENTES EDOB: 9 (64 yo F)Acc No.[id number]:05/14/2025 Progress Notes Patient: SAVANNAH BRAR Provider: Lizbeth Hodge MD :1960 A ge:64 Y S ex:Female Date:05/14/2025 Address:[address] [place] [address] [place] Subjective: * Chief Complaints: * 2 monthPatient [...] 05/14/2025 Generated for Valentin medina/Alexia/Majorsmitting on: 1 12:18 PM EDT History and [...]
--- OUTSIDE RECORDS SUMMARY | 2025-06-14 03:30 | XMS_ITS ---
Author Organization Ilir Hodge MD Address [address] [place] [phone] Care Team Providers Care Glove Machine Operator Name Role Phone Ilir Hodge Primary [...] Status W/U Status Risk Notes Problem Thrombocytopenia ([id number]) Thrombocytopenia (D69.6) Active confirmed Vital Signs Blood pressure systolic 192 mm Hg 06/14/20 25 Blood pressure diastolic 98 mm Hg 025 Height 64 in 06/14/2025 Weight 251 lbs 06/14/2025 BMI 43.08 kg/m2 06/14/2025 weight is up 5 pounds since 05-14-25 Encounters Encounter Location Date Provider Diagnosis Ilir Hodge MD [address] [place] [address] [place] [phone] 06/14/2025 Ilir Hodge Abnormal CAT scan R93.89 [...] hematology tomorrow./ US scan order faxed to [facility] dept 06/14/2025 Type 2 diabetes mellitus [...] to genesis./ US scan order faxed to [facility] dept Type 2 diabetes mellitus without complic ations is doing fairly well even on steroids Cough in adult prednisone no longer helping cough Pending Test Test Name Order Date US ABD 06/14/2025 Next Appt Details Follow Up: 2 Weeks, Reason: Provider Name:Ilir alford, 06/28/2025 07:45:00 AM, [address] [place] [address], [address] [place] [address], [phone], Provider Name:Ilir alford, 07/19/2025 07:15:00 AM, [address] [place] [address], [address], [phone], Provider Name:Ilir alford, 01/11/2026 07:15:00 AM, [address] [place] [address], [address], [phone], Provider Name:Ilir alford, 01/18/2026 09:30:00 AM, [address], [address], [place], [place], [phone], Progress Notes * SAVANNAH SIFUENTES EDOB: 9 (65 yo F)Acc No.[id number]:06/14/2025 Progress Notes Patient: SAVANNAH BRAR Provider: Lizbeth Hodge MD :1960 A ge:65 Y S ex:Female Date:06/14/2025 Address:[address] [place] [address], [id number] Subjective: * Chief Complaints: * 1 MO F/U * HPI: S ymptom(s): patient is a 65 yo female here for one month follow up visit/ platelets dropped to 2000 and had to get a platelet infusion.. [...] hematology tomorrow./ US scan order faxed to [facility] dept 3. T ype 2 diabetes mellitus without complications Notes: is doing fairly well even on steroids 4. C ough in adult Notes: prednisone no longer helping cough * Procedure Codes: * Follow Up: 2 Weeks * * Sign off status: Completed true * Provider: Lizbeth Hodge MD Date: Generated for Valentin medina/Alexia/eTransmitting on: 1 [...]
--- OUTSIDE RECORDS SUMMARY | 2025-06-14 08:39 | XMS_ITS ---
Author Organization Ilir Hodge MD Address [address] [place] [phone] Care Team Providers Care Manufacturing Tech Name Role Phone Ilir Hodge Primary Care Provider [phone] REASON FOR VISIT Chest CT Scan due Encounters Encounter Location Date Provider Diagnosis Ilir Hodge MD [address] [place] [phone] 06/14/2025 Ilir Hodge Interstitial lung disease J84.9 Assessments Encounter Date Diagnosis (ICD Code) Assessment Notes Treatment Notes Treatment Clinical Notes Section Notes 06/14/2025 Interstitial lung disease (ICD-10 - J84.9) CT Chest due Plan Of Treatment Treatment Notes Assessment Notes Interstitial lung disease CT Chest due Pending Test Test Name Order Date CT chest wo con 06/14/2025 Next Appt Details Provider Name:Ilir Frorester ier, 06/28/2025 07:45:00 AM, [address], [address], [place], [place], [phone], Provider Name:Ilir Forrester ier, 07/19/2025 07:15:00 AM, [address], [address], [place], [place], [phone], Provider Name:Ilir Forrester ier, 01/11/2026 07:15:00 AM, [address], [address], [place], [place], [phone], Provider Name:Ilir Forrester ier, 01/18/2026 09:30:00 AM, [address], [address], [place], [place], [phone], Progress Notes * SAVANNAH SIFUENTES EDOB: 9 (65 yo F)Acc No.[id number]:06/14/2025 Patient: SAVANNAH BRAR :1960 A ge:65 Y S ex:Female Address:[address] [place], [place] [address], [address] Subjective: * Chief Complaints: * C hest CT Scan due * Medical History: * Surgical History: * Hospitalization/Major Diagno stic Procedure: * Medications: Objective: * Vitals: * Physical Examination: Assessment: * Assessment: 1. I [facility] lung disease - J84.9 Plan: * Treatment: * Procedure Codes: * true * Date: Generated for Lisai adam/Alexia/eTransmitting on: 12:19 PM EDT
--- OUTSIDE RECORDS SUMMARY | 2025-06-18 10:38 | XMS_ITS ---
Author Organization Ilir Hodge MD Address [address] [place] [phone] Care Team Providers Care Dairy Manager Name Role Phone Ilir Hodge Primary Care Provider REASON FOR VISIT ER Encounters Encounter Location Date Provider Diagnosis Ilir Hodge MD [address] [place] [phone] 06/18/2025 Ilir Hodge Plan Of Treatment Next Appt Details Provider Name:Ilir alford, 06/28/2025 07:45:00 AM, [address] [facility] [address], [place], [place], [phone], Provider Name:Ilir alford, 07/19/2025 07:15:00 AM, [address], [address], [place], [place], [phone], Provider Name:Ilir Forrester ier, 01/11/2026 07:15:00 AM, [address] [facility] [address], [place], [place], [phone], Provider Name:Ilir Forrester ier, 01/18/2026 09:30:00 AM, [address], [address], [place], [place], [phone], Progress Notes * SAVANNAH SIFUENTES EDOB: (65 yo F)Acc No.[id number]:06/18/2025 Patient: SAVANNAH BRAR :1960 A ge:65 Y S ex:Female Address:[address] [place] [address] [place], [address] * true * Date: Generated for Valentin medina/Alexia/eTransmitting on: 1 12:18 PM EDT
[2025-06-25 11:05] VITALS: BP 142/86; PULSE 84; O2SAT 98; BMI 44.5
--- NOTE | 2025-06-25 11:05 | A.OFFVIS_ITS ---
Vital Signs 06/25/25 11:05 Height 5 ft 3 in Weight 251 lb 5.231 oz BMI 44.5 BP 142/86 H Blood Pressure Location Lt brachial Position Sitting Pulse 84 Pulse Source Pulse Oximeter Pulse Oximetry (%) 98 Oxygen Delivery Method Room Air Intake Visit Reasons: bronchitis Allergies Penicillins (PENICILLINS) Allergy (Severe, Verified 06/25/25 11:09) RASH Sulfa (Sulfonamide Antibiotics) (SULFA (SULFONAMIDE ANTIBIOTICS)) Allergy (Severe, Verified 06/25/25 11:09) THROMBOCYTOPENIA, severe penicillin V Allergy (Unknown, Verified 06/25/25 11:09) rash HPI HPI bronchitis: Details: Radha is a pleasant 65 year old female, never smoker, with underlying DMII h/o DKA, HTN and HLD. She has continued with persistent dry hacking cough for the past [address] 11/2024 suggestive of evolving ILD of RLL, initially report read as unremarkable however an addendum made on CT stating subtle areas of peripheral groundglass appearance RIGHT lower lobe. We had previously discussed this finding in addition to elevated VARUN being suggestive of an ILD. Given elevated VARUN patient was referred to Rheumatology and has an upcoming appt in July. She had resolution of cough with short course of prednisone initially however recurred shortly after cessation. She was reluctant to start prednisone at higher doses however agreeable and started on prednisone 40 mg x 5 weeks with 50% improvement in cough although repeat imaging revealed new area of RUL consolidation suggestive of pneumonia. There was resolution of prior RLL ggo. She did note chest tightness/congestion resolved with a course of Levaquin. Since the last visit patient was sent for CBC given new onset petechiae which demonstrated significant thrombocytopenia, requiring a platelet transfusion and has been evaluated by hematology. Today she had been tapering off prednisone however cough has persisted and is increasing as she has been tapering. 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 HLD (hyperlipidemia) Hypertension Asthma Nephrolithiasis Diabetes Surgical History History of knee replacement Family History (Updated 06/19/25 @ 15:40 by Pepper Meeks) Family/Other No known health problems Father Kidney failure Social History (Reviewed 06/25/25 @ 11:08 by Nicole Murguia [facility]) Household Members: Spouse and None Housing: House Do you presently have visiting nurse or other home services: No Alcohol intake: current Alcohol intake frequency: a few times a month Alcohol type: beer and wine Patient Tobacco Use Status: Never used Tobacco service: No Current occupational status: employed Review of Systems Const Denies chills, Denies excessive sweating, Denies fever(s), Denies headache(s) and Denies night sweats Eyes Denies dry eyes, Denies irritation and Denies itchy eyes ENT Reports Normal hearing present, Denies headache(s), Denies nasal congestion, Denies nasal discharge, Denies post nasal drip and Denies sore throat Card Denies chest pain, Denies chest pain at rest, Denies chest pain with activity, Denies claudication, Denies leg edema, Denies orthopnea and Denies paroxysmal nocturnal dyspnea Resp Denies change in phlegm color, Denies chest congestion, Reports cough, Denies hemoptysis, Denies excessive phlegm production, Denies pain on inspiration, Denies pain with cough, Denies stridor and Reports wheezing Musc Denies myalgias Neuro Reports Normal hearing present and Denies headache(s) Endo Denies excessive sweating Wero/Lymph Denies lymphadenopathy Aller/Immun Denies itchy eyes, Denies seasonal rhinorrhea and Reports wheezing Physical Exam Vital Signs: Last Vital Signs Pulse 84 06/25/25 11:05 BP 142/86 H 06/25/25 11:05 Pulse Ox 98 06/25/25 11:05 Oxygen Delivery Method Room Air 06/25/25 11:05 BMI result Body Mass Index 44.5 Const General: cooperative, healthy appearing, comfortable, no acute distress, well developed and alert Nutritional Appearance: obese Orientation/consciousness: patient oriented x3 Limitations: no limitations HEENT Head: Yes normal to inspection, Yes normocephalic and Yes atraumatic Ears: hearing grossly normal bilaterally and external ears normal Eyes General: appearance normal, both eyes and all related structures Eyelids: Yes eyelids normal Sclerae: sclerae normal EOM: EOMs intact bilaterally Neck Neck: Yes normal visual inspection and Yes no lymphadenopathy Lymphatic: no lymphadenopathy noted Chest Chest palpation & inspection: normal inspection of the chest Resp Other: persistent dry cough throughout visit Effort & Inspection: normal respiratory effort, able to speak in complete sentences, no audible wheezes, Actively coughing, no stridor, not tachypneic, no tripod positioning and no use of accessory muscles Auscultation: clear to auscultation bilaterally Cardio Jugular venous distension: no JVD Rate: regular rate Rhythm: regular rhythm Skin Other: warm, dry General skin exam: no rashes or lesions noted Neuro General: patient oriented x3 Cranial nerves: Yes Normal hearing present Cognition (Neuro): normal cognition Gait exam (Neuro): Normal gait present Extrem General: Yes normal to inspection, Yes capillary refill normal, Yes no clubbing, cyanosis or edema and Yes no pedal edema Psych Appearance: grossly normal and well kempt Speech and movement: Normal speech and movement present and Clear speech present Affect: normal affect Attitude: cooperative Thought process: Normal thought process present Thought content: Normal thought content present Insight: Good insight present (Psych) Judgement: Good judgement present (Psych) Assessment & Plan Assessment & Plan (1) Interstitial lung disease: Code(s): J84.9 - Interstitial pulmonary disease, unspecified Category: Medical (2) Asthma: Code(s): J45.909 - Unspecified asthma, uncomplicated Category: Medical (3) Chronic cough: Code(s): R05.3 - Chronic cough Category: Medical (4) Idiopathic urticaria: Code(s): L50.1 - Idiopathic urticaria Category: Medical Plan Radha continues with chronic dry hacking persistent cough since August that had resolved completely with prednisone initially. She was tapering prednisone however cough has increased with lowered doses. Reviewed with Dr. Peralta and will restart higher doses of prednisone which patient was agreeable to. Will send 50 mg QD x 1 month and reassess. Side effects reviewed including hyperglycemia which she has been monitoring. She is aware to call if symptoms do not improve. Discussed importance of keeping appt with Rheumatology scheduled in July. Will consider PFT in the future, unlikely she would be able to complete with symptoms. All questions were answered and patient is in agreement of plan. Will follow up in 4 weeks or sooner if needed. Medications: New prednisone 50 mg PO DAILY 30 tabs 1RF Coding Level of Care Code Est Pt Level 4 (83247) Complex EM visit Add On G2211 Diagnoses Interstitial lung disease J84.9 Asthma J45.909 Chronic cough R05.3 Idiopathic urticaria L50.1
--- NOTE | 2025-06-25 11:05 | A.OFFVIS_ITS ---
Vital Signs 06/25/25 11:05 Height 5 ft 3 in Weight 251 lb 5.231 oz BMI 44.5 BP 142/86 H Blood Pressure Location Lt brachial Position Sitting Pulse 84 Pulse Source Pulse Oximeter Pulse Oximetry (%) 98 Oxygen Delivery Method Room Air Intake Visit Reasons: bronchitis Allergies Penicillins (PENICILLINS) Allergy (Severe, Verified 06/25/25 11:09) RASH Sulfa (Sulfonamide Antibiotics) (SULFA (SULFONAMIDE ANTIBIOTICS)) Allergy (Severe, Verified 06/25/25 11:09) THROMBOCYTOPENIA, severe penicillin V Allergy (Unknown, Verified 06/25/25 11:09) rash [facility] Medical History (Updated 06/20/25 @ 18:28 by Melissa Martinez MD) DM2 (diabetes mellitus, type 2) 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
--- OUTSIDE RECORDS SUMMARY | 2025-06-25 12:20 | XMS_ITS | Patient Health Record ---
Author Organization Ilir Hodge MD Address [address] [place], [place] [id number] Care Team Providers Care Wax Pattern Coater Name Role Phone Ilir Hodge Primary Care [...] Panel Reviewed date:07/06/2024 04:44:07 PM Interpretation: Performing Lab:[facility], [address] [place] [phone] Notes/Report: Bilirubin Total 1.0 0.0-1.0 mg/dL Bilirubin Direct 0.3 0.0-0.5 mg/dL Aspartate Amino Transferase 34 5-31 U/L Alanine Aminotransferase 23 0-31 U/L Total Protein 7.1 6.5-8.0 g/dL Albumin Level 4.0 3.5-5.0 g/dL Alkaline Phosphatase 80 39-117 U/L Glucose Fasting Reviewed date:07/06/2024 04:39:33 PM Interpretation: Performing Lab:[facility], [address] [place] [phone] Notes/Report: Glucose Fasting 103 60-99 mg/dL A fasting glucose from 100-125 mg/dl is considered impaired (pre-diabetes). Lipid Panel with Reflex Reviewed date:07/06/2024 04:43:47 PM Interpretation: Performing Lab:[facility], [address] [place] [phone] Notes/Report: Triglycerides 105 <150 mg/dL Desirable Triglyceride: [...] A1c Reviewed date:07/06/2024 12:27:15 PM Interpretation: Performing Lab:[facility], [address] [place] [phone] Notes/Report: Hemoglobin A1c % 6.7 <6.0 % [...] average glucose, using the formula of the T8M-Jqiszgt Average Glucose study (ADAG), Diabetes Care, Vol.31,#8, Mar. 2007 Complete Blood Count Auto Di ff Reviewed date:01/08/2025 12:36:23 PM Interpretation: Performing Lab:[facility], [address] [place] [phone] Notes/Report: White Blood Count 6.5 4.8-10.8 X10*3/uL [...] NRBC Abs Auto 0.000 0.0-0.012 X10*3/uL Comprehensive [place]. Panel Fa st Reviewed date:01/10/2025 07:02:22 PM Interpretation: Performing Lab:[facility], [address] [place] [phone] Notes/Report: Sodium 144 135-145 mmol/L Potassium 4.7 [...] Panel Reviewed date:01/08/2025 05:12:45 PM Interpretation: Performing Lab:[facility], [address] [place] [phone] Notes/Report: Triglycerides 96 <150 mg/dL Desirable Triglyceride: [...] Total Reviewed date:01/08/2025 05:13:08 PM Interpretation: Performing Lab:[address] [address] Notes/Report: Vitamin D 25-OH Total 20.3 >30 [...] Random Reviewed date:01/08/2025 12:34:10 PM Interpretation: Performing Lab:[facility], [address] [place] [address] Notes/Report: Creatinine Urine 177.53 Microalbumin Urine 293.0 Microalbum/Creatinine Ratio Ur 165.0 <30 ug/mg cr Albumin/Creatinine Ratio Reference Ranges: Normal: < 30 ug/mg creatinine Microalbuminuria: 30 - 300 ug/mg creatinine Clinical Albuminuria: > 300 ug/mg creatinine Hemoglobin A1c Reviewed date:01/08/2025 03:03:50 PM Interpretation: Performing Lab:[facility], [address] [place] [phone] Notes/Report: Hemoglobin A1c % 7.0 <6.0 % [...] average glucose, using the formula of the Q9F-Iqutzyv Average Glucose study (ADAG), Diabetes Care, Vol.31,#8, Mar. 2007 UA ClnCatch+Micro w/rflx Cul t Reviewed date:01/08/2025 12:35:06 PM Interpretation: Performing Lab:[facility], [address] [place] [phone] Notes/Report: Urine, Clean Catch Color Urine Yellow Appearance Urine Hazy PH 6.0 5.0-9.0 Glucose Urine UA Negative Negative mg/dL Urine Blood Negative Negative Specific [place] - Urine 1.025 1.005-1.025 Urine Protein 30 [...] AM Interpretation: Performing Lab: Notes/Report: Value 90 Lipid Panel Reviewed date:07/03/2024 11:07:17 AM Interpretation: Performing Lab:[facility], [address] [place] [phone] Notes/Report: Triglycerides 117 <150 mg/dL Desirable Triglyceride: [...] Thyroxine) Reviewed date:07/03/2024 11:15:23 AM Interpretation: Performing Lab:[facility], [address] [place] [phone] Notes/Report: Free T4 (Free Thyroxine) 1.14 0.71-1.85 ng/dL Thyroid Stimulating Hormone Reviewed date:07/03/2024 11:15:32 AM Interpretation: Performing Lab:[facility], [address] [place] [phone] Notes/Report: Thyroid Stimulating Hormone 1.60 0.32-4.0 uIU/mL TSH 3rd Generation ([facility]) Microalbumin, Random Reviewed date:07/03/2024 11:15:50 AM Interpretation: Performing Lab:[facility], [address] [place] [phone] Notes/Report: Creatinine Urine 155.38 Microalbumin Urine 462.0 Microalbum/Creatinine Ratio Ur 297.3 <30 ug/mg cr Albumin/Creatinine Ratio Reference Ranges: Normal: < 30 ug/mg creatinine Microalbuminuria: 30 - 300 ug/mg creatinine Clinical Albuminuria: > 300 ug/mg creatinine Luis A Garza Reviewed date:07/06/2024 12:26:46 PM Interpretation: Performing Lab:[address] [address] Notes/Report: Luis A Garza See Note Specimen held untested for 24 hours; Call to request Chemistry testing. Complete Blood Count Auto Di ff Reviewed date:08/14/2024 02:07:47 PM Interpretation: Performing Lab:[facility], [address] [place] [phone] Notes/Report: White Blood Count 7.2 4.8-10.8 X10*3/uL [...] Panel Reviewed date:08/14/2024 02:07:32 PM Interpretation: Performing Lab:[address] [address] Notes/Report: Bilirubin Total 0.7 0.0-1.0 mg/dL Bilirubin Direct 0.2 0.0-0.5 mg/dL Aspartate Amino Transferase 27 5-31 U/L Alanine Aminotransferase 25 0-31 U/L Total Protein 7.1 6.5-8.0 g/dL Albumin Level 4.0 3.5-5.0 g/dL Alkaline Phosphatase 110 39-117 U/L Basic Metabolic Panel Reviewed date:08/14/2024 02:07:16 PM Interpretation: Performing Lab:[address] [address] Notes/Report: Sodium 142 135-145 mmol/L Potassium 4.3 [...] Sensitivity Reviewed date:08/14/2024 02:07:24 PM Interpretation: Performing Lab:[facility], [address] [place] [phone] Notes/Report: Troponin-I High Sensitivity 6.1 <3.5-17.0 ng/L The Romo high sensitivity Troponin-I results should be used in conjunction with other diagnostic information such as ECG, clinical observations and information, and patient symptoms to aid in the diagnosis of OR. CT head/brain wo con Reviewed date:08/15/2024 12:24:33 PM Interpretation: Performing Lab: Notes/Report: [address] [address] [address] Scan Report Signed Patient: Radha Sifuentes MR#: [id number] 93 : 1960 Acct:[id number] Age/Sex: 64 / F ADM Date: 08/14/24 Loc: HO.ED Attending Dr: Ordering Physician: Riley Cummings Date of Service: 08/14/24 Procedure(s): CT head/brain wo IV con Accession Number(s): [id number] cc: Riley Cummings; Ilir Hodge MD EXAMINATION: [...] by: Carlos Huitron MD 08/14/2024 05:48 PM [facility] Dictated By: Carlos Huitron MD Signed By: <Electronically signed by Carlos Huitron MD in OV> 08/14/24 1748 DD/ 1516 TD/TT: 08/14/24 1617 Security Screener: [place] [address] [address] Scan Report Signed Patient: Sandra Sifuentes MR#: [id number] 93 : 1960 Acct:[id number] Age/Sex: 64 / F ADM Date: 08/14/24 Loc: HO.ED Attending Dr: Ordering Physician: Riley Cummings Date of Service: 08/14/24 Procedure(s): CT head/brain wo IV con Accession Number(s): [id number] cc: Riley Cummings; Ilir Hodge MD EXAMINATION: [...] by: Carlos Huitron MD 08/14/2024 05:48 PM [facility] Dictated By: Carlos Huitron MD Signed By: <Electronically signed by Carlos Huitron MD in OV> 08/14/24 1748 DD/ 1516 TD/TT: 08/14/24 1617 Security Screener: HEATH Troponin-I High Sensitivity Reviewed date:08/14/2024 04:57:01 PM Interpretation: Performing Lab:[facility], [address] [place] [phone] Notes/Report: Troponin-I High Sensitivity 8.8 <3.5-17.0 ng/L The Romo high sensitivity Troponin-I results should be used in conjunction with other diagnostic information such as ECG, clinical observations and information, and patient symptoms to aid in the diagnosis of OR. Glucose, Whole Blood Reviewed date:09/11/2024 12:40:04 PM Interpretation: Performing Lab:[facility], [address] [place] [phone] Notes/Report: Glucose, Whole Blood 139 60-115 mg/dL METER #: [id number] Testing performed in the [facility]. MM tomosynthesis screening B I Reviewed date:09/28/2024 04:55:24 PM Interpretation: Performing Lab: Notes/Report: [facility] [address] [place] [address] Mammography Report Signed Patient: Radha Sifuentes MR#: [id number] 93 : 1960 Acct:[id number] Age/Sex: 64 / F ADM Date: 09/20/24 Loc: MAMMO Attending Dr: Ilir Hodge MD Ordering Physician: Ilir Hodge MD Results: 2Be nign Findings Date of Service: 09/20/24 Follow Up: 1 Year From Orig ina Mammogram Procedure(s): MM tomosynthesis screening BI Accession Number(s): [id number] cc: Ilir Hodge MD EXAMINATION: MM SCREENING [...] by: Kateryna Quevedo DO 09/28/2024 02:51 PM [facility] Dictated By: Kateryna Quevedo DO Signed By: <Electronically signed by Kateryna Quevedo DO in OV> 09/28/24 1451 DD/ 1045 TD/TT: 09/20/24 1108 Security Screener: [facility] [address] [place] [address] [place] [address] Mammography Report Signed Patient: Sandra Sifuentes MR#: [id number] 93 : 1960 Acct:[id number] Age/Sex: 64 / F ADM Date: 09/20/24 Loc: MAMMO Attending Dr: Ilir Hodge MD Ordering Physician: Ilir Hodge MD Results: 2Be nign Findings Date of Service: 09/20/24 Follow Up: 1 Year From Orig inal Mammogram Procedure(s): MM tomosynthesis screening BI Accession Number(s): [id number] cc: Ilir Hodge MD EXAMINATION: MM SCREENING [...] by: Kateryna Quevedo DO 09/28/2024 02:51 PM [facility] Dictated By: Kateryna Quevedo DO Signed By: <Electronically signed by Kateryna Quevedo DO in OV> 09/28/24 1451 DD/ 1045 TD/TT: 09/20/24 1108 Security Screener: RANDELL chest 2V Reviewed date:11/06/2024 05:58:04 PM Interpretation: Performing Lab: Notes/Report: [address] [address] XRay Report Signed Patient: Radha Sifuentes MR#: [id number] 93 : 1960 Acct:[id number] Age/Sex: 64 / F ADM Date: 11/06/24 Loc: MERON Attending Dr: Ilir Hodge MD Ordering Physician: Ilir Hodge MD Date of Service: 11/06/24 Procedure(s): XR chest 2V Accession Number(s): [id number] cc: Ilir Hodge MD EXAMINATION: XR CHEST [...] 11/06/24 1557 DD/ 0930 TD/TT: 11/06/24 0938 Security Screener: [place] [address] XRay Report Signed Patient: Sandra Sifuentes MR#: [id number] 93 : 1960 Acct:[id number] Age/Sex: 64 / F ADM Date: 11/06/24 Loc: MERON Attending Dr: Ilir Hodge MD Ordering Physician: Ilir Hodge MD Date of Service: 11/06/24 Procedure(s): XR marjan st 2V Accession Number(s): [id number] cc: Ilir Hodge MD EXAMINATION: XR CHES [...] Parra MD in OV> 11/06/24 1557 DD/ 09 TD/TT: 11/06/24 09 Security Screener: Glucose, Whole Blood Reviewed date:11/16/2024 12:16:53 PM Interpretation: Performing Lab:[facility], [address] [place] [address] Notes/Report: Glucose, Whole Blood 53 60-115 mg/dL METER #: [id number] Testing performed in the [facility] , [address], [place]. Glucose, Whole Blood Reviewed date:11/16/2024 12:16:39 PM Interpretation: Performing Lab:[facility], [address] [place] [phone] Notes/Report: Glucose, Whole Blood 93 60-115 mg/dL METER #: [id number] Testing performed in the [facility], [place]. Glucose, Whole Blood Reviewed date:02/16/2025 12:07:13 PM Interpretation: Performing Lab:[facility], [address] [place] [address] Notes/Report: Glucose, Whole Blood 175 60-115 mg/dL METER #: [id number] Testing performed in the [facility] , [place] [address], [place]. Cyclic Citrullinated Peptide Reviewed date:02/27/2025 12:41:48 PM Interpretation: Performing Lab:[facility], [address] [place] [address] Notes/Report: Cyclic Citrullinated Peptide <16 Reference Range Negative: <20 Weak Positive: 20-39 Moderate Positive: 40-59 Strong Positive: >59 THIS TEST WAS PERFORMED AT: [facility] [address] [place] [phone] KIERSTEN DIAZ MD VARUN Reflex Titer and Pattern Reviewed date:02/27/2025 12:42:08 PM Interpretation: Performing Lab:[facility], [address] [place] [phone] Notes/Report: Anti Nuclear Antibody Screen POSITIVE NEGATIVE VARUN IFA is a first line screen for detecting the presence of up to approximately 150 autoantibodies in various autoimmune diseases. A positive VARUN IFA result is suggestive of autoimmune disease and reflexes to titer and pattern. Further laboratory testing may be considered if clinically indicated. For additional information, please refer to http://education.Vennli/faq/ QAD463 (This link is being provided for informational/ [...] [employer] Consensus on VARUN Patterns (https://doi.org/10.1 515/qjrk-1767-3325) THIS TEST WAS PERFORMED AT: [facility] [address] [place] [phone] KIERSTEN DIAZ MD VARUN Titer 2 TNP VARUN Pattern 2 TNP VARUN Titer 3 TNP VARUN Pattern 3 TNP Sjogren's Antibodies Reviewed date:02/28/2025 06:24:17 PM Interpretation: Performing Lab:[address] [address] Notes/Report: Antibody to SS-A Antigen <1.0 NEG <1.0 NEG AI Antibody to SS-B Antigen <1.0 NEG <1.0 NEG AI THIS TEST WAS PERFORMED AT: [facility] [address] [place] [address] KIERSTEN DIAZ MD Scleroderma 70 Antibody Reviewed date:02/28/2025 06:22:56 PM Interpretation: Performing Lab:[address] [address] Notes/Report: Scleroderma 70 Antibody <1.0 NEG <1.0 NEG AI THIS TEST WAS PERFORMED AT: [facility] [address] [place] [phone] KIERSTEN DIAZ MD Anti DNA DS Antibody Reviewed date:02/28/2025 06:24:31 PM Interpretation: Performing Lab:[address] [place] [address] Notes/Report: Anti DNA DS Antibody <1 IU/mL Interpretation < or = 4 Negative 5-9 Indeterminate > or = 10 Positive THIS TEST WAS PERFORMED AT: [facility] [address] [address] KIERSTEN DIAZ MD Rheumatoid Factor Reviewed date:02/20/2025 08:53:03 AM Interpretation: Performing Lab:[address] [address] Notes/Report: Rheumatoid Factor < 13.0 <15.0 IU/mL Hypersensitive Pneumonitis P rf Reviewed date:02/28/2025 06:24:39 PM Interpretation: Performing Lab:[address] [address] Notes/Report: Asperg fumigatus Precip Abs NEGATIVE NEGATIVE Micropoly faeni Abs NEGATIVE NEGATIVE [place] serum Abs NEGATIVE NEGATIVE Thermo candidus Abs NEGATIVE NEGATIVE Thermoa vulgaris #1 NEGATIVE NEGATIVE Saccharo pora viridis Abs NEGATIVE NEGATIVE This test was developed and its analytical performance characteristics have been determined by [facility]. It has not been cleared or approved by the FDA. This assay has been validated pursuant to the CLIA regulations and is used for clinical purposes. THIS TEST WAS PERFORMED AT: [facility] [address] [place] [address] ROLAN GAY MD,PHD,DAE US abdomen complete Reviewed date:02/27/2025 12:05:42 PM Interpretation: Performing Lab: Notes/Report: [facility] [place] [address] Ultrasound Report Signed Patient: Radha Sifuentes MR#: [id number] 93 : 1960 Acct:[id number] Age/Sex: 64 / F ADM Date: 02/26/25 Loc: .HMGCX Attending Dr: Ilir Hodge MD Ordering Physician: Ilir Hodge MD Date of Service: 02/26/25 Procedure(s): US abdomen complete Accession Number(s): [id number] cc: Ilir Hodge MD CLINICAL HISTORY: ABD [...] 02/27/25 1133 DD/ 1132 TD/TT: 02/27/25 1132 Security Screener: [facility] [address] [place] [address] [place] [address] Ultrasound Report Signed Patient: Sandra Sifuentes MR#: [id number] 93 : 1960 Acct:[id number] Age/Sex: 64 / F ADM Date: 02/26/25 [facility]: Ilir Hodge MD Ordering Physician: Ilir Hodge MD Date of Service: 02/26/25 Procedure(s): US abdomen complete Accession Number(s): [id number] cc: Ilir Hodge MD CLINICAL HISTORY: AB [...] 02/27/25 1133 DD/ 1132 TD/TT: 02/27/25 1132 Security Screener: Glucose, Whole Blood Reviewed date:05/21/2025 10:53:55 AM Interpretation: Performing Lab:[facility], [address] [place] [address] Notes/Report: Glucose, Whole Blood 235 60-115 mg/dL METER #: [id number] Testing performed in the [facility] , [address], [facility]. Complete Blood Count Auto Di ff Reviewed date:06/14/2025 07:36:11 AM Interpretation: Performing Lab:[facility], [address] [place] [address] Notes/Report: White Blood Count 12.0 4.8-10.8 X10*3/uL Red Blood Count 4.87 4.20-5.50 X10*6/uL Hemoglobin 14.1 12.0-16.0 g/dl Hematocrit 44.8 37.0-47.0 % Mean Corpuscular Volume 92.0 80.0-98.0 fL Mean Corpuscular Hemoglobin 29.0 27.0-33.0 pg Mean Corpuscular HGB Conc 31.5 31.0-35.0 g/dl Red Cell Distribution Width 12.8 11.0-16.0 % Platelet Count 2 160-400 X10*3/uL Critical PLT called to and read back by GRACIELA Critical PLT called to and read back by GRACIELA on 06/13/25 at 1850 by IVANNA. on 06/13/25 at 1850 by IVANNA. Neutrophils Percent Auto 58.1 45-73 % Imm Gran Pct Auto 0.9 0.0-0.4 % Lymphocytes Percent Auto 31.5 20-40 % Monocytes Percent Auto 6.3 2-11 % Eosinophils Percent Auto 3.0 0-4 % Basophils Percent Auto 0.2 0-2 % NRBC Pct Auto 0.0 0.0-0.2 /100WBC Neutrophils Absolute Auto 7.0 2.0-8.3 x10*3/uL Imm Gran Abs Auto 0.11 0.00-0.03 X10*3/uL Lymphocytes Absolute Auto 3.8 1.2-4.9 X10*3/uL Monocytes Absolute Auto 0.8 0.1-1.2 X10*3/uL Eosinophils Absolute Auto 0.4 0.0-0.4 X10*3/uL Basophils Absolute Auto 0.0 0.0-0.2 X10*3/uL NRBC Abs Auto 0.000 0.0-0.012 X10*3/uL White Blood Count 12.0 4.8-10.8 X10*3/uL Red Blood Count 4.87 4.20-5.50 X10*6/uL Hemoglobin 14.1 12.0-16.0 g/dl Hematocrit 44.8 37.0-47.0 % Mean Corpuscular Volume 92.0 80.0-98.0 fL Mean Corpuscular Hemoglobin 29.0 27.0-33.0 pg Mean Corpuscular HGB Conc 31.5 31.0-35.0 g/dl Red Cell Distribution Width 12.8 11.0-16.0 % Platelet Count 2 160-400 X10*3/uL Critical PLT called to and read back by GRACIELA Critical PLT called to and read back by GRACIELA on 06/13/25 at 1850 by IVANNA. on 06/13/25 at 1850 by IVANNA. Neutrophils Percent Auto 58.1 45-73 % Imm Gran Pct Auto 0.9 0.0-0.4 % Lymphocytes Percent Auto 31.5 20-40 % Monocytes Percent Auto 6.3 2-11 % Eosinophils Percent Auto 3.0 0-4 % Basophils Percent Auto 0.2 0-2 % NRBC Pct Auto 0.0 0.0-0.2 /100WBC Neutrophils Absolute Auto 7.0 2.0-8.3 x10*3/uL Imm Gran Abs Auto 0.11 0.00-0.03 X10*3/uL Lymphocytes Absolute Auto 3.8 1.2-4.9 X10*3/uL Monocytes Absolute Auto 0.8 0.1-1.2 X10*3/uL Eosinophils Absolute Auto 0.4 0.0-0.4 X10*3/uL Basophils Absolute Auto 0.0 0.0-0.2 X10*3/uL NRBC Abs Auto 0.000 0.0-0.012 X10*3/uL C ORRECTED REPORT C ORRECTED REPORT Complete Blood Count Man Dif Reviewed date:06/14/2025 07:36:23 AM Interpretation: Performing Lab:[facility], [address] [place] [phone] Notes/Report: White Blood Count 11.2 4.8-10.8 X10*3/uL Red Blood Count 4.86 4.20-5.50 X10*6/uL Hemoglobin 14.3 12.0-16.0 g/dl Hematocrit 43.7 37.0-47.0 % Mean Corpuscular Volume 89.9 80.0-98.0 fL Mean Corpuscular Hemoglobin 29.4 27.0-33.0 pg Mean Corpuscular HGB Conc 32.7 31.0-35.0 g/dl Red Cell Distribution Width 12.9 11.0-16.0 % Platelet Count 24 160-400 X10*3/uL NRBC Pct Auto 0.0 0.0-0.2 /100WBC NRBC Abs Auto 0.000 0.0-0.012 X10*3/uL Neutrophils Percent Manual 74 45-73 % Band Neutrophils Percent 0 3-5 % Lymphocytes Percent Manual 20 20-40 % Atypical Lymphs Percent Manual 1 0-6 % Monocytes Percent Manual 4 2-11 % Eosinophils Percent Manual 1 0-4 % Neutrophils Absolute Manual 8.3 2.0-8.3 X10*3/uL Lymphocytes Absolute Manual 2.2 1.2-4.9 X10*3/uL Atypical Lymph Absolute Manual 0.1 Monocytes Absolute Manual 0.4 0.1-1.2 X10*3/uL Eosinophils Absolute Manual 0.1 0.0-0.4 X10*3/uL Platelet Estimate DECREASED NORMAL Large Platelet PRESENT Giant Platelet PRESENT Platelet Morphology Comment NOTED RBC Morphology NOTED Tear Drop Cells 1+ (0-2) Ovalocytes 1+ (5-14) Toxic Vacuolation PRESENT [place] Cells 1+ (0-2) Comprehensive Met. Panel Reviewed date:06/14/2025 07:36:41 AM Interpretation: Performing Lab:[facility], [address] [place] [address] Notes/Report: Sodium 145 135-145 mmol/L Potassium 4.1 3.3-5.1 mmol/L Slight Hemolysis.Interpret result with caution. Chloride 110 96-108 mmol/L Carbon Dioxide 25 22-29 mmol/L Anion Gap 14 12-20 Blood Urea Nitrogen 35 9-16 mg/dL Creatinine 1.33 0.5-1.4 mg/dL Creatinine Clr Calc Pharmacy 51.3 Provided height and weight: 160.02 cm, 116.8 kg. eGFR (calculated from the MDRD study equation) and eCrCl (calculated from the Cockcroft-Gault equation) are based on different parameters and may not yield comparable results. If eCrCl result is absurd, please check patient's height/weight. Estimated Glomerular Filt Rate 40 Chronic Kidney Disease: Estimated GFR < 60 mL/min/1.73m2 Severe Kidney Disease: Estimated GFR < 15 mL/min/1.73m2 Glucose Random 70 60-115 mg/dL Calcium 9.8 8.4-10.2 mg/dL Bilirubin Total 0.6 0.0-1.0 mg/dL Aspartate Amino Transferase 29 5-31 U/L Slight Hemolysis.Interpret result with caution. Alanine Aminotransferase 39 0-31 U/L Total Protein 6.7 6.5-8.0 g/dL Albumin Level 4.0 3.5-5.0 g/dL Alkaline Phosphatase 84 39-117 U/L SLIDE REVIEW Reviewed date:06/14/2025 07:36:49 AM Interpretation: Performing Lab:[facility], [address] [place] [address] Notes/Report: SLIDE REVIEW VERIFIED Type and Screen Reviewed date:06/14/2025 07:36:57 AM Interpretation: Performing Lab:[facility], [address] [place] [address] Notes/Report: mL/HR Rate to transfuse BBK Product 100 Results at Issue Units as of 06/14/253 ... Test View Group: Most Recent Platelet Count LABORATORY Date Time Test Result Flag Normal Range 06/13/256 PLT 24 # L 160-400 X10*3/uL Plt <10,000 No Blood Type OP Antibody Screen NEGATIVE Pheresis Platelets Reviewed date:06/14/2025 07:37:07 AM Interpretation: Performing Lab:[facility], [address] [place] [address] Notes/Report: Pheresis Platelets [id number] OP PHPLT Pheresis Platelets TRANSFUSED 06/14/25211 Complete Blood Count Auto Di ff Reviewed date:06/15/2025 12:31:04 PM Interpretation: Performing Lab:[facility], [address] [place] [phone] Notes/Report: White Blood Count 11.1 4.8-10.8 X10*3/uL CBC w as verified by repeat analysis. Red Blood Count 4.63 4.20-5.50 X10*6/uL Hemoglobin 13.6 12.0-16.0 g/dl Hematocrit 42.1 37.0-47.0 % Mean Corpuscular Volume 90.9 80.0-98.0 fL Mean Corpuscular Hemoglobin 29.4 27.0-33.0 pg Mean Corpuscular HGB Conc 32.3 31.0-35.0 g/dl Red Cell Distribution Width 13.0 11.0-16.0 % Platelet Count 105 160-400 X10*3/uL Mean Platelet Volume 11.8 9.4-12.3 fL Neutrophils Percent Auto 72.2 45-73 % Imm Gran Pct Auto 1.2 0.0-0.4 % Lymphocytes Percent Auto 22.4 20-40 % Monocytes Percent Auto 3.3 2-11 % Eosinophils Percent Auto 0.7 0-4 % Basophils Percent Auto 0.2 0-2 % NRBC Pct Auto 0.0 0.0-0.2 /100WBC Neutrophils Absolute Auto 8.0 2.0-8.3 x10*3/uL Imm Gran Abs Auto 0.13 0.00-0.03 X10*3/uL Lymphocytes Absolute Auto 2.5 1.2-4.9 X10*3/uL Monocytes Absolute Auto 0.4 0.1-1.2 X10*3/uL Eosinophils Absolute Auto 0.1 0.0-0.4 X10*3/uL Basophils Absolute Auto 0.0 0.0-0.2 X10*3/uL NRBC Abs Auto 0.000 0.0-0.012 X10*3/uL Lactate Dehydrogenase Reviewed date:06/15/2025 12:30:39 PM Interpretation: Performing Lab:[facility], [address] [place] [phone] Notes/Report: Lactate Dehydrogenase 320 122-220 U/L Reason For Referral Reason Hives of unknow orig in Diagnosis 1 Hives of unknown gregg gin (L50.9) Referral Organization Ilir Hodge MD Referring Provider First Name Ilir Referring Provider Last Name Ayesha Referring Provider Speciality Internal edicine Referred Provider COREY CHAND Referred Provider Specialty Allergy/Immu nology General Notes Penny Saenz 11:58:48 AM EST > info faxed to the [facility] office p [phone] f [phone] they will call patient with an apptLetty [...] 03:03:49 PM > appt is in the [place] office, patient is aware of appointment Referral Priority Routine Referral Appointment Date 12/13/2024 Medications Medication SIG (Take, Route, Frequency, Duration) Notes Start Date End Date Status Aspir-Low 81 MG 1 tablet Orally Once a day for 30 day(s) Active Clobetasol Propionate 0.05 % 1 application Externally Twice a day for 10 day(s) 03/10/2021 Active Vitamin D3 125 MCG (5000 UT) 1 tablet Orally Once a day 11/05/2017 Active Hydrocod Juan Carlos-Chlorphe Juan Carlos ER 10-8 MG/5ML 5 mL as needed Orally every 12 hrs for 20 days Partial Fill upon Patient Request 05/14/2025 Active HumaLOG KwikPen 100 UNIT/ML 60 units Subcutaneous Active predniSONE 20 MG 2 tabsQD x 2 months Orally Once a day Active Ipratropium-Albutero l 0.5-2.5 (3) MG/3ML 3 [...] as needed Inhalation every 4 hrs Active Valtrex 1 GM 1 tablet Orally 3 times a day for 7 days 12/17/2020 Not-Taking Symbicort 160-4.5 MCG/ACT 2 puffs Inhalation twice a day 11/13/2024 Active Ibuprofen 800 MG 1 tablet with food or milk as needed Orally Three times a day 09/01/2019 Not-Taking Immunizations Vaccine Route Administration Date Status Commjignesh nts Fluarix Quadrivalent IM Intramuscular 05/28/2014 Administe [...] Problem Status W/U Status Risk Notes Problem 389250291 Type 2 diabetes mellitus without complications (E11.9) Active confirmed Problem Thrombocytopenia (051525201) Thrombocytopenia (D69.6) Active confirmed Problem 93548371 Lymphocytosis (D72.820) Active confirmed Problem 80510708 Depression (F32.9) Active confirmed Problem 74548652 Vitamin D defici ency (E55.9) Active confirmed Problem 827358871 Diverticulitis (K57.92) Active confirmed Problem 855761310 Mild intermitten t asthma, uncomplicated (J45.20) Active confirmed Problem 039625109 Other specified menopausal and perimenopausal disorders (N95.8) Active confirmed Problem 884000383 Encounter for screening for other protozoal diseases and helminthiases (Z11.6) Active confirmed Problem 278625865 Asymptomatic menopausal state (Z78.0) Active confirmed Problem 09295021 Essential hypert ension (I10) Active confirmed Problem Interstitial lung disease (782011256) Interstitial lung disease (J84.9) Active confirmed Problem 11526764 Dysthymia (F34.1) Active confirmed Problem 25295741 Sciatica of righ t side (M54.31) Active confirmed Problem 036347866 Pure hypercholesterolemia (E78.00) Active confirmed Problem 217796955 Hypertensive cri sis (I16.9) Active confirmed Problem Computed tomography result abnormal (983805360) Abnormal CAT scan (R93.89) Active confirmed Problem 56869014 Kidney stone on left side (N20.0) Active confirmed Problem Abdominal mass (finding) (558273246) Abdominal mass of other site (R19.09) Active confirmed Problem 797295669 Screening mammog osiris for breast cancer (Z12.31) Active confirmed Problem Urticaria (031959626) Hives of unknown origin (L50.9) Active confirmed Vital Signs Blood pressure diastolic 98 mm Hg 06/14/2025 timothy ght is up 5 pounds since 05-14-25 Height 64 in 06/14/2025 weight is up 5 pounds since 05-14-25 Blood pressure systolic 192 mm Hg 06/14/2025 weig ht is up 5 pounds since 05-14-25 Weight 251 lbs 06/14/2025 weight is up 5 pounds since 05-14-25 BMI 43.08 kg/m2 06/14/2025 weight is up 5 pounds since 05-14-25 Encounters Encounter Location Date Provider Diagnosis Ilir Hodge MD [address] [place], [place] [id number] 07/06/2024 Ilir Bombardier Pure hypercholestero lemia E78.00 and Type 2 diabetes mellitus without complications E11.9 Ilir Hodge MD [address] [place] [id number] 01/08/2025 Ilir Hodge Blood tests for rout ine general physical examination Z00.00 ; Essential hypertension I10 ; Pure hypercholesterolemia E78.00 ; Type 2 diabetes mellitus without complications E11.9 and Vitamin D deficiency E55.9 Ilir Hodge MD [address] [place] [id number] 07/14/2024 Ilir Hodge Type 2 diabetes piter itus without complications E11.9 ; Cardiac murmur R01.1 and Pure hypercholesterolemia E78.00 Ilir Hodge MD [address] [place] [id number] 08/14/2024 Ilir Hodge Type 2 diabetes piter itus without complications E11.9 ; Hypertensive crisis I16.9 and Hives of unknown origin L50.9 Ilir Hodge MD [address] [place] [id number] 08/25/2024 Ilir Hodge Type 2 diabetes piter itus without complications E11.9 ; Hives of unknown origin L50.9 and Essential hypertension I10 Ilir Hodge MD [address] [place] [address] [id number] 09/07/2024 Ilir Hodge Type 2 diabetes piter itus without complications E11.9 and Hives of unknown origin L50.9 Ilir Hodge MD [address] [place] [id number] 11/06/2024 Ilir Hodge Type 2 diabetes piter itus without complications E11.9 and Mild intermittent asthma, uncomplicated J45.20 Ilir Hodge MD [address] [place] [address] [id number] 11/13/2024 Ilir Hodge Bronchitis J40 Ilir Hodge MD [address] [place] [address] [id number] 11/27/2024 Ilir Hodge Persistent cough for 3 weeks or longer R05.3 ; Type 2 diabetes mellitus without complications E11.9 and Essential hypertension I10 Ilir Hodge MD [address] [place] [address] [id number] 12/28/2024 Ilir Hodge Type 2 diabetes piter itus without complications E11.9 and Mild intermittent asthma, uncomplicated J45.20 Ilir Hodge MD [address] [place] [address] [id number] 01/15/2025 Ilir Hodge Annual physical exam Z00.00 ; Abdominal mass of other site R19.09 ; Mild intermittent asthma, uncomplicated J45.20 ; Hives of unknown origin L50.9 ; Essential hypertension I10 ; Depression F32.9 ; Type 2 diabetes mellitus without complications E11.9 and Depression screening Z13.31 Ilir Hodge MD [address] [place] [address] [id number] 02/19/2025 Ilir Hodge Hives of unknown gregg gin L50.9 ; Essential hypertension I10 ; Type 2 diabetes mellitus without complications E11.9 and Persistent cough R05.3 Ilir Hodge MD [address] [place] [address] [id number] 03/22/2025 Ilir Hodge Abnormal CAT scan R9 3.89 and Cough R05.9 Ilir Hodge MD [address] [place] [address] [id number] 05/14/2025 Ilir Hodge Type 2 diabetes piter itus without complications E11.9 and Cough in adult R05.9 Ilir Hodge MD [address] [place] [address] [id number] 06/14/2025 Ilir Hodge Abnormal CAT scan R9 3.89 ; Thrombocytopenia D69.6 ; Type 2 diabetes mellitus without complications E11.9 and Cough in adult R05.9 Ilir Hodge MD [address] [place] [address] [id number] 03/05/2025 Ilir Hodge MD [address] [place] [address] [id number] 06/14/2025 Ilir Hodge Interstitial lung di sease J84.9 Ilir Hodge MD [address] [place] [address] [id number] 06/18/2025 Ilir Hodge Assessments Encounter Date Diagnosis (ICD [...] (ICD-10 - L50.9) is going to see wet chemistry analyst in one month. 11/06/2024 Type 2 diabetes [...] diagnostic testing, THE ORDER WAS FAXED [place] [facility], 02/19/2025 Hives of unknown origin [...] to repeat her ct in 3 weeks 06/14/2025 Abnormal CAT scan (ICD-10 - R93.89) need results of cat scan done this week/ report scanned in chart / had a cat scan of chest which is reportedly abnormal 06/14/2025 Thrombocytopenia (ICD-10 - D69.6) seeing hematology tomorrow./ US scan order faxed [place] [facility] 06/14/2025 Interstitial lung disease (ICD-10 - J84.9) CT Chest due 01/08/2025 Essential hypertensi on (ICD-10 - I10) [...] (ICD-10 - R05.3) have suggested going to [facility] 06/14/2025 Type 2 diabetes mellitus without complications (ICD-10 - E11.9) is doing fairly well even on steroids 01/08/2025 Type 2 diabetes mellitus without complications (ICD-10 - E11.9) 01/15/2025 Essential hypertensi on (ICD-10 - I10) stable, will continue current regiment 06/14/2025 Cough in adult (ICD- 10 - R05.9) prednisone no longer helping cough 01/08/2025 Vitamin D deficiency (ICD-10 - E55.9) [...] need to speak to dr reeves at [facility] about her chest ct/ Will call [facility] [...] MAMMOGRAM DIGITAL BILATERAL SCREEN 09/09 US ABD 06/14/2025 US ABD 01/15/2025 ECHO 10/09/2019 CT chest wo/w con 03/22/2025 CT chest wo con 06/14/2025 CT chest wo con 11/27/2024 MM screening mammo BI 01/05/2023 XR DEXA axial skeleton 01/05/2023 Next Appt Details Provider Name:Ilir Forrester ier, 06/28/2025 07:45:00 AM, [address] [place] [address], [address] [place] [address], [phone], Provider Name:Ilir mendiolar, 07/19/2025 07:15:00 AM, [address] [place] [address], [address] [place] [address], [phone], Provider Name:Ilir mendiolar, 01/11/2026 07:15:00 AM, [address] [place] [address], [address], [phone], Provider Name:Ilir Forrester ier, 01/18/2026 09:30:00 AM, [address] [place] [address], [address], [phone], Insurance Providers Payer Name Payer Address Payer Phone Subscriber Number Group Number Insured Name Patient Relationship to Insured Coverage Start Date Coverage End Date [facility] [employer] [address] [address] [place] [address] [id number] RADHA SIFUENTES Self - patient is the insured MEDICARE [employer] [address] [place] [id number] RADHA SIFUENTES Self - patient is the insured Medical (General) History Medical History History ICD Code colonoscopy 2010 due in 5 ye ars; colonoscopy 04/13/[address] Georgina Philippe in 2027
== END 2025-06-25 11:31 | disposition home or self-care (01) ==
LOC: HO.HPSW 10:16
PROVIDERS: PCP Internal Medicine; Visit Provider Nurse Practitioner Family
DX: J84.9 Interstitial pulmonary disease, unspecified (principal); J45.909 Unspecified asthma, uncomplicated; R05.3 Chronic cough; L50.1 Idiopathic urticaria
CPT/HCPCS: 99214; G2211

== ENCOUNTER → 2025-06-25 10:15 | Outpatient (BNVA) | payer MEDICARE, SELFPAY | PROVIDERS: PCP Internal Medicine; Visit Provider Nurse Practitioner Family | DX: J84.9 Interstitial pulmonary disease, unspecified (principal); J45.909 Unspecified asthma, uncomplicated; R05.3 Chronic cough; L50.1 Idiopathic urticaria; E66.9 Obesity, unspecified; Z68.41 Body mass index [BMI] 40.0-44.9, adult | CPT/HCPCS: 99212 ==

== ENCOUNTER 2025-07-19 13:20 | Outpatient (REF) | payer MEDICARE, SELFPAY ==
--- OUTSIDE RECORDS SUMMARY | 2025-02-19 04:15 | XMS_ITS ---
Author Organization Ilir Hodge MD Address [address] [place] [phone] Care Team Providers Care Personnel Psychologist Name Role Phone Ilir Hodge Primary Care [...] Sertraline HCl 100MG take 1 tablet by nd ut once daily for 90 days Orally [...] Location Date Provider Diagnosis Ilir Hodge MD [address] [place] [address] [place] [phone] 02/19/2025 Ilir Hodge Hives of unknown origin [...] (ICD-10 - R05.3) have suggested going to [place] 02/19/2025 Other need to speak to dr reeves at [facility] about her chest ct/ Will [...] regiment Persistent cough have suggested going to [place] Other need to speak to dr reeves at [facility] about her chest ct/ Will call [facility] for request Next Appt Details Follow Up: 4 Weeks, Reason: Provider Name:Ilir alford, 08/03/2025 07:30:00 AM, [address] [place] [address], [address], [place], [place], [phone], Provider Name:Ilir alford, 01/11/2026 07:15:00 AM, [address] [place] [address], [address], [place], [place], [phone], Provider Name:Ilir alford, 01/18/2026 09:30:00 AM, [address] [place] [address], [address], [place], [place], [phone], Progress Notes * SAVANNAH SIFUENTES EDOB: 9 (64 yo F)Acc No.[id number]:02/19/2025 Progress Notes Patient: SAVANNAH BRAR Provider: Lizbeth Hodge MD :1960 A ge:64 Y S ex:Female Date:02/19/2025 Address:[address] [place], [place] [phone] Subjective: * Chief Complaints: * 4 WK [...] ersistent cough Notes: have suggested going to [place] 5. O thers Notes: need to speak to dr reeves at [facility] about her chest ct/ Will call [facility] for request ? * Procedure Codes: * Follow Up: 4 Weeks * * Sign off status: Completed true * Provider: Lizbeth Hodge MD Date: 0 02/19/2025 Generated for Valentin medina/Alexia/eTjayitting on: 09/18/2024 06:49 PM EST History and Physical Notes * [...]
--- OUTSIDE RECORDS SUMMARY | 2025-03-05 06:24 | XMS_ITS ---
Author Organization Ilir Hodge MD Address [address] [place] [phone] Care Team Providers Care Engraver Name Role Phone Ilir Hodge Primary Care Provider [phone] Encounters Encounter Location Date Provider Diagnosis Ilir Hodge MD [address] [place] [phone] 03/05/2025 Ilir Hodge Plan Of Treatment Next Appt Details Provider Name:Ilir alford, 08/03/2025 07:30:00 AM, [address], [address], [place], [place], [phone], Provider Name:Ilir alford, 01/11/2026 07:15:00 AM, [address], [address], [place], [place], [phone], Provider Name:Ilir Forrester ier, 01/18/2026 09:30:00 AM, [address], [address], [place], [place], [phone], Progress Notes * SAVANNAH SIFUENTES EDOB: (64 yo F)Acc No.[id number]:03/05/2025 Patient: Janine SAVANNAH MEJIA :1960 A ge:64 Y S ex:Female Address:[address] [place] [address] ERNESTINE Hilario, [address] * true * Date: Generated for Valentin medina/Alexia/Majorsmitting on: 09/18/2024 06:49 PM EST
--- OUTSIDE RECORDS SUMMARY | 2025-03-22 06:30 | XMS_ITS ---
Author Organization Ilir Hodge MD Address [address] [place] [phone] Care Team Providers Care Microbiology Professor Name Role Phone Ilir Hodge Primary Care Provider Allergies Allergen (clinical drug ingredient) Drug/Non Drug Allergy documented on EMR Reaction Allergy Type Onset Date Status dulaglutide Trulicity pancreatitis Drug Allergy Ac tive Penicillin G Benzathine hives Drug Allergy Active sulfamethoxazole / trimethoprim Bactrim low platelets Drug Allergy Active REASON FOR VISIT 4 week Medications Medication SIG (Take, Route, Frequency, Duration) Notes Start Date End Date Status Valtrex 1 GM 1 tablet Orally 3 ti mes a day for 7 days 12/17/2020 Not-Taking Ibuprofen 800 MG 1 tablet with food o r milk as needed Orally Three times a day 09/01/2019 Not-Taking Vitamin D3 50 MCG (2000 UT) 1 capsule Orally Once a day for 30 day(s) 01/01/2022 Not-Taking HumaLOG KwikPen 100 UNIT/ML 60 units Subcutaneous Active Paxlovid (300/100) 20 x 150 MG & 10 x 100MG 2 tabs of nirm and 1 tab sukhjinder Orally twice for 5 days 05/15/2022 Not-Taking Ipratropium-Albuterol 0.5-2.5 (3) MG/3ML 3 mL as needed Inhalation every 6 hrs 12/28/2024 Active Montelukast Sodium 10 MG 1 tablet Orally Once a day 12/28/2024 Active predniSONE 5 MG 1 tablet with food o r milk Orally Once a day Active Lisinopril-hydroCHLOROth iazide [...] a day for 10 day(s) 03/10/2021 Active Problems Problem Type SNOMED Code ICD Code Onset Dates Problem Status W/U Status Risk Notes Problem Computed tomography result abnormal (106576631) Abnormal CAT scan (R93.89) Active confirmed Vital Signs Blood pressure systolic 132 mm Hg 03/22/20 25 Blood pressure diastolic 86 mm Hg 025 Height 64 in 03/22/2025 Weight 245 lbs 03/22/2025 BMI 42.05 kg/m2 03/22/2025 Encounters Encounter Location Date Provider Diagnosis Ilir Hodge MD [address] [place] [address] [place] [phone] 03/22/2025 Ilir Hodge Abnormal CAT scan R93.89 and Cough R05.9 Assessments Encounter Date Diagnosis (ICD Code) Assessment Notes Treatment Notes Treatment Clinical Notes Section Notes 03/22/2025 Abnormal CAT scan (ICD-10 - R93.89) pending diagnostic testing spoke with radiologist and they think that there may be subtle changes in lower lobe and that we should see a difference by this time. insurance said put her on high dose steroids and she has been on high dose steroids twice in past. 03/22/2025 Cough (ICD-10 - R05.9) spoke with radiologist and they think that there may be subtle changes in lower lobe and that we should see a difference by this time. insurance said put her on high dose steroids and she has been on high dose steroids twice in past. 03/22/2025 Other Total time spen t on the date of the encounter is 35 minutes including both face to face time spent and time spent reviewing documentation and counseling the patient. spoke with radiologist and they think that there may be subtle changes in lower lobe and that we should see a difference by this time. insurance said put her on high dose steroids and she has been on high dose steroids twice in past. Plan Of Treatment Treatment Notes Assessment Notes Abnormal CAT scan pending diagnostic t esting Other Total time spent on the date of the encounter is 35 minutes including both face to face time spent and time spent reviewing documentation and counseling the patient. Pending Test Test Name Order Date CT chest wo/w con 03/22/2025 Next Appt Details Follow Up: 2 Months, Reason: Provider Name:Ilir alford, 08/03/2025 07:30:00 AM, [address], [address], [place], [place], [phone], Provider Name:Ilir alford, 01/11/2026 07:15:00 AM, [address] [facility], [address], [place], [phone], Provider Name:Ilir Alfonso Usama alford, 01/18/2026 09:30:00 AM, [address] [place] [address] Drive, [address], [place], [place], [phone], Progress Notes * SAVANNAH SIFUENTES EDOB: 9 (64 yo F)Acc No.[id number]:03/22/2025 Progress Notes Patient: SAVANNAH BRAR Provider: Lizbeth Hodge MD :1960 A ge:64 Y S ex:Female Date:03/22/2025 Address:[address] [place] [address] wale Hilario, [id number] Subjective: * Chief Complaints: * 4 week * HPI: S ymptom(s): patient is a 64 yo female here for 4 weel follow up visit/ still coughing. going to see adventure therapist. * ROS: G eneral/Constitutional: Denies C hills. D enies F atigue. D enies F ever. D enies H eadache. E NT: Denies S ore throat. R espiratory: Denies C ough. D enies S hortness of [...] Aerosol 2 puffs Inhalation twice a day Ipratropium-Albuterol 0.5-2.5 (3) MG/3ML Solution 3 mL as needed Inhalation every 6 hrs Montelukast Sodium 10 MG Tablet 1 tablet Orally Once a day predniSONE 5 MG Tablet 1 tablet with food or milk Orally Once a day Lisinopril-hydroCHLOROthiazide 20-12.5 MG [...] 2 puffs Inhalation twice a day Taking Ipratropium-Albuterol 0.5-2.5 (3) MG/3ML Solution 3 mL as needed Inhalation every 6 hrs Taking Montelukast Sodium 10 MG Tablet 1 tablet Orally Once a day Taking predniSONE 5 MG Tablet 1 tablet with food or milk Orally Once a day Taking Lisinopril-hydroCHLOROthiazide 20-12.5 [...] Vitals: H t: 64, Wt: 245, BMI:42.05, BP:132/86, Wt-k.13. * Examination: G eneral Examination: GENERAL APPEARANCE: a lert, well hydrated, in no distress.? SKIN: g ood turgor. HEART: r egular rate and rhythm, no murmurs, rubs, gallops.? LUNGS: c lear to auscultation bilaterally, good air movement, no wheezes, rales, rhonchi. Assessment: * Assessment: 1. A bnormal CAT scan - R93.89 (Primary) 2 . C ough - R05.9 ? spoke with radiologist and t dereje think that there may be subtle changes in lower lobe and that we should see a difference by this time. insurance said put her on high dose steroids and she has been on high dose steroids twice in past. Plan: * Treatment: 2. O thers Notes: Total time spent on the date of the encounter is 35 minutes including both face to face time spent and time spent reviewing documentation and counseling the patient. * Procedure Codes: * Follow Up: 2 Months * * Sign off status: Completed true * Provider: Lizbeth Hodge MD Date: 0 03/22/2025 Generated for Valentin medina/Alexia/Amberitting on: 09/18/2024 06:48 PM EST History and Physical Notes * HPI (History of Present Illness) Category Sub-Category Detail Notes Category Not es Symptom(s) patient is a 64 yo female here for 4 weel follow up visit/ still coughing. going to see adventure therapist Examination Category Sub-Category Detail Notes Category Not es General Examination GENERAL APPEARANCE: alert, w ell hydrated, in no distress HEART: regular rate and rhy thm, no murmurs, rubs, gallops LUNGS: clear to auscultatio n bilaterally, good air movement, no wheezes, rales, rhonchi SKIN: good turgor
--- OUTSIDE RECORDS SUMMARY | 2025-05-14 04:00 | XMS_ITS ---
Author Organization Ilir Hodge MD Address [address] [place] [phone] Care Team Providers Care Ticket Sales Agent Name Role Phone Ilir Hodge Primary Care Provider [phone] Allergies Allergen (clinical drug ingredient) Drug/Non Drug [...] Date Provider Diagnosis Ilir Hodge MD [address] [place] [address] [place] [phone] 05/14/2025 Ilir Hodge Type 2 diabetes mellitus [...] Reason: Provider Name:Ilir alford, 08/03/2025 07:30:00 AM, [address] [place] [address], [address], [phone], Provider Name:Ilir Alfonso Usama alford, 01/11/2026 07:15:00 AM, [address] [place] [address], [address], [phone], Provider Name:Ilir alford, 01/18/2026 09:30:00 AM, [address] [place] [address], [address], [phone], Progress Notes * SAVANNAH SIFUENTES EDOB: (64 yo F)Acc No.[id number]:05/14/2025 Progress Notes Patient: SAVANNAH BRAR Provider: Lizbeth Hodge MD :1960 A ge:64 Y S ex:Female Date:05/14/2025 Address:[address] [place], [place] [address]t [place], [place] Subjective: * Chief Complaints: * 2 monthPatient [...] 0 05/14/2025 Generated for Valentin medina/Alexia/Amberitting on: 09/18/2024 06:49 PM EST History and [...]
--- OUTSIDE RECORDS SUMMARY | 2025-06-14 02:30 | XMS_ITS ---
Author Organization Ilir Hodge MD Address [address] [place] [phone] Care Team Providers Care Cash Applications Specialist Name Role Phone Ilir Hodge Primary [...] Status W/U Status Risk Notes Problem Thrombocytopenia (850841250) Thrombocytopenia (D69.6) Active confirmed Vital Signs Blood pressure systolic 192 mm Hg 06/14/20 25 Blood pressure diastolic 98 mm Hg 025 Height 64 in 06/14/2025 Weight 251 lbs 06/14/2025 BMI 43.08 kg/m2 06/14/2025 weight is up 5 pounds since 05-14-25 Encounters Encounter Location Date Provider Diagnosis Ilir Hodge MD [address] [place] [address] [place] [phone] 06/14/2025 Ilir Hodge Abnormal CAT scan R93.89 [...] hematology tomorrow./ US scan order faxed to [facility] dept 06/14/2025 Type 2 diabetes mellitus [...] to genesis./ US scan order faxed to [facility] dept Type 2 diabetes mellitus without complic ations is doing fairly well even on steroids Cough in adult prednisone no longer helping cough Pending Test Test Name Order Date US ABD 06/14/2025 Next Appt Details Follow Up: 2 Weeks, Reason: Provider Name:Ilir alford, 08/03/2025 07:30:00 AM, [address] [place] [address], [address] [place] [address], [phone], Provider Name:Ilir alford, 01/11/2026 07:15:00 AM, [address] [place] [address], [address] [place] [address], [phone], Provider Name:Ilir alford, 01/18/2026 09:30:00 AM, [address] [place] [address], [address] [place] [address], [phone], Progress Notes * SAVANNAH SIFUENTES EDOB: 9 (65 yo F)Acc No.[id number]:06/14/2025 Progress Notes Patient: SAVANNAH BRAR Provider: Lizbeth Hodge MD :1960 A ge:65 Y S ex:Female Date:06/14/2025 Address:[address] [place] [address] wale Hilario, [id number] Subjective: * Chief Complaints: * 1 MO [...] hematology tomorrow./ US scan order faxed to [facility] dept 3. T ype 2 diabetes mellitus without complications Notes: is doing fairly well even on steroids 4. C ough in adult Notes: prednisone no longer helping cough * Procedure Codes: * Follow Up: 2 Weeks * * Sign off status: Completed true * Provider: Lizbeth Hodge MD Date: Generated for Valentin medina/Alexia/Amberitting on: 09/18/2024 06:50 PM EST History and Physical Notes * [...]
--- OUTSIDE RECORDS SUMMARY | 2025-06-14 07:39 | XMS_ITS ---
Author Organization Ilir Hodge MD Address [address] [place] [phone] Care Team Providers Care Receiving Weigher Name Role Phone Ilir Hodge Primary Care Provider REASON FOR VISIT Chest CT Scan due Encounters Encounter Location Date Provider Diagnosis Ilir Hodge MD [address] [place] [phone] 06/14/2025 Ilir Hodge Interstitial lung disease J84.9 [...] 07:30:00 AM, [address], [address], [place], [place], [phone], Provider Name:Ilir Forrester ier, 01/11/2026 07:15:00 AM, [address], [address], [place], [place], [phone], Provider Name:Ilir Forrester ier, 01/18/2026 09:30:00 AM, [address], [address], [place], [place], [phone], Progress Notes * SAVANNAH SIFUENTES EDOB: (65 yo F)Acc No.[id number]:06/14/2025 Patient: Janine SAVANNAH MEJIA :1960 A ge:65 Y S ex:Female Address:[address] [place] [address], [address] Subjective: * Chief Complaints: * C hest CT Scan due * Medical History: * Surgical History: * Hospitalization/Major Diagno stic Procedure: * Medications: Objective: * Vitals: * Physical Examination: Assessment: * Assessment: 1. I nterstitial lung disease - J84.9 Plan: * Treatment: * Procedure Codes: * true * Date: Generated for Valentin medina/Alexia/eTyunielsmitting on: 09/18/2024 06:49 PM EST
--- OUTSIDE RECORDS SUMMARY | 2025-06-18 09:38 | XMS_ITS ---
Author Organization Ilir Hodge MD Address [address] [place] [phone] Care Team Providers Care Cattle Sticker Name Role Phone Ilir Hodge Primary Care Provider REASON FOR VISIT ER Encounters Encounter Location Date Provider Diagnosis Ilir Hodge MD [address] [place] [phone] 06/18/2025 Ilir Hodge Plan Of Treatment Next Appt Details Provider Name:Ilir alford, 08/03/2025 07:30:00 AM, [address], [address], [place], [place], [phone], Provider Name:Ilir alford, 01/11/2026 07:15:00 AM, [address], [address], [place], [phone], Provider Name:Ilir Forrester ier, 01/18/2026 09:30:00 AM, [address], [address], [place], [place], [phone], Progress Notes * SAVANNAH SIFUENTES EDOB: (65 yo F)Acc No.[id number]:06/18/2025 Patient: Janine SAVANNAH MEJIA :1960 A ge:65 Y S ex:Female Address:[address] [place] [address] [place] Hilario, [address] * true * Date: Generated for Valentin medina/Alexia/Majorsmitting on: 09/18/2024 06:49 PM EST
--- OUTSIDE RECORDS SUMMARY | 2025-06-28 02:45 | XMS_ITS ---
Author Organization Ilir Hodge MD Address [address] [place] [phone] Care Team Providers Care Senior Chemical Process Engineer Name Role Phone Ilir Hodge Primary Care [...] Location Date Provider Diagnosis Ilir Hodge MD [address] [place] [address] [place] [phone] 06/28/2025 Ilir Peñabernarda Interstitial lung disease J84.9 ; Thrombocytopenia D69.6 ; Cough in adult R05.9 ; Essential hypertension I10 and Hives of unknown origin L50.9 Assessments Encounter Date Diagnosis (ICD Code) Assessment Notes Treatment Notes Treatment Clinical Notes Section Notes 06/28/2025 Interstitial lung disease (ICD-10 - J84.9) feel as though she should go to [facility] 06/28/2025 Thrombocytopenia (ICD-10 - D69.6) is doing better followed by dr cedillo/ awaiting the us of the abdomen/ US order faxed to [facility] 06/28/2025 Cough in adult (ICD-10 - R05.9) should go to [facility]./ spoke with patient, she wants to discuss [...] feel as though she should go to [facility] Thrombocytopenia is doing better foll owed by dr cedillo/ awaiting the us of the abdomen/ US order faxed to [facility] Cough in adult should go to [facility]. / spoke with patient, she wants to discuss this again at her next visit in 4 weeks Next Appt Details Follow Up: 4 Weeks, Reason: Provider Name:Ilir alford, 08/03/2025 07:30:00 AM, [address] [place] [address], [address] [place] [address], [phone], Provider Name:Ilir alford, 01/11/2026 07:15:00 AM, [address] [place] [address], [place] [address], [place], [place], [phone], Provider Name:Ilir Forrester ier, 01/18/2026 09:30:00 AM, [address], [address], [place], [phone], Progress Notes * SAVANNAH SIFUENTES EDOB: [birth year] (65 yo F)Acc No.[id number]:06/28/2025 Progress Notes Patient: SAVANNAH BRAR Provider: Lizbeth Hodge MD :1960 A ge:65 Y S ex:Female Date:06/28/2025 Address:[address] [place] [address] [id number] Subjective: * Chief Complaints: * 2 week [...] Once a day. Notes: should go to [facility]./ spoke with patient, she wants to discuss [...] Date: Generated for Valentin medina/Alexia/Amberitting on: 09/18/2024 06:49 PM EST History and Physical Notes * Examination Category Sub-Category Detail Notes Category Not es General Examination GENERAL APPEARANCE: alert, w ell hydrated, in no distress HEART: grade 2/6 systolic m urmur at left sternal border LUNGS: no wheezes, rales, r honchi, good air movement, clear to auscultation bilaterally SKIN: good turgor
--- OUTSIDE RECORDS SUMMARY | 2025-07-19 02:15 | XMS_ITS ---
Author Organization Ilir Hodge MD Address [address] [place] [phone] Care Team Providers Care Bench Patternmaker Metal Name Role Phone Ilir Hodge Primary Care Provider [phone] Results Component Value Reference Range Notes Liver Panel Reviewed date:07/19/2025 04:49:58 PM Interpretation: Performing Lab:[facility], [address] [place] [phone] Notes/Report: Bilirubin Total 1.3 0.0-1.0 mg/dL Bilirubin Direct 0.5 0.0-0.5 mg/dL Aspartate Amino Transferase 35 5-31 U/L Alanine Aminotransferase 44 0-31 U/L Total Protein 6.4 6.5-8.0 g/dL Albumin Level 4.0 3.5-5.0 g/dL Alkaline Phosphatase 70 39-117 U/L Glucose Fasting Reviewed date:07/19/2025 04:50:07 PM Interpretation: Performing Lab:[facility], [address] [place] [phone] Notes/Report: Glucose Fasting 82 60-99 mg/dL Lipid Panel with Reflex Reviewed date:07/19/2025 04:48:06 PM Interpretation: Performing Lab:[facility], [address] [place] [phone] Notes/Report: Triglycerides 70 <150 mg/dL Desirable Triglyceride: [...] A1c Reviewed date:07/19/2025 04:48:20 PM Interpretation: Performing Lab:[address] [phone] Notes/Report: Hemoglobin A1c % 6.7 <6.0 % [...] average glucose, using the formula of the V6J-Elpvozg Average Glucose study (ADAG), Diabetes Care, Vol.31,#8, Mar. 2007 REASON FOR VISIT FASTING LIPIDS Encounters Encounter Location Date Provider Diagnosis Ilir Hodge MD [address] [place] [phone] 07/19/2025 Ilir Hodge Pure hypercholestero lemia E78.00 and Type 2 diabetes mellitus without complications E11.9 Assessments Encounter Date Diagnosis (ICD Code) Assessment Notes Treatment Notes Treatment Clinical Notes Section Notes 07/19/2025 Pure hypercholesterolemia (ICD-10 - E78.00) 07/19/2025 Type 2 diabetes piter itus without complications (ICD-10 - E11.9) Plan Of Treatment Next Appt Details Provider Name:Ilir alford, 08/03/2025 07:30:00 AM, Hospital [facility], [facility], [place], [place], [phone], Provider Name:Ilir alford, 01/11/2026 07:15:00 AM, [address] [place] [address], [address] [place] [address], [phone], Provider Name:Ilir alford, 01/18/2026 09:30:00 AM, [address] [place] [address], [address] [place] [address], [phone], Progress Notes * SAVANNAH SIFUENTES EDOB: (65 yo F)Acc No.[id number]:07/19/2025 Progress Note Patient: SAVANNAH BRAR Provider: Lizbeth Hodge MD :1960 A ge:65 Y S ex:Female Date:07/19/2025 Address:[address] [place] [address] [phone] Subjective: * Chief Complaints: * 1 . [...] Pending * Provider: Lizbeth Hodge MD Date: 09/18/2024 Generated for Valentin medina/Alexia/Amberitting on: 09/18/2024 06:48 PM EST
--- OUTSIDE RECORDS SUMMARY | 2025-07-19 02:30 | XMS_ITS ---
Author Organization Ilir Hodge MD Address [address] [place] [phone] Care Team Providers Care Media Production Support Manager Name Role Phone Ilir Hodge Primary Care Provider [phone] Allergies Allergen (clinical drug ingredient) Drug/Non Drug [...] Date Provider Diagnosis Ilir Hodge MD [address] [place] [address] [address] [place], [place] [phone] 07/19/2025 Ilir Hodge Essential hypertension I10 and [...] Provider Name:Ilir alford, 08/03/2025 07:30:00 AM, [address] [place] [address], [address], [phone], Provider Name:Ilir alford, 01/11/2026 07:15:00 AM, [address] [place] [address], [address], [phone], Provider Name:Ilir alford, 01/18/2026 09:30:00 AM, [address] [place] [address], [address], [phone], Progress Notes * SAVANNAH SIFUENTES EDOB: (65 yo F)Acc No.[id number]:07/19/2025 Patient: Janine FLORESITAJANEE BRYANTLokesh Watson Provider: Lizbeth Hodge MD :1960 A ge:65 Y S ex:Female Date:07/19/2025 Address:[address] [place] [address] Beat[place] Hilario [phone] Subjective: * Chief Complaints: * 1 . 4 week. * HPI: S ymptom(s): patient is a 65 yo female here for 4 week follow up visiyt/ on increased dose of prednisone. * ROS: G eneral/Constitutional: Denies C hills. D enies F atigue. D enies F ever. D enies H eadache. E NT: Denies S ore throat. R espiratory: Admits Alice nolan. D enaudrey S hortness of breath at rest. A dmits S hortness of breath with exertion. D enies S putum production. A dmits W heezing. G astrointestinal: Denies D iarrhea. D enies N ausea. * Medical History: c olonoscopy 2010 due in 5 years; colonoscopy 04/13/[address] Georgina Philippe in 2027. * Medications: T aking Aspir-Low 81 MG Tablet Delayed Release 1 tablet Orally Once a day , Taking Clobetasol Propionate 0.05 % Cream 1 application Externally Twice a day , Taking Vitamin D3 125 MCG (5000 UT) Capsule 1 tablet Orally Once a day , Taking Rosuvastatin Calcium 40 MG Tablet 1 tablet Orally Once a day , Taking Sertraline HCl 100MG Tablet take 1 tablet by mouth once daily for 90 days Orally Once a day , Taking Albuterol Sulfate HFA 108 (90 Base) MCG/ACT Aerosol Solution 2 puffs as needed Inhalation every 4 hrs , Taking Symbicort 160-4.5 MCG/ACT Aerosol 2 puffs Inhalation twice a day , Taking Ipratropium-Albuterol 0.5-2.5 (3) MG/3ML Solution 3 mL as needed Inhalation every 6 hrs , Taking Montelukast Sodium 10 MG Tablet 1 tablet Orally Once a day , Taking HumaLOG KwikPen 100 UNIT/ML Solution Pen-injector 60 units Subcutaneous , Taking Lisinopril-hydroCHLOROthiazide 20-12.5 MG Tablet take 2 tablet by mouth once daily for 90 days Orally Once a day , Taking amLODIPine Besylate 10 MG Tablet 1 tablet Orally Once a day , Taking Hydrocod Juan Carlos-Chlorphe Juan Carlos ER 10-8 MG/5ML Suspension Extended Release 5 mL as needed Orally every 12 hrs , Notes to Pharmacist: Partial Fill upon Patient Request, Taking predniSONE 20 MG Tablet 2.5 tabs QD Orally Once a day , Not-Taking/PRN Paxlovid (300/100) 20 x 150 MG & 10 x 100MG Tablet Therapy Pack 2 tabs of nirm and 1 tab sukhjinder Orally twice , Not-Taking/PRN Vitamin D3 50 MCG (2000 UT) Capsule 1 capsule Orally Once a day , Not-Taking/PRN Valtrex 1 GM Tablet 1 tablet Orally 3 times a day , Not-Taking/PRN Ibuprofen 800 MG Tablet 1 tablet with food or milk as needed Orally Three times a day , Medication List reviewed and reconciled with the patient * Allergies: B actrim: low platelets, Penicillin G Benzathine: hives, Trulicity: pancreatitis. Objective: * Vitals: H t: 64, Wt: [...] Notes: stable, will continue current regiment * Follow Up: 2 Weeks * * The named appointment provid er may or may not be the originator of this progress note, and it is not deemed complete until electronically signed by the appointment provider. Sign off status: Pending * Provider: Lizbeth Hodge MD Date: 09/18/2024 Generated for Valentin medina/Alexia/eTyunielsmitting on: 09/18/2024 06:49 PM EST History and [...]
[2025-07-19 13:56] LABS: Alanine Aminotransferase 44 U/L (0-31); Albumin Level 4.0 g/dL (3.5-5.0); Alkaline Phosphatase 70 U/L (39-117); Aspartate Amino Transferase 35 U/L (5-31); Cholesterol 104 mg/dL (<200); HDL Cholesterol 72 mg/dL (>40); Total Protein 6.4 g/dL (6.5-8.0); Triglycerides 70 mg/dL (<150)
[2025-07-19 15:04] LABS: Reflex LDLD? No
--- OUTSIDE RECORDS SUMMARY | 2025-07-19 18:50 | XMS_ITS | Patient Health Record ---
Author Organization Ilir Hodge MD Address [address] [place] [phone] Care Team Providers Care Vocational Adviser Name Role Phone Ilir Hodge Primary Care [...] ff Reviewed date:01/08/2025 12:36:23 PM Interpretation: Performing Lab:[facility], [address] [place] [phone] Notes/Report: White Blood Count 6.5 4.8-10.8 X10*3/uL [...] NRBC Abs Auto 0.000 0.0-0.012 X10*3/uL Comprehensive [place]. Panel Fa st Reviewed date:01/10/2025 07:02:22 PM Interpretation: Performing Lab:[facility], [address] [place] [phone] Notes/Report: Sodium 144 135-145 mmol/L Potassium 4.7 [...] Panel Reviewed date:01/08/2025 05:12:45 PM Interpretation: Performing Lab:[address] [phone] Notes/Report: Triglycerides 96 <150 mg/dL Desirable Triglyceride: [...] Total Reviewed date:01/08/2025 05:13:08 PM Interpretation: Performing Lab:[address] [address] Notes/Report: Vitamin D 25-OH Total 20.3 >30 ng/mL Health Based Reference Values* < 20 ng/mL Deficient 20-30 ng/mL Insufficient > 30 ng/mL Sufficient *Holick MF. N Engl J Med. 2007;357:266-280 There is [...] Random Reviewed date:01/08/2025 12:34:10 PM Interpretation: Performing Lab:[facility], [address] [place] [phone] Notes/Report: Creatinine Urine 177.53 Microalbumin Urine 293.0 Microalbum/Creatinine Ratio Ur 165.0 <30 ug/mg cr Albumin/Creatinine Ratio Reference Ranges: Normal: < 30 ug/mg creatinine Microalbuminuria: 30 - 300 ug/mg creatinine Clinical Albuminuria: > 300 ug/mg creatinine Hemoglobin A1c Reviewed date:01/08/2025 03:03:50 PM Interpretation: Performing Lab:[facility], [address] [place] [phone] Notes/Report: Hemoglobin A1c % 7.0 <6.0 % [...] average glucose, using the formula of the E4T-Rltpelo Average Glucose study (ADAG), Diabetes Care, Vol.31,#8, Mar. 2007 UA ClnCatch+Micro w/rflx Cul t Reviewed date:01/08/2025 12:35:06 PM Interpretation: Performing Lab:[facility], [address] [place] [phone] Notes/Report: Urine, Clean Catch Color Urine Yellow Appearance Urine Hazy PH 6.0 5.0-9.0 Glucose Urine UA Negative Negative mg/dL Urine Blood Negative Negative Specific [place] - Urine 1.025 1.005-1.025 Urine Protein 30 (1+) Neg-Trace mg/dL Urine Ketones Negative Negative mg/dL Nitrite Urine Negative Negative Leukocyte Esterase Urine Negative Negative RBC Urine 0-2 0-2 /HPF WBC Urine 0-5 0-5 /HPF Squamous Epithelial Cell Urine 0-2 0-2 /HPF Bacteria Urine 1+ None Seen Hyaline Casts Urine 0-2 0-2 /LPF Liver Panel Reviewed date:07/19/2025 04:49:58 PM Interpretation: Performing Lab:[facility], [address] [place] [phone] Notes/Report: Bilirubin Total 1.3 0.0-1.0 mg/dL Bilirubin Direct 0.5 0.0-0.5 mg/dL Aspartate Amino Transferase 35 5-31 U/L Alanine Aminotransferase 44 0-31 U/L Total Protein 6.4 6.5-8.0 g/dL Albumin Level 4.0 3.5-5.0 g/dL Alkaline Phosphatase 70 39-117 U/L Glucose Fasting Reviewed date:07/19/2025 04:50:07 PM Interpretation: Performing Lab:[facility], [address] [place] [phone] Notes/Report: Glucose Fasting 82 60-99 mg/dL Lipid Panel with Reflex Reviewed date:07/19/2025 04:48:06 PM Interpretation: Performing Lab:[facility], [address] [place] [phone] Notes/Report: Triglycerides 70 <150 mg/dL Desirable Triglyceride: [...] A1c Reviewed date:07/19/2025 04:48:20 PM Interpretation: Performing Lab:[address] [address] Notes/Report: Hemoglobin A1c % 6.7 <6.0 % [...] average glucose, using the formula of the U1T-Yihsrvk Average Glucose study (ADAG), Diabetes Care, Vol.31,#8, Mar. 2007 Glucose, finger stick Reviewed date:11/06/2024 09:00:09 AM Interpretation: Performing Lab: Notes/Report: Value 90 Complete Blood Count Auto Di ff Reviewed date:08/14/2024 02:07:47 PM Interpretation: Performing Lab:[facility], [address] [place] [phone] Notes/Report: White Blood Count 7.2 4.8-10.8 X10*3/uL [...] Panel Reviewed date:08/14/2024 02:07:32 PM Interpretation: Performing Lab:[address] [address] Notes/Report: Bilirubin Total 0.7 0.0-1.0 mg/dL Bilirubin Direct 0.2 0.0-0.5 mg/dL Aspartate Amino Transferase 27 5-31 U/L Alanine Aminotransferase 25 0-31 U/L Total Protein 7.1 6.5-8.0 g/dL Albumin Level 4.0 3.5-5.0 g/dL Alkaline Phosphatase 110 39-117 U/L Basic Metabolic Panel Reviewed date:08/14/2024 02:07:16 PM Interpretation: Performing Lab:[address] [address] Notes/Report: Sodium 142 135-145 mmol/L Potassium 4.3 [...] Sensitivity Reviewed date:08/14/2024 02:07:24 PM Interpretation: Performing Lab:[facility], [address] [place] [phone] Notes/Report: Troponin-I High Sensitivity 6.1 <3.5-17.0 ng/L The Rom[place] high sensitivity Troponin-I results should be used in conjunction with other diagnostic information such as ECG, clinical observations and information, and patient symptoms to aid in the diagnosis of OK. CT head/brain wo con Reviewed date:08/15/2024 12:24:33 PM Interpretation: Performing Lab: Notes/Report: [address] [address] [address] Scan Report Signed Patient: Radha Sifuentes MR#: [id number] 93 : 1960 Acct:[id number] Age/Sex: 64 / F ADM Date: 08/14/24 Loc: .ED Attending Dr: Ordering Physician: Riley Cummings Date of Service: 08/14/24 Procedure(s): CT head/brain wo IV con Accession Number(s): [id number] cc: Riley Cummings; Ilir Hodge MD EXAMINATION: [...] by: Carlos Huitron MD 08/14/2024 05:48 PM [facility] Dictated By: Carlos Huitron MD Signed By: <Electronically signed by Carlos Huitron MD in OV> 08/14/24 1748 DD/ 1516 TD/TT: 08/14/24 1617 Underwriting Account Representative: [place] [address] CT Scan Report Signed Patient: Janee Sifuentes MR#: [id number] 93 : 1960 Acct:[id number] Age/Sex: 64 / F ADM Date: 08/14/24 Loc: HO.ED Attending Dr: Ordering Physician: Riley Cummings Date of Service: 08/14/24 Procedure(s): CT head/brain wo IV con Accession Number(s): [id number] cc: Riley Cummings; Ilir Hodge MD EXAMINATION: [...] con IMPRESSION: No CT evidence of ac nulato intracranial hemorrhage or edematous territorial infarction.. Electronically raad d by: Carlos Huitron MD 08/14/2024 05:48 PM EST Dictated By: Carlos Huitron MD Signed By: <Electronically signed by Carlos Huitron MD in OV> 08/14/24 1748 DD/ 1516 TD/TT: 08/14/24 1617 Underwriting Account Representative: HEATH Troponin-I High Sensitivity Reviewed date:08/14/2024 04:57:01 PM Interpretation: Performing Lab:[facility], [address] [place] [phone] Notes/Report: Troponin-I High Sensitivity 8.8 <3.5-17.0 ng/L The Romo high sensitivity Troponin-I results should be used in conjunction with other diagnostic information such as ECG, clinical observations and information, and patient symptoms to aid in the diagnosis of OK. Glucose, Whole Blood Reviewed date:09/11/2024 12:40:04 PM Interpretation: Performing Lab:[facility], [address] [place] [phone] Notes/Report: Glucose, Whole Blood 139 60-115 mg/dL METER #: [id number] Testing performed in the [facility] , [address], [place]. MM tomosynthesis screening B I Reviewed date:09/28/2024 04:55:24 PM Interpretation: Performing Lab: Notes/Report: [facility] [address] [place] [address] Mammography Report Signed Patient: Radha Sifuentes MR#: [id number] 93 : 1960 Acct:[id number] Age/Sex: 64 / F ADM Date: 09/20/24 Loc: RICHAO Attending Dr: Ilir Hodge MD Ordering Physician: Ilir Hodge MD Results: 2Be nigana Findings Date of Service: 09/20/24 Follow Up: 1 Year From Orig inal Mammogram Procedure(s): MM tomosynthesis screening BI Accession Number(s): [id number] cc: Ilir Hodge MD EXAMINATION: MM SCREENING [...] by: Kateryna Quevedo DO 09/28/2024 02:51 PM [facility] Dictated By: Kateryna Quevedo DO Signed By: <Electronically signed by Kateryna Quevedo DO in OV> 09/28/24 1451 DD/ 1045 TD/TT: 09/20/24 1108 Underwriting Account Representative: [facility] [address] [place] [address] [place] [address] Mammography Report Signed Patient: Janee Sifuentes MR#: [id number] 93 : 1960 Acct:[id number] Age/Sex: 64 / F ADM Date: 09/20/24 Loc: HO.MAMMO Attending Dr: Ilir Hodge MD Ordering Physician: Ilir Hodge MD Results: 2Be nign Findings Date of Service: 09/20/24 Follow Up: 1 Year From Orig inal Mammogram Procedure(s): MM tomosynthesis screening BI Accession Number(s): [id number] cc: Ilir Hodge MD EXAMINATION: MM SCREENING [...] by: Kateryna Quevedo DO 09/28/2024 02:51 PM [facility] Dictated By: Kateryna Quevedo DO Signed By: <Electronically signed by Kateryna Quevedo DO in OV> 09/28/24 1451 DD/ 1045 TD/TT: 09/20/24 1108 Underwriting Account Representative: XR chest 2V Reviewed date:11/06/2024 05:58:04 PM Interpretation: Performing Lab: Notes/Report: [address] [address] XRay Report Signed Patient: Radha Sifuentes MR#: [id number] 93 : 1960 Acct:[id number] Age/Sex: 64 / F ADM Date: 11/06/24 Loc: HOYOHAN Attending Dr: Ilir Hodge MD Ordering Physician: Ilir Hodge MD Date of Service: 11/06/24 Procedure(s): XR chest 2V Accession Number(s): [id number] cc: Ilir Hodge MD EXAMINATION: XR CHEST [...] signed by Brandon Parra MD in OV> 11/06/241556 DD/ 9 TD/TT: 11/06/24937 Underwriting Account Representative: [place] [address] XRay Report Signed Patient: Janee Sifuentes MR#: [id number] 93 : 1960 Acct:[id number] Age/Sex: 64 / F ADM Date: 11/06/24 Loc: HOYOHAN Attending Dr: Ilir Hodge MD Ordering Physician: Ilir Hodge MD Date of Service: 11/06/24 Procedure(s): XR marjan st 2V Accession Number(s): [id number] cc: Ilir Hodge MD EXAMINATION: XR CHES [...] by Brandon Parra MD in OV> 11/06/24 155 DD/ 9 TD/TT: 11/06/[address] Underwriting Account Representative: Glucose, Whole Blood Reviewed date:11/16/2024 12:16:53 PM Interpretation: Performing Lab:[facility], [address] [place] [phone] Notes/Report: Glucose, Whole Blood 53 60-115 mg/dL METER #: [id number] Testing performed in the [facility] [place] [address], [place]. Glucose, Whole Blood Reviewed date:11/16/2024 12:16:39 PM Interpretation: Performing Lab:[facility], [address] [place] [phone] Notes/Report: Glucose, Whole Blood 93 60-115 mg/dL METER #: [id number] Testing performed in the [facility] [place]. Glucose, Whole Blood Reviewed date:02/16/2025 12:07:13 PM Interpretation: Performing Lab:[facility], [address] [place] [phone] Notes/Report: Glucose, Whole Blood 175 60-115 mg/dL METER #: [id number] Testing performed in the [facility] [place]. Cyclic Citrullinated Peptide Reviewed date:02/27/2025 12:41:48 PM Interpretation: Performing Lab:[facility], [address] [place] [phone] Notes/Report: Cyclic Citrullinated Peptide <16 Reference Range Negative: <20 Weak Positive: 20-39 Moderate Positive: 40-59 Strong Positive: >59 THIS TEST WAS PERFORMED AT: [facility] [address] [address] KIERSTEN DIAZ MD VARUN Reflex Titer and Pattern Reviewed date:02/27/2025 12:42:08 PM Interpretation: Performing Lab:[facility], [address] [place] [phone] Notes/Report: Anti Nuclear Antibody Screen POSITIVE NEGATIVE VARUN IFA is a first line screen for detecting the presence of up to approximately 150 autoantibodies in various autoimmune diseases. A positive VARUN IFA result is suggestive of autoimmune disease and reflexes to titer and pattern. Further laboratory testing may be considered if clinically indicated. For additional information, please refer to http://education.[employer]/faq/ WOU708 (This link is being provided for informational/ [...] [employer] Consensus on VARUN Patterns (https://doi.org/10.1 515/hxct-4231-0590) THIS TEST WAS PERFORMED AT: [facility] [address] [place] [phone] KIERSTEN DIAZ MD VARUN Titer 2 TNP VARUN Pattern 2 TNP VARUN Titer 3 TNP VARUN Pattern 3 TNP Sjogren's Antibodies Reviewed date:02/28/2025 06:24:17 PM Interpretation: Performing Lab:[address] [address] Notes/Report: Antibody to SS-A Antigen <1.0 NEG <1.0 NEG AI Antibody to SS-B Antigen <1.0 NEG <1.0 NEG AI THIS TEST WAS PERFORMED AT: [facility] [address] [place] [phone] KIERSTEN DIAZ MD Scleroderma 70 Antibody Reviewed date:02/28/2025 06:22:56 PM Interpretation: Performing Lab:[address] [address] Notes/Report: Scleroderma 70 Antibody <1.0 NEG <1.0 NEG AI THIS TEST WAS PERFORMED AT: [facility] [address] [place] [phone] KIERSTEN DIAZ MD Anti DNA DS Antibody Reviewed date:02/28/2025 06:24:31 PM Interpretation: Performing Lab:[address] [address] Notes/Report: Anti DNA DS Antibody <1 IU/mL Interpretation < or = 4 Negative 5-9 Indeterminate > or = 10 Positive THIS TEST WAS PERFORMED AT: [facility] [address] [place] [phone] KIERSTEN DIAZ MD Rheumatoid Factor Reviewed date:02/20/2025 08:53:03 AM Interpretation: Performing Lab:[facility], [address] [place] [phone] Notes/Report: Rheumatoid Factor < 13.0 <15.0 IU/mL Hypersensitive Pneumonitis P rf Reviewed date:02/28/2025 06:24:39 PM Interpretation: Performing Lab:[facility], [address] [place] [phone] Notes/Report: Asperg fumigatus Precip Abs NEGATIVE NEGATIVE Micropoly faeni Abs NEGATIVE NEGATIVE [place] serum Abs NEGATIVE NEGATIVE Thermo candidus Abs NEGATIVE NEGATIVE Thermoa vulgaris #1 NEGATIVE NEGATIVE Saccharo pora viridis Abs NEGATIVE NEGATIVE This test was developed and its analytical performance characteristics have been determined by [employer]. It has not been cleared or approved by the FDA. This assay has been validated pursuant to the CLIA regulations and is used for clinical purposes. THIS TEST WAS PERFORMED AT: [facility] [address] [place] [address] ROLAN GAY MD,PHD,DAE US abdomen complete Reviewed date:02/27/2025 12:05:42 PM Interpretation: Performing Lab: Notes/Report: [facility] [address] [place] [address] Ultrasound Report Signed Patient: Radha Sifuentes MR#: [id number] 93 : 1960 Acct:[id number] Age/Sex: 64 / F ADM Date: 02/26/25 [facility]: Ilir Hodge MD Ordering Physician: Ilir Hodge MD Date of Service: 02/26/25 Procedure(s): US abdomen complete Accession Number(s): [id number] cc: Ilir Hodge MD CLINICAL HISTORY: ABD [...] 02/27/25 1133 DD/ 1132 TD/TT: 02/27/25 1132 Underwriting Account Representative: [facility] [address] [place] [address] [place] [address] Ultrasound Report Signed Patient: Janee Sifuentes MR#: [id number] 93 : 1960 Acct:[id number] Age/Sex: 64 / F ADM Date: 02/26/25 [facility] Dr: Ilir Hodge MD Ordering Physician: Ilir Hodge MD Date of Service: 02/26/25 Procedure(s): US abdomen complete Accession Number(s): [id number] cc: Ilir Hodge MD CLINICAL HISTORY: AB [...] 02/27/25 1133 DD/ 1132 TD/TT: 02/27/25 1132 Underwriting Account Representative: Glucose, Whole Blood Reviewed date:05/21/2025 10:53:55 AM Interpretation: Performing Lab:[facility], [address] [place] [phone] Notes/Report: Glucose, Whole Blood 235 60-115 mg/dL METER #: [id number] Testing performed in the [facility] , [address], [facility]. Complete Blood Count Auto Di ff Reviewed date:06/14/2025 07:36:11 AM Interpretation: Performing Lab:[facility], [address] [place] [phone] Notes/Report: White Blood Count 12.0 4.8-10.8 X10*3/uL [...] Dif Reviewed date:06/14/2025 07:36:23 AM Interpretation: Performing Lab:[facility], [address] [place] [phone] Notes/Report: White Blood Count 11.2 4.8-10.8 X10*3/uL [...] (0-2) Ovalocytes 1+ (5-14) Toxic Vacuolation PRESENT Moody Cells 1+ (0-2) Comprehensive Met. Panel Reviewed date:06/14/2025 07:36:41 AM Interpretation: Performing Lab:[facility], [address] [place] [phone] Notes/Report: Sodium 145 135-145 mmol/L Potassium 4.1 [...] REVIEW Reviewed date:06/14/2025 07:36:49 AM Interpretation: Performing Lab:[facility], [address] [place] [phone] Notes/Report: SLIDE REVIEW VERIFIED Type and Screen Reviewed date:06/14/2025 07:36:57 AM Interpretation: Performing Lab:[facility], [address] [place] [phone] Notes/Report: mL/HR Rate to transfuse BBK Product 100 Results at Issue Units as of 06/14/25212 ... Test View Group: Most Recent Platelet Count LABORATORY Date Time Test Result Flag Normal Range 06/13/25 2316 PLT 24 # L 160-400 X10*3/uL Plt <10,000 No Blood Type OP Antibody Screen NEGATIVE Pheresis Platelets Reviewed date:06/14/2025 07:37:07 AM Interpretation: Performing Lab:[facility], [address] [place] [phone] Notes/Report: Pheresis Platelets [id number] OP PHPLT Pheresis Platelets TRANSFUSED 06/14/25211 Complete Blood Count Auto Di ff Reviewed date:06/15/2025 12:31:04 PM Interpretation: Performing Lab:[facility], [address] [place] [phone] Notes/Report: White Blood Count 11.1 4.8-10.8 X10*3/uL [...] Dehydrogenase Reviewed date:06/15/2025 12:30:39 PM Interpretation: Performing Lab:[facility], [address] [place] [phone] Notes/Report: Lactate Dehydrogenase 320 122-220 U/L Luis A Garza Reviewed date:07/19/2025 04:47:30 PM Interpretation: Performing Lab:[facility], [address] [place] [phone] Notes/Report: Luis A Garza See Note Specimen held untested for 24 hours; Call to request Chemistry testing. Reason For Referral Reason Hives of unknow orig in Diagnosis 1 Hives of unknown gregg gin (L50.9) Referral Organization Ilir Hodge MD Referring Provider First Name Ilir Referring Provider Last Name Ayesha Referring Provider Speciality Internal edicine Referred Provider COREY CHAND Referred Provider Specialty Allergy/Immu nology General Notes Penny Saenz 11:58:48 AM EST > info faxed to the [facility] office p [phone] f [phone] they will call patient with an appt, [...] 03:03:49 PM > appt is in the [place] office, patient is aware of appointment Referral Priority Routine Referral Appointment Date 12/13/2024 Medications Medication SIG (Take, Route, Frequency, Duration) Notes Start Date End Date Status HumaLOG KwikPen 100 UNIT/ML 60 units Subcutaneous Active Clobetasol Propionate 0.05 % 1 application Externally Twice a day for 10 day(s) 03/10/2021 Active Hydrocod Juan Carlos-Chlorphe Juan Carlos ER 10-8 MG/5ML 5 mL as needed Orally every 12 hrs Partial Fill upon Patient Request 05/14/2025 Active Aspir-Low 81 MG 1 tablet Orally [...] for 5 days 05/15/2022 Not-Taking Vitamin D3 125 MCG (5000 UT) 1 tablet Orally Once a day 11/05/2017 Active predniSONE 20 MG 2.5 tabs QD Orally Once a day Active Albuterol Sulfate HFA 108 (90 Base) MCG/ACT 2 puffs as needed Inhalation every 4 hrs Active Sertraline HCl 100MG take 1 tablet by mouth once daily for 90 days Orally Once a day Active Vitamin D3 50 MCG (2000 UT) 1 capsule Orally Once a day for 30 day(s) 01/01/2022 Not-Taking Symbicort 160-4.5 MCG/ACT 2 puffs Inhalation twice a day 11/13/2024 Active Ibuprofen 800 MG 1 tablet with food or milk as needed Orally Three times a day 09/01/2019 Not-Taking Valtrex 1 GM 1 tablet Orally 3 times a day for 7 days 12/17/2020 Not-Taking Valsartan-hydroCHLOR Othiazide 320-25 MG 1 tablet Orally Once a day for 30 days 07/19/2025 Active Montelukast Sodium 10 MG 1 tablet Orally Once a day 12/28/2024 Active Ipratropium-Albutero l 0.5-2.5 (3) MG/3ML 3 mL as needed Inhalation every 6 hrs 12/28/2024 Active Immunizations Vaccine Route Administration Date Status Commjignesh nts Fluarix Quadrivalent IM Intramuscular 05/28/2014 Adminguilhermee red Flu Vaccine IM Intramuscular 05/24/2015 Administered [...] 11/01/2020 Administered Moderna TDaP Unknown 12/05/2020 Administered Luis'S PPSV23 (Pnemovax) IM Intramuscular 03/10/2021 Administered Fluarix [...] Problem Status W/U Status Risk Notes Problem 912154264 Type 2 diabetes mellitus without complications (E11.9) Active confirmed Problem Thrombocytopenia (712167184) Thrombocytopenia (D69.6) Active confirmed Problem 62335005 Lymphocytosis (D72.820) Active confirmed Problem 28421797 Depression (F32.9) Active confirmed Problem 99781861 Vitamin D defici ency (E55.9) Active confirmed Problem 098710987 Diverticulitis (K57.92) Active confirmed Problem 858067080 Mild intermitten t asthma, uncomplicated (J45.20) Active confirmed Problem 268901764 Other specified menopausal and perimenopausal disorders (N95.8) Active confirmed Problem 606666804 Encounter for screening for other protozoal diseases and helminthiases (Z11.6) Active confirmed Problem 169997682 Asymptomatic menopausal state (Z78.0) Active confirmed Problem 23627139 Essential hypert ension (I10) Active confirmed Problem Interstitial lung disease (527209731) Interstitial lung disease (J84.9) Active confirmed Problem 33691278 Dysthymia (F34.1) Active confirmed Problem 37661894 Sciatica of righ t side (M54.31) Active confirmed Problem 223344578 Pure hypercholesterolemia (E78.00) Active confirmed Problem 541190354 Hypertensive cri sis (I16.9) Active confirmed Problem Computed tomography result abnormal (111086368) Abnormal CAT scan (R93.89) Active confirmed Problem 75542277 Kidney stone on left side (N20.0) Active confirmed Problem Abdominal mass (finding) (354282952) Abdominal mass of other site (R19.09) Active confirmed Problem 161035321 Screening mammog osiris for breast cancer (Z12.31) Active confirmed Problem Urticaria (475387851) Hives of unknown origin (L50.9) Active confirmed Vital Signs Blood pressure diastolic 84 mm Hg 07/19/2025 Height 64 in 07/19/2025 Blood pressure systolic 162 mm Hg 07/19/2025 Weight 254 lbs 07/19/2025 BMI 43.59 kg/m2 07/19/2025 Encounters Encounter Location Date Provider Diagnosis Ilir Hodge MD [address] [place] [id number] 01/08/2025 Ilir Hodge Blood tests for rout ine general physical examination Z00.00 ; Essential hypertension I10 ; Pure hypercholesterolemia E78.00 ; Type 2 diabetes mellitus without complications E11.9 and Vitamin D deficiency E55.9 Ilir Hodge MD [address] [place] [id number] 07/19/2025 Ilir Hodge Pure hypercholestero lemia E78.00 and Type 2 diabetes mellitus without complications E11.9 Ilir Hodge MD [address] [place] [id number] 07/19/2025 Ilir Hodge Essential hypertensi on I10 and Mild intermittent asthma, uncomplicated J45.20 Ilir Hodge MD [address] [place] [id number] 08/14/2024 Ilir Hodge Type 2 diabetes piter itus without complications E11.9 ; Hypertensive crisis I16.9 and Hives of unknown origin L50.9 Ilir Hodge MD [address] [place] [id number] 08/25/2024 Ilir Hodge Type 2 diabetes piter itus without complications E11.9 ; Hives of unknown origin L50.9 and Essential hypertension I10 Ilir Hodge MD [address] [place] [id number] 09/07/2024 Ilir Hodge Type 2 diabetes piter itus without complications E11.9 and Hives of unknown origin L50.9 Ilir Hodge MD [address] [place] [address] [id number] 11/06/2024 Ilir Hodge Type 2 diabetes piter itus without complications E11.9 and Mild intermittent asthma, uncomplicated J45.20 Ilir Hodge MD [address] [place] [address] [id number] 11/13/2024 Ilir Hodge Bronchitis J40 Ilir Hodge MD [address] [place] [address] [id number] 11/27/2024 Ilir Hodge Persistent cough for 3 weeks or longer R05.3 ; Type 2 diabetes mellitus without complications E11.9 and Essential hypertension I10 Ilir Hodge MD [address] [place] [address] [id number] 12/28/2024 Ilir Hodge Type 2 diabetes piter itus without complications E11.9 and Mild intermittent asthma, uncomplicated J45.20 Ilir Hodge MD [address] [place] [address] [id number] 01/15/2025 Ilir Hodge Annual physical exam Z00.00 ; Abdominal mass of other site R19.09 ; Mild intermittent asthma, uncomplicated J45.20 ; Hives of unknown origin L50.9 ; Essential hypertension I10 ; Depression F32.9 ; Type 2 diabetes mellitus without complications E11.9 and Depression screening Z13.31 Ilir Hodge MD [address] [place] [address] [id number] 02/19/2025 Ilir Hodge Hives of unknown gregg gin L50.9 ; Essential hypertension I10 ; Type 2 diabetes mellitus without complications E11.9 and Persistent cough R05.3 Ilir Hodge MD [address] [place] [address] [id number] 03/22/2025 Ilir Hodge Abnormal CAT scan R9 3.89 and Cough R05.9 Ilir Hodge MD [address] [place] [address] [id number] 05/14/2025 Ilir Hodge Type 2 diabetes piter itus without complications E11.9 and Cough in adult R05.9 Ilir Hodge MD [address] [place] [address] [id number] 06/14/2025 Ilir Hodge Abnormal CAT scan R9 3.89 ; Thrombocytopenia D69.6 ; Type 2 diabetes mellitus without complications E11.9 and Cough in adult R05.9 Ilir Hodge MD [address] [place] [address] [id number] 06/28/2025 Ilir Hodge Interstitial lung di sease J84.9 ; Thrombocytopenia D69.6 ; Cough in adult R05.9 ; Essential hypertension I10 and Hives of unknown origin L50.9 Ilir Hodge MD [address] [place] [address] [id number] 03/05/2025 Ilir Hodge MD [address] [place] [address] [id number] 06/14/2025 Ilir Hodge Interstitial lung di sease J84.9 Ilir Hodge MD [address] [place] [address] [id number] 06/18/2025 Ilir Hodge Assessments Encounter Date Diagnosis (ICD Code) Assessment Notes Treatment Notes Treatment Clinical Notes Section Notes 01/08/2025 Blood tests for routine general physical examination (ICD-10 - Z00.00) 07/19/2025 Pure hypercholesterolemia (ICD-10 - E78.00) 07/19/2025 Essential hypertensi on (ICD-10 - I10) patient verbalized understandng of medication and directions for use 08/14/2024 Type 2 diabetes mellitus without complications [...] (ICD-10 - L50.9) is going to see laundry agent in one month. 11/06/2024 Type 2 diabetes [...] diagnostic testing, THE ORDER WAS FAXED TO [facility], 02/19/2025 Hives of unknown origin [...] hematology tomorrow./ US scan order faxed to [facility] 06/28/2025 Interstitial lung disease (ICD-10 - J84.9) feel as though she should go to [facility] 06/28/2025 Thrombocytopenia (ICD-10 - D69.6) is doing better followed by dr cedillo/ awaiting the us of the abdomen/ US order faxed to [facility] 06/14/2025 Interstitial lung disease (ICD-10 - J84.9) CT Chest due 01/08/2025 Essential hypertensi on (ICD-10 - I10) 07/19/2025 Type 2 diabetes mellitus without complications (ICD-10 - E11.9) 07/19/2025 Mild intermittent asthma, uncomplicated (ICD-10 - J45.20) stable, will continue current regiment 08/14/2024 Hives of unknown origin [...] well with pump, will continue current regiment 06/28/2025 Cough in adult (ICD- 10 - R05.9) should go to [facility]./ spoke with patient, she wants to discuss this again at her next visit in 4 weeks 01/08/2025 Pure hypercholesterolemia (ICD-10 - E78.00) 11/27/2024 Essential hypertensi on (ICD-10 - I10) running a little high today, will contiue curent regiment and will contiue to monitor 01/15/2025 Hives of unknown origin (ICD-10 - L50.9) waiting for allergy consultt 02/19/2025 Persistent cough (ICD-10 - R05.3) have suggested going to [facility] 06/14/2025 Type 2 diabetes mellitus without complications (ICD-10 - E11.9) is doing fairly well even on steroids 06/28/2025 Essential hypertensi on (ICD-10 - I10) 01/08/2025 Type 2 diabetes mellitus without complications (ICD-10 - E11.9) 01/15/2025 Essential hypertensi on (ICD-10 - I10) stable, will continue current regiment 06/14/2025 Cough in adult (ICD- 10 - R05.9) prednisone no longer helping cough 06/28/2025 Hives of unknown origin (ICD-10 - L50.9) 01/08/2025 Vitamin D deficiency (ICD-10 - E55.9) [...] need to speak to dr reeves at [facility] about her chest ct/ Will call [facility] [...] 01/05/2023 Next Appt Details Provider Name:Ilir alford, 08/03/2025 07:30:00 AM, [address] [place] [address], [address], [place], [place], [phone], Provider Name:Ilir alford, 01/11/2026 07:15:00 AM, [address] [place] [address], Suite [facility], [place], [phone], Provider Name:Ilir alford, 01/18/2026 09:30:00 AM, [address] [place] [address], Suite [facility], [place], [phone], Insurance Providers Payer Name Payer Address Payer Phone Subscriber Number Group Number Insured Name Patient Relationship to Insured Coverage Start Date Coverage End Date [employer] [address] [address] [place] [address] [id number] RADHA SIFUENTES Self - patient is the insured MEDICARE [employer] [address] [place] [id number] JANEE SIFUENTESA Self - patient is the insured Medical (General) History Medical History History ICD Code colonoscopy 2010 due in 5 ye ars; colonoscopy 04/13/[address] Georgina Philippe in 2027
== END 2025-07-19 13:21 | disposition home or self-care (01) ==
LOC: HO.LNP 13:20
PROVIDERS: Visit Provider Internal Medicine
DX: E11.9 Type 2 diabetes mellitus without complications (principal); E78.00 Pure hypercholesterolemia, unspecified
CPT/HCPCS: 80061; 80076; 82947; 83036

== ENCOUNTER 2025-08-01 11:02 | Outpatient (AMB) | payer MEDICARE, SELFPAY ==
--- OUTSIDE RECORDS SUMMARY | 2025-02-19 04:15 | XMS_ITS ---
Author Organization Ilir Hodge MD Address [address] [place] [phone] Care Team Providers Care Sports Recruiter Name Role Phone Ilir Hodge Primary Care Provider Allergies Allergen (clinical drug ingredient) Drug/Non Drug Allergy documented on EMR Reaction Allergy Type Onset Date Status dulaglutide Trulicity pancreatitis Drug Allergy Ac tive Penicillin G Benzathine hives Drug Allergy Active sulfamethoxazole / trimethoprim Bactrim low platelets Drug Allergy Active REASON FOR VISIT 4 WK F/U, C/O loss of taste and smell x 1 month Medications Medication SIG (Take, Route, Frequency, Duration) Notes Start Date End Date Status HumaLOG KwikPen 100 UNIT/ML 60 units Subcutaneous Active amLODIPine Besylate 10 MG 1 tablet Orally Once a day 10/24/2019 Active Lisinopril-hydroCHLOROth iazide 20-12.5 MG take 2 tablet by mouth once daily for 90 days Orally Once a day Active predniSONE 5 MG 1 tablet with food o r milk Orally Once a day Active Ibuprofen 800 MG 1 tablet with food o r milk as needed Orally Three times a day 09/01/2019 Not-Taking Ipratropium-Albuterol 0.5-2.5 (3) MG/3ML 3 mL as needed Inhalation every 6 hrs 12/28/2024 Active Valtrex 1 GM 1 tablet Orally 3 ti mes a day for 7 days 12/17/2020 Not-Taking Vitamin D3 50 MCG (2000 UT) 1 capsule Orally Once a day for 30 day(s) 01/01/2022 Not-Taking Paxlovid (300/100) 20 x 150 MG & 10 x 100MG 2 tabs of nirm and 1 tab sukhjinder Orally twice for 5 days 05/15/2022 Not-Taking Montelukast Sodium 10 MG 1 tablet Orally Once a day 12/28/2024 Active Symbicort 160-4.5 MCG/ACT 2 puffs Inhalation twice a day 11/13/2024 Active Albuterol Sulfate HFA 108 (90 Base) MCG/ACT 2 puffs as needed Inhalation every 4 hrs Active Sertraline HCl 100MG take 1 tablet by ak ut once daily for 90 days Orally Once a day Active Rosuvastatin Calcium 40 MG 1 tablet Orally Once a day Active Vitamin D3 125 MCG (5000 UT) 1 tablet Orally Once a day 11/05/2017 Active Clobetasol Propionate 0.05 % 1 application Externally Twice a day for 10 day(s) 03/10/2021 Active Aspir-Low 81 MG 1 tablet Orally Once a day for 30 day(s) Active Vital Signs Blood pressure systolic 192 mm Hg 02/20/20 25 Blood pressure diastolic 84 mm Hg 025 Height 64 in 02/19/2025 Weight 245 lbs 02/19/2025 BMI 42.05 kg/m2 02/19/2025 weight is up 9 pounds since 01-15-25 Encounters Encounter Location Date Provider Diagnosis Ilir Hodge MD [address] [place] [address] [place] [phone] 02/19/2025 Ilir Hodge Hives of unknown origin L50.9 ; Essential hypertension I10 ; Type 2 diabetes mellitus without complications E11.9 and Persistent cough R05.3 Assessments Encounter Date Diagnosis (ICD Code) Assessment Notes Treatment Notes Treatment Clinical Notes Section Notes 02/19/2025 Hives of unknown origin (ICD-10 - L50.9) have done well on prednisone 02/19/2025 Essential hypertension (ICD-10 - I10) was coughing, will continue current regiment 02/19/2025 Type 2 diabetes mellitus without complications (ICD-10 - E11.9) has been doing well with pump, will continue current regiment 02/19/2025 Persistent cough (ICD-10 - R05.3) have suggested going to [place] 02/19/2025 Other need to speak to dr reeves at [facility] about her chest ct/ Will call [facility] for request Plan Of Treatment Medication Medication Name Sig Start Date Stop Date Notes HumaLOG KwikPen 100 UNIT/ML 60 units Subcutaneous amLODIPine Besylate 10 MG 1 tablet Orally Once a day 10/24 Lisinopril-hydroCHLOROthiazi de 20-12.5 MG take 2 tablet by mouth once daily for 90 days Orally Once a day predniSONE 5 MG 1 tablet with food o r milk Orally Once a day Treatment Notes Assessment Notes Hives of unknown origin have done well o n prednisone Essential hypertension was coughing, karly l continue current regiment Type 2 diabetes mellitus wit hout complications has been doing well with pump, will continue current regiment Persistent cough have suggested going to [place] Other need to speak to dr reeves at [facility] about her chest ct/ Will call [facility] for request Next Appt Details Follow Up: 4 Weeks, Reason: Provider Name:Ilir alford, 08/03/2025 07:30:00 AM, [address] [place] [address], [address], [place], [place], [phone], Provider Name:Ilir alford, 01/11/2026 07:15:00 AM, [address] [place] [address], [address], [place], [place], [phone], Provider Name:Ilir alford, 01/18/2026 09:30:00 AM, [address] [place] [address], [address], [place], [place], [phone], Progress Notes * SAVANNAH SIFUENTES EDOB: [birth year] (64 yo F)Acc No.[id number]:02/19/2025 Progress Notes Patient: SAVANNAH BRAR Provider: Lizbeth Hodge MD :1960 A ge:64 Y S ex:Female Date:02/19/2025 Address:[address] [place], [place] [phone] Subjective: * Chief Complaints: * 4 WK F/UC/O loss of taste and smell x 1 month * HPI: S ymptom(s): patient is a 64 yo female here for 4 week follow up visit/ Found to have interstitial lung disease. * ROS: G eneral/Constitutional: Denies C hills. D enies F atigue. D enies F ever. D enies H eadache. E NT: Denies S ore throat. R espiratory: Admits C ough. D enies S hortness of breath at rest. D enies S hortness of breath with exertion. G astrointestinal: Denies D iarrhea. D enies N ausea. * Medical History: * Surgical History: * Hospitalization/Major Diagno stic Procedure: * Medications: T akingpredniSONE 5 MG Tablet 1 tablet with food or milk Orally Once a day Aspir- Low 81 MG Tablet Delayed Release 1 tablet Orally Once a day Clobetasol Propionate 0.05 % Cream 1 application Externally Twice a day Vitamin D3 125 MCG (5000 UT) Capsule 1 tablet Orally Once a day Rosuvastatin Calcium 40 MG Tablet 1 tablet Orally Once a day Sertraline HCl 100MG Tablet take [...] Tablet 1 tablet Orally Once a day Ipratropium-Albuterol 0.5-2.5 (3) MG/3ML Solution 3 mL as needed Inhalation every 6 hrs Montelukast Sodium 10 MG Tablet 1 tablet Orally Once a day HumaLOG KwikPen 100 UNIT/ML Solution Pen-injector 60 units Subcutaneous Taking predniSONE 5 MG Tablet 1 tablet with food or milk Orally Once a day Taking Aspir-Low 81 MG Tablet Delayed Release 1 tablet Orally Once a day Taking Clobetasol Propionate 0.05 % Cream 1 application Externally Twice a day Taking Vitamin D3 125 MCG (5000 UT) Capsule 1 tablet Orally Once a day Taking Rosuvastatin Calcium 40 MG Tablet 1 tablet Orally Once a day Taking Sertraline HCl 100MG Tablet take 1 tablet by mouth once daily for 90 days Orally Once a day Taking Albuterol Sulfate [...] 1 tablet Orally Once a day Taking Ipratropium-Albuterol 0.5-2.5 (3) MG/3ML Solution 3 mL [...] as needed Orally Three times a day Not- Taking/PRN Paxlovid (300/100) 20 x 150 MG [...] as needed Orally Three times a day DiscontinuedCefpodoxime Proxetil 200 MG Tablet 1 tablet with food Orally every 12 hrs Discontinued Cefpodoxime Proxetil 200 MG Tablet 1 tablet with food Orally every 12 hrs * Allergies: B actrim: low plateletsPenicillin G Benzathine: hivesTrulicity: pancreatitisyes[Allergies Verified] Objective: * Vitals: H t: 64, Wt: 245, BMI:42.05, BP:192/84, Repeat BP:170/88, Wt-k.13. weight is up 9 pounds since 01-15-25. * Examination: G eneral Examination: GENERAL APPEARANCE: w ell developed, well nourished. HEAD: n ormocephalic. SKIN: g ood turgor. HEART: g rade 2/6 systolic murmur at left sternal border.? LUNGS: n o wheezes, rales, rhonchi, good air movement, clear to auscultation bilaterally. Assessment: * Assessment: 1. H nestor of unknown origin - L50.9 (Primary) 2 . E ssential hypertension - I10 3 . T ype 2 diabetes mellitus without complications - E11.9 ?4. P ersistent cough - R05.3 Plan: * Treatment: 2. E ssential hypertension Continue Lisinopril-hydroCHLOROthiazide Tablet, 20-12.5 MG, take 2 tablet by mouth once daily for 90 days, Orally, Once a day; C ontinue amLODIPine Besylate Tablet, 10 MG, 1 tablet, Orally, Once a day. Notes: was coughing, will continue current regiment 3. T ype 2 diabetes mellitus without complications Continue HumaLOG KwikPen Solution Pen-injector, 100 UNIT/ML, 60 units, Subcutaneous. Notes: has been doing well with pump, will continue current regiment 4. P ersistent cough Notes: have suggested going to [place] 5. O thers Notes: need to speak to dr reeves at [facility] about her chest ct/ Will call [facility] for request ? * Procedure Codes: * Follow Up: 4 Weeks * * Sign off status: Completed true * Provider: Lizbeth Hodge MD Date: 0 02/19/2025 Generated for Valentin medina/Alexia/Amberitting on: 1 10/02/2024 01:06 PM EST History and Physical Notes * HPI (History of Present Illness) Category Sub-Category Detail Notes Category Not es Symptom(s) patient is a 64 yo female here for 4 week follow up visit/ Found to have interstitial lung disease Examination Category Sub-Category Detail Notes Category Not es General Examination GENERAL APPEARANCE: well developed , well nourished HEAD: normocephalic HEART: grade 2/6 systolic m urmur at left sternal border LUNGS: no wheezes, rales, r honchi, good air movement, clear to auscultation bilaterally SKIN: good turgor
--- OUTSIDE RECORDS SUMMARY | 2025-03-05 06:24 | XMS_ITS ---
Author Organization Ilir Hodge MD Address [address] [place] [phone] Care Team Providers Care Vendor Analyst Name Role Phone Ilir Hodge Primary Care Provider Encounters Encounter Location Date Provider Diagnosis Ilir Hodge MD [address] [place] [phone] 03/05/2025 Ilir Hodge Plan Of Treatment Next Appt Details Provider Name:Ilir laford, 08/03/2025 07:30:00 AM, [address], [address], [place], [place], [phone], Provider Name:Ilir alford, 01/11/2026 07:15:00 AM, [address], [address], [place], [place], [phone], Provider Name:Ilir Forrester ier, 01/18/2026 09:30:00 AM, [address], [address], [place], [place], [phone], Progress Notes * SAVANNAH SIFUENTES EDOB: (64 yo F)Acc No.[id number]:03/05/2025 Patient: Janine SAVANNAH MEJIA :1960 A ge:64 Y S ex:Female Address:[address] [place] [address] ERNESTINE Hilario, [address] * true * Date: Generated for Valentin medina/Alexia/Majorsmitting on: 10/02/2024 01:07 PM EST
--- OUTSIDE RECORDS SUMMARY | 2025-03-22 06:30 | XMS_ITS ---
Author Organization Ilir Hodge MD Address [address] [place] [phone] Care Team Providers Care Guard Entrance Registrar Name Role Phone Ilir Hodge Primary Care [...] Risk Notes Problem Computed tomography result abnormal ([id number]) Abnormal CAT scan (R93.89) Active confirmed Vital Signs Blood pressure systolic 132 mm Hg 03/22/20 25 Blood pressure diastolic 86 mm Hg 025 Height 64 in 03/22/2025 Weight 245 lbs 03/22/2025 BMI 42.05 kg/m2 03/22/2025 Encounters Encounter Location Date Provider Diagnosis Ilir Hodge MD [address] [place] [address] [place] [phone] 03/22/2025 Ilir Hodge Abnormal CAT scan R93.89 [...] 08/03/2025 07:30:00 AM, [address], [address], [place], [place], [phone], Provider Name:Ilir alford, 01/11/2026 07:15:00 AM, [address] [facility] [address], [address], [place], [phone], Provider Name:Ilir Alfonso Usama alfrod, 01/18/2026 09:30:00 AM, [address] [place] [address] Drive, [address], [place], [place], [phone], Progress Notes * SAVANNAH SIFUENTES EDOB: 9 (64 yo F)Acc No.[id number]:03/22/2025 Progress Notes Patient: SAVANNAH BRAR Provider: Lizbeth Hodge MD :1960 A ge:64 Y S ex:Female Date:03/22/2025 Address:[address] [place] [address] wale Hilario, [id number] Subjective: * Chief Complaints: * 4 week * HPI: S ymptom(s): patient is a 64 yo female here for 4 weel follow up visit/ still coughing. going to see supervisor policy change clerks. * ROS: G eneral/Constitutional: Denies C hills. [...] 0 03/22/2025 Generated for Valentin medina/Alexia/Amberitting on: 10/02/2024 01:05 PM EST History and Physical Notes * HPI (History of Present Illness) Category Sub-Category Detail Notes Category Not es Symptom(s) patient is a 64 yo female here for 4 weel follow up visit/ still coughing. going to see supervisor policy change clerks Examination Category Sub-Category Detail Notes Category Not es General Examination GENERAL APPEARANCE: alert, w ell hydrated, in no distress HEART: regular rate and rhy thm, no murmurs, rubs, gallops LUNGS: clear to auscultatio n bilaterally, good air movement, no wheezes, rales, rhonchi SKIN: good turgor
--- OUTSIDE RECORDS SUMMARY | 2025-05-14 04:00 | XMS_ITS ---
Author Organization Ilir Hodge MD Address [address] [place] [phone] Care Team Providers Care Electrician Wiring Name Role Phone Ilir Hodge Primary Care [...] Location Date Provider Diagnosis Ilir Hodge MD [address] [place] [address] [place] [phone] 05/14/2025 Ilir Hodge Type 2 diabetes mellitus [...] Date Stop Date Notes Hydrocod Juan Carlos-Chlorphe Jua Ncarlos ER 10-8 MG/5ML 5 mL as needed [...] Reason: Provider Name:Ilir alford, 08/03/2025 07:30:00 AM, [address] [place] [address], [address], [phone], Provider Name:Ilir Alfonso Usama alford, 01/11/2026 07:15:00 AM, [address] [place] [address], [address], [phone], Provider Name:Ilir alford, 01/18/2026 09:30:00 AM, [address] [place] [address], [address], [phone], Progress Notes * SAVANNAH SIFUENTES EDOB: (64 yo F)Acc No.[id number]:05/14/2025 Progress Notes Patient: SAVANNAH BRAR Provider: Lizbeth Hodge MD :1960 A ge:64 Y S ex:Female Date:05/14/2025 Address:[address] [place], [place] [address], [place] Subjective: * Chief Complaints: * 2 monthPatient [...] 05/14/2025 Generated for Valentin medina/Alexia/Amberitting on: 1 10/02/2024 01:07 PM EST History and Physical Notes * [...]
--- OUTSIDE RECORDS SUMMARY | 2025-06-14 02:30 | XMS_ITS ---
Author Organization Ilir Hodge MD Address [address] [place] [phone] Care Team Providers Care Dairy Supplies Sales Representative Name Role Phone Ilir Hodge [...] Status W/U Status Risk Notes Problem Thrombocytopenia (106229779) Thrombocytopenia (D69.6) Active confirmed Vital Signs Blood pressure systolic 192 mm Hg 06/14/20 25 Blood pressure diastolic 98 mm Hg 025 Height 64 in 06/14/2025 Weight 251 lbs 06/14/2025 BMI 43.08 kg/m2 06/14/2025 weight is up 5 pounds since 05-14-25 Encounters Encounter Location Date Provider Diagnosis Ilir Hodge MD [address] [place] [address] [place] [phone] 06/14/2025 Ilir Hodge Abnormal CAT scan R93.89 [...] hematology tomorrow./ US scan order faxed to [facility] dept 06/14/2025 Type 2 diabetes mellitus [...] to genesis./ US scan order faxed to [facility] dept Type 2 diabetes mellitus without complic ations is doing fairly well even on steroids Cough in adult prednisone no longer helping cough Pending Test Test Name Order Date US ABD 06/14/2025 Next Appt Details Follow Up: 2 Weeks, Reason: Provider Name:Ilir alford, 08/03/2025 07:30:00 AM, [address] [place] [address], [address] [place] [address], [phone], Provider Name:Ilir alford, 01/11/2026 07:15:00 AM, [address] [place] [address], [address] [place] [address], [phone], Provider Name:Ilir alford, 01/18/2026 09:30:00 AM, [address] [place] [address], [address] [place] [address], [phone], Progress Notes * SAVANNAH SIFUENTES EDOB: 9 (65 yo F)Acc No.[id number]:06/14/2025 Progress Notes Patient: SAVANNAH BRAR Provider: Lizbeth Hodge MD :1960 A ge:65 Y S ex:Female Date:06/14/2025 Address:[address] [place] [address] wale Hilario, [id number] Subjective: * Chief Complaints: * 1 MO [...] hematology tomorrow./ US scan order faxed to [facility] dept 3. T ype 2 diabetes mellitus without complications Notes: is doing fairly well even on steroids 4. C ough in adult Notes: prednisone no longer helping cough * Procedure Codes: * Follow Up: 2 Weeks * * Sign off status: Completed true * Provider: Lizbeth Hodge MD Date: Generated for Valentin medina/Alexia/Aries on: 10/02/2024 01:07 PM EST History and Physical [...]
--- OUTSIDE RECORDS SUMMARY | 2025-06-14 07:39 | XMS_ITS ---
Author Organization Ilir Hodge MD Address [address] [place] [phone] Care Team Providers Care Rural Health Consultant Name Role Phone Ilir Hodge Primary Care Provider REASON FOR VISIT Chest CT Scan due Encounters Encounter Location Date Provider Diagnosis Ilir Hodge MD [address] [place] [phone] 06/14/2025 Ilir Hodge Interstitial lung disease J84.9 Assessments Encounter Date Diagnosis (ICD Code) Assessment Notes Treatment Notes Treatment Clinical Notes Section Notes 06/14/2025 Interstitial lung disease (ICD-10 - J84.9) CT Chest due Plan Of Treatment Treatment Notes Assessment Notes Interstitial lung disease CT Chest due Pending Test Test Name Order Date CT chest wo con 06/14/2025 Next Appt Details Provider Name:Ilir Forrester ier, 08/03/2025 07:30:00 AM, [address], [address], [place], [place], [phone], Provider Name:Ilir Forrester ier, 01/11/2026 07:15:00 AM, [address], [address], [place], [place], [phone], Provider Name:Ilir Forrester ier, 01/18/2026 09:30:00 AM, [address], [address], [place], [place], [phone], Progress Notes * SAVANNAH SIFUENTES EDOB: (65 yo F)Acc No.[id number]:06/14/2025 Patient: Janine SAVANNAH MEJIA :1960 A ge:65 Y S ex:Female Address:[address] [place] [address], [address] Subjective: * Chief Complaints: * C hest CT Scan due * Medical History: * Surgical History: * Hospitalization/Major Diagno stic Procedure: * Medications: Objective: * Vitals: * Physical Examination: Assessment: * Assessment: 1. I nterstitial lung disease - J84.9 Plan: * Treatment: * Procedure Codes: * true * Date: Generated for Valentin medina/Alexia/eTyunielsmitting on: 10/02/2024 01:07 PM EST
--- OUTSIDE RECORDS SUMMARY | 2025-06-18 09:38 | XMS_ITS ---
Author Organization Ilir Hodge MD Address [address] [place] [phone] Care Team Providers Care Game Developer Name Role Phone Ilir Hodge Primary Care Provider REASON FOR VISIT ER Encounters Encounter Location Date Provider Diagnosis Ilir Hodge MD [address] [place] [phone] 06/18/2025 Ilir Hodge Plan Of Treatment Next Appt Details Provider Name:Ilir alford, 08/03/2025 07:30:00 AM, [address], [address], [place], [place], [phone], Provider Name:Ilir alford, 01/11/2026 07:15:00 AM, [address], [address], [place], [phone], Provider Name:Ilir Forrester ier, 01/18/2026 09:30:00 AM, [address], [address], [place], [place], [phone], Progress Notes * SAVANNAH SIFUENTES EDOB: (65 yo F)Acc No.[id number]:06/18/2025 Patient: Janine SAVANNAH MEJIA :1960 A ge:65 Y S ex:Female Address:[address] [place] [address] [place] Hilario, [address] * true * Date: Generated for Valentin medina/Alexia/Majorsmitting on: 10/02/2024 01:06 PM EST
--- OUTSIDE RECORDS SUMMARY | 2025-07-19 02:15 | XMS_ITS ---
Author Organization Ilir Hodge MD Address [address] [place] [phone] Care Team Providers Care Asphalt Plant Operator Name Role Phone Ilir Hodge Primary Care Provider Results Component Value Reference Range Notes Liver Panel Reviewed date:07/19/2025 04:49:58 PM Interpretation: Performing Lab:[facility], [address] [place] [phone] Notes/Report: Bilirubin Total 1.3 0.0-1.0 mg/dL Bilirubin Direct 0.5 0.0-0.5 mg/dL Aspartate Amino Transferase 35 5-31 U/L Alanine Aminotransferase 44 0-31 U/L Total Protein 6.4 6.5-8.0 g/dL Albumin Level 4.0 3.5-5.0 g/dL Alkaline Phosphatase 70 39-117 U/L Glucose Fasting Reviewed date:07/19/2025 04:50:07 PM Interpretation: Performing Lab:[facility], [address] [place] [phone] Notes/Report: Glucose Fasting 82 60-99 mg/dL Lipid Panel with Reflex Reviewed date:07/19/2025 04:48:06 PM Interpretation: Performing Lab:[facility], [address] [place] [phone] Notes/Report: Triglycerides 70 <150 mg/dL Desirable Triglyceride: less than 150 mg/dL Borderline High Triglyceride 150-199 mg/dL High Triglyceride: 200-499 mg/dL Very High Triglyceride: greater than or equal to 5OO mg/dL Cholesterol 104 <200 mg/dL Desirable Cholesterol: less than 200 mg/dL Borderline High Cholesterol: 200-239 mg/dL High Cholesterol: greater than 239 mg/dL LDL Cholesterol Calculated 18 <100 mg/dL Desirable LDL: less than 100 mg/dL Near Optimal/Above Optimal LDL: 110-129 mg/dL Borderline High LDL: 130-159 mg/dL High LDL: 160-189 mg/dL Very High LDL: greater than or equal to 190 mg/dL HDL Cholesterol 72 >40 mg/dL Desirable HDL: greater than 40 mg/dL Note: This HDL assay may give artificially low results in patients with liver disease. Hemoglobin A1c Reviewed date:07/19/2025 04:48:20 PM Interpretation: Performing Lab:[address] [phone] Notes/Report: Hemoglobin A1c % 6.7 <6.0 % [...] average glucose, using the formula of the J6O-Indorwj Average Glucose study (ADAG), Diabetes Care, Vol.31,#8, Mar. 2007 REASON FOR VISIT FASTING LIPIDS Encounters Encounter Location Date Provider Diagnosis Ilir Hodge MD [address] [place] [phone] 07/19/2025 Ilir Hodge Pure hypercholestero lemia E78.00 and Type 2 diabetes mellitus without complications E11.9 Assessments Encounter Date Diagnosis (ICD Code) Assessment Notes Treatment Notes Treatment Clinical Notes Section Notes 07/19/2025 Pure hypercholesterolemia (ICD-10 - E78.00) 07/19/2025 Type 2 diabetes piter itus without complications (ICD-10 - E11.9) Plan Of Treatment Next Appt Details Provider Name:Ilir alford, 08/03/2025 07:30:00 AM, Hospital [facility], Suite [facility], [place], [place], [phone], Provider Name:Ilir alford, 01/11/2026 07:15:00 AM, [address] [place] [address], [address] [place] [address], [phone], Provider Name:Ilir alford, 01/18/2026 09:30:00 AM, [address] [place] [address], [address] [place] [address], [phone], Progress Notes * SAVANNAH SIFUENTES EDOB: (65 yo F)Acc No.[id number]:07/19/2025 Progress Note Patient: SAVANNAH BRAR Provider: Lizbeth Hodge MD :1960 A ge:65 Y S ex:Female Date:07/19/2025 Address:[address] [place] [address] [id number] Subjective: * Chief Complaints: * 1 . FASTING LIPIDS. * Medical History: Objective: * Vitals: Assessment: * Assessment: 1. P ure hypercholesterolemia - E78.00 (Primary) 2 . T ype 2 diabetes mellitus without complications - E11.9 Plan: * Treatment: 2. T ype 2 diabetes mellitus without complications L AB: Liver Panel (Collection Date & Time - 07/19/2025 07:15 AM) L AB: Glucose Fasting (Collection Date & Time - 07/19/2025 07:15 AM) L AB: Lipid Panel with Reflex (Collection Date & Time - 07/19/2025 07:15 AM) L AB: Hemoglobin A1c (Collection Date & Time - 07/19/2025 07:15 AM) * Procedure Codes: 3 6415 VENIPUNCT, ROUTINE* * * The named appointment provid er may or may not be the originator of this progress note, and it is not deemed complete until electronically signed by the appointment provider. Sign off status: Pending * Provider: Lizbeth Hodge MD Date: 1 09/18/2024 Generated for Valentin medina/Alexia/Amberitting on: 10/02/2024 01:05 PM EST
--- OUTSIDE RECORDS SUMMARY | 2025-07-19 02:30 | XMS_ITS ---
Author Organization Ilir Hodge MD Address [address] [place] [phone] Care Team Providers Care Centrifugal Drier Operator Name Role Phone Ilir Hodge Primary [...] Location Date Provider Diagnosis Ilir Hodge MD [address] [place] [address] [address] [place], [place] [phone] 07/19/2025 Ilir Hodge Essential hypertension I10 and [...] Reason: Provider Name:Ilir alford, 08/03/2025 07:30:00 AM, [address] [place] [address], [address], [phone], Provider Name:Ilir alford, 01/11/2026 07:15:00 AM, [address] [place] [address], [address], [phone], Provider Name:Ilir alford, 01/18/2026 09:30:00 AM, [address] [place] [address], [address], [phone], Progress Notes * SAVANNAH SIFUENTES EDOB: (65 yo F)Acc No.[id number]:07/19/2025 Patient: Janine FLORESITAAJNEE BRYANTLokesh Watson Provider: Lizbeth Hodge MD :1960 A ge:65 Y S ex:Female Date:07/19/2025 Address:[address] [place] [address] [place]io [phone] Subjective: * Chief Complaints: * 1 . [...] Date: 09/18/2024 Generated for Valentin medina/Alexia/eTyunielsmitting on: 10/02/2024 01:06 PM EST History and Physical [...]
[2025-08-01 11:03] VITALS: BP 158/100; PULSE 84; O2SAT 96; BMI 45.9
--- NOTE | 2025-08-01 11:03 | A.OFFVIS_ITS ---
Vital Signs 08/01/25 11:03 Height 5 ft 3 in Weight 259 lb 4 oz BMI 45.9 BP 158/100 H Blood Pressure Location Rt brachial Position Sitting Pulse 84 Pulse Source Pulse Oximeter Pulse Oximetry (%) 96 Oxygen Delivery Method Room Air Intake Visit Reasons: bronchitis Allergies Penicillins (PENICILLINS) Allergy (Severe, Verified 08/01/25 11:05) RASH Sulfa (Sulfonamide Antibiotics) (SULFA (SULFONAMIDE ANTIBIOTICS)) Allergy (Severe, Verified 08/01/25 11:05) THROMBOCYTOPENIA, severe penicillin V Allergy (Unknown, Verified 08/01/25 11:05) rash HPI HPI bronchitis: Details: Radha is a pleasant 65 year old female, never smoker, with underlying ILD, elevated VARUN, DMII h/o DKA, HTN and HLD. She was initially referred for persistent dry hacking cough for the past year. Chest CT 11/2024 suggestive of evolving ILD of RLL, initially report read as unremarkable however an addendum made on CT stating subtle areas of peripheral groundglass appearance RIGHT lower lobe. We had previously discussed this finding in addition to elevated VARUN being suggestive of an ILD. Given elevated VARUN patient was referred to Rheumatology and has an upcoming appt in August. She had resolution of cough with short course of prednisone initially however recurred shortly after cessation. She was initially reluctant to start prednisone at higher doses, agreeable to lower than recommended dosing of prednisone 40 mg x 5 weeks with 50% improvement in cough although repeat imaging revealed new area of RUL consolidation suggestive of pneumonia, with resolution of prior RLL ggo. She did note chest tightness/congestion resolved with a course of Levaquin. At the last visit she was started on prednisone 50 mg which is the recommended dose based on weight, and has had 75% or more improvement in cough. She does note an increase in cough over the last few days which she attributes to a cold as she has some nasal congestion with associated productive cough responding to mucinex and roommate with similar symptoms. Denies fevers, chills. 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 HLD (hyperlipidemia) Hypertension Asthma Nephrolithiasis Diabetes Surgical History History of knee replacement Family History Family/Other No known health problems Father Kidney failure Social History Household Members: Spouse and None Housing: House Do you presently have visiting nurse or other home services: No Alcohol intake: current Alcohol intake frequency: a few times a month Alcohol type: beer and wine Patient Tobacco Use Status: Never used Tobacco service: No Current occupational status: employed Review of Systems Const Denies chills, Denies excessive sweating, Denies fever(s), Denies headache(s) an d Denies night sweats Eyes Denies dry eyes, Denies irritation and Denies itchy eyes ENT Reports Normal hearing present, Denies headache(s), Denies nasal congestion, Denies nasal discharge, Denies post nasal drip and Denies sore throat Card Denies chest pain, Denies chest pain at rest, Denies chest pain with activity, Denies claudication, Denies leg edema, Denies orthopnea and Denies paroxysmal nocturnal dyspnea Resp Denies change in phlegm color, Denies chest congestion, Reports cough, Denies he moptysis, Denies excessive phlegm production, Denies pain on inspiration, Denies pain with cough, Denies stridor and Reports wheezing Musc Denies myalgias Neuro Reports Normal hearing present and Denies headache(s) Endo Denies excessive sweating Wero/Lymph Denies lymphadenopathy Aller/Immun Denies itchy eyes, Denies seasonal rhinorrhea and Reports wheezing Physical Exam Vital Signs: Last Vital Signs Pulse 84 08/01/25 11:03 BP 158/100 H 08/01/25 11:03 Pulse Ox 96 08/01/25 11:03 Oxygen Delivery Method Room Air 08/01/25 11:03 BMI result Body Mass Index 45.9 Const General: cooperative, healthy appearing, comfortable, no acute distress, well developed and alert Nutritional Appearance: obese Orientation/consciousness: patient oriented x3 Limitations: no limitations HEENT Head: Yes normal to inspection, Yes normocephalic and Yes atraumatic Ears: hearing grossly normal bilaterally and external ears normal Eyes General: appearance normal, both eyes and all related structures Eyelids: Yes eyelids normal Sclerae: sclerae normal EOM: EOMs intact bilaterally Neck Neck: Yes normal visual inspection and Yes no lymphadenopathy Lymphatic: no lymphadenopathy noted Chest Chest palpation & inspection: normal inspection of the chest Resp Other: occasional dry cough throughout visit Effort & Inspection: normal respiratory effort, able to speak in complete sentences, no audible wheezes, no stridor, not tachypneic, no tripod positioning and no use of accessory muscles Auscultation: clear to auscultation bilaterally Cardio Jugular venous distension: no JVD Rate: regular rate Rhythm: regular rhythm Skin Other: warm, dry General skin exam: no rashes or lesions noted Neuro General: patient oriented x3 Cranial nerves: Yes Normal hearing present Cognition (Neuro): normal cognition Gait exam (Neuro): Normal gait present Extrem General: Yes normal to inspection, Yes capillary refill normal, Yes no clubbing, cyanosis or edema and Yes no pedal edema Psych Appearance: grossly normal and well kempt Speech and movement: Normal speech and movement present and Clear speech present Affect: normal affect Attitude: cooperative Thought process: Normal thought process present Thought content: Normal thought content present Insight: Good insight present (Psych) Judgement: Good judgement present (Psych) Assessment & Plan Assessment & Plan (1) Interstitial lung disease: Code(s): J84.9 - Interstitial pulmonary disease, unspecified Category: Medical (2) Asthma: Code(s): J45.909 - Unspecified asthma, uncomplicated Category: Medical (3) Chronic cough: Code(s): R05.3 - Chronic cough Category: Medical Plan Radha has significantly responded to prednisone 60 mg with more than 75% reduction in cough, will continue for a total of 3 months and then taper slowly, until she has an upcoming appointment with rheumatology in August. Reviewed potential oysterman side effects of prednisone, including hyperglycemia, hypertension, risk of osteoporosis, glaucoma/cataracts, infection and adrenal supression. Discussed importance of following up with ophthamalogy as she has noted an increase in blurry vision, she was agreeable to call today, may need to taper doses of prednisone sooner. She will call office if she is directed to taper off prednisone. Discussed importance of calcium supplementation which she has been taking daily. Encouraged patient to continue to closely monitor blood glucose and blood pressure. Since cough has improved, will order PFT and repeat chest CT to assess for resolution of spiculated nodular finding on 05/2025 CT. She is requesting this to be sent to [facility]. She is aware to call if symptoms change. All questions were answered and patient is in agreement of plan. Will follow up in 6 weeks or sooner if needed. Orders: Orders CT chest wo IV con Today J84.9 - Interstitial pulmonary disease, unspecified, R05.3 - Chronic cough Medications: New prednisone 40 mg x 14 days, 30 mg x 14 days, 20 mg x 14 days, 10 mg x 14 days 20 mg PO DAILY 70 tabs 0RF Refilled prednisone 50 mg PO DAILY 30 tabs 0RF Coding Level of Care Code Est Pt Level 4 (37356) Complex visit Add On G2211 Diagnoses Interstitial lung disease J84.9 Asthma J45.909 Chronic cough R05.3
== END 2025-08-01 11:26 | disposition home or self-care (01) ==
LOC: HO.HPSW 11:02
PROVIDERS: PCP Internal Medicine; Visit Provider Nurse Practitioner Family
DX: J84.9 Interstitial pulmonary disease, unspecified (principal); J45.909 Unspecified asthma, uncomplicated; R05.3 Chronic cough
CPT/HCPCS: 99214; G2211

== ENCOUNTER → 2025-08-01 11:02 | Outpatient (BNVA) | payer MEDICARE, SELFPAY | PROVIDERS: PCP Internal Medicine; Visit Provider Nurse Practitioner Family | DX: R05.3 Chronic cough (principal); J84.9 Interstitial pulmonary disease, unspecified; I10 Essential (primary) hypertension; J45.991 Cough variant asthma; E66.9 Obesity, unspecified; Z68.42 Body mass index [BMI] 45.0-49.9, adult | CPT/HCPCS: 99212 ==

== ENCOUNTER 2025-08-20 08:19 | Outpatient (AMB) | payer MEDICARE, SELFPAY ==
--- OUTSIDE RECORDS SUMMARY | 2025-03-22 06:30 | XMS_ITS ---
Author Organization Ilir Hodge MD Address [address] [place] [phone] Care Team Providers Care Eggs Inspector Name Role Phone Ilir Hodge Primary Care [...] Risk Notes Problem Computed tomography result abnormal ([id number]) Abnormal CAT scan (R93.89) Active confirmed Vital Signs Blood pressure systolic 132 mm Hg 03/22/20 25 Blood pressure diastolic 86 mm Hg 025 Height 64 in 03/22/2025 Weight 245 lbs 03/22/2025 BMI 42.05 kg/m2 03/22/2025 Encounters Encounter Location Date Provider Diagnosis Ilir Hodge MD [address] [place] [address] [place] [phone] 03/22/2025 Ilir Hodge Abnormal CAT scan R93.89 [...] Up: 2 Months, Reason: Provider Name:Ilir alford, 09/13/2025 07:30:00 AM, [address], [place], [place], [phone], Provider Name:Ilir alford, 01/11/2026 07:15:00 AM, [address] [facility] [address], [address], [place], [place], [phone], Provider Name:Ilir Alfonso Usama alford, 01/18/2026 09:30:00 AM, [address] [place] [address] Drive, [address], [place], [phone], Progress Notes * SAVANNAH SIFUENTES EDOB: 9 (64 yo F)Acc No.[id number]:03/22/2025 Progress Notes Patient: SAVANNAH BRAR Provider: Lizbeth Hodge MD :1960 A ge:64 Y S ex:Female Date:03/22/2025 Address:[address] [place] [address] wale Hilario, [id number] Subjective: * Chief Complaints: * 4 week * HPI: S ymptom(s): patient is a 64 yo female here for 4 weel follow up visit/ still coughing. going to see television technician. * ROS: G eneral/Constitutional: Denies C hills. [...] 0 03/22/2025 Generated for Valentin medina/Alexia/Amberitting on: 1 10/21/2024 08:26 AM EST History and Physical Notes * HPI (History of Present Illness) Category Sub-Category Detail Notes Category Not es Symptom(s) patient is a 64 yo female here for 4 weel follow up visit/ still coughing. going to see television technician Examination Category Sub-Category Detail Notes Category Not es General Examination GENERAL APPEARANCE: alert, w ell hydrated, in no distress HEART: regular rate and rhy thm, no murmurs, rubs, gallops LUNGS: clear to auscultatio n bilaterally, good air movement, no wheezes, rales, rhonchi SKIN: good turgor
--- OUTSIDE RECORDS SUMMARY | 2025-05-14 04:00 | XMS_ITS ---
Author Organization Ilir Hodge MD Address [address] [place] [phone] Care Team Providers Care Skin Washer Name Role Phone Ilir Hodge Primary Care Provider Allergies Allergen (clinical drug ingredient) Drug/Non Drug Allergy documented on EMR Reaction Allergy Type Onset Date Status dulaglutide Trulicity pancreatitis Drug Allergy Ac tive Penicillin G Benzathine hives Drug Allergy Active sulfamethoxazole / trimethoprim Bactrim low platelets Drug Allergy Active REASON FOR VISIT 2 month, Patient hs MAURICE BS is 163 and A1C is 7.2 Medications Medication SIG (Take, Route, Frequency, Duration) Notes Start Date End Date Status Ibuprofen 800 MG 1 tablet with food or milk as needed Orally Three times a day 09/01/2019 Not-Taking Hydrocod Juan Carlos-Chlorphe Juan Carlos ER 10-8 MG/5ML 5 mL as needed Orally every 12 hrs for 20 days Partial Fill upon Patient Request 05/14/2025 Active HumaLOG KwikPen 100 UNIT/ML 60 units Subcutaneous Active Valtrex 1 GM 1 tablet Orally 3 times a day for 7 days 12/17/2020 Not-Taking Vitamin D3 50 MCG (2000 UT) 1 capsule Orally Once a day for 30 day(s) 01/01/2022 Not-Taking Montelukast Sodium 10 MG 1 tablet Orally Once a day 12/28/2024 Active Ipratropium-Albutero l 0.5-2.5 (3) MG/3ML 3 mL as needed Inhalation every 6 hrs 12/28/2024 Active amLODIPine Besylate 10 MG 1 tablet Orally Once a day 10/24/2019 Active Lisinopril-hydroCHLO ROthiazide 20-12.5 MG take 2 tablet by mouth once daily for 90 days Orally Once a day Active Paxlovid (300/100) 20 x 150 MG & 10 x 100MG 2 tabs of nirm and 1 tab sukhjinder Orally twice for 5 days 05/15/2022 Not-Taking Symbicort 160-4.5 MCG/ACT 2 puffs Inhalation twice a day 11/13/2024 Active Albuterol Sulfate HFA 108 (90 Base) MCG/ACT 2 puffs as needed Inhalation every 4 hrs Active Vitamin D3 125 MCG (5000 UT) 1 tablet Orally Once a day 11/05/2017 Active Sertraline HCl 100MG take 1 tablet by mouth once daily for 90 days Orally Once a day Active Rosuvastatin Calcium 40 MG 1 tablet Orally Once a day Active predniSONE 20 MG 2 tabsQD x 2 months Orally Once a day Active Aspir-Low 81 MG 1 tablet Orally Once a day for 30 day(s) Active Clobetasol Propionate 0.05 % 1 application Externally Twice a day for 10 day(s) 03/10/2021 Active Vital Signs Blood pressure systolic 152 mm Hg 05/14/20 25 Blood pressure diastolic 84 mm Hg 025 Height 64 in 05/14/2025 Weight 246 lbs 05/14/2025 BMI 42.22 kg/m2 05/14/2025 Encounters Encounter Location Date Provider Diagnosis Ilir Hodge MD [address] [place] [address] [place] [id number] 05/14/2025 Ilir Hodge Type 2 diabetes mellitus without complications E11.9 and Cough in adult R05.9 Assessments Encounter Date Diagnosis (ICD Code) Assessment Notes Treatment Notes Treatment Clinical Notes Section Notes 05/14/2025 Type 2 diabetes mellitus without complications (ICD-10 - E11.9) has been doing well, will continue current regiment 05/14/2025 Cough in adult (ICD-10 - R05.9) is started on prednisone and is going to repeat her ct in 3 weeks Plan Of Treatment Medication Medication Name Sig Start Date Stop Date Notes Hydrocod Juan Carlos-Chlorphe Juan Carlos ER 10-8 MG/5ML 5 mL as needed Orally every 12 hrs for 20 days 05/14/2025 Partial Fill up on Patient Request HumaLOG KwikPen 100 UNIT/ML 60 units Subcutaneous predniSONE 20 MG 2 tabsQD x 2 months Orally Once a day Treatment Notes Assessment Notes Type 2 diabetes mellitus wit hout complications has been doing well, will continue current regiment Cough in adult is started on predni sone and is going to repeat her ct in 3 weeks Next Appt Details Follow Up: 4 Weeks, Reason: Provider Name:Ilir alford, 09/13/2025 07:30:00 AM, [address] [place] [address], [address], [phone], Provider Name:Ilir Alfonso Usama alford, 01/11/2026 07:15:00 AM, [address] [place] [address], [address], [phone], Provider Name:Ilir alford, 01/18/2026 09:30:00 AM, [address] [place] [address], [address], [phone], Progress Notes * SAVANNAH SIFUENTES EDOB: (64 yo F)Acc No.[id number]:05/14/2025 Progress Notes Patient: SAVANNAH BRAR Provider: Lizbeth Hodge MD :1960 A ge:64 Y S ex:Female Date:05/14/2025 Address:[address] [place], [place] [address] Subjective: * Chief Complaints: * 2 monthPatient hs MAURICE BS is 163 and A1C is 7.2 * HPI: S ymptom(s): patient is a 64 yo female here for 2 month follow up visit. * ROS: G eneral/Constitutional: Constanza Jenkins hills. D enies F atigue. D enies F ever. D enies H eadache. E NT: Denies S ore throat. R espiratory: Constanza Jenkins ough. D enies S hortness of breath at rest. D enies S hortness of breath with exertion. G astrointestinal: Constanza Romero iarrhea. D enies N ausea. * Medical [...] 1 tablet Orally Once a day predniSONE 20 MG Tablet 2 tabsQD x 2 months Orally Once a day Lisinopril-hydroCHLOROthiazide 20-12.5 MG [...] tablet Orally Once a day Taking predniSONE 20 MG Tablet 2 tabsQD x 2 months Orally Once a day Taking Lisinopril-hydroCHLOROthiazide 20-12.5 [...] sukhjinder Orally twice Vitamin D3 50 MCG (1999 UT) Capsule [...] as needed Orally Three times a day * Allergies: B actrim: low plateletsPenicillin G Benzathine: hivesTrulicity: pancreatitisyes[Allergies Verified] Objective: * Vitals: H t: 64, Wt: 246, BMI:42.22, BP:152/84, Wt-k.58. * Examination: G eneral Examination: GENERAL APPEARANCE: a bnormal with repeat coughing.. HEAD: n ormocephalic. SKIN: g ood turgor. HEART: r egular rate and rhythm, no murmurs, rubs, gallops.? LUNGS: n o wheezes, rales, rhonchi, good air movement, clear to auscultation bilaterally. Assessment: * Assessment: 1. T ype 2 diabetes mellitus without complications - E11.9 (Primary) 2 . C ough in adult - R05.9 Plan: * Treatment: 2. C ough in adult Start Hydrocod Juan Carlos-Chlorphe Juan Carlos ER Suspension Extended Release, 10-8 MG/5ML, 5 mL as needed, Orally, every 12 hrs, 20 days, 200 ML, Refills 0, Notes to Pharmacist: Partial Fill upon Patient Request; C ontinue predniSONE Tablet, 20 MG, 2 tabsQD x 2 months, Orally, Once a day. Notes: is started on prednisone and is going to repeat her ct in 3 weeks * Procedure Codes: * Follow Up: 4 Weeks * * Sign off status: Completed true * Provider: Lizbeth Hodge MD Date: 0 05/14/2025 Generated for Valentin medina/Alexia/Amberitting on: 1 10/21/2024 08:27 AM EST History and Physical Notes * HPI (History of Present Illness) Category Sub-Category Detail Notes Category Not es Symptom(s) patient is a 64 yo female here for 2 month follow up visit Examination Category Sub-Category Detail Notes Category Not es General Examination GENERAL APPEARANCE: abnormal with repeat coughing. HEAD: normocephalic HEART: regular rate and rhy thm, no murmurs, rubs, gallops LUNGS: no wheezes, rales, r honchi, good air movement, clear to auscultation bilaterally SKIN: good turgor
--- OUTSIDE RECORDS SUMMARY | 2025-06-14 02:30 | XMS_ITS ---
Author Organization Ilir Hodge MD Address [address] [place] [phone] Care Team Providers Care Sink Maker Name Role Phone Ilir Hodge Primary Care Provider Allergies Allergen (clinical drug ingredient) Drug/Non Drug Allergy documented on EMR Reaction Allergy Type Onset Date Status dulaglutide Trulicity pancreatitis Drug Allergy Ac tive Penicillin G Benzathine hives Drug Allergy Active sulfamethoxazole / trimethoprim Bactrim low platelets Drug Allergy Active REASON FOR VISIT 1 MO F/U Medications Medication SIG (Take, Route, Frequency, Duration) Notes Start Date End Date Status predniSONE 20 MG 2 tabsQD x 2 months Orally Once a day Active Paxlovid (300/100) [...] KwikPen 100 UNIT/ML 60 units Subcutaneous Active Montelukast Sodium 10 MG 1 tablet Orally Once a day 12/28/2024 Active Lisinopril-hydroCHLO ROthiazide 20-12.5 MG take 2 tablet by mouth once daily for 90 days Orally Once a day Active amLODIPine Besylate 10 MG 1 tablet Orally Once a day 10/24/2019 Active Ipratropium-Albutero l 0.5-2.5 (3) MG/3ML 3 mL as needed Inhalation every 6 hrs 12/28/2024 Active Rosuvastatin Calcium 40 MG 1 tablet Orally Once a day Active Sertraline HCl 100MG take 1 tablet by mouth once daily for 90 days Orally Once a day Active Albuterol Sulfate HFA 108 (90 Base) MCG/ACT 2 puffs as needed Inhalation every 4 hrs Active Symbicort 160-4.5 MCG/ACT 2 puffs Inhalation twice a day 11/13/2024 Active Aspir-Low 81 MG 1 tablet Orally Once a day for 30 day(s) Active Clobetasol Propionate 0.05 % 1 application Externally Twice a day for 10 day(s) 03/10/2021 Active Vitamin D3 125 MCG (5000 UT) 1 tablet Orally Once a day 11/05/2017 Active Problems Problem Type SNOMED Code ICD Code Onset Dates Problem Status W/U Status Risk Notes Problem Thrombocytopenia (837333698) Thrombocytopenia (D69.6) Active confirmed Vital Signs Blood pressure systolic 192 mm Hg 06/14/20 25 Blood pressure diastolic 98 mm Hg 025 Height 64 in 06/14/2025 Weight 251 lbs 06/14/2025 BMI 43.08 kg/m2 06/14/2025 weight is up 5 pounds since 05-14-25 Encounters Encounter Location Date Provider Diagnosis Ilir Hodge MD [address] [place] [address] [place] [phone] 06/14/2025 Ilir Hodge Abnormal CAT scan R93.89 ; Thrombocytopenia D69.6 ; Type 2 diabetes mellitus without complications E11.9 and Cough in adult R05.9 Assessments Encounter Date Diagnosis (ICD Code) Assessment Notes Treatment Notes Treatment Clinical Notes Section Notes 06/14/2025 Abnormal CAT scan (ICD-10 - R93.89) need results of cat scan done this week/ report scanned in chart / had a cat scan of chest which is reportedly abnormal 06/14/2025 Thrombocytopenia (ICD-10 - D69.6) seeing hematology tomorrow./ US scan order faxed to [facility] dept 06/14/2025 Type 2 diabetes mellitus without complications (ICD-10 - E11.9) is doing fairly well even on steroids 06/14/2025 Cough in adult (ICD-10 - R05.9) prednisone no longer helping cough Plan Of Treatment Treatment Notes Assessment Notes Abnormal CAT scan need results of cat scan done this week/ report scanned in chart / had a cat scan of chest which is reportedly abnormal Thrombocytopenia seeing hematology to genesis./ US scan order faxed to [facility] dept Type 2 diabetes mellitus without complic ations is doing fairly well even on steroids Cough in adult prednisone no longer helping cough Pending Test Test Name Order Date US ABD 06/14/2025 Next Appt Details Follow Up: 2 Weeks, Reason: Provider Name:Ilir alford, 09/13/2025 07:30:00 AM, [address] [place] [address], [address] [place] [address], [phone], Provider Name:Ilir alford, 01/11/2026 07:15:00 AM, [address] [place] [address], [address] [place] [address], [phone], Provider Name:Ilir alford, 01/18/2026 09:30:00 AM, [address] [place] [address], [address] [place] [address], [phone], Progress Notes * SAVANNAH SIFUENTES EDOB: [birth year] (65 yo F)Acc No.[id number]:06/14/2025 Progress Notes Patient: SAVANNAH BRAR Provider: Lizbeth Hodge MD :[id number] A ge:65 Y S ex:Female Date:06/14/2025 Address:[address] [place] [address] wale [address]ilar[address], [id number] Subjective: * Chief Complaints: * 1 MO F/U * HPI: S ymptom(s): patient is a 65 yo female here for one month follow up visit/ platelets dropped to 1999 and had to get a platelet infusion.. had another catsca of chest and lower lobe has cleared up. but an upper lobe lesion. has multiple petichia. going to see hematology tomorrow. * ROS: G eneral/Constitutional: Denies C hills. D enies F atigue. D enies F ever. D enies H eadache. E NT: Denies S ore throat. R espiratory: Admits C ough. A dmits S hortness of breath at rest. A dmits S hortness of breath with exertion. G [...] Tablet 1 tablet Orally Once a day Hydrocod Juan Carlos-Chlorphe Juan Carlos ER 10-8 MG/5ML Suspension Extended Release 5 mL as needed Orally every 12 hrs , Notes to Pharmacist: Partial Fill upon Patient RequestHumaLOG KwikPen 100 UNIT/ML Solution Pen-injector 60 units Subcutaneous predniSONE 20 MG Tablet 2 tabsQD x 2 months Orally Once a day Taking Aspir-Low 81 [...] 2 puffs Inhalation twice a day Taking Ipratropium- Albuterol 0.5-2.5 (3) MG/3ML Solution 3 mL as needed Inhalation every 6 hrs Taking Montelukast Sodium 10 MG Tablet 1 tablet Orally Once a day Taking Lisinopril- hydroCHLOROthiazide 20-12.5 MG Tablet take 2 tablet by mouth once daily for 90 days Orally Once a day Taking amLODIPine Besylate 10 MG Tablet 1 tablet Orally Once a day Taking Hydrocod Juan Carlos-Chlorphe Juan Carlos ER 10-8 MG/5ML Suspension Extended Release 5 mL as needed Orally every 12 hrs , Notes to Pharmacist: Partial Fill upon Patient RequestTaking HumaLOG KwikPen 100 UNIT/ML Solution Pen-injector 60 units Subcutaneous Taking predniSONE 20 MG Tablet 2 tabsQD x 2 months Orally Once a day Not-Taking/PRNPaxlovid (300/100) 20 x 150 [...] Objective: * Vitals: H t: 64, Wt: 251, BMI:43.08, BP:192/98, Repeat BP:140/90, Wt-k.85. weight is up 5 pounds since 05-14-25. * Examination: G eneral Examination: GENERAL APPEARANCE: a bnormal with multiple petechia. HEAD: n ormocephalic. HEART: n o murmurs, rubs, gallops, regular rate and rhythm.? LUNGS: n o wheezes, rales, rhonchi, good air movement, clear to auscultation bilaterally. Assessment: * Assessment: 1. A bnormal CAT scan - R93.89 (Primary) 2 . T hrombocytopenia - D69.6 3 . T ype 2 diabetes mellitus without complications - E11.9 4 . C ough in adult - R05.9 Plan: * Treatment: 2. T hrombocytopenia I maging: US ABD Notes: seeing hematology tomorrow./ US scan order faxed to [facility] dept 3. T ype 2 diabetes mellitus without complications Notes: is doing fairly well even on steroids 4. C ough in adult Notes: prednisone no longer helping cough * Procedure Codes: * Follow Up: 2 Weeks * * Sign off status: Completed true * Provider: Lizbeth Hodge MD Date: Generated for Valentin medina/Alexia/Aries on: 10/21/2024 08:27 AM EST History and Physical Notes * HPI (History of Present Illness) Category Sub-Category Detail Notes Category Not es Symptom(s) patient is a 65 yo female here for one month follow up visit/ platelets dropped to 1999 and had to get a platelet infusion.. had another catsca of chest and lower lobe has cleared up. but an upper lobe lesion. has multiple petichia. going to see hematology tomorrow. Examination Category Sub-Category Detail Notes Category Not es General Examination GENERAL APPEARANCE: abnormal with multiple petechia HEAD: normocephalic HEART: no murmurs, rubs, ga llops, regular rate and rhythm LUNGS: no wheezes, rales, r honchi, good air movement, clear to auscultation bilaterally
--- OUTSIDE RECORDS SUMMARY | 2025-06-14 07:39 | XMS_ITS ---
Author Organization Ilir Hodge MD Address [address] [place] [phone] Care Team Providers Care Melter Assistant Name Role Phone Ilir Hodge Primary Care Provider [phone] REASON FOR VISIT Chest [address] Scan due Encounters Encounter Location Date Provider Diagnosis Ilir Hodge MD [address] [place] [phone] 06/14/2025 Ilir Hodge Interstitial lung disease J84.9 Assessments Encounter Date Diagnosis (ICD Code) Assessment Notes Treatment Notes Treatment Clinical Notes Section Notes 06/14/2025 Interstitial lung disease (ICD-10 - J84.9) CT Chest due Plan Of Treatment Treatment Notes Assessment Notes Interstitial lung disease CT Chest due Pending Test Test Name Order Date CT chest wo con 06/14/2025 Next Appt Details Provider Name:Ilir Forrester ier, 09/13/2025 07:30:00 AM, [address], [address], [place], [place], [phone], Provider Name:Ilir Forrester ier, 01/11/2026 07:15:00 AM, [address], [address], [place], [place], [phone], Provider Name:Ilir Forrester ier, 01/18/2026 09:30:00 AM, [address], [address], [place], [place], [phone], Progress Notes * SAVANNAH SIFUENTES EDOB: (65 yo F)Acc No.[id number]:06/14/2025 Patient: Janine SAVANNAH MEJIA :1960 A ge:65 Y S ex:Female Address:[address] [place] [address], [address] Subjective: * Chief Complaints: * C hest CT Scan due * Medical History: * Surgical History: * Hospitalization/Major Diagno stic Procedure: * Medications: Objective: * Vitals: * Physical Examination: Assessment: * Assessment: 1. I nterstitial lung disease - J84.9 Plan: * Treatment: * Procedure Codes: * true * Date: Generated for Valentin medina/Alexia/eTyunielsmitting on: 10/21/2024 08:27 AM EST
--- OUTSIDE RECORDS SUMMARY | 2025-06-18 09:38 | XMS_ITS ---
Author Organization Ilir Hodge MD Address [address] [place] [phone] Care Team Providers Care Tractor Driver Teamster Name Role Phone Ilir Hodge Primary Care Provider [phone] REASON FOR VISIT ER Encounters Encounter Location Date Provider Diagnosis Ilir Hodge MD [address] [place] [phone] 06/18/2025 Ilir Hodge Plan Of Treatment Next Appt Details Provider Name:Ilir alford, 09/13/2025 07:30:00 AM, [address], [address], [place], [place], [phone], Provider Name:Ilir alford, 01/11/2026 07:15:00 AM, [address], [address], [place], [phone], Provider Name:Ilir Forrester ier, 01/18/2026 09:30:00 AM, [address], [address], [place], [place], [phone], Progress Notes * SAVANNAH SIFUENTES EDOB: (65 yo F)Acc No.[id number]:06/18/2025 Patient: Janine SAVANNAH MEJIA :1960 A ge:65 Y S ex:Female Address:[address] [place] [address] [place], [address] * true * Date: Generated for Valentin medina/Alexia/Majorsmitting on: 10/21/2024 08:27 AM EST
--- OUTSIDE RECORDS SUMMARY | 2025-06-28 02:45 | XMS_ITS ---
Author Organization Ilir Hodge MD Address [address] [place] [phone] Care Team Providers Care Supervisor Inspection Room Name Role Phone Ilir Hodge Primary Care Provider [phone] Allergies Allergen (clinical drug ingredient) Drug/Non Drug [...] needed Inhalation every 6 hrs 12/28/2024 Active Symbicort 160-4.5 MCG/ACT 2 puffs Inhalation twice a day 11/13/2024 Active Albuterol Sulfate HFA 108 (90 Base) MCG/ACT 2 puffs as needed Inhalation every 4 hrs Active Sertraline HCl 100MG take 1 tablet by mouth once daily for 90 days Orally Once a day Active predniSONE 20 MG 2.5 tabs QD Orally Once a day Active Rosuvastatin Calcium 40 MG 1 tablet Orally Once a day Active Vitamin D3 125 MCG (5000 UT) 1 tablet Orally Once a day 11/05/2017 Active Clobetasol Propionate 0.05 % 1 application Externally Twice a day for 10 day(s) 03/10/2021 Active Aspir-Low 81 MG 1 tablet Orally Once a day for 30 day(s) Active Hydrocod Juan Carlos-Chlorphe Juan Carlos ER 10-8 MG/5ML 5 mL as needed Orally every 12 hrs Partial Fill upon Patient Request 05/14/2025 Active amLODIPine Besylate 10 MG 1 tablet Orally Once a day 10/24/2019 Active Lisinopril-hydroCHLO ROthiazide 20-12.5 MG take 2 tablet by mouth once daily for 90 days Orally Once a day Active Vital Signs Blood pressure systolic 138 mm Hg 06/28/20 25 Blood pressure diastolic 88 mm Hg 025 Height 64 in 06/28/2025 Weight 254 lbs 06/28/2025 BMI 43.59 kg/m2 06/28/2025 weight is up 3 pounds since 06-14-25 Encounters Encounter Location Date Provider Diagnosis Ilir Hodge MD [address] [place] [address] [place] [id number] 06/28/2025 Ilir Peñabernarda Interstitial lung disease J84.9 ; Thrombocytopenia D69.6 ; Cough in adult R05.9 ; Essential hypertension I10 and Hives of unknown origin L50.9 Assessments Encounter Date Diagnosis (ICD Code) Assessment Notes Treatment Notes Treatment Clinical Notes Section Notes 06/28/2025 Interstitial lung disease (ICD-10 - J84.9) feel as though she should go to [facility] 06/28/2025 Thrombocytopenia (ICD-10 - D69.6) is doing better followed by dr cedillo/ awaiting the us of the abdomen/ US order faxed to [facility] 06/28/2025 Cough in adult (ICD-10 - R05.9) should go to [facility]./ spoke with patient, she wants to discuss this again at her next visit in 4 weeks 06/28/2025 Essential hypertension (ICD-10 - I10) 06/28/2025 Hives of unknown origin (ICD-10 - L50.9) Plan Of Treatment Medication Medication Name Sig Start Date Stop Date Notes predniSONE 20 MG 2.5 tabs QD Orally Once a day Hydrocod Juan Carlos-Chlorphe Juan Carlos ER 10-8 MG/5ML 5 mL as needed Orally every 12 hrs 05/14/2025 Partial Fill upon Patient Request amLODIPine Besylate 10 MG 1 tablet Orally Once a day 10/24/2019 Lisinopril-hydroCHLOROth iazide 20-12.5 MG take 2 tablet by mouth once daily for 90 days Orally Once a day Treatment Notes Assessment Notes Interstitial lung disease feel as though she should go to [facility] Thrombocytopenia is doing better foll owed by dr cedillo/ awaiting the us of the abdomen/ US order faxed to [facility] Cough in adult should go to [facility]. / spoke with patient, she wants to discuss this again at her next visit in 4 weeks Next Appt Details Follow Up: 4 Weeks, Reason: Provider Name:Ilir alford, 09/13/2025 07:30:00 AM, [address] [place] [address], [address] [place] [address], [phone], Provider Name:Ilir alford, 01/11/2026 07:15:00 AM, [address] [place] [address], [place] [address], [place], [place], [phone], Provider Name:Ilir Forrester ier, 01/18/2026 09:30:00 AM, [address], [address], [place], [phone], Progress Notes * SAVANNAH SIFUENTES EDOB: [birth year] (65 yo F)Acc No.[id number]:06/28/2025 Progress Notes Patient: SAVANNAH BRAR Provider: Lizbeth Hodge MD :1960 A ge:65 Y S ex:Female Date:06/28/2025 Address:[address] [place] [address] [id number] Subjective: * Chief Complaints: * 2 week * HPI: S ymptom(s): patient is 65 yo female here for 2 week follow up visit/ platelet up to 100. they think it was from backing off of the prednisone. * ROS: G eneral/Constitutional: Denies C hills. D enies F atigue. D enies F ever. D enies H eadache. E NT: Denies S ore throat. R espiratory: Admits C ough. D enies S hortness of breath at rest. D enies S hortness of breath with exertion. D enies S putum production. A dmits W heezing. [...] 60 units Subcutaneous predniSONE 20 MG Tablet 2.5 tabs QD Orally Once a day Taking Aspir-Low 81 [...] units Subcutaneous Taking predniSONE 20 MG Tablet 2.5 tabs QD Orally Once a day Not-Taking/PRNPaxlovid (300/100) 20 [...] Objective: * Vitals: H t: 64, Wt: 254, BMI:43.59, BP:138/88, Wt-k.21. weight is up 3 pounds since 06-14-25. * Examination: G eneral Examination: GENERAL APPEARANCE: a lert, well hydrated, in no distress.? SKIN: g ood turgor. HEART: g rade 2/6 systolic murmur at left sternal border.? LUNGS: n o wheezes, rales, rhonchi, good air movement, clear to auscultation bilaterally. Assessment: * Assessment: 1. I nterstitial lung disease - J84.9 (Primary) 2 . T hrombocytopenia - D69.6 3 . C ough in adult - R05.9 4 . E ssential hypertension - I10 5 . H nestor of unknown origin - L50.9 Plan: * Treatment: 2. T hrombocytopenia Notes: is doing better followed by dr cedillo/ awaiting the us of the abdomen/ US order faxed to [facility] 3. C ough in adult Continue Hydrocod Juan Carlos-Chlorphe Juan Carlos ER Suspension Extended Release, 10-8 MG/5ML, 5 mL as needed, Orally, every 12 hrs, Notes to Pharmacist: Partial Fill upon Patient Request; C ontinue predniSONE Tablet, 20 MG, 2.5 tabs QD, Orally, Once a day. Notes: should go to [facility]./ spoke with patient, she wants to discuss this again at her next visit in 4 weeks 4. E ssential hypertension Continue Lisinopril-hydroCHLOROthiazide Tablet, 20-12.5 MG, take 2 tablet by mouth once daily for 90 days, Orally, Once a day; C ontinue amLODIPine Besylate Tablet, 10 MG, 1 tablet, Orally, Once a day. * Procedure Codes: * Follow Up: 4 Weeks * * Sign off status: Completed true * Provider: Lizbeth Hodge MD Date: Generated for Valentin medina/Alexia/Amberitting on: 10/21/2024 08:27 AM EST History and Physical Notes * Examination Category Sub-Category Detail Notes Category Not es General Examination GENERAL APPEARANCE: alert, w ell hydrated, in no distress HEART: grade 2/6 systolic m urmur at left sternal border LUNGS: no wheezes, rales, r honchi, good air movement, clear to auscultation bilaterally SKIN: good turgor
--- OUTSIDE RECORDS SUMMARY | 2025-07-19 02:15 | XMS_ITS ---
Author Organization Ilir Hodge MD Address [address] [place] [phone] Care Team Providers Care Lead Former Name Role Phone Ilir Hodge Primary Care Provider [phone] Results Component Value Reference Range Notes Liver Panel Reviewed date:07/19/2025 04:49:58 PM Interpretation: Performing Lab:[facility], [address] [place] [phone] Notes/Report: Bilirubin Total 1.3 0.0-1.0 mg/dL Bilirubin Direct 0.5 0.0-0.5 mg/dL Aspartate Amino Transferase 35 5-31 U/L Alanine Aminotransferase 44 0-31 U/L Total Protein 6.4 6.5-8.0 g/dL Albumin Level 4.0 3.5-5.0 g/dL Alkaline Phosphatase 70 39-117 U/L Glucose Fasting Reviewed date:07/19/2025 04:50:07 PM Interpretation: Performing Lab:[facility], [address] [place] [phone] Notes/Report: Glucose Fasting 82 60-99 mg/dL Lipid Panel with Reflex Reviewed date:07/19/2025 04:48:06 PM Interpretation: Performing Lab:[facility], [address] [place] [phone] Notes/Report: Triglycerides 70 <150 mg/dL Desirable Triglyceride: [...] A1c Reviewed date:07/19/2025 04:48:20 PM Interpretation: Performing Lab:[address] [phone] Notes/Report: Hemoglobin A1c % 6.7 <6.0 % [...] average glucose, using the formula of the G5Q-Swplclr Average Glucose study (ADAG), Diabetes Care, Vol.31,#8, Mar. 2007 REASON FOR VISIT FASTING LIPIDS Encounters Encounter Location Date Provider Diagnosis Ilir Hodge MD [address] [place] [phone] 07/19/2025 Ilir Hodge Pure hypercholestero lemia E78.00 and Type 2 diabetes mellitus without complications E11.9 Assessments Encounter Date Diagnosis (ICD Code) Assessment Notes Treatment Notes Treatment Clinical Notes Section Notes 07/19/2025 Pure hypercholesterolemia (ICD-10 - E78.00) 07/19/2025 Type 2 diabetes piter itus without complications (ICD-10 - E11.9) Plan Of Treatment Next Appt Details Provider Name:Ilir alford, 09/13/2025 07:30:00 AM, Hospital [facility], Suite [facility], [place], [place], [phone], Provider Name:Ilir alford, 01/11/2026 07:15:00 AM, [address] [place] [address], Suite [facility], [place], [place], [phone], Provider Name:Ilir alford, 01/18/2026 09:30:00 AM, Hospital [facility], [address] [facility], [place], [place], [phone], Progress Notes * SAVANNAH SIFUENTES EDOB: (65 yo F)Acc No.[id number]:07/19/2025 Progress Note Patient: SAVANNAH BRAR Provider: Lizbeth Hodge MD :1960 A ge:65 Y S ex:Female Date:07/19/2025 Address:[address] [place] [address] [phone] Subjective: * Chief Complaints: * 1 . [...] 1 09/18/2024 Generated for Valentin medina/Alexia/Amberitting on: 1 10/21/2024 08:26 AM EST
--- OUTSIDE RECORDS SUMMARY | 2025-07-19 02:30 | XMS_ITS ---
Author Organization Ilir Hodge MD Address [address] [place] [phone] Care Team Providers Care Outsole Scheduler Name Role Phone Ilir Hodge Primary Care [...] a day for 7 days 12/17/2020 Not-Taking Valsartan-hydroCHLOR Othiazide 320-25 MG 1 tablet Orally Once a day for 30 days 07/19/2025 Active Vitamin D3 50 MCG (2000 UT) 1 capsule Orally Once a day for 30 day(s) 01/01/2022 Not-Taking HumaLOG KwikPen 100 UNIT/ML 60 units Subcutaneous Active Hydrocod Juan Carlos-Chlorphe Juan Carlos ER 10-8 MG/5ML 5 mL as needed Orally every 12 hrs Partial Fill upon Patient Request 05/14/2025 Active amLODIPine Besylate 10 MG 1 tablet Orally Once a day 10/24/2019 Active Paxlovid (300/100) 20 x 150 MG & 10 x 100MG 2 tabs of nirm and 1 tab sukhjinder Orally twice for 5 days 05/15/2022 Not-Taking predniSONE 20 MG 2.5 tabs QD Orally Once a day Active Symbicort 160-4.5 MCG/ACT 2 puffs Inhalation twice a day 11/13/2024 Active Montelukast Sodium 10 MG 1 tablet Orally Once a day 12/28/2024 Active Ipratropium-Albutero l 0.5-2.5 (3) MG/3ML 3 mL as needed Inhalation every 6 hrs 12/28/2024 Active Albuterol Sulfate HFA 108 (90 Base) MCG/ACT 2 puffs as needed Inhalation every 4 hrs Active Sertraline HCl 100MG take 1 tablet by mouth once daily for 90 days Orally Once a day Active Clobetasol Propionate 0.05 % 1 application Externally Twice a day for 10 day(s) 03/10/2021 Active Aspir-Low 81 MG 1 tablet Orally Once a day for 30 day(s) Active Rosuvastatin Calcium 40 MG 1 tablet Orally Once a day Active Vitamin D3 125 MCG (5000 UT) 1 tablet Orally Once a day 11/05/2017 Active Vital Signs Blood pressure systolic 162 mm Hg 07/19/20 25 Blood pressure diastolic 84 mm Hg 025 Height 64 in 07/19/2025 Weight 254 lbs 07/19/2025 BMI 43.59 kg/m2 07/19/2025 Encounters Encounter Location Date Provider Diagnosis Ilir Hodge MD [address] [place] [address] [address] [place], [place] [phone] 07/19/2025 Ilir Hodge Essential hypertension I10 and Mild intermittent asthma, uncomplicated J45.20 Assessments Encounter Date Diagnosis (ICD Code) Assessment Notes Treatment Notes Treatment Clinical Notes Section Notes 07/19/2025 Essential hypertension (ICD-10 - I10) patient verbalized understandng of medication and directions for use 07/19/2025 Mild intermittent asthma, uncomplicated (ICD-10 - J45.20) stable, will continue current regiment Plan Of Treatment Medication Medication Name Sig Start Date Stop Date Notes Valsartan-hydroCHLOROthiazid e 320-25 MG 1 tablet Orally Once a day for 30 days 07/19/2025 Lisinopril-hydroCHLOROthiazi de 20-12.5 MG take 2 tablet by mouth once daily for 90 days Orally Once a day Treatment Notes Assessment Notes Essential hypertension patient verbalize d understandng of medication and directions for use Mild intermittent asthma, uncomplicated stable, will continue current regiment Next Appt Details Follow Up: 2 Weeks, Reason: Provider Name:Ilir alford, 09/13/2025 07:30:00 AM, [address] [place] [address], [address], [phone], Provider Name:Ilir alford, 01/11/2026 07:15:00 AM, [address] [place] [address], [address], [phone], Provider Name:Ilir alford, 01/18/2026 09:30:00 AM, [address] [place] [address], [address], [phone], Progress Notes * SAVANNAH SIFUENTES EDOB: (65 yo F)Acc No.[id number]:07/19/2025 Patient: Janine FLORESITAJANEE BRYANTLokesh Watson Provider: Lizbeth Hodge MD :1960 A ge:65 Y S ex:Female Date:07/19/2025 Address:[address] [place] [address] Beatris Hilario [phone] Subjective: * Chief Complaints: * 4 week * HPI: S ymptom(s): patient is a 65 yo female here for 4 week follow up visiyt/ on increased dose of prednisone. * ROS: G eneral/Constitutional: Denies C hills. D enies F atigue. D enies F ever. D enies H eadache. E NT: Denies S ore throat. R espiratory: Admits Alice ough. D enaudrey S hortness of breath at rest. A dmits S hortness of breath with exertion. D enies S putum production. A dmits W heezing. G astrointestinal: Denies D iarrhea. D enaudrey N ausea. * Medical History: * Surgical [...] 100 UNIT/ML Solution Pen-injector 60 units Subcutaneous Lisinopril-hydroCHLOROthiazide 20-12.5 MG Tablet take 2 tablet by mouth once daily for 90 days Orally Once a day amLODIPine Besylate 10 MG Tablet 1 tablet Orally Once a day Hydrocod Juan Carlos-Chlorphe Juan Carlos ER 10-8 MG/5ML Suspension Extended Release 5 mL as needed Orally every 12 hrs , Notes to Pharmacist: Partial Fill upon Patient RequestpredniSONE 20 MG Tablet 2.5 tabs QD Orally [...] UNIT/ML Solution Pen-injector 60 units Subcutaneous Taking Lisinopril- hydroCHLOROthiazide 20-12.5 MG Tablet take 2 tablet by mouth once daily for 90 days Orally Once a day Taking amLODIPine Besylate 10 MG Tablet 1 tablet Orally Once a day Taking Hydrocod Juan Carlos-Chlorphe Juan Carlos ER 10-8 MG/5ML Suspension Extended Release 5 mL as needed Orally every 12 hrs , Notes to Pharmacist: Partial Fill upon Patient RequestTaking predniSONE 20 MG Tablet 2.5 tabs QD [...] Vitals: H t: 64, Wt: 254, BMI:43.59, BP:162/84, Repeat BP:160/92, Wt-k.21. * Examination: G eneral Examination: GENERAL APPEARANCE: a lert, well hydrated, in no distress.? HEAD: n ormocephalic. SKIN: g ood turgor. HEART: r egular rate and rhythm, no murmurs, rubs, gallops.? LUNGS: n o wheezes, rales, rhonchi, good air movement, clear to auscultation bilaterally. Assessment: * Assessment: 1. E ssential hypertension - I10 (Primary) 2 . M ild intermittent asthma, uncomplicated - J45.20 Plan: * Treatment: 2. M ild intermittent asthma, uncomplicated Notes: stable, will continue current regiment * Procedure Codes: * Follow Up: 2 Weeks * * Sign off status: Completed true * Provider: Lizbeth Hodge MD Date: 09/18/2024 Generated for Valentin medina/Alexia/Majorsmitting on: 10/21/2024 08:27 AM EST History and Physical Notes * HPI (History of Present Illness) Category Sub-Category Detail Notes Category Not es Symptom(s) patient is a 65 yo female here for 4 week follow up visiyt/ on increased dose of prednisone Examination Category Sub-Category Detail Notes Category Not es General Examination GENERAL APPEARANCE: alert, w ell hydrated, in no distress HEAD: normocephalic HEART: regular rate and rhy thm, no murmurs, rubs, gallops LUNGS: no wheezes, rales, r honchi, good air movement, clear to auscultation bilaterally SKIN: good turgor
--- OUTSIDE RECORDS SUMMARY | 2025-08-03 03:15 | XMS_ITS ---
Author Organization Ilir Hodge MD Address [address] [place] [phone] Care Team Providers Care Soldering Machine Feeder Name Role Phone Ilir Hodge Primary Care [...] Duration) Notes Start Date End Date Status Paxlovid (300/100) 20 x 150 MG & 10 x 100MG 2 tabs of nirm and 1 tab sukhjinder Orally twice for 5 days 05/15/2022 Not-Taking Montelukast Sodium 10 MG 1 tablet Orally Once a day 12/28/2024 Active Ipratropium-Albutero l 0.5-2.5 (3) MG/3ML 3 mL as needed Inhalation every 6 hrs 12/28/2024 Active predniSONE 20 MG 2.5 tabs QD Orally Once a day Active Hydrocod Juan Carlos-Chlorphe Juan Carlos ER 10-8 MG/5ML 5 mL as needed Orally every 12 hrs Partial Fill upon Patient Request 05/14/2025 Active Albuterol Sulfate HFA 108 (90 Base) MCG/ACT 2 puffs as needed Inhalation every 4 hrs Active Sertraline HCl 100MG take 1 tablet by mouth once daily for 90 days Orally Once a day Active Vitamin D3 125 MCG (5000 UT) 1 tablet Orally Once a day 11/05/2017 Active Symbicort 160-4.5 MCG/ACT 2 puffs Inhalation twice a day 11/13/2024 Active Clobetasol Propionate 0.05 % 1 application Externally Twice a day for 10 day(s) 03/10/2021 Active HumaLOG KwikPen 100 UNIT/ML 60 units Subcutaneous Active Rosuvastatin Calcium 40 MG 1 tablet Orally Once a day Active Valsartan-hydroCHLOR Othiazide 320-25 MG 1 tablet Orally Once a day 07/19/2025 Active amLODIPine Besylate 10 MG 1 tablet Orally Once a day 10/24/2019 Active Aspir-Low 81 MG 1 tablet Orally Once a day for 30 day(s) Active Valtrex 1 GM 1 tablet Orally 3 times a day for 7 days 12/17/2020 Not-Taking Vitamin D3 50 MCG (2000 UT) 1 capsule Orally Once a day for 30 day(s) 01/01/2022 Not-Taking Ibuprofen 800 MG 1 tablet with food or milk as needed Orally Three times a day 09/01/2019 Not-Taking Vital Signs Blood pressure systolic 116 mm Hg 08/03/20 25 Blood pressure diastolic 72 mm Hg 025 Height 64 in 08/03/2025 Weight 256 lbs 08/03/2025 BMI 43.94 kg/m2 08/03/2025 weight is up 2 pounds since 07-19-25 Encounters Encounter Location Date Provider Diagnosis Ilir Hodge MD [address] [place] [address] [address] [place], [place] [phone] 08/03/2025 Ilir Hodge Essential hypertensi on I10 ; Pure hypercholesterolemia E78.00 and Type 2 diabetes mellitus without complications E11.9 Assessments Encounter Date Diagnosis (ICD Code) Assessment Notes Treatment Notes Treatment Clinical Notes Section Notes 08/03/2025 Essential hypertensi on (ICD-10 - I10) well controlled on valsartan.karly l continue current regiment 08/03/2025 Pure hypercholesterolemia (ICD-10 - E78.00) doing great on repatha, will continue current regiment 08/03/2025 Type 2 diabetes piter itus without complications (ICD-10 - E11.9) doing well with the pump, will cntinue current regiment Plan Of Treatment Medication Medication Name Sig Start Date Stop Date Notes HumaLOG KwikPen 100 UNIT/ML 60 units Subcutaneous Rosuvastatin Calcium 40 MG 1 tablet Orally Once a day Valsartan-hydroCHLOROthiazid e 320-25 MG 1 tablet Orally Once a day 07/19/2025 amLODIPine Besylate 10 MG 1 tablet Orally Once a day 10/24 Treatment Notes Assessment Notes Essential hypertension well controlled o n valsartan.will continue current regiment Pure hypercholesterolemia doing great on repatha, will continue current regiment Type 2 diabetes mellitus without complic ations doing well with the pump, will cntinue current regiment Next Appt Details Follow Up: 6 Weeks, Reason: Provider Name:Ilir alford, 09/13/2025 07:30:00 AM, [address] [place] [address], [address], [phone], Provider Name:Ilir alford, 01/11/2026 07:15:00 AM, [address] [place] [address], [address], [phone], Provider Name:Ilir alford, 01/18/2026 09:30:00 AM, [address] [place] [address], [address], [phone], Progress Notes * SAVANNAH SIFUENTES EDOB: [birth year] (65 yo F)Acc No.[id number]:08/03/2025 Progress Notes Patient: SAVANNAH BRAR Provider: Lizbeth Hodge MD :1960 A ge:65 Y S ex:Female Date:08/03/2025 Address:[address] [place] [address] [id number] Subjective: * Chief Complaints: * 2 week * HPI: S ymptom(s): patient is a 65 yo female here for 2 week follow up visit/ has a cold and cough but her coughing is better. * ROS: G eneral/Constitutional: Denies C hills. [...] tablet Orally Once a day Hydrocod Juan Carlos- Chlorphe Juan Carlos ER 10-8 MG/5ML Suspension Extended Release 5 mL as needed Orally every 12 hrs , Notes to Pharmacist: Partial Fill upon Patient RequestpredniSONE 20 MG Tablet 2.5 tabs QD Orally Once a day Valsartan-hydroCHLOROthiazide 320-25 MG Tablet 1 tablet Orally Once a day Taking Aspir-Low 81 [...] tabs QD Orally Once a day Taking Valsartan-hydroCHLOROthiazide 320-25 MG Tablet 1 tablet Orally Once a day Not-Taking/PRNPaxlovid (300/100) 20 [...] Objective: * Vitals: H t: 64, Wt: 256, BMI:43.94, BP:116/72, Wt-k.12. weight is up 2 pounds since 07-19-25. * Examination: G eneral Examination: GENERAL APPEARANCE: a lert, well hydrated, in no distress.? HEAD: n ormocephalic. SKIN: g ood turgor. HEART: r egular rate and rhythm, no murmurs, rubs, gallops.? LUNGS: n o wheezes, rales, rhonchi, abnormal still with cough.. Assessment: * Assessment: 1. E ssential hypertension - I10 (Primary) 2 . P ure hypercholesterolemia - E78.00 3 . T ype 2 diabetes mellitus without complications - E11.9 ? Plan: * Treatment: 2. P ure hypercholesterolemia Continue Rosuvastatin Calcium Tablet, 40 MG, 1 tablet, Orally, Once a day. Notes: doing great on repatha, will continue current regiment 3. T ype 2 diabetes mellitus without complications Continue HumaLOG KwikPen Solution Pen-injector, 100 UNIT/ML, 60 units, Subcutaneous. Notes: doing well with the pump, will cntinue current regiment * Procedure Codes: * Follow Up: 6 Weeks * * Sign off status: Completed true * Provider: Lizbeth Hodge MD Date: 10/04/2024 Generated for Valentin medina/Alexia/Amberitting on: 10/21/2024 08:27 AM EST History and Physical Notes * HPI (History of Present Illness) Category Sub-Category Detail Notes Category Not es Symptom(s) patient is a 65 yo female here for 2 week follow up visit/ has a cold and cough but her coughing is better. Examination Category Sub-Category Detail Notes Category Not es General Examination GENERAL APPEARANCE: alert, w ell hydrated, in no distress HEAD: normocephalic HEART: regular rate and rhy thm, no murmurs, rubs, gallops LUNGS: no wheezes, rales, r honchi, abnormal still with cough. SKIN: good turgor
--- OUTSIDE RECORDS SUMMARY | 2025-08-17 05:28 | XMS_ITS ---
Author Organization Ilir Hodge MD Address [address] [place] [phone] Care Team Providers Care Model Dresser Name Role Phone Ilir Hodge Primary Care Provider REASON FOR VISIT Chest CT Scan no contrast due . Encounters Encounter Location Date Provider Diagnosis Ilir Hodge MD [address] [facility] [address] [place], [place] [phone] 08/17/2025 Ilir Hodge Plan Of Treatment Next Appt Details Provider Name:Ilir alford, 09/13/2025 07:30:00 AM, [address] [facility], Suite [facility], [place], [place], [phone], Provider Name:Ilir Forrester ier, 01/11/2026 07:15:00 AM, [address], [address], [place], [phone], Provider Name:Ilir Forrester ier, 01/18/2026 09:30:00 AM, [address], [address], [place], [phone], Progress Notes * SAVANNAH SIFUENTES EDOB: (65 yo F)Acc No.[id number]:08/17/2025 Patient: Janine FLORESITAANNETTESAVANNAH :1960 A ge:65 Y S ex:Female Address:[address] [place] [address] [place], [id number] * * Date:
--- NOTE | 2025-08-20 08:26 | A.OFFVIS_ITS ---
Vital Signs 08/20/25 08:29 Height 5 ft 3 in Weight 267 lb 6.731 oz BMI 47.4 BP 138/84 Blood Pressure Location Rt brachial Position Sitting Pulse 88 Pulse Source Pulse Oximeter Pulse Oximetry (%) 96 Oxygen Delivery Method Room Air Intake Visit Reasons: f/u diabetes on a pump/ hyperlipidemia Intake Note: Patient present today to follow up on Diabetes Mellitus. Last Diabetic Eye exam: 04/2025, [facility] Last Podiatry Visit: Does not see a Software Sales Executive Random Glucose: 136 mg/dl Hgb A1C: 6.7 % 07/19/2025 Wealth Management Consultant Required: No Accompanied by: Self / Same As Patient Allergies Penicillins (PENICILLINS) Allergy (Severe, Verified 08/20/25 08:35) RASH Sulfa (Sulfonamide Antibiotics) (SULFA (SULFONAMIDE ANTIBIOTICS)) Allergy (Severe, Verified 08/20/25 08:35) THROMBOCYTOPENIA, severe penicillin V Allergy (Unknown, Verified 08/20/25 08:35) rash HPI Comments Details: Patient is 65 yo female with insulin deficent DM diagnosed about 30 years ago who presents for management of diabetes. , She is on an ilet pump and had been doing well since her last visit C-peptide 2021 0.26 negative esau D and negative islet cell antibody She is on a jennifer insertion site. Carries extra insertion site. Carries glucometer iLet download shows she has announcing 100% usual breakfast, 100% usual lunch and 100% dinner usual. Usual breakfast is 18.6 units, usual lunch is 22.9 units unusual dinner was 14 units. Total daily dose is 62.4 units of basal insulin with a total daily dose of 150.5. Dinner some time speaking announced late Dexcom download shows average glucose to be 198.8 with G mi of 8.1% and standard deviation of 83.2 with CV of 42%. 64% range with 0.9% low and 26.7% high with 8.2% very high. Trend shows elevation in point of cares post-lunch and post- dinner Retinopathy: last eye exam couple of wks ago Deniies neuropathy: Symptoms reported: denies numbness, tingling, cramping in lower extremities Has nephropathy: 01/08/25 eGFR>60 07/03/24 462 Has HLD on statin and Zetia with most recent LDL 18 Denies dyspnea, chest pain or symptoms of claudication Hives better She is seeing a shoemaker custom for interstitial lung disease. She is currently on prednisone 5mg daily which has increased her insulin requirements which the pump has been able to accommodate. Cough has not improved when she is on higher prednisone. She trialed stopping lisinopril for one month and no change in cough Exercise: Walks dogs for 1/2 hour on most days. 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 Absence of acromegalic features. Neck exam reveals nl size thyroid about 15 gms. No thyroid nodules palpable. Lungs CTA. No areas of diminished lung sounds, wheeze or rales. Heart S1 S2, Reg R/R. No M/R G. Skin exam reveals absence of vitiligo or acanthosis nigricans. 2+ edema Visual exam of foot performed. No ulcerations or open lesions. No inter digit maceration or fissuring. No onychomycosis, no callouses. Sensation intact to monofilament exam. Vibratory sensation is normal with 128 Hz tuning fork. 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 macrovascular complications . He is currently on a steroid taper Plan is have patient's announced lunch and dinner as ?? more ?during high dose steroid use and back to usual when steroids are tapered. If this does not correct the problem, patient may have to enter a small meal post-lunch and post- dinner during high dose steroid use. We will child care counselor the patient hypoglycemic risk is insulin sensitivity returned to steroids get tapered.. 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
[2025-08-20 08:29] VITALS: BP 138/84; PULSE 88; O2SAT 96; BMI 47.4
--- OUTSIDE RECORDS SUMMARY | 2025-08-20 08:29 | XMS_ITS | Patient Health Record ---
Author Organization Ilir Hodge MD Address [address] [place] [phone] Care Team Providers Care Route Inspector Name Role Phone Ilir Hodge Primary [...] ff Reviewed date:01/08/2025 12:36:23 PM Interpretation: Performing Lab:[facility], [address] [place] [phone] Notes/Report: White Blood Count 6.5 4.8-10.8 X10*3/uL [...] NRBC Abs Auto 0.000 0.0-0.012 X10*3/uL Comprehensive [place]. Panel Fa st Reviewed date:01/10/2025 07:02:22 PM Interpretation: Performing Lab:[facility], [address] [place] [phone] Notes/Report: Sodium 144 135-145 mmol/L Potassium 4.7 [...] Panel Reviewed date:01/08/2025 05:12:45 PM Interpretation: Performing Lab:[address] [phone] Notes/Report: Triglycerides 96 <150 mg/dL Desirable Triglyceride: [...] Total Reviewed date:01/08/2025 05:13:08 PM Interpretation: Performing Lab:[address] [phone] Notes/Report: Vitamin D 25-OH Total 20.3 >30 [...] Random Reviewed date:01/08/2025 12:34:10 PM Interpretation: Performing Lab:[facility], [address] [place] [phone] Notes/Report: Creatinine Urine 177.53 Microalbumin Urine 293.0 Microalbum/Creatinine Ratio Ur 165.0 <30 ug/mg cr Albumin/Creatinine Ratio Reference Ranges: Normal: < 30 ug/mg creatinine Microalbuminuria: 30 - 300 ug/mg creatinine Clinical Albuminuria: > 300 ug/mg creatinine Hemoglobin A1c Reviewed date:01/08/2025 03:03:50 PM Interpretation: Performing Lab:[facility], [address] [place] [phone] Notes/Report: Hemoglobin A1c % 7.0 <6.0 % [...] average glucose, using the formula of the G2T-Sigmivy Average Glucose study (ADAG), Diabetes Care, Vol.31,#8, Mar. 2007 UA ClnCatch+Micro w/rflx Cul t Reviewed date:01/08/2025 12:35:06 PM Interpretation: Performing Lab:[facility], [address] [place] [phone] Notes/Report: Urine, Clean Catch Color Urine Yellow Appearance Urine Hazy PH 6.0 5.0-9.0 Glucose Urine UA Negative Negative mg/dL Urine Blood Negative Negative Specific [place] - Urine 1.025 1.005-1.025 Urine Protein 30 (1+) Neg-Trace mg/dL Urine Ketones Negative Negative mg/dL Nitrite Urine Negative Negative Leukocyte Esterase Urine Negative Negative RBC Urine 0-2 0-2 /HPF WBC Urine 0-5 0-5 /HPF Squamous Epithelial Cell Urine 0-2 0-2 /HPF Bacteria Urine 1+ None Seen Hyaline Casts Urine 0-2 0-2 /LPF Liver Panel Reviewed date:07/19/2025 04:49:58 PM Interpretation: Performing Lab:[facility], [address] [place] [phone] Notes/Report: Bilirubin Total 1.3 0.0-1.0 mg/dL Bilirubin Direct 0.5 0.0-0.5 mg/dL Aspartate Amino Transferase 35 5-31 U/L Alanine Aminotransferase 44 0-31 U/L Total Protein 6.4 6.5-8.0 g/dL Albumin Level 4.0 3.5-5.0 g/dL Alkaline Phosphatase 70 39-117 U/L Glucose Fasting Reviewed date:07/19/2025 04:50:07 PM Interpretation: Performing Lab:[facility], [address] [place] [phone] Notes/Report: Glucose Fasting 82 60-99 mg/dL Lipid Panel with Reflex Reviewed date:07/19/2025 04:48:06 PM Interpretation: Performing Lab:[facility], [address] [place] [phone] Notes/Report: Triglycerides 70 <150 mg/dL Desirable Triglyceride: [...] A1c Reviewed date:07/19/2025 04:48:20 PM Interpretation: Performing Lab:[address] [phone] Notes/Report: Hemoglobin A1c % 6.7 <6.0 % [...] average glucose, using the formula of the C2H-[place] Average Glucose study (ADAG), Diabetes Care, Vol.31,#8, Mar. 2007 Glucose, finger stick Reviewed date:11/06/2024 09:00:09 AM Interpretation: Performing Lab: Notes/Report: Value 90 Glucose, Whole Blood Reviewed date:09/11/2024 12:40:04 PM Interpretation: Performing Lab:[address] [address] Notes/Report: Glucose, Whole Blood 139 60-115 mg/dL METER #: [id number] Testing performed [facility], [place]. tomosynthesis screening B I Reviewed date:09/28/2024 04:55:24 PM Interpretation: Performing Lab: Notes/Report: [facility] [address] [place] [address] Mammography Report Signed Patient: Radha Sifuentes MR#: [id number] 93 : 1960 Acct:[id number] Age/Sex: 64 / F ADM Date: 09/20/24 Loc: CHAZ Attending Dr: Ilir Hodge MD Ordering Physician: Ilir Hodge MD Results: 2Be nign Findings Date of Service: 09/20/24 Follow Up: 1 Year From Orig inal Mammogram Procedure(s): MM tomosynthesis screening BI Accession Number(s): [id number] cc: Ilir Hodge MD EXAMINATION: MM SCREENING [...] by: Kateryna Quevedo DO 09/28/2024 02:51 PM [facility] Dictated By: Kateryna Quevedo DO Signed By: <Electronically signed by Kateryna Quevedo DO in OV> 09/28/24 1451 DD/ 1045 TD/TT: 09/20/24 1108 Screw Remover: [place] [facility] [address] [place] [address] Mammography Report Signed Patient: Sandra Sifuentes MR#: [id number] 93 : 1960 Acct:[id number] Age/Sex: 64 / F ADM Date: 09/20/24 Loc: HO.MAMMO Attending Dr: Ilir Hodge MD Ordering Physician: Ilir Hodge MD Results: 2Be jose Findings Date of Service: 09/20/24 Follow Up: 1 Year From Orig inal Mammogram Procedure(s): MM tomosynthesis screening BI Accession Number(s): [id number] cc: Ilir Hodge MD EXAMINATION: MM SCREENING [...] by: Kateryna Quevedo DO 09/28/2024 02:51 PM [facility] Dictated By: Kateryna Quevedo DO Signed By: <Electronically signed by Kateryna Quevedo DO in OV> 09/28/24 1451 DD/ 1045 TD/TT: 09/20/24 1108 Screw Remover: XR chest 2V Reviewed date:11/06/2024 05:58:04 PM Interpretation: Performing Lab: Notes/Report: [address] [address] XRay Report Signed Patient: Radha Sifuentes MR#: [id number] 93 : 1960 Acct:[id number] Age/Sex: 64 / F ADM Date: 11/06/24 Loc: HO.RANDELLAY Attending Dr: Ilir Hodge MD Ordering Physician: Ilir Hodge MD Date of Service: 11/06/24 Procedure(s): XR chest 2V Accession Number(s): [id number] cc: Ilir Hodge MD EXAMINATION: XR CHEST [...] in OV> 11/06/241556 DD/ 9 TD/TT: 11/06/24937 Screw Remover: [address] [address] XRay Report Signed Patient: Sandra Sifuentes MR#: [id number] 93 : 1960 Acct:[id number] Age/Sex: 64 / F ADM Date: 11/06/24 Loc: HO.XRAY Attending Dr: Ilir Hodge MD Ordering Physician: Ilir Hodge MD Date of Service: 11/06/24 Procedure(s): XR marjan st 2V Accession Number(s): [id number] cc: Ilir Hodge MD EXAMINATION: XR CHES [...] in OV> 11/06/241556 DD/ 9 TD/TT: 11/06/24937 Screw Remover: Glucose, Whole Blood Reviewed date:11/16/2024 12:16:53 PM Interpretation: Performing Lab:[facility], [address] [place] [phone] Notes/Report: Glucose, Whole Blood 53 60-115 mg/dL METER #: [id number] Testing performed in the [facility] [place]. Glucose, Whole Blood Reviewed date:11/16/2024 12:16:39 PM Interpretation: Performing Lab:[facility], [address] [place] [phone] Notes/Report: Glucose, Whole Blood 93 60-115 mg/dL METER #: [id number] Testing performed in the [facility] [place]. Glucose, Whole Blood Reviewed date:02/16/2025 12:07:13 PM Interpretation: Performing Lab:[facility], [address] [place] [phone] Notes/Report: Glucose, Whole Blood 175 60-115 mg/dL METER #: [id number] Testing performed in the [facility] [place]. Cyclic Citrullinated Peptide Reviewed date:02/27/2025 12:41:48 PM Interpretation: Performing Lab:[facility], [address] [place] [phone] Notes/Report: Cyclic Citrullinated Peptide <16 Reference Range Negative: <20 Weak Positive: 20-39 Moderate Positive: 40-59 Strong Positive: >59 THIS TEST WAS PERFORMED AT: [facility] [address] [address] KIERSTEN DIAZ MD VARUN Reflex Titer and Pattern Reviewed date:02/27/2025 12:42:08 PM Interpretation: Performing Lab:[facility], [address] [place] [phone] Notes/Report: Anti Nuclear Antibody Screen POSITIVE NEGATIVE VARUN IFA is a first line screen for detecting the presence of up to approximately 150 autoantibodies in various autoimmune diseases. A positive VARUN IFA result is suggestive of autoimmune disease and reflexes to titer and pattern. Further laboratory testing may be considered if clinically indicated. For additional information, please refer to http://education.Therabiol/faq/ XSA062 (This link is being provided for informational/ [...] [employer] Consensus on VARUN Patterns (https://doi.org/10.1 515/sbvd-5601-4278) THIS TEST WAS PERFORMED AT: [facility] [address] [place] [phone] KIERSTEN DIAZ MD VARUN Titer 2 TNP VARUN Pattern 2 TNP VARUN Titer 3 TNP VARUN Pattern 3 TNP Sjogren's Antibodies Reviewed date:02/28/2025 06:24:17 PM Interpretation: Performing Lab:[facility], [address] [place] [phone] Notes/Report: Antibody to SS-A Antigen <1.0 NEG <1.0 NEG AI Antibody to SS-B Antigen <1.0 NEG <1.0 NEG AI THIS TEST WAS PERFORMED AT: [facility] [address] [place] [phone] KIERSTEN DIAZ MD Scleroderma 70 Antibody Reviewed date:02/28/2025 06:22:56 PM Interpretation: Performing Lab:[facility], [address] [place] [phone] Notes/Report: Scleroderma 70 Antibody <1.0 NEG <1.0 NEG AI THIS TEST WAS PERFORMED AT: [facility] [address] [place] [phone] KIERSTEN DIAZ MD Anti DNA DS Antibody Reviewed date:02/28/2025 06:24:31 PM Interpretation: Performing Lab:[facility], [address] [place] [phone] Notes/Report: Anti DNA DS Antibody <1 IU/mL Interpretation < or = 4 Negative 5-9 Indeterminate > or = 10 Positive THIS TEST WAS PERFORMED AT: [facility] [address] [place] [phone] KIERSTEN DIAZ MD Rheumatoid Factor Reviewed date:02/20/2025 08:53:03 AM Interpretation: Performing Lab:[facility], [address] [place] [phone] Notes/Report: Rheumatoid Factor < 13.0 <15.0 IU/mL Hypersensitive Pneumonitis P rf Reviewed date:02/28/2025 06:24:39 PM Interpretation: Performing Lab:[facility], [address] [place] [phone] Notes/Report: Asperg fumigatus Precip Abs NEGATIVE NEGATIVE Micropoly faeni Abs NEGATIVE NEGATIVE [place] serum Abs NEGATIVE NEGATIVE Thermo candidus Abs NEGATIVE NEGATIVE Thermoa vulgaris #1 NEGATIVE NEGATIVE Saccharo pora viridis Abs NEGATIVE NEGATIVE This test was developed and its analytical performance characteristics have been determined by [employer]. It has not been cleared or approved by the FDA. This assay has been validated pursuant to the CLIA regulations and is used for clinical purposes. THIS TEST WAS PERFORMED AT: [facility] [address] [place] [address] ROLAN GAY MD,PHD,DAE US abdomen complete Reviewed date:02/27/2025 12:05:42 PM Interpretation: Performing Lab: Notes/Report: [facility] [address] [place] [address] Ultrasound Report Signed Patient: Radha Sifuentes MR#: [id number] 93 : 1960 Acct:[id number] Age/Sex: 64 / F ADM Date: 02/26/25 Loc: HO.HMGCX Attending Dr: Ilir Hodge MD Ordering Physician: Ilir Hodge MD Date of Service: 02/26/25 Procedure(s): US abdomen complete Accession Number(s): [id number] cc: Ilir Hodge MD CLINICAL HISTORY: ABD [...] 02/27/25 1133 DD/ 1132 TD/TT: 02/27/25 1132 Screw Remover: [facility] [address] [place] [address] [place] [address] Ultrasound Report Signed Patient: Sandra Sifuentes MR#: [id number] 93 : 1960 Acct:[id number] Age/Sex: 64 / F ADM Date: 02/26/25 [facility]: Ilir Hodge MD Ordering Physician: Ilir Hodge MD Date of Service: 02/26/25 Procedure(s): US abdomen complete Accession Number(s): [id number] cc: Ilir Hodge MD CLINICAL HISTORY: AB [...] 02/27/25 1133 DD/ 1132 TD/TT: 02/27/25 1132 Screw Remover: Glucose, Whole Blood Reviewed date:05/21/2025 10:53:55 AM Interpretation: Performing Lab:[facility], [address] [place] [phone] Notes/Report: Glucose, Whole Blood 235 60-115 mg/dL METER #: [id number] Testing performed in the [facility] , [address], [facility]. Complete Blood Count Auto Di ff Reviewed date:06/14/2025 07:36:11 AM Interpretation: Performing Lab:[facility], [address] [place] [phone] Notes/Report: White Blood Count 12.0 4.8-10.8 X10*3/uL [...] Dif Reviewed date:06/14/2025 07:36:23 AM Interpretation: Performing Lab:[facility], [address] [place] [phone] Notes/Report: White Blood Count 11.2 4.8-10.8 X10*3/uL [...] (0-2) Ovalocytes 1+ (5-14) Toxic Vacuolation PRESENT Jayy Cells 1+ (0-2) Comprehensive Met. Panel Reviewed date:06/14/2025 07:36:41 AM Interpretation: Performing Lab:[facility], [address] [place] [phone] Notes/Report: Sodium 145 135-145 mmol/L Potassium 4.1 [...] REVIEW Reviewed date:06/14/2025 07:36:49 AM Interpretation: Performing Lab:[facility], [address] [place] [phone] Notes/Report: SLIDE REVIEW VERIFIED Type and Screen Reviewed date:06/14/2025 07:36:57 AM Interpretation: Performing Lab:[facility], [address] [place] [phone] Notes/Report: mL/HR Rate to transfuse BBK Product 100 Results at Issue Units as of 06/14/25212 ... Test View Group: Most Recent Platelet Count LABORATORY Date Time Test Result Flag Normal Range 06/13/25 2316 PLT 24 # L 160-400 X10*3/uL Plt <10,000 No Blood Type OP Antibody Screen NEGATIVE Pheresis Platelets Reviewed date:06/14/2025 07:37:07 AM Interpretation: Performing Lab:[facility], [address] [place] [phone] Notes/Report: Pheresis Platelets [id number] OP PHPLT Pheresis Platelets TRANSFUSED 06/14/25211 Complete Blood Count Auto Di ff Reviewed date:06/15/2025 12:31:04 PM Interpretation: Performing Lab:[facility], [address] [place] [phone] Notes/Report: White Blood Count 11.1 4.8-10.8 X10*3/uL [...] Dehydrogenase Reviewed date:06/15/2025 12:30:39 PM Interpretation: Performing Lab:[facility], [address] [place] [phone] Notes/Report: Lactate Dehydrogenase 320 122-220 U/L Luis A Garza Reviewed date:07/19/2025 04:47:30 PM Interpretation: Performing Lab:[facility], [address] [place] [phone] Notes/Report: Luis A Garza See Note Specimen held untested for 24 hours; Call to request Chemistry testing. Complete Blood Count Auto Di ff Reviewed date:07/20/2025 12:52:02 PM Interpretation: Performing Lab:[facility], [address] [place] [phone] Notes/Report: White Blood Count 17.1 4.8-10.8 X10*3/uL Red Blood Count 5.11 4.20-5.50 X10*6/uL Hemoglobin 15.2 12.0-16.0 g/dl Hematocrit 46.1 37.0-47.0 % Mean Corpuscular Volume 90.2 80.0-98.0 fL Mean Corpuscular Hemoglobin 29.7 27.0-33.0 pg Mean Corpuscular HGB Conc 33.0 31.0-35.0 g/dl Red Cell Distribution Width 13.8 11.0-16.0 % Platelet Count 281 160-400 X10*3/uL Mean Platelet Volume 10.1 9.4-12.3 fL Neutrophils Percent Auto 88.9 45-73 % Imm Gran Pct Auto 0.8 0.0-0.4 % Lymphocytes Percent Auto 8.3 20-40 % Monocytes Percent Auto 1.8 2-11 % Eosinophils Percent Auto 0.0 0-4 % Basophils Percent Auto 0.2 0-2 % NRBC Pct Auto 0.0 0.0-0.2 /100WBC Neutrophils Absolute Auto 15.2 2.0-8.3 x10*3/uL Imm Gran Abs Auto 0.14 0.00-0.03 X10*3/uL Lymphocytes Absolute Auto 1.4 1.2-4.9 X10*3/uL Monocytes Absolute Auto 0.3 0.1-1.2 X10*3/uL Eosinophils Absolute Auto 0.0 0.0-0.4 X10*3/uL Basophils Absolute Auto 0.0 0.0-0.2 X10*3/uL NRBC Abs Auto 0.000 0.0-0.012 X10*3/uL Lactate Dehydrogenase Reviewed date:07/20/2025 12:51:37 PM Interpretation: Performing Lab:[facility], [address] [place] [phone] Notes/Report: Lactate Dehydrogenase 405 122-220 U/L Reason For Referral Reason Hives of unknow orig in Diagnosis 1 Hives of unknown gregg gin (L50.9) Referral Organization Ilir Hodge MD Referring Provider First Name Ilir Referring Provider Last Name Ayesha Referring Provider Speciality Internal edicine Referred Provider COREY CHAND Referred Provider Specialty Allergy/Immu nology General Notes Penny Saenz 11:58:48 AM EST > info faxed to the [facility] office p [phone] f [phone] they will call patient with an apptLetty [...] 03:03:49 PM > appt is in the [place] office, patient is aware of appointment Referral [...] tablet Orally Once a day 10/24/2019 Active Albuterol Sulfate HFA 108 (90 Base) MCG/ACT 2 puffs as needed Inhalation every 4 hrs Active Valtrex 1 GM 1 tablet Orally 3 times a day for 7 days 12/17/2020 Not-Taking Sertraline HCl 100MG take 1 tablet [...] tablet Orally Once a day 11/05/2017 Active Montelukast Sodium 10 MG 1 tablet [...] a day for 10 day(s) 03/10/2021 Active predniSONE 20 MG 2.5 tabs QD Orally Once a day Active Aspir-Low 81 MG 1 tablet Orally Once a day for 30 day(s) Active Hydrocod Juan Carlos-Chlorphe Juan Carlos ER 10-8 MG/5ML 5 mL as needed Orally every 12 hrs Partial Fill upon Patient Request 05/14/2025 Active Immunizations Vaccine Route Administration Date Status Commjignesh man Fluarix Quadrivalent IM Intramuscular 05/28/2014 Adminralph red Flu Vaccine IM Intramuscular 05/24/2015 Administered PPSV23 (Pnemovax) IM Intramuscular 11/22/2015 Administered Fluarix Quadrivalent IM Intramuscular 05/22/2016 Adminralph red Fluarix Quadrivalent IM Intramuscular 05/10/2017 Adminralph red Fluarix Quadrivalent IM Intramuscular 05/10/2018 Adminralph red Prevnar 13 IM Intramuscular 11/22/2018 Administered Fluarix Quadrivalent IM Intramuscular 05/22/2019 Adminguilhermee red Covid Vaccine Unknown 10/04/2020 Administered Moderna [...] Problem Status W/U Status Risk Notes Problem 104476003 Type 2 diabetes mellitus without complications (E11.9) Active confirmed Problem Thrombocytopenia (189051047) Thrombocytopenia (D69.6) Active confirmed Problem 23516836 Lymphocytosis (D72.820) Active confirmed Problem 65609273 Depression (F32.9) Active confirmed Problem 63114359 Vitamin D defici ency (E55.9) Active confirmed Problem 430642162 Diverticulitis (K57.92) Active confirmed Problem 502115273 Mild intermitten t asthma, uncomplicated (J45.20) Active confirmed Problem 386901527 Other specified menopausal and perimenopausal disorders (N95.8) Active confirmed Problem 714058518 Encounter for screening for other protozoal diseases and helminthiases (Z11.6) Active confirmed Problem 576394631 Asymptomatic menopausal state (Z78.0) Active confirmed Problem 57970820 Essential hypert ension (I10) Active confirmed Problem Interstitial lung disease (346051412) Interstitial lung disease (J84.9) Active confirmed Problem 03255244 Dysthymia (F34.1) Active confirmed Problem 39826542 Sciatica of righ t side (M54.31) Active confirmed Problem 500645376 Pure hypercholesterolemia (E78.00) Active confirmed Problem 249575358 Hypertensive cri sis (I16.9) Active confirmed Problem Computed tomography result abnormal (653397145) Abnormal CAT scan (R93.89) Active confirmed Problem 01969387 Kidney stone on left side (N20.0) Active confirmed Problem Abdominal mass (finding) (609100489) Abdominal mass of other site (R19.09) Active confirmed Problem 533165929 Screening mammog osiris for breast cancer (Z12.31) Active confirmed Problem Urticaria (176142593) Hives of unknown origin (L50.9) Active confirmed Vital Signs Blood pressure diastolic 72 mm Hg 08/03/2025 timothy ght is up 2 pounds since 07-19-25 Height 64 in 08/03/2025 weight is up 2 pounds since 07-19-25 Blood pressure systolic 116 mm Hg 08/03/2025 weig ht is up 2 pounds since 07-19-25 Weight 256 lbs 08/03/2025 weight is up 2 pounds since 07-19-25 BMI 43.94 kg/m2 08/03/2025 weight is up 2 pounds since 07-19-25 Encounters Encounter Location Date Provider Diagnosis Ilir Hodge MD [address] [place], [place] [id number] 01/08/2025 Ilir Hodge Blood tests for rout ine general physical examination Z00.00 ; Essential hypertension I10 ; Pure hypercholesterolemia E78.00 ; Type 2 diabetes mellitus without complications E11.9 and Vitamin D deficiency E55.9 Ilir Hodge MD [address] [place] [id number] 07/19/2025 Ilir Hodge Pure hypercholestero lemia E78.00 and Type 2 diabetes mellitus without complications E11.9 Ilir Hodge MD [address] [place] [id number] 08/25/2024 Ilir Hodge Type 2 diabetes piter itus without complications E11.9 ; Hives of unknown origin L50.9 and Essential hypertension I10 Ilir Hodge MD [address] [place] [id number] 09/07/2024 Ilir Hodge Type 2 diabetes piter itus without complications E11.9 and Hives of unknown origin L50.9 Ilir Hodge MD [address] [place] [id number] 11/06/2024 Ilir Hodge Type 2 diabetes piter itus without complications E11.9 and Mild intermittent asthma, uncomplicated J45.20 Ilir Hodge MD [address] [place] [id number] 11/13/2024 Ilir Hodge Bronchitis J40 Ilir Hodge MD [address] [place] [id number] 11/27/2024 Ilir Hodge Persistent cough for 3 weeks or longer R05.3 ; Type 2 diabetes mellitus without complications E11.9 and Essential hypertension I10 Ilir Hodge MD [address] [place] [id number] 12/28/2024 Ilir Hodge Type 2 diabetes piter itus without complications E11.9 and Mild intermittent asthma, uncomplicated J45.20 Ilir Hodge MD [address] [place] [id number] 01/15/2025 Ilir Hodge Annual physical exam Z00.00 ; Abdominal mass of other site R19.09 ; Mild intermittent asthma, uncomplicated J45.20 ; Hives of unknown origin L50.9 ; Essential hypertension I10 ; Depression F32.9 ; Type 2 diabetes mellitus without complications E11.9 and Depression screening Z13.31 Ilir Hodge MD [address] [place] [id number] 02/19/2025 Ilir Hodge Hives of unknown gregg gin L50.9 ; Essential hypertension I10 ; Type 2 diabetes mellitus without complications E11.9 and Persistent cough R05.3 Ilir Hodge MD [address] [place] [id number] 03/22/2025 Ilir Hodge Abnormal CAT scan R9 3.89 and Cough R05.9 Ilir Hodge MD [address] [place] [address] [id number] 05/14/2025 Ilir Hodge Type 2 diabetes piter itus without complications E11.9 and Cough in adult R05.9 Ilir Hodge MD [address] [place] [id number] 06/14/2025 Ilir Hodge Abnormal CAT scan R9 3.89 ; Thrombocytopenia D69.6 ; Type 2 diabetes mellitus without complications E11.9 and Cough in adult R05.9 Ilir Hodge MD [address] [place] [id number] 06/28/2025 Ilir Hodge Interstitial lung di sease J84.9 ; Thrombocytopenia D69.6 ; Cough in adult R05.9 ; Essential hypertension I10 and Hives of unknown origin L50.9 Ilir Hodge MD [address] [place] [id number] 07/19/2025 Ilir Hodge Essential hypertensi on I10 and Mild intermittent asthma, uncomplicated J45.20 Ilir Hodge MD [address] [place] [id number] 08/03/2025 Ilir Hodge Essential hypertensi on I10 ; Pure hypercholesterolemia E78.00 and Type 2 diabetes mellitus without complications E11.9 Ilir Hodge MD [address] [place] [id number] 08/17/2025 Ilir Hodge MD [address] [place] [address] [id number] 03/05/2025 Ilir Hodge MD [address] [place] [id number] 06/14/2025 Ilir Hodge Interstitial lung di sease J84.9 Ilir Hodge MD [address] [place] [phone] 06/18/2025 [facility] Assessments Encounter Date Diagnosis (ICD Code) Assessment Notes Treatment Notes Treatment Clinical Notes Section Notes 01/08/2025 Blood tests for routine general physical examination (ICD-10 - Z00.00) 07/19/2025 Pure hypercholesterolemia (ICD-10 - E78.00) 08/25/2024 Type 2 diabetes mellitus without complications (ICD-10 - E11.9) doing well with the pump and even on the steroids 08/25/2024 Hives of unknown origin (ICD-10 - L50.9) referral to allergy 09/07/2024 Type 2 diabetes mellitus without complications (ICD-10 - E11.9) stable, will continue current regiment 09/07/2024 Hives of unknown origin (ICD-10 - L50.9) is going to see end stapler in one month. 11/06/2024 Type 2 diabetes [...] testing, THE ORDER WAS FAXED TO [facility], 02/19/2025 Hives of unknown [...] tomorrow./ US scan order faxed to [facility] de[facility] 06/28/2025 Interstitial lung disease (ICD-10 - J84.9) feel as though she should go to [facility] 06/28/2025 Thrombocytopenia (ICD-10 - D69.6) is doing better followed by dr cedillo/ awaiting the us of the abdomen/ US order faxed to [facility] 07/19/2025 Essential hypertensi on (ICD-10 - I10) patient verbalized understandng of medication and directions for use 08/03/2025 Essential hypertensi on (ICD-10 - I10) well controlled on valsartan.will continue current regiment 06/14/2025 Interstitial lung disease (ICD-10 - J84.9) CT Chest due -202501/08/2025 Essential hypertensi on (ICD-10 - I10) 07/19/2025 Type 2 diabetes mellitus without complications (ICD-10 - E11.9) 08/25/2024 Essential hypertensi on (ICD-10 - I10) [...] (ICD- 10 - R05.9) should go to [place]./ spoke with patient, she wants to discuss this again at her next visit in 4 weeks 07/19/2025 Mild intermittent asthma, uncomplicated (ICD-10 - J45.20) stable, will continue current regiment 08/03/2025 Pure hypercholesterolemia (ICD-10 - E78.00) doing great on repatha, will continue current regiment 01/08/2025 Pure hypercholesterolemia (ICD-10 - E78.00) 11/27/2024 Essential hypertensi on (ICD-10 - I10) running a little high today, will contiue curent regiment and will contiue to monitor 01/15/2025 Hives of unknown origin (ICD-10 - L50.9) waiting for allergy consultt 02/19/2025 Persistent cough (ICD-10 - R05.3) have suggested going to [place] 06/14/2025 Type 2 diabetes mellitus without complications (ICD-10 - E11.9) is doing fairly well even on steroids 06/28/2025 Essential hypertensi on (ICD-10 - I10) 08/03/2025 Type 2 diabetes mellitus without complications (ICD-10 - E11.9) doing well with the pump, will cntinue current regiment 01/08/2025 Type 2 diabetes mellitus without complications [...] need to speak to dr reeves at [facility] about her chest ct/ Will call [...] 01/05/2023 Next Appt Details Provider Name:Ilir alford, 09/13/2025 07:30:00 AM, [address] [place] [address], [address], [place], [place], [phone], Provider Name:Ilir alford, 01/11/2026 07:15:00 AM, [address] [place] [address], [address], [place], [place], [phone], Provider Name:Ilir mendiolar, 01/18/2026 09:30:00 AM, [address], [address], [place], [place], [phone], Insurance Providers Payer Name Payer Address Payer Phone Subscriber Number Group Number Insured Name Patient Relationship to Insured Coverage Start Date Coverage End Date [facility] [employer] [address] [address] [place] [address] [id number] RADHA SIFUENTES Self - patient is the insured MEDICARE [employer] [address] [place] [id number] RADHA SIFUENTES Self - patient is the insured Medical (General) History Medical History History ICD Code colonoscopy 2010 due in 5 ye ars; colonoscopy 04/13/[address] Georgina Philippe in 2027
[2025-08-20 08:38] LABS: Glucose, Whole Blood 136 mg/dL (60-115)
== END 2025-08-20 08:54 | disposition home or self-care (01) ==
LOC: HO.ENCR 08:20
PROVIDERS: PCP Internal Medicine; Visit Provider Internal Medicine Endocrinology, Diabetes & Metabolism
DX: E13.9 Other specified diabetes mellitus without complications (principal); S36.209S Unspecified injury of unspecified part of pancreas, sequela; E78.5 Hyperlipidemia, unspecified
CPT/HCPCS: 99214; G2211

== ENCOUNTER → 2025-08-20 08:19 | Outpatient (BNVA) | payer MEDICARE, SELFPAY | PROVIDERS: PCP Internal Medicine; Visit Provider Internal Medicine Endocrinology, Diabetes & Metabolism | DX: E13.9 Other specified diabetes mellitus without complications (principal); S36.209S Unspecified injury of unspecified part of pancreas, sequela; E78.5 Hyperlipidemia, unspecified; Z96.41 Presence of insulin pump (external) (internal) | CPT/HCPCS: 82947; 99212 ==